=== PATIENT | female | born 1960 | race African-American/Black ===

== ENCOUNTER 2017-05-21 09:46 | Inpatient (IN) | payer OTHER ==
[2017-05-21 10:12] VITALS: BMI 25.8
--- NOTE | 2017-05-21 10:23 | PDOC ---
History of Present Illness <Deshawn Rivers - Last Filed: 05/21/17 14:47> - General History Source: Patient - History of Present Illness Initial Comments: 05/21/17 10:28 HPI obtained from staff @ [facility] Patient is a 56 y.o. female with a PMH of NSTEMI (s/p CABG 03/2017), Still's disease, LLE gangrene, ESRD (on HD MWF, access via L AV fistula) who presents from [facility] with c/o acute onset of rectal bleed. As per nursing staff, an aide was changing the patient's diaper @ 8 a.m. when she noticed patient's diaper was saturated with dark red blood and she noted active bleed from rectum after cleaning the patient. Patient was admitted to [facility] on 05/19 following an admission for an NSTEMI that was followed by a period of acute respiratory failure. Patient denies any current chest pain, shortness of breath, abdominal pain, fevers/chills. Allergy: Iodine Surgical: L AV Fistula, CABG March 14, 2017 x3, PMD: Guzman <Belia Clinton - Last Filed: 05/25/17 18:13> - General Chief Complaint: Rectal Bleed Stated Complaint: RECTAL BLEED Time Seen by Provider: 05/21/17 10:20 Past History <Deshawn Rivers - Last Filed: 05/21/17 14:47> - Past Medical History COPD: Yes Dialysis: Yes (esrf) GI Disorders: Yes (gerd) - Suicide/Smoking/Psychosocial Hx Smoking History: Unknown if ever smoked Have you smoked in the past 12 months: No Information on smoking cessation initiated: No Hx Alcohol Use: No Drug/Substance Use Hx: No <Belia Clinton - Last Filed: 05/25/17 18:13> - Past Medical History Allergies/Adverse Reactions: Allergies Allergy/AdvReac Type Severity Reaction Status Date / Time shellfish derived Allergy Verified 05/21/17 10:06 Home Medications: Ambulatory Orders Aspirin [ASA -] 325 mg PO DAILY 05/21/17 Budesonide [Pulmicort Flexhaler] 90 mcg IH BID 05/21/17 Calcitriol [Rocaltrol -] 0.25 mcg PO ASDIR 05/21/17 Docusate Sodium 100 mg PO TID 05/21/17 Epoetin Keegan [Procrit] 10,000 unit SQ 05/21/17 Ipratropium/Albuterol Sulfate [Iprat-Albut 0.5-3(2.5) mg/3 ml] 3 ml IH Q4H 05/21 Midodrine HCl 5 mg PO ASDIR 05/21/17 Pantoprazole Sodium 40 mg PO DAILY 05/21/17 Sennosides [Senna Lax] 2 tab PO BID 05/21/17 Vit B Comp No.3/Folic/C/Biotin [Leticia-Pancho Rx Tablet] 1 each PO DAILY 05/21/17 Review of Systems - Review of Systems Constitutional: No: Chills, Fever HEENTM: No: Recent change in vision Respiratory: No: Shortness of Breath Cardiac (ROS): No: Chest Pain ABD/GI: Yes: Rectal Bleeding. No: Constipated, Diarrhea, Nausea, Vomiting : No: Burning, Dysuria <Mary Beth,Belia - Last Filed: 05/25/17 18:13> *Physical Exam - Vital Signs Last Vital Signs Temp Pulse Resp BP Pulse Ox 97.5 F L 78 20 67/45 95 05/21/17 10:06 05/21/17 12:00 05/21/17 12:00 05/21/17 12:00 05/21/17 12:00 <Deshawn Rivers - Last Filed: 05/21/17 14:47> - Vital Signs Last Vital Signs Temp Pulse Resp BP Pulse Ox 97.5 F L 81 20 91/45 94 L 05/21/17 10:06 05/21/17 10:06 05/21/17 10:06 05/21/17 10:06 05/21/17 10:06 - Physical Exam Comments: 05/25/17 17:17 GENERAL: obese middle aged female, AAOx2 (name and year), lying in bed, lethargic : active rectal bleed, multiple thrombosed hemmroids - ranging in size from 3- 5 cm HEENT: pallor, dry mucous membranes LUNGS: bibasilar rales, poor inspiratory effort HEART: Regular rate and rhythm, normal S1 and S2 without murmur, rub or gallop. ABDOMEN: obese, NT, normoactive BS EXTREMITY: L AV Fistula (+) thrill, (+) bruit, L gangrenous foot <Belia Clinton - Last Filed: 05/25/17 18:13> ED Treatment Course - LABORATORY CBC & Chemistry Diagram: 05/21/17 11:49 05/21/17 11:49 - ADDITIONAL ORDERS Additional order review: Laboratory Results 05/21/17 05/21/17 05/21/17 13:58 11:52 11:49 PT with INR INR PTT (Actin FS) Sodium Potassium Chloride Carbon Dioxide Anion Gap BUN Creatinine Creat Clearance w eGFR Random Glucose Calcium Total Bilirubin AST ALT Alkaline Phosphatase Creatine Kinase Troponin I B-Natriuretic Peptide Total Protein Albumin Stool Occult Blood Positive Blood Type O POSITIVE O POSITIVE Antibody Screen Negative Crossmatch See Detail 05/21/17 05/21/17 05/21/17 11:49 11:49 11:49 PT with INR 25.60 H INR 2.27 H PTT (Actin FS) 51.8 H Sodium 139 Potassium 3.8 Chloride 97 L Carbon Dioxide 23 Anion Gap 19 H BUN 32 H Creatinine 3.9 H Creat Clearance w eGFR 11.84 Random Glucose 92 Calcium 8.3 L Total Bilirubin 2.1 H AST 53 H ALT 54 Alkaline Phosphatase 108 Creatine Kinase 41 Cancelled Troponin I 1.11 H* Cancelled B-Natriuretic Peptide Cancelled Total Protein 5.5 L Albumin 2.2 L Stool Occult Blood Blood Type Antibody Screen Crossmatch 05/21/17 11:49 RBC 2.65 L MCV 85.7 MCHC 30.2 L RDW 23.8 H MPV 8.8 Neutrophils % 85.3 H Lymphocytes % 5.7 L Monocytes % 7.7 Eosinophils % 0.3 Basophils % 1.0 - RADIOLOGY Radiology Studies Ordered: Category Date Time Status CHEST X-RAY PORTABLE* [RAD] Stat Radiology 05/21/17 11:47 Completed CHEST X-RAY PORTABLE* [RAD] Stat Radiology 05/21/17 14:06 Taken <Deshawn Rivers - Last Filed: 05/21/17 14:47> - LABORATORY CBC & Chemistry Diagram: 05/25/17 05:20 05/25/17 05:20 <Belia Clinton - Last Filed: 05/25/17 18:13> Medical Decision Making - Medical Decision Making 05/25/17 16:50 56 y.o. female presents from [facility] with rectal bleed. Physical exam significant for bright red blood in diaper with large external hemorrhoid however no visible active site of bleeding. DDx includes lower GI bleed- external hemorrhoids, diverticulosis, AVM vs. UGI - PUD, gastritis. VS significant for hypotension (BP 91/45 @ presentation). Will obtain CBC, CMP , likely transfusion. Will obtain 2 units Type O blood while awaiting Type and Screen. Hb 6.9. Difficulty obtaining PIV access. CVC placed in L IJ - patient given 2 units PRBC with SBP improving to 90's. ICU paged for admission. Labs significant for Troponin 1.1 likely 2/2 to demand ischemia 2/2 to anemia 2/ 2 lower GI bleed Patient admitted to ICU for further evaluation. Will continue to monitor while in ED. 05/25/17 18:10 <Belia Clinton - Last Filed: 05/25/17 18:13> *DC/Admit/Observation/Transfer <Deshawn Rivers - Last Filed: 05/21/17 14:47> <Belia Clinton - Last Filed: 05/25/17 18:13> Diagnosis at time of Disposition: GI bleed
[2017-05-21 11:59] LABS: EOS % 0.3 % (0-4.5); HEMATOCRIT 22.7 % (32.4-45.2); LYMPH % 5.7 % (8-40); MCH 25.9 pg (25.7-33.7); MCHC 30.2 g/dl (32.0-36.0); MEAN CELL VOLUME 85.7 fl (80-96); MEAN PLT VOLUME 8.8 fl (7.5-11.1); MONO % 7.7 % (3.8-10.2); NEUT % 85.3 % (42.8-82.8); PLATELET COUNT 111 K/MM3 (134-434); RBC 2.65 M/mm3 (3.60-5.2); RDW 23.8 % (11.6-15.6); WHITE BLOOD COUNT 8.4 K/mm3 (4.0-10.0)
--- NOTE | 2017-05-21 12:10 | PDOC ---
Attending Attestation - Resident Resident Name: Belia Clinton - ED Attending Attestation I have performed the following: I have examined & evaluated the patient, The case was reviewed & discussed with the resident, I agree w/resident's findings & plan, Exceptions are as noted - HPI HPI: 05/21/17 11:52 """The patient is a 56 year old female, with a significant past medical history of DM, HTN, ME s/p CABG (03/2017) and ESRD on Hemodialysis, with recent admission to OSH for respiratory failure, who presents to the emergency department via ems from [facility] for rectal bleeding today as per half-way. The patient was noted to have two episodes of dark red blood with stool this morning at [facility] as per nursing staff. Pt has known h/o hemorrhoids. Is reportedly only on aspirin, no other anticoagulation. The patient denies chest pain, shortness of breath, headache and dizziness. The patient denies fever, chills, nausea, vomit, diarrhea and constipation. The patient denies dysuria, frequency, urgency and hematuria. Allergies: NKDA - Physicial Exam PE: 05/21/17 12:10 "GENERAL: Awake, alert, and fully oriented, in no acute distress HEAD: No signs of trauma EYES: PERRLA, EOMI, sclera anicteric, conjunctiva clear ENT: Auricles normal inspection, hearing grossly normal, nares patent, oropharynx clear without exudates. Moist mucosa NECK: Nontender, no stepoffs, Normal ROM, supple, no lymphadenopathy, JVD, or masses LUNGS: Breath sounds equal, clear to auscultation bilaterally. No wheezes, and no crackles HEART: Regular rate and rhythm, normal S1 and S2, no murmurs, rubs or gallops ABDOMEN: Soft, nontender, normoactive bowel sounds. No guarding, no rebound. No masses RECTAL: + nnamdi blood in diaper, + multiple external hemorrhoids, no palpable internal hemorrhoids, no melena EXTREMITIES: Normal range of motion, no edema. No clubbing or cyanosis. No cords, erythema, or tenderness NEUROLOGICAL: Cranial nerves II through XII intact. 5/5 strength and sensation in all extremities, Normal speech, normal gait, normal cerebellar function SKIN: Warm, Dry, normal turgor, no rashes or lesions noted. " - Critical Care Time Total Critical Care Time: 180 Critical Care Statement: The care of this patient involved high complexity decision making to prevent further life threatening deterioration of the patient 's condition and/or to evaluate & treat vital organ system(s) failure or risk of failure. - Medical Decision Making 05/21/17 12:12 56 F with lower GI bleed. Pt with external hemorrhoids on exam but unclear whether this is source of bleed. Pt is hypotensive in ED to 70s systolic. Possibly 2/2 hemorrhage. - Labs, T&S, coags, lactate - PRBC Transfusion - GI consult - Admit ICU 05/21/17 14:11 Hb 6.9 2u PRBC ordered 3-lumen CVC placed in L IJ under sterile technique. Trop 1.1, likely demand in context of symptomatic anemia. Pt to be admitted to ICU Dr. Iniguez consulted, awaiting callback 05/21/17 14:[address] Noel Procedures - Central Line Central Line Lumen: triple Central Line Position: internal jugular (L) Anesthesia: 1% Lidocaine Amount of anesthesia (ccs): 3 Complications: none Post Central Line Insertion: sutured, good blood return, position confirmed w/ CXR
[2017-05-21 12:19] LABS: INR 2.27 (0.82-1.09); PROTHROMBIN TIME (PATIENT) 25.6 SEC (9.98-11.88)
[2017-05-21 12:22] LABS: ACTIVATED PTT 51.8 SECONDS (26.9-34.4)
[2017-05-21 12:23] LABS: HEMOGLOBIN 6.9 GM/dL (10.7-15.3)
[2017-05-21 12:24] LABS: ALBUMIN 2.2 g/dl (3.4-5.0); ALK PHOS 108 U/L (45-117); ANION GAP 19 (8-16); BILIRUBIN,TOTAL 2.1 mg/dL (0.2-1.0); BLOOD UREA NITROGEN 32 mg/dL (7-18); CALCIUM 8.3 mg/dL (8.5-10.1); CHLORIDE 97 mmol/L (98-107); CO2 23 mmol/L (21-32); CREATININE 3.9 mg/dL (0.55-1.02); GLUCOSE,RANDOM 92 mg/dL (74-106); POTASSIUM 3.8 mmol/L (3.5-5.1); SGOT/AST 53 U/L (15-37); SGPT/ALT 54 U/L (12-78); SODIUM 139 mmol/L (136-145); TOT PROT 5.5 g/dl (6.4-8.2)
--- NOTE | 2017-05-21 13:05 | EKG ---
Test Reason : Blood Pressure : / mmHG Vent. Rate : 077 BPM Atrial Rate : 077 BPM P-R Int : 162 ms QRS Dur : 112 ms QT Int : 438 ms P-R-T Axes : 087 162 -56 degrees QTc Int : 495 ms NORMAL SINUS RHYTHM RIGHT AXIS DEVIATION LOW VOLTAGE QRS INCOMPLETE RIGHT BUNDLE BRANCH BLOCK CANNOT RULE OUT ANTERIOR INFARCT , AGE UNDETERMINED ABNORMAL ECG NO PREVIOUS ECGS AVAILABLE Confirmed by DWAYNE YEPEZ MD ([id number]) on 05/21/2017 1:05:01 PM Referred By: Confirmed By:DWAYNE YEPEZ MD
[2017-05-21] MEDS ORDERED: PANTOPRAZOLE SODIUM 40 MG VIAL IVPUSH ONE (15:42)
[2017-05-21 15:43] LABS: N-TERMINAL BNP 310698.61 pg/ml (5-125)
--- NOTE | 2017-05-21 15:49 | CONSULT ---
Consult Consult Specialty:: Nephrology Reason for Consultation:: ESRD - History of Present Illness Chief Complaint: rectal bleeding History of Present Illness: Pt is a 56 year old female with pmhx of ESRD on HD, CAD s/p cabg, DM, and HTN who was sent to the ER for rectal bleeding. She has a history of hemorrhoids. She is on aspirin. She was found to be anemic. She was dialyzed last night at [facility] dialysis. That was her first treatment there at the time. She denies shortness of breath. She denies chest pain. She is a poor historian. She denies fever or chills. She is awake but has not been able to give much history. - History Source History Provided By: Medical Record - Past Medical History Cardio/Vascular: Yes: CAD Renal/: Yes: Renal Failure, Hemodialysis Heme/Onc: Yes: Anemia Endocrine: Yes: Diabetes Mellitus - Past Surgical History Past Surgical History: Yes: AV Fistula/Graft, CABG - Alcohol/Substance Use Hx Alcohol Use: No - Smoking History Smoking history: Unknown if ever smoked Have you smoked in the past 12 months: No Home Medications - Allergies Allergies/Adverse Reactions: Allergies Allergy/AdvReac Type Severity Reaction Status Date / Time shellfish derived Allergy Verified 05/21/17 10:06 - Home Medications Home Medications: Ambulatory Orders Aspirin [ASA -] 325 mg PO DAILY 05/21/17 Budesonide [Pulmicort Flexhaler] 90 mcg IH BID 05/21/17 Calcitriol [Rocaltrol -] 0.25 mcg PO ASDIR 05/21/17 Docusate Sodium 100 mg PO TID 05/21/17 Ipratropium/Albuterol Sulfate [Iprat-Albut 0.5-3(2.5) mg/3 ml] 3 ml IH Q4H 05/21 Midodrine HCl 5 mg PO ASDIR 05/21/17 Pantoprazole Sodium 40 mg PO DAILY 05/21/17 Sennosides [Senna Lax] 2 tab PO BID 05/21/17 Vit B Comp No.3/Folic/C/Biotin [Leticia-Pancho Rx Tablet] 1 each PO DAILY 05/21/17 Family Disease History - Family Disease History Family History: Denies Review of Systems - Review of Systems Constitutional: reports: No Symptoms Eyes: reports: No Symptoms HENT: reports: No Symptoms Neck: reports: No Symptoms Cardiovascular: reports: No Symptoms Respiratory: reports: No Symptoms Gastrointestinal: reports: Rectal Bleeding Genitourinary: reports: No Symptoms Musculoskeletal: reports: No Symptoms Integumentary: reports: No Symptoms Neurological: reports: No Symptoms Endocrine: reports: No Symptoms Hematology/Lymphatic: reports: No Symptoms Psychiatric: reports: No Symptoms Physical Exam Vital Signs: Vital Signs Temperature 97.4 F L 05/21/17 14:45 Pulse Rate 78 05/21/17 14:45 Respiratory Rate 16 05/21/17 14:45 Blood Pressure 58/37 05/21/17 14:45 O2 Sat by Pulse Oximetry (%) 95 05/21/17 12:00 Eyes: Yes: Conjunctiva Clear HENT: Yes: Atraumatic Cardiovascular: Yes: S1, S2 Respiratory: Yes: On Nasal O2 Gastrointestinal: Yes: Soft Renal/: Yes: Incontinence Musculoskeletal: Yes: Muscle Weakness Edema: Yes Edema: LLE: 1+, RLE: 1+ Neurological: Yes: Confusion Psychiatric: Yes: Agitated Labs: CBC, BMP 05/21/17 11:49 05/21/17 11:49 Laboratory Tests 05/21/17 05/21/17 05/21/17 11:49 11:49 11:52 WBC 8.4 Hgb 6.9 L* Plt Count 111 L Sodium 139 Potassium 3.8 Chloride 97 L Carbon Dioxide 23 Anion Gap 19 H BUN 32 H Creatinine 3.9 H Lactic Acid Calcium 8.3 L Total Bilirubin 2.1 H AST 53 H Stool Occult Blood Positive 05/21/17 13:58 WBC Hgb Plt Count Sodium Potassium Chloride Carbon Dioxide Anion Gap BUN Creatinine Lactic Acid 2.2 H* Calcium Total Bilirubin AST Stool Occult Blood Laboratory Tests 05/21/17 05/21/17 05/21/17 11:49 11:49 13:58 WBC 8.4 Hgb 6.9 L* Plt Count 111 L Sodium 139 Potassium 3.8 Chloride 97 L Anion Gap 19 H BUN 32 H Creatinine 3.9 H Lactic Acid 2.2 H* Calcium 8.3 L Total Bilirubin 2.1 H Troponin I 1.11 H* Imaging - Results Chest X-ray: Report Reviewed Problem List - Problems (1) ESRD (end stage renal disease) Code(s): N18.6 - END STAGE RENAL DISEASE (2) CAD (coronary artery disease) Code(s): I25.10 - ATHSCL HEART DISEASE OF [place] CORONARY ARTERY W/O ANG PCTRS (3) Hx of CABG Code(s): Z95.1 - PRESENCE OF AORTOCORONARY BYPASS GRAFT (4) Anemia Code(s): D64.9 - ANEMIA, UNSPECIFIED (5) GI bleed Code(s): K92.2 - GASTROINTESTINAL HEMORRHAGE, UNSPECIFIED Assessment/Plan Current Medications Generic Name Dose Route Start Last Admin Trade Name Freq PRN Reason Stop Dose Admin Albuterol/Ipratropium 1 amp 05/21/17 18:00 Duoneb - NEB Q4HPO RUEL Chlorhexidine Gluconate 1 applic 05/21/17 22:00 Hibiclens For Decolonization - TP HS RUEL Pantoprazole Sodium 80 mg/ 100 mls @ 10 mls/hr 05/21/17 18:00 Sodium Chloride IVPB Q10H RUEL 8 MG/HR Norepinephrine Bitartrate 8, 500 mls @ 18.75 mls/hr 05/21/17 16:45 000 mcg/ Dextrose IV TITR RUEL Protocol 5 MCG/MIN Midodrine 5 mg 05/21/17 16:45 Proamatine - PO ASDIR RUEL Mupirocin 1 applic 05/21/17 22:00 Bactroban Ointment (For Decolonization) - NS 05/26/17 21:59 BID RUEL Non-Formulary Medication 90 mcg 05/21/17 22:00 Budesonide [Pulmicort Flexhaler] IH BID RUEL Impression 1. ESRD 2. GI bleed likely from hemorrhoids 3. hemorrhoids 4. anemia 5. CAD 6. s/p CABG 7. DM 8. hypotension Plan - transfuse PRBC and repeat hg - will arrange for HD in am - pt admitted to the ICU - discussed with ER and with ICU team - GI eval - cardio eval as she has recent CABG - will follow Dr Plummer
[2017-05-21] MEDS ORDERED: MIDODRINE HCL 5 MG TABLET PO SCH (16:45)
[2017-05-21] MEDS ORDERED: NOREPINEPHRINE BITARTRATE 4 MG/4 ML ML IV ONE (16:49)
[2017-05-21] MEDS: NOREPINEPHRINE BITARTRATE 8,000 MCG in DEXTROSE 5%-WATER - 492 ML IV SCH (17:25)
[2017-05-21] MEDS ORDERED: PNEUMOC 13-VAL CONJ-DIP CRM/PF 0.5 ML DISP.SYRIN IM ONE (18:01)
--- NOTE | 2017-05-21 18:26 | CONSULT ---
Consultation: REQUESTING PROVIDER: CONSULT REQUEST: We have been asked to medically evaluate this patient for GI bleed. Historian: pt (unreliable now), EMR HISTORY OF PRESENT ILLNESS: 56F w/ hx of DM, HTN, ME s/p CABG (03/2017) and ESRD on Hemodialysis (M/W/F), and hemorrhoids who presented via ems from [facility] for rectal bleeding today as per mcc. Per ED note, patient was noted to have two episodes of dark red blood with stool this morning at [facility] as per nursing staff. Pt currently takes aspirin, but no other AC. Last AC was coumadin, taken on 05/11. The patient denies chest pain, shortness of breath, headache, dizziness, fever, chills, nausea, vomit, constipation, dysuria, frequency, urgency and hematuria. Of note, pt was recently admitted to [facility] after presenting with NSTEMI. MD spoke to Dr. Martines, cardiac surgeon at [facility], who stated that pt underwent a CABG, TVR , and MVR. Both valves are all tissue valves. Pt was discharged to [facility] on . Spoke to pt's daughter, Rachel Rodrigez at 8:45pm. Daughter stated that pt's baseline mental status has been AAOx3 and she has been able to fully care for herself. However, she has been "a little confused" since leaving [facility]. Spoke to pt's son Betina and sister Bebeto at 9pm, who stated that they are both the HCPs. Per son, pt underwent some type of procedure at [facility] for LE arterial disease, possibly a bypass of both or one leg by Dr. Shoemaker. REVIEW OF SYSTEMS: CONSTITUTIONAL: Absent: fever, chills, diaphoresis, generalized weakness, malaise, loss of appetite, weight change HEENT: Absent: rhinorrhea, nasal congestion, throat pain, throat swelling, difficulty swallowing, mouth swelling, ear pain, eye pain, visual changes CARDIOVASCULAR: Absent: chest pain, syncope, palpitations, irregular heart rate, lightheadedness , peripheral edema RESPIRATORY: Absent: cough, shortness of breath, dyspnea with exertion, orthopnea, wheezing, stridor, hemoptysis GASTROINTESTINAL: Absent: abdominal pain, abdominal distension, nausea, vomiting Present: blood in stool GENITOURINARY: Absent: dysuria, frequency, urgency, hesitancy, hematuria, flank pain, genital pain MUSCULOSKELETAL: Absent: myalgia, arthralgia, joint swelling, back pain, neck pain SKIN: Absent: rash, itching, pallor HEMATOLOGIC/IMMUNOLOGIC: Absent: easy bleeding, easy bruising, lymphadenopathy, frequent infections ENDOCRINE: Absent: unexplained weight gain, unexplained weight loss, heat intolerance, cold intolerance NEUROLOGIC: Absent: headache, focal weakness or paresthesias, dizziness, unsteady gait, seizure, mental status changes, bladder or bowel incontinence PSYCHIATRIC: Absent: anxiety, depression, suicidal or homicidal ideation, hallucinations. PHYSICAL EXAMINATION Vital Signs - 24 hr 05/21/17 05/21/17 05/21/17 10:06 11:24 12:00 Temperature 97.5 F L Pulse Rate 81 Pulse Rate [ 89 78 Apical] Respiratory 20 20 20 Rate Blood Pressure 91/45 Blood Pressure 78/34 67/45 [Right Arm] O2 Sat by Pulse 94 L 94 L 95 Oximetry (%) 05/21/17 05/21/17 05/21/17 14:30 14:45 14:48 Temperature 97.3 F L 97.4 F L 97.5 F L Pulse Rate 84 Pulse Rate [ 77 78 Apical] Respiratory 18 16 18 Rate Blood Pressure 65/25 Blood Pressure 65/42 58/37 [Right Arm] O2 Sat by Pulse 96 Oximetry (%) 05/21/17 05/21/17 05/21/17 15:58 16:00 17:54 Temperature 97.7 F Pulse Rate 84 Pulse Rate [ 72 74 Apical] Respiratory 16 18 16 Rate Blood Pressure 94/47 Blood Pressure 65/43 70/42 [Right Arm] O2 Sat by Pulse 98 96 Oximetry (%) GENERAL: obese middle aged female, AAOx2 (name and year), lying in bed, lethargic HEENT: pallor, dry mucous membranes LUNGS: bibasilar rales, poor inspiratory effort HEART: Regular rate and rhythm, normal S1 and S2 without murmur, rub or gallop. ABDOMEN: obese, NT, normoactive BS MUSCULOSKELETAL: L AV fistula, gangrenous feet b/l, anasarca, 2/5 strength in b/ l legs, 4/5 strength in UE, unable to palpate distal pulses NEUROLOGICAL: AAOx2, CN 2-12 intact Laboratory Results - last 24 hr 05/21/17 05/21/17 05/21/17 11:49 11:49 11:49 WBC 8.4 RBC 2.65 L Hgb 6.9 L* Hct 22.7 L MCV 85.7 MCH 25.9 MCHC 30.2 L RDW 23.8 H Plt Count 111 L MPV 8.8 Neutrophils % 85.3 H Lymphocytes % 5.7 L Monocytes % 7.7 Eosinophils % 0.3 Basophils % 1.0 PT with INR 25.60 H INR 2.27 H PTT (Actin FS) 51.8 H Sodium Potassium Chloride Carbon Dioxide Anion Gap BUN Creatinine Creat Clearance w eGFR Random Glucose Lactic Acid Calcium Total Bilirubin AST ALT Alkaline Phosphatase Creatine Kinase Cancelled Troponin I Cancelled B-Natriuretic Peptide Cancelled Total Protein Albumin Stool Occult Blood Blood Type Antibody Screen Crossmatch 05/21/17 05/21/17 05/21/17 11:49 11:49 11:52 WBC RBC Hgb Hct MCV MCH MCHC RDW Plt Count MPV Neutrophils % Lymphocytes % Monocytes % Eosinophils % Basophils % PT with INR INR PTT (Actin FS) Sodium 139 Potassium 3.8 Chloride 97 L Carbon Dioxide 23 Anion Gap 19 H BUN 32 H Creatinine 3.9 H Creat Clearance w eGFR 11.84 Random Glucose 92 Lactic Acid Calcium 8.3 L Total Bilirubin 2.1 H AST 53 H ALT 54 Alkaline Phosphatase 108 Creatine Kinase 41 Troponin I 1.11 H* B-Natriuretic Peptide 296150.61 H Total Protein 5.5 L Albumin 2.2 L Stool Occult Blood Positive Blood Type O POSITIVE Antibody Screen Negative Crossmatch See Detail 05/21/17 05/21/17 13:58 13:58 WBC RBC Hgb Hct MCV MCH MCHC RDW Plt Count MPV Neutrophils % Lymphocytes % Monocytes % Eosinophils % Basophils % PT with INR INR PTT (Actin FS) Sodium Potassium Chloride Carbon Dioxide Anion Gap BUN Creatinine Creat Clearance w eGFR Random Glucose Lactic Acid 2.2 H* Calcium Total Bilirubin AST ALT Alkaline Phosphatase Creatine Kinase Troponin I B-Natriuretic Peptide Total Protein Albumin Stool Occult Blood Blood Type O POSITIVE Antibody Screen Crossmatch Active Medications Generic Name Dose Route Start Last Admin Trade Name Freq PRN Reason Stop Dose Admin Albuterol/Ipratropium 1 amp 05/21/17 18:00 Duoneb - NEB Q4HPO RUEL Chlorhexidine Gluconate 1 applic 05/21/17 22:00 Hibiclens For Decolonization - TP HS RUEL Pantoprazole Sodium 80 mg/ 100 mls @ 10 mls/hr 05/21/17 18:00 Sodium Chloride IVPB Q10H RUEL 8 MG/HR Norepinephrine Bitartrate 8, 500 mls @ 18.75 mls/hr 05/21/17 16:45 000 mcg/ Dextrose IV TITR RUEL Protocol 5 MCG/MIN Midodrine 5 mg 05/21/17 16:45 Proamatine - PO ASDIR RUEL Mupirocin 1 applic 05/21/17 22:00 Bactroban Ointment (For Decolonization) - NS 05/26/17 21:59 BID COUNTS INCLUDE 234 BEDS AT THE [facility] Non-Formulary Medication 90 mcg 05/21/17 22:00 Budesonide [Pulmicort Flexhaler] IH BID COUNTS INCLUDE 234 BEDS AT THE [facility] ASSESSMENT/PLAN: 56F w/ hx of DM, HTN, ME s/p CABG (03/2017) and ESRD on Hemodialysis (M/W/F), and hemorrhoids who presents with BRBPR. #GI -likely lower GI bleed source from hemorrhoids, can't r/o other lower sources (anal fissure, rectal or colonic mass, diverticulosis, AVM) or upper ( PUD, gastritis/esophagitis, etc). -Hgb of 6.9, currently receiving 2nd unit of PRBC. Will assess respiratory status before administering more units as pt is ESRD and has anasarca -IV protonix -pt has central line as peripheral access was difficult to obtain in ED -GI on board, Dr. Iniguez. f/u recs -trend CBC -elevated INR of 2.3, possibly 2/2 previous coumadin use vs. liver injury from hypotension -if pt undergoes further episode of rectal bleeding, will administer FFP ( not a contraindication due to valve replacement as valves are all tissue) -elevated T bili, possibly 2/2 liver injury. will trend. -f/u abdomen US -home ASA held #CV -troponinemia, likely due to clearance failure as pt is ESRD. will continue to trend -hypotension, 2/2 GI bleed. Continue with 2nd unit of PRBC. started levophed to maintain MAP > 65. -cardiology on board, Dr. Stapleton. f/u recs -f/u echo -b/l gangrenous feet. vascular on board, Dr. Smith. f/u recs. obtain collateral info from Dr. Shoemaker, vascular surgeon at [facility] about prior procedures. #Resp -duonebs #nephro -f/u bladder scan. unclear if pt makes any urine -renal on board, Dr. Plummer. f/u recs #neuro -AMS, AAOx2 currently, possibly just 2/2 hypotension -f/u CT head to r/o any acute pathology #endo -DM, diet controlled -f/u a1c -BGM q6h -continue home gabapentin 100mg HS #ID -dry gangrene on b/l feet, unclear if acute or chronic -cefazolin given -ID on board, Dr. Collins, f/u recs\\ -f/u LE arterial duplex -can't give AC as pt presented with GI bleed #FEN/ppx -levophed -electrolytes wnl -NPO -protonix -no DVT ppx as elevated INR and GI bleed #HCPs -son Betina and sister Bebeto Case discussed with PGY2, Dr. Downs. -Den Dsouza MD PGY1 ICU Team Visit type - Emergency Visit Emergency Visit: Yes ED Registration Date: 05/21/17 Care time: The patient presented to the Emergency Department on the above date and was hospitalized for further evaluation of their emergent condition. - New Patient This patient is new to me today: Yes Date on this admission: 05/21/17 - Critical Care Critical Care patient: Yes Total Critical Care Time (in minutes): 45 Critical Care Statement: The care of this patient involved high complexity decision making to prevent further life threatening deterioration of the patient 's condition and/or to evaluate & treat vital organ system(s) failure or risk of failure.
[2017-05-21] MEDS: WITCH HAZEL 50% (TUCKS) 40 PAD/JAR PAD TP SCH ×2 (19:00→23:15)
[2017-05-21] MEDS ORDERED: CALCITRIOL 0.25 MCG CAPSULE (FP) PO SCH (19:15)
--- NOTE | 2017-05-21 19:17 | CONSULT ---
Consult Consult Specialty:: CCM - History of Present Illness Chief Complaint: hypotension, hematochezia History of Present Illness: Briefly Ms Cade is a 56 year old woman with a significant past medical history notable for DM, HTN, [place] s/p CABG, valvular disease S/p tissue MVR/TVR and ESRD on Hemodialysis (TWF), discharded from [facility] to [facility] on 05/19. Pt on single antiplt therapy (ASA) and anticoagulation with coumadin. Today transferred from [place] to ED for rectal bleeding. Pt was noted to have two episodes of dark red blood in stool. No know hx of UGIB, but known hx of hemorrhoids. In ED pt was afebrile, hypotensive 70/30, HR 90, RR 18. Hgb was 6.9, unk baseline. Pt given IVF and ordered PRBC. Central line was placed due to poor access. PPI drip started, GI Dr Mely consulted. No further bleeding noted. BP improved with volume/blood. Renal consulted, plan for HD in am. No emergent need for renal replacement. Transferred to ICU without incident. - History Source History Provided By: Patient, Medical Record Limitations to Obtaining History: Poor Historian - Past Medical History Cardio/Vascular: Yes: CAD, [place] Renal/: Yes: Renal Failure, Hemodialysis Endocrine: Yes: Diabetes Mellitus - Past Surgical History Past Surgical History: Yes: AV Fistula/Graft, CABG - Alcohol/Substance Use Hx Alcohol Use: No - Smoking History Smoking history: Unknown if ever smoked Have you smoked in the past 12 months: No - Social History Usual Living Arrangement: [facility] ADL: Support Services History of Recent Travel: No Home Medications - Allergies Allergies/Adverse Reactions: Allergies Allergy/AdvReac Type Severity Reaction Status Date / Time shellfish derived Allergy Verified 05/21/17 10:06 - Home Medications Home Medications: Ambulatory Orders Aspirin [ASA -] 325 mg PO DAILY 05/21/17 Budesonide [Pulmicort Flexhaler] 90 mcg IH BID 05/21/17 Calcitriol [Rocaltrol -] 0.25 mcg PO ASDIR 05/21/17 Docusate Sodium 100 mg PO TID 05/21/17 Epoetin Keegan [Procrit] 10,000 unit SQ 05/21/17 Ipratropium/Albuterol Sulfate [Iprat-Albut 0.5-3(2.5) mg/3 ml] 3 ml IH Q4H 05/21 Midodrine HCl 5 mg PO ASDIR 05/21/17 Pantoprazole Sodium 40 mg PO DAILY 05/21/17 Sennosides [Senna Lax] 2 tab PO BID 05/21/17 Vit B Comp No.3/Folic/C/Biotin [Leticia-Pancho Rx Tablet] 1 each PO DAILY 05/21/17 Family Disease History - Family Disease History Family History: Unable to Obtain (Na) Review of Systems Unable to obtain ROS, reason: pt refused to express, Findings/Remarks: Per report, no other prodrome, no chest pain, no shortness of breath, no n/v/d, no new pain. Physical Exam Vital Signs: Vital Signs Temperature 97.7 F 05/21/17 17:54 Pulse Rate 82 05/21/17 18:47 Respiratory Rate 16 05/21/17 18:47 Blood Pressure 98/42 05/21/17 18:47 O2 Sat by Pulse Oximetry (%) 96 05/21/17 16:00 Constitutional: Yes: Well Nourished, No Distress Eyes: Yes: Conjunctiva Clear, PERRL HENT: Yes: Atraumatic, Normocephalic Neck: Yes: Supple, Trachea Midline. No: Lymphadenopathy Cardiovascular: Yes: Regular Rate and Rhythm, S1, S2 Respiratory: Yes: Regular, CTA Bilaterally, On Nasal O2. No: Accessory Muscle Use Gastrointestinal: Yes: Normal Bowel Sounds, Soft, Abdomen, Obese ...Rectal Exam: Yes: Guaiac Positive Renal/: Yes: Anuria Breast(s): Yes: WNL Extremities: Yes: Cool, Delayed Capillary Refill, Other (dry gangrene R > L on bilater LE. warm. multiple areas on bilateral LE with various stages of wound healing.) Edema: Yes Edema: LUE: 2+, RUE: 2+, LLE: Trace, RLE: Trace Peripheral Pulses WNL: No (poor perfusion, weak pulses bilat LE) Integumentary: Yes: Skin Tear, Venous Stasis Changes Neurological: Yes: Cran Nerves II-XII Intact ...Motor Strength: WNL Labs: CBC, BMP 05/21/17 11:49 05/21/17 11:49 Imaging - Results Chest X-ray: Image Reviewed (no acute pathology.) EKG: Report Reviewed (NORMAL SINUS RHYTHM RIGHT AXIS DEVIATION LOW VOLTAGE QRS INCOMPLETE RIGHT BUNDLE BRANCH BLOCK CANNOT RULE OUT ANTERIOR INFARCT , AGE UNDETERMINED ABNORMAL ECG NO PREVIOUS ECGS AVAILABLE Confirmed by DWAYNE YEPEZ MD ([id number]) on 05/21/2017 1:05:01 PM), Image Reviewed Problem List - Problems (1) Anemia Code(s): D64.9 - ANEMIA, UNSPECIFIED (2) CAD (coronary artery disease) Code(s): I25.10 - ATHSCL HEART DISEASE OF [place] CORONARY ARTERY W/O ANG PCTRS (3) ESRD (end stage renal disease) Code(s): N18.6 - END STAGE RENAL DISEASE (4) GI bleed Code(s): K92.2 - GASTROINTESTINAL HEMORRHAGE, UNSPECIFIED (5) Hx of CABG Code(s): Z95.1 - PRESENCE OF AORTOCORONARY BYPASS GRAFT Assessment/Plan A/ 56 y/o woman w/ ESRD on HD, CAD, hx of IL, valvular disease s/p MVR/TVR on ASA, ? on coumadin now with GIB and anemia likley from hemmrhoids exacerbate by ?coagulopathy, antiplt therapy P/ -PPI gtt -hold ASA -GI consult -2PRBC with serial CBC -FFP and DDAVP if cont bleeding -serial trop x3 -Renal following, HD tomorrow if stable -cont midodrine -ICU monitoring -Nicole Vidales ACNP [id number] Critical Care Time/MDM Note Total Critical Care Time: 35 Critical Care Statement: The care of this patient involved high complexity decision making to prevent further life threatening deterioration of the patient 's condition and/or to evaluate & treat vital organ system(s) failure or risk of failure.
[2017-05-21] MEDS ORDERED: CEFAZOLIN 1 GM/D5W 1 GM/50 ML BAG IVPB ONE (20:00)
[2017-05-21 20:47] LABS: EOS % 0.4 % (0-4.5); MCHC 32.6 g/dl (32.0-36.0)
[2017-05-21 20:54] LABS: BASO % 0.5 % (0-2.0); HEMATOCRIT 29.6 % (32.4-45.2); HEMOGLOBIN 9.7 GM/dL (10.7-15.3); LYMPH % 7.2 % (8-40); MCH 27.5 pg (25.7-33.7); MEAN CELL VOLUME 84.5 fl (80-96); MEAN PLT VOLUME 10.9 fl (7.5-11.1); MONO % 7.9 % (3.8-10.2); RBC 3.51 M/mm3 (3.60-5.2); RDW 21.6 % (11.6-15.6); WHITE BLOOD COUNT 10.8 K/mm3 (4.0-10.0)
[2017-05-21 20:59] LABS: INR 1.9 (0.82-1.09); PROTHROMBIN TIME (PATIENT) 21.5 SEC (9.98-11.88)
[2017-05-21 21:02] LABS: ACTIVATED PTT 44.5 SECONDS (26.9-34.4)
[2017-05-21] MEDS: ALBUTEROL SO4 2.5/IPRATROPIUM 0.5 INH SOL 3 ML VIAL.NEB. NEB SCH (21:12)
[2017-05-21] MEDS ORDERED: PT OWN MED DRAWER 7, Y5N ONE (21:23)
[2017-05-21] MEDS: MOMETASONE FUROATE 220 MCG/IH INHALER IH SCH (21:30)
[2017-05-21] MEDS: CHLORHEXIDINE GLUCONATE 4% CLEANSER FOR DECOLONIZATION TP SCH (21:30)
[2017-05-21] MEDS ORDERED: PANTOPRAZOLE SODIUM 40 MG VIAL IVPUSH SCH (22:00)
[2017-05-21 22:20] LABS: PLATELET ESTIMATE SLT DECREASE
[2017-05-21] MEDS: PANTOPRAZOLE SODIUM 80 MG in SODIUM CHLORIDE 100 ML IVPB SCH (22:36)
[2017-05-21] MEDS: MUPIROCIN 2% TOPICAL OINTMENT FOR DECOLONIZATION NS SCH (22:38)
[2017-05-21 22:47] LABS: ALBUMIN 2.5 g/dl (3.4-5.0); ANION GAP 19 (8-16); BILIRUBIN,DIRECT 2.1 mg/dL (0.0-0.2); BILIRUBIN,TOTAL 3.4 mg/dL (0.2-1.0); BLOOD UREA NITROGEN 38 mg/dL (7-18); CALCIUM 8.4 mg/dL (8.5-10.1); CHLORIDE 96 mmol/L (98-107); CO2 22 mmol/L (21-32); CREATININE 4.1 mg/dL (0.55-1.02); GLUCOSE,RANDOM 156 mg/dL (74-106); POTASSIUM 4.1 mmol/L (3.5-5.1); SGOT/AST 53 U/L (15-37); SGPT/ALT 54 U/L (12-78); SODIUM 137 mmol/L (136-145); TOT PROT 6.3 g/dl (6.4-8.2)
[2017-05-21 23:01] LABS: ALK PHOS 127 U/L (45-117)
[2017-05-22] MEDS: MIDODRINE HCL 5 MG TABLET PO SCH ×4 (01:00→17:25)
[2017-05-22] MEDS: ALBUTEROL SO4 2.5/IPRATROPIUM 0.5 INH SOL 3 ML VIAL.NEB. NEB SCH ×6 (02:00→21:06)
[2017-05-22] MEDS: WITCH HAZEL 50% (TUCKS) 40 PAD/JAR PAD TP SCH ×6 (03:29→23:16)
[2017-05-22] MEDS: PANTOPRAZOLE SODIUM 80 MG in SODIUM CHLORIDE 100 ML IVPB SCH ×3 (04:00→16:20)
[2017-05-22 06:31] LABS: BASO % 0.5 % (0-2.0); EOS % 0.1 % (0-4.5); HEMATOCRIT 29.3 % (32.4-45.2); HEMOGLOBIN 9.5 GM/dL (10.7-15.3); LYMPH % 4.2 % (8-40); MCH 27.4 pg (25.7-33.7); MCHC 32.5 g/dl (32.0-36.0); MEAN CELL VOLUME 84.3 fl (80-96); MEAN PLT VOLUME 9.4 fl (7.5-11.1); MONO % 8.8 % (3.8-10.2); NEUT % 86.4 % (42.8-82.8); PLATELET COUNT 142 K/MM3 (134-434); RBC 3.47 M/mm3 (3.60-5.2); RDW 19.8 % (11.6-15.6); WHITE BLOOD COUNT 12.2 K/mm3 (4.0-10.0)
[2017-05-22 06:35] LABS: ADD RBC MORPHOLOGY YES
[2017-05-22 06:45] LABS: INR 1.94 (0.82-1.09); PROTHROMBIN TIME (PATIENT) 21.9 SEC (9.98-11.88)
[2017-05-22 06:48] LABS: ACTIVATED PTT 50.2 SECONDS (26.9-34.4)
[2017-05-22 07:05] LABS: CHLORIDE 94 mmol/L (98-107); POTASSIUM 4.1 mmol/L (3.5-5.1); SODIUM 135 mmol/L (136-145)
[2017-05-22 07:25] LABS: ALBUMIN 2.5 g/dl (3.4-5.0); ALK PHOS 118 U/L (45-117); ANION GAP 22 (8-16); BILIRUBIN,TOTAL 3.4 mg/dL (0.2-1.0); BLOOD UREA NITROGEN 41 mg/dL (7-18); CALCIUM 8.6 mg/dL (8.5-10.1); CO2 19 mmol/L (21-32); CREATININE 4.3 mg/dL (0.55-1.02); GLUCOSE,RANDOM 200 mg/dL (74-106); MAGNESIUM 2.4 mg/dL (1.8-2.4); PHOSPHOROUS 4.7 mg/dL (2.5-4.9); SGOT/AST 46 U/L (15-37); SGPT/ALT 48 U/L (12-78); TOT PROT 6.1 g/dl (6.4-8.2)
--- NOTE | 2017-05-22 08:07 | PN ---
Progress Note, Physician Chief Complaint: ID Full note dictated Alert NAD Admitted GI bleeding hypotensive - Current Medication List Current Medications: Active Medications Albuterol/Ipratropium (Duoneb -) 1 amp NEB Q4HPO [facility] Last Admin: 05/22/17 06:15 Dose: Not Given Calcitriol (Rocaltrol -) 0.25 mcg PO ASDIR RUEL Chlorhexidine Gluconate (Hibiclens For Decolonization -) 1 applic TP HS [facility] Last Admin: 05/21/17 21:30 Dose: 1 applic Gabapentin (Neurontin -) 100 mg PO HS RUEL Pantoprazole Sodium 80 mg/ (Sodium Chloride) 100 mls @ 10 mls/hr IVPB Q10H RUEL PRN Reason: 8 MG/HR Last Admin: 05/22/17 04:00 Dose: 10 mls/hr Norepinephrine Bitartrate 8, (000 mcg/ Dextrose) 500 mls @ 18.75 mls/hr IV TITR RUEL; 5 MCG/MIN PRN Reason: Protocol Last Titration: 05/22/17 03:00 Dose: 20 mcg/min, 75 mls/hr Midodrine (Proamatine -) 5 mg PO TID-MID [facility] Last Admin: 05/22/17 01:00 Dose: 5 mg Mometasone Furoate (Asmanex 220mcg -) 1 puff IH HS [facility] Last Admin: 05/21/17 21:30 Dose: 1 puff Multivit/Ca Carb/B Cmplx/FA/Prenat (Nephro-Pancho -) 1 tablet PO DAILY [facility] Mupirocin (Bactroban Ointment (For Decolonization) -) 1 applic NS BID [facility] Stop: 05/26/17 21:59 Last Admin: 05/21/17 22:38 Dose: 1 applic Witch Peggy/Glycerin (Tucks Pads -) 1 pad TP Q4H [facility] Last Admin: 05/22/17 06:29 Dose: 1 pad - Objective Vital Signs: Vital Signs Temperature 97.8 F 05/22/17 06:00 Pulse Rate 98 H 05/22/17 06:00 Respiratory Rate 12 05/22/17 06:00 Blood Pressure 80/16 05/22/17 06:00 O2 Sat by Pulse Oximetry (%) 100 05/21/17 21:00 Constitutional: Yes: No Distress Cardiovascular: Yes: Regular Rate and Rhythm, S1, S2 Respiratory: Yes: WNL, Regular, CTA Bilaterally Gastrointestinal: Yes: Soft. No: Tenderness Extremities: Yes: Other (LE gangrene Left arm fistula) Labs: CBC, BMP 05/22/17 05:40 05/22/17 05:40 INR, PTT INR 1.94 (0.82-1.09) H 05/22/17 05:40 Problem List - Problems (1) Sepsis Code(s): A41.9 - SEPSIS, UNSPECIFIED ORGANISM (2) Anemia Code(s): D64.9 - ANEMIA, UNSPECIFIED (3) ESRD (end stage renal disease) Code(s): N18.6 - END STAGE RENAL DISEASE (4) GI bleed Code(s): K92.2 - GASTROINTESTINAL HEMORRHAGE, UNSPECIFIED Assessment/Plan Laboratory Tests 05/21/17 05/21/17 05/21/17 11:49 13:58 20:00 WBC 8.4 Hgb 6.9 L* Hct 22.7 L Plt Count 111 L INR BUN Creatinine Lactic Acid 2.2 H* 1.3 Direct Bilirubin AST ALT Alkaline Phosphatase 05/21/17 05/22/17 05/22/17 22:10 05:40 05:40 WBC 12.2 H Hgb 9.5 L Hct Plt Count 142 D INR 1.94 H BUN Creatinine Lactic Acid Direct Bilirubin 2.1 H AST 53 H ALT 54 Alkaline Phosphatase 127 H 05/22/17 05:40 WBC Hgb Hct Plt Count INR BUN 41 H Creatinine 4.3 H Lactic Acid Direct Bilirubin AST ALT Alkaline Phosphatase Assessment Dark red blood from the rectum Anemia ESRD LE gangrene Prosthetic heart valve CAD Doubt sepsis though at high risk Plan BLood cultures sent neg this am so far Hold on any antibiotics for now Hermelinda TELLES
--- NOTE | 2017-05-22 08:42 | CONS ---
INFECTIOUS DISEASE CONSULTATION DATE OF CONSULTATION: DATE OF DICTATION: 05/22/2017 HISTORY OF PRESENT ILLNESS: This is a 56-year-old female with end-stage renal disease admitted to the ICU, who I am asked to see for evaluation of hypotension and possible sepsis. The patient was originally admitted with dark red blood coming from her rectum, noted early yesterday morning. She has a lengthy past medical history for diabetes mellitus, coronary artery bypass graft surgery, and valvular heart disease with tissue mitral valve and tricuspid valve replacement. She is also on dialysis through a left arm AV fistula. She had only recently been discharged from [facility] to the [facility] May 19. She had been on aspirin and anticoagulation with Coumadin. She was also noted to have gangrene of both lower extremities. She was brought to the hospital now for rectal bleeding with a known history of hemorrhoids. Here, she was afebrile but hypotensive with a blood pressure of 70/30, heart rate of 90, respiratory rate of 18, and a hemoglobin of 6.9. She was given intravenous fluids and packed red blood cells were ordered for her. GI consult was requested, and she was transferred to the unit without incident. Currently, she is alert, oriented, and appears in no acute distress. PAST MEDICAL HISTORY: As noted above. ALLERGIES: SHELLFISH. MEDICATIONS: Aspirin, Coumadin, Protonix, Procrit, calcitriol. FAMILY HISTORY: Reviewed, noncontributory. SOCIAL HISTORY: Nonsmoker. Lives with her daughter, but most recently in the [facility]. No drug use. HIV status unknown. REVIEW OF SYSTEMS: Respiratory: No cough, shortness of breath. Cardiac: No chest pain, palpitation, syncope. History of bivalvular heart valve replacement. Gastrointestinal: Rectal bleeding. No abdominal pain, hematemesis, vomiting. Genitourinary: End-stage renal disease. PHYSICAL EXAMINATION: General: She was an alert woman. Vital Signs: Temperature was 97.8, pulse 98, blood pressure 80/ , respirations 12. Neck: Supple without adenopathy. Lungs: Clear to percussion and auscultation. Heart: S1, S2. Regular rhythm without audible murmur. Abdomen: Normoactive bowel sounds. Soft, nontender. No organomegaly. Rectal: Guaiac positive. Extremities: Dry gangrene of the lower extremities with various stages of wounds. Peripheral edema noted in her hands and lower extremities. DIAGNOSTIC DATA: The white count is 8.4, hemoglobin 6.9, platelets of 111. INR 1.94. Chemistries consistent with end-stage renal disease. Bilirubin 3.4. AST 53, alkaline phosphatase 127. Troponin of 1.4 and 1.24. Two sets of blood cultures drawn May 21, currently pending. Chest x-ray shows pulmonary vascular congestion. No obvious infiltrate seen. ASSESSMENT: A 56-year-old female with end-stage renal disease, multiple comorbidities including mitral and tricuspid valve replacement, lower extremity gangrene, admitted with gastrointestinal bleeding, possibly secondary to bleeding hemorrhoids. The patient is being transfused packed cells. She is hypotensive , but this is most likely on the basis of her severe anemia. She has no fever, chills , and though she is at high risk for infection, I am inclined to observe her off of antibiotics at this time for ow with careful monitering for signs of evolving infection. 2 sets of blood cultures sent, thus far negative this morning. Chest x-ray without evidence of pneumonia. Await GI consultation and vascular consultation for lower extremity gangrene. MARLA DAVIS M.D. CHAYITO/[id number] MTDD
--- NOTE | 2017-05-22 09:18 | CON.GI ---
Consult Consult Specialty:: Gi - History of Present Illness History of Present Illness: 56 y/o F with ESRD , s/p MVR and TVR with porcine valve on coumadin, gangrenous foot was admiited because of rectal bleeding. In the ER, she was noted stefanie severely anemic and hypotensive. Overnight received 2 units of PRBC with adequate rise in Hgb but remain to be in pressors. She denies abdominal pain, nausea and vomiting. - History Source History Provided By: Medical Record - Past Medical History Cardio/Vascular: Yes: CAD, [place] Renal/: Yes: Renal Failure, Hemodialysis Endocrine: Yes: Diabetes Mellitus - Past Surgical History Past Surgical History: Yes: AV Fistula/Graft, CABG - Alcohol/Substance Use Hx Alcohol Use: No - Smoking History Smoking history: Unknown if ever smoked Have you smoked in the past 12 months: No - Social History Usual Living Arrangement: Jail ADL: Support Services History of Recent Travel: No Home Medications - Allergies Allergies/Adverse Reactions: Allergies Allergy/AdvReac Type Severity Reaction Status Date / Time shellfish derived Allergy Verified 05/21/17 10:06 - Home Medications Home Medications: Ambulatory Orders Aspirin [ASA -] 325 mg PO DAILY 05/21/17 Budesonide [Pulmicort Flexhaler] 90 mcg IH BID 05/21/17 Calcitriol [Rocaltrol -] 0.25 mcg PO ASDIR 05/21/17 Docusate Sodium 100 mg PO TID 05/21/17 Epoetin Keegan [Procrit] 10,000 unit SQ 05/21/17 Ipratropium/Albuterol Sulfate [Iprat-Albut 0.5-3(2.5) mg/3 ml] 3 ml IH Q4H 05/21 Midodrine HCl 5 mg PO ASDIR 05/21/17 Pantoprazole Sodium 40 mg PO DAILY 05/21/17 Sennosides [Senna Lax] 2 tab PO BID 05/21/17 Vit B Comp No.3/Folic/C/Biotin [Leticia-Pancho Rx Tablet] 1 each PO DAILY 05/21/17 Review of Systems - Review of Systems Constitutional: denies: Fever Eyes: denies: Blind Spots HENT: denies: Difficult Swallowing, Throat Pain Cardiovascular: denies: Chest Pain Respiratory: denies: SOB Gastrointestinal: reports: Rectal Bleeding. denies: Abdominal Pain, Bloating, Constipation, Diarrhea, Nausea, Vomiting Physical Exam-GI Vital Signs: Vital Signs Temperature 97.8 F 05/22/17 06:00 Pulse Rate 96 H 05/22/17 08:00 Respiratory Rate 12 05/22/17 08:00 Blood Pressure 82/21 05/22/17 08:00 O2 Sat by Pulse Oximetry (%) 100 05/21/17 21:00 Constitutional: Yes: Obese Eyes: Yes: Conjunctiva Clear HENT: Yes: Atraumatic Neck: Yes: Trachea Midline Cardiovascular: Yes: Regular Rate and Rhythm Respiratory: Yes: CTA Bilaterally ...Palpate: Yes: Soft. No: Firm/Rigid, Guarding, Hepatomegaly, Mass, Pulsatile Mass, Splenomegaly Labs: CBC, BMP 05/22/17 05:40 05/22/17 05:40 INR, PTT INR 1.94 (0.82-1.09) H 05/22/17 05:40 Ambulatory Orders Aspirin [ASA -] 325 mg PO DAILY 05/21/17 Budesonide [Pulmicort Flexhaler] 90 mcg IH BID 05/21/17 Calcitriol [Rocaltrol -] 0.25 mcg PO ASDIR 05/21/17 Docusate Sodium 100 mg PO TID 05/21/17 Epoetin Keegan [Procrit] 10,000 unit SQ 05/21/17 Ipratropium/Albuterol Sulfate [Iprat-Albut 0.5-3(2.5) mg/3 ml] 3 ml IH Q4H 05/21 Midodrine HCl 5 mg PO ASDIR 05/21/17 Pantoprazole Sodium 40 mg PO DAILY 05/21/17 Sennosides [Senna Lax] 2 tab PO BID 05/21/17 Vit B Comp No.3/Folic/C/Biotin [Leticia-Pancho Rx Tablet] 1 each PO DAILY 05/21/17 Problem List - Problems (1) Lower GI bleed Assessment/Plan: R> may have ice chips transfuse 1 unite PRBC Code(s): K92.2 - GASTROINTESTINAL HEMORRHAGE, UNSPECIFIED (2) Sepsis Assessment/Plan: associated with gangrenous foot R> consider to continue Cefazolin ID consult Code(s): A41.9 - SEPSIS, UNSPECIFIED ORGANISM
[2017-05-22] MEDS: VITAMIN B COMP W-C 1 EA TABLET PO SCH (10:11)
[2017-05-22] MEDS: MUPIROCIN 2% TOPICAL OINTMENT FOR DECOLONIZATION NS SCH ×2 (10:12→21:31)
[2017-05-22] MEDS: NOREPINEPHRINE BITARTRATE 8,000 MCG in DEXTROSE 5%-WATER - 492 ML IV SCH ×2 (10:13→17:23)
[2017-05-22 10:23] LABS: ANISOCYTOSIS 3+; MACROCYTOSIS 2+; PLATELET ESTIMATE DECREASED; TARGET CELLS 3+; TEAR DROP CELLS 1+
--- NOTE | 2017-05-22 10:36 | HP ---
Admitting History and Physical - Primary Care Physician PCP: Raul Solomon - Admission Chief Complaint: GI bleed History of Present Illness: Pt examined by me in ICU 56 yrs old female sent from [facility] for GI bleeding-Found bloody stools in diaper yesterday . She was a new admit to [place]-- admitted on 05/19 from [facility]-- she was admitted there for NSTEMI- CABG, MV and TV repair done in 03/07/17. She is on Coumadin. Was dialysed prior to arrival in [place]- Friday through left AVF. Pt is alert but confused-- she is able to tell who her emergency contact is,. Does not know why she was in [facility]. She received 2 units of PRBC so far. Spoke to pt's sister - Estella Mcqueen-- pt was at [facility] for chest pain - transferred to [facility] for NSTEMI-- underwent CABG, MV and TV repair-- porcine valve on 03/07/17. Had recent angiogram /revascularisation done for right leg and left arm last month. She said that after surgery for CABG, pt became confused She used to walk prior to the admission to [facility] as per sister. ([place] history- New admission from Admitted resident female 56 y/o at [facility] came in the unit via stretcher accompanied by EMS with primary dx: NSTEMI/ CABG, Steal syndrome gangrene L digit, LUE revascularation/ligation s/p angiogram, resp failure, ESRD secondary dx: Hemodialysis MWF, via L avf ,HTN , DM, HDL .) History Source: Family Member (sister), Transfer Record Limitations to Obtaining History: Poor Historian - Past Medical History Cardiovascular: Yes: CAD (CABG, MV and TV repair-- porcine valve 03/07/17), HTN, Hyperlipdemia, [place] Renal/: Yes: Renal Failure, Hemodialysis Heme/Onc: Yes: Anemia Endocrine: Yes: Diabetes Mellitus Additional Past Medical History: PAD, angiograms - Past Surgical History Past Surgical History: Yes: AV Fistula/Graft, CABG, Valve Replacement - Smoking History Smoking history: Unknown if ever smoked Have you smoked in the past 12 months: No - Alcohol/Substance Use Hx Alcohol Use: No - Social History ADL: Support Services History of Recent Travel: No Home Medications - Allergies Allergies/Adverse Reactions: Allergies Allergy/AdvReac Type Severity Reaction Status Date / Time shellfish derived Allergy Verified 05/21/17 10:06 - Home Medications Home Medications: Ambulatory Orders Aspirin [ASA -] 325 mg PO DAILY 05/21/17 Budesonide [Pulmicort Flexhaler] 90 mcg IH BID 05/21/17 Calcitriol [Rocaltrol -] 0.25 mcg PO ASDIR 05/21/17 Docusate Sodium 100 mg PO TID 05/21/17 Epoetin Keegan [Procrit] 10,000 unit SQ 05/21/17 Ipratropium/Albuterol Sulfate [Iprat-Albut 0.5-3(2.5) mg/3 ml] 3 ml IH Q4H 05/21 Midodrine HCl 5 mg PO ASDIR 05/21/17 Pantoprazole Sodium 40 mg PO DAILY 05/21/17 Sennosides [Senna Lax] 2 tab PO BID 05/21/17 Vit B Comp No.3/Folic/C/Biotin [Leticia-Pancho Rx Tablet] 1 each PO DAILY 05/21/17 Review of Systems - Review of Systems Constitutional: denies: Chills, Fever Cardiovascular: denies: Chest Pain Physical Examination Vital Signs: Vital Signs Temperature 98 F 05/22/17 10:00 Pulse Rate 100 H 05/22/17 10:13 Respiratory Rate 12 05/22/17 10:00 Blood Pressure 87/35 05/22/17 10:13 O2 Sat by Pulse Oximetry (%) 100 05/21/17 21:00 Constitutional: Yes: No Distress, Calm Cardiovascular: Yes: Pulse Irregular, Murmur Respiratory: Yes: Diminished Gastrointestinal: Yes: Normal Bowel Sounds, Soft. No: Tenderness Extremities: Yes: Cold, Other (rt foot gangrene, left ring finger gangrene. Debo to right groin.) Edema: Yes Labs: CBC, BMP 05/22/17 05:40 05/22/17 05:40 Imaging - Results Chest X-ray: Image Reviewed (congestion) EKG: Image Reviewed (NSR) Problem List - Problems (1) Anemia Code(s): D64.9 - ANEMIA, UNSPECIFIED (2) CAD (coronary artery disease) Code(s): I25.10 - ATHSCL HEART DISEASE OF [place] CORONARY ARTERY W/O ANG PCTRS (3) ESRD (end stage renal disease) Code(s): N18.6 - END STAGE RENAL DISEASE (4) GI bleed Code(s): K92.2 - GASTROINTESTINAL HEMORRHAGE, UNSPECIFIED (5) Gangrene Code(s): I96 - GANGRENE, NOT ELSEWHERE CLASSIFIED (6) H/O heart valve replacement with bioprosthetic valve Code(s): Z95.3 - PRESENCE OF XENOGENIC HEART VALVE (7) Hx of CABG Code(s): Z95.1 - PRESENCE OF AORTOCORONARY BYPASS GRAFT (8) Lower GI bleed Code(s): K92.2 - GASTROINTESTINAL HEMORRHAGE, UNSPECIFIED (9) Sepsis Code(s): A41.9 - SEPSIS, UNSPECIFIED ORGANISM Assessment/Plan A/P Hypovolemic shock GI bleeding ESRD on HD CAD , s/p CABG, MV and TV replacement AMS Gangrene of rt foot and left ring finger -- on Levophed GTT -- Spoke with Vascular surgeon PA -- PRBC during dialysis today -- GI eval noted -- hold coumadin -- may need amputation -- informed sister-- stated that she will be speaking with pt's children about this. Spent 30 min - including examination, documentation, speaking with staff , family member
--- NOTE | 2017-05-22 11:15 | CONSULT ---
- Consultation REQUESTING PROVIDER: CONSULT REQUEST: We have been asked to surgically evaluate this patient for Gangrene of left hand/left ring finger and b/l feet/toes in patient with recent angio for revascularzation of left AVF and multiple co-morbidities. PCP:Beatris Osman HISTORY OF PRESENT ILLNESS: 56F w/ hx of DM, HTN, ME s/p CABG (03/2017) and ESRD on Hemodialysis (M/W/F), and hemorrhoids who presented via ems from [facility] for rectal bleeding. Per ED note, patient was noted to have two episodes of dark red blood with stool yesterday morning at [facility] as per nursing staff. Pt currently takes aspirin, but no other AC. Last AC was coumadin, taken on 05/11. Of note, pt was recently admitted to [facility] after presenting with NSTEMI. Dr. Martines, cardiac surgeon at [facility] preformed a CABG, TVR, and MVR on 03/07/17 Both valves are all tissue valves. Pt was discharged to [facility] on 05/19. The patient states that she lives with her daughter. According to patient's daughter, Rachel Rodrigez, the pt's baseline mental status has been AAOx3 and she has been able to fully care for herself, however, she has been "a little confused" since leaving [facility]. The patient was followed by Dr Shoemaker at [facility] and recently underwent LUE revascularation of her left AVF which she received HD through. The patient's daughter also reported that she had a vascular procedure done on the right leg recently but is unsure what procedure was preformed. We are still awaiting the complete chart from [facility] regarding hospital course. PMHx: HTN , DM-uncontrolled, HDL, CAD, PAD PSHx: CABG, TVR, MVR Home Medications Medication Instructions Recorded Aspirin [ASA -] 325 mg PO DAILY 05/21/17 Budesonide [Pulmicort Flexhaler] 90 mcg IH BID 05/21/17 Calcitriol [Rocaltrol -] 0.25 mcg PO ASDIR 05/21/17 Docusate Sodium 100 mg PO TID 05/21/17 Epoetin Keegan [Procrit] 10,000 unit SQ 05/21/17 Ipratropium/Albuterol Sulfate 3 ml IH Q4H 05/21/17 [Iprat-Albut 0.5-3(2.5) mg/3 ml] Midodrine HCl 5 mg PO ASDIR 05/21/17 Pantoprazole Sodium 40 mg PO DAILY 05/21/17 Sennosides [Senna Lax] 2 tab PO BID 05/21/17 Vit B Comp No.3/Folic/C/Biotin 1 each PO DAILY 05/21/17 [Leticia-Pacnho Rx Tablet] Allergies Allergy/AdvReac Type Severity Reaction Status Date / Time shellfish derived Allergy Verified 05/21/17 10:06 REVIEW OF SYSTEMS: CONSTITUTIONAL: generalized weakness, malaise, loss of appetite CARDIOVASCULAR: peripheral edema RESPIRATORY: poor respiratory effort GASTROINTESTINAL: hemorrhoids, melena, hematochezia, BRBPR incontinence MUSCULOSKELETAL: generalized deconditioning HEMATOLOGIC/IMMUNOLOGIC: easy bleeding, NEUROLOGIC: family reports mental status changes, bladder and bowel incontinence Physical Exam: GENERAL:Lethargic but responsive, A&O x 1 HEAD: Normal with no signs of trauma. EYES: sclera anicteric, conjunctiva clear. LUNGS: poor respiratory effort, unlabored resp on 2L NC, well healed midline incision over sternum. ABDOMEN: Soft, obese, not distended, with multiple healed scars. [place] insitu right groin- well healed incision. well healed scar on left groin. MUSCULOSKELETAL: Patient spontaneously moving upper extremities. Diffuse +3 pitting edema throughout. multiple scars dark color. UPPER EXTREMITIES: Left ring finger with dry gangrene throughout -from tip to MCP, diffuse edema, Left upper arm AVF with sutures insitu and palpable thrill. LOWER EXTREMITIES: right toes 1-5 dry gangrene extending onto foot with large ulceration over dorsum dark red to black in color. left LE with dry gangrene throughout toes with desquamation over dorsum of foot. PSYCH: patient responsive but unable to cooperate with exam Vital Signs Temperature 98 F 05/22/17 10:00 Pulse Rate 100 H 05/22/17 10:13 Respiratory Rate 12 05/22/17 10:00 Blood Pressure 87/35 05/22/17 10:13 O2 Sat by Pulse Oximetry (%) 100 05/21/17 21:00 Lab Results WBC 12.2 K/mm3 (4.0-10.0) H 05/22/17 05:40 RBC 3.47 M/mm3 (3.60-5.2) L 03/22/18 05:40 Hgb 9.5 GM/dL (10.7-15.3) L 05/22/17 05:40 Hct 29.3 % (32.4-45.2) L 05/22/17 05:40 MCV 84.3 fl (80-96) 05/22/17 05:40 MCHC 32.5 g/dl (32.0-36.0) 05/22/17 05:40 RDW 19.8 % (11.6-15.6) H 05/22/17 05:40 Plt Count 142 K/MM3 (134-434) D 05/22/17 05:40 Sodium 135 mmol/L (136-145) L 05/22/17 05:40 Potassium 4.1 mmol/L (3.5-5.1) 05/22/17 05:40 Chloride 94 mmol/L (98-107) L 05/22/17 05:40 Carbon Dioxide 19 mmol/L (21-32) L 05/22/17 05:40 Anion Gap 22 (8-16) H 05/22/17 05:40 BUN 41 mg/dL (7-18) H 05/22/17 05:40 Creatinine 4.3 mg/dL (0.55-1.02) H 05/22/17 05:40 Random Glucose 200 mg/dL (74-106) H 05/22/17 05:40 Calcium 8.6 mg/dL (8.5-10.1) 05/22/17 05:40 Blood Type O POSITIVE 05/21/17 13:58 Antibody Screen Negative 05/21/17 11:49 INR 1.94 (0.82-1.09) H 05/22/17 05:40 Problem List - Problems (1) Gangrene Assessment/Plan: Patient with gangrene of multiple extremities/digits in the setting of multiple co-morbidities. Currently being worked up for GI bleed and awaiting vascular studies and additional documentation from [facility] 1) follow up on [facility] documenation/ hospital course. 2) work up GI bleed. Transfuse PRN with plan for dialysis tomorrow if HD stable. 3) vascular studies to be reviewed 4) further management pending stabilization Code(s): I96 - GANGRENE, NOT ELSEWHERE CLASSIFIED Visit type - Case Type Case Type: ED Admission - Emergency Emergency Visit: Yes ED Registration Date: 05/21/17 Care time: The patient presented to the Emergency Department on the above date and was hospitalized for further evaluation of their emergent condition. - New patient This patient is new to me today: Yes Date on this admission: 05/22/17
--- NOTE | 2017-05-22 12:35 | PN ---
Progress Note, Physician History of Present Illness: Pt seen and examined at bedside. She is lethargic. Pt remains in the ICU. - Current Medication List Current Medications: Active Medications Albuterol/Ipratropium (Duoneb -) 1 amp NEB Q4HPO [facility] Last Admin: 05/22/17 10:10 Dose: 1 amp Calcitriol (Rocaltrol -) 0.25 mcg PO ASDIR RUEL Chlorhexidine Gluconate (Hibiclens For Decolonization -) 1 applic TP HS RUEL Last Admin: 05/21/17 21:30 Dose: 1 applic Gabapentin (Neurontin -) 100 mg PO HS RUEL Pantoprazole Sodium 80 mg/ (Sodium Chloride) 100 mls @ 10 mls/hr IVPB Q10H RUEL PRN Reason: 8 MG/HR Last Admin: 05/22/17 10:12 Dose: 10 mls/hr Norepinephrine Bitartrate 8, (000 mcg/ Dextrose) 500 mls @ 18.75 mls/hr IV TITR RUEL; 5 MCG/MIN PRN Reason: Protocol Last Admin: 05/22/17 10:13 Dose: 20 mcg/min, 75 mls/hr Midodrine (Proamatine -) 5 mg PO TID-MID [facility] Last Admin: 05/22/17 10:11 Dose: 5 mg Mometasone Furoate (Asmanex 220mcg -) 1 puff IH HS RUEL Last Admin: 05/21/17 21:30 Dose: 1 puff Multivit/Ca Carb/B Cmplx/FA/Prenat (Nephro-Pancho -) 1 tablet PO DAILY [facility] Last Admin: 05/22/17 10:11 Dose: 1 tablet Mupirocin (Bactroban Ointment (For Decolonization) -) 1 applic NS BID RUEL Stop: 05/26/17 21:59 Last Admin: 05/22/17 10:12 Dose: 1 applic Witch Peggy/Glycerin (Tucks Pads -) 1 pad TP Q4H [facility] Last Admin: 05/22/17 10:15 Dose: 1 pad - Objective Vital Signs: Vital Signs Temperature 98 F 05/22/17 10:00 Pulse Rate 92 H 05/22/17 12:00 Respiratory Rate 12 05/22/17 12:00 Blood Pressure 84/16 05/22/17 12:00 O2 Sat by Pulse Oximetry (%) 100 05/22/17 09:00 Constitutional: Yes: Calm Eyes: Yes: Conjunctiva Clear Cardiovascular: Yes: S1, S2 Respiratory: Yes: On Nasal O2 Gastrointestinal: Yes: Soft Genitourinary: Yes: Incontinence Musculoskeletal: Yes: Muscle Weakness Extremities: Yes: Other (gangrenous changes) Edema: Yes Integumentary: Yes: Other (gangrenous changes of toes) Neurological: Yes: Lethargy Labs: CBC, BMP 05/22/17 05:40 05/22/17 05:40 INR, PTT INR 1.94 (0.82-1.09) H 05/22/17 05:40 - ....Imaging Chest X-ray: Report Reviewed Problem List - Problems (1) ESRD (end stage renal disease) Code(s): N18.6 - END STAGE RENAL DISEASE (2) CAD (coronary artery disease) Code(s): I25.10 - ATHSCL HEART DISEASE OF [place] CORONARY ARTERY W/O ANG PCTRS (3) Hx of CABG Code(s): Z95.1 - PRESENCE OF AORTOCORONARY BYPASS GRAFT (4) Anemia Code(s): D64.9 - ANEMIA, UNSPECIFIED (5) GI bleed Code(s): K92.2 - GASTROINTESTINAL HEMORRHAGE, UNSPECIFIED Assessment/Plan Current Medications Generic Name Dose Route Start Last Admin Trade Name Freq PRN Reason Stop Dose Admin Albuterol/Ipratropium 1 amp 05/21/17 18:00 05/22/17 10:10 Duoneb - NEB 1 amp Q4HPO RUEL Administration Calcitriol 0.25 mcg 05/21/17 19:15 Rocaltrol - PO ASDIR RUEL Chlorhexidine Gluconate 1 applic 05/21/17 22:00 05/21/17 21:30 Hibiclens For Decolonization - TP 1 applic HS RUEL Administration Gabapentin 100 mg 05/22/17 22:00 Neurontin - PO HS RUEL Pantoprazole Sodium 80 mg/ 100 mls @ 10 mls/hr 05/21/17 18:00 05/22/17 10:12 Sodium Chloride IVPB 10 mls/hr Q10H RUEL Administration 8 MG/HR Norepinephrine Bitartrate 8, 500 mls @ 18.75 mls/hr 05/21/17 16:45 05/22/17 10:13 000 mcg/ Dextrose IV 20 mcg/min TITR RUEL 75 mls/hr Protocol Administration 5 MCG/MIN Midodrine 5 mg 05/21/17 23:15 05/22/17 10:11 Proamatine - PO 5 mg TID-MID RUEL Administration Mometasone Furoate 1 puff 05/21/17 22:00 05/21/17 21:30 Asmanex 220mcg - IH 1 puff HS RUEL Administration Multivit/Ca Carb/B Cmplx/FA/Prenat 1 tablet 05/22/17 10:00 05/22/17 10:11 Nephro-Pancho - PO 1 tablet DAILY RUEL Administration Mupirocin 1 applic 05/21/17 22:00 05/22/17 10:12 Bactroban Ointment (For Decolonization) - NS 05/26/17 21:59 1 applic BID RUEL Administration Witch Peggy/Glycerin 1 pad 05/21/17 19:15 05/22/17 10:15 Tucks Pads - TP 1 pad Q4H RUEL Administration Impression 1. ESRD 2. GI bleed likely from hemorrhoids 3. hemorrhoids 4. anemia 5. CAD 6. s/p CABG 7. DM 8. hypotension Plan - pt remains hypotensive - will asses for HD tomorrow, will hold off today. Discussed with ICU team - surgery and vascular eval for lower extremities - monitor hg - GI eval - cont pressors to a map of 65 - will follow Dr Plummer
--- NOTE | 2017-05-22 12:49 | CON.CARD ---
Consult Consult Specialty:: Cardiology Reason for Consultation:: GI bleeding, CAD - History of Present Illness History of Present Illness: 56F w/ DM, HTN, s/p CABG 03/2017 after NSTEMI at [facility] with Dr. Conrad Vazquez and Sherine, ESRD on Hemodialysis (M/W/F) and PVD, who presented from [facility] for rectal bleeding. She was severely anemic and hypotensive. SP multiple PRBC and on Nor-epi. Takes aspirin, but no other AC. coumadin was stopped on 05/11. The patient denies chest pain, shortness of breath. - History Source History Provided By: Medical Record - Past Medical History Cardio/Vascular: Yes: CAD (CABG, MV and TV repair-- porcine valve 03/07/17), HTN, Hyperlipdemia, [place] Renal/: Yes: Renal Failure, Hemodialysis Endocrine: Yes: Diabetes Mellitus - Past Surgical History Past Surgical History: Yes: AV Fistula/Graft, CABG, Valve Replacement - Alcohol/Substance Use Hx Alcohol Use: No - Smoking History Smoking history: Unknown if ever smoked Have you smoked in the past 12 months: No - Social History Usual Living Arrangement: Assisted ADL: Support Services History of Recent Travel: No Home Medications - Allergies Allergies/Adverse Reactions: Allergies Allergy/AdvReac Type Severity Reaction Status Date / Time shellfish derived Allergy Verified 05/21/17 10:06 - Home Medications Home Medications: Ambulatory Orders Aspirin [ASA -] 325 mg PO DAILY 05/21/17 Budesonide [Pulmicort Flexhaler] 90 mcg IH BID 05/21/17 Calcitriol [Rocaltrol -] 0.25 mcg PO ASDIR 05/21/17 Docusate Sodium 100 mg PO TID 05/21/17 Epoetin Keegan [Procrit] 10,000 unit SQ 05/21/17 Ipratropium/Albuterol Sulfate [Iprat-Albut 0.5-3(2.5) mg/3 ml] 3 ml IH Q4H 05/21 Midodrine HCl 5 mg PO ASDIR 05/21/17 Pantoprazole Sodium 40 mg PO DAILY 05/21/17 Sennosides [Senna Lax] 2 tab PO BID 05/21/17 Vit B Comp No.3/Folic/C/Biotin [Leticia-Pancho Rx Tablet] 1 each PO DAILY 05/21/17 Review of Systems - Review of Systems Constitutional: denies: Chills, Fever Eyes: reports: No Symptoms HENT: reports: No Symptoms Cardiovascular: reports: No Symptoms. denies: Chest Pain, Shortness of Breath Respiratory: reports: Exercise Intolerance. denies: Cough Gastrointestinal: reports: Rectal Bleeding. denies: Abdominal Pain, Vomiting Neurological: reports: No Symptoms Vital Signs: Vital Signs Temperature 98 F 05/22/17 10:00 Pulse Rate 92 H 05/22/17 12:00 Respiratory Rate 12 05/22/17 12:00 Blood Pressure 84/16 05/22/17 12:00 O2 Sat by Pulse Oximetry (%) 100 05/22/17 09:00 Constitutional: Yes: No Distress, Calm Eyes: Yes: Conjunctiva Clear, EOM Intact HENT: Yes: Atraumatic, Normocephalic Neck: Yes: Supple, Trachea Midline Respiratory: Yes: Regular, CTA Bilaterally Gastrointestinal: Yes: Normal Bowel Sounds, Soft Cardiovascular: Yes: Regular Rate and Rhythm. No: Pulse Irregular, Gallop, Rub JVD: No Carotid Bruit: No PMI: Non-Displaced Heart Sounds: Yes: S1, S2 Murmur: No: Systolic Murmur, Diastolic Murmur Edema: Yes Edema: LUE: 1+, RUE: 1+ - Other Data Labs, Other Data: CBC, BMP 05/22/17 05:40 05/22/17 05:40 INR, PTT INR 1.94 (0.82-1.09) H 05/22/17 05:40 Troponin, BNP 05/21/17 05/21/17 05/21/17 11:49 20:00 22:10 Troponin I 1.11 H* Cancelled 1.24 H* B-Natriuretic Peptide 708715.61 H 05/22/17 05:40 Troponin I 1.40 H* B-Natriuretic Peptide Troponin, BNP 05/21/17 05/21/17 05/21/17 11:49 20:00 22:10 Troponin I 1.11 H* Cancelled 1.24 H* B-Natriuretic Peptide 406496.61 H 05/22/17 05:40 Troponin I 1.40 H* B-Natriuretic Peptide NSR RAD old anteroseptal DC Imaging - Results Chest X-ray: Report Reviewed (Increse in intersitial markings a CV catheter is noted.) Problem List - Problems (1) Anemia Code(s): D64.9 - ANEMIA, UNSPECIFIED (2) CAD (coronary artery disease) Code(s): I25.10 - ATHSCL HEART DISEASE OF [place] CORONARY ARTERY W/O ANG PCTRS (3) GI bleed Code(s): K92.2 - GASTROINTESTINAL HEMORRHAGE, UNSPECIFIED Assessment/Plan She is post recent CABG MVR and TVR both bioprosthetic. She is off coumadin and remains iin NSR . 1. Elevated TP.Mildly elevated TP level is in the setting of renal failure and due to poor clearance. Not ACS. 2. CHF-HD for fluid removal. 3. Continue pressor support. 4. Echocardiogram. 5. Hold ASA and coumadin.
[2017-05-22] MEDS ORDERED: ACETAMINOPHEN 325 MG TABLET (FP) PO ONE (12:58)
[2017-05-22] MEDS ORDERED: PHENYLEPHRINE HCL 10 MG/1 ML SINGLE DOSE VIAL ONE ×3 (13:31→20:19)
[2017-05-22] MEDS: PHENYLEPHRINE HCL 20,000 MCG in SODIUM CHLORIDE 248 ML IVPB SCH ×2 (14:00→17:22)
--- NOTE | 2017-05-22 14:07 | PN ---
Teaching Attending Note Name of Resident: Casandra Parry ATTENDING PHYSICIAN STATEMENT I saw and evaluated the patient. I reviewed the resident's note and discussed the case with the resident. I agree with the resident's findings and plan as documented. SUBJECTIVE: Patient seen and examined in the ICU. Awake and alert. Reports chronic discomfort in her lower extremities. No CP or SOB. 20 meq NE for hemodynamic support. Remains hypotensive. Intake & Output 05/19/17 05/20/17 05/21/17 05/22/17 23:59 23:59 23:59 23:59 Intake Total 450 800 Balance 450 800 Weight 182 lb 6.4 oz 182 lb 14.4 oz Last Vital Signs Temp Pulse Resp BP Pulse Ox 98 F 92 H 12 84/16 100 05/22/17 10:00 05/22/17 12:00 05/22/17 12:00 05/22/17 12:00 05/22/17 09:00 Active Medications Acetaminophen (Tylenol -) 650 mg PO ONCE ONE Stop: 05/22/17 12:59 Albuterol/Ipratropium (Duoneb -) 1 amp NEB Q4HPO RUEL Last Admin: 05/22/17 10:10 Dose: 1 amp Calcitriol (Rocaltrol -) 0.25 mcg PO ASDIR RUEL Chlorhexidine Gluconate (Hibiclens For Decolonization -) 1 applic TP HS RUEL Last Admin: 05/21/17 21:30 Dose: 1 applic Gabapentin (Neurontin -) 100 mg PO HS RUEL Pantoprazole Sodium 80 mg/ (Sodium Chloride) 100 mls @ 10 mls/hr IVPB Q10H RUEL PRN Reason: 8 MG/HR Last Admin: 05/22/17 10:12 Dose: 10 mls/hr Norepinephrine Bitartrate 8, (000 mcg/ Dextrose) 500 mls @ 18.75 mls/hr IV TITR RUEL; 5 MCG/MIN PRN Reason: Protocol Last Admin: 05/22/17 10:13 Dose: 20 mcg/min, 75 mls/hr Phenylephrine HCl 20,000 mcg/ (Sodium Chloride) 250 mls @ 75 mls/hr IVPB ASDIR RUEL; 100 MCG/MIN PRN Reason: Protocol Midodrine (Proamatine -) 5 mg PO TID-MID RUEL Last Admin: 05/22/17 10:11 Dose: 5 mg Mometasone Furoate (Asmanex 220mcg -) 1 puff IH HS [facility] Last Admin: 05/21/17 21:30 Dose: 1 puff Multivit/Ca Carb/B Cmplx/FA/Prenat (Nephro-Pancho -) 1 tablet PO DAILY [facility] Last Admin: 05/22/17 10:11 Dose: 1 tablet Mupirocin (Bactroban Ointment (For Decolonization) -) 1 applic NS BID [facility] Stop: 05/26/17 21:59 Last Admin: 05/22/17 10:12 Dose: 1 applic Witch Peggy/Glycerin (Tucks Pads -) 1 pad TP Q4H [facility] Last Admin: 05/22/17 10:15 Dose: 1 pad Constitutional: Yes: Well Nourished, No Distress Eyes: Yes: Conjunctiva Clear, PERRL HENT: Yes: Atraumatic, Normocephalic Neck: Yes: Supple, Trachea Midline. No: Lymphadenopathy Cardiovascular: Yes: Regular Rate and Rhythm, S1, S2 Respiratory: Yes: Regular, CTA Bilaterally, On Nasal O2. No: Accessory Muscle Use Gastrointestinal: Yes: Normal Bowel Sounds, Soft, Abdomen, Obese ...Rectal Exam: Yes: Guaiac Positive Renal/: Yes: Anuria Breast(s): Yes: WNL Extremities: Yes: Cool, Delayed Capillary Refill, Other (dry gangrene R > L on bilater LE. warm. multiple areas on bilateral LE with various stages of wound healing.) Edema: Yes Edema: LUE: 2+, RUE: 2+, LLE: Trace, RLE: Trace Peripheral Pulses WNL: poor perfusion, weak pulses bilat LE Integumentary: Yes: Dry gangrene, Skin Tear, Venous Stasis Changes Neurological: Yes: Non-focal ...Motor Strength: WNL Labs: Laboratory Results - last 24 hr 05/21/17 05/21/17 05/21/17 11:49 11:49 13:58 WBC RBC Hgb Hct MCV MCH MCHC RDW Plt Count MPV Neutrophils % Lymphocytes % Monocytes % Eosinophils % Basophils % Hypochromia Platelet Estimate Platelet Comment Polychromasia Poikilocytosis Anisocytosis Microcytosis Macrocytosis Target Cells Tear Drop Cells Schistocytes PT with INR INR PTT (Actin FS) Sodium Potassium Chloride Carbon Dioxide Anion Gap BUN Creatinine Creat Clearance w eGFR POC Glucometer Random Glucose Lactic Acid 2.2 H* Calcium Phosphorus Magnesium Total Bilirubin Direct Bilirubin AST ALT Alkaline Phosphatase Troponin I B-Natriuretic Peptide 202523.61 H Total Protein Albumin Blood Type O POSITIVE Antibody Screen Negative Crossmatch See Detail 05/21/17 05/21/17 05/21/17 13:58 18:00 20:00 WBC RBC Hgb Hct MCV MCH MCHC RDW Plt Count MPV Neutrophils % Lymphocytes % Monocytes % Eosinophils % Basophils % Hypochromia Platelet Estimate Platelet Comment Polychromasia Poikilocytosis Anisocytosis Microcytosis Macrocytosis Target Cells Tear Drop Cells Schistocytes PT with INR 21.50 H INR 1.90 H PTT (Actin FS) 44.5 H Sodium Potassium Chloride Carbon Dioxide Anion Gap BUN Creatinine Creat Clearance w eGFR POC Glucometer Random Glucose Lactic Acid 1.3 Calcium Phosphorus Magnesium Total Bilirubin Direct Bilirubin AST ALT Alkaline Phosphatase Troponin I B-Natriuretic Peptide Total Protein Albumin Blood Type O POSITIVE Antibody Screen Crossmatch 05/21/17 05/21/17 05/21/17 20:00 20:00 20:00 WBC 10.8 H RBC 3.51 L D Hgb 9.7 L D Hct 29.6 L D MCV 84.5 MCH 27.5 MCHC 32.6 RDW 21.6 H Plt Count MPV 10.9 D Neutrophils % 84.0 H Lymphocytes % 7.2 L D Monocytes % 7.9 Eosinophils % 0.4 Basophils % 0.5 Hypochromia Platelet Estimate Slt decrease Platelet Comment Slt plt clumping Polychromasia Poikilocytosis Anisocytosis Microcytosis Macrocytosis Target Cells Tear Drop Cells Schistocytes PT with INR INR PTT (Actin FS) Sodium Cancelled Potassium Cancelled Chloride Cancelled Carbon Dioxide Cancelled Anion Gap Cancelled BUN Cancelled Creatinine Cancelled Creat Clearance w eGFR Cancelled POC Glucometer Random Glucose Cancelled Lactic Acid Calcium Cancelled Phosphorus Magnesium Total Bilirubin Cancelled Direct Bilirubin Cancelled AST Cancelled ALT Cancelled Alkaline Phosphatase Cancelled Troponin I Cancelled B-Natriuretic Peptide Total Protein Cancelled Albumin Cancelled Blood Type Antibody Screen Crossmatch 05/21/17 05/21/17 05/22/17 22:10 22:54 05:34 WBC RBC Hgb Hct MCV MCH MCHC RDW Plt Count MPV Neutrophils % Lymphocytes % Monocytes % Eosinophils % Basophils % Hypochromia Platelet Estimate Platelet Comment Polychromasia Poikilocytosis Anisocytosis Microcytosis Macrocytosis Target Cells Tear Drop Cells Schistocytes PT with INR INR PTT (Actin FS) Sodium 137 Potassium 4.1 Chloride 96 L Carbon Dioxide 22 Anion Gap 19 H BUN 38 H Creatinine 4.1 H Creat Clearance w eGFR 11.18 POC Glucometer 220.57040 233.74948 Random Glucose 156 H Lactic Acid Calcium 8.4 L Phosphorus Magnesium Total Bilirubin 3.4 H D Direct Bilirubin 2.1 H AST 53 H ALT 54 Alkaline Phosphatase 127 H Troponin I 1.24 H* B-Natriuretic Peptide Total Protein 6.3 L Albumin 2.5 L Blood Type Antibody Screen Crossmatch 05/22/17 05/22/17 05/22/17 05:40 05:40 05:40 WBC 12.2 H RBC 3.47 L Hgb 9.5 L Hct 29.3 L MCV 84.3 MCH 27.4 MCHC 32.5 RDW 19.8 H Plt Count 142 D MPV 9.4 D Neutrophils % 86.4 H Lymphocytes % 4.2 L D Monocytes % 8.8 Eosinophils % 0.1 Basophils % 0.5 Hypochromia 3+ Platelet Estimate Decreased Platelet Comment Polychromasia 2+ Poikilocytosis 1+ Anisocytosis 3+ Microcytosis 1+ Macrocytosis 2+ Target Cells 3+ Tear Drop Cells 1+ Schistocytes 1+ PT with INR 21.90 H INR 1.94 H PTT (Actin FS) 50.2 H Sodium 135 L Potassium 4.1 Chloride 94 L Carbon Dioxide 19 L Anion Gap 22 H BUN 41 H Creatinine 4.3 H Creat Clearance w eGFR 10.58 POC Glucometer Random Glucose 200 H Lactic Acid Calcium 8.6 Phosphorus 4.7 Magnesium 2.4 Total Bilirubin 3.4 H Direct Bilirubin AST 46 H ALT 48 Alkaline Phosphatase 118 H Troponin I B-Natriuretic Peptide Total Protein 6.1 L Albumin 2.5 L Blood Type Antibody Screen Crossmatch 05/22/17 05:40 WBC RBC Hgb Hct MCV MCH MCHC RDW Plt Count MPV Neutrophils % Lymphocytes % Monocytes % Eosinophils % Basophils % Hypochromia Platelet Estimate Platelet Comment Polychromasia Poikilocytosis Anisocytosis Microcytosis Macrocytosis Target Cells Tear Drop Cells Schistocytes PT with INR INR PTT (Actin FS) Sodium Potassium Chloride Carbon Dioxide Anion Gap BUN Creatinine Creat Clearance w eGFR POC Glucometer Random Glucose Lactic Acid Calcium Phosphorus Magnesium Total Bilirubin Direct Bilirubin AST ALT Alkaline Phosphatase Troponin I 1.40 H* B-Natriuretic Peptide Total Protein Albumin Blood Type Antibody Screen Crossmatch Problem List - Problems (1) Anemia Code(s): D64.9 - ANEMIA, UNSPECIFIED (2) CAD (coronary artery disease) Code(s): I25.10 - ATHSCL HEART DISEASE OF [place] CORONARY ARTERY W/O ANG PCTRS (3) ESRD (end stage renal disease) Code(s): N18.6 - END STAGE RENAL DISEASE (4) GI bleed Code(s): K92.2 - GASTROINTESTINAL HEMORRHAGE, UNSPECIFIED (5) Hx of CABG Code(s): Z95.1 - PRESENCE OF AORTOCORONARY BYPASS GRAFT Assessment/Plan Septic Shock ESRD on HD CAD NC Valvular heart disease s/p MVR/TVR GIB Acute blood loss anemia Bleeding hemorrhoids PLAN: PPI drip Normal transfusion thresholds O2 as needed GI evaluation Hold ASA /coumadin Midodrine Add Phenylephrine HD Per Renal if hemodynamics allow Vascular surgery evaluation ICU monitoring Dr Lozada Critical care time spent in reviewing chart, evaluating patient and formulating plan - 36 minutes.
--- NOTE | 2017-05-22 15:00 | PN ---
Physical Exam: SUBJECTIVE: Patient seen and examined in the ICU. Pt endorses discomfort in her susan LE. On pressors. Pt denies chest pain, sob, fever, chills. OBJECTIVE: Vital Signs Period Temp Pulse Resp BP Sys/Ceron Pulse Ox Last 24 Hr 97.3 F-98.0 F 72-106 9-19 51-102/14-52 96-100 GENERAL: awake, alert, lying in bed, well nourished, NAD LUNGS: CTAB. HEART: Regular rate and rhythm, normal S1 and S2 without murmur, rub or gallop. ABDOMEN: soft, obese, nontender, normoactive bowel sounds UPPER EXTREMITIES: Left AV fistula EXTREMITIES: susan gangrenous feet R>L, no edema Laboratory Results - last 24 hr 05/21/17 05/21/17 05/21/17 11:49 11:49 13:58 WBC RBC Hgb Hct MCV MCH MCHC RDW Plt Count MPV Neutrophils % Lymphocytes % Monocytes % Eosinophils % Basophils % Hypochromia Platelet Estimate Platelet Comment Polychromasia Poikilocytosis Anisocytosis Microcytosis Macrocytosis Target Cells Tear Drop Cells Schistocytes PT with INR INR PTT (Actin FS) Sodium Potassium Chloride Carbon Dioxide Anion Gap BUN Creatinine Creat Clearance w eGFR POC Glucometer Random Glucose Lactic Acid 2.2 H* Calcium Phosphorus Magnesium Total Bilirubin Direct Bilirubin AST ALT Alkaline Phosphatase Troponin I B-Natriuretic Peptide 016261.61 H Total Protein Albumin Blood Type O POSITIVE Antibody Screen Negative Crossmatch See Detail 05/21/17 05/21/17 05/21/17 13:58 18:00 20:00 WBC RBC Hgb Hct MCV MCH MCHC RDW Plt Count MPV Neutrophils % Lymphocytes % Monocytes % Eosinophils % Basophils % Hypochromia Platelet Estimate Platelet Comment Polychromasia Poikilocytosis Anisocytosis Microcytosis Macrocytosis Target Cells Tear Drop Cells Schistocytes PT with INR 21.50 H INR 1.90 H PTT (Actin FS) 44.5 H Sodium Potassium Chloride Carbon Dioxide Anion Gap BUN Creatinine Creat Clearance w eGFR POC Glucometer Random Glucose Lactic Acid 1.3 Calcium Phosphorus Magnesium Total Bilirubin Direct Bilirubin AST ALT Alkaline Phosphatase Troponin I B-Natriuretic Peptide Total Protein Albumin Blood Type O POSITIVE Antibody Screen Crossmatch 05/21/17 05/21/17 05/21/17 20:00 20:00 20:00 WBC 10.8 H RBC 3.51 L D Hgb 9.7 L D Hct 29.6 L D MCV 84.5 MCH 27.5 MCHC 32.6 RDW 21.6 H Plt Count MPV 10.9 D Neutrophils % 84.0 H Lymphocytes % 7.2 L D Monocytes % 7.9 Eosinophils % 0.4 Basophils % 0.5 Hypochromia Platelet Estimate Slt decrease Platelet Comment Slt plt clumping Polychromasia Poikilocytosis Anisocytosis Microcytosis Macrocytosis Target Cells Tear Drop Cells Schistocytes PT with INR INR PTT (Actin FS) Sodium Cancelled Potassium Cancelled Chloride Cancelled Carbon Dioxide Cancelled Anion Gap Cancelled BUN Cancelled Creatinine Cancelled Creat Clearance w eGFR Cancelled POC Glucometer Random Glucose Cancelled Lactic Acid Calcium Cancelled Phosphorus Magnesium Total Bilirubin Cancelled Direct Bilirubin Cancelled AST Cancelled ALT Cancelled Alkaline Phosphatase Cancelled Troponin I Cancelled B-Natriuretic Peptide Total Protein Cancelled Albumin Cancelled Blood Type Antibody Screen Crossmatch 05/21/17 05/21/17 05/22/17 22:10 22:54 05:34 WBC RBC Hgb Hct MCV MCH MCHC RDW Plt Count MPV Neutrophils % Lymphocytes % Monocytes % Eosinophils % Basophils % Hypochromia Platelet Estimate Platelet Comment Polychromasia Poikilocytosis Anisocytosis Microcytosis Macrocytosis Target Cells Tear Drop Cells Schistocytes PT with INR INR PTT (Actin FS) Sodium 137 Potassium 4.1 Chloride 96 L Carbon Dioxide 22 Anion Gap 19 H BUN 38 H Creatinine 4.1 H Creat Clearance w eGFR 11.18 POC Glucometer 220.78003 233.99307 Random Glucose 156 H Lactic Acid Calcium 8.4 L Phosphorus Magnesium Total Bilirubin 3.4 H D Direct Bilirubin 2.1 H AST 53 H ALT 54 Alkaline Phosphatase 127 H Troponin I 1.24 H* B-Natriuretic Peptide Total Protein 6.3 L Albumin 2.5 L Blood Type Antibody Screen Crossmatch 05/22/17 05/22/17 05/22/17 05:40 05:40 05:40 WBC 12.2 H RBC 3.47 L Hgb 9.5 L Hct 29.3 L MCV 84.3 MCH 27.4 MCHC 32.5 RDW 19.8 H Plt Count 142 D MPV 9.4 D Neutrophils % 86.4 H Lymphocytes % 4.2 L D Monocytes % 8.8 Eosinophils % 0.1 Basophils % 0.5 Hypochromia 3+ Platelet Estimate Decreased Platelet Comment Polychromasia 2+ Poikilocytosis 1+ Anisocytosis 3+ Microcytosis 1+ Macrocytosis 2+ Target Cells 3+ Tear Drop Cells 1+ Schistocytes 1+ PT with INR 21.90 H INR 1.94 H PTT (Actin FS) 50.2 H Sodium 135 L Potassium 4.1 Chloride 94 L Carbon Dioxide 19 L Anion Gap 22 H BUN 41 H Creatinine 4.3 H Creat Clearance w eGFR 10.58 POC Glucometer Random Glucose 200 H Lactic Acid Calcium 8.6 Phosphorus 4.7 Magnesium 2.4 Total Bilirubin 3.4 H Direct Bilirubin AST 46 H ALT 48 Alkaline Phosphatase 118 H Troponin I B-Natriuretic Peptide Total Protein 6.1 L Albumin 2.5 L Blood Type Antibody Screen Crossmatch 05/22/17 05:40 WBC RBC Hgb Hct MCV MCH MCHC RDW Plt Count MPV Neutrophils % Lymphocytes % Monocytes % Eosinophils % Basophils % Hypochromia Platelet Estimate Platelet Comment Polychromasia Poikilocytosis Anisocytosis Microcytosis Macrocytosis Target Cells Tear Drop Cells Schistocytes PT with INR INR PTT (Actin FS) Sodium Potassium Chloride Carbon Dioxide Anion Gap BUN Creatinine Creat Clearance w eGFR POC Glucometer Random Glucose Lactic Acid Calcium Phosphorus Magnesium Total Bilirubin Direct Bilirubin AST ALT Alkaline Phosphatase Troponin I 1.40 H* B-Natriuretic Peptide Total Protein Albumin Blood Type Antibody Screen Crossmatch Active Medications Generic Name Dose Route Start Last Admin Trade Name Freq PRN Reason Stop Dose Admin Acetaminophen 650 mg 05/22/17 12:58 Tylenol - PO 05/22/17 12:59 ONCE ONE Albuterol/Ipratropium 1 amp 05/21/17 18:00 05/22/17 10:10 Duoneb - NEB 1 amp Q4HPO RUEL Administration Calcitriol 0.25 mcg 05/21/17 19:15 Rocaltrol - PO ASDIR RUEL Chlorhexidine Gluconate 1 applic 05/21/17 22:00 05/21/17 21:30 Hibiclens For Decolonization - TP 1 applic HS RUEL Administration Gabapentin 100 mg 05/22/17 22:00 Neurontin - PO HS RUEL Pantoprazole Sodium 80 mg/ 100 mls @ 10 mls/hr 05/21/17 18:00 05/22/17 10:12 Sodium Chloride IVPB 10 mls/hr Q10H RUEL Administration 8 MG/HR Norepinephrine Bitartrate 8, 500 mls @ 18.75 mls/hr 05/21/17 16:45 05/22/17 10:13 000 mcg/ Dextrose IV 20 mcg/min TITR RUEL 75 mls/hr Protocol Administration 5 MCG/MIN Phenylephrine HCl 20,000 mcg/ 250 mls @ 75 mls/hr 05/22/17 13:00 Sodium Chloride IVPB ASDIR RUEL Protocol 100 MCG/MIN Midodrine 5 mg 05/21/17 23:15 05/22/17 10:11 Proamatine - PO 5 mg TID-MID RUEL Administration Mometasone Furoate 1 puff 05/21/17 22:00 05/21/17 21:30 Asmanex 220mcg - IH 1 puff HS RUEL Administration Multivit/Ca Carb/B Cmplx/FA/Prenat 1 tablet 05/22/17 10:00 05/22/17 10:11 Nephro-Pancho - PO 1 tablet DAILY RUEL Administration Mupirocin 1 applic 05/21/17 22:00 05/22/17 10:12 Bactroban Ointment (For Decolonization) - NS 05/26/17 21:59 1 applic BID RUEL Administration Witch Peggy/Glycerin 1 pad 05/21/17 19:15 05/22/17 10:15 Tucks Pads - TP 1 pad Q4H RUEL Administration IMAGIN05/21/17 CXR -> pulmonary vascular congestion, small pleural effusions, bibasilar atelectasis 05/21/17 CXR 2pm -> Left subclavian central venous cath with tip terminating over SVC. No PTX. 05/21/17 susan LE arterial Duplex -> pt terminated exam early, so Left popliteal/ posterior tibialis and Right posterior tibialis not assessed. Flow in Left common femoral and Left SFA suggestive of significant stenosis. 05/22/17 CXR -> interval worsening of pulmonary venous congestion with suggestion of Left pleural effusion 05/22/17 Echo -> Left ventricle normal in size, systolic function moderately reduced. Moderate global hypokinesis of Left ventricle. Right ventricle mildly dilated, systolic function moderately reduced. Severe TR. 05/22/17 Ab US -> multiple gallstones sans sono evidence of acute cholecystitis. Fatty infiltration of liver vs hepatocellular disease noted. ASSESSMENT/PLAN: 56F with PMH of DM, htn, IN (s/p CABG 03/2017), ESRD (on HD MWF), hemorrhoids, presents with BRBPR, admitted for GI bleed. # septic shock 2/2 dry gangrenous susan feet - on pressors: norepinephrine and phenylepherine - f/u blood cultures - ID (Dr. Shen) recs appreciated: hold antibiotics for now - O2 prn, duonebs - Vascular Consult # lower GI bleed / acute blood loss anemia - GI (Dr. Iniguez) recs appreciated: may have ice chips - s/p 2U PRBCs on 05/21/17, receiving one more unit PRBCs today - hgb responded appropriately yesterday to PRBCs - continue IV Protonix # hypotension - continue home med of midodrine - on pressors # ESRD - Nephrology (Dr. Plummer) recs appreciated: will assess for HD tomorrow # elevated troponins - likely 2/2 clearance failure related to ESRD - Cardiology (Dr. Recinos) recs appreciated: hold ASA and Coumadin - continue to trend # FEN - Fluids: s/p 3U PRBCs - Electrolytes: mild hyponatremia noted, continue to monitor - Nutrition: npo # Prophylaxis - DVT ppx: mechanical SCDs held 2/2 susan gangrenous feet. chemoprophylaxis held 2/2 GI bleed. - GI ppx with Protonix IV Visit type - Emergency Visit Emergency Visit: Yes ED Registration Date: 05/21/17 Care time: The patient presented to the Emergency Department on the above date and was hospitalized for further evaluation of their emergent condition. - New Patient This patient is new to me today: Yes Date on this admission: 05/22/17 - Critical Care Critical Care patient: Yes Total Critical Care Time (in minutes): 45 Critical Care Statement: The care of this patient involved high complexity decision making to prevent further life threatening deterioration of the patient 's condition and/or to evaluate & treat vital organ system(s) failure or risk of failure.
[2017-05-22] MEDS ORDERED: NOREPINEPHRINE BITARTRATE 4 MG/4 ML ML IV ONE ×3 (17:09→22:26)
--- NOTE | 2017-05-22 18:15 | PN ---
Progress Note (short form) - Note Progress Note: MD Dsouza and MD Downs spoke with pt's sister, son, and son's about pt's condition. Family members expressed understanding of condition. Goals of care were discussed, and they all stated that for now, they want everything to be done for the pt including resuscitation and intubation. Pt's son came with further documentation describing pt's recent hospitalization at [facility] with details regarding vascular procedures. The documentation was copied and placed in pt's chart. Of note, after pt underwent CABG, she suffered a cardiac arrest and was successfully resuscitated and ventilated. A repeat catheterization was performed which showed patency of grafts. Family again emphasized that pt's mental status deteriorated in last week at [facility]. They stated that the doctors at [facility] believed it was 2/2 pain medications, but pt's mental status has not improved since discontinuation of the pain meds.
[2017-05-22] MEDS ORDERED: DOBUTAMINE 250 MG/D5W - 250,000 MCG/250 ML INFUS.BAG ONE (20:20)
[2017-05-22] MEDS: GABAPENTIN 100 MG CAPSULE (FP) PO SCH (21:31)
[2017-05-22] MEDS: MOMETASONE FUROATE 220 MCG/IH INHALER IH SCH (21:33)
[2017-05-22] MEDS: CHLORHEXIDINE GLUCONATE 4% CLEANSER FOR DECOLONIZATION TP SCH (21:34)
[2017-05-22] MEDS ORDERED: HEMOQUE TEST 1 EACH EACH ONE (21:39)
[2017-05-22] MEDS: INSULIN SLIDING SCALE (NOVOLOG) 1 VIAL SQ SCH (21:43)
[2017-05-22] MEDS ORDERED: VASOPRESSIN 20 UNITS/ML VIAL IV ONE (22:20)
[2017-05-22] MEDS: VASOPRESSIN 50 UNITS in SODIUM CHLORIDE 97.5 ML IVPB SCH (22:30)
[2017-05-23] MEDS ORDERED: PHENYLEPHRINE HCL 10 MG/1 ML SINGLE DOSE VIAL ONE ×6 (00:02→21:41)
[2017-05-23] MEDS ORDERED: SODIUM BICARBONATE 8.4% 50 MEQ/50 ML VIAL IV ONE (03:12)
[2017-05-23] MEDS ORDERED: PIPERACIL/TAZOB 3.375 GM 3.375 GM/50 ML PREMIX IVPB ONE (03:14)
[2017-05-23] MEDS ORDERED: VANCOMYCIN 1 GRAM (PRE-DOCKED) 1,000 MG/250 ML BAG IVPB ONE (03:15)
[2017-05-23] MEDS ORDERED: SODIUM BICARBONATE 8.4% 50 MEQ/50 ML VIAL ONE ×2 (03:16→08:30)
[2017-05-23] MEDS: WITCH HAZEL 50% (TUCKS) 40 PAD/JAR PAD TP SCH ×6 (03:33→21:53)
[2017-05-23] MEDS: PANTOPRAZOLE SODIUM 80 MG in SODIUM CHLORIDE 100 ML IVPB SCH ×3 (03:33→21:50)
[2017-05-23] MEDS ORDERED: NOREPINEPHRINE BITARTRATE 4 MG/4 ML ML IV ONE ×3 (04:30→22:09)
[2017-05-23 07:17] LABS: HEMATOCRIT 32.6 % (32.4-45.2); HEMOGLOBIN 10.4 GM/dL (10.7-15.3); MCH 27.4 pg (25.7-33.7); MCHC 31.9 g/dl (32.0-36.0); MEAN CELL VOLUME 85.9 fl (80-96); MEAN PLT VOLUME 9.4 fl (7.5-11.1); PLATELET COUNT 98 K/MM3 (134-434); RBC 3.79 M/mm3 (3.60-5.2)
[2017-05-23 07:20] LABS: ALBUMIN 2.1 g/dl (3.4-5.0); ANION GAP 24 (8-16); BLOOD UREA NITROGEN 45 mg/dL (7-18); CALCIUM 7.6 mg/dL (8.5-10.1); CHLORIDE 95 mmol/L (98-107); CO2 15 mmol/L (21-32); GLUCOSE,RANDOM 210 mg/dL (74-106); MAGNESIUM 2.3 mg/dL (1.8-2.4); POTASSIUM 4.2 mmol/L (3.5-5.1); SODIUM 134 mmol/L (136-145)
[2017-05-23 07:22] LABS: INR 2.84 (0.82-1.09); PROTHROMBIN TIME (PATIENT) 32.1 SEC (9.98-11.88); WHITE BLOOD COUNT 11.8 K/mm3 (4.0-10.0)
[2017-05-23 07:24] LABS: ALK PHOS 110 U/L (45-117); BILIRUBIN,TOTAL 3.1 mg/dL (0.2-1.0); CREATININE 4.8 mg/dL (0.55-1.02); PHOSPHOROUS 5.1 mg/dL (2.5-4.9); SGOT/AST 44 U/L (15-37); SGPT/ALT 29 U/L (12-78); TOT PROT 6.1 g/dl (6.4-8.2)
[2017-05-23 07:25] LABS: ACTIVATED PTT 53.2 SECONDS (26.9-34.4)
--- NOTE | 2017-05-23 07:32 | PN ---
Progress Note, Physician Chief Complaint: ID Multiorgan failure Moribund in triple pressors now - Current Medication List Current Medications: Active Medications Albuterol/Ipratropium (Duoneb -) 1 amp NEB Q4HPO [facility] Last Admin: 05/22/17 21:06 Dose: 1 amp Calcitriol (Rocaltrol -) 0.25 mcg PO ASDIR RUEL Chlorhexidine Gluconate (Hibiclens For Decolonization -) 1 applic TP HS [facility] Last Admin: 05/22/17 21:34 Dose: 1 applic Gabapentin (Neurontin -) 100 mg PO HS [facility] Last Admin: 05/22/17 21:31 Dose: 100 mg Pantoprazole Sodium 80 mg/ (Sodium Chloride) 100 mls @ 10 mls/hr IVPB Q10H RUEL PRN Reason: 8 MG/HR Last Admin: 05/23/17 03:33 Dose: 10 mls/hr Norepinephrine Bitartrate 8, (000 mcg/ Dextrose) 500 mls @ 18.75 mls/hr IV TITR RUEL; 5 MCG/MIN PRN Reason: Protocol Last Titration: 05/23/17 04:54 Dose: 40 mcg/min, 150 mls/hr Phenylephrine HCl 20,000 mcg/ (Sodium Chloride) 250 mls @ 75 mls/hr IVPB ASDIR RUEL; 100 MCG/MIN PRN Reason: Protocol Last Titration: 05/23/17 06:00 Dose: 200 mcg/min, 150 mls/hr Vasopressin 50 units/ Sodium (Chloride) 100 mls @ 4 mls/hr IVPB ASDIR RUEL; 2 UNITS/HR PRN Reason: Protocol Last Titration: 05/23/17 06:53 Dose: 6 units/hr, 12 mls/hr Insulin Aspart (Novolog Vial Sliding Scale -) 1 vial SQ ACHS RUEL PRN Reason: Protocol Last Admin: 05/22/17 21:43 Dose: 8 units Midodrine (Proamatine -) 5 mg PO TID-MID [facility] Last Admin: 05/22/17 17:25 Dose: 5 mg Mometasone Furoate (Asmanex 220mcg -) 1 puff IH HS [facility] Last Admin: 05/22/17 21:33 Dose: 1 puff Multivit/Ca Carb/B Cmplx/FA/Prenat (Nephro-Pancho -) 1 tablet PO DAILY [facility] Last Admin: 05/22/17 10:11 Dose: 1 tablet Mupirocin (Bactroban Ointment (For Decolonization) -) 1 applic NS BID [facility] Stop: 05/26/17 21:59 Last Admin: 05/22/17 21:31 Dose: 1 applic Witch Peggy/Glycerin (Tucks Pads -) 1 pad TP Q4H [facility] Last Admin: 05/23/17 03:33 Dose: 1 pad - Objective Vital Signs: Vital Signs Temperature 98.8 F 05/23/17 05:00 Pulse Rate 108 H 05/23/17 06:53 Respiratory Rate 24 05/23/17 06:00 Blood Pressure 48/24 05/23/17 06:53 O2 Sat by Pulse Oximetry (%) 100 05/22/17 22:50 Gastrointestinal: Yes: Soft, Distention Extremities: Yes: Other (Gangrene) Labs: CBC, BMP 05/23/17 05:55 INR, PTT INR 1.94 (0.82-1.09) H 05/22/17 05:40 Problem List - Problems (1) Sepsis Code(s): A41.9 - SEPSIS, UNSPECIFIED ORGANISM (2) Anemia Code(s): D64.9 - ANEMIA, UNSPECIFIED (3) ESRD (end stage renal disease) Code(s): N18.6 - END STAGE RENAL DISEASE (4) GI bleed Code(s): K92.2 - GASTROINTESTINAL HEMORRHAGE, UNSPECIFIED Assessment/Plan Microbiology 05/21/17 20:00 Blood - Peripheral Venous Blood Culture - Preliminary NO GROWTH OBTAINED AFTER 24 HOURS, INCUBATION TO CONTINUE FOR 4 DAYS. 05/21/17 19:56 Blood - Peripheral Venous Blood Culture - Preliminary NO GROWTH OBTAINED AFTER 24 HOURS, INCUBATION TO CONTINUE FOR 4 DAYS. Laboratory Tests 05/22/17 05/22/17 05/22/17 05:40 05:40 21:10 WBC Hgb Hct Plt Count 142 D Total Bilirubin 3.4 H AST 46 H ALT 48 Alkaline Phosphatase 118 H Troponin I 2.02 H* 05/23/17 05:55 WBC 11.8 H Hgb 10.4 L Hct 32.6 Plt Count Pending Total Bilirubin AST ALT Alkaline Phosphatase Troponin I Assessment Multiorgan failure Cardiogenic vs sepsis related ? bowel ischemia ESRD GI bleeding Heart valve replacement Plan Reculture Empriic therapy Meroepenem and gent Prognosis poor Discussed with residents Hermelinda TELLES
[2017-05-23] MEDS ORDERED: GENTAMICIN 80 MG PREMIXED IVPB 80 MG/100 ML BAG IVPB ONE (08:00)
[2017-05-23] MEDS: MEROPENEM 500 MG in DEXTROSE 5%-WATER - 100 ML IVPB SCH ×2 (08:05→22:20)
[2017-05-23 08:07] LABS: ARTERIAL BLOOD GAS BASE EXCESS -14.7 meq/l (-2-2); ARTERIAL BLOOD GAS PCO2 29.2 mmHg (35-45); ARTERIAL BLOOD GAS PO2 84.2 mmHg (80-100); ARTERIAL BLOOD GAS pH 7.22 (7.35-7.45)
[2017-05-23 08:10] LABS: ALLENS TEST POSITIVE
[2017-05-23] MEDS ORDERED: SODIUM BICARBONATE 8.4% 50 MEQ/50 ML DISP.SYRIN IVPUSH ONE (08:40)
[2017-05-23] MEDS: PHENYLEPHRINE HCL 20,000 MCG in SODIUM CHLORIDE 248 ML IVPB SCH ×2 (08:52→12:46)
[2017-05-23] MEDS ORDERED: VANCOMYCIN 1,500 MG in DEXTROSE 5%-WATER - 500 ML IVPB ONE (09:00)
[2017-05-23] MEDS ORDERED: SODIUM CHLORIDE 1,000 ML IV STA (09:02)
[2017-05-23] MEDS ORDERED: MIDAZOLAM HCL 5 MG/1 ML Single Dose Vial ONE (09:04)
[2017-05-23] MEDS ORDERED: HYDROCORTISONE SOD SUCCINATE 2 ML ONE (09:07)
[2017-05-23] MEDS ORDERED: HYDROCORTISONE SOD SUCCINATE 100 MG/2 ML VIAL IVPUSH ONE (10:00)
[2017-05-23] MEDS ORDERED: MEROPENEM 500 MG VIAL (RESTRICTED TO ID) IVPB SCH (10:00)
[2017-05-23] MEDS: MUPIROCIN 2% TOPICAL OINTMENT FOR DECOLONIZATION NS SCH ×2 (10:22→21:54)
[2017-05-23] MEDS: CALCITRIOL 0.25 MCG CAPSULE (FP) PO SCH (11:53)
[2017-05-23] MEDS: VITAMIN B COMP W-C 1 EA TABLET PO SCH (11:53)
[2017-05-23] MEDS: MIDODRINE HCL 5 MG TABLET PO SCH ×3 (11:53→18:43)
--- NOTE | 2017-05-23 12:10 | CONSULT ---
Consult Consult Specialty:: Hematology - History of Present Illness History of Present Illness: 56 year old female with pmhx of ESRD on HD, CAD s/p cabg, DM, and HTN, chronic LE gangrenewho was sent to the ER for rectal bleeding on 05/21. Her hospital course remained critical: Was admitted to ICU with shock ( ?etiology ) On broad spectrum antibiotics. Pt is s/p 3U of PRBCs, hypotensive requiring 3 pressors, s/p intubation today for resp distress. Has Bilateral gangrenous feet. Has Elevated coags. Hematology consulted for the elevated PT/PTT. Patient seen and examined . d/w Resident,family, /. - History Source History Provided By: Family Member, Medical Record - Past Medical History Cardio/Vascular: Yes: CAD (CABG, MV and TV repair-- porcine valve 03/07/17), HTN, Hyperlipdemia, [place] Renal/: Yes: Renal Failure, Hemodialysis Endocrine: Yes: Diabetes Mellitus - Past Surgical History Past Surgical History: Yes: AV Fistula/Graft, CABG, Valve Replacement - Alcohol/Substance Use Hx Alcohol Use: No - Smoking History Smoking history: Unknown if ever smoked Have you smoked in the past 12 months: No - Social History Usual Living Arrangement: Halfway ADL: Support Services History of Recent Travel: No Home Medications - Allergies Allergies/Adverse Reactions: Allergies Allergy/AdvReac Type Severity Reaction Status Date / Time shellfish derived Allergy Verified 05/21/17 10:06 - Home Medications Home Medications: Ambulatory Orders Aspirin [ASA -] 325 mg PO DAILY 05/21/17 Budesonide [Pulmicort Flexhaler] 90 mcg IH BID 05/21/17 Calcitriol [Rocaltrol -] 0.25 mcg PO ASDIR 05/21/17 Docusate Sodium 100 mg PO TID 05/21/17 Epoetin Keegan [Procrit] 10,000 unit SQ 05/21/17 Ipratropium/Albuterol Sulfate [Iprat-Albut 0.5-3(2.5) mg/3 ml] 3 ml IH Q4H 05/21 Midodrine HCl 5 mg PO ASDIR 05/21/17 Pantoprazole Sodium 40 mg PO DAILY 05/21/17 Sennosides [Senna Lax] 2 tab PO BID 05/21/17 Vit B Comp No.3/Folic/C/Biotin [Leticia-Pancho Rx Tablet] 1 each PO DAILY 05/21/17 Review of Systems Unable to obtain ROS, reason: yes, unable to obtain Findings/Remarks: Pt intubated./on pressors - Review of Systems Constitutional: reports: Other Physical Exam Vital Signs: Vital Signs Temperature 98.8 F 05/23/17 05:00 Pulse Rate 107 H 05/23/17 08:52 Respiratory Rate 20 05/23/17 09:15 Blood Pressure 47/39 05/23/17 08:52 O2 Sat by Pulse Oximetry (%) 96 05/23/17 09:00 Constitutional: Yes: Other (intubated/mechanically vented .) HENT: Yes: Other (noted bleeding at the ETT site) Cardiovascular: Yes: Tachycardia Respiratory: Yes: Mechanically Ventilated Gastrointestinal: Yes: Abdomen, Obese Extremities: Yes: Other (Bilateral gangrenous lower extremity) Labs: CBC, BMP 05/23/17 05:55 05/23/17 05:55 Imaging - Results Ultrasound: Report Reviewed Problem List - Problems (1) Coagulopathy Code(s): D68.9 - COAGULATION DEFECT, UNSPECIFIED (2) Gangrene Code(s): I96 - GANGRENE, NOT ELSEWHERE CLASSIFIED (3) GI bleed Code(s): K92.2 - GASTROINTESTINAL HEMORRHAGE, UNSPECIFIED (4) Hx of CABG Code(s): Z95.1 - PRESENCE OF AORTOCORONARY BYPASS GRAFT Assessment/Plan Coagulopathy: Underlying etiology ( Shock ?etiology ?Septic ) Likely in DIC. await Fibrinogen, LDH, retic Give FFP/ddAVP/Vit K CBC/PT/PTT q12h. depending on fibrinogen ,might need Cryo. Guarded prognosis rest per ICU team
[2017-05-23] MEDS: INSULIN SLIDING SCALE (NOVOLOG) 1 VIAL SQ SCH ×4 (12:22→22:50)
--- NOTE | 2017-05-23 12:29 | PN ---
Teaching Attending Note Name of Resident: Den Dsouza ATTENDING PHYSICIAN STATEMENT I saw and evaluated the patient. I reviewed the resident's note and discussed the case with the resident. I agree with the resident's findings and plan as documented. SUBJECTIVE: Patient seen and examined in the ICU. In extremis this AM. Hypotensive, tachypneic, and lethargic. Family at the bedside. GOC discussed and they request all interventions be provided. Subsequently intubated with Glidescope, 7.5 ETT secured at 22. Left femoral A line inserted under direct US guidance. Intake & Output 05/20/17 05/21/17 05/22/17 05/23/17 23:59 23:59 23:59 23:59 Intake Total 450 2120 3034 Balance 450 2120 3034 Weight 182 lb 6.4 oz 182 lb 14.4 oz 182 lb 14.4 oz Last Vital Signs Temp Pulse Resp BP Pulse Ox 98.8 F 107 H 20 47/39 96 05/23/17 05:00 05/23/17 08:52 05/23/17 12:14 05/23/17 08:52 05/23/17 09:00 Active Medications Albuterol/Ipratropium (Duoneb -) 1 amp NEB Q4HPO RUEL Last Admin: 05/22/17 21:06 Dose: 1 amp Calcitriol (Rocaltrol -) 0.25 mcg PO DAILY RUEL Last Admin: 05/23/17 11:53 Dose: Not Given Chlorhexidine Gluconate (Hibiclens For Decolonization -) 1 applic TP HS [facility] Last Admin: 05/22/17 21:34 Dose: 1 applic Gabapentin (Neurontin -) 100 mg PO HS RUEL Last Admin: 05/22/17 21:31 Dose: 100 mg Hydrocortisone Sodium Succinate (Solu-Cortef -) 100 mg IVPB Q8H RUEL Pantoprazole Sodium 80 mg/ (Sodium Chloride) 100 mls @ 10 mls/hr IVPB Q10H RUEL PRN Reason: 8 MG/HR Last Admin: 05/23/17 10:23 Dose: 10 mls/hr Norepinephrine Bitartrate 8, (000 mcg/ Dextrose) 500 mls @ 18.75 mls/hr IV TITR RUEL; 5 MCG/MIN PRN Reason: Protocol Last Titration: 05/23/17 04:54 Dose: 40 mcg/min, 150 mls/hr Phenylephrine HCl 20,000 mcg/ (Sodium Chloride) 250 mls @ 75 mls/hr IVPB ASDIR RUEL; 100 MCG/MIN PRN Reason: Protocol Last Admin: 05/23/17 08:52 Dose: 200 mcg/min, 150 mls/hr Vasopressin 50 units/ Sodium (Chloride) 100 mls @ 4 mls/hr IVPB ASDIR RUEL; 2 UNITS/HR PRN Reason: Protocol Last Titration: 05/23/17 06:53 Dose: 6 units/hr, 12 mls/hr Meropenem 500 mg/ Dextrose 100 mls @ 200 mls/hr IVPB BID RUEL Last Admin: 05/23/17 08:05 Dose: 200 mls/hr Midazolam HCl 100 mg/ Sodium (Chloride) 100 mls @ 1 mls/hr IVPB TITR RUEL; 1 MG/ HR PRN Reason: Protocol Insulin Aspart (Novolog Vial Sliding Scale -) 1 vial SQ ACHS RUEL PRN Reason: Protocol Last Admin: 05/23/17 12:22 Dose: 4 units Midodrine (Proamatine -) 5 mg PO TID-MID [facility] Last Admin: 05/23/17 11:53 Dose: Not Given Mometasone Furoate (Asmanex 220mcg -) 1 puff IH HS [facility] Last Admin: 05/22/17 21:33 Dose: 1 puff Multivit/Ca Carb/B Cmplx/FA/Prenat (Nephro-Pancho -) 1 tablet PO DAILY [facility] Last Admin: 05/23/17 11:53 Dose: Not Given Mupirocin (Bactroban Ointment (For Decolonization) -) 1 applic NS BID [facility] Stop: 05/26/17 21:59 Last Admin: 05/23/17 10:22 Dose: 1 applic Witch Peggy/Glycerin (Tucks Pads -) 1 pad TP Q4H [facility] Last Admin: 05/23/17 11:55 Dose: 1 pad Constitutional: Yes: Severe distress Eyes: Yes: Conjunctiva Clear, PERRL HENT: Yes: Atraumatic, Normocephalic Neck: Yes: Supple, Trachea Midline. No: Lymphadenopathy Cardiovascular: Yes: Regular Rate and Rhythm, S1, S2 Respiratory: Yes: Regular, CTA Bilaterally, On Nasal O2. No: Accessory Muscle Use Gastrointestinal: Yes: Normal Bowel Sounds, Soft, Abdomen, Obese ...Rectal Exam: Yes: Guaiac Positive Renal/: Yes: Anuria Breast(s): Yes: WNL Extremities: Yes: Cool, Delayed Capillary Refill, Other (dry gangrene R > L on bilater LE. warm. multiple areas on bilateral LE with various stages of wound healing.) Edema: Yes Edema: LUE: 2+, RUE: 2+, LLE: Trace, RLE: Trace Peripheral Pulses WNL: poor perfusion, weak pulses bilat LE Integumentary: Yes: Dry gangrene, Skin Tear, Venous Stasis Changes Neurological: Yes: Poorly responsive ...Motor Strength: WNL Labs: Laboratory Results - last 24 hr 05/22/17 05/22/17 05/22/17 15:30 17:04 21:10 WBC RBC Hgb Hct MCV MCH MCHC RDW Plt Count MPV Manual Slide Review Platelet Comment PT with INR INR PTT (Actin FS) Puncture Site ABG pH ABG pCO2 at Pt Temp ABG pO2 at Pt Temp ABG HCO3 ABG O2 Sat (Measured) ABG O2 Content ABG Base Excess Dilip Test O2 Delivery Device Oxygen Flow Rate Mechanical Rate PEEP Sodium Potassium Chloride Carbon Dioxide Anion Gap BUN Creatinine Creat Clearance w eGFR POC Glucometer [phone] Random Glucose Lactic Acid Calcium Phosphorus Magnesium Total Bilirubin AST ALT Alkaline Phosphatase Troponin I 1.80 H* 2.02 H* Total Protein Albumin 05/22/17 05/23/17 05/23/17 21:42 05:55 05:55 WBC 11.8 H RBC 3.79 Hgb 10.4 L Hct 32.6 MCV 85.9 MCH 27.4 MCHC 31.9 L RDW 19.0 H Plt Count 98 L D MPV 9.4 Manual Slide Review No Result Required. Platelet Comment Ready To Wear Department Manager PT with INR 32.10 H INR 2.84 H D PTT (Actin FS) 53.2 H Puncture Site ABG pH ABG pCO2 at Pt Temp ABG pO2 at Pt Temp ABG HCO3 ABG O2 Sat (Measured) ABG O2 Content ABG Base Excess Dilip Test O2 Delivery Device Oxygen Flow Rate Mechanical Rate PEEP Sodium Potassium Chloride Carbon Dioxide Anion Gap BUN Creatinine Creat Clearance w eGFR POC Glucometer [phone] Random Glucose Lactic Acid Calcium Phosphorus Magnesium Total Bilirubin AST ALT Alkaline Phosphatase Troponin I Total Protein Albumin 05/23/17 05/23/17 05/23/17 05:55 05:55 08:00 WBC RBC Hgb Hct MCV MCH MCHC RDW Plt Count MPV Manual Slide Review Platelet Comment PT with INR INR PTT (Actin FS) Puncture Site Right radial ABG pH 7.22 L* ABG pCO2 at Pt Temp 29.2 L ABG pO2 at Pt Temp 84.2 ABG HCO3 11.5 L* ABG O2 Sat (Measured) 94.0 ABG O2 Content 13.7 L ABG Base Excess -14.7 L* Dilip Test Positive O2 Delivery Device Nasal cannula Oxygen Flow Rate 5l Mechanical Rate No PEEP 0.0 Sodium 134 L Potassium 4.2 Chloride 95 L Carbon Dioxide 15 L Anion Gap 24 H BUN 45 H Creatinine 4.8 H Creat Clearance w eGFR 9.32 POC Glucometer Random Glucose 210 H Lactic Acid Calcium 7.6 L Phosphorus 5.1 H Magnesium 2.3 Total Bilirubin 3.1 H AST 44 H ALT 29 Alkaline Phosphatase 110 Troponin I 1.93 H* Total Protein 6.1 L Albumin 2.1 L 05/23/17 08:20 WBC RBC Hgb Hct MCV MCH MCHC RDW Plt Count MPV Manual Slide Review Platelet Comment PT with INR INR PTT (Actin FS) Puncture Site ABG pH ABG pCO2 at Pt Temp ABG pO2 at Pt Temp ABG HCO3 ABG O2 Sat (Measured) ABG O2 Content ABG Base Excess Dilip Test O2 Delivery Device Oxygen Flow Rate Mechanical Rate PEEP Sodium Potassium Chloride Carbon Dioxide Anion Gap BUN Creatinine Creat Clearance w eGFR POC Glucometer Random Glucose Lactic Acid 11.3 H* Calcium Phosphorus Magnesium Total Bilirubin AST ALT Alkaline Phosphatase Troponin I Total Protein Albumin Problem List - Problems (1) Anemia Code(s): D64.9 - ANEMIA, UNSPECIFIED (2) CAD (coronary artery disease) Code(s): I25.10 - ATHSCL HEART DISEASE OF [place] CORONARY ARTERY W/O ANG PCTRS (3) ESRD (end stage renal disease) Code(s): N18.6 - END STAGE RENAL DISEASE (4) GI bleed Code(s): K92.2 - GASTROINTESTINAL HEMORRHAGE, UNSPECIFIED (5) Hx of CABG Code(s): Z95.1 - PRESENCE OF AORTOCORONARY BYPASS GRAFT Assessment/Plan Septic Shock ESRD on HD CAD DC Valvular heart disease s/p MVR/TVR GIB Acute blood loss anemia Bleeding hemorrhoids PLAN: AC Mode of vent Check ABG A line monitoring PPI drip Normal transfusion thresholds O2 as needed Hold ASA /coumadin Heme evaluation Midodrine Wean pressors HD Per Renal if hemodynamics allow ICU monitoring Dr Lozada Critical care time spent in reviewing chart, evaluating patient and formulating plan - 36 minutes.
[2017-05-23] MEDS ORDERED: DESMOPRESSIN ACETATE 4 MCG/ML AMP IVPB ONE (12:36)
--- NOTE | 2017-05-23 12:57 | PN ---
Physical Exam: SUBJECTIVE: Patient seen and examined Overnight, pt was persistently hypotensive requiring the maximum doses of 3 pressors. This am, pt significantly less alert and responsive, struggling to breathe, desatting on NC. Sats remained low on non-rebreather. Pt was successfully intubated and placed on vent. An arterial line was obtained in her left groin. OBJECTIVE: Vital Signs Period Temp Pulse Resp BP Sys/Ceron Pulse Ox Last 24 Hr 98 F-98.8 F 90-118 12-29 42-110/18-84 96-100 GENERAL: middle aged female, lying in bed, on vent, sedated, with anasarca HEENT: NC, AT. ET tube in place LUNGS: diffuse rhonchi/rales HEART: tachycardic ABDOMEN: obese, soft, NT EXTREMITIES: 2+ pitting edema in all 4 extremities. gangrene in b/l feet. wrists and ankles cold to palpation. no distal pulses able to be palpated NEUROLOGICAL: unresponsive Laboratory Results - last 24 hr 05/22/17 05/22/17 05/22/17 15:30 17:04 21:10 WBC RBC Hgb Hct MCV MCH MCHC RDW Plt Count MPV Manual Slide Review Platelet Comment PT with INR INR PTT (Actin FS) Puncture Site ABG pH ABG pCO2 at Pt Temp ABG pO2 at Pt Temp ABG HCO3 ABG O2 Sat (Measured) ABG O2 Content ABG Base Excess Dilip Test O2 Delivery Device Oxygen Flow Rate Mechanical Rate PEEP Sodium Potassium Chloride Carbon Dioxide Anion Gap BUN Creatinine Creat Clearance w eGFR POC Glucometer [phone] Random Glucose Lactic Acid Calcium Phosphorus Magnesium Total Bilirubin AST ALT Alkaline Phosphatase Troponin I 1.80 H* 2.02 H* Total Protein Albumin 05/22/17 05/23/17 05/23/17 21:42 05:55 05:55 WBC 11.8 H RBC 3.79 Hgb 10.4 L Hct 32.6 MCV 85.9 MCH 27.4 MCHC 31.9 L RDW 19.0 H Plt Count 98 L D MPV 9.4 Manual Slide Review No Result Required. Platelet Comment Room Attendant PT with INR 32.10 H INR 2.84 H D PTT (Actin FS) 53.2 H Puncture Site ABG pH ABG pCO2 at Pt Temp ABG pO2 at Pt Temp ABG HCO3 ABG O2 Sat (Measured) ABG O2 Content ABG Base Excess Dilip Test O2 Delivery Device Oxygen Flow Rate Mechanical Rate PEEP Sodium Potassium Chloride Carbon Dioxide Anion Gap BUN Creatinine Creat Clearance w eGFR POC Glucometer [phone] Random Glucose Lactic Acid Calcium Phosphorus Magnesium Total Bilirubin AST ALT Alkaline Phosphatase Troponin I Total Protein Albumin 05/23/17 05/23/17 05/23/17 05:55 05:55 08:00 WBC RBC Hgb Hct MCV MCH MCHC RDW Plt Count MPV Manual Slide Review Platelet Comment PT with INR INR PTT (Actin FS) Puncture Site Right radial ABG pH 7.22 L* ABG pCO2 at Pt Temp 29.2 L ABG pO2 at Pt Temp 84.2 ABG HCO3 11.5 L* ABG O2 Sat (Measured) 94.0 ABG O2 Content 13.7 L ABG Base Excess -14.7 L* Dilip Test Positive O2 Delivery Device Nasal cannula Oxygen Flow Rate 5l Mechanical Rate No PEEP 0.0 Sodium 134 L Potassium 4.2 Chloride 95 L Carbon Dioxide 15 L Anion Gap 24 H BUN 45 H Creatinine 4.8 H Creat Clearance w eGFR 9.32 POC Glucometer Random Glucose 210 H Lactic Acid Calcium 7.6 L Phosphorus 5.1 H Magnesium 2.3 Total Bilirubin 3.1 H AST 44 H ALT 29 Alkaline Phosphatase 110 Troponin I 1.93 H* Total Protein 6.1 L Albumin 2.1 L 05/23/17 05/23/17 08:20 12:20 WBC RBC Hgb Hct MCV MCH MCHC RDW Plt Count MPV Manual Slide Review Platelet Comment PT with INR INR PTT (Actin FS) Puncture Site ABG pH ABG pCO2 at Pt Temp ABG pO2 at Pt Temp ABG HCO3 ABG O2 Sat (Measured) ABG O2 Content ABG Base Excess Dilip Test O2 Delivery Device Oxygen Flow Rate Mechanical Rate PEEP Sodium Potassium Chloride Carbon Dioxide Anion Gap BUN Creatinine Creat Clearance w eGFR POC Glucometer [phone] Random Glucose Lactic Acid 11.3 H* Calcium Phosphorus Magnesium Total Bilirubin AST ALT Alkaline Phosphatase Troponin I Total Protein Albumin Active Medications Generic Name Dose Route Start Last Admin Trade Name Freq PRN Reason Stop Dose Admin Albuterol/Ipratropium 1 amp 05/21/17 18:00 05/22/17 21:06 Duoneb - NEB 1 amp Q4HPO RUEL Administration Calcitriol 0.25 mcg 05/23/17 10:45 05/23/17 11:53 Rocaltrol - PO Not Given DAILY RUEL Chlorhexidine Gluconate 1 applic 05/21/17 22:00 05/22/17 21:34 Hibiclens For Decolonization - TP 1 applic HS RUEL Administration Desmopressin Acetate 30 mcg 05/23/17 12:36 Ddavp Injection - IVPB 05/23/17 12:37 ONCE ONE Gabapentin 100 mg 05/22/17 22:00 05/22/17 21:31 Neurontin - PO 100 mg HS RUEL Administration Hydrocortisone Sodium Succinate 100 mg 05/23/17 18:00 Solu-Cortef - IVPB Q8H-IV RUEL Pantoprazole Sodium 80 mg/ 100 mls @ 10 mls/hr 05/21/17 18:00 05/23/17 10:23 Sodium Chloride IVPB 10 mls/hr Q10H RUEL Administration 8 MG/HR Norepinephrine Bitartrate 8, 500 mls @ 18.75 mls/hr 05/21/17 16:45 05/23/17 04:54 000 mcg/ Dextrose IV 40 mcg/min TITR RUEL 150 mls/hr Protocol Titration 5 MCG/MIN Phenylephrine HCl 20,000 mcg/ 250 mls @ 75 mls/hr 05/22/17 13:00 05/23/17 12: 46 Sodium Chloride IVPB 200 mcg/min ASDIR RUEL 150 mls/hr Protocol Administration 100 MCG/MIN Vasopressin 50 units/ Sodium 100 mls @ 4 mls/hr 05/22/17 22:30 05/23/17 06:53 Chloride IVPB 6 units/hr ASDIR RUEL 12 mls/hr Protocol Titration 2 UNITS/HR Meropenem 500 mg/ Dextrose 100 mls @ 200 mls/hr 05/23/17 08:00 05/23/17 08:05 IVPB 200 mls/hr BID RUEL Administration Midazolam HCl 100 mg/ Sodium 100 mls @ 1 mls/hr 05/23/17 12:00 Chloride IVPB TITR RUEL Protocol 1 MG/HR Insulin Aspart 1 vial 05/22/17 22:00 05/23/17 12:22 Novolog Vial Sliding Scale - SQ 4 units ACHS RUEL Administration Protocol Midodrine 5 mg 05/21/17 23:15 05/23/17 11:53 Proamatine - PO Not Given TID-MID RUEL Mometasone Furoate 1 puff 05/21/17 22:00 05/22/17 21:33 Asmanex 220mcg - IH 1 puff HS RUEL Administration Multivit/Ca Carb/B Cmplx/FA/Prenat 1 tablet 05/22/17 10:00 05/23/17 11:53 Nephro-Pancho - PO Not Given DAILY RUEL Mupirocin 1 applic 05/21/17 22:00 05/23/17 10:22 Bactroban Ointment (For Decolonization) - NS 05/26/17 21:59 1 applic BID RUEL Administration Phytonadione 10 mg 05/23/17 13:00 05/23/17 12:38 Aqua Mephyton Injection - IVPB 05/23/17 13:01 10 mg ONCE ONE Administration Witch Peggy/Glycerin 1 pad 05/21/17 19:15 05/23/17 11:55 Tucks Pads - TP 1 pad Q4H RUEL Administration ASSESSMENT/PLAN: 56F w/ hx of DM, HTN, [place] s/p CABG (03/2017), ESRD on Hemodialysis (M/W/F), and hemorrhoids who presented with BRBPR, admitted to ICU with shock. Pt is s/p 3U of PRBCs, still hypotensive requiring 3 pressors, s/p intubation today for resp distress. #GI -likely lower GI bleed source from hemorrhoids, can't r/o other lower sources (anal fissure, rectal or colonic mass, diverticulosis, AVM) or upper ( PUD, gastritis/esophagitis, etc). Etiology possibly 2/2 DIC -Hgb of 6.9 on admission--> 10.4 today demonstrating adequate response to repletion -IV protonix -GI on board, Dr. Iniguez -home ASA held -no further episodes of rectal bleeding #CV -troponinemia, likely due to clearance failure as pt is ESRD. Trops peaked at 2.02 -shock with lactic acidosis of 11.2 today, etiology unknown. possibly septic but no clear source. possibly cardiogenic given pt's recent hx of NSTEMI, CABG, cardiac arrest, and recent echo results. -continue levo, vasopressin, and phenylephrine. wean at tolerated. start hydrocortisone 100mg q8h. will discuss starting dobutamine with cardiology. -cardiology on board, Dr. Stapleton. f/u recs -b/l gangrenous feet. vascular on board, Dr. Smith, f/u recs #Resp -s/p intubation today -versed gtt -f/u repeat ABG #hematology -hematology on board, Dr. Salomon, f/u recs -elevated PT, INR, and PTT in conjunction with anemia and thrombocytopenia and pt's comorbidities and clinical presentation support diagnosis of DIC -f/u retic count, LDH, fibrinogen, D-dimer. If positive for DIC, will administer vit. K and FFP #nephro -renal on board, Dr. Plummer. f/u recs. HD unable to be performed due to unstable clinical condition #neuro -sedated #endo -DM, diet controlled -BGM q6h -continue home gabapentin 100mg HS #ID -dry gangrene on b/l feet -afebrile, minimal leukocytosis. Bcx currently show no growth x 24h -ID on board, Dr. Collins. pt started on vancomycin, meropenem, and gentamicin -f/u repeat Bcx #FEN/ppx -pressors -electrolytes wnl -NPO -protonix -no DVT ppx as elevated INR and GI bleed #HCPs -son Betina and sister Bebeto. Aware of pt's condition. Updated today several times. They still want full code. Case discussed with attending, Dr. Lozada. -Den Dsouza MD PGY1 ICU Team Visit type - Emergency Visit Emergency Visit: Yes ED Registration Date: 05/21/17 Care time: The patient presented to the Emergency Department on the above date and was hospitalized for further evaluation of their emergent condition. - New Patient This patient is new to me today: No - Critical Care Critical Care patient: Yes Total Critical Care Time (in minutes): 70 Critical Care Statement: The care of this patient involved high complexity decision making to prevent further life threatening deterioration of the patient 's condition and/or to evaluate & treat vital organ system(s) failure or risk of failure.
[2017-05-23] MEDS ORDERED: PHYTONADIONE 10 MG/1 ML AMP IVPB ONE (13:00)
[2017-05-23] MEDS ORDERED: SODIUM CHLORIDE IVPB ONE (13:00)
[2017-05-23] MEDS ORDERED: DESMOPRESSIN ACETATE IVPB ONE (13:00)
--- NOTE | 2017-05-23 13:44 | PROC ---
Procedure Note Procedure: An A-line was placed in the left femoral artery for blood pressure monitoring. Vessel was imaged using ultrasound. Access was obtained using sellinger technique. Pulseatile flow was observed in line. Line was secured and attached to monitor for use. Line was secured with bio-occlusive and additional bio- patch. No adverse events occured during this procedure. Intubation - Intubation Reason for Intubation: Respiratory Failure, Airway Protection Time of Intubation: 09:00 Intubation Method: orotracheal Blade used: Glidescope Tube Size (cm): 7.5 Tube position @ lip (cm): 22 Tube position confirmed by: Direct visualization, CO2 detector, Chest x-ray, Breath sounds Breath Sounds after Intubation: equal Post Intubation Xray: Yes
[2017-05-23 14:09] LABS: ARTERIAL BLD GAS O2 SATURATION 99.9 % (90-98.9); ARTERIAL BLOOD GAS BASE EXCESS -13.7 meq/l (-2-2); ARTERIAL BLOOD GAS PCO2 27.1 mmHg (35-45); ARTERIAL BLOOD GAS pH 7.26 (7.35-7.45)
[2017-05-23] MEDS: ALBUTEROL SO4 2.5/IPRATROPIUM 0.5 INH SOL 3 ML VIAL.NEB. NEB SCH ×3 (14:36→18:16)
[2017-05-23] MEDS ORDERED: SODIUM CHLORIDE 250 ML IV PRN (14:43)
[2017-05-23] MEDS: NOREPINEPHRINE BITARTRATE 8,000 MCG in DEXTROSE 5%-WATER - 492 ML IV SCH ×2 (15:30→21:52)
--- NOTE | 2017-05-23 15:44 | PN ---
Progress Note, Physician History of Present Illness: Pt seen/ examined. Chart reviewed. All f/u noted . Family at bed side. Intubated. On pressors. - Current Medication List Current Medications: Active Medications Albuterol/Ipratropium (Duoneb -) 1 amp NEB Q4HPO RUEL Last Admin: 05/23/17 14:36 Dose: 1 amp Calcitriol (Rocaltrol -) 0.25 mcg PO DAILY RUEL Last Admin: 05/23/17 11:53 Dose: Not Given Chlorhexidine Gluconate (Hibiclens For Decolonization -) 1 applic TP HS RUEL Last Admin: 05/22/17 21:34 Dose: 1 applic Gabapentin (Neurontin -) 100 mg PO HS RUEL Last Admin: 05/22/17 21:31 Dose: 100 mg Hydrocortisone Sodium Succinate (Solu-Cortef -) 100 mg IVPB Q8H-IV RUEL Pantoprazole Sodium 80 mg/ (Sodium Chloride) 100 mls @ 10 mls/hr IVPB Q10H RUEL PRN Reason: 8 MG/HR Last Admin: 05/23/17 10:23 Dose: 10 mls/hr Norepinephrine Bitartrate 8, (000 mcg/ Dextrose) 500 mls @ 18.75 mls/hr IV TITR RUEL; 5 MCG/MIN PRN Reason: Protocol Last Admin: 05/23/17 15:30 Dose: 40 mcg/min, 150 mls/hr Phenylephrine HCl 20,000 mcg/ (Sodium Chloride) 250 mls @ 75 mls/hr IVPB ASDIR RUEL; 100 MCG/MIN PRN Reason: Protocol Last Admin: 05/23/17 12:46 Dose: 200 mcg/min, 150 mls/hr Vasopressin 50 units/ Sodium (Chloride) 100 mls @ 4 mls/hr IVPB ASDIR RUEL; 2 UNITS/HR PRN Reason: Protocol Last Titration: 05/23/17 06:53 Dose: 6 units/hr, 12 mls/hr Meropenem 500 mg/ Dextrose 100 mls @ 200 mls/hr IVPB BID RUEL Last Admin: 05/23/17 08:05 Dose: 200 mls/hr Midazolam HCl 100 mg/ Sodium (Chloride) 100 mls @ 1 mls/hr IVPB TITR RUEL; 1 MG/ HR PRN Reason: Protocol Sodium Chloride (Normal Saline -) 250 mls @ 3,000 mls/hr IV PRN PRN PRN Reason: Hypotension during Dialysis Stop: 05/24/17 14:43 Insulin Aspart (Novolog Vial Sliding Scale -) 1 vial SQ ACHS [facility] PRN Reason: Protocol Last Admin: 05/23/17 12:22 Dose: 4 units Midodrine (Proamatine -) 5 mg PO TID-MID [facility] Last Admin: 05/23/17 15:30 Dose: Not Given Mometasone Furoate (Asmanex 220mcg -) 1 puff IH HS [facility] Last Admin: 05/22/17 21:33 Dose: 1 puff Multivit/Ca Carb/B Cmplx/FA/Prenat (Nephro-Pancho -) 1 tablet PO DAILY [facility] Last Admin: 05/23/17 11:53 Dose: Not Given Mupirocin (Bactroban Ointment (For Decolonization) -) 1 applic NS BID [facility] Stop: 05/26/17 21:59 Last Admin: 05/23/17 10:22 Dose: 1 applic Witch Peggy/Glycerin (Tucks Pads -) 1 pad TP Q4H [facility] Last Admin: 05/23/17 15:32 Dose: 1 pad - Objective Vital Signs: Vital Signs Temperature 97 F L 05/23/17 13:00 Pulse Rate 100 H 05/23/17 15:30 Respiratory Rate 18 05/23/17 14:34 Blood Pressure 122/58 05/23/17 15:30 O2 Sat by Pulse Oximetry (%) 96 05/23/17 09:00 Constitutional: Yes: Other (unresponsive on vent) Cardiovascular: Yes: Regular Rate and Rhythm Respiratory: Yes: Diminished Gastrointestinal: Yes: Soft Extremities: Yes: Other (Bilateral Dry Gangrene .) Edema: LLE: 2+, RLE: 2+ Labs: CBC, BMP 05/23/17 05:55 05/23/17 05:55 INR, PTT INR 2.84 (0.82-1.09) H D 05/23/17 05:55 Fibrinogen 241.0 mg/dL (238-498) 05/23/17 12:15 - ....Imaging Chest X-ray: Report Reviewed Problem List - Problems (1) Respiratory failure Code(s): J96.90 - RESPIRATORY FAILURE, UNSP, UNSP W HYPOXIA OR HYPERCAPNIA (2) Coagulopathy Code(s): D68.9 - COAGULATION DEFECT, UNSPECIFIED (3) GI bleed Code(s): K92.2 - GASTROINTESTINAL HEMORRHAGE, UNSPECIFIED (4) Gangrene Code(s): I96 - GANGRENE, NOT ELSEWHERE CLASSIFIED (5) Hx of CABG Code(s): Z95.1 - PRESENCE OF AORTOCORONARY BYPASS GRAFT Assessment/Plan Pt is critically ill. Respiratory failure. Septic Shock ESRD on HD CAD +ve troponins Valvular heart disease s/p MVR/TVR-- recent hospitalization at [facility] GI Bleed Dry Gangrene. DIC ? I discussed condition with Dr. Appiah/ Dr. León . Discussed also with Nursing staff as well as biomedical engineering professor. Prognosis grave. I also discussed with pts family-- sons/ daughter/ sister. Explained in detail. Request everything to be done . Continue present care. cc time 40 min. will follow
--- NOTE | 2017-05-23 16:13 | PN ---
Progress Note, Physician Chief Complaint: Hypotensive on multiple pressors. poorly responsive. Intubated for respiratory protection. History of Present Illness: 56F w/ DM, HTN, s/p CABG 03/2017 after NSTEMI at [facility] with Dr. Martines MVR and TVR , ESRD on Hemodialysis (M/W/F) and PVD, who presented from [facility] for rectal bleeding. She was severely anemic and hypotensive. SP multiple PRBC and on Nor- epi. Takes aspirin, but no other AC. coumadin was stopped on 05/11. The patient denies chest pain, shortness of breath. - Current Medication List Current Medications: Active Medications Albuterol/Ipratropium (Duoneb -) 1 amp NEB Q4HPO RUEL Last Admin: 05/23/17 14:36 Dose: 1 amp Calcitriol (Rocaltrol -) 0.25 mcg PO DAILY RU[facility] Last Admin: 05/23/17 11:53 Dose: Not Given Chlorhexidine Gluconate (Hibiclens For Decolonization -) 1 applic TP HS RUEL Last Admin: 05/22/17 21:34 Dose: 1 applic Gabapentin (Neurontin -) 100 mg PO HS RUEL Last Admin: 05/22/17 21:31 Dose: 100 mg Hydrocortisone Sodium Succinate (Solu-Cortef -) 100 mg IVPB Q8H-IV RUEL Pantoprazole Sodium 80 mg/ (Sodium Chloride) 100 mls @ 10 mls/hr IVPB Q10H RUEL PRN Reason: 8 MG/HR Last Admin: 05/23/17 10:23 Dose: 10 mls/hr Norepinephrine Bitartrate 8, (000 mcg/ Dextrose) 500 mls @ 18.75 mls/hr IV TITR RUEL; 5 MCG/MIN PRN Reason: Protocol Last Admin: 05/23/17 15:30 Dose: 40 mcg/min, 150 mls/hr Phenylephrine HCl 20,000 mcg/ (Sodium Chloride) 250 mls @ 75 mls/hr IVPB ASDIR RUEL; 100 MCG/MIN PRN Reason: Protocol Last Admin: 05/23/17 12:46 Dose: 200 mcg/min, 150 mls/hr Vasopressin 50 units/ Sodium (Chloride) 100 mls @ 4 mls/hr IVPB ASDIR RUEL; 2 UNITS/HR PRN Reason: Protocol Last Titration: 05/23/17 06:53 Dose: 6 units/hr, 12 mls/hr Meropenem 500 mg/ Dextrose 100 mls @ 200 mls/hr IVPB BID [facility] Last Admin: 05/23/17 08:05 Dose: 200 mls/hr Midazolam HCl 100 mg/ Sodium (Chloride) 100 mls @ 1 mls/hr IVPB TITR RUEL; 1 MG/ HR PRN Reason: Protocol Sodium Chloride (Normal Saline -) 250 mls @ 3,000 mls/hr IV PRN PRN PRN Reason: Hypotension during Dialysis Stop: 05/24/17 14:43 Insulin Aspart (Novolog Vial Sliding Scale -) 1 vial SQ ACHS [facility] PRN Reason: Protocol Last Admin: 05/23/17 12:22 Dose: 4 units Midodrine (Proamatine -) 5 mg PO TID-MID [facility] Last Admin: 05/23/17 15:30 Dose: Not Given Mometasone Furoate (Asmanex 220mcg -) 1 puff IH HS [facility] Last Admin: 05/22/17 21:33 Dose: 1 puff Multivit/Ca Carb/B Cmplx/FA/Prenat (Nephro-Pancho -) 1 tablet PO DAILY [facility] Last Admin: 05/23/17 11:53 Dose: Not Given Mupirocin (Bactroban Ointment (For Decolonization) -) 1 applic NS BID [facility] Stop: 05/26/17 21:59 Last Admin: 05/23/17 10:22 Dose: 1 applic Witch Peggy/Glycerin (Tucks Pads -) 1 pad TP Q4H [facility] Last Admin: 05/23/17 15:32 Dose: 1 pad - Objective Vital Signs: Vital Signs Temperature 97 F L 05/23/17 13:00 Pulse Rate 100 H 05/23/17 15:30 Respiratory Rate 18 05/23/17 14:34 Blood Pressure 122/58 05/23/17 15:30 O2 Sat by Pulse Oximetry (%) 96 05/23/17 09:00 HENT: Yes: Atraumatic, Normocephalic Neck: Yes: Supple Cardiovascular: Yes: Regular Rate and Rhythm, JVD, S1, S2 Respiratory: Yes: Regular Edema: Yes Edema: LUE: 2+, RUE: 2+ Labs: CBC, BMP 05/23/17 05:55 05/23/17 05:55 INR, PTT INR 2.84 (0.82-1.09) H D 05/23/17 05:55 Fibrinogen 241.0 mg/dL (238-498) 05/23/17 12:15 - ....Imaging Chest X-ray: Report Reviewed (Pulmonary edema) Problem List - Problems (1) Anemia Code(s): D64.9 - ANEMIA, UNSPECIFIED (2) CAD (coronary artery disease) Code(s): I25.10 - ATHSCL HEART DISEASE OF [place] CORONARY ARTERY W/O ANG PCTRS (3) GI bleed Code(s): K92.2 - GASTROINTESTINAL HEMORRHAGE, UNSPECIFIED Assessment/Plan She is post recent CABG MVR and TVR admitted with GI bleeding. Developed respiratory failure and refractory hypotension. Cold extremities on high dose pressors. Echocardiogram from 05/22 was reviewed by me. Shows severe global LV systolic dysfunction EF about 30%. MV repair with mild MR. Dialted and moderately hypokinetic RV. TV repair with severe TR. She is volume overloaded and hypotensive on high dose of pressors. Would advise placing on Inotropic support. Add Dobutamine 5mcg/kg/min. Taper down vasopressors if possible. Getting HD for volume removal. may need another HD session tomorrow based on clinical status.
--- NOTE | 2017-05-23 16:54 | PN ---
Progress Note, Physician History of Present Illness: Pt seen and examined at bedside. She remains in the ICU. Her blood pressure has been low and she is on pressors. An a-line was placed and the BP readings are better. - Current Medication List Current Medications: Active Medications Albuterol/Ipratropium (Duoneb -) 1 amp NEB Q4HPO RUEL Last Admin: 05/23/17 14:36 Dose: 1 amp Calcitriol (Rocaltrol -) 0.25 mcg PO DAILY [facility] Last Admin: 05/23/17 11:53 Dose: Not Given Chlorhexidine Gluconate (Hibiclens For Decolonization -) 1 applic TP HS [facility] Last Admin: 05/22/17 21:34 Dose: 1 applic Gabapentin (Neurontin -) 100 mg PO HS [facility] Last Admin: 05/22/17 21:31 Dose: 100 mg Hydrocortisone Sodium Succinate (Solu-Cortef -) 100 mg IVPB Q8H-IV [facility]EL Pantoprazole Sodium 80 mg/ (Sodium Chloride) 100 mls @ 10 mls/hr IVPB Q10H RUEL PRN Reason: 8 MG/HR Last Admin: 05/23/17 10:23 Dose: 10 mls/hr Norepinephrine Bitartrate 8, (000 mcg/ Dextrose) 500 mls @ 18.75 mls/hr IV TITR RUEL; 5 MCG/MIN PRN Reason: Protocol Last Admin: 05/23/17 15:30 Dose: 40 mcg/min, 150 mls/hr Phenylephrine HCl 20,000 mcg/ (Sodium Chloride) 250 mls @ 75 mls/hr IVPB ASDIR RUEL; 100 MCG/MIN PRN Reason: Protocol Last Admin: 05/23/17 12:46 Dose: 200 mcg/min, 150 mls/hr Vasopressin 50 units/ Sodium (Chloride) 100 mls @ 4 mls/hr IVPB ASDIR RUEL; 2 UNITS/HR PRN Reason: Protocol Last Titration: 05/23/17 06:53 Dose: 6 units/hr, 12 mls/hr Meropenem 500 mg/ Dextrose 100 mls @ 200 mls/hr IVPB BID [facility] Last Admin: 05/23/17 08:05 Dose: 200 mls/hr Midazolam HCl 100 mg/ Sodium (Chloride) 100 mls @ 1 mls/hr IVPB TITR RUEL; 1 MG/ HR PRN Reason: Protocol Sodium Chloride (Normal Saline -) 250 mls @ 3,000 mls/hr IV PRN PRN PRN Reason: Hypotension during Dialysis Stop: 05/24/17 14:43 Dobutamine HCl/Dextrose (Dobutamine 250 Mg/D5w -) 250,000 mcg in 250 mls @ 24.889 mls/hr IV TITR RUEL; 5 MCG/KG/MIN PRN Reason: Protocol Insulin Aspart (Novolog Vial Sliding Scale -) 1 vial SQ ACHS RU[facility] PRN Reason: Protocol Last Admin: 05/23/17 12:22 Dose: 4 units Midodrine (Proamatine -) 5 mg PO TID-MID [facility] Last Admin: 05/23/17 15:30 Dose: Not Given Mometasone Furoate (Asmanex 220mcg -) 1 puff IH HS [facility] Last Admin: 05/22/17 21:33 Dose: 1 puff Multivit/Ca Carb/B Cmplx/FA/Prenat (Nephro-Pancho -) 1 tablet PO DAILY [facility] Last Admin: 05/23/17 11:53 Dose: Not Given Mupirocin (Bactroban Ointment (For Decolonization) -) 1 applic NS BID [facility] Stop: 05/26/17 21:59 Last Admin: 05/23/17 10:22 Dose: 1 applic Witch Peggy/Glycerin (Tucks Pads -) 1 pad TP Q4H [facility] Last Admin: 05/23/17 15:32 Dose: 1 pad - Objective Vital Signs: Vital Signs Temperature 97 F L 05/23/17 13:00 Pulse Rate 100 H 05/23/17 15:30 Respiratory Rate 18 05/23/17 14:34 Blood Pressure 122/58 05/23/17 15:30 O2 Sat by Pulse Oximetry (%) 96 05/23/17 09:00 Constitutional: Yes: Calm Eyes: Yes: Conjunctiva Clear Cardiovascular: Yes: S1, S2 Respiratory: Yes: Mechanically Ventilated Gastrointestinal: Yes: Soft, Abdomen, Obese Genitourinary: Yes: Incontinence Musculoskeletal: Yes: Muscle Weakness Edema: Yes Integumentary: Yes: Other (right foot gangrene) Neurological: Yes: Lethargy Labs: CBC, BMP 05/23/17 05:55 05/23/17 05:55 INR, PTT INR 2.84 (0.82-1.09) H D 05/23/17 05:55 Fibrinogen 241.0 mg/dL (238-498) 05/23/17 12:15 - ....Imaging Chest X-ray: Report Reviewed Problem List - Problems (1) ESRD (end stage renal disease) Code(s): N18.6 - END STAGE RENAL DISEASE (2) CAD (coronary artery disease) Code(s): I25.10 - ATHSCL HEART DISEASE OF [place] CORONARY ARTERY W/O ANG PCTRS (3) Hx of CABG Code(s): Z95.1 - PRESENCE OF AORTOCORONARY BYPASS GRAFT (4) Anemia Code(s): D64.9 - ANEMIA, UNSPECIFIED (5) GI bleed Code(s): K92.2 - GASTROINTESTINAL HEMORRHAGE, UNSPECIFIED Assessment/Plan Current Medications Generic Name Dose Route Start Last Admin Trade Name Freq PRN Reason Stop Dose Admin Albuterol/Ipratropium 1 amp 05/21/17 18:00 05/23/17 14:36 Duoneb - NEB 1 amp Q4HPO RUEL Administration Calcitriol 0.25 mcg 05/23/17 10:45 05/23/17 11:53 Rocaltrol - PO Not Given DAILY RUEL Chlorhexidine Gluconate 1 applic 05/21/17 22:00 05/22/17 21:34 Hibiclens For Decolonization - TP 1 applic HS RUEL Administration Gabapentin 100 mg 05/22/17 22:00 05/22/17 21:31 Neurontin - PO 100 mg HS RUEL Administration Hydrocortisone Sodium Succinate 100 mg 05/23/17 18:00 Solu-Cortef - IVPB Q8H-IV RUEL Pantoprazole Sodium 80 mg/ 100 mls @ 10 mls/hr 05/21/17 18:00 05/23/17 10:23 Sodium Chloride IVPB 10 mls/hr Q10H RUEL Administration 8 MG/HR Norepinephrine Bitartrate 8, 500 mls @ 18.75 mls/hr 05/21/17 16:45 05/23/17 15:30 000 mcg/ Dextrose IV 40 mcg/min TITR RUEL 150 mls/hr Protocol Administration 5 MCG/MIN Phenylephrine HCl 20,000 mcg/ 250 mls @ 75 mls/hr 05/22/17 13:00 05/23/17 12: 46 Sodium Chloride IVPB 200 mcg/min ASDIR RUEL 150 mls/hr Protocol Administration 100 MCG/MIN Vasopressin 50 units/ Sodium 100 mls @ 4 mls/hr 05/22/17 22:30 05/23/17 06:53 Chloride IVPB 6 units/hr ASDIR RUEL 12 mls/hr Protocol Titration 2 UNITS/HR Meropenem 500 mg/ Dextrose 100 mls @ 200 mls/hr 05/23/17 08:00 05/23/17 08:05 IVPB 200 mls/hr BID RUEL Administration Midazolam HCl 100 mg/ Sodium 100 mls @ 1 mls/hr 05/23/17 12:00 Chloride IVPB TITR RUEL Protocol 1 MG/HR Sodium Chloride 250 mls @ 3,000 mls/hr 05/23/17 14:43 Normal Saline - IV 05/24/17 14:43 PRN PRN Hypotension during Dialysis Dobutamine HCl/Dextrose 250,000 mcg in 250 mls @ 24.889 mls/hr 05/23/17 16:45 Dobutamine 250 Mg/D5w - IV TITR RUEL Protocol 5 MCG/KG/MIN Insulin Aspart 1 vial 05/22/17 22:00 05/23/17 12:22 Novolog Vial Sliding Scale - SQ 4 units ACHS RUEL Administration Protocol Midodrine 5 mg 05/21/17 23:15 05/23/17 15:30 Proamatine - PO Not Given TID-MID RUEL Mometasone Furoate 1 puff 05/21/17 22:00 05/22/17 21:33 Asmanex 220mcg - IH 1 puff HS RUEL Administration Multivit/Ca Carb/B Cmplx/FA/Prenat 1 tablet 05/22/17 10:00 05/23/17 11:53 Nephro-Pancho - PO Not Given DAILY RUEL Mupirocin 1 applic 05/21/17 22:00 05/23/17 10:22 Bactroban Ointment (For Decolonization) - NS 05/26/17 21:59 1 applic BID RUEL Administration Witch Peggy/Glycerin 1 pad 05/21/17 19:15 05/23/17 15:32 Tucks Pads - TP 1 pad Q4H RUEL Administration Impression 1. ESRD 2. GI bleed likely from hemorrhoids 3. hemorrhoids 4. anemia 5. CAD 6. s/p CABG 7. DM 8. hypotension 9. lactic acidosis Plan - bp is better with a-line, pt remains on multiple pressors - discussed case with family at length, will attempt to dialyze pt today - follow cultures - cont abx - surgery follow up - discussed with ICU team at length - oncology eval - monitor coags - prognosis is poor - will follow Dr Plummer
[2017-05-23] MEDS: DOBUTAMINE 250 MG/D5W - 250,000 MCG/250 ML INFUS.BAG IV SCH (16:58)
[2017-05-23] MEDS: MIDAZOLAM 100 MG in SODIUM CHLORIDE 100 ML IVPB SCH (17:40)
[2017-05-23] MEDS: HYDROCORTISONE SOD SUCCINATE 100 MG/2 ML VIAL IVPB SCH (18:43)
[2017-05-23 20:03] LABS: HEMATOCRIT 27.6 % (32.4-45.2); HEMOGLOBIN 8.9 GM/dL (10.7-15.3); MCH 27.6 pg (25.7-33.7); MCHC 32.4 g/dl (32.0-36.0); MEAN CELL VOLUME 85.2 fl (80-96); MEAN PLT VOLUME 9.2 fl (7.5-11.1); RBC 3.23 M/mm3 (3.60-5.2); RDW 19.4 % (11.6-15.6); WHITE BLOOD COUNT 10.3 K/mm3 (4.0-10.0)
[2017-05-23 20:11] LABS: ADD RBC MORPHOLOGY YES
[2017-05-23 20:17] LABS: INR 2.14 (0.82-1.09); PROTHROMBIN TIME (PATIENT) 24.2 SEC (9.98-11.88)
[2017-05-23 20:20] LABS: ACTIVATED PTT 49.5 SECONDS (26.9-34.4)
[2017-05-23 20:57] LABS: PLATELET COUNT 45 K/MM3 (134-434)
[2017-05-23 20:58] LABS: ANISOCYTOSIS 2+; MACROCYTOSIS 1+
[2017-05-23 20:59] LABS: PLATELET ESTIMATE DECREASED
[2017-05-23] MEDS ORDERED: PT OWN MED DRAWER 7, Y5N ONE (21:32)
[2017-05-23] MEDS: CHLORHEXIDINE GLUCONATE 4% CLEANSER FOR DECOLONIZATION TP SCH (21:54)
[2017-05-23] MEDS: GABAPENTIN 100 MG CAPSULE (FP) PO SCH (21:54)
[2017-05-23] MEDS: MOMETASONE FUROATE 220 MCG/IH INHALER IH SCH (21:54)
[2017-05-23] MEDS: VASOPRESSIN 50 UNITS in SODIUM CHLORIDE 97.5 ML IVPB SCH (22:51)
[2017-05-24] MEDS ORDERED: DOBUTAMINE 250 MG/D5W - 250,000 MCG/250 ML INFUS.BAG ONE (00:06)
[2017-05-24] MEDS: WITCH HAZEL 50% (TUCKS) 40 PAD/JAR PAD TP SCH ×7 (00:17→21:52)
[2017-05-24] MEDS: HYDROCORTISONE SOD SUCCINATE 100 MG/2 ML VIAL IVPB SCH ×3 (01:19→18:39)
[2017-05-24] MEDS: ALBUTEROL SO4 2.5/IPRATROPIUM 0.5 INH SOL 3 ML VIAL.NEB. NEB SCH ×6 (02:05→21:30)
[2017-05-24] MEDS ORDERED: PHENYLEPHRINE HCL 10 MG/1 ML SINGLE DOSE VIAL ONE ×2 (02:24→13:10)
[2017-05-24] MEDS: PANTOPRAZOLE SODIUM 80 MG in SODIUM CHLORIDE 100 ML IVPB SCH ×2 (06:07→18:37)
[2017-05-24] MEDS: INSULIN SLIDING SCALE (NOVOLOG) 1 VIAL SQ SCH ×4 (06:08→18:35)
[2017-05-24 06:19] LABS: BASO % 0.2 % (0-2.0); EOS % 0.1 % (0-4.5); HEMATOCRIT 24.8 % (32.4-45.2); HEMOGLOBIN 8.4 GM/dL (10.7-15.3); MCH 28.3 pg (25.7-33.7); MCHC 33.9 g/dl (32.0-36.0); MEAN CELL VOLUME 83.5 fl (80-96); MONO % 5.4 % (3.8-10.2); NEUT % 91.3 % (42.8-82.8); RBC 2.97 M/mm3 (3.60-5.2); RDW 19.5 % (11.6-15.6); WHITE BLOOD COUNT 7.7 K/mm3 (4.0-10.0)
[2017-05-24 06:37] LABS: ALBUMIN 1.8 g/dl (3.4-5.0); ANION GAP 12 (8-16); BLOOD UREA NITROGEN 29 mg/dL (7-18); CALCIUM 7.4 mg/dL (8.5-10.1); CHLORIDE 99 mmol/L (98-107); CO2 23 mmol/L (21-32); CREATININE 3.7 mg/dL (0.55-1.02); GLUCOSE,RANDOM 213 mg/dL (74-106); MAGNESIUM 1.6 mg/dL (1.8-2.4); PHOSPHOROUS 2.9 mg/dL (2.5-4.9); SGOT/AST 60 U/L (15-37); SGPT/ALT 23 U/L (12-78); SODIUM 134 mmol/L (136-145)
[2017-05-24 06:46] LABS: ALK PHOS 87 U/L (45-117); BILIRUBIN,TOTAL 3.9 mg/dL (0.2-1.0); TOT PROT 5.1 g/dl (6.4-8.2)
[2017-05-24 06:53] LABS: INR 1.86 (0.82-1.09)
[2017-05-24 06:55] LABS: ACTIVATED PTT 50.1 SECONDS (26.9-34.4)
--- NOTE | 2017-05-24 08:02 | PN ---
Progress Note (short form) - Note Progress Note: chart reviewed remains intubated on multiple pressors no gi bleeding overnight s/p HD yesterday no fluid removed due to hypotension Vital Signs Period Temp Pulse Resp BP Sys/Ceron Pulse Ox Last 24 Hr 97 F-98.8 F 88-107 14-25 41-136/26-92 96-100 intubated left subclavian CVP left arm avf with ?revision with sutures ext-bilateral foot gangrene- cor-rrr sternal wound intact lungs decreased bs at bases abd soft,nt CBC, BMP 05/24/17 05:50 05/24/17 05:50 Microbiology 05/21/17 20:00 Blood - Peripheral Venous Blood Culture - Preliminary NO GROWTH OBTAINED AFTER 48 HOURS, INCUBATION TO CONTINUE FOR 3 DAYS. 05/21/17 19:56 Blood - Peripheral Venous Blood Culture - Preliminary NO GROWTH OBTAINED AFTER 48 HOURS, INCUBATION TO CONTINUE FOR 3 DAYS. Current Medications Albuterol/Ipratropium (Duoneb -) 1 amp NEB Q4HPO [facility] Last Admin: 05/24/17 06:15 Dose: 1 amp Calcitriol (Rocaltrol -) 0.25 mcg PO DAILY [facility] Last Admin: 05/23/17 11:53 Dose: Not Given Chlorhexidine Gluconate (Hibiclens For Decolonization -) 1 applic TP HS [facility] Last Admin: 05/23/17 21:54 Dose: 1 applic Gabapentin (Neurontin -) 100 mg PO HS [facility] Last Admin: 05/23/17 21:54 Dose: Not Given Hydrocortisone Sodium Succinate (Solu-Cortef -) 100 mg IVPB Q8H-IV [facility] Last Admin: 05/24/17 01:19 Dose: 100 mg Pantoprazole Sodium 80 mg/ (Sodium Chloride) 100 mls @ 10 mls/hr IVPB Q10H [facility] PRN Reason: 8 MG/HR Last Admin: 05/24/17 06:07 Dose: 10 mls/hr Norepinephrine Bitartrate 8, (000 mcg/ Dextrose) 500 mls @ 18.75 mls/hr IV TITR RUEL; 5 MCG/MIN PRN Reason: Protocol Last Admin: 05/23/17 21:52 Dose: 40 mcg/min, 150 mls/hr Phenylephrine HCl 20,000 mcg/ (Sodium Chloride) 250 mls @ 75 mls/hr IVPB ASDIR RUEL; 100 MCG/MIN PRN Reason: Protocol Last Admin: 05/23/17 12:46 Dose: 200 mcg/min, 150 mls/hr Vasopressin 50 units/ Sodium (Chloride) 100 mls @ 4 mls/hr IVPB ASDIR RUEL; 2 UNITS/HR PRN Reason: Protocol Last Admin: 05/23/17 22:51 Dose: Not Given Meropenem 500 mg/ Dextrose 100 mls @ 200 mls/hr IVPB BID [facility] Last Admin: 05/23/17 22:20 Dose: 200 mls/hr Midazolam HCl 100 mg/ Sodium (Chloride) 100 mls @ 1 mls/hr IVPB TITR RUEL; 1 MG/ HR PRN Reason: Protocol Last Admin: 05/23/17 17:40 Dose: 1 mg/hr, 1 mls/hr Sodium Chloride (Normal Saline -) 250 mls @ 3,000 mls/hr IV PRN PRN PRN Reason: Hypotension during Dialysis Stop: 05/24/17 14:43 Dobutamine HCl/Dextrose (Dobutamine 250 Mg/D5w -) 250,000 mcg in 250 mls @ 24.889 mls/hr IV TITR RUEL; 5 MCG/KG/MIN PRN Reason: Protocol Last Admin: 05/23/17 16:58 Dose: 5 mcg/kg/min, 24.889 mls/hr Insulin Aspart (Novolog Vial Sliding Scale -) 1 vial SQ ACHS [facility] PRN Reason: Protocol Last Admin: 05/24/17 06:11 Dose: 6 units Midodrine (Proamatine -) 5 mg PO TID-MID [facility] Last Admin: 05/23/17 18:43 Dose: Not Given Mometasone Furoate (Asmanex 220mcg -) 1 puff IH HS [facility] Last Admin: 05/23/17 21:54 Dose: Not Given Multivit/Ca Carb/B Cmplx/FA/Prenat (Nephro-Pancho -) 1 tablet PO DAILY [facility] Last Admin: 05/23/17 11:53 Dose: Not Given Mupirocin (Bactroban Ointment (For Decolonization) -) 1 applic NS BID [facility] Stop: 05/26/17 21:59 Last Admin: 05/23/17 21:54 Dose: 1 applic Witch Peggy/Glycerin (Tucks Pads -) 1 pad TP Q4H [facility] Last Admin: 05/24/17 02:51 Dose: Not Given a/p sepsis- unspecified GI bleed respiratory failure recent CABG-bioMVR/TVR esrd/hd severe PAD with dry gangrene of both legs thrombocytopenia- most likely secondary to sepsis received vancomycin, gentamicin and meropenem continue meropenem f/u cultures f/u vancomycin level (just ordered) Problem List - Problems (1) Sepsis Code(s): A41.9 - SEPSIS, UNSPECIFIED ORGANISM (2) GI bleed Code(s): K92.2 - GASTROINTESTINAL HEMORRHAGE, UNSPECIFIED (3) Respiratory failure Code(s): J96.90 - RESPIRATORY FAILURE, UNSP, UNSP W HYPOXIA OR HYPERCAPNIA (4) Gangrene Code(s): I96 - GANGRENE, NOT ELSEWHERE CLASSIFIED (5) H/O heart valve replacement with bioprosthetic valve Code(s): Z95.3 - PRESENCE OF XENOGENIC HEART VALVE (6) ESRD (end stage renal disease) Code(s): N18.6 - END STAGE RENAL DISEASE
--- NOTE | 2017-05-24 08:28 | PN ---
Progress Note (short form) - Note Progress Note: PULM/CCM, seen and examined in the ICU SUBJECTIVE: -decreased pressors but still on multiple with marginal BP -HD without ultrafiltration yesterdays, no acute needs today -50% Fio2 Active Medications Albuterol/Ipratropium (Duoneb -) 1 amp NEB Q4HPO RUEL Last Admin: 05/24/17 06:15 Dose: 1 amp Calcitriol (Rocaltrol -) 0.25 mcg PO DAILY RUEL Last Admin: 05/23/17 11:53 Dose: Not Given Chlorhexidine Gluconate (Hibiclens For Decolonization -) 1 applic TP HS RUEL Last Admin: 05/23/17 21:54 Dose: 1 applic Gabapentin (Neurontin -) 100 mg PO HS RUEL Last Admin: 05/23/17 21:54 Dose: Not Given Hydrocortisone Sodium Succinate (Solu-Cortef -) 100 mg IVPB Q8H-IV RUEL Last Admin: 05/24/17 01:19 Dose: 100 mg Pantoprazole Sodium 80 mg/ (Sodium Chloride) 100 mls @ 10 mls/hr IVPB Q10H RUEL PRN Reason: 8 MG/HR Last Admin: 05/24/17 06:07 Dose: 10 mls/hr Norepinephrine Bitartrate 8, (000 mcg/ Dextrose) 500 mls @ 18.75 mls/hr IV TITR RUEL; 5 MCG/MIN PRN Reason: Protocol Last Admin: 05/23/17 21:52 Dose: 40 mcg/min, 150 mls/hr Phenylephrine HCl 20,000 mcg/ (Sodium Chloride) 250 mls @ 75 mls/hr IVPB ASDIR RUEL; 100 MCG/MIN PRN Reason: Protocol Last Admin: 05/23/17 12:46 Dose: 200 mcg/min, 150 mls/hr Vasopressin 50 units/ Sodium (Chloride) 100 mls @ 4 mls/hr IVPB ASDIR RUEL; 2 UNITS/HR PRN Reason: Protocol Last Admin: 05/23/17 22:51 Dose: Not Given Meropenem 500 mg/ Dextrose 100 mls @ 200 mls/hr IVPB BID RUEL Last Admin: 05/23/17 22:20 Dose: 200 mls/hr Midazolam HCl 100 mg/ Sodium (Chloride) 100 mls @ 1 mls/hr IVPB TITR RUEL; 1 MG/ HR PRN Reason: Protocol Last Admin: 05/23/17 17:40 Dose: 1 mg/hr, 1 mls/hr Sodium Chloride (Normal Saline -) 250 mls @ 3,000 mls/hr IV PRN PRN PRN Reason: Hypotension during Dialysis Stop: 05/24/17 14:43 Dobutamine HCl/Dextrose (Dobutamine 250 Mg/D5w -) 250,000 mcg in 250 mls @ 24.889 mls/hr IV TITR RUEL; 5 MCG/KG/MIN PRN Reason: Protocol Last Admin: 05/23/17 16:58 Dose: 5 mcg/kg/min, 24.889 mls/hr Insulin Aspart (Novolog Vial Sliding Scale -) 1 vial SQ ACHS RUEL PRN Reason: Protocol Last Admin: 05/24/17 06:11 Dose: 6 units Midodrine (Proamatine -) 5 mg PO TID-MID [facility] Last Admin: 05/23/17 18:43 Dose: Not Given Mometasone Furoate (Asmanex 220mcg -) 1 puff IH HS [facility] Last Admin: 05/23/17 21:54 Dose: Not Given Multivit/Ca Carb/B Cmplx/FA/Prenat (Nephro-Pancho -) 1 tablet PO DAILY [facility] Last Admin: 05/23/17 11:53 Dose: Not Given Mupirocin (Bactroban Ointment (For Decolonization) -) 1 applic NS BID [facility] Stop: 05/26/17 21:59 Last Admin: 05/23/17 21:54 Dose: 1 applic Witch Peggy/Glycerin (Tucks Pads -) 1 pad TP Q4H [facility] Last Admin: 05/24/17 02:51 Dose: Not Given Constitutional: Yes: deeply sedated Eyes: Yes: Conjunctiva Clear, PERRL HENT: Yes: Atraumatic, Normocephalic Neck: Yes: Supple, Trachea Midline. No: Lymphadenopathy Cardiovascular: Yes: Regular Rate and Rhythm, S1, S2 Respiratory: Yes: scattered rhonchi Renal/: Yes: Anuria Breast(s): Yes: WNL Extremities: Yes: Cool, Delayed Capillary Refill, Other (dry gangrene R > L on bilater LE. warm. multiple areas on bilateral LE with various stages of wound healing.) Edema: Yes Edema: LUE: 2+, RUE: 2+, increasing anasarca Peripheral Pulses WNL: poor perfusion, weak pulses bilat LE Integumentary: Yes: Dry gangrene, Skin Tear, Venous Stasis Changes Neurological: Yes: deeply sedated ...Motor Strength: WNL CBCD WBC 7.7 K/mm3 (4.0-10.0) 05/24/17 05:50 RBC 2.97 M/mm3 (3.60-5.2) L 05/24/17 05:50 Hgb 8.4 GM/dL (10.7-15.3) L 05/24/17 05:50 Hct 24.8 % (32.4-45.2) L 05/24/17 05:50 MCV 83.5 fl (80-96) 05/24/17 05:50 MCHC 33.9 g/dl (32.0-36.0) 05/24/17 05:50 RDW 19.5 % (11.6-15.6) H 05/24/17 05:50 Plt Count 45 K/MM3 (134-434) L D 05/23/17 19:30 MPV 9.2 fl (7.5-11.1) 05/23/17 19:30 CMP Sodium 134 mmol/L (136-145) L 05/24/17 05:50 Potassium 3.0 mmol/L (3.5-5.1) L 05/24/17 05:50 Chloride 99 mmol/L (98-107) 05/24/17 05:50 Carbon Dioxide 23 mmol/L (21-32) 05/24/17 05:50 Anion Gap 12 (8-16) 05/24/17 05:50 BUN 29 mg/dL (7-18) H 05/24/17 05:50 Creatinine 3.7 mg/dL (0.55-1.02) H 05/24/17 05:50 Creat Clearance w eGFR 12.58 (>60) 05/24/17 05:50 Random Glucose 213 mg/dL (74-106) H 05/24/17 05:50 Calcium 7.4 mg/dL (8.5-10.1) L 05/24/17 05:50 Total Bilirubin 3.9 mg/dL (0.2-1.0) H D 05/24/17 05:50 AST 60 U/L (15-37) H 05/24/17 05:50 ALT 23 U/L (12-78) 05/24/17 05:50 Alkaline Phosphatase 87 U/L (45-117) 05/24/17 05:50 Total Protein 5.1 g/dl (6.4-8.2) L 05/24/17 05:50 Albumin 1.8 g/dl (3.4-5.0) L 05/24/17 05:50 CARDIAC ENZYMES Creatine Kinase 42 IU/L (26-192) 05/24/17 05:50 Troponin I 1.93 ng/ml (0.00-0.05) H* 05/23/17 05:55 Microbiology 05/21/17 20:00 Blood - Peripheral Venous Blood Culture - Preliminary NO GROWTH OBTAINED AFTER 48 HOURS, INCUBATION TO CONTINUE FOR 3 DAYS. 05/21/17 19:56 Blood - Peripheral Venous Blood Culture - Preliminary NO GROWTH OBTAINED AFTER 48 HOURS, INCUBATION TO CONTINUE FOR 3 DAYS. Problem List - Problems (1) Anemia Code(s): D64.9 - ANEMIA, UNSPECIFIED (2) CAD (coronary artery disease) Code(s): I25.10 - ATHSCL HEART DISEASE OF [place] CORONARY ARTERY W/O ANG PCTRS (3) ESRD (end stage renal disease) Code(s): N18.6 - END STAGE RENAL DISEASE (4) GI bleed Code(s): K92.2 - GASTROINTESTINAL HEMORRHAGE, UNSPECIFIED (5) Hx of CABG Code(s): Z95.1 - PRESENCE OF AORTOCORONARY BYPASS GRAFT Assessment/Plan Septic Shock ESRD on HD CAD AL Valvular heart disease s/p MVR/TVR GIB Acute blood loss anemia Bleeding hemorrhoids PLAN: AC Mode of vent , no weaning at this time A line monitoring PPI drip , to BID tomorrow Normal transfusion thresholds ABX as per ID, on Cindy empiric Hold ASA /coumadin Heme evaluation Midodrine Wean pressors HD Per Renal as hemodynamics allow ICU monitoring Prognosis Thanh CORNEJO [id number] 35min CCT. Critical Care Total Critical Care Time (in minutes): 35 Critical Care Statement: The care of this patient involved high complexity decision making to prevent further life threatening deterioration of the patient 's condition and/or to evaluate & treat vital organ system(s) failure or risk of failure. Problem List - Problems (1) Anemia Code(s): D64.9 - ANEMIA, UNSPECIFIED (2) CAD (coronary artery disease) Code(s): I25.10 - ATHSCL HEART DISEASE OF [place] CORONARY ARTERY W/O ANG PCTRS (3) ESRD (end stage renal disease) Code(s): N18.6 - END STAGE RENAL DISEASE (4) GI bleed Code(s): K92.2 - GASTROINTESTINAL HEMORRHAGE, UNSPECIFIED (5) Hx of CABG Code(s): Z95.1 - PRESENCE OF AORTOCORONARY BYPASS GRAFT
--- NOTE | 2017-05-24 09:09 | PN ---
Progress Note, Physician Chief Complaint: Pt in no distress on the Ventilator She remains on pressors Levophed at 15 in addition to Phenyephrine FiO2 at 50% No GIB over night Had HD yesterday - Current Medication List Current Medications: Active Medications Albuterol/Ipratropium (Duoneb -) 1 amp NEB Q4HPO RUEL Last Admin: 05/24/17 06:15 Dose: 1 amp Calcitriol (Rocaltrol -) 0.25 mcg PO DAILY RUEL Last Admin: 05/23/17 11:53 Dose: Not Given Chlorhexidine Gluconate (Hibiclens For Decolonization -) 1 applic TP HS RUEL Last Admin: 05/23/17 21:54 Dose: 1 applic Gabapentin (Neurontin -) 100 mg PO HS RUEL Last Admin: 05/23/17 21:54 Dose: Not Given Hydrocortisone Sodium Succinate (Solu-Cortef -) 100 mg IVPB Q8H-IV RUEL Last Admin: 05/24/17 01:19 Dose: 100 mg Pantoprazole Sodium 80 mg/ (Sodium Chloride) 100 mls @ 10 mls/hr IVPB Q10H RUEL PRN Reason: 8 MG/HR Last Admin: 05/24/17 06:07 Dose: 10 mls/hr Norepinephrine Bitartrate 8, (000 mcg/ Dextrose) 500 mls @ 18.75 mls/hr IV TITR RUEL; 5 MCG/MIN PRN Reason: Protocol Last Admin: 05/23/17 21:52 Dose: 40 mcg/min, 150 mls/hr Phenylephrine HCl 20,000 mcg/ (Sodium Chloride) 250 mls @ 75 mls/hr IVPB ASDIR RUEL; 100 MCG/MIN PRN Reason: Protocol Last Admin: 05/23/17 12:46 Dose: 200 mcg/min, 150 mls/hr Vasopressin 50 units/ Sodium (Chloride) 100 mls @ 4 mls/hr IVPB ASDIR RUEL; 2 UNITS/HR PRN Reason: Protocol Last Admin: 05/23/17 22:51 Dose: Not Given Meropenem 500 mg/ Dextrose 100 mls @ 200 mls/hr IVPB BID RUEL Last Admin: 05/23/17 22:20 Dose: 200 mls/hr Midazolam HCl 100 mg/ Sodium (Chloride) 100 mls @ 1 mls/hr IVPB TITR RUEL; 1 MG/ HR PRN Reason: Protocol Last Admin: 05/23/17 17:40 Dose: 1 mg/hr, 1 mls/hr Sodium Chloride (Normal Saline -) 250 mls @ 3,000 mls/hr IV PRN PRN PRN Reason: Hypotension during Dialysis Stop: 05/24/17 14:43 Dobutamine HCl/Dextrose (Dobutamine 250 Mg/D5w -) 250,000 mcg in 250 mls @ 24.889 mls/hr IV TITR RUEL; 5 MCG/KG/MIN PRN Reason: Protocol Last Admin: 05/23/17 16:58 Dose: 5 mcg/kg/min, 24.889 mls/hr Insulin Aspart (Novolog Vial Sliding Scale -) 1 vial SQ ACHS RUEL PRN Reason: Protocol Last Admin: 05/24/17 06:11 Dose: 6 units Midodrine (Proamatine -) 5 mg PO TID-MID [facility] Last Admin: 05/23/17 18:43 Dose: Not Given Mometasone Furoate (Asmanex 220mcg -) 1 puff IH HS [facility] Last Admin: 05/23/17 21:54 Dose: Not Given Multivit/Ca Carb/B Cmplx/FA/Prenat (Nephro-Pancho -) 1 tablet PO DAILY [facility] Last Admin: 05/23/17 11:53 Dose: Not Given Mupirocin (Bactroban Ointment (For Decolonization) -) 1 applic NS BID [facility] Stop: 05/26/17 21:59 Last Admin: 05/23/17 21:54 Dose: 1 applic Witch Peggy/Glycerin (Tucks Pads -) 1 pad TP Q4H [facility] Last Admin: 05/24/17 02:51 Dose: Not Given - Objective Vital Signs: Vital Signs Temperature 98.4 F 05/24/17 08:00 Pulse Rate 94 H 05/24/17 08:41 Respiratory Rate 17 05/24/17 08:41 Blood Pressure 117/52 05/24/17 08:41 O2 Sat by Pulse Oximetry (%) 100 05/24/17 08:00 Constitutional: Yes: No Distress Neck: Yes: Other (Left IJ Catheter) Cardiovascular: Yes: S1, S2 Respiratory: Yes: Other (Decreased BS at bases) Gastrointestinal: Yes: Soft, Abdomen, Obese, Distention Extremities: Yes: Other (Gangrene of the feet) Labs: CBC, BMP 05/24/17 05:50 05/24/17 05:50 INR, PTT INR 1.86 (0.82-1.09) H 05/24/17 05:50 Fibrinogen 260.0 mg/dL (238-498) 05/24/17 05:50 - ....Imaging Chest X-ray: Report Reviewed Assessment/Plan Impression 1. ESRD dialyzed 05/23 2. Sepsis 3. GIB 4. Anemia and Thrombocytopenia 5. CAD 6. s/p CABG and Bio AVR/TVR 7. DM 8. PVD with gangrene of the feet Plan Taper pressors and FiO2 as tolerated If K decreases further or arrhythmia develops would replace Next HD tentatively scheduled for 05/26 Abx as per ID Prognosis poor Discussed with the ICU adz worker MAKE UP OPERATOR HELPER Dr Barbosa
[2017-05-24 09:28] LABS: MEAN PLT VOLUME 9.4 fl (7.5-11.1); PLATELET COUNT 41 K/MM3 (134-434)
[2017-05-24 09:29] LABS: PLATELET ESTIMATE MARKEDLY DECREASED
--- NOTE | 2017-05-24 10:59 | PN ---
Progress Note, Physician Chief Complaint: events noted intubated , on multiple pressors tapering pressors - Current Medication List Current Medications: Active Medications Albuterol/Ipratropium (Duoneb -) 1 amp NEB Q4HPO RUEL Last Admin: 05/24/17 06:15 Dose: 1 amp Calcitriol (Rocaltrol -) 0.25 mcg PO DAILY RUEL Last Admin: 05/23/17 11:53 Dose: Not Given Chlorhexidine Gluconate (Hibiclens For Decolonization -) 1 applic TP HS RUEL Last Admin: 05/23/17 21:54 Dose: 1 applic Gabapentin (Neurontin -) 100 mg PO HS RUEL Last Admin: 05/23/17 21:54 Dose: Not Given Hydrocortisone Sodium Succinate (Solu-Cortef -) 100 mg IVPB Q8H-IV RUEL Last Admin: 05/24/17 01:19 Dose: 100 mg Pantoprazole Sodium 80 mg/ (Sodium Chloride) 100 mls @ 10 mls/hr IVPB Q10H RUEL PRN Reason: 8 MG/HR Last Admin: 05/24/17 06:07 Dose: 10 mls/hr Norepinephrine Bitartrate 8, (000 mcg/ Dextrose) 500 mls @ 18.75 mls/hr IV TITR RUEL; 5 MCG/MIN PRN Reason: Protocol Last Admin: 05/23/17 21:52 Dose: 40 mcg/min, 150 mls/hr Phenylephrine HCl 20,000 mcg/ (Sodium Chloride) 250 mls @ 75 mls/hr IVPB ASDIR RUEL; 100 MCG/MIN PRN Reason: Protocol Last Admin: 05/23/17 12:46 Dose: 200 mcg/min, 150 mls/hr Vasopressin 50 units/ Sodium (Chloride) 100 mls @ 4 mls/hr IVPB ASDIR RUEL; 2 UNITS/HR PRN Reason: Protocol Last Admin: 05/23/17 22:51 Dose: Not Given Meropenem 500 mg/ Dextrose 100 mls @ 200 mls/hr IVPB BID RUEL Last Admin: 05/23/17 22:20 Dose: 200 mls/hr Midazolam HCl 100 mg/ Sodium (Chloride) 100 mls @ 1 mls/hr IVPB TITR RUEL; 1 MG/ HR PRN Reason: Protocol Last Admin: 05/23/17 17:40 Dose: 1 mg/hr, 1 mls/hr Sodium Chloride (Normal Saline -) 250 mls @ 3,000 mls/hr IV PRN PRN PRN Reason: Hypotension during Dialysis Stop: 05/24/17 14:43 Dobutamine HCl/Dextrose (Dobutamine 250 Mg/D5w -) 250,000 mcg in 250 mls @ 24.889 mls/hr IV TITR RUEL; 5 MCG/KG/MIN PRN Reason: Protocol Last Admin: 05/23/17 16:58 Dose: 5 mcg/kg/min, 24.889 mls/hr Insulin Aspart (Novolog Vial Sliding Scale -) 1 vial SQ ACHS RUEL PRN Reason: Protocol Last Admin: 05/24/17 06:11 Dose: 6 units Midodrine (Proamatine -) 5 mg PO TID-MID [facility] Last Admin: 05/23/17 18:43 Dose: Not Given Mometasone Furoate (Asmanex 220mcg -) 1 puff IH HS [facility] Last Admin: 05/23/17 21:54 Dose: Not Given Multivit/Ca Carb/B Cmplx/FA/Prenat (Nephro-Pancho -) 1 tablet PO DAILY [facility] Last Admin: 05/23/17 11:53 Dose: Not Given Mupirocin (Bactroban Ointment (For Decolonization) -) 1 applic NS BID [facility] Stop: 05/26/17 21:59 Last Admin: 05/23/17 21:54 Dose: 1 applic Witch Peggy/Glycerin (Tucks Pads -) 1 pad TP Q4H [facility] Last Admin: 05/24/17 02:51 Dose: Not Given - Objective Vital Signs: Vital Signs Temperature 98.4 F 05/24/17 08:00 Pulse Rate 96 H 05/24/17 10:00 Respiratory Rate 20 05/24/17 10:00 Blood Pressure 122/59 05/24/17 10:00 O2 Sat by Pulse Oximetry (%) 100 05/24/17 09:00 Constitutional: Yes: Other (anasarca) Cardiovascular: Yes: Regular Rate and Rhythm Respiratory: Yes: Mechanically Ventilated Gastrointestinal: Yes: Soft, Hypoactive Bowel Sounds. No: Tenderness Extremities: Yes: Other (gangrene of feet B/L, LEFT RING FINGER) Edema: Yes Labs: CBC, BMP 05/24/17 05:50 05/24/17 05:50 INR, PTT INR 1.86 (0.82-1.09) H 05/24/17 05:50 Fibrinogen 260.0 mg/dL (238-498) 05/24/17 05:50 Problem List - Problems (1) Anemia Code(s): D64.9 - ANEMIA, UNSPECIFIED (2) CAD (coronary artery disease) Code(s): I25.10 - ATHSCL HEART DISEASE OF [place] CORONARY ARTERY W/O ANG PCTRS (3) Coagulopathy Code(s): D68.9 - COAGULATION DEFECT, UNSPECIFIED (4) ESRD (end stage renal disease) Code(s): N18.6 - END STAGE RENAL DISEASE (5) GI bleed Code(s): K92.2 - GASTROINTESTINAL HEMORRHAGE, UNSPECIFIED (6) Gangrene Code(s): I96 - GANGRENE, NOT ELSEWHERE CLASSIFIED (7) H/O heart valve replacement with bioprosthetic valve Code(s): Z95.3 - PRESENCE OF XENOGENIC HEART VALVE (8) Hx of CABG Code(s): Z95.1 - PRESENCE OF AORTOCORONARY BYPASS GRAFT (9) Lower GI bleed Code(s): K92.2 - GASTROINTESTINAL HEMORRHAGE, UNSPECIFIED (10) Respiratory failure Code(s): J96.90 - RESPIRATORY FAILURE, UNSP, UNSP W HYPOXIA OR HYPERCAPNIA (11) Sepsis Code(s): A41.9 - SEPSIS, UNSPECIFIED ORGANISM Assessment/Plan A/P Hypovolemic shock GI bleeding ESRD on HD CAD , s/p CABG, MV and TV replacement AMS Gangrene of rt foot and left ring finger -- on pressor support -- Spoke with pt's children in waiting room in detail -- iv antibiotics -- platelets low due to sepsis -- all consults noted -- may need platelets if lower -- condition critical
[2017-05-24] MEDS ORDERED: PT OWN MED DRAWER 7, Y5N ONE (11:01)
[2017-05-24] MEDS: MEROPENEM 500 MG in DEXTROSE 5%-WATER - 100 ML IVPB SCH ×2 (11:02→21:50)
[2017-05-24] MEDS: MUPIROCIN 2% TOPICAL OINTMENT FOR DECOLONIZATION NS SCH ×2 (11:03→21:51)
[2017-05-24] MEDS: VITAMIN B COMP W-C 1 EA TABLET PO SCH (11:04)
[2017-05-24] MEDS: MIDODRINE HCL 5 MG TABLET PO SCH ×3 (11:04→17:23)
[2017-05-24] MEDS: CALCITRIOL 0.25 MCG CAPSULE (FP) PO SCH (11:04)
[2017-05-24] MEDS ORDERED: NOREPINEPHRINE BITARTRATE 4 MG/4 ML ML IV ONE (11:59)
[2017-05-24] MEDS: DOBUTAMINE 250 MG/D5W - 250,000 MCG/250 ML INFUS.BAG IV SCH ×3 (12:03→21:37)
[2017-05-24] MEDS: PHENYLEPHRINE HCL 20,000 MCG in SODIUM CHLORIDE 248 ML IVPB SCH (13:25)
--- NOTE | 2017-05-24 14:53 | PN ---
Progress Note (short form) - Note Progress Note: chart reviewed not much change, remains intubated/on pressors CBC: dropping Platelet count O/E: Constitutional: Yes: Other (intubated/mechanically vented .) HENT: Yes: Other (noted bleeding at the ETT site) Cardiovascular: Yes: Tachycardia Respiratory: Yes: Mechanically Ventilated Gastrointestinal: Yes: Abdomen, Obese Extremities: Yes: Other (Bilateral gangrenous lower extremity) Last Vital Signs Temp Pulse Resp BP Pulse Ox 98.2 F 94 H 16 118/51 100 05/24/17 13:00 05/24/17 14:02 05/24/17 14:36 05/24/17 14:02 05/24/17 12:17 CBC, BMP 05/24/17 05:50 05/24/17 05:50 Current Medications Generic Name Dose Route Start Last Admin Trade Name Freq PRN Reason Stop Dose Admin Albuterol/Ipratropium 1 amp 05/21/17 18:00 05/24/17 14:30 Duoneb - NEB 1 amp Q4HPO RUEL Administration Calcitriol 0.25 mcg 05/23/17 10:45 05/24/17 11:04 Rocaltrol - PO Not Given DAILY RUEL Chlorhexidine Gluconate 1 applic 05/21/17 22:00 05/23/17 21:54 Hibiclens For Decolonization - TP 1 applic HS RUEL Administration Gabapentin 100 mg 05/22/17 22:00 05/23/17 21:54 Neurontin - PO Not Given HS RUEL Hydrocortisone Sodium Succinate 100 mg 05/23/17 18:00 05/24/17 11:02 Solu-Cortef - IVPB 100 mg Q8H-IV RUEL Administration Pantoprazole Sodium 80 mg/ 100 mls @ 10 mls/hr 05/21/17 18:00 05/24/17 06:07 Sodium Chloride IVPB 10 mls/hr Q10H RUEL Administration 8 MG/HR Norepinephrine Bitartrate 8, 500 mls @ 18.75 mls/hr 05/21/17 16:45 05/24/17 14:02 000 mcg/ Dextrose IV 12 mcg/min TITR RUEL 45 mls/hr Protocol Titration 5 MCG/MIN Phenylephrine HCl 20,000 mcg/ 250 mls @ 75 mls/hr 05/22/17 13:00 05/24/17 13: 25 Sodium Chloride IVPB 50 mcg/min ASDIR RUEL 37.5 mls/hr Protocol Administration 100 MCG/MIN Vasopressin 50 units/ Sodium 100 mls @ 4 mls/hr 05/22/17 22:30 05/23/17 22:51 Chloride IVPB Not Given ASDIR RUEL Protocol 2 UNITS/HR Meropenem 500 mg/ Dextrose 100 mls @ 200 mls/hr 05/23/17 08:00 05/24/17 11:02 IVPB 200 mls/hr BID RULE Administration Midazolam HCl 100 mg/ Sodium 100 mls @ 1 mls/hr 05/23/17 12:00 05/23/17 17:40 Chloride IVPB 1 mg/hr TITR RUEL 1 mls/hr Protocol Administration 1 MG/HR Dobutamine HCl/Dextrose 250,000 mcg in 250 mls @ 24.889 mls/hr 05/23/17 16:45 05/24/17 12:03 Dobutamine 250 Mg/D5w - IV 5 mcg/kg/min TITR RUEL 24.889 mls/hr Protocol Administration 5 MCG/KG/MIN Insulin Aspart 1 vial 05/22/17 22:00 05/24/17 11:51 Novolog Vial Sliding Scale - SQ 4 units ACHS RUEL Administration Protocol Midodrine 5 mg 05/21/17 23:15 05/24/17 14:01 Proamatine - PO Not Given TID-MID RUEL Mometasone Furoate 1 puff 05/21/17 22:00 05/23/17 21:54 Asmanex 220mcg - IH Not Given HS RUEL Multivit/Ca Carb/B Cmplx/FA/Prenat 1 tablet 05/22/17 10:00 05/24/17 11:04 Nephro-Pancho - PO Not Given DAILY RUEL Mupirocin 1 applic 05/21/17 22:00 05/24/17 11:03 Bactroban Ointment (For Decolonization) - NS 05/26/17 21:59 1 applic BID RUEL Administration Witch Peggy/Glycerin 1 pad 05/21/17 19:15 05/24/17 11:56 Tucks Pads - TP 1 pad Q4H RUEL Administration Coagulopathy/Thrombocytopenia: multi-factorial s/p FFP/ddAVP/Vit K if bleeding ,will need platelets/FFP repeat CBC now. Guarded prognosis rest per ICU Problem List - Problems (1) Coagulopathy Code(s): D68.9 - COAGULATION DEFECT, UNSPECIFIED (2) Gangrene Code(s): I96 - GANGRENE, NOT ELSEWHERE CLASSIFIED (3) GI bleed Code(s): K92.2 - GASTROINTESTINAL HEMORRHAGE, UNSPECIFIED (4) Hx of CABG Code(s): Z95.1 - PRESENCE OF AORTOCORONARY BYPASS GRAFT
[2017-05-24 17:15] LABS: BASO % 0.6 % (0-2.0); EOS % 0.1 % (0-4.5); HEMATOCRIT 25.3 % (32.4-45.2); HEMOGLOBIN 8.4 GM/dL (10.7-15.3); LYMPH % 2.3 % (8-40); MCH 27.9 pg (25.7-33.7); MCHC 33.2 g/dl (32.0-36.0); MEAN CELL VOLUME 84.2 fl (80-96); MEAN PLT VOLUME 8.7 fl (7.5-11.1); MONO % 5.3 % (3.8-10.2); NEUT % 91.7 % (42.8-82.8); PLATELET COUNT 38 K/MM3 (134-434); RDW 20.3 % (11.6-15.6); WHITE BLOOD COUNT 7.8 K/mm3 (4.0-10.0)
[2017-05-24 17:38] LABS: BILIRUBIN,DIRECT 2.1 mg/dL (0.0-0.2)
[2017-05-24] MEDS: NOREPINEPHRINE BITARTRATE 8,000 MCG in DEXTROSE 5%-WATER - 492 ML IV SCH (18:38)
[2017-05-24] MEDS: CHLORHEXIDINE GLUCONATE 4% CLEANSER FOR DECOLONIZATION TP SCH (21:52)
[2017-05-25] MEDS: MIDAZOLAM 100 MG in SODIUM CHLORIDE 100 ML IVPB SCH ×2 (02:00→15:57)
[2017-05-25] MEDS: HYDROCORTISONE SOD SUCCINATE 100 MG/2 ML VIAL IVPB SCH ×3 (02:00→17:49)
[2017-05-25] MEDS: ALBUTEROL SO4 2.5/IPRATROPIUM 0.5 INH SOL 3 ML VIAL.NEB. NEB SCH ×6 (02:15→21:54)
[2017-05-25] MEDS: INSULIN SLIDING SCALE (NOVOLOG) 1 VIAL SQ SCH ×6 (06:05→22:13)
[2017-05-25] MEDS: MOMETASONE FUROATE 220 MCG/IH INHALER IH SCH ×2 (06:12→22:10)
[2017-05-25] MEDS: GABAPENTIN 100 MG CAPSULE (FP) PO SCH ×2 (06:12→22:12)
[2017-05-25] MEDS: WITCH HAZEL 50% (TUCKS) 40 PAD/JAR PAD TP SCH ×5 (06:13→19:30)
[2017-05-25] MEDS: VASOPRESSIN 50 UNITS in SODIUM CHLORIDE 97.5 ML IVPB SCH ×2 (06:31→22:14)
[2017-05-25] MEDS: PANTOPRAZOLE SODIUM 80 MG in SODIUM CHLORIDE 100 ML IVPB SCH (06:57)
[2017-05-25 08:20] LABS: HEMATOCRIT 25.7 % (32.4-45.2); HEMOGLOBIN 8.6 GM/dL (10.7-15.3); MCH 27.8 pg (25.7-33.7); MCHC 33.3 g/dl (32.0-36.0); MEAN CELL VOLUME 83.6 fl (80-96); MEAN PLT VOLUME 8.4 fl (7.5-11.1); RBC 3.08 M/mm3 (3.60-5.2); RDW 21.8 % (11.6-15.6); WHITE BLOOD COUNT 7.6 K/mm3 (4.0-10.0)
[2017-05-25 08:32] LABS: PLATELET COUNT 29 K/MM3 (134-434)
--- NOTE | 2017-05-25 09:25 | PN ---
Progress Note (short form) - Note Progress Note: Seen and examined in the ICU afebrile Remains on NE 12mcg/kg/min, Dobutamine 5mcg/kg/min and Stress steroids Weaned FiO2 40% Cont to have significant thrombocytopenia Current Medications Albuterol/Ipratropium (Duoneb -) 1 amp NEB Q4HPO RUEL Last Admin: 05/25/17 06:05 Dose: 1 amp Calcitriol (Rocaltrol -) 0.25 mcg PO DAILY [facility] Last Admin: 05/24/17 11:04 Dose: Not Given Chlorhexidine Gluconate (Hibiclens For Decolonization -) 1 applic TP HS [facility] Last Admin: 05/24/17 21:52 Dose: 1 applic Gabapentin (Neurontin -) 100 mg PO HS [facility] Last Admin: 05/25/17 06:12 Dose: Not Given Hydrocortisone Sodium Succinate (Solu-Cortef -) 100 mg IVPB Q8H-IV [facility] Last Admin: 05/25/17 02:00 Dose: 100 mg Pantoprazole Sodium 80 mg/ (Sodium Chloride) 100 mls @ 10 mls/hr IVPB Q10H RUEL PRN Reason: 8 MG/HR Last Admin: 05/25/17 06:57 Dose: Not Given Norepinephrine Bitartrate 8, (000 mcg/ Dextrose) 500 mls @ 18.75 mls/hr IV TITR RUEL; 5 MCG/MIN PRN Reason: Protocol Last Admin: 05/24/17 18:38 Dose: 12 mcg/min, 45 mls/hr Phenylephrine HCl 20,000 mcg/ (Sodium Chloride) 250 mls @ 75 mls/hr IVPB ASDIR RUEL; 100 MCG/MIN PRN Reason: Protocol Last Titration: 05/24/17 17:00 Dose: 0 mcg/min, 0 mls/hr Vasopressin 50 units/ Sodium (Chloride) 100 mls @ 4 mls/hr IVPB ASDIR RUEL; 2 UNITS/HR PRN Reason: Protocol Last Admin: 05/25/17 06:31 Dose: Not Given Meropenem 500 mg/ Dextrose 100 mls @ 200 mls/hr IVPB BID [facility] Last Admin: 05/24/17 21:50 Dose: 200 mls/hr Midazolam HCl 100 mg/ Sodium (Chloride) 100 mls @ 1 mls/hr IVPB TITR RUEL; 1 MG/ HR PRN Reason: Protocol Last Admin: 05/25/17 02:00 Dose: 2 mg/hr, 2 mls/hr Dobutamine HCl/Dextrose (Dobutamine 250 Mg/D5w -) 250,000 mcg in 250 mls @ 24.889 mls/hr IV TITR RUEL; 5 MCG/KG/MIN PRN Reason: Protocol Last Admin: 05/24/17 21:37 Dose: 5 mcg/kg/min, 24.889 mls/hr Insulin Aspart (Novolog Vial Sliding Scale -) 1 vial SQ ACHS RUEL PRN Reason: Protocol Last Admin: 05/25/17 06:09 Dose: 2 units Midodrine (Proamatine -) 5 mg PO TID-MID [facility] Last Admin: 05/24/17 17:23 Dose: Not Given Mometasone Furoate (Asmanex 220mcg -) 1 puff IH HS [facility] Last Admin: 05/25/17 06:12 Dose: Not Given Multivit/Ca Carb/B Cmplx/FA/Prenat (Nephro-Pancho -) 1 tablet PO DAILY [facility] Last Admin: 05/24/17 11:04 Dose: Not Given Mupirocin (Bactroban Ointment (For Decolonization) -) 1 applic NS BID [facility] Stop: 05/26/17 21:59 Last Admin: 05/24/17 21:51 Dose: 1 applic Witch Peggy/Glycerin (Tucks Pads -) 1 pad TP Q4H [facility] Last Admin: 05/25/17 06:56 Dose: Not Given Vital Signs Period Temp Pulse Resp BP Sys/Ceron Pulse Ox Last 24 Hr 96 F-98.2 F 89-99 14-20 91-122/51-59 98-100 Intake & Output 05/22/17 05/23/17 05/24/17 05/25/17 23:59 23:59 23:59 23:59 Intake Total 2120 8207 1495 408 Balance 2120 8207 1495 408 Weight 82.962 kg 82.962 kg 87.044 kg 88.405 kg General: intubated sedated HEENT: PERRL, TLC in place CV: irr irr s1 s2 Pulm: crackles in bases Abd: soft, +abd wall edema Ext: warm, +4 edema, multiple necrotic digits Neuro: RASS -3 CBC, BMP 05/25/17 05:20 BMP: pending No CXR this AM Microbiology 05/23/17 08:20 Blood - Central Line Blood Culture - Preliminary NO GROWTH OBTAINED AFTER 48 HOURS, INCUBATION TO CONTINUE FOR 3 DAYS. 05/23/17 08:20 Blood - Central Line Blood Culture - Preliminary NO GROWTH OBTAINED AFTER 48 HOURS, INCUBATION TO CONTINUE FOR 3 DAYS. 05/21/17 20:00 Blood - Peripheral Venous Blood Culture - Preliminary NO GROWTH OBTAINED AFTER 72 HOURS, INCUBATION TO CONTINUE FOR 2 DAYS. 05/21/17 19:56 Blood - Peripheral Venous Blood Culture - Preliminary NO GROWTH OBTAINED AFTER 72 HOURS, INCUBATION TO CONTINUE FOR 2 DAYS. Assessment/Plan Septic Shock ESRD on HD CAD [place] Valvular heart disease s/p MVR/TVR GIB Acute blood loss anemia Bleeding hemorrhoids PLAN: AC Mode of vent , no weaning at this time 02 for sat >92% Cont A-line monitoring Pressors for MAP 65-75 Dobutamine for inotropic support Cont stress steroids PPI BID tomorrow Normal transfusion thresholds. Hgb >7, Plt >20 ABX as per ID, on Cindy empiric Renal dose medications iHD per renal Hold ASA /coumadin Heme evaluation Midodrine ICU monitoring Prognosis poor, palliative care consulted Chante ACNP Pulm/CCM CCT: 35m
--- NOTE | 2017-05-25 09:25 | PN ---
Progress Note, Physician Chief Complaint: off Phenylephrine Levophed tapered on Dobutamine Intubated Versed increased as she was biting the tube - Current Medication List Current Medications: Active Medications Albuterol/Ipratropium (Duoneb -) 1 amp NEB Q4HPO [facility] Last Admin: 05/25/17 06:05 Dose: 1 amp Calcitriol (Rocaltrol -) 0.25 mcg PO DAILY [facility] Last Admin: 05/24/17 11:04 Dose: Not Given Chlorhexidine Gluconate (Hibiclens For Decolonization -) 1 applic TP HS [facility] Last Admin: 05/24/17 21:52 Dose: 1 applic Gabapentin (Neurontin -) 100 mg PO HS [facility] Last Admin: 05/25/17 06:12 Dose: Not Given Hydrocortisone Sodium Succinate (Solu-Cortef -) 100 mg IVPB Q8H-IV [facility] Last Admin: 05/25/17 02:00 Dose: 100 mg Pantoprazole Sodium 80 mg/ (Sodium Chloride) 100 mls @ 10 mls/hr IVPB Q10H [facility] PRN Reason: 8 MG/HR Last Admin: 05/25/17 06:57 Dose: Not Given Norepinephrine Bitartrate 8, (000 mcg/ Dextrose) 500 mls @ 18.75 mls/hr IV TITR RUEL; 5 MCG/MIN PRN Reason: Protocol Last Admin: 05/24/17 18:38 Dose: 12 mcg/min, 45 mls/hr Phenylephrine HCl 20,000 mcg/ (Sodium Chloride) 250 mls @ 75 mls/hr IVPB ASDIR RUEL; 100 MCG/MIN PRN Reason: Protocol Last Titration: 05/24/17 17:00 Dose: 0 mcg/min, 0 mls/hr Vasopressin 50 units/ Sodium (Chloride) 100 mls @ 4 mls/hr IVPB ASDIR RUEL; 2 UNITS/HR PRN Reason: Protocol Last Admin: 05/25/17 06:31 Dose: Not Given Meropenem 500 mg/ Dextrose 100 mls @ 200 mls/hr IVPB BID RU[facility] Last Admin: 05/24/17 21:50 Dose: 200 mls/hr Midazolam HCl 100 mg/ Sodium (Chloride) 100 mls @ 1 mls/hr IVPB TITR RUEL; 1 MG/ HR PRN Reason: Protocol Last Admin: 05/25/17 02:00 Dose: 2 mg/hr, 2 mls/hr Dobutamine HCl/Dextrose (Dobutamine 250 Mg/D5w -) 250,000 mcg in 250 mls @ 24.889 mls/hr IV TITR RUEL; 5 MCG/KG/MIN PRN Reason: Protocol Last Admin: 05/24/17 21:37 Dose: 5 mcg/kg/min, 24.889 mls/hr Insulin Aspart (Novolog Vial Sliding Scale -) 1 vial SQ ACHS RU[facility] PRN Reason: Protocol Last Admin: 05/25/17 06:09 Dose: 2 units Midodrine (Proamatine -) 5 mg PO TID-MID [facility] Last Admin: 05/24/17 17:23 Dose: Not Given Mometasone Furoate (Asmanex 220mcg -) 1 puff IH HS [facility] Last Admin: 05/25/17 06:12 Dose: Not Given Multivit/Ca Carb/B Cmplx/FA/Prenat (Nephro-Pancho -) 1 tablet PO DAILY [facility] Last Admin: 05/24/17 11:04 Dose: Not Given Mupirocin (Bactroban Ointment (For Decolonization) -) 1 applic NS BID [facility] Stop: 05/26/17 21:59 Last Admin: 05/24/17 21:51 Dose: 1 applic Witch Peggy/Glycerin (Tucks Pads -) 1 pad TP Q4H [facility] Last Admin: 05/25/17 06:56 Dose: Not Given - Objective Vital Signs: Vital Signs Temperature 96 F L 05/25/17 02:00 Pulse Rate 93 H 05/25/17 08:00 Respiratory Rate 15 05/25/17 08:15 Blood Pressure 106/58 05/25/17 08:00 O2 Sat by Pulse Oximetry (%) 98 05/25/17 08:15 Constitutional: Yes: No Distress Cardiovascular: Yes: Regular Rate and Rhythm Respiratory: Yes: Diminished, Mechanically Ventilated Gastrointestinal: Yes: Normal Bowel Sounds, Soft, Hypoactive Bowel Sounds. No: Tenderness Extremities: Yes: Other (gangrene B/L feet) Edema: Yes Labs: CBC, BMP 05/25/17 05:20 INR, PTT INR 1.86 (0.82-1.09) H 05/24/17 05:50 Fibrinogen 260.0 mg/dL (238-498) 05/24/17 05:50 Problem List - Problems (1) Anemia Code(s): D64.9 - ANEMIA, UNSPECIFIED (2) CAD (coronary artery disease) Code(s): I25.10 - ATHSCL HEART DISEASE OF [place] CORONARY ARTERY W/O ANG PCTRS (3) Coagulopathy Code(s): D68.9 - COAGULATION DEFECT, UNSPECIFIED (4) ESRD (end stage renal disease) Code(s): N18.6 - END STAGE RENAL DISEASE (5) GI bleed Code(s): K92.2 - GASTROINTESTINAL HEMORRHAGE, UNSPECIFIED (6) Gangrene Code(s): I96 - GANGRENE, NOT ELSEWHERE CLASSIFIED (7) H/O heart valve replacement with bioprosthetic valve Code(s): Z95.3 - PRESENCE OF XENOGENIC HEART VALVE (8) Hx of CABG Code(s): Z95.1 - PRESENCE OF AORTOCORONARY BYPASS GRAFT (9) Lower GI bleed Code(s): K92.2 - GASTROINTESTINAL HEMORRHAGE, UNSPECIFIED (10) Respiratory failure Code(s): J96.90 - RESPIRATORY FAILURE, UNSP, UNSP W HYPOXIA OR HYPERCAPNIA (11) Sepsis Code(s): A41.9 - SEPSIS, UNSPECIFIED ORGANISM Assessment/Plan A/P Hypovolemic shock GI bleeding ESRD on HD CAD , s/p CABG, MV and TV replacement AMS Gangrene of rt foot and left ring finger -- on pressor support -- blood cultures negative -- iv antibiotics -- platelets low due to sepsis -- all consults noted -- may need platelets if lower -- condition critical
--- NOTE | 2017-05-25 09:45 | PN ---
Progress Note (short form) - Note Progress Note: remains intubated sedated pressors being tapered no bleeding noted Vital Signs Period Temp Pulse Resp BP Sys/Ceron Pulse Ox Last 24 Hr 97 F-98.8 F 88-107 14-25 41-136/26-92 96-100 intubated left subclavian CVP left arm avf with ?revision with sutures right groin with bianca intact ext-bilateral foot gangrene-dry cor-rrr sternal wound intact lungs decreased bs at bases abd soft,nt CBC, BMP 05/25/17 05:20 Microbiology 05/21/17 20:00 Blood - Peripheral Venous Blood Culture - Preliminary NO GROWTH OBTAINED AFTER 48 HOURS, INCUBATION TO CONTINUE FOR 3 DAYS. 05/21/17 19:56 Blood - Peripheral Venous Blood Culture - Preliminary NO GROWTH OBTAINED AFTER 48 HOURS, INCUBATION TO CONTINUE FOR 3 DAYS. vanco level 23 Current Medications Albuterol/Ipratropium (Duoneb -) 1 amp NEB Q4HPO [facility] Last Admin: 05/25/17 06:05 Dose: 1 amp Calcitriol (Rocaltrol -) 0.25 mcg PO DAILY [facility] Last Admin: 05/24/17 11:04 Dose: Not Given Chlorhexidine Gluconate (Hibiclens For Decolonization -) 1 applic TP HS [facility] Last Admin: 05/24/17 21:52 Dose: 1 applic Gabapentin (Neurontin -) 100 mg PO HS [facility] Last Admin: 05/25/17 06:12 Dose: Not Given Hydrocortisone Sodium Succinate (Solu-Cortef -) 100 mg IVPB Q8H-IV [facility] Last Admin: 05/25/17 02:00 Dose: 100 mg Norepinephrine Bitartrate 8, (000 mcg/ Dextrose) 500 mls @ 18.75 mls/hr IV TITR RUEL; 5 MCG/MIN PRN Reason: Protocol Last Admin: 05/24/17 18:38 Dose: 12 mcg/min, 45 mls/hr Phenylephrine HCl 20,000 mcg/ (Sodium Chloride) 250 mls @ 75 mls/hr IVPB ASDIR RUEL; 100 MCG/MIN PRN Reason: Protocol Last Titration: 05/24/17 17:00 Dose: 0 mcg/min, 0 mls/hr Vasopressin 50 units/ Sodium (Chloride) 100 mls @ 4 mls/hr IVPB ASDIR RUEL; 2 UNITS/HR PRN Reason: Protocol Last Admin: 05/25/17 06:31 Dose: Not Given Meropenem 500 mg/ Dextrose 100 mls @ 200 mls/hr IVPB BID [facility] Last Admin: 05/24/17 21:50 Dose: 200 mls/hr Midazolam HCl 100 mg/ Sodium (Chloride) 100 mls @ 1 mls/hr IVPB TITR RUEL; 1 MG/ HR PRN Reason: Protocol Last Admin: 05/25/17 02:00 Dose: 2 mg/hr, 2 mls/hr Dobutamine HCl/Dextrose (Dobutamine 250 Mg/D5w -) 250,000 mcg in 250 mls @ 24.889 mls/hr IV TITR RUEL; 5 MCG/KG/MIN PRN Reason: Protocol Last Admin: 05/24/17 21:37 Dose: 5 mcg/kg/min, 24.889 mls/hr Insulin Aspart (Novolog Vial Sliding Scale -) 1 vial SQ ACHS [facility] PRN Reason: Protocol Last Admin: 05/25/17 06:09 Dose: 2 units Midodrine (Proamatine -) 5 mg PO TID-MID [facility] Last Admin: 05/24/17 17:23 Dose: Not Given Mometasone Furoate (Asmanex 220mcg -) 1 puff IH HS [facility] Last Admin: 05/25/17 06:12 Dose: Not Given Multivit/Ca Carb/B Cmplx/FA/Prenat (Nephro-Pancho -) 1 tablet PO DAILY [facility] Last Admin: 05/24/17 11:04 Dose: Not Given Mupirocin (Bactroban Ointment (For Decolonization) -) 1 applic NS BID [facility] Stop: 05/26/17 21:59 Last Admin: 05/24/17 21:51 Dose: 1 applic Pantoprazole Sodium (Protonix Iv) 40 mg IVPUSH BID [facility] Witch Peggy/Glycerin (Tucks Pads -) 1 pad TP Q4H [facility] Last Admin: 05/25/17 06:56 Dose: Not Given a/p sepsis- unspecified GI bleed respiratory failure recent CABG-bioMVR/TVR esrd/hd severe PAD with dry gangrene of both legs thrombocytopenia- most likely secondary to sepsis received vancomycin, gentamicin and meropenem continue meropenem f/u cultures-negative to date hemodymics a bit improved, pressors being tapered vanco level 23 overall prognosis is poor Problem List - Problems (1) Sepsis Code(s): A41.9 - SEPSIS, UNSPECIFIED ORGANISM (2) GI bleed Code(s): K92.2 - GASTROINTESTINAL HEMORRHAGE, UNSPECIFIED (3) Respiratory failure Code(s): J96.90 - RESPIRATORY FAILURE, UNSP, UNSP W HYPOXIA OR HYPERCAPNIA (4) Gangrene Code(s): I96 - GANGRENE, NOT ELSEWHERE CLASSIFIED (5) H/O heart valve replacement with bioprosthetic valve Code(s): Z95.3 - PRESENCE OF XENOGENIC HEART VALVE (6) ESRD (end stage renal disease) Code(s): N18.6 - END STAGE RENAL DISEASE
[2017-05-25] MEDS: CALCITRIOL 0.25 MCG CAPSULE (FP) PO SCH (10:49)
[2017-05-25] MEDS: VITAMIN B COMP W-C 1 EA TABLET PO SCH (10:49)
[2017-05-25] MEDS: MIDODRINE HCL 5 MG TABLET PO SCH ×3 (10:49→18:26)
[2017-05-25] MEDS: MEROPENEM 500 MG in DEXTROSE 5%-WATER - 100 ML IVPB SCH ×2 (10:58→22:10)
[2017-05-25] MEDS: MUPIROCIN 2% TOPICAL OINTMENT FOR DECOLONIZATION NS SCH ×2 (10:59→22:20)
[2017-05-25] MEDS: PANTOPRAZOLE SODIUM 40 MG VIAL IVPUSH SCH ×2 (10:59→22:19)
[2017-05-25 11:09] LABS: BLOOD UREA NITROGEN 35 mg/dL (7-18)
[2017-05-25 11:10] LABS: ANION GAP 13 (8-16); CALCIUM 8.3 mg/dL (8.5-10.1); CHLORIDE 98 mmol/L (98-107); CO2 24 mmol/L (21-32); PHOSPHOROUS 3.7 mg/dL (2.5-4.9); POTASSIUM 3.1 mmol/L (3.5-5.1); SODIUM 135 mmol/L (136-145)
[2017-05-25 11:11] LABS: ALBUMIN 2.1 g/dl (3.4-5.0); BILIRUBIN,DIRECT 0.7 mg/dL (0.0-0.2); BILIRUBIN,TOTAL 3.2 mg/dL (0.2-1.0); MAGNESIUM 1.7 mg/dL (1.8-2.4); TOT PROT 5.1 g/dl (6.4-8.2)
[2017-05-25 11:12] LABS: ALK PHOS 89 U/L (45-117); SGOT/AST 50 U/L (15-37); SGPT/ALT 25 U/L (12-78)
--- NOTE | 2017-05-25 11:12 | PN ---
Progress Note, Physician Chief Complaint: Pt in no distress and remains on the Ventilator with FiO2 of 40% Now off Phenyephrine and Levophed decreased to 12 Dobutamine at 5 No GIB over night Telemetry shows an irregular rhythm- A Fib Not on IV hepatin given the severe thrombocytopenia - Current Medication List Current Medications: Active Medications Albuterol/Ipratropium (Duoneb -) 1 amp NEB Q4HPO [facility] Last Admin: 05/25/17 10:34 Dose: 1 amp Calcitriol (Rocaltrol -) 0.25 mcg PO DAILY [facility] Last Admin: 05/25/17 10:49 Dose: Not Given Chlorhexidine Gluconate (Hibiclens For Decolonization -) 1 applic TP HS [facility] Last Admin: 05/24/17 21:52 Dose: 1 applic Gabapentin (Neurontin -) 100 mg PO HS [facility] Last Admin: 05/25/17 06:12 Dose: Not Given Hydrocortisone Sodium Succinate (Solu-Cortef -) 100 mg IVPB Q8H-IV [facility] Last Admin: 05/25/17 10:58 Dose: 100 mg Norepinephrine Bitartrate 8, (000 mcg/ Dextrose) 500 mls @ 18.75 mls/hr IV TITR RUEL; 5 MCG/MIN PRN Reason: Protocol Last Admin: 05/24/17 18:38 Dose: 12 mcg/min, 45 mls/hr Phenylephrine HCl 20,000 mcg/ (Sodium Chloride) 250 mls @ 75 mls/hr IVPB ASDIR RUEL; 100 MCG/MIN PRN Reason: Protocol Last Titration: 05/24/17 17:00 Dose: 0 mcg/min, 0 mls/hr Vasopressin 50 units/ Sodium (Chloride) 100 mls @ 4 mls/hr IVPB ASDIR RUEL; 2 UNITS/HR PRN Reason: Protocol Last Admin: 05/25/17 06:31 Dose: Not Given Meropenem 500 mg/ Dextrose 100 mls @ 200 mls/hr IVPB BID [facility] Last Admin: 05/25/17 10:58 Dose: 200 mls/hr Midazolam HCl 100 mg/ Sodium (Chloride) 100 mls @ 1 mls/hr IVPB TITR RUEL; 1 MG/ HR PRN Reason: Protocol Last Admin: 05/25/17 02:00 Dose: 2 mg/hr, 2 mls/hr Dobutamine HCl/Dextrose (Dobutamine 250 Mg/D5w -) 250,000 mcg in 250 mls @ 24.889 mls/hr IV TITR RUEL; 5 MCG/KG/MIN PRN Reason: Protocol Last Admin: 05/24/17 21:37 Dose: 5 mcg/kg/min, 24.889 mls/hr Insulin Aspart (Novolog Vial Sliding Scale -) 1 vial SQ ACHS [facility] PRN Reason: Protocol Last Admin: 05/25/17 06:09 Dose: 2 units Midodrine (Proamatine -) 5 mg PO TID-MID [facility] Last Admin: 05/25/17 10:49 Dose: Not Given Mometasone Furoate (Asmanex 220mcg -) 1 puff IH HS [facility] Last Admin: 05/25/17 06:12 Dose: Not Given Multivit/Ca Carb/B Cmplx/FA/Prenat (Nephro-Pancho -) 1 tablet PO DAILY [facility] Last Admin: 05/25/17 10:49 Dose: Not Given Mupirocin (Bactroban Ointment (For Decolonization) -) 1 applic NS BID [facility] Stop: 05/26/17 21:59 Last Admin: 05/25/17 10:59 Dose: 1 applic Pantoprazole Sodium (Protonix Iv) 40 mg IVPUSH BID [facility] Last Admin: 05/25/17 10:59 Dose: 40 mg Witch Peggy/Glycerin (Tucks Pads -) 1 pad TP Q4H [facility] Last Admin: 05/25/17 06:56 Dose: Not Given - Objective Vital Signs: Vital Signs Temperature 98.0 F 05/25/17 10:00 Pulse Rate 92 H 05/25/17 10:00 Respiratory Rate 16 05/25/17 10:00 Blood Pressure 112/59 05/25/17 10:00 O2 Sat by Pulse Oximetry (%) 98 05/25/17 09:00 Constitutional: Yes: No Distress HENT: Yes: Other (Left IJ line) Cardiovascular: Yes: Pulse Irregular, S1, S2 Respiratory: Yes: Diminished (Equal air entry B/L) Gastrointestinal: Yes: Soft. No: Distention Extremities: Yes: Other (LUE AV access with bruit Gangrene of the Left fourth finger and of B/L toes) Neurological: Yes: Other (Sedated) Labs: CBC, BMP 05/25/17 05:20 INR, PTT INR 1.86 (0.82-1.09) H 05/24/17 05:50 Fibrinogen 260.0 mg/dL (238-498) 05/24/17 05:50 Assessment/Plan Impression 1. ESRD dialyzed 05/23 2. Sepsis 3. S/P GIB 4. Anemia and Thrombocytopenia 5. CAD 6. s/p CABG and Bio AVR/TVR 7. DM 8. PVD with gangrene of the feet and left finger 9. New onset of A Fib Plan EKG Cardiology F/U Taper pressors and FiO2 as tolerated Today's K 3.1 and pt has a Fib now so would give 20 Meq IV X1 Next HD tentatively scheduled for tomorrow if hemodynamically Abx as per ID Prognosis poor Discussed with the ICU psychology associate AGRONOMY PROFESSOR Dr Barbosa
[2017-05-25 11:13] LABS: GLUCOSE,RANDOM 141 mg/dL (74-106)
[2017-05-25] MEDS ORDERED: POTASSIUM CHLORIDE 20 MEQ PREMIX IVPB 100 ML IVPB ONE (11:40)
--- NOTE | 2017-05-25 13:25 | PN ---
Progress Note (short form) - Note Progress Note: chart reviewed not much change, remains intubated/on pressors (though dec requirement), now hypothermic. CBC: dropping Platelet count O/E: Constitutional: Yes: Other (intubated/mechanically vented .) HENT: Yes: Other (noted bleeding at the ETT site) Cardiovascular: Yes: Tachycardia Respiratory: Yes: Mechanically Ventilated Gastrointestinal: Yes: Abdomen, Obese Extremities: Yes: Other (Bilateral gangrenous lower extremity) Last Vital Signs Temp Pulse Resp BP Pulse Ox 98.1 F 94 H 17 121/62 98 05/25/17 11:00 05/25/17 11:00 05/25/17 11:26 05/25/17 11:00 05/25/17 09:00 CBC, BMP 05/25/17 05:20 05/25/17 05:20 Current Medications Generic Name Dose Route Start Last Admin Trade Name Freq PRN Reason Stop Dose Admin Albuterol/Ipratropium 1 amp 05/21/17 18:00 05/25/17 10:34 Duoneb - NEB 1 amp Q4HPO RUEL Administration Calcitriol 0.25 mcg 05/23/17 10:45 05/25/17 10:49 Rocaltrol - PO Not Given DAILY RU[facility] Chlorhexidine Gluconate 1 applic 05/21/17 22:00 05/24/17 21:52 Hibiclens For Decolonization - TP 1 applic HS [facility] Administration Gabapentin 100 mg 05/22/17 22:00 05/25/17 06:12 Neurontin - PO Not Given HS RU[facility] Hydrocortisone Sodium Succinate 100 mg 05/23/17 18:00 05/25/17 10:58 Solu-Cortef - IVPB 100 mg Q8H-IV [facility] Administration Norepinephrine Bitartrate 8, 500 mls @ 18.75 mls/hr 05/21/17 16:45 05/24/17 18:38 000 mcg/ Dextrose IV 12 mcg/min TITR RUEL 45 mls/hr Protocol Administration 5 MCG/MIN Phenylephrine HCl 20,000 mcg/ 250 mls @ 75 mls/hr 05/22/17 13:00 05/24/17 17: 00 Sodium Chloride IVPB 0 mcg/min ASDIR RUEL 0 mls/hr Protocol Titration 100 MCG/MIN Vasopressin 50 units/ Sodium 100 mls @ 4 mls/hr 05/22/17 22:30 05/25/17 06:31 Chloride IVPB Not Given ASDIR RUEL Protocol 2 UNITS/HR Meropenem 500 mg/ Dextrose 100 mls @ 200 mls/hr 05/23/17 08:00 05/25/17 10:58 IVPB 200 mls/hr BID [facility] Administration Midazolam HCl 100 mg/ Sodium 100 mls @ 1 mls/hr 05/23/17 12:00 05/25/17 02:00 Chloride IVPB 2 mg/hr TITR RUEL 2 mls/hr Protocol Administration 1 MG/HR Dobutamine HCl/Dextrose 250,000 mcg in 250 mls @ 24.889 mls/hr 05/23/17 16:45 05/24/17 21:37 Dobutamine 250 Mg/D5w - IV 5 mcg/kg/min TITR RUEL 24.889 mls/hr Protocol Administration 5 MCG/KG/MIN Potassium Chloride 10 meq/ 105 mls @ 105 mls/hr 05/25/17 12:00 Sodium Chloride IVPB 05/25/17 13:59 Q1H [facility] Insulin Aspart 1 vial 05/22/17 22:00 05/25/17 11:16 Novolog Vial Sliding Scale - SQ Not Given ACHS [facility] Protocol Midodrine 5 mg 05/21/17 23:15 05/25/17 10:49 Proamatine - PO Not Given TID-MID [facility] Mometasone Furoate 1 puff 05/21/17 22:00 05/25/17 06:12 Asmanex 220mcg - IH Not Given HS [facility] Multivit/Ca Carb/B Cmplx/FA/Prenat 1 tablet 05/22/17 10:00 05/25/17 10:49 Nephro-Pancho - PO Not Given DAILY [facility] Mupirocin 1 applic 05/21/17 22:00 05/25/17 10:59 Bactroban Ointment (For Decolonization) - NS 05/26/17 21:59 1 applic BID [facility] Administration Pantoprazole Sodium 40 mg 05/25/17 10:00 05/25/17 10:59 Protonix Iv IVPUSH 40 mg BID [facility] Administration Witch Peggy/Glycerin 1 pad 05/21/17 19:15 05/25/17 06:56 Tucks Pads - TP Not Given Q4H [facility] Coagulopathy/Thrombocytopenia: multi-factorial One SDU today repeat coags s/p FFP/ddAVP/Vit K Guarded prognosis pal care eval d/w daughter rest per ICU Problem List - Problems (1) Coagulopathy Code(s): D68.9 - COAGULATION DEFECT, UNSPECIFIED (2) Gangrene Code(s): I96 - GANGRENE, NOT ELSEWHERE CLASSIFIED (3) GI bleed Code(s): K92.2 - GASTROINTESTINAL HEMORRHAGE, UNSPECIFIED (4) Hx of CABG Code(s): Z95.1 - PRESENCE OF AORTOCORONARY BYPASS GRAFT
[2017-05-25] MEDS: POTASSIUM CHLORIDE 10 MEQ in SODIUM CHLORIDE 100 ML IVPB SCH ×2 (14:07→15:43)
[2017-05-25] MEDS: PHENYLEPHRINE HCL 20,000 MCG in SODIUM CHLORIDE 248 ML IVPB SCH (15:55)
[2017-05-25 16:36] LABS: INR 1.38 (0.82-1.09); PROTHROMBIN TIME (PATIENT) 15.6 SEC (9.98-11.88)
[2017-05-25 16:38] LABS: ACTIVATED PTT 46.4 SECONDS (26.9-34.4)
[2017-05-25] MEDS ORDERED: PT OWN MED DRAWER 7, Y5N ONE (18:05)
[2017-05-25] MEDS: DOBUTAMINE 250 MG/D5W - 250,000 MCG/250 ML INFUS.BAG IV SCH (18:41)
[2017-05-25] MEDS: NOREPINEPHRINE BITARTRATE 8,000 MCG in DEXTROSE 5%-WATER - 492 ML IV SCH (18:56)
--- NOTE | 2017-05-25 21:19 | EKG ---
Test Reason : Blood Pressure : / mmHG Vent. Rate : 093 BPM Atrial Rate : 093 BPM P-R Int : 000 ms QRS Dur : 108 ms QT Int : 394 ms P-R-T Axes : 000 165 -55 degrees QTc Int : 489 ms SINUS RHYTHM WITH SHORT [place] WITH PREMATURE SUPRAVENTRICULAR COMPLEXES LOW VOLTAGE QRS SEPTAL INFARCT (CITED ON OR BEFORE 21-MAY-2017) POSSIBLE LATERAL INFARCT (CITED ON OR BEFORE 21-MAY-2017) ABNORMAL ECG WHEN COMPARED WITH ECG OF 21-MAY-2017 12:29, PREMATURE SUPRAVENTRICULAR COMPLEXES ARE NOW PRESENT POSSIBLE LATERAL INFARCT NOW PRESENT Confirmed by RASHAUN VELAZQUEZ MD ([id number]) on 05/25/2017 9:19:33 PM Referred By: Elpidio HOPKINS Confirmed By:RASHAUN VELAZQUEZ MD
[2017-05-25] MEDS: CHLORHEXIDINE GLUCONATE 4% CLEANSER FOR DECOLONIZATION TP SCH (22:10)
[2017-05-26] MEDS: HYDROCORTISONE SOD SUCCINATE 100 MG/2 ML VIAL IVPB SCH ×3 (02:10→18:38)
[2017-05-26] MEDS: ALBUTEROL SO4 2.5/IPRATROPIUM 0.5 INH SOL 3 ML VIAL.NEB. NEB SCH ×6 (02:20→20:10)
[2017-05-26] MEDS: WITCH HAZEL 50% (TUCKS) 40 PAD/JAR PAD TP SCH ×2 (04:00)
[2017-05-26] MEDS: INSULIN SLIDING SCALE (NOVOLOG) 1 VIAL SQ SCH ×4 (06:19→21:52)
[2017-05-26 06:34] LABS: HEMOGLOBIN 8.9 GM/dL (10.7-15.3); MCH 28.5 pg (25.7-33.7); MCHC 34.3 g/dl (32.0-36.0); MEAN CELL VOLUME 83.2 fl (80-96); MEAN PLT VOLUME 9.6 fl (7.5-11.1); PLATELET COUNT 53 K/MM3 (134-434); RBC 3.12 M/mm3 (3.60-5.2); RDW 22.6 % (11.6-15.6); WHITE BLOOD COUNT 7.9 K/mm3 (4.0-10.0)
[2017-05-26 06:59] LABS: CHLORIDE 94 mmol/L (98-107); POTASSIUM 3.7 mmol/L (3.5-5.1); SODIUM 133 mmol/L (136-145)
[2017-05-26 07:06] LABS: ALBUMIN 1.9 g/dl (3.4-5.0); ALK PHOS 99 U/L (45-117); ANION GAP 16 (8-16); BILIRUBIN,DIRECT 1.7 mg/dL (0.0-0.2); BILIRUBIN,TOTAL 2.7 mg/dL (0.2-1.0); BLOOD UREA NITROGEN 40 mg/dL (7-18); CALCIUM 7.5 mg/dL (8.5-10.1); CO2 23 mmol/L (21-32); CREATININE 3.9 mg/dL (0.55-1.02); GLUCOSE,RANDOM 126 mg/dL (74-106); PHOSPHOROUS 4.2 mg/dL (2.5-4.9); SGOT/AST 46 U/L (15-37); SGPT/ALT 17 U/L (12-78); TOT PROT 5.4 g/dl (6.4-8.2)
--- NOTE | 2017-05-26 07:20 | PN ---
Progress Note, Physician Chief Complaint: ID Overall condition unchanged Intubated with pressor support Meropenem day 3 Rx empiric for sepsis - Current Medication List Current Medications: Active Medications Albuterol/Ipratropium (Duoneb -) 1 amp NEB Q4HPO [facility] Last Admin: 05/26/17 02:20 Dose: 1 amp Calcitriol (Rocaltrol -) 0.25 mcg PO DAILY [facility] Last Admin: 05/25/17 10:49 Dose: Not Given Chlorhexidine Gluconate (Hibiclens For Decolonization -) 1 applic TP HS [facility] Last Admin: 05/25/17 22:10 Dose: 1 applic Gabapentin (Neurontin -) 100 mg PO HS [facility] Last Admin: 05/25/17 22:12 Dose: Not Given Hydrocortisone Sodium Succinate (Solu-Cortef -) 100 mg IVPB Q8H-IV [facility] Last Admin: 05/26/17 02:10 Dose: 100 mg Norepinephrine Bitartrate 8, (000 mcg/ Dextrose) 500 mls @ 18.75 mls/hr IV TITR [facility]; 5 MCG/MIN PRN Reason: Protocol Last Titration: 05/26/17 06:20 Dose: 10 mcg/min, 37.5 mls/hr Phenylephrine HCl 20,000 mcg/ (Sodium Chloride) 250 mls @ 75 mls/hr IVPB ASDIR RUEL; 100 MCG/MIN PRN Reason: Protocol Last Admin: 05/25/17 15:55 Dose: Not Given Vasopressin 50 units/ Sodium (Chloride) 100 mls @ 4 mls/hr IVPB ASDIR [facility]; 2 UNITS/HR PRN Reason: Protocol Last Admin: 05/25/17 22:14 Dose: Not Given Meropenem 500 mg/ Dextrose 100 mls @ 200 mls/hr IVPB BID [facility] Last Admin: 05/25/17 22:10 Dose: 200 mls/hr Midazolam HCl 100 mg/ Sodium (Chloride) 100 mls @ 1 mls/hr IVPB TITR [facility]; 1 MG/ HR PRN Reason: Protocol Last Admin: 05/25/17 15:57 Dose: 3 mg/hr, 3 mls/hr Dobutamine HCl/Dextrose (Dobutamine 250 Mg/D5w -) 250,000 mcg in 250 mls @ 24.889 mls/hr IV TITR [facility]; 5 MCG/KG/MIN PRN Reason: Protocol Last Admin: 05/25/17 18:41 Dose: 5 mcg/kg/min, 24.889 mls/hr Insulin Aspart (Novolog Vial Sliding Scale -) 1 vial SQ ACHS [facility] PRN Reason: Protocol Last Admin: 05/26/17 06:19 Dose: 2 units Midodrine (Proamatine -) 5 mg PO TID-MID [facility] Last Admin: 05/25/17 18:26 Dose: Not Given Mometasone Furoate (Asmanex 220mcg -) 1 puff IH HS [facility] Last Admin: 05/25/17 22:10 Dose: Not Given Multivit/Ca Carb/B Cmplx/FA/Prenat (Nephro-Pancho -) 1 tablet PO DAILY [facility] Last Admin: 05/25/17 10:49 Dose: Not Given Mupirocin (Bactroban Ointment (For Decolonization) -) 1 applic NS BID [facility] Stop: 05/26/17 21:59 Last Admin: 05/25/17 22:20 Dose: 1 applic Pantoprazole Sodium (Protonix Iv) 40 mg IVPUSH BID [facility] Last Admin: 05/25/17 22:19 Dose: 40 mg - Objective Vital Signs: Vital Signs Temperature 98 F 05/26/17 06:00 Pulse Rate 97 H 05/26/17 06:20 Respiratory Rate 18 05/26/17 06:00 Blood Pressure 126/60 05/26/17 06:20 O2 Sat by Pulse Oximetry (%) 100 05/26/17 06:30 Constitutional: Yes: Other (Intubated) Cardiovascular: Yes: S1, S2 Gastrointestinal: Yes: Soft, Distention, Other (firm). No: Tenderness Extremities: Yes: Other (Bilate gangrene) Labs: CBC, BMP 05/26/17 06:10 INR, PTT INR 1.38 (0.82-1.09) H 05/25/17 12:56 Fibrinogen 200.0 mg/dL (238-498) L D 05/25/17 12:56 Problem List - Problems (1) Sepsis Code(s): A41.9 - SEPSIS, UNSPECIFIED ORGANISM (2) Anemia Code(s): D64.9 - ANEMIA, UNSPECIFIED (3) ESRD (end stage renal disease) Code(s): N18.6 - END STAGE RENAL DISEASE (4) GI bleed Code(s): K92.2 - GASTROINTESTINAL HEMORRHAGE, UNSPECIFIED Assessment/Plan Laboratory Tests 05/25/17 05/26/17 05:20 06:10 WBC 7.9 Hgb 8.9 L Hct 26.0 L Plt Count 53 L D BUN 35 H Creatinine 4.0 H Creat Clearance w eGFR 11.50 Assessment Sepsis syndrome unclear source ? bowel ESRD on dialysis S/P heart valve replacement LE gangrene bilateral Plan Antibiotics adding little in terms of clinical improvement Would consider stopping soon Hermelinda TELLES
[2017-05-26] MEDS ORDERED: POTASSIUM CHLORIDE 20 MEQ PREMIX IVPB 100 ML IVPB ONE (07:48)
--- NOTE | 2017-05-26 08:15 | PN ---
Progress Note, Physician History of Present Illness: patient seen and examined in ICU. Remains vent dependent. On 2 pressors. All follow-ups noted/chart reviewed/discussed with Dr. Beatris Noel. Daughter at bedside. sedated. assisting ventilator - Current Medication List Current Medications: Active Medications Albuterol/Ipratropium (Duoneb -) 1 amp NEB Q4HPO RUEL Last Admin: 05/26/17 06:00 Dose: 1 amp Calcitriol (Rocaltrol -) 0.25 mcg PO DAILY RUEL Last Admin: 05/25/17 10:49 Dose: Not Given Chlorhexidine Gluconate (Hibiclens For Decolonization -) 1 applic TP HS RUEL Last Admin: 05/25/17 22:10 Dose: 1 applic Gabapentin (Neurontin -) 100 mg PO HS RUEL Last Admin: 05/25/17 22:12 Dose: Not Given Hydrocortisone Sodium Succinate (Solu-Cortef -) 100 mg IVPB Q8H-IV RUEL Last Admin: 05/26/17 02:10 Dose: 100 mg Norepinephrine Bitartrate 8, (000 mcg/ Dextrose) 500 mls @ 18.75 mls/hr IV TITR RUEL; 5 MCG/MIN PRN Reason: Protocol Last Titration: 05/26/17 06:20 Dose: 10 mcg/min, 37.5 mls/hr Phenylephrine HCl 20,000 mcg/ (Sodium Chloride) 250 mls @ 75 mls/hr IVPB ASDIR RUEL; 100 MCG/MIN PRN Reason: Protocol Last Admin: 05/25/17 15:55 Dose: Not Given Vasopressin 50 units/ Sodium (Chloride) 100 mls @ 4 mls/hr IVPB ASDIR RUEL; 2 UNITS/HR PRN Reason: Protocol Last Admin: 05/25/17 22:14 Dose: Not Given Meropenem 500 mg/ Dextrose 100 mls @ 200 mls/hr IVPB BID RUEL Last Admin: 05/25/17 22:10 Dose: 200 mls/hr Midazolam HCl 100 mg/ Sodium (Chloride) 100 mls @ 1 mls/hr IVPB TITR RUEL; 1 MG/ HR PRN Reason: Protocol Last Titration: 05/26/17 08:07 Dose: 0 mg/hr, 0 mls/hr Dobutamine HCl/Dextrose (Dobutamine 250 Mg/D5w -) 250,000 mcg in 250 mls @ 24.889 mls/hr IV TITR RUEL; 5 MCG/KG/MIN PRN Reason: Protocol Last Admin: 05/25/17 18:41 Dose: 5 mcg/kg/min, 24.889 mls/hr Insulin Aspart (Novolog Vial Sliding Scale -) 1 vial SQ ACHS [facility] PRN Reason: Protocol Last Admin: 05/26/17 06:19 Dose: 2 units Midodrine (Proamatine -) 5 mg PO TID-MID [facility] Last Admin: 05/25/17 18:26 Dose: Not Given Mometasone Furoate (Asmanex 220mcg -) 1 puff IH HS [facility] Last Admin: 05/25/17 22:10 Dose: Not Given Multivit/Ca Carb/B Cmplx/FA/Prenat (Nephro-Pancho -) 1 tablet PO DAILY [facility] Last Admin: 05/25/17 10:49 Dose: Not Given Mupirocin (Bactroban Ointment (For Decolonization) -) 1 applic NS BID [facility] Stop: 05/26/17 21:59 Last Admin: 05/25/17 22:20 Dose: 1 applic Pantoprazole Sodium (Protonix Iv) 40 mg IVPUSH BID [facility] Last Admin: 05/25/17 22:19 Dose: 40 mg Potassium Chloride (Potassium Chloride 20 Meq Premix Ivpb -) 20 meq IVPB ONCE ONE Stop: 05/26/17 07:49 - Objective Vital Signs: Vital Signs Temperature 97.4 F L 05/26/17 08:00 Pulse Rate 94 H 05/26/17 08:00 Respiratory Rate 17 05/26/17 08:00 Blood Pressure 105/49 05/26/17 08:00 O2 Sat by Pulse Oximetry (%) 100 05/26/17 08:00 Constitutional: Yes: Other (intubated/sedated) Neck: Yes: Supple Cardiovascular: Yes: Regular Rate and Rhythm. No: Pulse Irregular Respiratory: Yes: Other (bilateral breath sounds anteriorly) Gastrointestinal: Yes: Soft Wound/Incision: Yes: Other ( feet--- dry gangrene) Neurological: Yes: Unresponsive Labs: CBC, BMP 05/26/17 06:10 05/26/17 06:10 INR, PTT INR 1.38 (0.82-1.09) H 05/25/17 12:56 Fibrinogen 200.0 mg/dL (238-498) L D 05/25/17 12:56 Problem List - Problems (1) Respiratory failure Code(s): J96.90 - RESPIRATORY FAILURE, UNSP, UNSP W HYPOXIA OR HYPERCAPNIA (2) Coagulopathy Code(s): D68.9 - COAGULATION DEFECT, UNSPECIFIED (3) GI bleed Code(s): K92.2 - GASTROINTESTINAL HEMORRHAGE, UNSPECIFIED (4) Gangrene Code(s): I96 - GANGRENE, NOT ELSEWHERE CLASSIFIED (5) Hx of CABG Code(s): Z95.1 - PRESENCE OF AORTOCORONARY BYPASS GRAFT Assessment/Plan patient's condition remained critically ill Hypovolemic shock GI bleeding ESRD on HD CAD , s/p CABG, MV and TV replacement AMS Gangrene of feet -- on pressor support -- blood cultures negative so far -- iv antibiotics -- platelets low --- better today -- started on feeding. --Discussed with remote medical coder. --- Also discussed with nursing staff --Overall progress remains poor. --- Also discussed with patient's daughter also. --Critical care time -35 minutes
[2017-05-26] MEDS ORDERED: PT OWN MED DRAWER 7, Y5N ONE (09:19)
[2017-05-26] MEDS: PANTOPRAZOLE SODIUM 40 MG VIAL IVPUSH SCH ×2 (09:23→21:39)
[2017-05-26] MEDS: MEROPENEM 500 MG in DEXTROSE 5%-WATER - 100 ML IVPB SCH ×2 (09:24→21:38)
[2017-05-26] MEDS: POTASSIUM CHLORIDE 10 MEQ in SODIUM CHLORIDE 100 ML IVPB SCH ×2 (11:36→12:58)
--- NOTE | 2017-05-26 11:45 | PN ---
Progress Note, Physician Chief Complaint: Volume overloaded intubated On levophed and dobutamine History of Present Illness: 56F w/ DM, HTN, s/p CABG 03/2017 after NSTEMI at [facility] with Dr. Conrad WALTERS and TVR , ESRD on Hemodialysis (M/W/F) and PVD, who presented from [facility] for rectal bleeding. She was severely anemic and hypotensive. SP multiple PRBC and on Nor- epi. Takes aspirin, but no other AC. coumadin was stopped on 05/11. The patient denies chest pain, shortness of breath. - Current Medication List Current Medications: Active Medications Albuterol/Ipratropium (Duoneb -) 1 amp NEB Q4HPO RUEL Last Admin: 05/26/17 06:00 Dose: 1 amp Amino Acids (Prosource No Carb Liquid Pkt) 30 ml PO DAILY RUEL Calcitriol (Rocaltrol -) 0.25 mcg PO DAILY RUEL Last Admin: 05/25/17 10:49 Dose: Not Given Chlorhexidine Gluconate (Hibiclens For Decolonization -) 1 applic TP HS RUEL Last Admin: 05/25/17 22:10 Dose: 1 applic Gabapentin (Neurontin -) 100 mg PO HS RUEL Last Admin: 05/25/17 22:12 Dose: Not Given Hydrocortisone Sodium Succinate (Solu-Cortef -) 100 mg IVPB Q8H-IV RUEL Last Admin: 05/26/17 09:23 Dose: 100 mg Norepinephrine Bitartrate 8, (000 mcg/ Dextrose) 500 mls @ 18.75 mls/hr IV TITR RUEL; 5 MCG/MIN PRN Reason: Protocol Last Titration: 05/26/17 06:20 Dose: 10 mcg/min, 37.5 mls/hr Phenylephrine HCl 20,000 mcg/ (Sodium Chloride) 250 mls @ 75 mls/hr IVPB ASDIR RUEL; 100 MCG/MIN PRN Reason: Protocol Last Admin: 05/25/17 15:55 Dose: Not Given Vasopressin 50 units/ Sodium (Chloride) 100 mls @ 4 mls/hr IVPB ASDIR RUEL; 2 UNITS/HR PRN Reason: Protocol Last Admin: 05/25/17 22:14 Dose: Not Given Meropenem 500 mg/ Dextrose 100 mls @ 200 mls/hr IVPB BID RUEL Last Admin: 05/26/17 09:24 Dose: 200 mls/hr Midazolam HCl 100 mg/ Sodium (Chloride) 100 mls @ 1 mls/hr IVPB TITR RUEL; 1 MG/ HR PRN Reason: Protocol Last Titration: 05/26/17 08:07 Dose: 0 mg/hr, 0 mls/hr Dobutamine HCl/Dextrose (Dobutamine 250 Mg/D5w -) 250,000 mcg in 250 mls @ 24.889 mls/hr IV TITR RUEL; 5 MCG/KG/MIN PRN Reason: Protocol Last Admin: 05/25/17 18:41 Dose: 5 mcg/kg/min, 24.889 mls/hr Potassium Chloride 10 meq/ (Sodium Chloride) 105 mls @ 105 mls/hr IVPB Q1H [facility] Stop: 05/26/17 12:29 Last Admin: 05/26/17 11:36 Dose: 105 mls/hr Insulin Aspart (Novolog Vial Sliding Scale -) 1 vial SQ ACHS RUEL PRN Reason: Protocol Last Admin: 05/26/17 11:31 Dose: 2 units Midodrine (Proamatine -) 5 mg PO TID-MID [facility] Last Admin: 05/25/17 18:26 Dose: Not Given Mometasone Furoate (Asmanex 220mcg -) [address] [facility] Last Admin: 05/25/17 22:10 Dose: Not Given Multivit/Ca Carb/B Cmplx/FA/Prenat (Nephro-Pancho -) [address] [facility] Last Admin: 05/25/17 10:49 Dose: Not Given Mupirocin (Bactroban Ointment (For Decolonization) -) [address] [facility] Stop: 05/26/17 21:59 Last Admin: 05/25/17 22:20 Dose: 1 applic Pantoprazole Sodium (Protonix Iv) [address] [facility] Last Admin: 05/26/17 09:23 Dose: 40 mg - Objective Vital Signs: Vital Signs Temperature 98.3 F 05/26/17 10:00 Pulse Rate 92 H 05/26/17 11:00 Respiratory Rate 14 05/26/17 11:13 Blood Pressure 112/54 05/26/17 11:00 O2 Sat by Pulse Oximetry (%) 99 05/26/17 09:00 Constitutional: Yes: Other (intubated) Cardiovascular: Yes: Regular Rate and Rhythm, JVD, Murmur, S1, S2 Respiratory: Yes: CTA Bilaterally Edema: LLE: 1+, RLE: 1+ Labs: CBC, BMP 05/26/17 06:10 05/26/17 06:10 INR, PTT INR 1.38 (0.82-1.09) H 05/25/17 12:56 Fibrinogen 200.0 mg/dL (238-498) L D 05/25/17 12:56 Assessment/Plan 56F w/ DM, HTN, s/p CABG 03/2017 after NSTEMI at [facility] with Dr. Martines MVR and TVR , ESRD on Hemodialysis (M/W/F) and PVD, who presented from [facility] for rectal bleeding. She was severely anemic and hypotensive. SP multiple PRBC and on Nor- epi. Takes aspirin, but no other AC. coumadin was stopped on 05/11. The patient denies chest pain, shortness of breath. 1) Systolic CHF Patient volume overloaded planned for possible HD tomorrow Vitals stable on dobutamine and levophed being titrated down Currently in sinus rhythm but episode of irregular rhythm on tele. No AC as admitted with severe anemia and also with thrombocytopenia. If irregular rhythm again please get ecg -Vent management as per ICU team.
[2017-05-26] MEDS: MIDAZOLAM 100 MG in SODIUM CHLORIDE 100 ML IVPB SCH (13:13)
[2017-05-26] MEDS: AMINO ACIDS/PROTEIN HYDROLYS 30 ML LIQUID.PKT PO SCH (13:14)
[2017-05-26] MEDS: VITAMIN B COMP W-C 1 EA TABLET PO SCH (13:14)
[2017-05-26] MEDS: CALCITRIOL 0.25 MCG CAPSULE (FP) PO SCH (13:14)
[2017-05-26] MEDS: MIDODRINE HCL 5 MG TABLET PO SCH ×3 (13:14→18:38)
--- NOTE | 2017-05-26 14:09 | PN ---
Progress Note, Physician History of Present Illness: Pt seen and examined at bedside. She remains in the ICU. She remains intubated. Blood pressure is better but she is still on pressors. - Current Medication List Current Medications: Active Medications Albuterol/Ipratropium (Duoneb -) 1 amp NEB Q4HPO RUEL Last Admin: 05/26/17 06:00 Dose: 1 amp Amino Acids (Prosource No Carb Liquid Pkt) 30 ml PO DAILY RUEL Last Admin: 05/26/17 13:14 Dose: 30 ml Calcitriol (Rocaltrol -) 0.25 mcg PO DAILY RUEL Last Admin: 05/26/17 13:14 Dose: 0.25 mcg Chlorhexidine Gluconate (Hibiclens For Decolonization -) 1 applic TP HS RUEL Last Admin: 05/25/17 22:10 Dose: 1 applic Gabapentin (Neurontin -) 100 mg PO HS RUEL Last Admin: 05/25/17 22:12 Dose: Not Given Hydrocortisone Sodium Succinate (Solu-Cortef -) 100 mg IVPB Q8H-IV RUEL Last Admin: 05/26/17 09:23 Dose: 100 mg Norepinephrine Bitartrate 8, (000 mcg/ Dextrose) 500 mls @ 18.75 mls/hr IV TITR RUEL; 5 MCG/MIN PRN Reason: Protocol Last Titration: 05/26/17 06:20 Dose: 10 mcg/min, 37.5 mls/hr Phenylephrine HCl 20,000 mcg/ (Sodium Chloride) 250 mls @ 75 mls/hr IVPB ASDIR RUEL; 100 MCG/MIN PRN Reason: Protocol Last Admin: 05/25/17 15:55 Dose: Not Given Vasopressin 50 units/ Sodium (Chloride) 100 mls @ 4 mls/hr IVPB ASDIR RUEL; 2 UNITS/HR PRN Reason: Protocol Last Admin: 05/25/17 22:14 Dose: Not Given Meropenem 500 mg/ Dextrose 100 mls @ 200 mls/hr IVPB BID RUEL Last Admin: 05/26/17 09:24 Dose: 200 mls/hr Midazolam HCl 100 mg/ Sodium (Chloride) 100 mls @ 1 mls/hr IVPB TITR RUEL; 1 MG/ HR PRN Reason: Protocol Last Admin: 05/26/17 13:13 Dose: 2 mg/hr, 2 mls/hr Dobutamine HCl/Dextrose (Dobutamine 250 Mg/D5w -) 250,000 mcg in 250 mls @ 24.889 mls/hr IV TITR [facility]; 5 MCG/KG/MIN PRN Reason: Protocol Last Admin: 05/25/17 18:41 Dose: 5 mcg/kg/min, 24.889 mls/hr Insulin Aspart (Novolog Vial Sliding Scale -) 1 vial SQ ACHS RUEL PRN Reason: Protocol Last Admin: 05/26/17 11:31 Dose: 2 units Midodrine (Proamatine -) 5 mg PO TID-MID [facility] Last Admin: 05/26/17 13:15 Dose: 5 mg Mometasone Furoate (Asmanex 220mcg -) 1 puff IH HS [facility] Last Admin: 05/25/17 22:10 Dose: Not Given Multivit/Ca Carb/B Cmplx/FA/Prenat (Nephro-Pancho -) 1 tablet PO DAILY [facility] Last Admin: 05/26/17 13:14 Dose: 1 tablet Mupirocin (Bactroban Ointment (For Decolonization) -) 1 applic NS BID [facility] Stop: 05/26/17 21:59 Last Admin: 05/25/17 22:20 Dose: 1 applic Pantoprazole Sodium (Protonix Iv) 40 mg IVPUSH BID [facility] Last Admin: 05/26/17 09:23 Dose: 40 mg - Objective Vital Signs: Vital Signs Temperature 98.2 F 05/26/17 13:12 Pulse Rate 91 H 05/26/17 13:00 Respiratory Rate 15 05/26/17 13:00 Blood Pressure 106/53 05/26/17 13:00 O2 Sat by Pulse Oximetry (%) 99 05/26/17 09:00 Constitutional: Yes: Calm Eyes: Yes: Conjunctiva Clear HENT: Yes: Atraumatic Cardiovascular: Yes: S1, S2 Respiratory: Yes: Mechanically Ventilated Gastrointestinal: Yes: Soft Genitourinary: Yes: Incontinence Musculoskeletal: Yes: Muscle Weakness Edema: Yes Edema: LUE: 1+, RUE: 1+, LLE: 1+, RLE: 1+ Integumentary: Yes: Other (gangrene of leg) Neurological: Yes: Lethargy Labs: CBC, BMP 05/26/17 06:10 05/26/17 06:10 INR, PTT INR 1.38 (0.82-1.09) H 05/25/17 12:56 Fibrinogen 200.0 mg/dL (238-498) L D 05/25/17 12:56 - ....Imaging Chest X-ray: Report Reviewed Problem List - Problems (1) ESRD (end stage renal disease) Code(s): N18.6 - END STAGE RENAL DISEASE (2) CAD (coronary artery disease) Code(s): I25.10 - ATHSCL HEART DISEASE OF [place] CORONARY ARTERY W/O ANG PCTRS (3) Hx of CABG Code(s): Z95.1 - PRESENCE OF AORTOCORONARY BYPASS GRAFT (4) Anemia Code(s): D64.9 - ANEMIA, UNSPECIFIED (5) GI bleed Code(s): K92.2 - GASTROINTESTINAL HEMORRHAGE, UNSPECIFIED Assessment/Plan Current Medications Generic Name Dose Route Start Last Admin Trade Name Freq PRN Reason Stop Dose Admin Albumin Human 12.5 gm 05/26/17 14:15 Albumin Human 25% IVPB Q30M RUEL Albuterol/Ipratropium 1 amp 05/21/17 18:00 05/26/17 06:00 Duoneb - NEB 1 amp Q4HPO RUEL Administration Amino Acids 30 ml 05/26/17 10:00 05/26/17 13:14 Prosource No Carb Liquid Pkt PO 30 ml DAILY RUEL Administration Calcitriol 0.25 mcg 05/23/17 10:45 05/26/17 13:14 Rocaltrol - PO 0.25 mcg DAILY RUEL Administration Chlorhexidine Gluconate 1 applic 05/21/17 22:00 05/25/17 22:10 Hibiclens For Decolonization - TP 1 applic HS RUEL Administration Gabapentin 100 mg 05/22/17 22:00 05/25/17 22:12 Neurontin - PO Not Given HS RUEL Hydrocortisone Sodium Succinate 100 mg 05/23/17 18:00 05/26/17 09:23 Solu-Cortef - IVPB 100 mg Q8H-IV RUEL Administration Norepinephrine Bitartrate 8, 500 mls @ 18.75 mls/hr 05/21/17 16:45 05/26/17 06:20 000 mcg/ Dextrose IV 10 mcg/min TITR RUEL 37.5 mls/hr Protocol Titration 5 MCG/MIN Phenylephrine HCl 20,000 mcg/ 250 mls @ 75 mls/hr 05/22/17 13:00 05/25/17 15: 55 Sodium Chloride IVPB Not Given ASDIR RUEL Protocol 100 MCG/MIN Vasopressin 50 units/ Sodium 100 mls @ 4 mls/hr 05/22/17 22:30 05/25/17 22:14 Chloride IVPB Not Given ASDIR RUEL Protocol 2 UNITS/HR Meropenem 500 mg/ Dextrose 100 mls @ 200 mls/hr 05/23/17 08:00 05/26/17 09:24 IVPB 200 mls/hr BID RUEL Administration Midazolam HCl 100 mg/ Sodium 100 mls @ 1 mls/hr 05/23/17 12:00 05/26/17 13:13 Chloride IVPB 2 mg/hr TITR RUEL 2 mls/hr Protocol Administration 1 MG/HR Dobutamine HCl/Dextrose 250,000 mcg in 250 mls @ 24.889 mls/hr 05/23/17 16:45 05/25/17 18:41 Dobutamine 250 Mg/D5w - IV 5 mcg/kg/min TITR RUEL 24.889 mls/hr Protocol Administration 5 MCG/KG/MIN Sodium Chloride 250 mls @ 3,000 mls/hr 05/26/17 14:02 Normal Saline - IV 05/27/17 14:02 PRN PRN Hypotension during Dialysis Insulin Aspart 1 vial 05/22/17 22:00 05/26/17 11:31 Novolog Vial Sliding Scale - SQ 2 units ACHS RE[facility] Administration Protocol Midodrine 5 mg 05/21/17 23:15 05/26/17 13:15 Proamatine - PO 5 mg TID-MID RUEL Administration Mometasone Furoate 1 puff 05/21/17 22:00 05/25/17 22:10 Asmanex 220mcg - IH Not Given HS RUEL Multivit/Ca Carb/B Cmplx/FA/Prenat 1 tablet 05/22/17 10:00 05/26/17 13:14 Nephro-Pancho - PO 1 tablet DAILY RUEL Administration Mupirocin 1 applic 05/21/17 22:00 05/25/17 22:20 Bactroban Ointment (For Decolonization) - NS 05/26/17 21:59 1 applic BID RUEL Administration Pantoprazole Sodium 40 mg 05/25/17 10:00 05/26/17 09:23 Protonix Iv IVPUSH 40 mg BID RUEL Administration Impression 1. ESRD 2. GI bleed likely from hemorrhoids 3. hemorrhoids 4. anemia 5. CAD 6. s/p CABG 7. DM 8. hypotension 9. lactic acidosis Plan - will arrange for HD today - continue to monitor labs - abx per ID - cxr reviewed - discussed with ICU team, will attempt to UF a liter - maintain map of 65 - oncology eval appreciated - monitor coags - prognosis is poor - will follow Dr Plummer
--- NOTE | 2017-05-26 14:24 | PN ---
Physical Exam: SUBJECTIVE: Patient seen and examined Overnight, pt became hypothermic requiring bear hugger. This am, pt sedated on vent, unresponsive to commands. OBJECTIVE: Vital Signs Period Temp Pulse Resp BP Sys/Ceron Pulse Ox Last 24 Hr 94.3 F-98.3 F 88-98 14-19 93-126/49-76 99-100 GENERAL: middle aged female, lying in bed, on vent, sedated, with anasarca HEENT: ET tube in place, NG tube in place LUNGS: mechanical breath sounds HEART: tachycardic ABDOMEN: obese, soft, NT EXTREMITIES: 2+ pitting edema in all 4 extremities. gangrene in b/l feet. wrists and ankles cold to palpation. no distal pulses able to be palpated NEUROLOGICAL: unresponsive Laboratory Results - last 24 hr 05/25/17 05/25/17 05/25/17 12:56 17:20 22:09 WBC RBC Hgb Hct MCV MCH MCHC RDW Plt Count MPV PT with INR 15.60 H INR 1.38 H PTT (Actin FS) 46.4 H Fibrinogen 200.0 L D Anticoagulation Therapy O2 Delivery Device Oxygen Flow Rate Vent Mode Vent Rate Mechanical Rate Pressure Support Vent Sodium Potassium Chloride Carbon Dioxide Anion Gap BUN Creatinine POC Glucometer 133.26940 165.07358 Random Glucose Calcium Phosphorus Magnesium Total Bilirubin Direct Bilirubin AST ALT Alkaline Phosphatase Total Protein Albumin 05/26/17 05/26/17 05/26/17 06:10 06:10 06:10 WBC 7.9 RBC 3.12 L Hgb 8.9 L Hct 26.0 L MCV 83.2 MCH 28.5 MCHC 34.3 RDW 22.6 H Plt Count 53 L D MPV 9.6 D PT with INR INR PTT (Actin FS) Fibrinogen Anticoagulation Therapy O2 Delivery Device Oxygen Flow Rate Vent Mode Vent Rate Mechanical Rate Pressure Support Vent Sodium 133 L Potassium 3.7 Chloride 94 L Carbon Dioxide 23 Anion Gap 16 BUN 40 H Creatinine 3.9 H POC Glucometer 170.43820 Random Glucose 126 H Calcium 7.5 L Phosphorus 4.2 Magnesium 2.0 Total Bilirubin 2.7 H Direct Bilirubin 1.7 H AST 46 H ALT 17 Alkaline Phosphatase 99 Total Protein 5.4 L Albumin 1.9 L 05/26/17 05/26/17 06:44 11:28 WBC RBC Hgb Hct MCV MCH MCHC RDW Plt Count MPV PT with INR INR PTT (Actin FS) Fibrinogen Anticoagulation Therapy No Result Required. O2 Delivery Device No Result Required. Oxygen Flow Rate No Result Required. Vent Mode No Result Required. Vent Rate No Result Required. Mechanical Rate No Result Required. Pressure Support Vent No Result Required. Sodium Potassium Chloride Carbon Dioxide Anion Gap BUN Creatinine POC Glucometer [phone] Random Glucose Calcium Phosphorus Magnesium Total Bilirubin Direct Bilirubin AST ALT Alkaline Phosphatase Total Protein Albumin Active Medications Generic Name Dose Route Start Last Admin Trade Name Freq PRN Reason Stop Dose Admin Albumin Human 12.5 gm 05/26/17 14:15 Albumin Human 25% IVPB Q30M RUEL Albuterol/Ipratropium 1 amp 05/21/17 18:00 05/26/17 06:00 Duoneb - NEB 1 amp Q4HPO RUEL Administration Amino Acids 30 ml 05/26/17 10:00 05/26/17 13:14 Prosource No Carb Liquid Pkt PO 30 ml DAILY RUEL Administration Calcitriol 0.25 mcg 05/23/17 10:45 05/26/17 13:14 Rocaltrol - PO 0.25 mcg DAILY RUEL Administration Chlorhexidine Gluconate 1 applic 05/21/17 22:00 05/25/17 22:10 Hibiclens For Decolonization - TP 1 applic HS RUEL Administration Gabapentin 100 mg 05/22/17 22:00 05/25/17 22:12 Neurontin - PO Not Given HS RUEL Hydrocortisone Sodium Succinate 100 mg 05/23/17 18:00 05/26/17 09:23 Solu-Cortef - IVPB 100 mg Q8H-IV RUEL Administration Norepinephrine Bitartrate 8, 500 mls @ 18.75 mls/hr 05/21/17 16:45 05/26/17 06:20 000 mcg/ Dextrose IV 10 mcg/min TITR RUEL 37.5 mls/hr Protocol Titration 5 MCG/MIN Phenylephrine HCl 20,000 mcg/ 250 mls @ 75 mls/hr 05/22/17 13:00 05/25/17 15: 55 Sodium Chloride IVPB Not Given ASDIR RUEL Protocol 100 MCG/MIN Vasopressin 50 units/ Sodium 100 mls @ 4 mls/hr 05/22/17 22:30 05/25/17 22:14 Chloride IVPB Not Given ASDIR RUEL Protocol 2 UNITS/HR Meropenem 500 mg/ Dextrose 100 mls @ 200 mls/hr 05/23/17 08:00 05/26/17 09:24 IVPB 200 mls/hr BID RUEL Administration Midazolam HCl 100 mg/ Sodium 100 mls @ 1 mls/hr 05/23/17 12:00 05/26/17 13:13 Chloride IVPB 2 mg/hr TITR RUEL 2 mls/hr Protocol Administration 1 MG/HR Dobutamine HCl/Dextrose 250,000 mcg in 250 mls @ 24.889 mls/hr 05/23/17 16:45 05/25/17 18:41 Dobutamine 250 Mg/D5w - IV 5 mcg/kg/min TITR RUEL 24.889 mls/hr Protocol Administration 5 MCG/KG/MIN Sodium Chloride 250 mls @ 3,000 mls/hr 05/26/17 14:02 Normal Saline - IV 05/27/17 14:02 PRN PRN Hypotension during Dialysis Insulin Aspart 1 vial 05/22/17 22:00 05/26/17 11:31 Novolog Vial Sliding Scale - SQ 2 units ACHS RUEL Administration Protocol Midodrine 5 mg 05/21/17 23:15 05/26/17 13:15 Proamatine - PO 5 mg TID-MID RUEL Administration Mometasone Furoate 1 puff 05/21/17 22:00 05/25/17 22:10 Asmanex 220mcg - IH Not Given HS RUEL Multivit/Ca Carb/B Cmplx/FA/Prenat 1 tablet 05/22/17 10:00 05/26/17 13:14 Nephro-Pancho - PO 1 tablet DAILY RUEL Administration Mupirocin 1 applic 05/21/17 22:00 05/25/17 22:20 Bactroban Ointment (For Decolonization) - NS 05/26/17 21:59 1 applic BID RUEL Administration Pantoprazole Sodium 40 mg 05/25/17 10:00 05/26/17 09:23 Protonix Iv IVPUSH 40 mg BID RUEL Administration ASSESSMENT/PLAN: 56F w/ hx of DM, HTN, AR s/p CABG (03/2017), ESRD on Hemodialysis (M/W/F), and hemorrhoids who presented with BRBPR, admitted to ICU with shock, now s/p intubation on vent, on pressors and abx. #GI -likely lower GI bleed source from hemorrhoids, can't r/o other lower sources (anal fissure, rectal or colonic mass, diverticulosis, AVM) or upper ( PUD, gastritis/esophagitis, etc). Etiology possibly 2/2 DIC -Hgb of 8.9 today, stable -IV protonix -GI on board, Dr. Iniguez -home ASA held -no further episodes of rectal bleeding #CV -troponinemia, likely due to clearance failure as pt is ESRD. Trops peaked at 2.02 -shock: continue levo and dobutamine. wean at tolerated. continue hydrocortisone 100mg q8h -f/u CVP if possible -cardiology on board, Dr. Stapleton. recs appreciated -b/l gangrenous feet. vascular on board, Dr. Smith #Resp -intubated on vent. wean as tolerated -versed gtt #hematology -hematology on board, Dr. Salomon, recs appreciated -elevated PT, INR, and PTT in conjunction with anemia and thrombocytopenia and pt's comorbidities and clinical presentation support diagnosis of coaguloapathy. -s/p FFP, vit. K, DDAVP, platelets -continue to trend labs #nephro -renal on board, Dr. Plummer. recs appreciated. Pt to get HD today #neuro -sedated #endo -DM, diet controlled -BGM q6h -continue home gabapentin 100mg HS #ID -dry gangrene on b/l feet -afebrile, minimal leukocytosis. Cxs negative -ID on board, Dr. Collins. continue meropenem #FEN/ppx -pressors -electrolytes wnl -tube feeds -protonix -no DVT ppx as elevated INR and GI bleed #Dispo -full code Case discussed with attending, Dr. Vargas. -Den Dsouza MD PGY1 ICU Team Visit type - Emergency Visit Emergency Visit: Yes ED Registration Date: 05/21/17 Care time: The patient presented to the Emergency Department on the above date and was hospitalized for further evaluation of their emergent condition. - New Patient This patient is new to me today: No - Critical Care Critical Care patient: Yes Total Critical Care Time (in minutes): 50 Critical Care Statement: The care of this patient involved high complexity decision making to prevent further life threatening deterioration of the patient 's condition and/or to evaluate & treat vital organ system(s) failure or risk of failure.
[2017-05-26] MEDS ORDERED: morphine SULFATE 4 MG/ML VIAL IM PRN (14:38)
[2017-05-26] MEDS: PHENYLEPHRINE HCL 20,000 MCG in SODIUM CHLORIDE 248 ML IVPB SCH (15:00)
[2017-05-26] MEDS ORDERED: NOREPINEPHRINE BITARTRATE 4 MG/4 ML ML IV ONE (15:14)
[2017-05-26] MEDS: NOREPINEPHRINE BITARTRATE 8,000 MCG in DEXTROSE 5%-WATER - 492 ML IV SCH ×2 (15:15→18:58)
--- NOTE | 2017-05-26 15:26 | PN ---
Teaching Attending Note Name of Resident: Den Dsouza ATTENDING PHYSICIAN STATEMENT I saw and evaluated the patient. I reviewed the resident's note and discussed the case with the resident. I agree with the resident's findings and plan as documented. SUBJECTIVE: Pt seen and examined in the ICU. Remains intubated, sedated on levophed and dobutamine gtts. OBJECTIVE: Last Vital Signs Temp Pulse Resp BP Pulse Ox 98.8 F 89 17 101/45 99 05/26/17 13:40 05/26/17 14:15 05/26/17 14:15 05/26/17 14:15 05/26/17 09:00 Intake & Output 05/23/17 05/24/17 05/25/17 05/26/17 23:59 23:59 23:59 23:59 Intake Total 8207 1495 1903.4 509.1 Balance 8207 1495 1903.4 509.1 Weight 82.962 kg 87.044 kg 88.405 kg 90.038 kg Gen: intubated, sedated Heart: RRR Lung: scattered rhonchi Abd: soft, nontender Ext: + edema CBC, BMP 05/26/17 06:10 05/26/17 06:10 Active Medications Albumin Human (Albumin Human 25%) 12.5 gm IVPB Q30M RUEL Stop: 05/26/17 16:16 Albuterol/Ipratropium (Duoneb -) 1 amp NEB Q4HPO RUEL Last Admin: 05/26/17 06:00 Dose: 1 amp Amino Acids (Prosource No Carb Liquid Pkt) 30 ml PO DAILY RUEL Last Admin: 05/26/17 13:14 Dose: 30 ml Calcitriol (Rocaltrol -) 0.25 mcg PO DAILY RUEL Last Admin: 05/26/17 13:14 Dose: 0.25 mcg Chlorhexidine Gluconate (Hibiclens For Decolonization -) 1 applic TP HS RUEL Last Admin: 05/25/17 22:10 Dose: 1 applic Gabapentin (Neurontin -) 100 mg PO TID RUEL Hydrocortisone Sodium Succinate (Solu-Cortef -) 100 mg IVPB Q8H-IV RUEL Last Admin: 05/26/17 09:23 Dose: 100 mg Norepinephrine Bitartrate 8, (000 mcg/ Dextrose) 500 mls @ 18.75 mls/hr IV TITR RUEL; 5 MCG/MIN PRN Reason: Protocol Last Titration: 05/26/17 06:20 Dose: 10 mcg/min, 37.5 mls/hr Phenylephrine HCl 20,000 mcg/ (Sodium Chloride) 250 mls @ 75 mls/hr IVPB ASDIR RUEL; 100 MCG/MIN PRN Reason: Protocol Last Admin: 05/25/17 15:55 Dose: Not Given Vasopressin 50 units/ Sodium (Chloride) 100 mls @ 4 mls/hr IVPB ASDIR RUEL; 2 UNITS/HR PRN Reason: Protocol Last Admin: 05/25/17 22:14 Dose: Not Given Meropenem 500 mg/ Dextrose 100 mls @ 200 mls/hr IVPB BID RUEL Last Admin: 05/26/17 09:24 Dose: 200 mls/hr Midazolam HCl 100 mg/ Sodium (Chloride) 100 mls @ 1 mls/hr IVPB TITR RUEL; 1 MG/ HR PRN Reason: Protocol Last Admin: 05/26/17 13:13 Dose: 2 mg/hr, 2 mls/hr Dobutamine HCl/Dextrose (Dobutamine 250 Mg/D5w -) 250,000 mcg in 250 mls @ 24.889 mls/hr IV TITR RUEL; 5 MCG/KG/MIN PRN Reason: Protocol Last Admin: 05/25/17 18:41 Dose: 5 mcg/kg/min, 24.889 mls/hr Sodium Chloride (Normal Saline -) 250 mls @ 3,000 mls/hr IV PRN PRN PRN Reason: Hypotension during Dialysis Stop: 05/27/17 15:29 Insulin Aspart (Novolog Vial Sliding Scale -) 1 vial SQ ACHS RUEL PRN Reason: Protocol Last Admin: 05/26/17 11:31 Dose: 2 units Midodrine (Proamatine -) 5 mg PO TID-MID RUEL Last Admin: 05/26/17 13:15 Dose: 5 mg Mometasone Furoate (Asmanex 220mcg -) 1 puff IH HS RUEL Last Admin: 05/25/17 22:10 Dose: Not Given Morphine Sulfate (Morphine Sulfate) 2 mg IM Q6H PRN PRN Reason: PAIN LEVEL 1-5 Multivit/Ca Carb/B Cmplx/FA/Prenat (Nephro-Pancho -) 1 tablet PO DAILY RUEL Last Admin: 05/26/17 13:14 Dose: 1 tablet Mupirocin (Bactroban Ointment (For Decolonization) -) 1 applic NS BID [facility] Stop: 05/26/17 21:59 Last Admin: 05/25/17 22:20 Dose: 1 applic Pantoprazole Sodium (Protonix Iv) 40 mg IVPUSH BID [facility] Last Admin: 05/26/17 09:23 Dose: 40 mg ASSESSMENT AND PLAN: Acute Hypoxic Respiratory Failure Shock - ?Septic vs Cardiogenic GI Bleed +Troponins likely Demand Ischemia LV Systolic Dysfunction Coagulopathy Gangrene CAD s/p CABG ESRD on HD HTN DM - continue empiric antibiotics - titrate pressors, inotropes to maintain MAP >65 - HD per renal, can attempt ultrafiltration - continue stress dose steroids - lighten sedation to assess mental status - spontaneous breathing trials as tolerated when mental status improved - enteral feeds - DVT/GI prophylaxis - continue ICU monitoring critical care time spent in reviewing chart, evaluating patient and formulating plan 35 min
[2017-05-26] MEDS ORDERED: morphine SULFATE 4 MG/ML VIAL IVPUSH PRN (15:27)
[2017-05-26] MEDS: DOBUTAMINE 250 MG/D5W - 250,000 MCG/250 ML INFUS.BAG IV SCH ×2 (15:28→18:57)
[2017-05-26] MEDS ORDERED: SODIUM CHLORIDE 250 ML IV PRN (15:30)
[2017-05-26] MEDS: MUPIROCIN 2% TOPICAL OINTMENT FOR DECOLONIZATION NS SCH (16:18)
[2017-05-26 17:39] LABS: MCH 27.9 pg (25.7-33.7); MCHC 33.5 g/dl (32.0-36.0); MEAN CELL VOLUME 83.3 fl (80-96); RBC 3.24 M/mm3 (3.60-5.2); WHITE BLOOD COUNT 7.8 K/mm3 (4.0-10.0)
[2017-05-26] MEDS: ALBUMIN HUMAN 25% 12.5 GM/50 ML VIAL IVPB SCH ×2 (17:39→17:40)
[2017-05-26 17:43] LABS: ADD RBC MORPHOLOGY YES
[2017-05-26 17:56] LABS: INR 1.23 (0.82-1.09); PROTHROMBIN TIME (PATIENT) 13.9 SEC (9.98-11.88)
[2017-05-26 17:58] LABS: ACTIVATED PTT 36.5 SECONDS (26.9-34.4)
[2017-05-26 19:35] LABS: ARTERIAL BLOOD GAS BASE EXCESS 0.2 meq/l (-2-2)
[2017-05-26 19:36] LABS: ALLENS TEST POSITIVE
[2017-05-26 19:40] LABS: ARTERIAL BLOOD GAS pH 7.47 (7.35-7.45)
[2017-05-26 21:08] LABS: MEAN PLT VOLUME 8.7 fl (7.5-11.1); PLATELET COUNT 40 K/MM3 (134-434)
[2017-05-26 21:09] LABS: PLATELET ESTIMATE MOD DECREASED
[2017-05-26 21:20] LABS: ANISOCYTOSIS 3+
[2017-05-26 21:23] LABS: MACROCYTOSIS 1+; OVALOCYTE 1+; TARGET CELLS 2+
[2017-05-26] MEDS: CHLORHEXIDINE GLUCONATE 4% CLEANSER FOR DECOLONIZATION TP SCH (21:39)
[2017-05-26] MEDS: VASOPRESSIN 50 UNITS in SODIUM CHLORIDE 97.5 ML IVPB SCH (21:39)
[2017-05-26] MEDS: MOMETASONE FUROATE 220 MCG/IH INHALER IH SCH (21:39)
[2017-05-26] MEDS ORDERED: GABAPENTIN 100 MG CAPSULE (FP) PO SCH (22:00)
--- NOTE | 2017-05-26 23:46 | PN ---
Progress Note (short form) - Note Progress Note: Patient seen and examined arousable Last Vital Signs Temp Pulse Resp BP Pulse Ox 98.1 F 88 16 115/57 100 05/26/17 22:00 05/27/17 00:00 05/27/17 00:00 05/27/17 00:00 05/26/17 22:00 Cor: RSR, No murmurs, No gallops Lungs: Clear to P&A Abd: Soft, Normal bowel sounds, anasarca Abnormal Lab Results 05/26/17 05/26/17 05/26/17 06:10 06:10 06:44 RBC 3.12 L Hgb 8.9 L Hct 26.0 L RDW 22.6 H Plt Count 53 L D Neutrophils % Neutrophils % (Manual) Lymphocytes % Lymphocytes % (Manual) PT with INR INR PTT (Actin FS) Fibrinogen ABG pH 7.47 H D ABG pCO2 at Pt Temp 32.0 L ABG pO2 at Pt Temp 165.0 H* ABG O2 Sat (Measured) 100.0 H* Sodium 133 L Chloride 94 L BUN 40 H Creatinine 3.9 H Random Glucose 126 H Calcium 7.5 L Total Bilirubin 2.7 H Direct Bilirubin 1.7 H AST 46 H Total Protein 5.4 L Albumin 1.9 L 05/26/17 05/26/17 05/26/17 17:00 17:00 23:30 RBC 3.24 L 3.30 L Hgb 9.0 L 9.1 L Hct 27.0 L 27.7 L RDW 23.0 H 22.8 H Plt Count 40 L D 31 L* D Neutrophils % 93.9 H Neutrophils % (Manual) 94.0 H* Lymphocytes % 1.6 L D Lymphocytes % (Manual) 1.0 L PT with INR 13.90 H INR 1.23 H PTT (Actin FS) 36.5 H Fibrinogen 156.0 L D ABG pH ABG pCO2 at Pt Temp ABG pO2 at Pt Temp ABG O2 Sat (Measured) Sodium Chloride BUN Creatinine Random Glucose Calcium Total Bilirubin Direct Bilirubin AST Total Protein Albumin Active Medications Generic Name Dose Route Start Last Admin Trade Name Freq PRN Reason Stop Dose Admin Albuterol/Ipratropium 1 amp 05/21/17 18:00 05/26/17 20:10 Duoneb - NEB 1 amp Q4HPO RUEL Administration Amino Acids 30 ml 05/26/17 10:00 05/26/17 13:14 Prosource No Carb Liquid Pkt PO 30 ml DAILY RUEL Administration Calcitriol 0.25 mcg 05/23/17 10:45 05/26/17 13:14 Rocaltrol - PO 0.25 mcg DAILY RUEL Administration Chlorhexidine Gluconate 1 applic 05/21/17 22:00 05/26/17 21:39 Hibiclens For Decolonization - TP 1 applic HS RUEL Administration Gabapentin 100 mg 05/26/17 22:00 Neurontin - NGT TID RUEL Hydrocortisone Sodium Succinate 100 mg 05/23/17 18:00 05/26/17 18:38 Solu-Cortef - IVPB 100 mg Q8H-IV RUEL Administration Norepinephrine Bitartrate 8, 500 mls @ 18.75 mls/hr 05/21/17 16:45 05/26/17 18:58 000 mcg/ Dextrose IV 10 mcg/min TITR RUEL 37.5 mls/hr Protocol Titration 5 MCG/MIN Phenylephrine HCl 20,000 mcg/ 250 mls @ 75 mls/hr 05/22/17 13:00 05/26/17 15: 00 Sodium Chloride IVPB 8 mcg/min ASDIR RUEL 6 mls/hr Protocol Administration 100 MCG/MIN Meropenem 500 mg/ Dextrose 100 mls @ 200 mls/hr 05/23/17 08:00 05/26/17 21:38 IVPB 200 mls/hr BID RUEL Administration Midazolam HCl 100 mg/ Sodium 100 mls @ 1 mls/hr 05/23/17 12:00 05/26/17 13:13 Chloride IVPB 2 mg/hr TITR RUEL 2 mls/hr Protocol Administration 1 MG/HR Dobutamine HCl/Dextrose 250,000 mcg in 250 mls @ 24.889 mls/hr 05/23/17 16:45 05/26/17 18:57 Dobutamine 250 Mg/D5w - IV 5 mcg/kg/min TITR RUEL 24.889 mls/hr Protocol Administration 5 MCG/KG/MIN Sodium Chloride 250 mls @ 3,000 mls/hr 05/26/17 15:30 Normal Saline - IV 05/27/17 15:29 PRN PRN Hypotension during Dialysis Insulin Aspart 1 vial 05/22/17 22:00 05/26/17 21:52 Novolog Vial Sliding Scale - SQ 2 units ACHS RUEL Administration Protocol Midodrine 5 mg 05/21/17 23:15 05/26/17 18:38 Proamatine - PO 5 mg TID-MID RUEL Administration Mometasone Furoate 1 puff 05/21/17 22:00 05/26/17 21:39 Asmanex 220mcg - IH Not Given HS RUEL Morphine Sulfate 2 mg 05/26/17 15:27 05/26/17 18:36 Morphine Sulfate IVPUSH 2 mg Q6H PRN Administration PAIN LEVEL 1-5 Multivit/Ca Carb/B Cmplx/FA/Prenat 1 tablet 05/22/17 10:00 05/26/17 13:14 Nephro-Pancho - PO 1 tablet DAILY RUEL Administration Pantoprazole Sodium 40 mg 05/25/17 10:00 05/26/17 21:39 Protonix Iv IVPUSH 40 mg BID RUEL Administration A/P 56 y/o Acute Hypoxic Respiratory Failure Shock - ?Septic vs Cardiogenic GI Bleed LV Systolic Dysfunction Coagulopathy Gangrene CAD s/p CABG ESRD on HD HTN DM coagulopathy/thrombocytopenia--ongoing sepsis transfuse monodonor platelets/cryo/FFP if actively beeding or platelets < 20-30, 000 or fibrinogen < 100 monitor CBC/Coags discussed with icu team
[2017-05-27 00:35] LABS: BASO % 0.1 % (0-2.0); HEMATOCRIT 27.7 % (32.4-45.2); HEMOGLOBIN 9.1 GM/dL (10.7-15.3); LYMPH % 1.6 % (8-40); MCH 27.7 pg (25.7-33.7); MEAN PLT VOLUME 9.2 fl (7.5-11.1); MONO % 4.4 % (3.8-10.2); NEUT % 93.9 % (42.8-82.8); PLATELET COUNT 31 K/MM3 (134-434); RDW 22.8 % (11.6-15.6); WHITE BLOOD COUNT 8.1 K/mm3 (4.0-10.0)
[2017-05-27 00:55] LABS: INR 1.24 (0.82-1.09)
[2017-05-27 00:58] LABS: ACTIVATED PTT 36.6 SECONDS (26.9-34.4)
[2017-05-27] MEDS: GABAPENTIN 100 MG CAPSULE (FP) NGT SCH ×4 (02:01→21:20)
[2017-05-27] MEDS: HYDROCORTISONE SOD SUCCINATE 100 MG/2 ML VIAL IVPB SCH ×3 (02:02→19:20)
[2017-05-27] MEDS: ALBUTEROL SO4 2.5/IPRATROPIUM 0.5 INH SOL 3 ML VIAL.NEB. NEB SCH ×6 (02:30→21:22)
[2017-05-27] MEDS: INSULIN SLIDING SCALE (NOVOLOG) 1 VIAL SQ SCH ×4 (06:21→21:35)
[2017-05-27 07:09] LABS: BASO % 0.3 % (0-2.0); EOS % 0.1 % (0-4.5); HEMATOCRIT 27.3 % (32.4-45.2); LYMPH % 2.5 % (8-40); MCH 27.9 pg (25.7-33.7); MCHC 33.1 g/dl (32.0-36.0); MEAN CELL VOLUME 84.2 fl (80-96); MEAN PLT VOLUME 8.5 fl (7.5-11.1); MONO % 4.3 % (3.8-10.2); NEUT % 92.8 % (42.8-82.8); RBC 3.24 M/mm3 (3.60-5.2); RDW 22.9 % (11.6-15.6); WHITE BLOOD COUNT 7.9 K/mm3 (4.0-10.0)
[2017-05-27 07:20] LABS: ALBUMIN 1.8 g/dl (3.4-5.0); ANION GAP 11 (8-16); BLOOD UREA NITROGEN 30 mg/dL (7-18); CALCIUM 7.2 mg/dL (8.5-10.1); CHLORIDE 98 mmol/L (98-107); CO2 26 mmol/L (21-32); GLUCOSE,RANDOM 157 mg/dL (74-106); MAGNESIUM 1.6 mg/dL (1.8-2.4); POTASSIUM 3.4 mmol/L (3.5-5.1); SODIUM 135 mmol/L (136-145)
[2017-05-27 07:23] LABS: ALK PHOS 105 U/L (45-117); BILIRUBIN,TOTAL 2.4 mg/dL (0.2-1.0); PHOSPHOROUS 3.5 mg/dL (2.5-4.9); SGOT/AST 72 U/L (15-37); SGPT/ALT 22 U/L (12-78); TOT PROT 5.3 g/dl (6.4-8.2)
[2017-05-27 08:06] LABS: INR 1.22 (0.82-1.09); PROTHROMBIN TIME (PATIENT) 13.8 SEC (9.98-11.88)
[2017-05-27 08:09] LABS: ACTIVATED PTT 39.6 SECONDS (26.9-34.4)
[2017-05-27 08:10] LABS: PLATELET COUNT 31 K/MM3 (134-434)
[2017-05-27] MEDS ORDERED: MAGNESIUM 1GM/D5W 100ML - 100 ML IVPB IVPB ONE (09:00)
[2017-05-27] MEDS ORDERED: PT OWN MED DRAWER 7, Y5N ONE ×2 (09:13→21:12)
[2017-05-27] MEDS: PANTOPRAZOLE SODIUM 40 MG VIAL IVPUSH SCH ×2 (09:29→21:20)
[2017-05-27] MEDS: VITAMIN B COMP W-C 1 EA TABLET PO SCH (09:29)
[2017-05-27] MEDS: CALCITRIOL 0.25 MCG CAPSULE (FP) PO SCH (09:29)
[2017-05-27] MEDS: AMINO ACIDS/PROTEIN HYDROLYS 30 ML LIQUID.PKT PO SCH (09:30)
[2017-05-27] MEDS: MIDODRINE HCL 5 MG TABLET PO SCH ×3 (09:30→19:18)
[2017-05-27] MEDS: MEROPENEM 500 MG in DEXTROSE 5%-WATER - 100 ML IVPB SCH ×2 (09:30→21:19)
[2017-05-27] MEDS: PHENYLEPHRINE HCL 20,000 MCG in SODIUM CHLORIDE 248 ML IVPB SCH (09:38)
[2017-05-27] MEDS: POTASSIUM CHLORIDE 10 MEQ in SODIUM CHLORIDE 100 ML IVPB SCH ×3 (09:39→11:17)
--- NOTE | 2017-05-27 10:40 | PN ---
Progress Note, Physician Chief Complaint: Was on sedation vacation-- but pt was biting the tube She had bloody bm this AM-- feedings on hold - Current Medication List Current Medications: Active Medications Albuterol/Ipratropium (Duoneb -) 1 amp NEB Q4HPO RUEL Last Admin: 05/27/17 06:39 Dose: 1 amp Amino Acids (Prosource No Carb Liquid Pkt) 30 ml PO DAILY RUEL Last Admin: 05/27/17 09:30 Dose: 30 ml Calcitriol (Rocaltrol -) 0.25 mcg PO DAILY RUEL Last Admin: 05/27/17 09:29 Dose: 0.25 mcg Chlorhexidine Gluconate (Hibiclens For Decolonization -) 1 applic TP HS RUEL Last Admin: 05/26/17 21:39 Dose: 1 applic Gabapentin (Neurontin -) 100 mg NGT TID RUEL Last Admin: 05/27/17 06:21 Dose: 100 mg Hydrocortisone Sodium Succinate (Solu-Cortef -) 100 mg IVPB Q8H-IV RUEL Last Admin: 05/27/17 09:29 Dose: 100 mg Norepinephrine Bitartrate 8, (000 mcg/ Dextrose) 500 mls @ 18.75 mls/hr IV TITR RUEL; 5 MCG/MIN PRN Reason: Protocol Last Titration: 05/27/17 09:50 Dose: 2 mcg/min, 7.5 mls/hr Meropenem 500 mg/ Dextrose 100 mls @ 200 mls/hr IVPB BID RUEL Last Admin: 05/27/17 09:30 Dose: 200 mls/hr Midazolam HCl 100 mg/ Sodium (Chloride) 100 mls @ 1 mls/hr IVPB TITR RUEL; 1 MG/ HR PRN Reason: Protocol Last Titration: 05/27/17 08:11 Dose: 0 mg/hr, 0 mls/hr Dobutamine HCl/Dextrose (Dobutamine 250 Mg/D5w -) 250,000 mcg in 250 mls @ 24.889 mls/hr IV TITR RUEL; 5 MCG/KG/MIN PRN Reason: Protocol Last Admin: 05/26/17 18:57 Dose: 5 mcg/kg/min, 24.889 mls/hr Sodium Chloride (Normal Saline -) 250 mls @ 3,000 mls/hr IV PRN PRN PRN Reason: Hypotension during Dialysis Stop: 05/27/17 15:29 Potassium Chloride 10 meq/ (Sodium Chloride) 105 mls @ 100 mls/hr IVPB Q60M [facility] Stop: 05/27/17 11:59 Last Admin: 05/27/17 09:39 Dose: 100 mls/hr Insulin Aspart (Novolog Vial Sliding Scale -) 1 vial SQ ACHS [facility] PRN Reason: Protocol Last Admin: 05/27/17 06:21 Dose: 4 units Midodrine (Proamatine -) 5 mg PO TID-MID [facility] Last Admin: 05/27/17 09:30 Dose: 5 mg Mometasone Furoate (Asmanex 220mcg -) 1 puff IH HS [facility] Last Admin: 05/26/17 21:39 Dose: Not Given Morphine Sulfate (Morphine Sulfate) 2 mg IVPUSH Q6H PRN PRN Reason: PAIN LEVEL 1-5 Last Admin: 05/26/17 18:36 Dose: 2 mg Multivit/Ca Carb/B Cmplx/FA/Prenat (Nephro-Pancho -) 1 tablet PO DAILY [facility] Last Admin: 05/27/17 09:29 Dose: 1 tablet Pantoprazole Sodium (Protonix Iv) 40 mg IVPUSH BID [facility] Last Admin: 05/27/17 09:29 Dose: 40 mg - Objective Vital Signs: Vital Signs Temperature 97.6 F 05/27/17 10:14 Pulse Rate 82 05/27/17 10:14 Respiratory Rate 15 05/27/17 10:14 Blood Pressure 116/55 05/27/17 10:14 O2 Sat by Pulse Oximetry (%) 100 05/27/17 08:00 Constitutional: Yes: No Distress Cardiovascular: Yes: Regular Rate and Rhythm Respiratory: Yes: Diminished Gastrointestinal: Yes: Normal Bowel Sounds, Soft. No: Tenderness Extremities: Yes: Other (gangrene) Edema: Yes (proximal to gangrene) Labs: CBC, BMP 05/27/17 05:50 05/27/17 05:50 INR, PTT INR 1.22 (0.82-1.09) H 05/27/17 05:50 Fibrinogen 156.0 mg/dL (238-498) L 05/27/17 05:50 Problem List - Problems (1) Anemia Code(s): D64.9 - ANEMIA, UNSPECIFIED (2) CAD (coronary artery disease) Code(s): I25.10 - ATHSCL HEART DISEASE OF [place] CORONARY ARTERY W/O ANG PCTRS (3) ESRD (end stage renal disease) Code(s): N18.6 - END STAGE RENAL DISEASE (4) GI bleed Code(s): K92.2 - GASTROINTESTINAL HEMORRHAGE, UNSPECIFIED (5) Gangrene Code(s): I96 - GANGRENE, NOT ELSEWHERE CLASSIFIED (6) H/O heart valve replacement with bioprosthetic valve Code(s): Z95.3 - PRESENCE OF XENOGENIC HEART VALVE (7) Hx of CABG Code(s): Z95.1 - PRESENCE OF AORTOCORONARY BYPASS GRAFT (8) Lower GI bleed Code(s): K92.2 - GASTROINTESTINAL HEMORRHAGE, UNSPECIFIED (9) Sepsis Code(s): A41.9 - SEPSIS, UNSPECIFIED ORGANISM Assessment/Plan A/P Hypovolemic shock GI bleeding ESRD on HD CAD , s/p CABG, MV and TV replacement AMS Gangrene of rt foot and left ring finger hypothermia-- on Solucortef thrombocytopenia -- on Levophed GTT tapering -- on Dobutamine -- feedings on hold -- repeat CBC -- continue with iv antibiotics -- cultures negative -- prognosis poor
[2017-05-27] MEDS ORDERED: PROPOFOL 1,000,000 MCG/100 ML VIAL ONE (11:43)
[2017-05-27] MEDS: PROPOFOL 1,000,000 MCG/100 ML VIAL IVPB SCH (11:52)
--- NOTE | 2017-05-27 12:10 | PN ---
<Sander Infante - Last Filed: 05/27/17 11:54> Physical Exam: SERVICE: Hematology and Oncology SUBJECTIVE: Patient is intubated and on pressors, sedation, and mechanical ventilation. Weaning trial planned today by ICU team. Per nurse, patient had a large blood clot per rectum, no other acute events overnight. OBJECTIVE: Vital Signs Period Temp Pulse Resp BP Sys/Ceron Pulse Ox Last 24 Hr 16 F-98.8 F 69-96 14-22 94-129/45-62 100-100 GENERAL: intubated and mechanically vented, respond to painful and minimal stimuli, RSS HEAD: AT, NC LUNGS: obscured lung sounds HEART: distant heart sounds ABDOMEN: Soft, nontender, nondistended EXTREMITIES: dressing over b/l foot CBCD WBC 7.9 K/mm3 (4.0-10.0) 05/27/17 05:50 RBC 3.24 M/mm3 (3.60-5.2) L 05/27/17 05:50 Hgb 9.0 GM/dL (10.7-15.3) L 05/27/17 05:50 Hct 27.3 % (32.4-45.2) L 05/27/17 05:50 MCV 84.2 fl (80-96) 05/27/17 05:50 MCHC 33.1 g/dl (32.0-36.0) 05/27/17 05:50 RDW 22.9 % (11.6-15.6) H 05/27/17 05:50 Plt Count 31 K/MM3 (134-434) L* 05/27/17 05:50 MPV 8.5 fl (7.5-11.1) 05/27/17 05:50 CMP Sodium 135 mmol/L (136-145) L 05/27/17 05:50 Potassium 3.4 mmol/L (3.5-5.1) L 05/27/17 05:50 Chloride 98 mmol/L (98-107) 05/27/17 05:50 Carbon Dioxide 26 mmol/L (21-32) 05/27/17 05:50 Anion Gap 11 (8-16) 05/27/17 05:50 BUN 30 mg/dL (7-18) H 05/27/17 05:50 Creatinine 3.0 mg/dL (0.55-1.02) H 05/27/17 05:50 Creat Clearance w eGFR 16.03 (>60) 05/27/17 05:50 Calcium 7.2 mg/dL (8.5-10.1) L 05/27/17 05:50 Total Bilirubin 2.4 mg/dL (0.2-1.0) H 05/27/17 05:50 AST 72 U/L (15-37) H 05/27/17 05:50 ALT 22 U/L (12-78) 05/27/17 05:50 Alkaline Phosphatase 105 U/L (45-117) 05/27/17 05:50 Total Protein 5.3 g/dl (6.4-8.2) L 05/27/17 05:50 Albumin 1.8 g/dl (3.4-5.0) L 05/27/17 05:50 Active Medications Generic Name Dose Route Start Last Admin Trade Name Freq PRN Reason Stop Dose Admin Albuterol/Ipratropium 1 amp 05/21/17 18:00 05/27/17 10:20 Duoneb - NEB 1 amp Q4HPO RUEL Administration Amino Acids 30 ml 05/26/17 10:00 05/27/17 09:30 Prosource No Carb Liquid Pkt PO 30 ml DAILY RUEL Administration Calcitriol 0.25 mcg 05/23/17 10:45 05/27/17 09:29 Rocaltrol - PO 0.25 mcg DAILY RUEL Administration Chlorhexidine Gluconate 1 applic 05/21/17 22:00 05/26/17 21:39 Hibiclens For Decolonization - TP 1 applic HS RUEL Administration Gabapentin 100 mg 05/26/17 22:00 05/27/17 06:21 Neurontin - NGT 100 mg TID RUEL Administration Hydrocortisone Sodium Succinate 100 mg 05/23/17 18:00 05/27/17 09:29 Solu-Cortef - IVPB 100 mg Q8H-IV RUEL Administration Norepinephrine Bitartrate 8, 500 mls @ 18.75 mls/hr 05/21/17 16:45 05/27/17 11:51 000 mcg/ Dextrose IV 0 mcg/min TITR RUEL 0 mls/hr Protocol Titration 5 MCG/MIN Meropenem 500 mg/ Dextrose 100 mls @ 200 mls/hr 05/23/17 08:00 05/27/17 09:30 IVPB 200 mls/hr BID RUEL Administration Dobutamine HCl/Dextrose 250,000 mcg in 250 mls @ 24.889 mls/hr 05/23/17 16:45 05/26/17 18:57 Dobutamine 250 Mg/D5w - IV 5 mcg/kg/min TITR RUEL 24.889 mls/hr Protocol Administration 5 MCG/KG/MIN Sodium Chloride 250 mls @ 3,000 mls/hr 05/26/17 15:30 Normal Saline - IV 05/27/17 15:29 PRN PRN Hypotension during Dialysis Potassium Chloride 10 meq/ 105 mls @ 100 mls/hr 05/27/17 09:00 05/27/17 11:17 Sodium Chloride IVPB 05/27/17 11:59 100 mls/hr Q60M RUEL Administration Propofol 1,000,000 mcg in 100 mls @ 2.754 mls/hr 05/27/17 11:15 05/27/17 11: 52 Diprivan - IVPB 5 mcg/kg/min TITR RUEL 2.754 mls/hr Protocol Administration 5 MCG/KG/MIN Insulin Aspart 1 vial 05/22/17 22:00 05/27/17 06:21 Novolog Vial Sliding Scale - SQ 4 units ACHS RUEL Administration Protocol Midodrine 5 mg 05/21/17 23:15 05/27/17 09:30 Proamatine - PO 5 mg TID-MID RUEL Administration Mometasone Furoate 1 puff 05/21/17 22:00 05/26/17 21:39 Asmanex 220mcg - IH Not Given HS RUEL Morphine Sulfate 2 mg 05/26/17 15:27 05/26/17 18:36 Morphine Sulfate IVPUSH 2 mg Q6H PRN Administration PAIN LEVEL 1-5 Multivit/Ca Carb/B Cmplx/FA/Prenat 1 tablet 05/22/17 10:00 05/27/17 09:29 Nephro-Pancho - PO 1 tablet DAILY RUEL Administration Pantoprazole Sodium 40 mg 05/25/17 10:00 05/27/17 09:29 Protonix Iv IVPUSH 40 mg BID RUEL Administration ASSESSMENT/PLAN: 56 yo F h/o ESRD on HD, CAD s/p CABG, DM, HTN, chronic LE gangrene admitted to the ICU for septic shock. Coagulopathy and elevated PT/PTT: likely shock liver considering her worsening liver chemistry with septic shock vs. DIC Visit type - Emergency Visit Emergency Visit: No - New Patient This patient is new to me today: Yes Date on this admission: 05/27/17 - Critical Care Critical Care patient: Yes Total Critical Care Time (in minutes): 20 - Discharge Referral Referred to [facility] Med P.C.: No <Jessica Salomon - Last Filed: 05/27/17 12:46> Physical Exam: ATTENDING PHYSICIAN STATEMENT I saw and evaluated the patient. I reviewed the resident's note and discussed the case with the resident. I agree with the resident's findings and plan as documented. ASSESSMENT AND PLAN: Coagulopathy/Thrombocytopenia: multi-factorial transfuse monodonor platelets/cryo/FFP if actively beeding or platelets < 20-30, 000 or fibrinogen < 100 Guarded prognosis pal care eval rest per ICU Problem List - Problems (1) Coagulopathy Code(s): D68.9 - COAGULATION DEFECT, UNSPECIFIED (2) Gangrene Code(s): I96 - GANGRENE, NOT ELSEWHERE CLASSIFIED (3) GI bleed Code(s): K92.2 - GASTROINTESTINAL HEMORRHAGE, UNSPECIFIED (4) Hx of CABG Code(s): Z95.1 - PRESENCE OF AORTOCORONARY BYPASS GRAFT
--- NOTE | 2017-05-27 12:19 | PN ---
Teaching Attending Note Name of Resident: Den Dsouza ATTENDING PHYSICIAN STATEMENT I saw and evaluated the patient. I reviewed the resident's note and discussed the case with the resident. I agree with the resident's findings and plan as documented. SUBJECTIVE: Pt seen and examined in the ICU. Remains intubated, sedated. On lower dose levophed and dobutamine gtts. OBJECTIVE: Last Vital Signs Temp Pulse Resp BP Pulse Ox 97.6 F 86 17 113/53 100 05/27/17 10:00 05/27/17 11:58 05/27/17 11:58 05/27/17 11:58 05/27/17 09:00 Intake & Output 05/24/17 05/25/17 05/26/17 05/27/17 23:59 23:59 23:59 23:59 Intake Total 1495 1903.4 1860.7 810.4 Balance 1495 1903.4 1860.7 810.4 Weight 87.044 kg 88.405 kg 90.038 kg 91.807 kg Gen: intubated, sedated Heart: RRR Lung: decreased breath sounds at the bases Abd: soft, nontender Ext: + anasarca, gangrenous feet CBC, BMP 05/27/17 05:50 05/27/17 05:50 Active Medications Albuterol/Ipratropium (Duoneb -) 1 amp NEB Q4HPO [facility] Last Admin: 05/27/17 10:20 Dose: 1 amp Amino Acids (Prosource No Carb Liquid Pkt) 30 ml PO DAILY RUEL Last Admin: 05/27/17 09:30 Dose: 30 ml Calcitriol (Rocaltrol -) 0.25 mcg PO DAILY [facility] Last Admin: 05/27/17 09:29 Dose: 0.25 mcg Chlorhexidine Gluconate (Hibiclens For Decolonization -) 1 applic TP HS [facility]EL Last Admin: 05/26/17 21:39 Dose: 1 applic Gabapentin (Neurontin -) 100 mg NGT TID [facility] Last Admin: 05/27/17 06:21 Dose: 100 mg Hydrocortisone Sodium Succinate (Solu-Cortef -) 100 mg IVPB Q8H-IV [facility] Last Admin: 05/27/17 09:29 Dose: 100 mg Norepinephrine Bitartrate 8, (000 mcg/ Dextrose) 500 mls @ 18.75 mls/hr IV TITR RUEL; 5 MCG/MIN PRN Reason: Protocol Last Titration: 05/27/17 11:51 Dose: 0 mcg/min, 0 mls/hr Meropenem 500 mg/ Dextrose 100 mls @ 200 mls/hr IVPB BID [facility] Last Admin: 05/27/17 09:30 Dose: 200 mls/hr Dobutamine HCl/Dextrose (Dobutamine 250 Mg/D5w -) 250,000 mcg in 250 mls @ 24.889 mls/hr IV TITR RUEL; 5 MCG/KG/MIN PRN Reason: Protocol Last Admin: 05/26/17 18:57 Dose: 5 mcg/kg/min, 24.889 mls/hr Sodium Chloride (Normal Saline -) 250 mls @ 3,000 mls/hr IV PRN PRN PRN Reason: Hypotension during Dialysis Stop: 05/27/17 15:29 Propofol (Diprivan -) 1,000,000 mcg in 100 mls @ 2.754 mls/hr IVPB TITR RUEL; 5 MCG/KG/MIN PRN Reason: Protocol Last Admin: 05/27/17 11:52 Dose: 5 mcg/kg/min, 2.754 mls/hr Insulin Aspart (Novolog Vial Sliding Scale -) 1 vial SQ ACHS RUEL PRN Reason: Protocol Last Admin: 05/27/17 06:21 Dose: 4 units Midodrine (Proamatine -) 5 mg PO TID-MID [facility] Last Admin: 05/27/17 09:30 Dose: 5 mg Mometasone Furoate (Asmanex 220mcg -) 1 puff IH HS [facility] Last Admin: 05/26/17 21:39 Dose: Not Given Morphine Sulfate (Morphine Sulfate) 2 mg IVPUSH Q6H PRN PRN Reason: PAIN LEVEL 1-5 Last Admin: 05/26/17 18:36 Dose: 2 mg Multivit/Ca Carb/B Cmplx/FA/Prenat (Nephro-Pancho -) 1 tablet PO DAILY [facility] Last Admin: 05/27/17 09:29 Dose: 1 tablet Pantoprazole Sodium (Protonix Iv) 40 mg IVPUSH BID [facility] Last Admin: 05/27/17 09:29 Dose: 40 mg ASSESSMENT AND PLAN: Acute Hypoxic Respiratory Failure Shock - ?Septic vs Cardiogenic GI Bleed +Troponins likely [place] Ischemia LV Systolic Dysfunction Thrombocytopenia Coagulopathy Gangrene CAD s/p CABG ESRD on HD HTN DM - continue empiric antibiotics - titrate pressors, inotropes to maintain MAP >65 - HD per renal with ultrafiltration - continue stress dose steroids - monitor platelets, coags, fibrinogen level - transfuse as needed - lighten sedation in AM to assess mental status - spontaneous breathing trials as tolerated when mental status improved - enteral feeds - DVT/GI prophylaxis - continue ICU monitoring critical care time spent in reviewing chart, evaluating patient and formulating plan 35 min
[2017-05-27] MEDS: DOBUTAMINE 250 MG/D5W - 250,000 MCG/250 ML INFUS.BAG IV SCH ×3 (12:21→21:20)
--- NOTE | 2017-05-27 13:10 | PN ---
Physical Exam: SUBJECTIVE: Patient seen and examined No acute events overnight. Pressors being weaned. This am, pt passed a blood clot. Tube feeds held. Pt still sedated on vent. OBJECTIVE: Vital Signs Period Temp Pulse Resp BP Sys/Ceron Pulse Ox Last 24 Hr 16 F-98.8 F 69-92 14-22 94-129/45-62 100-100 GENERAL: middle aged female, lying in bed, on vent, sedated, with anasarca HEENT: ET tube in place, NG tube in place LUNGS: mechanical breath sounds HEART: tachycardic ABDOMEN: obese, soft, NT EXTREMITIES: 2+ pitting edema in all 4 extremities. gangrene in b/l feet. wrists and ankles cold to palpation. no distal pulses able to be palpated NEUROLOGICAL: unresponsive Laboratory Results - last 24 hr 05/26/17 05/26/17 05/26/17 06:44 17:00 17:00 WBC 7.8 RBC 3.24 L Hgb 9.0 L Hct 27.0 L MCV 83.3 MCH 27.9 MCHC 33.5 RDW 23.0 H Plt Count 40 L D MPV 8.7 Total Counted 100 Neutrophils % No Result Required. Neutrophils % (Manual) 94.0 H* Lymphocytes % No Result Required. Lymphocytes % (Manual) 1.0 L Monocytes % Monocytes % (Manual) 5 Eosinophils % Basophils % Differential Comment Man diff performed Platelet Estimate Mod decreased Platelet Comment No clumping noted Polychromasia 1+ Poikilocytosis 2+ Anisocytosis 3+ Microcytosis 1+ Macrocytosis 1+ Target Cells 2+ Ovalocytes 1+ PT with INR 13.90 H INR 1.23 H PTT (Actin FS) 36.5 H Fibrinogen 156.0 L D Puncture Site Arterial line ABG pH 7.47 H D ABG pCO2 at Pt Temp 32.0 L ABG pO2 at Pt Temp 165.0 H* ABG HCO3 23.3 ABG O2 Sat (Measured) 100.0 H* ABG O2 Content No Result Required. ABG Base Excess 0.2 Dilip Test Positive O2 Delivery Device Vent Oxygen Flow Rate 4% Sodium Potassium Chloride Carbon Dioxide Anion Gap BUN Creatinine Creat Clearance w eGFR POC Glucometer Random Glucose Calcium Phosphorus Magnesium Total Bilirubin AST ALT Alkaline Phosphatase Total Protein Albumin 05/26/17 05/26/17 05/26/17 17:28 21:51 23:30 WBC 8.1 RBC 3.30 L Hgb 9.1 L Hct 27.7 L MCV 84.0 MCH 27.7 MCHC 33.0 RDW 22.8 H Plt Count 31 L* D MPV 9.2 Total Counted Neutrophils % 93.9 H Neutrophils % (Manual) Lymphocytes % 1.6 L D Lymphocytes % (Manual) Monocytes % 4.4 Monocytes % (Manual) Eosinophils % 0.0 D Basophils % 0.1 Differential Comment Platelet Estimate Platelet Comment Polychromasia Poikilocytosis Anisocytosis Microcytosis Macrocytosis Target Cells Ovalocytes PT with INR INR PTT (Actin FS) Fibrinogen Puncture Site ABG pH ABG pCO2 at Pt Temp ABG pO2 at Pt Temp ABG HCO3 ABG O2 Sat (Measured) ABG O2 Content ABG Base Excess Dilip Test O2 Delivery Device Oxygen Flow Rate Sodium Potassium Chloride Carbon Dioxide Anion Gap BUN Creatinine Creat Clearance w eGFR POC Glucometer 122.89910 152.83583 Random Glucose Calcium Phosphorus Magnesium Total Bilirubin AST ALT Alkaline Phosphatase Total Protein Albumin 05/26/17 05/27/17 05/27/17 23:30 05:50 05:50 WBC 7.9 RBC 3.24 L Hgb 9.0 L Hct 27.3 L MCV 84.2 MCH 27.9 MCHC 33.1 RDW 22.9 H Plt Count 31 L* MPV 8.5 Total Counted Neutrophils % 92.8 H Neutrophils % (Manual) Lymphocytes % 2.5 L D Lymphocytes % (Manual) Monocytes % 4.3 Monocytes % (Manual) Eosinophils % 0.1 D Basophils % 0.3 Differential Comment Platelet Estimate Platelet Comment Polychromasia Poikilocytosis Anisocytosis Microcytosis Macrocytosis Target Cells Ovalocytes PT with INR 14.00 H 13.80 H INR 1.24 H 1.22 H PTT (Actin FS) 36.6 H 39.6 H Fibrinogen 138.0 L 156.0 L Puncture Site ABG pH ABG pCO2 at Pt Temp ABG pO2 at Pt Temp ABG HCO3 ABG O2 Sat (Measured) ABG O2 Content ABG Base Excess Dilip Test O2 Delivery Device Oxygen Flow Rate Sodium Potassium Chloride Carbon Dioxide Anion Gap BUN Creatinine Creat Clearance w eGFR POC Glucometer Random Glucose Calcium Phosphorus Magnesium Total Bilirubin AST ALT Alkaline Phosphatase Total Protein Albumin 05/27/17 05/27/17 05:50 06:00 WBC RBC Hgb Hct MCV MCH MCHC RDW Plt Count MPV Total Counted Neutrophils % Neutrophils % (Manual) Lymphocytes % Lymphocytes % (Manual) Monocytes % Monocytes % (Manual) Eosinophils % Basophils % Differential Comment Platelet Estimate Platelet Comment Polychromasia Poikilocytosis Anisocytosis Microcytosis Macrocytosis Target Cells Ovalocytes PT with INR INR PTT (Actin FS) Fibrinogen Puncture Site ABG pH ABG pCO2 at Pt Temp ABG pO2 at Pt Temp ABG HCO3 ABG O2 Sat (Measured) ABG O2 Content ABG Base Excess Dilip Test O2 Delivery Device Oxygen Flow Rate Sodium 135 L Potassium 3.4 L Chloride 98 Carbon Dioxide 26 Anion Gap 11 BUN 30 H Creatinine 3.0 H Creat Clearance w eGFR 16.03 POC Glucometer 214.60047 Random Glucose 157 H Calcium 7.2 L Phosphorus 3.5 Magnesium 1.6 L Total Bilirubin 2.4 H AST 72 H ALT 22 Alkaline Phosphatase 105 Total Protein 5.3 L Albumin 1.8 L Active Medications Generic Name Dose Route Start Last Admin Trade Name Freq PRN Reason Stop Dose Admin Albuterol/Ipratropium 1 amp 05/21/17 18:00 05/27/17 10:20 Duoneb - NEB 1 amp Q4HPO [facility] Administration Amino Acids 30 ml 05/26/17 10:00 05/27/17 09:30 Prosource No Carb Liquid Pkt PO 30 ml DAILY [facility] Administration Calcitriol 0.25 mcg 05/23/17 10:45 05/27/17 09:29 Rocaltrol - PO 0.25 mcg DAILY [facility] Administration Chlorhexidine Gluconate 1 applic 05/21/17 22:00 05/26/17 21:39 Hibiclens For Decolonization - TP 1 applic HS [facility] Administration Gabapentin 100 mg 05/26/17 22:00 05/27/17 06:21 Neurontin - NGT 100 mg TID [facility] Administration Hydrocortisone Sodium Succinate 100 mg 05/23/17 18:00 05/27/17 09:29 Solu-Cortef - IVPB 100 mg Q8H-IV [facility] Administration Norepinephrine Bitartrate 8, 500 mls @ 18.75 mls/hr 05/21/17 16:45 05/27/17 11:51 000 mcg/ Dextrose IV 0 mcg/min TITR [facility] 0 mls/hr Protocol Titration 5 MCG/MIN Meropenem 500 mg/ Dextrose 100 mls @ 200 mls/hr 05/23/17 08:00 05/27/17 09:30 IVPB 200 mls/hr BID [facility] Administration Dobutamine HCl/Dextrose 250,000 mcg in 250 mls @ 24.889 mls/hr 05/23/17 16:45 05/27/17 12:21 Dobutamine 250 Mg/D5w - IV 5 mcg/kg/min TITR [facility] 24.889 mls/hr Protocol Administration 5 MCG/KG/MIN Sodium Chloride 250 mls @ 3,000 mls/hr 05/26/17 15:30 Normal Saline - IV 05/27/17 15:29 PRN PRN Hypotension during Dialysis Propofol 1,000,000 mcg in 100 mls @ 2.754 mls/hr 05/27/17 11:15 05/27/17 11: 52 Diprivan - IVPB 5 mcg/kg/min TITR [facility] 2.754 mls/hr Protocol Administration 5 MCG/KG/MIN Insulin Aspart 1 vial 05/22/17 22:00 05/27/17 06:21 Novolog Vial Sliding Scale - SQ 4 units ACHS RU[facility] Administration Protocol Midodrine 5 mg 05/21/17 23:15 05/27/17 09:30 Proamatine - PO 5 mg TID-MID [facility] Administration Mometasone Furoate 1 puff 05/21/17 22:00 05/26/17 21:39 Asmanex 220mcg - IH Not Given HS [facility] Morphine Sulfate 2 mg 05/26/17 15:27 05/26/17 18:36 Morphine Sulfate IVPUSH 2 mg Q6H PRN Administration PAIN LEVEL 1-5 Multivit/Ca Carb/B Cmplx/FA/Prenat 1 tablet 05/22/17 10:00 05/27/17 09:29 Nephro-Pancho - PO 1 tablet DAILY [facility] Administration Pantoprazole Sodium 40 mg 05/25/17 10:00 05/27/17 09:29 Protonix Iv IVPUSH 40 mg BID [facility] Administration ASSESSMENT/PLAN: 56F w/ hx of DM, HTN, SD s/p CABG (03/2017), ESRD on Hemodialysis (M/W/F), and hemorrhoids who presented with BRBPR, admitted to ICU with shock, now s/p intubation on vent, on pressors and abx. #GI -likely lower GI bleed source from hemorrhoids, can't r/o other lower sources (anal fissure, rectal or colonic mass, diverticulosis, AVM) or upper ( PUD, gastritis/esophagitis, etc). Etiology possibly 2/2 coagulopathy -Hgb of 9 today, stable -IV protonix -GI on board, Dr. Iniguez -home ASA held -new episode of GI bleeding this am. continue to monitor #CV -troponinemia, likely due to clearance failure as pt is ESRD. Trops peaked at 2.02 -shock: continue levo (currently @ 2) and dobutamine (currently @ 5). wean as tolerated. continue hydrocortisone 100mg q8h -CVP: 19--> 16 -cardiology on board, Dr. Stapleton. recs appreciated -b/l gangrenous feet. vascular on board, Dr. Smith #Resp -intubated on vent. wean as tolerated -versed gtt changed to propofol #hematology -hematology on board, Dr. Salomon, recs appreciated -elevated PT, INR, and PTT in conjunction with anemia and thrombocytopenia and pt's comorbidities and clinical presentation support diagnosis of coaguloapathy. -s/p FFP, vit. K, DDAVP, platelets -continue to trend labs #nephro -renal on board, Dr. Plummer. recs appreciated. Pt received HD yesterday. #neuro -sedated #endo -DM, diet controlled -BGM q6h -continue home gabapentin 100mg HS #ID -dry gangrene on b/l feet -afebrile, minimal leukocytosis. Cxs negative -ID on board, Dr. Collins. continue meropenem #FEN/ppx -pressors -repleted K and MG -tube feeds held due to GI bleed -protonix -no DVT ppx as elevated INR and GI bleed #Dispo -full code Case discussed with attending, Dr. Vargas. -Den Dsouza MD PGY1 ICU Team Visit type - Emergency Visit Emergency Visit: Yes ED Registration Date: 05/21/17 Care time: The patient presented to the Emergency Department on the above date and was hospitalized for further evaluation of their emergent condition. - New Patient This patient is new to me today: No - Critical Care Critical Care patient: Yes Total Critical Care Time (in minutes): 37 Critical Care Statement: The care of this patient involved high complexity decision making to prevent further life threatening deterioration of the patient 's condition and/or to evaluate & treat vital organ system(s) failure or risk of failure.
--- NOTE | 2017-05-27 13:23 | PN ---
Progress Note (short form) - Note Progress Note: remains intubated sedated off levophed still on steroids and meropenem Vital Signs Period Temp Pulse Resp BP Sys/Ceron Pulse Ox Last 24 Hr 16 F-98.8 F 69-92 14-22 94-129/45-62 100-100 cor-rrr lungs clear abd soft,nt ext +dressings intact CBC, BMP 05/27/17 05:50 05/27/17 05:50 Microbiology 05/23/17 08:20 Blood - Central Line Blood Culture - Preliminary NO GROWTH OBTAINED AFTER 96 HOURS, INCUBATION TO CONTINUE FOR 1 DAYS. 05/23/17 08:20 Blood - Central Line Blood Culture - Preliminary NO GROWTH OBTAINED AFTER 96 HOURS, INCUBATION TO CONTINUE FOR 1 DAYS. 05/21/17 20:00 Blood - Peripheral Venous Blood Culture - Final NO GROWTH AFTER 5 DAYS INCUBATION 05/21/17 19:56 Blood - Peripheral Venous Blood Culture - Final NO GROWTH AFTER 5 DAYS INCUBATION Current Medications Albuterol/Ipratropium (Duoneb -) 1 amp NEB Q4HPO [facility] Last Admin: 05/27/17 10:20 Dose: 1 amp Amino Acids (Prosource No Carb Liquid Pkt) 30 ml PO DAILY [facility] Last Admin: 05/27/17 09:30 Dose: 30 ml Calcitriol (Rocaltrol -) 0.25 mcg PO DAILY [facility] Last Admin: 05/27/17 09:29 Dose: 0.25 mcg Chlorhexidine Gluconate (Hibiclens For Decolonization -) 1 applic TP HS [facility] Last Admin: 05/26/17 21:39 Dose: 1 applic Gabapentin (Neurontin -) 100 mg NGT TID [facility] Last Admin: 05/27/17 06:21 Dose: 100 mg Hydrocortisone Sodium Succinate (Solu-Cortef -) 100 mg IVPB Q8H-IV [facility] Last Admin: 05/27/17 09:29 Dose: 100 mg Norepinephrine Bitartrate 8, (000 mcg/ Dextrose) 500 mls @ 18.75 mls/hr IV TITR RUEL; 5 MCG/MIN PRN Reason: Protocol Last Titration: 05/27/17 11:51 Dose: 0 mcg/min, 0 mls/hr Meropenem 500 mg/ Dextrose 100 mls @ 200 mls/hr IVPB BID [facility] Last Admin: 05/27/17 09:30 Dose: 200 mls/hr Dobutamine HCl/Dextrose (Dobutamine 250 Mg/D5w -) 250,000 mcg in 250 mls @ 24.889 mls/hr IV TITR [facility]; 5 MCG/KG/MIN PRN Reason: Protocol Last Admin: 05/27/17 12:21 Dose: 5 mcg/kg/min, 24.889 mls/hr Sodium Chloride (Normal Saline -) 250 mls @ 3,000 mls/hr IV PRN PRN PRN Reason: Hypotension during Dialysis Stop: 05/27/17 15:29 Propofol (Diprivan -) 1,000,000 mcg in 100 mls @ 2.754 mls/hr IVPB TITR [facility]; 5 MCG/KG/MIN PRN Reason: Protocol Last Admin: 05/27/17 11:52 Dose: 5 mcg/kg/min, 2.754 mls/hr Insulin Aspart (Novolog Vial Sliding Scale -) 1 vial SQ ACHS [facility] PRN Reason: Protocol Last Admin: 05/27/17 06:21 Dose: 4 units Midodrine (Proamatine -) 5 mg PO TID-MID [facility] Last Admin: 05/27/17 09:30 Dose: 5 mg Mometasone Furoate (Asmanex 220mcg -) 1 puff IH HS [facility] Last Admin: 05/26/17 21:39 Dose: Not Given Morphine Sulfate (Morphine Sulfate) 2 mg IVPUSH Q6H PRN PRN Reason: PAIN LEVEL 1-5 Last Admin: 05/26/17 18:36 Dose: 2 mg Multivit/Ca Carb/B Cmplx/FA/Prenat (Nephro-Pancho -) 1 tablet PO DAILY [facility] Last Admin: 05/27/17 09:29 Dose: 1 tablet Pantoprazole Sodium (Protonix Iv) 40 mg IVPUSH BID [facility] Last Admin: 05/27/17 09:29 Dose: 40 mg a/p sepsis- unspecified GI bleed respiratory failure recent CABG-bioMVR/TVR esrd/hd severe PAD with dry gangrene of both legs thrombocytopenia- most likely secondary to sepsis continue meropenem day #4 f/u cultures-negative to date hemodymics a bit improved, pressors being tapered consider taper steroids overall prognosis is poor Problem List - Problems (1) Sepsis Code(s): A41.9 - SEPSIS, UNSPECIFIED ORGANISM (2) GI bleed Code(s): K92.2 - GASTROINTESTINAL HEMORRHAGE, UNSPECIFIED (3) Respiratory failure Code(s): J96.90 - RESPIRATORY FAILURE, UNSP, UNSP W HYPOXIA OR HYPERCAPNIA (4) Gangrene Code(s): I96 - GANGRENE, NOT ELSEWHERE CLASSIFIED (5) H/O heart valve replacement with bioprosthetic valve Code(s): Z95.3 - PRESENCE OF XENOGENIC HEART VALVE (6) ESRD (end stage renal disease) Code(s): N18.6 - END STAGE RENAL DISEASE
[2017-05-27 14:13] LABS: HBSAG SCREEN Negative (Negative); HEP A AB, IGM Negative (Negative); HEP B CORE AB, TOT Negative (Negative)
--- NOTE | 2017-05-27 14:22 | PN ---
Progress Note, Physician Chief Complaint: intubated and sedated Levophed weaning off On dobutamine History of Present Illness: 56F w/ DM, HTN, s/p CABG 03/2017 after NSTEMI at [facility] with Dr. Conrad WALTERS and TVR , ESRD on Hemodialysis (M/W/F) and PVD, who presented from [facility] for rectal bleeding. She was severely anemic and hypotensive. SP multiple PRBC and on Nor- epi. Takes aspirin, but no other AC. coumadin was stopped on 05/11. The patient denies chest pain, shortness of breath. - Current Medication List Current Medications: Active Medications Albuterol/Ipratropium (Duoneb -) 1 amp NEB Q4HPO [facility] Last Admin: 05/27/17 13:47 Dose: 1 amp Amino Acids (Prosource No Carb Liquid Pkt) 30 ml PO DAILY [facility] Last Admin: 05/27/17 09:30 Dose: 30 ml Calcitriol (Rocaltrol -) 0.25 mcg PO DAILY [facility] Last Admin: 05/27/17 09:29 Dose: 0.25 mcg Chlorhexidine Gluconate (Hibiclens For Decolonization -) 1 applic TP HS [facility] Last Admin: 05/26/17 21:39 Dose: 1 applic Gabapentin (Neurontin -) 100 mg NGT TID [facility] Last Admin: 05/27/17 06:21 Dose: 100 mg Hydrocortisone Sodium Succinate (Solu-Cortef -) 100 mg IVPB Q8H-IV [facility] Last Admin: 05/27/17 09:29 Dose: 100 mg Norepinephrine Bitartrate 8, (000 mcg/ Dextrose) 500 mls @ 18.75 mls/hr IV TITR RUEL; 5 MCG/MIN PRN Reason: Protocol Last Titration: 05/27/17 11:51 Dose: 0 mcg/min, 0 mls/hr Meropenem 500 mg/ Dextrose 100 mls @ 200 mls/hr IVPB BID [facility] Last Admin: 05/27/17 09:30 Dose: 200 mls/hr Dobutamine HCl/Dextrose (Dobutamine 250 Mg/D5w -) 250,000 mcg in 250 mls @ 24.889 mls/hr IV TITR [facility]; 5 MCG/KG/MIN PRN Reason: Protocol Last Admin: 05/27/17 12:21 Dose: 5 mcg/kg/min, 24.889 mls/hr Sodium Chloride (Normal Saline -) 250 mls @ 3,000 mls/hr IV PRN PRN PRN Reason: Hypotension during Dialysis Stop: 05/27/17 15:29 Propofol (Diprivan -) 1,000,000 mcg in 100 mls @ 2.754 mls/hr IVPB TITR RUEL; 5 MCG/KG/MIN PRN Reason: Protocol Last Titration: 05/27/17 13:27 Dose: 15 mcg/kg/min, 8.263 mls/hr Insulin Aspart (Novolog Vial Sliding Scale -) 1 vial SQ ACHS [facility] PRN Reason: Protocol Last Admin: 05/27/17 06:21 Dose: 4 units Midodrine (Proamatine -) 5 mg PO TID-MID [facility] Last Admin: 05/27/17 09:30 Dose: 5 mg Mometasone Furoate (Asmanex 220mcg -) 1 puff IH HS [facility] Last Admin: 05/26/17 21:39 Dose: Not Given Morphine Sulfate (Morphine Sulfate) 2 mg IVPUSH Q6H PRN PRN Reason: PAIN LEVEL 1-5 Last Admin: 05/26/17 18:36 Dose: 2 mg Multivit/Ca Carb/B Cmplx/FA/Prenat (Nephro-Pancho -) 1 tablet PO DAILY [facility] Last Admin: 05/27/17 09:29 Dose: 1 tablet Pantoprazole Sodium (Protonix Iv) 40 mg IVPUSH BID [facility] Last Admin: 05/27/17 09:29 Dose: 40 mg - Objective Vital Signs: Vital Signs Temperature 99 F 05/27/17 14:00 Pulse Rate 86 05/27/17 14:00 Respiratory Rate 22 05/27/17 14:00 Blood Pressure 115/56 05/27/17 14:00 O2 Sat by Pulse Oximetry (%) 100 05/27/17 09:00 Neck: Yes: Supple Cardiovascular: Yes: Regular Rate and Rhythm, JVD, S1, S2 Respiratory: Yes: Mechanically Ventilated Gastrointestinal: Yes: Soft Edema: LLE: 1+, RLE: 1+ Labs: CBC, BMP 05/27/17 05:50 05/27/17 05:50 INR, PTT INR 1.22 (0.82-1.09) H 05/27/17 05:50 Fibrinogen 156.0 mg/dL (238-498) L 05/27/17 05:50 Assessment/Plan 56F w/ DM, HTN, s/p CABG 03/2017 after NSTEMI at [facility] with Dr. Martines MVR and TVR , ESRD on Hemodialysis (M/W/F) and PVD, who presented from [facility] for rectal bleeding. She was severely anemic and hypotensive. SP multiple PRBC and on Nor- epi. Takes aspirin, but no other AC. coumadin was stopped on 05/11. The patient denies chest pain, shortness of breath. 1) Systolic CHF HD as per renal team for volume removal Vitals stable on dobutamine. Levophed weaning off No AC as admitted with severe anemia and also with thrombocytopenia. -Vent management as per ICU team. Plan is for decrease of sedation to asses mental status as per ICU team Abx as per ID
--- NOTE | 2017-05-27 15:24 | PN ---
Progress Note, Physician History of Present Illness: Pt seen and examined at bedside. She tolerated HD yesterday. She remains in the ICU. - Current Medication List Current Medications: Active Medications Albuterol/Ipratropium (Duoneb -) 1 amp NEB Q4HPO [facility] Last Admin: 05/27/17 13:47 Dose: 1 amp Amino Acids (Prosource No Carb Liquid Pkt) 30 ml PO DAILY [facility] Last Admin: 05/27/17 09:30 Dose: 30 ml Calcitriol (Rocaltrol -) 0.25 mcg PO DAILY [facility] Last Admin: 05/27/17 09:29 Dose: 0.25 mcg Chlorhexidine Gluconate (Hibiclens For Decolonization -) 1 applic TP HS [facility] Last Admin: 05/26/17 21:39 Dose: 1 applic Gabapentin (Neurontin -) 100 mg NGT TID [facility] Last Admin: 05/27/17 14:38 Dose: 100 mg Hydrocortisone Sodium Succinate (Solu-Cortef -) 100 mg IVPB Q8H-IV [facility] Last Admin: 05/27/17 09:29 Dose: 100 mg Norepinephrine Bitartrate 8, (000 mcg/ Dextrose) 500 mls @ 18.75 mls/hr IV TITR [facility]; 5 MCG/MIN PRN Reason: Protocol Last Titration: 05/27/17 11:51 Dose: 0 mcg/min, 0 mls/hr Meropenem 500 mg/ Dextrose 100 mls @ 200 mls/hr IVPB BID [facility] Last Admin: 05/27/17 09:30 Dose: 200 mls/hr Dobutamine HCl/Dextrose (Dobutamine 250 Mg/D5w -) 250,000 mcg in 250 mls @ 24.889 mls/hr IV TITR [facility]; 5 MCG/KG/MIN PRN Reason: Protocol Last Admin: 05/27/17 12:21 Dose: 5 mcg/kg/min, 24.889 mls/hr Sodium Chloride (Normal Saline -) 250 mls @ 3,000 mls/hr IV PRN PRN PRN Reason: Hypotension during Dialysis Stop: 05/27/17 15:29 Propofol (Diprivan -) 1,000,000 mcg in 100 mls @ 2.754 mls/hr IVPB TITR [facility]; 5 MCG/KG/MIN PRN Reason: Protocol Last Titration: 05/27/17 13:27 Dose: 15 mcg/kg/min, 8.263 mls/hr Insulin Aspart (Novolog Vial Sliding Scale -) 1 vial SQ ACHS [facility] PRN Reason: Protocol Last Admin: 05/27/17 14:39 Dose: 4 units Midodrine (Proamatine -) 5 mg PO TID-MID [facility] Last Admin: 05/27/17 14:39 Dose: 5 mg Mometasone Furoate (Asmanex 220mcg -) 1 puff IH HS [facility] Last Admin: 05/26/17 21:39 Dose: Not Given Morphine Sulfate (Morphine Sulfate) 2 mg IVPUSH Q6H PRN PRN Reason: PAIN LEVEL 1-5 Last Admin: 05/26/17 18:36 Dose: 2 mg Multivit/Ca Carb/B Cmplx/FA/Prenat (Nephro-Pancho -) 1 tablet PO DAILY [facility] Last Admin: 05/27/17 09:29 Dose: 1 tablet Pantoprazole Sodium (Protonix Iv) 40 mg IVPUSH BID [facility] Last Admin: 05/27/17 09:29 Dose: 40 mg - Objective Vital Signs: Vital Signs Temperature 99 F 05/27/17 14:00 Pulse Rate 84 05/27/17 14:47 Respiratory Rate 14 05/27/17 14:47 Blood Pressure 118/55 05/27/17 14:47 O2 Sat by Pulse Oximetry (%) 100 05/27/17 09:00 Constitutional: Yes: Calm Eyes: Yes: Conjunctiva Clear HENT: Yes: Atraumatic Cardiovascular: Yes: S1, S2 Respiratory: Yes: Mechanically Ventilated Gastrointestinal: Yes: Soft Genitourinary: Yes: Incontinence Musculoskeletal: Yes: Other (right foot gangrene) Edema: Yes Edema: LUE: 1+, RUE: 1+, LLE: 1+, RLE: 1+ Neurological: Yes: Lethargy Labs: CBC, BMP 05/27/17 05:50 05/27/17 05:50 INR, PTT INR 1.22 (0.82-1.09) H 05/27/17 05:50 Fibrinogen 156.0 mg/dL (238-498) L 05/27/17 05:50 Problem List - Problems (1) ESRD (end stage renal disease) Code(s): N18.6 - END STAGE RENAL DISEASE (2) CAD (coronary artery disease) Code(s): I25.10 - ATHSCL HEART DISEASE OF [place] CORONARY ARTERY W/O ANG PCTRS (3) Hx of CABG Code(s): Z95.1 - PRESENCE OF AORTOCORONARY BYPASS GRAFT (4) Anemia Code(s): D64.9 - ANEMIA, UNSPECIFIED (5) GI bleed Code(s): K92.2 - GASTROINTESTINAL HEMORRHAGE, UNSPECIFIED Assessment/Plan Current Medications Generic Name Dose Route Start Last Admin Trade Name Freq PRN Reason Stop Dose Admin Albuterol/Ipratropium 1 amp 05/21/17 18:00 05/27/17 13:47 Duoneb - NEB 1 amp Q4HPO [facility] Administration Amino Acids 30 ml 05/26/17 10:00 05/27/17 09:30 Prosource No Carb Liquid Pkt PO 30 ml DAILY [facility] Administration Calcitriol 0.25 mcg 05/23/17 10:45 05/27/17 09:29 Rocaltrol - PO 0.25 mcg DAILY [facility] Administration Chlorhexidine Gluconate 1 applic 05/21/17 22:00 05/26/17 21:39 Hibiclens For Decolonization - TP 1 applic HS [facility] Administration Gabapentin 100 mg 05/26/17 22:00 05/27/17 14:38 Neurontin - NGT 100 mg TID [facility] Administration Hydrocortisone Sodium Succinate 100 mg 05/23/17 18:00 05/27/17 09:29 Solu-Cortef - IVPB 100 mg Q8H-IV [facility] Administration Norepinephrine Bitartrate 8, 500 mls @ 18.75 mls/hr 05/21/17 16:45 05/27/17 11:51 000 mcg/ Dextrose IV 0 mcg/min TITR [facility] 0 mls/hr Protocol Titration 5 MCG/MIN Meropenem 500 mg/ Dextrose 100 mls @ 200 mls/hr 05/23/17 08:00 05/27/17 09:30 IVPB 200 mls/hr BID [facility] Administration Dobutamine HCl/Dextrose 250,000 mcg in 250 mls @ 24.889 mls/hr 05/23/17 16:45 05/27/17 12:21 Dobutamine 250 Mg/D5w - IV 5 mcg/kg/min TITR [facility] 24.889 mls/hr Protocol Administration 5 MCG/KG/MIN Sodium Chloride 250 mls @ 3,000 mls/hr 05/26/17 15:30 Normal Saline - IV 05/27/17 15:29 PRN PRN Hypotension during Dialysis Propofol 1,000,000 mcg in 100 mls @ 2.754 mls/hr 05/27/17 11:15 05/27/17 13: 27 Diprivan - IVPB 15 mcg/kg/min TITR [facility] 8.263 mls/hr Protocol Titration 5 MCG/KG/MIN Insulin Aspart 1 vial 05/22/17 22:00 05/27/17 14:39 Novolog Vial Sliding Scale - SQ 4 units ACHS [facility] Administration Protocol Midodrine 5 mg 05/21/17 23:15 05/27/17 14:39 Proamatine - PO 5 mg TID-MID [facility] Administration Mometasone Furoate 1 puff 05/21/17 22:00 05/26/17 21:39 Asmanex 220mcg - IH Not Given HS [facility] Morphine Sulfate 2 mg 05/26/17 15:27 05/26/17 18:36 Morphine Sulfate IVPUSH 2 mg Q6H PRN Administration PAIN LEVEL 1-5 Multivit/Ca Carb/B Cmplx/FA/Prenat 1 tablet 05/22/17 10:00 05/27/17 09:29 Nephro-Pancho - PO 1 tablet DAILY [facility] Administration Pantoprazole Sodium 40 mg 05/25/17 10:00 05/27/17 09:29 Protonix Iv IVPUSH 40 mg BID [facility] Administration Impression 1. ESRD 2. GI bleed likely from hemorrhoids 3. hemorrhoids 4. anemia 5. CAD 6. s/p CABG 7. DM 8. hypotension 9. lactic acidosis Plan - will assess for HD in am - cont current meds - pulm input appreciated - will UF volume on HD tomorrow if bp is stable - pressors to a map of 65 - monitor blood pressure - abx per ID - oncology eval appreciated - monitor coags - prognosis is poor - will follow Dr Plummer
[2017-05-27 18:07] LABS: BASO % 0.4 % (0-2.0); HEMATOCRIT 26.6 % (32.4-45.2); HEMOGLOBIN 8.7 GM/dL (10.7-15.3); LYMPH % 1.6 % (8-40); MCH 27.6 pg (25.7-33.7); MCHC 32.8 g/dl (32.0-36.0); MEAN CELL VOLUME 84.2 fl (80-96); MEAN PLT VOLUME 10.1 fl (7.5-11.1); MONO % 7.3 % (3.8-10.2); NEUT % 90.7 % (42.8-82.8); RBC 3.16 M/mm3 (3.60-5.2); RDW 23.7 % (11.6-15.6); WHITE BLOOD COUNT 6.9 K/mm3 (4.0-10.0)
[2017-05-27 18:14] LABS: PLATELET COUNT 31 K/MM3 (134-434)
[2017-05-27 18:45] LABS: INR 1.21 (0.82-1.09); PROTHROMBIN TIME (PATIENT) 13.7 SEC (9.98-11.88)
[2017-05-27 18:48] LABS: ACTIVATED PTT 35.5 SECONDS (26.9-34.4)
[2017-05-27] MEDS: NOREPINEPHRINE BITARTRATE 8,000 MCG in DEXTROSE 5%-WATER - 492 ML IV SCH (19:12)
[2017-05-27] MEDS ORDERED: POTASSIUM CHLORIDE ORAL LIQUID 20 MEQ/15 ML NGT ONE (20:04)
[2017-05-27 20:38] LABS: ADD RBC MORPHOLOGY YES
[2017-05-27 20:39] LABS: ANISOCYTOSIS 1+; OVALOCYTE 1+; PLATELET ESTIMATE DECREASED; TARGET CELLS 2+
[2017-05-27] MEDS: CHLORHEXIDINE GLUCONATE 4% CLEANSER FOR DECOLONIZATION TP SCH (21:19)
[2017-05-27] MEDS: MOMETASONE FUROATE 220 MCG/IH INHALER IH SCH (21:19)
[2017-05-28] MEDS: HYDROCORTISONE SOD SUCCINATE 100 MG/2 ML VIAL IVPB SCH ×3 (02:05→17:26)
[2017-05-28] MEDS: ALBUTEROL SO4 2.5/IPRATROPIUM 0.5 INH SOL 3 ML VIAL.NEB. NEB SCH ×6 (02:30→21:48)
[2017-05-28] MEDS ORDERED: NOREPINEPHRINE BITARTRATE 4 MG/4 ML ML IV ONE ×2 (04:53→17:19)
[2017-05-28 06:36] LABS: HEMOGLOBIN 8.3 GM/dL (10.7-15.3); LYMPH % 1.3 % (8-40); MCHC 33.2 g/dl (32.0-36.0); MEAN CELL VOLUME 84.1 fl (80-96); MEAN PLT VOLUME 10.4 fl (7.5-11.1); MONO % 4.9 % (3.8-10.2); NEUT % 93.7 % (42.8-82.8); PLATELET COUNT 42 K/MM3 (134-434); RBC 2.98 M/mm3 (3.60-5.2); RDW 23.5 % (11.6-15.6); WHITE BLOOD COUNT 7.6 K/mm3 (4.0-10.0)
[2017-05-28 06:37] LABS: BASO % 0.1 % (0-2.0)
[2017-05-28] MEDS: INSULIN SLIDING SCALE (NOVOLOG) 1 VIAL SQ SCH ×4 (06:54→22:00)
[2017-05-28] MEDS: GABAPENTIN 100 MG CAPSULE (FP) NGT SCH ×3 (06:55→21:53)
[2017-05-28 06:56] LABS: ALBUMIN 1.6 g/dl (3.4-5.0); ANION GAP 14 (8-16); BILIRUBIN,TOTAL 1.7 mg/dL (0.2-1.0); BLOOD UREA NITROGEN 38 mg/dL (7-18); CALCIUM 7.4 mg/dL (8.5-10.1); CHLORIDE 96 mmol/L (98-107); CO2 24 mmol/L (21-32); CREATININE 3.2 mg/dL (0.55-1.02); GLUCOSE,RANDOM 181 mg/dL (74-106); PHOSPHOROUS 3.6 mg/dL (2.5-4.9); POTASSIUM 3.8 mmol/L (3.5-5.1); SGOT/AST 64 U/L (15-37); SGPT/ALT 26 U/L (12-78); SODIUM 134 mmol/L (136-145); TOT PROT 4.5 g/dl (6.4-8.2)
[2017-05-28 06:57] LABS: ALK PHOS 97 U/L (45-117)
--- NOTE | 2017-05-28 07:02 | PN ---
Progress Note, Physician Chief Complaint: ID Day 5 Meropenem GI bleeding noted per nursing staff Still significant pressor requirement Ventilator - Current Medication List Current Medications: Active Medications Albuterol/Ipratropium (Duoneb -) 1 amp NEB Q4HPO [facility] Last Admin: 05/28/17 06:10 Dose: 1 amp Amino Acids (Prosource No Carb Liquid Pkt) 30 ml PO DAILY [facility] Last Admin: 05/27/17 09:30 Dose: 30 ml Calcitriol (Rocaltrol -) 0.25 mcg PO DAILY [facility] Last Admin: 05/27/17 09:29 Dose: 0.25 mcg Chlorhexidine Gluconate (Hibiclens For Decolonization -) 1 applic TP HS [facility] Last Admin: 05/27/17 21:19 Dose: 1 applic Fentanyl (Sublimaze Injection -) 100 mcg IVPUSH Q30M PRN PRN Reason: AGITATION Stop: 05/28/17 22:44 Last Admin: 05/27/17 23:36 Dose: 100 mcg Gabapentin (Neurontin -) 100 mg NGT TID [facility] Last Admin: 05/28/17 06:55 Dose: 100 mg Hydrocortisone Sodium Succinate (Solu-Cortef -) 100 mg IVPB Q8H-IV [facility] Last Admin: 05/28/17 02:05 Dose: 100 mg Norepinephrine Bitartrate 8, (000 mcg/ Dextrose) 500 mls @ 18.75 mls/hr IV TITR [facility]; 5 MCG/MIN PRN Reason: Protocol Last Admin: 05/27/17 19:12 Dose: Not Given Meropenem 500 mg/ Dextrose 100 mls @ 200 mls/hr IVPB BID [facility] Last Admin: 05/27/17 21:19 Dose: 200 mls/hr Dobutamine HCl/Dextrose (Dobutamine 250 Mg/D5w -) 250,000 mcg in 250 mls @ 24.889 mls/hr IV TITR [facility]; 5 MCG/KG/MIN PRN Reason: Protocol Last Admin: 05/27/17 21:20 Dose: 5 mcg/kg/min, 24.889 mls/hr Propofol (Diprivan -) 1,000,000 mcg in 100 mls @ 2.754 mls/hr IVPB TITR [facility]; 5 MCG/KG/MIN PRN Reason: Protocol Last Titration: 05/27/17 19:25 Dose: 10 mcg/kg/min, 5.508 mls/hr Insulin Aspart (Novolog Vial Sliding Scale -) 1 vial SQ ACHS [facility] PRN Reason: Protocol Last Admin: 05/28/17 06:54 Dose: 4 units Midodrine (Proamatine -) 5 mg PO TID-MID [facility] Last Admin: 05/27/17 19:18 Dose: 5 mg Mometasone Furoate (Asmanex 220mcg -) 1 puff IH HS [facility] Last Admin: 05/27/17 21:19 Dose: Not Given Morphine Sulfate (Morphine Sulfate) 2 mg IVPUSH Q6H PRN PRN Reason: PAIN LEVEL 1-5 Last Admin: 05/26/17 18:36 Dose: 2 mg Multivit/Ca Carb/B Cmplx/FA/Prenat (Nephro-Pancho -) 1 tablet PO DAILY [facility] Last Admin: 05/27/17 09:29 Dose: 1 tablet Pantoprazole Sodium (Protonix Iv) 40 mg IVPUSH BID [facility] Last Admin: 05/27/17 21:20 Dose: 40 mg - Objective Vital Signs: Vital Signs Temperature 96.7 F L 05/28/17 02:00 Pulse Rate 84 05/28/17 02:00 Respiratory Rate 14 05/28/17 06:46 Blood Pressure 95/45 05/28/17 02:00 O2 Sat by Pulse Oximetry (%) 100 05/27/17 21:00 HENT: Yes: Other (ET tube NGT) Cardiovascular: Yes: S1, S2 Respiratory: Yes: WNL, Regular, CTA Bilaterally, Diminished Gastrointestinal: Yes: Distention, Other (Edema abd wall) Extremities: Yes: Other (Gangrene) Labs: CBC, BMP 05/28/17 06:20 INR, PTT INR 1.21 (0.82-1.09) H 05/27/17 17:45 Fibrinogen 133.0 mg/dL (238-498) L 05/27/17 17:45 Problem List - Problems (1) Sepsis Code(s): A41.9 - SEPSIS, UNSPECIFIED ORGANISM (2) Anemia Code(s): D64.9 - ANEMIA, UNSPECIFIED (3) ESRD (end stage renal disease) Code(s): N18.6 - END STAGE RENAL DISEASE (4) GI bleed Code(s): K92.2 - GASTROINTESTINAL HEMORRHAGE, UNSPECIFIED Assessment/Plan Microbiology 05/21/17 20:00 Blood - Peripheral Venous Blood Culture - Final NO GROWTH AFTER 5 DAYS INCUBATION 05/21/17 19:56 Blood - Peripheral Venous Blood Culture - Final NO GROWTH AFTER 5 DAYS INCUBATION 05/23/17 08:20 Blood - Central Line Blood Culture - Preliminary NO GROWTH OBTAINED AFTER 96 HOURS, INCUBATION TO CONTINUE FOR 1 DAYS. 05/23/17 08:20 Blood - Central Line Blood Culture - Preliminary NO GROWTH OBTAINED AFTER 96 HOURS, INCUBATION TO CONTINUE FOR 1 DAYS. Laboratory Tests 05/27/17 05/28/17 05:50 06:20 WBC 7.6 Hgb 8.3 L Hct 25.0 L Plt Count 42 L D BUN 30 H Creatinine 3.0 H Creat Clearance w eGFR 16.03 Assessment Sepsis syndrome ? Intrabdominal source ischemia History of cardiac arrest Empiric therapy Coagulopathy getting platelets Plan Continue antibiotic support as ordered Prognosis poor Hermelinda TELLES
[2017-05-28 07:11] LABS: INR 1.24 (0.82-1.09)
[2017-05-28 07:13] LABS: ACTIVATED PTT 34.9 SECONDS (26.9-34.4)
[2017-05-28] MEDS ORDERED: PT OWN MED DRAWER 7, Y5N ONE (09:25)
[2017-05-28] MEDS: MEROPENEM 500 MG in DEXTROSE 5%-WATER - 100 ML IVPB SCH ×2 (09:28→21:53)
[2017-05-28] MEDS: PANTOPRAZOLE SODIUM 40 MG VIAL IVPUSH SCH ×2 (09:30→21:53)
[2017-05-28] MEDS: CALCITRIOL 0.25 MCG CAPSULE (FP) PO SCH (09:31)
[2017-05-28] MEDS: VITAMIN B COMP W-C 1 EA TABLET PO SCH (09:31)
[2017-05-28] MEDS: AMINO ACIDS/PROTEIN HYDROLYS 30 ML LIQUID.PKT PO SCH (09:32)
[2017-05-28] MEDS: DOBUTAMINE 250 MG/D5W - 250,000 MCG/250 ML INFUS.BAG IV SCH (09:32)
[2017-05-28] MEDS: MIDODRINE HCL 5 MG TABLET PO SCH ×3 (09:32→17:26)
--- NOTE | 2017-05-28 11:22 | PN ---
Progress Note, Physician Chief Complaint: Intubated Volume overload Nursing report of bloody BM History of Present Illness: 56F w/ DM, HTN, s/p CABG 03/2017 after NSTEMI at [facility] with Dr. Martines MVR and TVR , ESRD on Hemodialysis (M/W/F) and PVD, who presented from [facility] for rectal bleeding. She was severely anemic and hypotensive. SP multiple PRBC and on Nor- epi. Takes aspirin, but no other AC. coumadin was stopped on 05/11. The patient denies chest pain, shortness of breath. - Current Medication List Current Medications: Active Medications Albuterol/Ipratropium (Duoneb -) 1 amp NEB Q4HPO [facility] Last Admin: 05/28/17 10:30 Dose: 1 amp Amino Acids (Prosource No Carb Liquid Pkt) 30 ml PO DAILY [facility] Last Admin: 05/28/17 09:32 Dose: 30 ml Calcitriol (Rocaltrol -) 0.25 mcg PO DAILY [facility] Last Admin: 05/28/17 09:31 Dose: 0.25 mcg Chlorhexidine Gluconate (Hibiclens For Decolonization -) 1 applic TP HS [facility] Last Admin: 05/27/17 21:19 Dose: 1 applic Fentanyl (Sublimaze Injection -) 100 mcg IVPUSH Q30M PRN PRN Reason: AGITATION Stop: 05/28/17 22:44 Last Admin: 05/27/17 23:36 Dose: 100 mcg Gabapentin (Neurontin -) 100 mg NGT TID [facility] Last Admin: 05/28/17 06:55 Dose: 100 mg Hydrocortisone Sodium Succinate (Solu-Cortef -) 100 mg IVPB Q8H-IV [facility] Last Admin: 05/28/17 09:30 Dose: 100 mg Norepinephrine Bitartrate 8, (000 mcg/ Dextrose) 500 mls @ 18.75 mls/hr IV TITR [facility]; 5 MCG/MIN PRN Reason: Protocol Last Admin: 05/27/17 19:12 Dose: Not Given Meropenem 500 mg/ Dextrose 100 mls @ 200 mls/hr IVPB BID [facility] Last Admin: 05/28/17 09:28 Dose: 200 mls/hr Dobutamine HCl/Dextrose (Dobutamine 250 Mg/D5w -) 250,000 mcg in 250 mls @ 24.889 mls/hr IV TITR [facility]; 5 MCG/KG/MIN PRN Reason: Protocol Last Admin: 05/28/17 09:32 Dose: 5 mcg/kg/min, 24.889 mls/hr Propofol (Diprivan -) 1,000,000 mcg in 100 mls @ 2.754 mls/hr IVPB TITR [facility]; 5 MCG/KG/MIN PRN Reason: Protocol Last Titration: 05/27/17 19:25 Dose: 10 mcg/kg/min, 5.508 mls/hr Insulin Aspart (Novolog Vial Sliding Scale -) 1 vial SQ ACHS [facility] PRN Reason: Protocol Last Admin: 05/28/17 06:54 Dose: 4 units Midodrine (Proamatine -) 5 mg PO TID-MID [facility] Last Admin: 05/28/17 09:32 Dose: 5 mg Mometasone Furoate (Asmanex 220mcg -) 1 puff IH HS [facility] Last Admin: 05/27/17 21:19 Dose: Not Given Morphine Sulfate (Morphine Sulfate) 2 mg IVPUSH Q6H PRN PRN Reason: PAIN LEVEL 1-5 Last Admin: 05/26/17 18:36 Dose: 2 mg Multivit/Ca Carb/B Cmplx/FA/Prenat (Nephro-Pancho -) 1 tablet PO DAILY [facility] Last Admin: 05/28/17 09:31 Dose: 1 tablet Pantoprazole Sodium (Protonix Iv) 40 mg IVPUSH BID [facility] Last Admin: 05/28/17 09:30 Dose: 40 mg - Objective Vital Signs: Vital Signs Temperature 97.6 F 05/28/17 10:00 Pulse Rate 92 H 05/28/17 10:00 Respiratory Rate 14 05/28/17 10:54 Blood Pressure 120/57 05/28/17 10:00 O2 Sat by Pulse Oximetry (%) 100 05/27/17 22:00 Constitutional: Yes: Other (intubated) Neck: Yes: Supple Cardiovascular: Yes: Pulse Irregular, JVD, S1, S2 Respiratory: Yes: Mechanically Ventilated Gastrointestinal: Yes: Soft Edema: LLE: 2+, RLE: 2+ Labs: CBC, BMP 05/28/17 06:20 05/28/17 06:20 INR, PTT INR 1.24 (0.82-1.09) H 05/28/17 06:20 Fibrinogen 122.0 mg/dL (238-498) L 05/28/17 06:20 Assessment/Plan 56F w/ DM, HTN, s/p CABG 03/2017 after NSTEMI at [facility] with Dr. Martines MVR and TVR , ESRD on Hemodialysis (M/W/F) and PVD, who presented from [facility] for rectal bleeding. She was severely anemic and hypotensive. SP multiple PRBC and on Nor- epi. Takes aspirin, but no other AC. coumadin was stopped on 05/11. The patient denies chest pain, shortness of breath. 1) Systolic CHF On dobutamine for cardiac support and levophed for pressure support Volume overloaded. HD ultrafiltration for volume removal. Increase levophed if needed No AC as admitted with severe anemia and also with thrombocytopenia and active bloody BM -Vent management as per ICU team. Plan is for decrease of sedation to asses mental status as per ICU team Abx as per ID
[2017-05-28] MEDS ORDERED: AMINO ACIDS 4.25%/D5W 1,000 ML IV SCH (12:00)
--- NOTE | 2017-05-28 12:06 | PN ---
Progress Note, Physician History of Present Illness: Pt seen and examined at bedside. She remains in the ICU. She remains intubated and on pressors. - Current Medication List Current Medications: Active Medications Albuterol/Ipratropium (Duoneb -) 1 amp NEB Q4HPO [facility] Last Admin: 05/28/17 10:30 Dose: 1 amp Amino Acids (Prosource No Carb Liquid Pkt) 30 ml PO DAILY [facility] Last Admin: 05/28/17 09:32 Dose: 30 ml Calcitriol (Rocaltrol -) 0.25 mcg PO DAILY [facility] Last Admin: 05/28/17 09:31 Dose: 0.25 mcg Chlorhexidine Gluconate (Hibiclens For Decolonization -) 1 applic TP HS [facility] Last Admin: 05/27/17 21:19 Dose: 1 applic Fentanyl (Sublimaze Injection -) 100 mcg IVPUSH Q30M PRN PRN Reason: AGITATION Stop: 05/28/17 22:44 Last Admin: 05/27/17 23:36 Dose: 100 mcg Gabapentin (Neurontin -) 100 mg NGT TID [facility] Last Admin: 05/28/17 06:55 Dose: 100 mg Hydrocortisone Sodium Succinate (Solu-Cortef -) 100 mg IVPB Q8H-IV [facility] Last Admin: 05/28/17 09:30 Dose: 100 mg Norepinephrine Bitartrate 8, (000 mcg/ Dextrose) 500 mls @ 18.75 mls/hr IV TITR [facility]; 5 MCG/MIN PRN Reason: Protocol Last Admin: 05/27/17 19:12 Dose: Not Given Meropenem 500 mg/ Dextrose 100 mls @ 200 mls/hr IVPB BID [facility] Last Admin: 05/28/17 09:28 Dose: 200 mls/hr Dobutamine HCl/Dextrose (Dobutamine 250 Mg/D5w -) 250,000 mcg in 250 mls @ 24.889 mls/hr IV TITR [facility]; 5 MCG/KG/MIN PRN Reason: Protocol Last Admin: 05/28/17 09:32 Dose: 5 mcg/kg/min, 24.889 mls/hr Propofol (Diprivan -) 1,000,000 mcg in 100 mls @ 2.754 mls/hr IVPB TITR [facility]; 5 MCG/KG/MIN PRN Reason: Protocol Last Titration: 05/27/17 19:25 Dose: 10 mcg/kg/min, 5.508 mls/hr Amino Acids (Clinimix -) 1,000 mls @ 35 mls/hr IV Q12H [facility] Insulin Aspart (Novolog Vial Sliding Scale -) 1 vial SQ ACHS [facility] PRN Reason: Protocol Last Admin: 05/28/17 06:54 Dose: 4 units Midodrine (Proamatine -) 5 mg PO TID-MID [facility] Last Admin: 05/28/17 09:32 Dose: 5 mg Mometasone Furoate (Asmanex 220mcg -) 1 puff IH HS [facility] Last Admin: 05/27/17 21:19 Dose: Not Given Morphine Sulfate (Morphine Sulfate) 2 mg IVPUSH Q6H PRN PRN Reason: PAIN LEVEL 1-5 Last Admin: 05/26/17 18:36 Dose: 2 mg Multivit/Ca Carb/B Cmplx/FA/Prenat (Nephro-Pancho -) 1 tablet PO DAILY [facility] Last Admin: 05/28/17 09:31 Dose: 1 tablet Pantoprazole Sodium (Protonix Iv) 40 mg IVPUSH BID [facility] Last Admin: 05/28/17 09:30 Dose: 40 mg - Objective Vital Signs: Vital Signs Temperature 97.6 F 05/28/17 10:00 Pulse Rate 92 H 05/28/17 10:00 Respiratory Rate 14 05/28/17 10:54 Blood Pressure 120/57 05/28/17 10:00 O2 Sat by Pulse Oximetry (%) 98 05/28/17 09:00 Constitutional: Yes: Calm Eyes: Yes: Conjunctiva Clear Cardiovascular: Yes: S1, S2 Respiratory: Yes: Mechanically Ventilated Gastrointestinal: Yes: Soft Genitourinary: Yes: Incontinence Musculoskeletal: Yes: Muscle Weakness Edema: Yes Edema: LUE: 2+, RUE: 2+, LLE: 1+, RLE: 1+ Integumentary: Yes: Other (gangrene) Wound/Incision: Yes: Open to air Neurological: Yes: Lethargy Labs: CBC, BMP 05/28/17 06:20 05/28/17 06:20 INR, PTT INR 1.24 (0.82-1.09) H 05/28/17 06:20 Fibrinogen 122.0 mg/dL (238-498) L 05/28/17 06:20 - ....Imaging Chest X-ray: Report Reviewed Problem List - Problems (1) ESRD (end stage renal disease) Code(s): N18.6 - END STAGE RENAL DISEASE (2) CAD (coronary artery disease) Code(s): I25.10 - ATHSCL HEART DISEASE OF [place] CORONARY ARTERY W/O ANG PCTRS (3) Hx of CABG Code(s): Z95.1 - PRESENCE OF AORTOCORONARY BYPASS GRAFT (4) Anemia Code(s): D64.9 - ANEMIA, UNSPECIFIED (5) GI bleed Code(s): K92.2 - GASTROINTESTINAL HEMORRHAGE, UNSPECIFIED Assessment/Plan Current Medications Generic Name Dose Route Start Last Admin Trade Name Freq PRN Reason Stop Dose Admin Albuterol/Ipratropium 1 amp 05/21/17 18:00 05/28/17 10:30 Duoneb - NEB 1 amp Q4HPO [facility] Administration Amino Acids 30 ml 05/26/17 10:00 05/28/17 09:32 Prosource No Carb Liquid Pkt PO 30 ml DAILY [facility] Administration Calcitriol 0.25 mcg 05/23/17 10:45 05/28/17 09:31 Rocaltrol - PO 0.25 mcg DAILY [facility] Administration Chlorhexidine Gluconate 1 applic 05/21/17 22:00 05/27/17 21:19 Hibiclens For Decolonization - TP 1 applic HS [facility] Administration Fentanyl 100 mcg 05/27/17 22:44 05/27/17 23:36 Sublimaze Injection - IVPUSH 05/28/17 22:44 100 mcg Q30M PRN Administration AGITATION Gabapentin 100 mg 05/26/17 22:00 05/28/17 06:55 Neurontin - NGT 100 mg TID [facility] Administration Hydrocortisone Sodium Succinate 100 mg 05/23/17 18:00 05/28/17 09:30 Solu-Cortef - IVPB 100 mg Q8H-IV [facility] Administration Norepinephrine Bitartrate 8, 500 mls @ 18.75 mls/hr 05/21/17 16:45 05/27/17 19:12 000 mcg/ Dextrose IV Not Given TITR [facility] Protocol 5 MCG/MIN Meropenem 500 mg/ Dextrose 100 mls @ 200 mls/hr 05/23/17 08:00 05/28/17 09:28 IVPB 200 mls/hr BID [facility] Administration Dobutamine HCl/Dextrose 250,000 mcg in 250 mls @ 24.889 mls/hr 05/23/17 16:45 05/28/17 09:32 Dobutamine 250 Mg/D5w - IV 5 mcg/kg/min TITR [facility] 24.889 mls/hr Protocol Administration 5 MCG/KG/MIN Propofol 1,000,000 mcg in 100 mls @ 2.754 mls/hr 05/27/17 11:15 05/27/17 19: 25 Diprivan - IVPB 10 mcg/kg/min TITR [facility] 5.508 mls/hr Protocol Titration 5 MCG/KG/MIN Amino Acids 1,000 mls @ 35 mls/hr 05/28/17 12:00 Clinimix - IV Q12H [facility] Insulin Aspart 1 vial 05/22/17 22:00 05/28/17 06:54 Novolog Vial Sliding Scale - SQ 4 units ACHS [facility] Administration Protocol Midodrine 5 mg 05/21/17 23:15 05/28/17 09:32 Proamatine - PO 5 mg TID-MID [facility] Administration Mometasone Furoate 1 puff 05/21/17 22:00 05/27/17 21:19 Asmanex 220mcg - IH Not Given HS [facility] Morphine Sulfate 2 mg 05/26/17 15:27 05/26/17 18:36 Morphine Sulfate IVPUSH 2 mg Q6H PRN Administration PAIN LEVEL 1-5 Multivit/Ca Carb/B Cmplx/FA/Prenat 1 tablet 05/22/17 10:00 05/28/17 09:31 Nephro-Pancho - PO 1 tablet DAILY [facility] Administration Pantoprazole Sodium 40 mg 05/25/17 10:00 05/28/17 09:30 Protonix Iv IVPUSH 40 mg BID [facility] Administration Impression 1. ESRD 2. GI bleed likely from hemorrhoids 3. hemorrhoids 4. anemia 5. CAD 6. s/p CABG 7. DM 8. hypotension 9. lactic acidosis Plan - will arrange for HD today - will UF volume, discussed with ICU - cont pressors - discussed with ICU team - monitor platelets - monitor BP - cont to monitor coags - will use 3 k bath - will follow Dr Plummer
--- NOTE | 2017-05-28 12:08 | PN ---
Teaching Attending Note Name of Resident: Den Dsouza ATTENDING PHYSICIAN STATEMENT I saw and evaluated the patient. I reviewed the resident's note and discussed the case with the resident. I agree with the resident's findings and plan as documented. SUBJECTIVE: Pt seen and examined in the ICU. Remains intubated, sedated. Vented on volume assist control. CVP 14-15. Bloody bowel movement this AM, transfused platelets. OBJECTIVE: Last Vital Signs Temp Pulse Resp BP Pulse Ox 97.6 F 92 H 14 120/57 98 05/28/17 10:00 05/28/17 10:00 05/28/17 10:54 05/28/17 10:00 05/28/17 09:00 Intake & Output 05/25/17 05/26/17 05/27/17 05/28/17 23:59 23:59 23:59 23:59 Intake Total 1903.4 1860.7 2452.2 1203.8 Output Total 0 0 Balance 1903.4 1860.7 2452.2 1203.8 Weight 88.405 kg 90.038 kg 91.807 kg 93.395 kg Gen: intubated, sedated Heart: RRR Lung: scattered rhonchi Abd: soft, nontender Ext: + edema CBC, BMP 05/28/17 06:20 05/28/17 06:20 Active Medications Albumin Human (Albumin Human 25%) 12.5 gm IVPB Q30M [facility] Albuterol/Ipratropium (Duoneb -) 1 amp NEB Q4HPO [facility] Last Admin: 05/28/17 10:30 Dose: 1 amp Amino Acids (Prosource No Carb Liquid Pkt) 30 ml PO DAILY [facility] Last Admin: 05/28/17 09:32 Dose: 30 ml Calcitriol (Rocaltrol -) 0.25 mcg PO DAILY [facility] Last Admin: 05/28/17 09:31 Dose: 0.25 mcg Chlorhexidine Gluconate (Hibiclens For Decolonization -) 1 applic TP HS [facility] Last Admin: 05/27/17 21:19 Dose: 1 applic Fentanyl (Sublimaze Injection -) 100 mcg IVPUSH Q30M PRN PRN Reason: AGITATION Stop: 05/28/17 22:44 Last Admin: 05/27/17 23:36 Dose: 100 mcg Gabapentin (Neurontin -) 100 mg NGT TID [facility] Last Admin: 05/28/17 06:55 Dose: 100 mg Hydrocortisone Sodium Succinate (Solu-Cortef -) 100 mg IVPB Q8H-IV [facility] Last Admin: 05/28/17 09:30 Dose: 100 mg Norepinephrine Bitartrate 8, (000 mcg/ Dextrose) 500 mls @ 18.75 mls/hr IV TITR [facility]; 5 MCG/MIN PRN Reason: Protocol Last Admin: 05/27/17 19:12 Dose: Not Given Meropenem 500 mg/ Dextrose 100 mls @ 200 mls/hr IVPB BID [facility] Last Admin: 05/28/17 09:28 Dose: 200 mls/hr Dobutamine HCl/Dextrose (Dobutamine 250 Mg/D5w -) 250,000 mcg in 250 mls @ 24.889 mls/hr IV TITR [facility]; 5 MCG/KG/MIN PRN Reason: Protocol Last Admin: 05/28/17 09:32 Dose: 5 mcg/kg/min, 24.889 mls/hr Propofol (Diprivan -) 1,000,000 mcg in 100 mls @ 2.754 mls/hr IVPB TITR [facility]; 5 MCG/KG/MIN PRN Reason: Protocol Last Titration: 05/27/17 19:25 Dose: 10 mcg/kg/min, 5.508 mls/hr Amino Acids (Clinimix -) 1,000 mls @ 35 mls/hr IV Q12H [facility] Sodium Chloride (Normal Saline -) 250 mls @ 3,000 mls/hr IV PRN PRN PRN Reason: Hypotension during Dialysis Stop: 05/29/17 12:06 Insulin Aspart (Novolog Vial Sliding Scale -) 1 vial SQ ACHS [facility] PRN Reason: Protocol Last Admin: 05/28/17 06:54 Dose: 4 units Midodrine (Proamatine -) 5 mg PO TID-MID [facility] Last Admin: 05/28/17 09:32 Dose: 5 mg Mometasone Furoate (Asmanex 220mcg -) 1 puff IH HS [facility] Last Admin: 05/27/17 21:19 Dose: Not Given Morphine Sulfate (Morphine Sulfate) 2 mg IVPUSH Q6H PRN PRN Reason: PAIN LEVEL 1-5 Last Admin: 05/26/17 18:36 Dose: 2 mg Multivit/Ca Carb/B Cmplx/FA/Prenat (Nephro-Pancho -) 1 tablet PO DAILY [facility] Last Admin: 05/28/17 09:31 Dose: 1 tablet Pantoprazole Sodium (Protonix Iv) 40 mg IVPUSH BID [facility] Last Admin: 05/28/17 09:30 Dose: 40 mg ASSESSMENT AND PLAN: Acute Hypoxic Respiratory Failure Shock - ?Septic vs Cardiogenic GI Bleed +Troponins likely [place]and Ischemia LV Systolic Dysfunction Thrombocytopenia Coagulopathy Gangrene CAD s/p CABG ESRD on HD HTN DM - continue empiric antibiotics - titrate pressors, inotropes to maintain MAP >65 - HD per renal with ultrafiltration - continue stress dose steroids - monitor platelets, coags, fibrinogen level - transfuse as needed - lighten sedation to assess mental status - spontaneous breathing trials as tolerated when mental status improved - enteral feeds - DVT/GI prophylaxis - continue ICU monitoring critical care time spent in reviewing chart, evaluating patient and formulating plan 35 min
--- NOTE | 2017-05-28 13:28 | PN ---
Physical Exam: SUBJECTIVE: Patient seen and examined This am, pt had another episode of blood clots in BM. A unit of platelets given and NG tube feeds held. Also, pressures have dropped since changing from versed to propofol, so levo uptitrated. This am, pt still sedated on vent and unresponsive. OBJECTIVE: Vital Signs Period Temp Pulse Resp BP Sys/Ceron Pulse Ox Last 24 Hr 96.7 F-99 F 82-93 14-22 90-121/45-59 98-100 GENERAL: middle aged female, lying in bed, on vent, sedated, with anasarca HEENT: ET tube in place, NG tube in place LUNGS: mechanical breath sounds HEART: tachycardic ABDOMEN: obese, soft, NT EXTREMITIES: 2+ pitting edema in all 4 extremities. gangrene in b/l feet. wrists and ankles cold to palpation. no distal pulses able to be palpated NEUROLOGICAL: unresponsive Laboratory Results - last 24 hr 05/23/17 05/27/17 05/27/17 09:00 14:35 17:45 WBC 6.9 RBC 3.16 L Hgb 8.7 L Hct 26.6 L MCV 84.2 MCH 27.6 MCHC 32.8 RDW 23.7 H Plt Count 31 L* MPV 10.1 D Neutrophils % 90.7 H Lymphocytes % 1.6 L D Monocytes % 7.3 Eosinophils % 0.0 D Basophils % 0.4 Hypochromia 2+ Platelet Estimate Decreased Platelet Comment No clumping noted Polychromasia 1+ Poikilocytosis 1+ Anisocytosis 1+ Microcytosis 1+ Target Cells 2+ Ovalocytes 1+ PT with INR INR PTT (Actin FS) Fibrinogen Sodium Potassium Chloride Carbon Dioxide Anion Gap BUN Creatinine Creat Clearance w eGFR POC Glucometer [phone] Random Glucose Calcium Phosphorus Magnesium Total Bilirubin AST ALT Alkaline Phosphatase Total Protein Albumin Hep A IgM Ab Confirm Negative Hepatitis A Ab Total Positive H Hep Bs Antigen Negative Hep Bs Antibody Reactive Hep B Core Total Ab Negative 05/27/17 05/27/17 05/27/17 17:45 17:45 19:09 WBC RBC Hgb Hct MCV MCH MCHC RDW Plt Count MPV Neutrophils % Lymphocytes % Monocytes % Eosinophils % Basophils % Hypochromia Platelet Estimate Platelet Comment Polychromasia Poikilocytosis Anisocytosis Microcytosis Target Cells Ovalocytes PT with INR 13.70 H INR 1.21 H PTT (Actin FS) 35.5 H Fibrinogen 133.0 L Sodium Potassium 3.3 L Chloride Carbon Dioxide Anion Gap BUN Creatinine Creat Clearance w eGFR POC Glucometer [phone] Random Glucose Calcium Phosphorus Magnesium Total Bilirubin AST ALT Alkaline Phosphatase Total Protein Albumin Hep A IgM Ab Confirm Hepatitis A Ab Total Hep Bs Antigen Hep Bs Antibody Hep B Core Total Ab 05/27/17 05/28/17 05/28/17 21:29 06:08 06:20 WBC 7.6 RBC 2.98 L Hgb 8.3 L Hct 25.0 L MCV 84.1 MCH 28.0 MCHC 33.2 RDW 23.5 H Plt Count 42 L D MPV 10.4 Neutrophils % 93.7 H Lymphocytes % 1.3 L Monocytes % 4.9 Eosinophils % 0.0 Basophils % 0.1 Hypochromia Platelet Estimate Platelet Comment Polychromasia Poikilocytosis Anisocytosis Microcytosis Target Cells Ovalocytes PT with INR INR PTT (Actin FS) Fibrinogen Sodium Potassium Chloride Carbon Dioxide Anion Gap BUN Creatinine Creat Clearance w eGFR POC Glucometer [phone] Random Glucose Calcium Phosphorus Magnesium Total Bilirubin AST ALT Alkaline Phosphatase Total Protein Albumin Hep A IgM Ab Confirm Hepatitis A Ab Total Hep Bs Antigen Hep Bs Antibody Hep B Core Total Ab 05/28/17 05/28/17 06:20 06:20 WBC RBC Hgb Hct MCV MCH MCHC RDW Plt Count MPV Neutrophils % Lymphocytes % Monocytes % Eosinophils % Basophils % Hypochromia Platelet Estimate Platelet Comment Polychromasia Poikilocytosis Anisocytosis Microcytosis Target Cells Ovalocytes PT with INR 14.00 H INR 1.24 H PTT (Actin FS) 34.9 H Fibrinogen 122.0 L Sodium 134 L Potassium 3.8 Chloride 96 L Carbon Dioxide 24 Anion Gap 14 BUN 38 H Creatinine 3.2 H Creat Clearance w eGFR 14.88 POC Glucometer Random Glucose 181 H Calcium 7.4 L Phosphorus 3.6 Magnesium 2.0 Total Bilirubin 1.7 H D AST 64 H ALT 26 Alkaline Phosphatase 97 Total Protein 4.5 L Albumin 1.6 L Hep A IgM Ab Confirm Hepatitis A Ab Total Hep Bs Antigen Hep Bs Antibody Hep B Core Total Ab Active Medications Generic Name Dose Route Start Last Admin Trade Name Freq PRN Reason Stop Dose Admin Albumin Human 12.5 gm 05/28/17 12:15 Albumin Human 25% IVPB Q30M RUEL Albuterol/Ipratropium 1 amp 05/21/17 18:00 05/28/17 10:30 Duoneb - NEB 1 amp Q4HPO RUEL Administration Amino Acids 30 ml 05/26/17 10:00 05/28/17 09:32 Prosource No Carb Liquid Pkt PO 30 ml DAILY RUEL Administration Calcitriol 0.25 mcg 05/23/17 10:45 05/28/17 09:31 Rocaltrol - PO 0.25 mcg DAILY RUEL Administration Chlorhexidine Gluconate 1 applic 05/21/17 22:00 05/27/17 21:19 Hibiclens For Decolonization - TP 1 applic HS RUEL Administration Fentanyl 100 mcg 05/27/17 22:44 05/27/17 23:36 Sublimaze Injection - IVPUSH 05/28/17 22:44 100 mcg Q30M PRN Administration AGITATION Gabapentin 100 mg 05/26/17 22:00 05/28/17 06:55 Neurontin - NGT 100 mg TID RUEL Administration Hydrocortisone Sodium Succinate 100 mg 05/23/17 18:00 05/28/17 09:30 Solu-Cortef - IVPB 100 mg Q8H-IV RUEL Administration Norepinephrine Bitartrate 8, 500 mls @ 18.75 mls/hr 05/21/17 16:45 05/27/17 19:12 000 mcg/ Dextrose IV Not Given TITR RUEL Protocol 5 MCG/MIN Meropenem 500 mg/ Dextrose 100 mls @ 200 mls/hr 05/23/17 08:00 05/28/17 09:28 IVPB 200 mls/hr BID RUEL Administration Dobutamine HCl/Dextrose 250,000 mcg in 250 mls @ 24.889 mls/hr 05/23/17 16:45 05/28/17 09:32 Dobutamine 250 Mg/D5w - IV 5 mcg/kg/min TITR RUEL 24.889 mls/hr Protocol Administration 5 MCG/KG/MIN Propofol 1,000,000 mcg in 100 mls @ 2.754 mls/hr 05/27/17 11:15 05/27/17 19: 25 Diprivan - IVPB 10 mcg/kg/min TITR RUEL 5.508 mls/hr Protocol Titration 5 MCG/KG/MIN Sodium Chloride 250 mls @ 3,000 mls/hr 05/28/17 12:06 Normal Saline - IV 05/29/17 12:06 PRN PRN Hypotension during Dialysis AA 2.75 %/CALCIUM/LYTES/D7.5W 1,000 mls @ 42 mls/hr 05/28/17 14:00 Clinimix 2.75%-7.5% Solution IVPB DAILY RUEL Insulin Aspart 1 vial 05/22/17 22:00 05/28/17 06:54 Novolog Vial Sliding Scale - SQ 4 units ACHS RUEL Administration Protocol Midodrine 5 mg 05/21/17 23:15 05/28/17 09:32 Proamatine - PO 5 mg TID-MID RUEL Administration Mometasone Furoate 1 puff 05/21/17 22:00 05/27/17 21:19 Asmanex 220mcg - IH Not Given HS RUEL Morphine Sulfate 2 mg 05/26/17 15:27 05/26/17 18:36 Morphine Sulfate IVPUSH 2 mg Q6H PRN Administration PAIN LEVEL 1-5 Multivit/Ca Carb/B Cmplx/FA/Prenat 1 tablet 05/22/17 10:00 05/28/17 09:31 Nephro-Pancho - PO 1 tablet DAILY RUEL Administration Pantoprazole Sodium 40 mg 05/25/17 10:00 05/28/17 09:30 Protonix Iv IVPUSH 40 mg BID RUEL Administration ASSESSMENT/PLAN: 56F w/ hx of DM, HTN, [place] s/p CABG (03/2017), ESRD on Hemodialysis (M/W/F), and hemorrhoids who presented with BRBPR, admitted to ICU with shock, now s/p intubation on vent, on pressors and abx. #GI -likely lower GI bleed source from hemorrhoids, can't r/o other lower sources (anal fissure, rectal or colonic mass, diverticulosis, AVM) or upper ( PUD, gastritis/esophagitis, etc). Etiology possibly 2/2 coagulopathy -Hgb of 8.3 today, downtrending -IV protonix -GI on board, Dr. Iniguez -home ASA held -new episode of GI bleeding this am, s/p platelets. continue to monitor #CV -troponinemia, likely due to clearance failure as pt is ESRD. Trops peaked at 2.02 -shock: continue levo (currently @ 12) and dobutamine (currently @ 5). wean as tolerated. continue hydrocortisone 100mg q8h -CVP: 18--> 16 -cardiology on board, Dr. Stapleton. recs appreciated -b/l gangrenous feet. vascular on board, Dr. Smith #Resp -intubated on vent. wean as tolerated -continue propofol #hematology -hematology on board, Dr. Salomon, recs appreciated -elevated PT, INR, and PTT in conjunction with anemia and thrombocytopenia and pt's comorbidities and clinical presentation support diagnosis of coaguloapathy. -s/p FFP, vit. K, DDAVP, platelets -continue to trend labs -per hematology: administer platelets/FFP/cryo if platelets < 30, actively bleeding, or fibrinogen < 100 #nephro -renal on board, Dr. Plummer. recs appreciated. Pt receiving HD today. #neuro -sedated #ID -dry gangrene on b/l feet -afebrile, minimal leukocytosis. Cxs negative -ID on board, Dr. Collins. continue meropenem -Bcx negative to date #FEN/ppx -pressors -electrolytes wnl -tube feeds held due to GI bleed -protonix -no DVT ppx as elevated INR and GI bleed #Dispo -full code Case discussed with attending, Dr. Vargas. -Den Dsouza MD PGY1 ICU Team Visit type - Emergency Visit Emergency Visit: Yes ED Registration Date: 05/21/17 Care time: The patient presented to the Emergency Department on the above date and was hospitalized for further evaluation of their emergent condition. - New Patient This patient is new to me today: No - Critical Care Critical Care patient: Yes Total Critical Care Time (in minutes): 39 Critical Care Statement: The care of this patient involved high complexity decision making to prevent further life threatening deterioration of the patient 's condition and/or to evaluate & treat vital organ system(s) failure or risk of failure.
--- NOTE | 2017-05-28 14:33 | PN ---
<Sander Infante - Last Filed: 05/28/17 14:28> Physical Exam: SERVICE: Hematology and Oncology SUBJECTIVE: Patient is intubated, sedated, and on pressors and mechanical ventilation. Per nurse, patient had a large blood clot again per rectum, levo uptitrated since switching from versed to propofol, no other acute events overnight. OBJECTIVE: Last Vital Signs Temp Pulse Resp BP Pulse Ox 97.6 F 90 14 116/57 98 05/28/17 10:00 05/28/17 12:00 05/28/17 12:00 05/28/17 12:00 05/28/17 09:00 GENERAL: intubated, sedated and mechanically vented HEAD: AT, NC LUNGS: obscured lung sounds HEART: distant heart sounds ABDOMEN: Soft, nontender, nondistended EXTREMITIES: dressing over b/l foot CBCD WBC 7.6 K/mm3 (4.0-10.0) 05/28/17 06:20 RBC 2.98 M/mm3 (3.60-5.2) L 05/28/17 06:20 Hgb 8.3 GM/dL (10.7-15.3) L 05/28/17 06:20 Hct 25.0 % (32.4-45.2) L 05/28/17 06:20 MCV 84.1 fl (80-96) 05/28/17 06:20 MCHC 33.2 g/dl (32.0-36.0) 05/28/17 06:20 RDW 23.5 % (11.6-15.6) H 05/28/17 06:20 Plt Count 42 K/MM3 (134-434) L D 05/28/17 06:20 MPV 10.4 fl (7.5-11.1) 05/28/17 06:20 CMP Sodium 134 mmol/L (136-145) L 05/28/17 06:20 Potassium 3.8 mmol/L (3.5-5.1) 05/28/17 06:20 Chloride 96 mmol/L (98-107) L 05/28/17 06:20 Carbon Dioxide 24 mmol/L (21-32) 05/28/17 06:20 Anion Gap 14 (8-16) 05/28/17 06:20 BUN 38 mg/dL (7-18) H 05/28/17 06:20 Creatinine 3.2 mg/dL (0.55-1.02) H 05/28/17 06:20 Creat Clearance w eGFR 14.88 (>60) 05/28/17 06:20 Calcium 7.4 mg/dL (8.5-10.1) L 05/28/17 06:20 Total Bilirubin 1.7 mg/dL (0.2-1.0) H D 05/28/17 06:20 AST 64 U/L (15-37) H 05/28/17 06:20 ALT 26 U/L (12-78) 05/28/17 06:20 Alkaline Phosphatase 97 U/L (45-117) 05/28/17 06:20 Total Protein 4.5 g/dl (6.4-8.2) L 05/28/17 06:20 Albumin 1.6 g/dl (3.4-5.0) L 05/28/17 06:20 ASSESSMENT/PLAN: 56 yo F h/o ESRD on HD, CAD s/p CABG, DM, HTN, chronic LE gangrene admitted to the ICU for septic shock. # Coagulopathy and elevated PT/PTT # Gangrene # LGIB - plt count plummeted today, given 1 unit of mono donor plt, transfuse monodonor platelets/cryo/FFP if actively beeding or platelets < 20-30,000 or fibrinogen < 100 Visit type - Emergency Visit Emergency Visit: No - New Patient This patient is new to me today: No - Critical Care Critical Care patient: Yes - Discharge Referral Referred to [facility] No <Jessica Salomon - Last Filed: 05/28/17 22:46> Physical Exam: SUBJECTIVE: Patient seen and examined OBJECTIVE: Vital Signs Period Temp Pulse Resp BP Sys/Ceron Pulse Ox Last 24 Hr 96.7 F-98 F 83-102 14-18 90-121/45-58 98-100 GENERAL: The patient is awake, alert, and fully oriented, in no acute distress. HEAD: Normal with no signs of trauma. EYES: PERRL, extraocular movements intact, sclera anicteric, conjunctiva clear. No ptosis. ENT: Ears normal, nares patent, oropharynx clear without exudates, moist mucous membranes. NECK: Trachea midline, full range of motion, supple. LUNGS: Breath sounds equal, clear to auscultation bilaterally, no wheezes, no crackles, no accessory muscle use. HEART: Regular rate and rhythm, S1, S2 without murmur, rub or gallop. ABDOMEN: Soft, nontender, nondistended, normoactive bowel sounds, no guarding, no rebound, no hepatosplenomegaly, no masses. EXTREMITIES: 2+ pulses, warm, well-perfused, no edema. NEUROLOGICAL: Cranial nerves II through XII grossly intact. Normal speech, gait not observed. PSYCH: Normal mood, normal affect. SKIN: Warm, dry, normal turgor, no rashes or lesions noted Laboratory Results - last 24 hr 05/28/17 05/28/17 05/28/17 06:08 06:20 06:20 WBC 7.6 RBC 2.98 L Hgb 8.3 L Hct 25.0 L MCV 84.1 MCH 28.0 MCHC 33.2 RDW 23.5 H Plt Count 42 L D MPV 10.4 Neutrophils % 93.7 H Lymphocytes % 1.3 L Monocytes % 4.9 Eosinophils % 0.0 Basophils % 0.1 PT with INR 14.00 H INR 1.24 H PTT (Actin FS) 34.9 H Fibrinogen 122.0 L Sodium Potassium Chloride Carbon Dioxide Anion Gap BUN Creatinine Creat Clearance w eGFR POC Glucometer [phone] Random Glucose Calcium Phosphorus Magnesium Total Bilirubin AST ALT Alkaline Phosphatase Total Protein Albumin 05/28/17 05/28/17 05/28/17 06:20 16:54 17:00 WBC 7.8 RBC 3.13 L Hgb 8.8 L Hct 26.4 L MCV 84.1 MCH 27.9 MCHC 33.2 RDW 23.9 H Plt Count 76 L D MPV 11.4 H Neutrophils % 92.8 H Lymphocytes % 1.5 L Monocytes % 5.6 Eosinophils % 0.0 Basophils % 0.1 PT with INR INR PTT (Actin FS) Fibrinogen Sodium 134 L Potassium 3.8 Chloride 96 L Carbon Dioxide 24 Anion Gap 14 BUN 38 H Creatinine 3.2 H Creat Clearance w eGFR 14.88 POC Glucometer [phone] Random Glucose 181 H Calcium 7.4 L Phosphorus 3.6 Magnesium 2.0 Total Bilirubin 1.7 H D AST 64 H ALT 26 Alkaline Phosphatase 97 Total Protein 4.5 L Albumin 1.6 L 05/28/17 17:00 WBC RBC Hgb Hct MCV MCH MCHC RDW Plt Count MPV Neutrophils % Lymphocytes % Monocytes % Eosinophils % Basophils % PT with INR 13.00 H INR 1.15 H PTT (Actin FS) 31.4 Fibrinogen 149.0 L D Sodium Potassium Chloride Carbon Dioxide Anion Gap BUN Creatinine Creat Clearance w eGFR POC Glucometer Random Glucose Calcium Phosphorus Magnesium Total Bilirubin AST ALT Alkaline Phosphatase Total Protein Albumin Active Medications Generic Name Dose Route Start Last Admin Trade Name Trisha PRN Reason Stop Dose Admin Albuterol/Ipratropium 1 amp 05/21/17 18:00 05/28/17 21:48 Duoneb - NEB 1 amp Q4HPO RUEL Administration Amino Acids 30 ml 05/26/17 10:00 05/28/17 09:32 Prosource No Carb Liquid Pkt PO 30 ml DAILY RUEL Administration Calcitriol 0.25 mcg 05/23/17 10:45 05/28/17 09:31 Rocaltrol - PO 0.25 mcg DAILY RUEL Administration Chlorhexidine Gluconate 1 applic 05/21/17 22:00 05/28/17 21:44 Hibiclens For Decolonization - TP 1 applic HS RUEL Administration Gabapentin 100 mg 05/26/17 22:00 05/28/17 21:53 Neurontin - NGT 100 mg TID RUEL Administration Hydrocortisone Sodium Succinate 100 mg 05/23/17 18:00 05/28/17 17:26 Solu-Cortef - IVPB 100 mg Q8H-IV RUEL Administration Norepinephrine Bitartrate 8, 500 mls @ 18.75 mls/hr 05/21/17 16:45 05/28/17 17:25 000 mcg/ Dextrose IV 12 mcg/min TITR RUEL 45 mls/hr Protocol Administration 5 MCG/MIN Meropenem 500 mg/ Dextrose 100 mls @ 200 mls/hr 05/23/17 08:00 05/28/17 21:53 IVPB 200 mls/hr BID RUEL Administration Dobutamine HCl/Dextrose 250,000 mcg in 250 mls @ 24.889 mls/hr 05/23/17 16:45 05/28/17 09:32 Dobutamine 250 Mg/D5w - IV 5 mcg/kg/min TITR RUEL 24.889 mls/hr Protocol Administration 5 MCG/KG/MIN Propofol 1,000,000 mcg in 100 mls @ 2.754 mls/hr 05/27/17 11:15 05/28/17 17: 24 Diprivan - IVPB 10 mcg/kg/min TITR RUEL 5.508 mls/hr Protocol Administration 5 MCG/KG/MIN Sodium Chloride 250 mls @ 3,000 mls/hr 05/28/17 15:50 Normal Saline - IV 05/29/17 15:49 PRN PRN Hypotension during Dialysis AA 2.75 %/CALCIUM/LYTES/D7.5W 1,000 mls @ 42 mls/hr 05/28/17 14:00 05/28/17 16:35 Clinimix 2.75%-7.5% Solution IVPB 42 mls/hr DAILY RUEL Administration Insulin Aspart 1 vial 05/22/17 22:00 05/28/17 22:00 Novolog Vial Sliding Scale - SQ 4 units ACHS RUEL Administration Protocol Midodrine 5 mg 05/21/17 23:15 05/28/17 17:26 Proamatine - PO 5 mg TID-MID RUEL Administration Mometasone Furoate 1 puff 05/21/17 22:00 05/28/17 21:43 Asmanex 220mcg - IH Not Given HS RUEL Morphine Sulfate 2 mg 05/26/17 15:27 05/26/17 18:36 Morphine Sulfate IVPUSH 2 mg Q6H PRN Administration PAIN LEVEL 1-5 Multivit/Ca Carb/B Cmplx/FA/Prenat 1 tablet 05/22/17 10:00 05/28/17 09:31 Nephro-Pancho - PO 1 tablet DAILY RUEL Administration Pantoprazole Sodium 40 mg 05/25/17 10:00 05/28/17 21:53 Protonix Iv IVPUSH 40 mg BID RUEL Administration ASSESSMENT/PLAN: Problem List - Problems (1) Coagulopathy Code(s): D68.9 - COAGULATION DEFECT, UNSPECIFIED (2) Gangrene Code(s): I96 - GANGRENE, NOT ELSEWHERE CLASSIFIED (3) GI bleed Code(s): K92.2 - GASTROINTESTINAL HEMORRHAGE, UNSPECIFIED (4) Hx of CABG Code(s): Z95.1 - PRESENCE OF AORTOCORONARY BYPASS GRAFT
--- NOTE | 2017-05-28 14:47 | PN ---
Progress Note, Physician Chief Complaint: intubated opens her eyes does not follow commands on propofol back on Levophed , still on Dobutamine Had a large bloody bm this early AM and was placed back on Levophed drip - Current Medication List Current Medications: Active Medications Albumin Human (Albumin Human 25%) 12.5 gm IVPB Q30M RUEL Albuterol/Ipratropium (Duoneb -) 1 amp NEB Q4HPO RUEL Last Admin: 05/28/17 10:30 Dose: 1 amp Amino Acids (Prosource No Carb Liquid Pkt) 30 ml PO DAILY RUEL Last Admin: 05/28/17 09:32 Dose: 30 ml Calcitriol (Rocaltrol -) 0.25 mcg PO DAILY RUEL Last Admin: 05/28/17 09:31 Dose: 0.25 mcg Chlorhexidine Gluconate (Hibiclens For Decolonization -) 1 applic TP HS RUEL Last Admin: 05/27/17 21:19 Dose: 1 applic Fentanyl (Sublimaze Injection -) 100 mcg IVPUSH Q30M PRN PRN Reason: AGITATION Stop: 05/28/17 22:44 Last Admin: 05/27/17 23:36 Dose: 100 mcg Gabapentin (Neurontin -) 100 mg NGT TID RUEL Last Admin: 05/28/17 06:55 Dose: 100 mg Hydrocortisone Sodium Succinate (Solu-Cortef -) 100 mg IVPB Q8H-IV RUEL Last Admin: 05/28/17 09:30 Dose: 100 mg Norepinephrine Bitartrate 8, (000 mcg/ Dextrose) 500 mls @ 18.75 mls/hr IV TITR RUEL; 5 MCG/MIN PRN Reason: Protocol Last Admin: 05/27/17 19:12 Dose: Not Given Meropenem 500 mg/ Dextrose 100 mls @ 200 mls/hr IVPB BID RUEL Last Admin: 05/28/17 09:28 Dose: 200 mls/hr Dobutamine HCl/Dextrose (Dobutamine 250 Mg/D5w -) 250,000 mcg in 250 mls @ 24.889 mls/hr IV TITR RUEL; 5 MCG/KG/MIN PRN Reason: Protocol Last Admin: 05/28/17 09:32 Dose: 5 mcg/kg/min, 24.889 mls/hr Propofol (Diprivan -) 1,000,000 mcg in 100 mls @ 2.754 mls/hr IVPB TITR RUEL; 5 MCG/KG/MIN PRN Reason: Protocol Last Titration: 05/27/17 19:25 Dose: 10 mcg/kg/min, 5.508 mls/hr Sodium Chloride (Normal Saline -) 250 mls @ 3,000 mls/hr IV PRN PRN PRN Reason: Hypotension during Dialysis Stop: 05/29/17 12:06 AA 2.75 %/CALCIUM/LYTES/D7.5W (Clinimix 2.75%-7.5% Solution) 1,000 mls @ 42 mls /hr IVPB DAILY [facility] Insulin Aspart (Novolog Vial Sliding Scale -) 1 vial SQ ACHS RUEL PRN Reason: Protocol Last Admin: 05/28/17 06:54 Dose: 4 units Midodrine (Proamatine -) 5 mg PO TID-MID [facility] Last Admin: 05/28/17 09:32 Dose: 5 mg Mometasone Furoate (Asmanex 220mcg -) 1 puff IH HS [facility] Last Admin: 05/27/17 21:19 Dose: Not Given Morphine Sulfate (Morphine Sulfate) 2 mg IVPUSH Q6H PRN PRN Reason: PAIN LEVEL 1-5 Last Admin: 05/26/17 18:36 Dose: 2 mg Multivit/Ca Carb/B Cmplx/FA/Prenat (Nephro-Pancho -) 1 tablet PO DAILY [facility] Last Admin: 05/28/17 09:31 Dose: 1 tablet Pantoprazole Sodium (Protonix Iv) 40 mg IVPUSH BID [facility] Last Admin: 05/28/17 09:30 Dose: 40 mg - Objective Vital Signs: Vital Signs Temperature 97.6 F 05/28/17 10:00 Pulse Rate 90 05/28/17 12:00 Respiratory Rate 14 05/28/17 12:00 Blood Pressure 116/57 05/28/17 12:00 O2 Sat by Pulse Oximetry (%) 98 05/28/17 09:00 Constitutional: Yes: Other (anasarca) Cardiovascular: Yes: Regular Rate and Rhythm Respiratory: Yes: Diminished, Mechanically Ventilated Gastrointestinal: Yes: Normal Bowel Sounds, Soft, Tenderness (diffuse-- pt grimacing) Extremities: Yes: Other (gangrene b/l feet) Edema: Yes Labs: CBC, BMP 05/28/17 06:20 05/28/17 06:20 INR, PTT INR 1.24 (0.82-1.09) H 05/28/17 06:20 Fibrinogen 122.0 mg/dL (238-498) L 05/28/17 06:20 Problem List - Problems (1) Anemia Code(s): D64.9 - ANEMIA, UNSPECIFIED (2) CAD (coronary artery disease) Code(s): I25.10 - ATHSCL HEART DISEASE OF [place] CORONARY ARTERY W/O ANG PCTRS (3) ESRD (end stage renal disease) Code(s): N18.6 - END STAGE RENAL DISEASE (4) GI bleed Code(s): K92.2 - GASTROINTESTINAL HEMORRHAGE, UNSPECIFIED (5) Gangrene Code(s): I96 - GANGRENE, NOT ELSEWHERE CLASSIFIED (6) H/O heart valve replacement with bioprosthetic valve Code(s): Z95.3 - PRESENCE OF XENOGENIC HEART VALVE (7) Hx of CABG Code(s): Z95.1 - PRESENCE OF AORTOCORONARY BYPASS GRAFT (8) Lower GI bleed Code(s): K92.2 - GASTROINTESTINAL HEMORRHAGE, UNSPECIFIED (9) Sepsis Code(s): A41.9 - SEPSIS, UNSPECIFIED ORGANISM Assessment/Plan A/P Hypovolemic shock GI bleeding ESRD on HD CAD , s/p CABG, MV and TV replacement AMS Gangrene of rt foot and left ring finger hypothermia-- on Solucortef thrombocytopenia -- on Levophed GTT -- on Dobutamine -- feedings on hold -- CBC stable -- continue with iv antibiotics -- cultures negative -- prognosis poor
[2017-05-28] MEDS ORDERED: SODIUM CHLORIDE 250 ML IV PRN (15:50)
[2017-05-28] MEDS: ALBUMIN HUMAN 25% 12.5 GM/50 ML VIAL IVPB SCH ×4 (16:00→17:30)
[2017-05-28] MEDS: AA 2.75 %/CALCIUM/LYTES/D7.5W 1,000 ML IVPB SCH (16:35)
[2017-05-28] MEDS: PROPOFOL 1,000,000 MCG/100 ML VIAL IVPB SCH (17:24)
[2017-05-28] MEDS: NOREPINEPHRINE BITARTRATE 8,000 MCG in DEXTROSE 5%-WATER - 492 ML IV SCH (17:25)
[2017-05-28 18:42] LABS: BASO % 0.1 % (0-2.0); HEMATOCRIT 26.4 % (32.4-45.2); HEMOGLOBIN 8.8 GM/dL (10.7-15.3); LYMPH % 1.5 % (8-40); MCH 27.9 pg (25.7-33.7); MCHC 33.2 g/dl (32.0-36.0); MEAN CELL VOLUME 84.1 fl (80-96); MEAN PLT VOLUME 11.4 fl (7.5-11.1); MONO % 5.6 % (3.8-10.2); NEUT % 92.8 % (42.8-82.8); PLATELET COUNT 76 K/MM3 (134-434); RBC 3.13 M/mm3 (3.60-5.2); RDW 23.9 % (11.6-15.6); WHITE BLOOD COUNT 7.8 K/mm3 (4.0-10.0)
[2017-05-28 19:43] LABS: INR 1.15 (0.82-1.09)
[2017-05-28 19:46] LABS: ACTIVATED PTT 31.4 SECONDS (26.9-34.4)
[2017-05-28] MEDS: MOMETASONE FUROATE 220 MCG/IH INHALER IH SCH (21:43)
[2017-05-28] MEDS: CHLORHEXIDINE GLUCONATE 4% CLEANSER FOR DECOLONIZATION TP SCH (21:44)
[2017-05-29] MEDS ORDERED: NOREPINEPHRINE BITARTRATE 4 MG/4 ML ML IV ONE (01:52)
[2017-05-29] MEDS: HYDROCORTISONE SOD SUCCINATE 100 MG/2 ML VIAL IVPB SCH ×3 (01:54→17:01)
[2017-05-29] MEDS: ALBUTEROL SO4 2.5/IPRATROPIUM 0.5 INH SOL 3 ML VIAL.NEB. NEB SCH ×6 (02:00→22:35)
[2017-05-29] MEDS: INSULIN SLIDING SCALE (NOVOLOG) 1 VIAL SQ SCH ×4 (06:17→22:53)
[2017-05-29] MEDS: GABAPENTIN 100 MG CAPSULE (FP) NGT SCH ×3 (06:24→21:59)
[2017-05-29 06:38] LABS: BASO % 0.1 % (0-2.0); HEMATOCRIT 22.5 % (32.4-45.2); HEMOGLOBIN 7.6 GM/dL (10.7-15.3); MCH 28.3 pg (25.7-33.7); MCHC 33.8 g/dl (32.0-36.0); MEAN CELL VOLUME 83.8 fl (80-96); MEAN PLT VOLUME 9.6 fl (7.5-11.1); MONO % 6.2 % (3.8-10.2); NEUT % 91.7 % (42.8-82.8); PLATELET COUNT 61 K/MM3 (134-434); RBC 2.69 M/mm3 (3.60-5.2); RDW 23.7 % (11.6-15.6); WHITE BLOOD COUNT 7.2 K/mm3 (4.0-10.0)
[2017-05-29 07:04] LABS: INR 1.18 (0.82-1.09); PROTHROMBIN TIME (PATIENT) 13.3 SEC (9.98-11.88)
[2017-05-29 07:06] LABS: ACTIVATED PTT 31.5 SECONDS (26.9-34.4)
[2017-05-29 07:09] LABS: ALBUMIN 1.7 g/dl (3.4-5.0); ANION GAP 7 (8-16); BLOOD UREA NITROGEN 29 mg/dL (7-18); CALCIUM 7.4 mg/dL (8.5-10.1); CHLORIDE 97 mmol/L (98-107); CO2 28 mmol/L (21-32); CREATININE 2.6 mg/dL (0.55-1.02); GLUCOSE,RANDOM 124 mg/dL (74-106); MAGNESIUM 1.6 mg/dL (1.8-2.4); PHOSPHOROUS 3.3 mg/dL (2.5-4.9); POTASSIUM 3.7 mmol/L (3.5-5.1); SGOT/AST 30 U/L (15-37); SGPT/ALT 20 U/L (12-78); SODIUM 132 mmol/L (136-145)
[2017-05-29 07:11] LABS: ALK PHOS 98 U/L (45-117); BILIRUBIN,TOTAL 1.4 mg/dL (0.2-1.0); TOT PROT 4.9 g/dl (6.4-8.2)
--- NOTE | 2017-05-29 07:19 | PN ---
Progress Note, Physician Chief Complaint: ID Meropenem day 6 No change in clinical status pressor dependent Intubated and Sedation - Current Medication List Current Medications: Active Medications Albuterol/Ipratropium (Duoneb -) 1 amp NEB Q4HPO [facility] Last Admin: 05/29/17 02:00 Dose: 1 amp Amino Acids (Prosource No Carb Liquid Pkt) 30 ml PO DAILY [facility] Last Admin: 05/28/17 09:32 Dose: 30 ml Calcitriol (Rocaltrol -) 0.25 mcg PO DAILY [facility] Last Admin: 05/28/17 09:31 Dose: 0.25 mcg Chlorhexidine Gluconate (Hibiclens For Decolonization -) 1 applic TP HS [facility] Last Admin: 05/28/17 21:44 Dose: 1 applic Gabapentin (Neurontin -) 100 mg NGT TID [facility] Last Admin: 05/29/17 06:24 Dose: 100 mg Hydrocortisone Sodium Succinate (Solu-Cortef -) 100 mg IVPB Q8H-IV [facility] Last Admin: 05/29/17 01:54 Dose: 100 mg Norepinephrine Bitartrate 8, (000 mcg/ Dextrose) 500 mls @ 18.75 mls/hr IV TITR [facility]; 5 MCG/MIN PRN Reason: Protocol Last Titration: 05/29/17 04:20 Dose: 6 mcg/min, 22.5 mls/hr Meropenem 500 mg/ Dextrose 100 mls @ 200 mls/hr IVPB BID [facility] Last Admin: 05/28/17 21:53 Dose: 200 mls/hr Dobutamine HCl/Dextrose (Dobutamine 250 Mg/D5w -) 250,000 mcg in 250 mls @ 24.889 mls/hr IV TITR [facility]; 5 MCG/KG/MIN PRN Reason: Protocol Last Titration: 05/29/17 05:00 Dose: 5 mcg/kg/min, 24.889 mls/hr Propofol (Diprivan -) 1,000,000 mcg in 100 mls @ 2.754 mls/hr IVPB TITR [facility]; 5 MCG/KG/MIN PRN Reason: Protocol Last Titration: 05/29/17 03:00 Dose: 10 mcg/kg/min, 5.508 mls/hr Sodium Chloride (Normal Saline -) 250 mls @ 3,000 mls/hr IV PRN PRN PRN Reason: Hypotension during Dialysis Stop: 05/29/17 15:49 AA 2.75 %/CALCIUM/LYTES/D7.5W (Clinimix 2.75%-7.5% Solution) 1,000 mls @ 42 mls /hr IVPB DAILY [facility] Last Admin: 05/28/17 16:35 Dose: 42 mls/hr Insulin Aspart (Novolog Vial Sliding Scale -) 1 vial SQ ACHS [facility] PRN Reason: Protocol Last Admin: 05/29/17 06:17 Dose: 2 units Midodrine (Proamatine -) 5 mg PO TID-MID [facility] Last Admin: 05/28/17 17:26 Dose: 5 mg Mometasone Furoate (Asmanex 220mcg -) 1 puff IH HS [facility] Last Admin: 05/28/17 21:43 Dose: Not Given Morphine Sulfate (Morphine Sulfate) 2 mg IVPUSH Q6H PRN PRN Reason: PAIN LEVEL 1-5 Last Admin: 05/26/17 18:36 Dose: 2 mg Multivit/Ca Carb/B Cmplx/FA/Prenat (Nephro-Pancho -) 1 tablet PO DAILY [facility] Last Admin: 05/28/17 09:31 Dose: 1 tablet Pantoprazole Sodium (Protonix Iv) 40 mg IVPUSH BID [facility] Last Admin: 05/28/17 21:53 Dose: 40 mg - Objective Vital Signs: Vital Signs Temperature 98.2 F 05/29/17 06:00 Pulse Rate 91 H 05/29/17 06:00 Respiratory Rate 14 05/29/17 06:00 Blood Pressure 102/47 05/29/17 06:00 O2 Sat by Pulse Oximetry (%) 100 05/28/17 20:42 HENT: Yes: Other (Intubated) Cardiovascular: Yes: S1, S2 Respiratory: Yes: WNL, Regular, CTA Bilaterally Gastrointestinal: Yes: Soft Extremities: Yes: Other (gangrene LE) Labs: CBC, BMP 05/29/17 06:15 05/29/17 06:15 INR, PTT INR 1.18 (0.82-1.09) H 05/29/17 06:15 Fibrinogen 149.0 mg/dL (238-498) L D 05/28/17 17:00 Problem List - Problems (1) Sepsis Code(s): A41.9 - SEPSIS, UNSPECIFIED ORGANISM (2) Anemia Code(s): D64.9 - ANEMIA, UNSPECIFIED (3) ESRD (end stage renal disease) Code(s): N18.6 - END STAGE RENAL DISEASE (4) GI bleed Code(s): K92.2 - GASTROINTESTINAL HEMORRHAGE, UNSPECIFIED Assessment/Plan Laboratory Tests 05/29/17 05/29/17 06:15 06:15 WBC 7.2 Hgb 7.6 L D Hct 22.5 L Plt Count 61 L BUN 29 H Creatinine 2.6 H Creat Clearance w eGFR 18.91 Assessment Respiratory failure Sepsis syndrome ESRD LE gangrene Heart valve replacement Pancytopenia Plan Reculture add Vanco dose and continue Meropenem for today Hermelinda TELLES
[2017-05-29] MEDS ORDERED: VANCOMYCIN 1,500 MG in DEXTROSE 5%-WATER - 500 ML IVPB ONE (09:00)
[2017-05-29] MEDS ORDERED: MAGNESIUM 1GM/D5W 100ML - 100 ML IVPB IVPB ONE (09:00)
[2017-05-29] MEDS ORDERED: AMINO ACIDS 4.25%/D5W 1,000 ML IV SCH (10:00)
[2017-05-29] MEDS: VITAMIN B COMP W-C 1 EA TABLET PO SCH (10:55)
[2017-05-29] MEDS: PANTOPRAZOLE SODIUM 40 MG VIAL IVPUSH SCH ×2 (10:56→21:58)
[2017-05-29] MEDS: AMINO ACIDS/PROTEIN HYDROLYS 30 ML LIQUID.PKT PO SCH (10:56)
[2017-05-29] MEDS: CALCITRIOL 0.25 MCG CAPSULE (FP) PO SCH ×2 (10:56→11:26)
[2017-05-29] MEDS ORDERED: PT OWN MED DRAWER 7, Y5N ONE ×2 (11:06→21:56)
[2017-05-29] MEDS: MEROPENEM 500 MG in DEXTROSE 5%-WATER - 100 ML IVPB SCH ×2 (11:08→21:58)
[2017-05-29] MEDS: MIDODRINE HCL 5 MG TABLET PO SCH ×3 (11:13→17:01)
[2017-05-29] MEDS: AA 2.75 %/CALCIUM/LYTES/D7.5W 1,000 ML IVPB SCH (11:42)
--- NOTE | 2017-05-29 12:25 | PN ---
Progress Note, Physician History of Present Illness: Pt seen and examined at bedside. She remains in the ICU. She remains intubated. - Current Medication List Current Medications: Active Medications Albuterol/Ipratropium (Duoneb -) 1 amp NEB Q4HPO [facility] Last Admin: 05/29/17 09:30 Dose: 1 amp Amino Acids (Prosource No Carb Liquid Pkt) 30 ml PO DAILY [facility] Last Admin: 05/29/17 10:56 Dose: 30 ml Calcitriol (Rocaltrol -) 0.25 mcg PO DAILY [facility] Last Admin: 05/29/17 11:26 Dose: Not Given Chlorhexidine Gluconate (Hibiclens For Decolonization -) 1 applic TP HS [facility] Last Admin: 05/28/17 21:44 Dose: 1 applic Gabapentin (Neurontin -) 100 mg NGT TID [facility] Last Admin: 05/29/17 06:24 Dose: 100 mg Hydrocortisone Sodium Succinate (Solu-Cortef -) 100 mg IVPB Q8H-IV [facility] Last Admin: 05/29/17 10:57 Dose: 100 mg Norepinephrine Bitartrate 8, (000 mcg/ Dextrose) 500 mls @ 18.75 mls/hr IV TITR [facility]; 5 MCG/MIN PRN Reason: Protocol Last Titration: 05/29/17 11:16 Dose: 5 mcg/min, 18.75 mls/hr Meropenem 500 mg/ Dextrose 100 mls @ 200 mls/hr IVPB BID [facility] Last Admin: 05/29/17 11:08 Dose: 200 mls/hr Dobutamine HCl/Dextrose (Dobutamine 250 Mg/D5w -) 250,000 mcg in 250 mls @ 24.889 mls/hr IV TITR [facility]; 5 MCG/KG/MIN PRN Reason: Protocol Last Titration: 05/29/17 05:00 Dose: 5 mcg/kg/min, 24.889 mls/hr Propofol (Diprivan -) 1,000,000 mcg in 100 mls @ 2.754 mls/hr IVPB TITR [facility]; 5 MCG/KG/MIN PRN Reason: Protocol Last Titration: 05/29/17 10:35 Dose: 0 mcg/kg/min, 0 mls/hr Sodium Chloride (Normal Saline -) 250 mls @ 3,000 mls/hr IV PRN PRN PRN Reason: Hypotension during Dialysis Stop: 05/29/17 15:49 Insulin Aspart (Novolog Vial Sliding Scale -) 1 vial SQ ACHS [facility] PRN Reason: Protocol Last Admin: 05/29/17 06:17 Dose: 2 units Midodrine (Proamatine -) 5 mg PO TID-MID [facility] Last Admin: 05/29/17 11:13 Dose: 5 mg Mometasone Furoate (Asmanex 220mcg -) 1 puff IH HS [facility] Last Admin: 05/28/17 21:43 Dose: Not Given Morphine Sulfate (Morphine Sulfate) 2 mg IVPUSH Q6H PRN PRN Reason: PAIN LEVEL 1-5 Last Admin: 05/26/17 18:36 Dose: 2 mg Multivit/Ca Carb/B Cmplx/FA/Prenat (Nephro-Pancho -) 1 tablet PO DAILY [facility] Last Admin: 05/29/17 10:55 Dose: 1 tablet Pantoprazole Sodium (Protonix Iv) 40 mg IVPUSH BID [facility] Last Admin: 05/29/17 10:56 Dose: 40 mg - Objective Vital Signs: Vital Signs Temperature 98.2 F 05/29/17 10:00 Pulse Rate 93 H 05/29/17 11:16 Respiratory Rate 14 05/29/17 11:14 Blood Pressure 110/58 05/29/17 11:16 O2 Sat by Pulse Oximetry (%) 100 05/29/17 08:05 Constitutional: Yes: Calm Eyes: Yes: Conjunctiva Clear HENT: Yes: Atraumatic Cardiovascular: Yes: S1, S2 Respiratory: Yes: Mechanically Ventilated Gastrointestinal: Yes: Abdomen, Obese Genitourinary: Yes: Incontinence Musculoskeletal: Yes: Muscle Weakness Edema: Yes Edema: LUE: 2+, RUE: 2+, LLE: 2+, RLE: 2+ Integumentary: Yes: Other (gangrene) Wound/Incision: Yes: Dressing Dry and Intact, Other (gangrene) Neurological: Yes: Lethargy Labs: CBC, BMP 05/29/17 06:15 05/29/17 06:15 INR, PTT INR 1.18 (0.82-1.09) H 05/29/17 06:15 Fibrinogen 137.0 mg/dL (238-498) L 05/29/17 06:15 Problem List - Problems (1) ESRD (end stage renal disease) Code(s): N18.6 - END STAGE RENAL DISEASE (2) CAD (coronary artery disease) Code(s): I25.10 - ATHSCL HEART DISEASE OF [place] CORONARY ARTERY W/O ANG PCTRS (3) Hx of CABG Code(s): Z95.1 - PRESENCE OF AORTOCORONARY BYPASS GRAFT (4) Anemia Code(s): D64.9 - ANEMIA, UNSPECIFIED (5) GI bleed Code(s): K92.2 - GASTROINTESTINAL HEMORRHAGE, UNSPECIFIED Assessment/Plan Current Medications Generic Name Dose Route Start Last Admin Trade Name Freq PRN Reason Stop Dose Admin Albuterol/Ipratropium 1 amp 05/21/17 18:00 05/29/17 09:30 Duoneb - NEB 1 amp Q4HPO [facility] Administration Amino Acids 30 ml 05/26/17 10:00 05/29/17 10:56 Prosource No Carb Liquid Pkt PO 30 ml DAILY [facility] Administration Calcitriol 0.25 mcg 05/23/17 10:45 05/29/17 11:26 Rocaltrol - PO Not Given DAILY [facility] Chlorhexidine Gluconate 1 applic 05/21/17 22:00 05/28/17 21:44 Hibiclens For Decolonization - TP 1 applic HS [facility] Administration Gabapentin 100 mg 05/26/17 22:00 05/29/17 06:24 Neurontin - NGT 100 mg TID [facility] Administration Hydrocortisone Sodium Succinate 100 mg 05/23/17 18:00 05/29/17 10:57 Solu-Cortef - IVPB 100 mg Q8H-IV [facility] Administration Norepinephrine Bitartrate 8, 500 mls @ 18.75 mls/hr 05/21/17 16:45 05/29/17 11:16 000 mcg/ Dextrose IV 5 mcg/min TITR [facility] 18.75 mls/hr Protocol Titration 5 MCG/MIN Meropenem 500 mg/ Dextrose 100 mls @ 200 mls/hr 05/23/17 08:00 05/29/17 11:08 IVPB 200 mls/hr BID [facility] Administration Dobutamine HCl/Dextrose 250,000 mcg in 250 mls @ 24.889 mls/hr 05/23/17 16:45 05/29/17 05:00 Dobutamine 250 Mg/D5w - IV 5 mcg/kg/min TITR [facility] 24.889 mls/hr Protocol Titration 5 MCG/KG/MIN Propofol 1,000,000 mcg in 100 mls @ 2.754 mls/hr 05/27/17 11:15 05/29/17 10: 35 Diprivan - IVPB 0 mcg/kg/min TITR [facility] 0 mls/hr Protocol Titration 5 MCG/KG/MIN Sodium Chloride 250 mls @ 3,000 mls/hr 05/28/17 15:50 Normal Saline - IV 05/29/17 15:49 PRN PRN Hypotension during Dialysis Insulin Aspart 1 vial 05/22/17 22:00 05/29/17 06:17 Novolog Vial Sliding Scale - SQ 2 units ACHS [facility] Administration Protocol Midodrine 5 mg 05/21/17 23:15 05/29/17 11:13 Proamatine - PO 5 mg TID-MID [facility] Administration Mometasone Furoate 1 puff 05/21/17 22:00 05/28/17 21:43 Asmanex 220mcg - IH Not Given HS [facility] Morphine Sulfate 2 mg 05/26/17 15:27 05/26/17 18:36 Morphine Sulfate IVPUSH 2 mg Q6H PRN Administration PAIN LEVEL 1-5 Multivit/Ca Carb/B Cmplx/FA/Prenat 1 tablet 05/22/17 10:00 05/29/17 10:55 Nephro-Pancho - PO 1 tablet DAILY [facility] Administration Pantoprazole Sodium 40 mg 05/25/17 10:00 05/29/17 10:56 Protonix Iv IVPUSH 40 mg BID [facility] Administration Impression 1. ESRD 2. GI bleed likely from hemorrhoids 3. hemorrhoids 4. anemia 5. CAD 6. s/p CABG 7. DM 8. hypotension 9. lactic acidosis 10. volume overload 11. resp failure requiring intubation Plan - will arrange for another HD session today for volume removal - discussed with ICU team - can transfuse prbc on HD - monitor BP - cont to monitor coags - will use 3 k bath - will follow Dr Plummer
--- NOTE | 2017-05-29 12:35 | PN ---
Teaching Attending Note Name of Resident: Den Dsouza ATTENDING PHYSICIAN STATEMENT I saw and evaluated the patient. I reviewed the resident's note and discussed the case with the resident. I agree with the resident's findings and plan as documented. SUBJECTIVE: Pt seen and examined in the ICU. Remains intubated, sedated on levophed, dobutamine gtts. Tolerated HD with ultrafiltration 2L yesterday. OBJECTIVE: Last Vital Signs Temp Pulse Resp BP Pulse Ox 98.2 F 93 H 14 110/58 100 05/29/17 10:00 05/29/17 11:16 05/29/17 11:14 05/29/17 11:16 05/29/17 08:05 Intake & Output 05/26/17 05/27/17 05/28/17 05/29/17 23:59 23:59 23:59 23:59 Intake Total 1860.7 2452.2 2225.8 1185.6 Output Total 0 0 Balance 1860.7 2452.2 2225.8 1185.6 Weight 90.038 kg 91.807 kg 93.395 kg 92.079 kg Gen: intubated, sedated, tachypneic Heart: RRR Lung: scattered rhonchi Abd: soft, nontender Ext: + anasarca CBC, BMP 05/29/17 06:15 05/29/17 06:15 Active Medications Albumin Human (Albumin Human 25%) 12.5 gm IVPB Q30M [facility] Albuterol/Ipratropium (Duoneb -) 1 amp NEB Q4HPO [facility] Last Admin: 05/29/17 09:30 Dose: 1 amp Amino Acids (Prosource No Carb Liquid Pkt) 30 ml PO DAILY [facility] Last Admin: 05/29/17 10:56 Dose: 30 ml Calcitriol (Rocaltrol -) 0.25 mcg PO DAILY [facility] Last Admin: 05/29/17 11:26 Dose: Not Given Chlorhexidine Gluconate (Hibiclens For Decolonization -) 1 applic TP HS [facility] Last Admin: 05/28/17 21:44 Dose: 1 applic Gabapentin (Neurontin -) 100 mg NGT TID [facility] Last Admin: 05/29/17 06:24 Dose: 100 mg Hydrocortisone Sodium Succinate (Solu-Cortef -) 100 mg IVPB Q8H-IV [facility] Last Admin: 05/29/17 10:57 Dose: 100 mg Norepinephrine Bitartrate 8, (000 mcg/ Dextrose) 500 mls @ 18.75 mls/hr IV TITR [facility]; 5 MCG/MIN PRN Reason: Protocol Last Titration: 05/29/17 11:16 Dose: 5 mcg/min, 18.75 mls/hr Meropenem 500 mg/ Dextrose 100 mls @ 200 mls/hr IVPB BID [facility] Last Admin: 05/29/17 11:08 Dose: 200 mls/hr Dobutamine HCl/Dextrose (Dobutamine 250 Mg/D5w -) 250,000 mcg in 250 mls @ 24.889 mls/hr IV TITR [facility]; 5 MCG/KG/MIN PRN Reason: Protocol Last Titration: 05/29/17 05:00 Dose: 5 mcg/kg/min, 24.889 mls/hr Propofol (Diprivan -) 1,000,000 mcg in 100 mls @ 2.754 mls/hr IVPB TITR [facility]; 5 MCG/KG/MIN PRN Reason: Protocol Last Titration: 05/29/17 10:35 Dose: 0 mcg/kg/min, 0 mls/hr Sodium Chloride (Normal Saline -) 250 mls @ 3,000 mls/hr IV PRN PRN PRN Reason: Hypotension during Dialysis Stop: 05/29/17 15:49 Sodium Chloride (Normal Saline -) 250 mls @ 3,000 mls/hr IV PRN PRN PRN Reason: Hypotension during Dialysis Stop: 05/30/17 12:26 Insulin Aspart (Novolog Vial Sliding Scale -) 1 vial SQ ACHS [facility] PRN Reason: Protocol Last Admin: 05/29/17 06:17 Dose: 2 units Midodrine (Proamatine -) 5 mg PO TID-MID [facility] Last Admin: 05/29/17 11:13 Dose: 5 mg Mometasone Furoate (Asmanex 220mcg -) 1 puff IH HS [facility] Last Admin: 05/28/17 21:43 Dose: Not Given Morphine Sulfate (Morphine Sulfate) 2 mg IVPUSH Q6H PRN PRN Reason: PAIN LEVEL 1-5 Last Admin: 05/26/17 18:36 Dose: 2 mg Multivit/Ca Carb/B Cmplx/FA/Prenat (Nephro-Pancho -) 1 tablet PO DAILY [facility] Last Admin: 05/29/17 10:55 Dose: 1 tablet Pantoprazole Sodium (Protonix Iv) 40 mg IVPUSH BID [facility] Last Admin: 05/29/17 10:56 Dose: 40 mg ASSESSMENT AND PLAN: Acute Hypoxic Respiratory Failure Shock - ?Septic vs Cardiogenic GI Bleed +Troponins likely [place] Ischemia LV Systolic Dysfunction Volume Overload Thrombocytopenia Coagulopathy Gangrene CAD s/p CABG ESRD on HD HTN DM - continue empiric antibiotics - titrate pressors, inotropes to maintain MAP >65 - HD per renal with ultrafiltration - continue stress dose steroids - monitor platelets, coags, fibrinogen level - transfuse as needed - lighten sedation to assess mental status - spontaneous breathing trials as tolerated when mental status improved - enteral feeds - DVT/GI prophylaxis - continue ICU monitoring critical care time spent in reviewing chart, evaluating patient and formulating plan 35 min
[2017-05-29] MEDS ORDERED: HEMOQUE TEST 1 EACH EACH ONE ×2 (12:38→22:34)
[2017-05-29] MEDS: PROPOFOL 1,000,000 MCG/100 ML VIAL IVPB SCH (12:47)
--- NOTE | 2017-05-29 13:04 | PN ---
Progress Note, Physician Chief Complaint: no distress unable to wean - Current Medication List Current Medications: Active Medications Albumin Human (Albumin Human 25%) 12.5 gm IVPB Q30M [facility] Stop: 05/29/17 14:01 Albuterol/Ipratropium (Duoneb -) 1 amp NEB Q4HPO [facility] Last Admin: 05/29/17 09:30 Dose: 1 amp Amino Acids (Prosource No Carb Liquid Pkt) 30 ml PO DAILY [facility] Last Admin: 05/29/17 10:56 Dose: 30 ml Calcitriol (Rocaltrol -) 0.25 mcg PO DAILY [facility] Last Admin: 05/29/17 11:26 Dose: Not Given Chlorhexidine Gluconate (Hibiclens For Decolonization -) 1 applic TP HS [facility] Last Admin: 05/28/17 21:44 Dose: 1 applic Gabapentin (Neurontin -) 100 mg NGT TID [facility] Last Admin: 05/29/17 06:24 Dose: 100 mg Hydrocortisone Sodium Succinate (Solu-Cortef -) 100 mg IVPB Q8H-IV [facility] Last Admin: 05/29/17 10:57 Dose: 100 mg Norepinephrine Bitartrate 8, (000 mcg/ Dextrose) 500 mls @ 18.75 mls/hr IV TITR [facility]; 5 MCG/MIN PRN Reason: Protocol Last Titration: 05/29/17 11:16 Dose: 5 mcg/min, 18.75 mls/hr Meropenem 500 mg/ Dextrose 100 mls @ 200 mls/hr IVPB BID [facility] Last Admin: 05/29/17 11:08 Dose: 200 mls/hr Dobutamine HCl/Dextrose (Dobutamine 250 Mg/D5w -) 250,000 mcg in 250 mls @ 24.889 mls/hr IV TITR [facility]; 5 MCG/KG/MIN PRN Reason: Protocol Last Titration: 05/29/17 05:00 Dose: 5 mcg/kg/min, 24.889 mls/hr Propofol (Diprivan -) 1,000,000 mcg in 100 mls @ 2.754 mls/hr IVPB TITR [facility]; 5 MCG/KG/MIN PRN Reason: Protocol Last Admin: 05/29/17 12:47 Dose: Not Given Sodium Chloride (Normal Saline -) 250 mls @ 3,000 mls/hr IV PRN PRN PRN Reason: Hypotension during Dialysis Stop: 05/29/17 15:49 Sodium Chloride (Normal Saline -) 250 mls @ 3,000 mls/hr IV PRN PRN PRN Reason: Hypotension during Dialysis Stop: 05/30/17 12:26 Insulin Aspart (Novolog Vial Sliding Scale -) 1 vial SQ ACHS [facility] PRN Reason: Protocol Last Admin: 05/29/17 12:46 Dose: 4 units Midodrine (Proamatine -) 5 mg PO TID-MID [facility] Last Admin: 05/29/17 11:13 Dose: 5 mg Mometasone Furoate (Asmanex 220mcg -) 1 puff IH HS [facility] Last Admin: 05/28/17 21:43 Dose: Not Given Morphine Sulfate (Morphine Sulfate) 2 mg IVPUSH Q6H PRN PRN Reason: PAIN LEVEL 1-5 Last Admin: 05/26/17 18:36 Dose: 2 mg Multivit/Ca Carb/B Cmplx/FA/Prenat (Nephro-Pancho -) 1 tablet PO DAILY [facility] Last Admin: 05/29/17 10:55 Dose: 1 tablet Pantoprazole Sodium (Protonix Iv) 40 mg IVPUSH BID [facility] Last Admin: 05/29/17 10:56 Dose: 40 mg - Objective Vital Signs: Vital Signs Temperature 98.2 F 05/29/17 10:00 Pulse Rate 90 05/29/17 12:00 Respiratory Rate 14 05/29/17 12:00 Blood Pressure 97/46 05/29/17 12:00 O2 Sat by Pulse Oximetry (%) 100 05/29/17 08:05 Cardiovascular: Yes: Regular Rate and Rhythm Gastrointestinal: Yes: Soft, Abdomen, Obese. No: Tenderness Extremities: Yes: Other (gangrene b/l feet) Edema: No Labs: CBC, BMP 05/29/17 06:15 05/29/17 06:15 INR, PTT INR 1.18 (0.82-1.09) H 05/29/17 06:15 Fibrinogen 137.0 mg/dL (238-498) L 05/29/17 06:15 Problem List - Problems (1) Anemia Code(s): D64.9 - ANEMIA, UNSPECIFIED (2) CAD (coronary artery disease) Code(s): I25.10 - ATHSCL HEART DISEASE OF [place] CORONARY ARTERY W/O ANG PCTRS Qualifiers: Coronary Disease-Associated Artery/Lesion type: [place] artery Associated angina: without angina (3) ESRD (end stage renal disease) Code(s): N18.6 - END STAGE RENAL DISEASE (4) GI bleed Code(s): K92.2 - GASTROINTESTINAL HEMORRHAGE, UNSPECIFIED (5) Gangrene Code(s): I96 - GANGRENE, NOT ELSEWHERE CLASSIFIED (6) H/O heart valve replacement with bioprosthetic valve Code(s): Z95.3 - PRESENCE OF XENOGENIC HEART VALVE (7) Hx of CABG Code(s): Z95.1 - PRESENCE OF AORTOCORONARY BYPASS GRAFT (8) Lower GI bleed Code(s): K92.2 - GASTROINTESTINAL HEMORRHAGE, UNSPECIFIED (9) Sepsis Code(s): A41.9 - SEPSIS, UNSPECIFIED ORGANISM Assessment/Plan A/P Hypovolemic shock GI bleeding ESRD on HD CAD , s/p CABG, MV and TV replacement AMS Gangrene of rt foot and left ring finger hypothermia-- on Solucortef thrombocytopenia -- on pressors --if unable to wean - will need trach --labs noted -- prognosis poor -- cultures negative
--- NOTE | 2017-05-29 14:51 | PN ---
Physical Exam: SUBJECTIVE: Patient seen and examined Overnight, no acute events. This am, pt still sedated on vent and in need of pressor support. OBJECTIVE: Vital Signs Period Temp Pulse Resp BP Sys/Ceron Pulse Ox Last 24 Hr 97.2 F-98.2 F 90-102 14-18 88-115/44-58 100-100 GENERAL: middle aged female, lying in bed, on vent, sedated, with anasarca HEENT: ET tube in place, NG tube in place LUNGS: mechanical breath sounds HEART: tachycardic ABDOMEN: obese, soft, NT EXTREMITIES: 2+ pitting edema in all 4 extremities. gangrene in b/l feet. wrists and ankles cold to palpation. no distal pulses able to be palpated NEUROLOGICAL: unresponsive Laboratory Results - last 24 hr 05/28/17 05/28/17 05/28/17 06:00 16:54 17:00 WBC 7.8 RBC 3.13 L Hgb 8.8 L Hct 26.4 L MCV 84.1 MCH 27.9 MCHC 33.2 RDW 23.9 H Plt Count 76 L D MPV 11.4 H Neutrophils % 92.8 H Lymphocytes % 1.5 L Monocytes % 5.6 Eosinophils % 0.0 Basophils % 0.1 PT with INR INR PTT (Actin FS) Fibrinogen Sodium Potassium Chloride Carbon Dioxide Anion Gap BUN Creatinine Creat Clearance w eGFR POC Glucometer [phone] Random Glucose Calcium Phosphorus Magnesium Total Bilirubin AST ALT Alkaline Phosphatase Total Protein Albumin Crossmatch See Detail 05/28/17 05/28/17 05/29/17 17:00 21:49 05:22 WBC RBC Hgb Hct MCV MCH MCHC RDW Plt Count MPV Neutrophils % Lymphocytes % Monocytes % Eosinophils % Basophils % PT with INR 13.00 H INR 1.15 H PTT (Actin FS) 31.4 Fibrinogen 149.0 L D Sodium Potassium Chloride Carbon Dioxide Anion Gap BUN Creatinine Creat Clearance w eGFR POC Glucometer [phone] Random Glucose Calcium Phosphorus Magnesium Total Bilirubin AST ALT Alkaline Phosphatase Total Protein Albumin Crossmatch 05/29/17 05/29/17 05/29/17 06:15 06:15 06:15 WBC 7.2 RBC 2.69 L Hgb 7.6 L D Hct 22.5 L MCV 83.8 MCH 28.3 MCHC 33.8 RDW 23.7 H Plt Count 61 L MPV 9.6 D Neutrophils % 91.7 H Lymphocytes % 2.0 L D Monocytes % 6.2 Eosinophils % 0.0 Basophils % 0.1 PT with INR 13.30 H INR 1.18 H PTT (Actin FS) 31.5 Fibrinogen 137.0 L Sodium 132 L Potassium 3.7 Chloride 97 L Carbon Dioxide 28 Anion Gap 7 L BUN 29 H Creatinine 2.6 H Creat Clearance w eGFR 18.91 POC Glucometer Random Glucose 124 H Calcium 7.4 L Phosphorus 3.3 Magnesium 1.6 L Total Bilirubin 1.4 H AST 30 ALT 20 Alkaline Phosphatase 98 Total Protein 4.9 L Albumin 1.7 L Crossmatch 05/29/17 12:43 WBC RBC Hgb Hct MCV MCH MCHC RDW Plt Count MPV Neutrophils % Lymphocytes % Monocytes % Eosinophils % Basophils % PT with INR INR PTT (Actin FS) Fibrinogen Sodium Potassium Chloride Carbon Dioxide Anion Gap BUN Creatinine Creat Clearance w eGFR POC Glucometer [phone] Random Glucose Calcium Phosphorus Magnesium Total Bilirubin AST ALT Alkaline Phosphatase Total Protein Albumin Crossmatch Active Medications Generic Name Dose Route Start Last Admin Trade Name Freq PRN Reason Stop Dose Admin Albumin Human 12.5 gm 05/29/17 12:30 Albumin Human 25% IVPB 05/29/17 14:01 Q30M RUEL Albuterol/Ipratropium 1 amp 05/21/17 18:00 05/29/17 14:18 Duoneb - NEB 1 amp Q4HPO RUEL Administration Amino Acids 30 ml 05/26/17 10:00 05/29/17 10:56 Prosource No Carb Liquid Pkt PO 30 ml DAILY RUEL Administration Calcitriol 0.25 mcg 05/23/17 10:45 05/29/17 11:26 Rocaltrol - PO Not Given DAILY RUEL Chlorhexidine Gluconate 1 applic 05/21/17 22:00 05/28/17 21:44 Hibiclens For Decolonization - TP 1 applic HS RUEL Administration Gabapentin 100 mg 05/26/17 22:00 05/29/17 14:22 Neurontin - NGT 100 mg TID RUEL Administration Hydrocortisone Sodium Succinate 100 mg 05/23/17 18:00 05/29/17 10:57 Solu-Cortef - IVPB 100 mg Q8H-IV RUEL Administration Norepinephrine Bitartrate 8, 500 mls @ 18.75 mls/hr 05/21/17 16:45 05/29/17 14:38 000 mcg/ Dextrose IV 7 mcg/min TITR RUEL 26.25 mls/hr Protocol Titration 5 MCG/MIN Meropenem 500 mg/ Dextrose 100 mls @ 200 mls/hr 05/23/17 08:00 05/29/17 11:08 IVPB 200 mls/hr BID RUEL Administration Dobutamine HCl/Dextrose 250,000 mcg in 250 mls @ 24.889 mls/hr 05/23/17 16:45 05/29/17 05:00 Dobutamine 250 Mg/D5w - IV 5 mcg/kg/min TITR RUEL 24.889 mls/hr Protocol Titration 5 MCG/KG/MIN Propofol 1,000,000 mcg in 100 mls @ 2.754 mls/hr 05/27/17 11:15 05/29/17 12: 47 Diprivan - IVPB Not Given TITR RUEL Protocol 5 MCG/KG/MIN Sodium Chloride 250 mls @ 3,000 mls/hr 05/28/17 15:50 Normal Saline - IV 05/29/17 15:49 PRN PRN Hypotension during Dialysis Sodium Chloride 250 mls @ 3,000 mls/hr 05/29/17 12:26 Normal Saline - IV 05/30/17 12:26 PRN PRN Hypotension during Dialysis Insulin Aspart 1 vial 05/22/17 22:00 05/29/17 12:46 Novolog Vial Sliding Scale - SQ 4 units ACHS RUEL Administration Protocol Midodrine 5 mg 05/21/17 23:15 05/29/17 14:22 Proamatine - PO 5 mg TID-MID RUEL Administration Mometasone Furoate 1 puff 05/21/17 22:00 05/28/17 21:43 Asmanex 220mcg - IH Not Given HS RUEL Morphine Sulfate 2 mg 05/26/17 15:27 05/26/17 18:36 Morphine Sulfate IVPUSH 2 mg Q6H PRN Administration PAIN LEVEL 1-5 Multivit/Ca Carb/B Cmplx/FA/Prenat 1 tablet 05/22/17 10:00 05/29/17 10:55 Nephro-Pancho - PO 1 tablet DAILY RUEL Administration Pantoprazole Sodium 40 mg 05/25/17 10:00 05/29/17 10:56 Protonix Iv IVPUSH 40 mg BID RUEL Administration ASSESSMENT/PLAN: 56F w/ hx of DM, HTN, PR s/p CABG (03/2017), ESRD on Hemodialysis (M/W/F), and hemorrhoids who presented with BRBPR, admitted to ICU with shock, now s/p intubation on vent, on pressors and abx. #GI -likely lower GI bleed source from hemorrhoids, can't r/o other lower sources (anal fissure, rectal or colonic mass, diverticulosis, AVM) or upper ( PUD, gastritis/esophagitis, etc). Etiology possibly 2/2 coagulopathy -Hgb of 7.6 today, downtrending -IV protonix -GI on board, Dr. Iniguez -home ASA held -pt given one unit of PRBCs today #CV -troponinemia, likely due to clearance failure as pt is ESRD. Trops peaked at 2.02 -shock: continue levo (currently @ 6) and dobutamine (currently @ 5). wean as tolerated. continue hydrocortisone 100mg q8h -CVP: 17--> 10 -cardiology on board, Dr. Stapleton. recs appreciated -b/l gangrenous feet. vascular on board, Dr. Smith #Resp -intubated on vent. wean as tolerated -continue propofol #hematology -hematology on board, Dr. Salomon, recs appreciated -elevated PT, INR, and PTT in conjunction with anemia and thrombocytopenia and pt's comorbidities and clinical presentation support diagnosis of coaguloapathy. -s/p FFP, vit. K, DDAVP, platelets -continue to trend labs -per hematology: administer platelets/FFP/cryo if platelets < 30, actively bleeding, or fibrinogen < 100 #nephro -renal on board, Dr. Plummer. recs appreciated. Pt to receive HD again today. #neuro -sedated #ID -dry gangrene on b/l feet -afebrile, minimal leukocytosis. Cxs negative -ID on board, Dr. Collins. continue meropenem and start vanc. repeat infectious workup. #FEN/ppx -pressors -electrolytes wnl -tube feeds held due to GI bleed -protonix -no DVT ppx as elevated INR and GI bleed #Dispo -full code Case discussed with attending, Dr. Vargas. -Den Dsouza MD PGY1 ICU Team Visit type - Emergency Visit Emergency Visit: Yes ED Registration Date: 05/21/17 Care time: The patient presented to the Emergency Department on the above date and was hospitalized for further evaluation of their emergent condition. - New Patient This patient is new to me today: No - Critical Care Critical Care patient: Yes Total Critical Care Time (in minutes): 36 Critical Care Statement: The care of this patient involved high complexity decision making to prevent further life threatening deterioration of the patient 's condition and/or to evaluate & treat vital organ system(s) failure or risk of failure.
[2017-05-29] MEDS: DOBUTAMINE 250 MG/D5W - 250,000 MCG/250 ML INFUS.BAG IV SCH ×2 (14:52→16:51)
[2017-05-29] MEDS ORDERED: SODIUM CHLORIDE 250 ML IV PRN (16:18)
--- NOTE | 2017-05-29 16:24 | PN ---
Progress Note, Physician Chief Complaint: Intubated Volume overload Nursing report of bloody BM again History of Present Illness: 56F w/ DM, HTN, s/p CABG 03/2017 after NSTEMI at [facility] with Dr. Martines MVElvira and TVR , ESRD on Hemodialysis (M/W/F) and PVD, who presented from [facility] for rectal bleeding. She was severely anemic and hypotensive. SP multiple PRBC and on Nor- epi. Takes aspirin, but no other AC. coumadin was stopped on 05/11. The patient denies chest pain, shortness of breath. - Current Medication List Current Medications: Active Medications Albumin Human (Albumin Human 25%) 12.5 gm IVPB Q30M RUEL Stop: 05/29/17 18:01 Albuterol/Ipratropium (Duoneb -) 1 amp NEB Q4HPO RUEL Last Admin: 05/29/17 14:18 Dose: 1 amp Amino Acids (Prosource No Carb Liquid Pkt) 30 ml PO DAILY RUEL Last Admin: 05/29/17 10:56 Dose: 30 ml Calcitriol (Rocaltrol -) 0.25 mcg PO DAILY RUEL Last Admin: 05/29/17 11:26 Dose: Not Given Chlorhexidine Gluconate (Hibiclens For Decolonization -) 1 applic TP HS RUEL Last Admin: 05/28/17 21:44 Dose: 1 applic Gabapentin (Neurontin -) 100 mg NGT TID RUEL Last Admin: 05/29/17 14:22 Dose: 100 mg Hydrocortisone Sodium Succinate (Solu-Cortef -) 100 mg IVPB Q8H-IV RUEL Last Admin: 05/29/17 10:57 Dose: 100 mg Norepinephrine Bitartrate 8, (000 mcg/ Dextrose) 500 mls @ 18.75 mls/hr IV TITR RUEL; 5 MCG/MIN PRN Reason: Protocol Last Titration: 05/29/17 14:38 Dose: 7 mcg/min, 26.25 mls/hr Meropenem 500 mg/ Dextrose 100 mls @ 200 mls/hr IVPB BID RUEL Last Admin: 05/29/17 11:08 Dose: 200 mls/hr Dobutamine HCl/Dextrose (Dobutamine 250 Mg/D5w -) 250,000 mcg in 250 mls @ 24.889 mls/hr IV TITR RUEL; 5 MCG/KG/MIN PRN Reason: Protocol Last Admin: 05/29/17 14:52 Dose: 5 mcg/kg/min, 24.889 mls/hr Propofol (Diprivan -) 1,000,000 mcg in 100 mls @ 2.754 mls/hr IVPB TITR RUEL; 5 MCG/KG/MIN PRN Reason: Protocol Last Admin: 05/29/17 12:47 Dose: Not Given Sodium Chloride (Normal Saline -) 250 mls @ 3,000 mls/hr IV PRN PRN PRN Reason: Hypotension during Dialysis Stop: 05/30/17 16:17 Insulin Aspart (Novolog Vial Sliding Scale -) 1 vial SQ ACHS RUEL PRN Reason: Protocol Last Admin: 05/29/17 12:46 Dose: 4 units Midodrine (Proamatine -) 5 mg PO TID-MID ON LICENSE OF [facility] Last Admin: 05/29/17 14:22 Dose: 5 mg Mometasone Furoate (Asmanex 220mcg -) 1 puff IH HS ON LICENSE OF [facility] Last Admin: 05/28/17 21:43 Dose: Not Given Morphine Sulfate (Morphine Sulfate) 2 mg IVPUSH Q6H PRN PRN Reason: PAIN LEVEL 1-5 Last Admin: 05/26/17 18:36 Dose: 2 mg Multivit/Ca Carb/B Cmplx/FA/Prenat (Nephro-Pancho -) 1 tablet PO DAILY ON LICENSE OF [facility] Last Admin: 05/29/17 10:55 Dose: 1 tablet Pantoprazole Sodium (Protonix Iv) 40 mg IVPUSH BID ON LICENSE OF [facility] Last Admin: 05/29/17 10:56 Dose: 40 mg - Objective Vital Signs: Vital Signs Temperature 98.6 F 05/29/17 14:00 Pulse Rate 90 05/29/17 14:38 Respiratory Rate 14 05/29/17 14:17 Blood Pressure 97/43 05/29/17 14:52 O2 Sat by Pulse Oximetry (%) 100 05/29/17 08:05 Neck: Yes: Supple Cardiovascular: Yes: Pulse Irregular, S1, S2 Respiratory: Yes: Mechanically Ventilated Extremities: Yes: Other (anasarca) Edema: LLE: 2+, RLE: 2+ Labs: CBC, BMP 05/29/17 06:15 05/29/17 06:15 INR, PTT INR 1.18 (0.82-1.09) H 05/29/17 06:15 Fibrinogen 137.0 mg/dL (238-498) L 05/29/17 06:15 Assessment/Plan 56F w/ DM, HTN, s/p CABG 03/2017 after NSTEMI at [facility] with Dr. Martines MVR and TVR , ESRD on Hemodialysis (M/W/F) and PVD, who presented from [facility] for rectal bleeding. She was severely anemic and hypotensive. SP multiple PRBC and on Nor- epi. Takes aspirin, but no other AC. coumadin was stopped on 05/11. 1) Systolic CHF On dobutamine for cardiac support and levophed for pressure support Volume overloaded. HD ultrafiltration for volume removal. Increased levophed to attempt to get volume off with dialysis No AC as admitted with severe anemia and also with thrombocytopenia and active bloody BM. Getting transfusion with dialysis. -Vent management as per ICU team. Plan is for decrease of sedation to asses mental status as per ICU team Abx as per ID
[2017-05-29] MEDS: NOREPINEPHRINE BITARTRATE 8,000 MCG in DEXTROSE 5%-WATER - 492 ML IV SCH (16:51)
[2017-05-29] MEDS: ALBUMIN HUMAN 25% 12.5 GM/50 ML VIAL IVPB SCH ×2 (18:21→18:23)
[2017-05-29 20:14] LABS: HEMATOCRIT 28.5 % (32.4-45.2); HEMOGLOBIN 9.5 GM/dL (10.7-15.3); MCH 27.9 pg (25.7-33.7); MCHC 33.4 g/dl (32.0-36.0); MEAN CELL VOLUME 83.6 fl (80-96); MEAN PLT VOLUME 9.7 fl (7.5-11.1); PLATELET COUNT 77 K/MM3 (134-434); RBC 3.41 M/mm3 (3.60-5.2); RDW 20.3 % (11.6-15.6); WHITE BLOOD COUNT 6.7 K/mm3 (4.0-10.0)
[2017-05-29 20:37] LABS: INR 1.07 (0.82-1.09); PROTHROMBIN TIME (PATIENT) 12.1 SEC (9.98-11.88)
[2017-05-29 20:40] LABS: ACTIVATED PTT 30.6 SECONDS (26.9-34.4)
[2017-05-29] MEDS ORDERED: BENZOIN/ALOE VERA/STORAX/TOLU 58 ML BOTTLE ONE (20:58)
[2017-05-29] MEDS: MOMETASONE FUROATE 220 MCG/IH INHALER IH SCH (21:59)
[2017-05-29] MEDS: CHLORHEXIDINE GLUCONATE 4% CLEANSER FOR DECOLONIZATION TP SCH (21:59)
[2017-05-30] MEDS: HYDROCORTISONE SOD SUCCINATE 100 MG/2 ML VIAL IVPB SCH ×3 (01:33→19:36)
[2017-05-30] MEDS: ALBUTEROL SO4 2.5/IPRATROPIUM 0.5 INH SOL 3 ML VIAL.NEB. NEB SCH ×6 (02:05→22:51)
[2017-05-30] MEDS ORDERED: NOREPINEPHRINE BITARTRATE 4 MG/4 ML ML IV ONE (05:40)
[2017-05-30] MEDS ORDERED: PROPOFOL 1,000,000 MCG/100 ML VIAL ONE ×2 (05:40→19:40)
[2017-05-30] MEDS: GABAPENTIN 100 MG CAPSULE (FP) NGT SCH ×3 (05:47→21:11)
[2017-05-30 06:06] LABS: HEMATOCRIT 27.4 % (32.4-45.2); HEMOGLOBIN 9.2 GM/dL (10.7-15.3); MCH 27.8 pg (25.7-33.7); MCHC 33.5 g/dl (32.0-36.0); RDW 20.5 % (11.6-15.6); WHITE BLOOD COUNT 6.4 K/mm3 (4.0-10.0)
[2017-05-30 06:14] LABS: ADD RBC MORPHOLOGY YES
[2017-05-30] MEDS: INSULIN SLIDING SCALE (NOVOLOG) 1 VIAL SQ SCH ×4 (06:20→21:25)
[2017-05-30 06:28] LABS: ANION GAP 12 (8-16); BLOOD UREA NITROGEN 22 mg/dL (7-18); CALCIUM 7.9 mg/dL (8.5-10.1); CHLORIDE 96 mmol/L (98-107); CO2 28 mmol/L (21-32); CREATININE 2.1 mg/dL (0.55-1.02); GLUCOSE,RANDOM 161 mg/dL (74-106); MAGNESIUM 2.1 mg/dL (1.8-2.4); PHOSPHOROUS 2.9 mg/dL (2.5-4.9); POTASSIUM 3.4 mmol/L (3.5-5.1); SGOT/AST 47 U/L (15-37); SGPT/ALT 21 U/L (12-78); SODIUM 136 mmol/L (136-145)
[2017-05-30 06:30] LABS: ALK PHOS 110 U/L (45-117); BILIRUBIN,TOTAL 2.3 mg/dL (0.2-1.0); TOT PROT 5.3 g/dl (6.4-8.2)
[2017-05-30 07:10] LABS: INR 1.16 (0.82-1.09); PROTHROMBIN TIME (PATIENT) 13.1 SEC (9.98-11.88)
[2017-05-30 07:11] LABS: ACTIVATED PTT 31.1 SECONDS (26.9-34.4)
--- NOTE | 2017-05-30 09:03 | PN ---
Physical Exam: SUBJECTIVE: Patient seen and examined Pt received 1 unit of PRBCs yesterday during dialysis. This am, pt had episode of desaturation, was found to be biting the tube, so given increased propofol which resolved it. OBJECTIVE: Vital Signs Period Temp Pulse Resp BP Sys/Ceron Pulse Ox Last 24 Hr 98.2 F-99.1 F 90-100 14-15 80-115/40-58 100-100 GENERAL: middle aged female, lying in bed, on vent, sedated, with anasarca HEENT: ET tube in place, NG tube in place LUNGS: mechanical breath sounds HEART: tachycardic ABDOMEN: obese, soft, NT EXTREMITIES: 2+ pitting edema in all 4 extremities. gangrene in b/l feet. no distal pulses able to be palpated NEUROLOGICAL: unresponsive Laboratory Results - last 24 hr 05/28/17 05/28/17 05/29/17 06:00 21:49 05:22 WBC RBC Hgb Hct MCV MCH MCHC RDW Plt Count MPV Neutrophils % Lymphocytes % PT with INR INR PTT (Actin FS) Fibrinogen Sodium Potassium Chloride Carbon Dioxide Anion Gap BUN Creatinine Creat Clearance w eGFR POC Glucometer 210.61119 167.04248 Random Glucose Calcium Phosphorus Magnesium Total Bilirubin AST ALT Alkaline Phosphatase Total Protein Albumin Anti-A Titer Cancelled Blood Type Cancelled Antibody Screen Cancelled Crossmatch See Detail 05/29/17 05/29/17 05/29/17 12:43 14:30 16:59 WBC RBC Hgb Hct MCV MCH MCHC RDW Plt Count MPV Neutrophils % Lymphocytes % PT with INR INR PTT (Actin FS) Fibrinogen Sodium Potassium Chloride Carbon Dioxide Anion Gap BUN Creatinine Creat Clearance w eGFR POC Glucometer [phone] Random Glucose Calcium Phosphorus Magnesium Total Bilirubin AST ALT Alkaline Phosphatase Total Protein Albumin Anti-A Titer Blood Type O POSITIVE Antibody Screen Negative Crossmatch See Detail 05/29/17 05/29/17 05/29/17 19:30 19:30 22:37 WBC 6.7 RBC 3.41 L D Hgb 9.5 L D Hct 28.5 L D MCV 83.6 MCH 27.9 MCHC 33.4 RDW 20.3 H D Plt Count 77 L D MPV 9.7 Neutrophils % Lymphocytes % PT with INR 12.10 H INR 1.07 PTT (Actin FS) 30.6 Fibrinogen 149.0 L Sodium Potassium Chloride Carbon Dioxide Anion Gap BUN Creatinine Creat Clearance w eGFR POC Glucometer [phone] Random Glucose Calcium Phosphorus Magnesium Total Bilirubin AST ALT Alkaline Phosphatase Total Protein Albumin Anti-A Titer Blood Type Antibody Screen Crossmatch 05/30/17 05/30/17 05/30/17 05:45 05:45 05:45 WBC 6.4 RBC 3.30 L Hgb 9.2 L Hct 27.4 L MCV 83.0 MCH 27.8 MCHC 33.5 RDW 20.5 H Plt Count MPV Neutrophils % No Result Required. Lymphocytes % No Result Required. PT with INR 13.10 H INR 1.16 H PTT (Actin FS) 31.1 Fibrinogen 149.0 L Sodium 136 Potassium 3.4 L Chloride 96 L Carbon Dioxide 28 Anion Gap 12 BUN 22 H Creatinine 2.1 H Creat Clearance w eGFR 24.19 POC Glucometer Random Glucose 161 H Calcium 7.9 L Phosphorus 2.9 Magnesium 2.1 Total Bilirubin 2.3 H D AST 47 H ALT 21 Alkaline Phosphatase 110 Total Protein 5.3 L Albumin 2.0 L Anti-A Titer Blood Type Antibody Screen Crossmatch Active Medications Generic Name Dose Route Start Last Admin Trade Name Freq PRN Reason Stop Dose Admin Albuterol/Ipratropium 1 amp 05/21/17 18:00 05/30/17 06:35 Duoneb - NEB 1 amp Q4HPO RUEL Administration Amino Acids 30 ml 05/26/17 10:00 05/29/17 10:56 Prosource No Carb Liquid Pkt PO 30 ml DAILY RUEL Administration Calcitriol 0.25 mcg 05/23/17 10:45 05/29/17 11:26 Rocaltrol - PO Not Given DAILY RUEL Chlorhexidine Gluconate 1 applic 05/21/17 22:00 05/29/17 21:59 Hibiclens For Decolonization - TP 1 applic HS RUEL Administration Gabapentin 100 mg 05/26/17 22:00 05/30/17 05:47 Neurontin - NGT 100 mg TID RUEL Administration Hydrocortisone Sodium Succinate 100 mg 05/23/17 18:00 05/30/17 01:33 Solu-Cortef - IVPB 100 mg Q8H-IV RUEL Administration Norepinephrine Bitartrate 8, 500 mls @ 18.75 mls/hr 05/21/17 16:45 05/29/17 19:02 000 mcg/ Dextrose IV 7 mcg/min TITR RUEL 26.25 mls/hr Protocol Titration 5 MCG/MIN Meropenem 500 mg/ Dextrose 100 mls @ 200 mls/hr 05/23/17 08:00 05/29/17 21:58 IVPB 200 mls/hr BID RUEL Administration Dobutamine HCl/Dextrose 250,000 mcg in 250 mls @ 24.889 mls/hr 05/23/17 16:45 05/29/17 16:51 Dobutamine 250 Mg/D5w - IV Not Given TITR RUEL Protocol 5 MCG/KG/MIN Propofol 1,000,000 mcg in 100 mls @ 2.754 mls/hr 05/27/17 11:15 05/29/17 12: 47 Diprivan - IVPB Not Given TITR RUEL Protocol 5 MCG/KG/MIN Sodium Chloride 250 mls @ 3,000 mls/hr 05/29/17 16:18 Normal Saline - IV 05/30/17 16:17 PRN PRN Hypotension during Dialysis Insulin Aspart 1 vial 05/22/17 22:00 05/30/17 06:20 Novolog Vial Sliding Scale - SQ 2 units ACHS RUEL Administration Protocol Midodrine 5 mg 05/21/17 23:15 05/29/17 17:01 Proamatine - PO 5 mg TID-MID RUEL Administration Mometasone Furoate 1 puff 05/21/17 22:00 05/29/17 21:59 Asmanex 220mcg - IH Not Given HS RUEL Morphine Sulfate 2 mg 05/26/17 15:27 05/26/17 18:36 Morphine Sulfate IVPUSH 2 mg Q6H PRN Administration PAIN LEVEL 1-5 Multivit/Ca Carb/B Cmplx/FA/Prenat 1 tablet 05/22/17 10:00 05/29/17 10:55 Nephro-Pancho - PO 1 tablet DAILY RUEL Administration Pantoprazole Sodium 40 mg 05/25/17 10:00 05/29/17 21:58 Protonix Iv IVPUSH 40 mg BID RUEL Administration ASSESSMENT/PLAN: 56F w/ hx of DM, HTN, MS s/p CABG (03/2017), ESRD on Hemodialysis (M/W/F), and hemorrhoids who presented with BRBPR, admitted to ICU with shock, now s/p intubation on vent, on pressors and abx. #GI -likely lower GI bleed source from hemorrhoids, can't r/o other lower sources (anal fissure, rectal or colonic mass, diverticulosis, AVM) or upper ( PUD, gastritis/esophagitis, etc). Etiology possibly 2/2 coagulopathy -Hgb of 9.2 today -IV protonix -GI on board, Dr. Iniguez -home ASA held -s/p 1 unit of PRBCs yesterday #CV -troponinemia, likely due to clearance failure as pt is ESRD. Trops peaked at 2.02 -shock: continue levo (currently @ 7) and dobutamine (currently @ 5). wean as tolerated. continue hydrocortisone 100mg q8h -external BP cuff not correlating with A-line BP. Consider A-line change to axillary site on friday. -CVP: 11 -cardiology on board, Dr. Stapleton. recs appreciated -b/l gangrenous feet. vascular on board, Dr. Smith #Resp -intubated on vent. wean as tolerated -continue propofol #hematology -hematology on board, Dr. Salomon, recs appreciated -elevated PT, INR, and PTT in conjunction with anemia and thrombocytopenia and pt's comorbidities and clinical presentation support diagnosis of coaguloapathy. -s/p FFP, vit. K, DDAVP, platelets -continue to trend labs -per hematology: administer platelets/FFP/cryo if platelets < 30, actively bleeding, or fibrinogen < 100 #nephro -renal on board, Dr. Plummer. recs appreciated. Pt received HD yesterday #neuro -sedated #ID -dry gangrene on b/l feet -afebrile, no leukocytosis. Cxs negative to date -ID on board, Dr. Collins. continue meropenem (day 7). vanc given yesterday. #FEN/ppx -pressors -electrolytes wnl -tube feeds held due to GI bleed -protonix -no DVT ppx as elevated INR and GI bleed #Dispo -full code -continue goals of care discussion with family Case discussed with attending, Dr. Lozada. -Den Dsouza MD PGY1 ICU Team Visit type - Emergency Visit Emergency Visit: Yes ED Registration Date: 05/21/17 Care time: The patient presented to the Emergency Department on the above date and was hospitalized for further evaluation of their emergent condition. - New Patient This patient is new to me today: No - Critical Care Critical Care patient: Yes Total Critical Care Time (in minutes): 38 Critical Care Statement: The care of this patient involved high complexity decision making to prevent further life threatening deterioration of the patient 's condition and/or to evaluate & treat vital organ system(s) failure or risk of failure.
[2017-05-30] MEDS: PANTOPRAZOLE SODIUM 40 MG VIAL IVPUSH SCH ×2 (09:42→21:11)
[2017-05-30] MEDS: AMINO ACIDS/PROTEIN HYDROLYS 30 ML LIQUID.PKT PO SCH (09:42)
[2017-05-30] MEDS: CALCITRIOL 0.25 MCG CAPSULE (FP) PO SCH (09:42)
[2017-05-30] MEDS: VITAMIN B COMP W-C 1 EA TABLET PO SCH (09:42)
[2017-05-30] MEDS: MEROPENEM 500 MG in DEXTROSE 5%-WATER - 100 ML IVPB SCH ×2 (09:43→21:11)
[2017-05-30] MEDS ORDERED: PT OWN MED DRAWER 7, Y5N ONE (09:43)
[2017-05-30] MEDS: MIDODRINE HCL 5 MG TABLET PO SCH ×3 (09:44→19:36)
--- NOTE | 2017-05-30 10:10 | PN ---
Progress Note, Physician History of Present Illness: patient seen and examined in ICU. Remains vent dependent. Sedated On vent. On pressors. - Current Medication List Current Medications: Active Medications Albuterol/Ipratropium (Duoneb -) 1 amp NEB Q4HPO RUEL Last Admin: 05/30/17 09:20 Dose: 1 amp Amino Acids (Prosource No Carb Liquid Pkt) 30 ml PO DAILY RUEL Last Admin: 05/30/17 09:42 Dose: 30 ml Calcitriol (Rocaltrol -) 0.25 mcg PO DAILY RUEL Last Admin: 05/30/17 09:42 Dose: 0.25 mcg Chlorhexidine Gluconate (Hibiclens For Decolonization -) 1 applic TP HS RUEL Last Admin: 05/29/17 21:59 Dose: 1 applic Gabapentin (Neurontin -) 100 mg NGT TID RUEL Last Admin: 05/30/17 05:47 Dose: 100 mg Hydrocortisone Sodium Succinate (Solu-Cortef -) 100 mg IVPB Q8H-IV RUEL Last Admin: 05/30/17 09:42 Dose: 100 mg Norepinephrine Bitartrate 8, (000 mcg/ Dextrose) 500 mls @ 18.75 mls/hr IV TITR RUEL; 5 MCG/MIN PRN Reason: Protocol Last Titration: 05/29/17 19:02 Dose: 7 mcg/min, 26.25 mls/hr Meropenem 500 mg/ Dextrose 100 mls @ 200 mls/hr IVPB BID RUEL Last Admin: 05/30/17 09:43 Dose: 200 mls/hr Dobutamine HCl/Dextrose (Dobutamine 250 Mg/D5w -) 250,000 mcg in 250 mls @ 24.889 mls/hr IV TITR RUEL; 5 MCG/KG/MIN PRN Reason: Protocol Last Admin: 05/29/17 16:51 Dose: Not Given Propofol (Diprivan -) 1,000,000 mcg in 100 mls @ 2.754 mls/hr IVPB TITR RUEL; 5 MCG/KG/MIN PRN Reason: Protocol Last Admin: 05/29/17 12:47 Dose: Not Given Sodium Chloride (Normal Saline -) 250 mls @ 3,000 mls/hr IV PRN PRN PRN Reason: Hypotension during Dialysis Stop: 05/30/17 16:17 Insulin Aspart (Novolog Vial Sliding Scale -) 1 vial SQ ACHS [facility] PRN Reason: Protocol Last Admin: 05/30/17 06:20 Dose: 2 units Midodrine (Proamatine -) 5 mg PO TID-MID [facility] Last Admin: 05/30/17 09:44 Dose: 5 mg Mometasone Furoate (Asmanex 220mcg -) 1 puff IH HS [facility] Last Admin: 05/29/17 21:59 Dose: Not Given Morphine Sulfate (Morphine Sulfate) 2 mg IVPUSH Q6H PRN PRN Reason: PAIN LEVEL 1-5 Last Admin: 05/26/17 18:36 Dose: 2 mg Multivit/Ca Carb/B Cmplx/FA/Prenat (Nephro-Pancho -) 1 tablet PO DAILY [facility] Last Admin: 05/30/17 09:42 Dose: 1 tablet Pantoprazole Sodium (Protonix Iv) 40 mg IVPUSH BID [facility] Last Admin: 05/30/17 09:42 Dose: 40 mg - Objective Vital Signs: Vital Signs Temperature 98.7 F 05/30/17 06:00 Pulse Rate 94 H 05/30/17 08:22 Respiratory Rate 14 05/30/17 08:22 Blood Pressure 110/47 05/30/17 06:00 O2 Sat by Pulse Oximetry (%) 95 05/30/17 08:22 Constitutional: Yes: Other (sedated/ intubated) Eyes: Yes: WNL Cardiovascular: Yes: Regular Rate and Rhythm Respiratory: Yes: Diminished Gastrointestinal: Yes: Soft Extremities: Yes: Other (necrotic) Neurological: Yes: Other (sedated) Labs: CBC, BMP 05/30/17 05:45 05/30/17 05:45 INR, PTT INR 1.16 (0.82-1.09) H 05/30/17 05:45 Fibrinogen 149.0 mg/dL (238-498) L 05/30/17 05:45 Problem List - Problems (1) Respiratory failure Code(s): J96.90 - RESPIRATORY FAILURE, UNSP, UNSP W HYPOXIA OR HYPERCAPNIA (2) Coagulopathy Code(s): D68.9 - COAGULATION DEFECT, UNSPECIFIED (3) GI bleed Code(s): K92.2 - GASTROINTESTINAL HEMORRHAGE, UNSPECIFIED (4) Gangrene Code(s): I96 - GANGRENE, NOT ELSEWHERE CLASSIFIED (5) Hx of CABG Code(s): Z95.1 - PRESENCE OF AORTOCORONARY BYPASS GRAFT Assessment/Plan patient--remains critically ill. sepsis- GI bleed respiratory failure recent CABG-bioMVR/TVR esrd--on hemodialysis severe PAD with dry gangrene of both legs thrombocytopenia- hypovolemic shock. meds reviewed Continue present care Antibiotics. Overall condition/and prognosis poor. feeding held due to GI bleed tpn ? Will discuss with ICU team Will follow. discussed also with nursing staff critical care time--- 30 minutes
--- NOTE | 2017-05-30 10:58 | PN ---
Progress Note (short form) - Note Progress Note: remains intubated sedated on pressors Vital Signs Period Temp Pulse Resp BP Sys/Ceron Pulse Ox Last 24 Hr 98.4 F-99.1 F 90-100 14-15 80-112/40-58 95-100 multiple lines cor-rrr sternal incision clean and dry lungs decreased bs at bases abd soft,nt ext dry gangrene CBC, BMP 05/30/17 05:45 05/30/17 05:45 a/p sepsis- unspecified GI bleed respiratory failure recent CABG-bioMVR/TVR esrd/hd severe PAD with dry gangrene of both legs thrombocytopenia- most likely secondary to sepsis continue meropenem day #7 vancomycin given yesterday f/u cultures-negative to date overall prognosis is poor vanco level in am Problem List - Problems (1) Sepsis Code(s): A41.9 - SEPSIS, UNSPECIFIED ORGANISM (2) GI bleed Code(s): K92.2 - GASTROINTESTINAL HEMORRHAGE, UNSPECIFIED (3) Respiratory failure Code(s): J96.90 - RESPIRATORY FAILURE, UNSP, UNSP W HYPOXIA OR HYPERCAPNIA (4) Gangrene Code(s): I96 - GANGRENE, NOT ELSEWHERE CLASSIFIED (5) H/O heart valve replacement with bioprosthetic valve Code(s): Z95.3 - PRESENCE OF XENOGENIC HEART VALVE (6) ESRD (end stage renal disease) Code(s): N18.6 - END STAGE RENAL DISEASE
[2017-05-30] MEDS: PROPOFOL 1,000,000 MCG/100 ML VIAL IVPB SCH (12:00)
--- NOTE | 2017-05-30 12:21 | PN ---
Teaching Attending Note Name of Resident: Den Dsouza ATTENDING PHYSICIAN STATEMENT I saw and evaluated the patient. I reviewed the resident's note and discussed the case with the resident. I agree with the resident's findings and plan as documented. SUBJECTIVE: Patient seen and examined in the ICU. Remains intubated and sedated. Remains on Levophed on dobutamine drips. AC Mode of vent. Overall no significant change in overall condition. OBJECTIVE: Intake & Output 05/27/17 05/28/17 05/29/17 05/30/17 23:59 23:59 23:59 23:59 Intake Total 2452.2 2225.8 2339.6 777.2 Output Total 0 0 Balance 2452.2 2225.8 2339.6 777.2 Weight 202 lb 6.4 oz 205 lb 14.4 oz 203 lb 200 lb 1.6 oz Last Vital Signs Temp Pulse Resp BP Pulse Ox 98.7 F 92 H 14 114/48 100 05/30/17 06:00 05/30/17 12:15 05/30/17 12:15 05/30/17 12:15 05/30/17 11:35 Active Medications Albuterol/Ipratropium (Duoneb -) 1 amp NEB Q4HPO [facility]EL Last Admin: 05/30/17 09:20 Dose: 1 amp Amino Acids (Prosource No Carb Liquid Pkt) 30 ml PO DAILY [facility] Last Admin: 05/30/17 09:42 Dose: 30 ml Calcitriol (Rocaltrol -) 0.25 mcg PO DAILY [facility] Last Admin: 05/30/17 09:42 Dose: 0.25 mcg Chlorhexidine Gluconate (Hibiclens For Decolonization -) 1 applic TP HS RUEL Last Admin: 05/29/17 21:59 Dose: 1 applic Gabapentin (Neurontin -) 100 mg NGT TID [facility] Last Admin: 05/30/17 05:47 Dose: 100 mg Hydrocortisone Sodium Succinate (Solu-Cortef -) 100 mg IVPB Q8H-IV [facility] Last Admin: 05/30/17 09:42 Dose: 100 mg Norepinephrine Bitartrate 8, (000 mcg/ Dextrose) 500 mls @ 18.75 mls/hr IV TITR RUEL; 5 MCG/MIN PRN Reason: Protocol Last Titration: 05/29/17 19:02 Dose: 7 mcg/min, 26.25 mls/hr Meropenem 500 mg/ Dextrose 100 mls @ 200 mls/hr IVPB BID [facility] Last Admin: 05/30/17 09:43 Dose: 200 mls/hr Dobutamine HCl/Dextrose (Dobutamine 250 Mg/D5w -) 250,000 mcg in 250 mls @ 24.889 mls/hr IV TITR RUEL; 5 MCG/KG/MIN PRN Reason: Protocol Last Admin: 05/29/17 16:51 Dose: Not Given Propofol (Diprivan -) 1,000,000 mcg in 100 mls @ 2.754 mls/hr IVPB TITR RUEL; 5 MCG/KG/MIN PRN Reason: Protocol Last Admin: 05/29/17 12:47 Dose: Not Given Sodium Chloride (Normal Saline -) 250 mls @ 3,000 mls/hr IV PRN PRN PRN Reason: Hypotension during Dialysis Stop: 05/30/17 16:17 Insulin Aspart (Novolog Vial Sliding Scale -) 1 vial SQ ACHS [facility] PRN Reason: Protocol Last Admin: 05/30/17 06:20 Dose: 2 units Midodrine (Proamatine -) 5 mg PO TID-MID [facility] Last Admin: 05/30/17 09:44 Dose: 5 mg Mometasone Furoate (Asmanex 220mcg -) 1 puff IH HS [facility] Last Admin: 05/29/17 21:59 Dose: Not Given Morphine Sulfate (Morphine Sulfate) 2 mg IVPUSH Q6H PRN PRN Reason: PAIN LEVEL 1-5 Last Admin: 05/26/17 18:36 Dose: 2 mg Multivit/Ca Carb/B Cmplx/FA/Prenat (Nephro-Pancho -) 1 tablet PO DAILY [facility] Last Admin: 05/30/17 09:42 Dose: 1 tablet Pantoprazole Sodium (Protonix Iv) 40 mg IVPUSH BID [facility] Last Admin: 05/30/17 09:42 Dose: 40 mg Gen: intubated, sedated, tachypneic Heart: RRR Lung: scattered rhonchi Abd: soft, nontender Ext: + anasarca Laboratory Results - last 24 hr 05/28/17 05/29/17 05/29/17 06:00 12:43 14:30 WBC RBC Hgb Hct MCV MCH MCHC RDW Plt Count MPV Neutrophils % Lymphocytes % PT with INR INR PTT (Actin FS) Fibrinogen Sodium Potassium Chloride Carbon Dioxide Anion Gap BUN Creatinine Creat Clearance w eGFR POC Glucometer [phone] Random Glucose Calcium Phosphorus Magnesium Total Bilirubin AST ALT Alkaline Phosphatase Total Protein Albumin Anti-A Titer Cancelled Blood Type Cancelled O POSITIVE Antibody Screen Cancelled Negative Crossmatch See Detail See Detail 05/29/17 05/29/17 05/29/17 16:59 19:30 19:30 WBC 6.7 RBC 3.41 L D Hgb 9.5 L D Hct 28.5 L D MCV 83.6 MCH 27.9 MCHC 33.4 RDW 20.3 H D Plt Count 77 L D MPV 9.7 Neutrophils % Lymphocytes % PT with INR 12.10 H INR 1.07 PTT (Actin FS) 30.6 Fibrinogen 149.0 L Sodium Potassium Chloride Carbon Dioxide Anion Gap BUN Creatinine Creat Clearance w eGFR POC Glucometer [phone] Random Glucose Calcium Phosphorus Magnesium Total Bilirubin AST ALT Alkaline Phosphatase Total Protein Albumin Anti-A Titer Blood Type Antibody Screen Crossmatch 05/29/17 05/30/17 05/30/17 22:37 05:22 05:45 WBC 6.4 RBC 3.30 L Hgb 9.2 L Hct 27.4 L MCV 83.0 MCH 27.8 MCHC 33.5 RDW 20.5 H Plt Count MPV Neutrophils % No Result Required. Lymphocytes % No Result Required. PT with INR INR PTT (Actin FS) Fibrinogen Sodium Potassium Chloride Carbon Dioxide Anion Gap BUN Creatinine Creat Clearance w eGFR POC Glucometer [phone] Random Glucose Calcium Phosphorus Magnesium Total Bilirubin AST ALT Alkaline Phosphatase Total Protein Albumin Anti-A Titer Blood Type Antibody Screen Crossmatch 05/30/17 05/30/17 05:45 05:45 WBC RBC Hgb Hct MCV MCH MCHC RDW Plt Count MPV Neutrophils % Lymphocytes % PT with INR 13.10 H INR 1.16 H PTT (Actin FS) 31.1 Fibrinogen 149.0 L Sodium 136 Potassium 3.4 L Chloride 96 L Carbon Dioxide 28 Anion Gap 12 BUN 22 H Creatinine 2.1 H Creat Clearance w eGFR 24.19 POC Glucometer Random Glucose 161 H Calcium 7.9 L Phosphorus 2.9 Magnesium 2.1 Total Bilirubin 2.3 H D AST 47 H ALT 21 Alkaline Phosphatase 110 Total Protein 5.3 L Albumin 2.0 L Anti-A Titer Blood Type Antibody Screen Crossmatch ASSESSMENT AND PLAN: Acute Hypoxic Respiratory Failure Shock - ?Septic vs Cardiogenic GI Bleed +Troponins likely Demand Ischemia LV Systolic Dysfunction Volume Overload Thrombocytopenia Coagulopathy Gangrene CAD s/p CABG ESRD on HD HTN DM - continue empiric antibiotics - titrate pressors, inotropes to maintain MAP >65 - HD per renal with ultrafiltration - continue stress dose steroids - monitor platelets, coags, fibrinogen level - Normal transfusion thresholds - Sedation vacations to assess mental status - Trials of spontaneous breathing as - enteral feeds - DVT/GI prophylaxis - continue ICU monitoring Dr Lozada Critical care time spent in reviewing chart, evaluating patient and formulating plan 35 min
[2017-05-30 14:03] LABS: MEAN PLT VOLUME 9.7 fl (7.5-11.1); PLATELET COUNT 79 K/MM3 (134-434)
[2017-05-30 14:04] LABS: ANISOCYTOSIS 3+
[2017-05-30 14:05] LABS: PLATELET ESTIMATE DECREASED
--- NOTE | 2017-05-30 14:15 | PN ---
Progress Note, Physician History of Present Illness: Pt seen and examined at bedside. She remains in the ICU. She remains intubated. She tolerated HD last night. - Current Medication List Current Medications: Active Medications Albuterol/Ipratropium (Duoneb -) 1 amp NEB Q4HPO [facility] Last Admin: 05/30/17 09:20 Dose: 1 amp Amino Acids (Prosource No Carb Liquid Pkt) 30 ml PO DAILY [facility] Last Admin: 05/30/17 09:42 Dose: 30 ml Calcitriol (Rocaltrol -) 0.25 mcg PO DAILY [facility] Last Admin: 05/30/17 09:42 Dose: 0.25 mcg Chlorhexidine Gluconate (Hibiclens For Decolonization -) 1 applic TP HS [facility] Last Admin: 05/29/17 21:59 Dose: 1 applic Gabapentin (Neurontin -) 100 mg NGT TID [facility] Last Admin: 05/30/17 05:47 Dose: 100 mg Hydrocortisone Sodium Succinate (Solu-Cortef -) 100 mg IVPB Q8H-IV [facility] Last Admin: 05/30/17 09:42 Dose: 100 mg Norepinephrine Bitartrate 8, (000 mcg/ Dextrose) 500 mls @ 18.75 mls/hr IV TITR RUEL; 5 MCG/MIN PRN Reason: Protocol Last Titration: 05/29/17 19:02 Dose: 7 mcg/min, 26.25 mls/hr Meropenem 500 mg/ Dextrose 100 mls @ 200 mls/hr IVPB BID [facility] Last Admin: 05/30/17 09:43 Dose: 200 mls/hr Dobutamine HCl/Dextrose (Dobutamine 250 Mg/D5w -) 250,000 mcg in 250 mls @ 24.889 mls/hr IV TITR RUEL; 5 MCG/KG/MIN PRN Reason: Protocol Last Admin: 05/29/17 16:51 Dose: Not Given Propofol (Diprivan -) 1,000,000 mcg in 100 mls @ 2.754 mls/hr IVPB TITR RUEL; 5 MCG/KG/MIN PRN Reason: Protocol Last Admin: 05/29/17 12:47 Dose: Not Given Sodium Chloride (Normal Saline -) 250 mls @ 3,000 mls/hr IV PRN PRN PRN Reason: Hypotension during Dialysis Stop: 05/30/17 16:17 Insulin Aspart (Novolog Vial Sliding Scale -) 1 vial SQ ACHS [facility] PRN Reason: Protocol Last Admin: 05/30/17 06:20 Dose: 2 units Midodrine (Proamatine -) 5 mg PO TID-MID [facility] Last Admin: 05/30/17 09:44 Dose: 5 mg Mometasone Furoate (Asmanex 220mcg -) 1 puff IH HS [facility] Last Admin: 05/29/17 21:59 Dose: Not Given Morphine Sulfate (Morphine Sulfate) 2 mg IVPUSH Q6H PRN PRN Reason: PAIN LEVEL 1-5 Last Admin: 05/26/17 18:36 Dose: 2 mg Multivit/Ca Carb/B Cmplx/FA/Prenat (Nephro-Pancho -) 1 tablet PO DAILY [facility] Last Admin: 05/30/17 09:42 Dose: 1 tablet Pantoprazole Sodium (Protonix Iv) 40 mg IVPUSH BID [facility] Last Admin: 05/30/17 09:42 Dose: 40 mg - Objective Vital Signs: Vital Signs Temperature 98.7 F 05/30/17 06:00 Pulse Rate 92 H 05/30/17 12:15 Respiratory Rate 14 05/30/17 12:15 Blood Pressure 114/48 05/30/17 12:15 O2 Sat by Pulse Oximetry (%) 100 05/30/17 11:35 Constitutional: Yes: Calm Eyes: Yes: Conjunctiva Clear HENT: Yes: Atraumatic Cardiovascular: Yes: S1, S2 Respiratory: Yes: Mechanically Ventilated Gastrointestinal: Yes: Normal Bowel Sounds, Soft Genitourinary: Yes: Incontinence Musculoskeletal: Yes: Muscle Weakness Edema: Yes Edema: LUE: 1+, RUE: 1+, LLE: 1+, RLE: 1+ Integumentary: Yes: Other (gangrene right foot) Neurological: Yes: Lethargy Labs: CBC, BMP 05/30/17 05:45 05/30/17 05:45 INR, PTT INR 1.16 (0.82-1.09) H 05/30/17 05:45 Fibrinogen 149.0 mg/dL (238-498) L 05/30/17 05:45 Problem List - Problems (1) ESRD (end stage renal disease) Code(s): N18.6 - END STAGE RENAL DISEASE (2) CAD (coronary artery disease) Code(s): I25.10 - ATHSCL HEART DISEASE OF [place] CORONARY ARTERY W/O ANG PCTRS (3) Hx of CABG Code(s): Z95.1 - PRESENCE OF AORTOCORONARY BYPASS GRAFT (4) Anemia Code(s): D64.9 - ANEMIA, UNSPECIFIED (5) GI bleed Code(s): K92.2 - GASTROINTESTINAL HEMORRHAGE, UNSPECIFIED Assessment/Plan Current Medications Generic Name Dose Route Start Last Admin Trade Name Freq PRN Reason Stop Dose Admin Albuterol/Ipratropium 1 amp 05/21/17 18:00 05/30/17 09:20 Duoneb - NEB 1 amp Q4HPO RUEL Administration Amino Acids 30 ml 05/26/17 10:00 05/30/17 09:42 Prosource No Carb Liquid Pkt PO 30 ml DAILY RUEL Administration Calcitriol 0.25 mcg 05/23/17 10:45 05/30/17 09:42 Rocaltrol - PO 0.25 mcg DAILY RUEL Administration Chlorhexidine Gluconate 1 applic 05/21/17 22:00 05/29/17 21:59 Hibiclens For Decolonization - TP 1 applic HS RUEL Administration Gabapentin 100 mg 05/26/17 22:00 05/30/17 05:47 Neurontin - NGT 100 mg TID RUEL Administration Hydrocortisone Sodium Succinate 100 mg 05/23/17 18:00 05/30/17 09:42 Solu-Cortef - IVPB 100 mg Q8H-IV RUEL Administration Norepinephrine Bitartrate 8, 500 mls @ 18.75 mls/hr 05/21/17 16:45 05/29/17 19:02 000 mcg/ Dextrose IV 7 mcg/min TITR RUEL 26.25 mls/hr Protocol Titration 5 MCG/MIN Meropenem 500 mg/ Dextrose 100 mls @ 200 mls/hr 05/23/17 08:00 05/30/17 09:43 IVPB 200 mls/hr BID RUEL Administration Dobutamine HCl/Dextrose 250,000 mcg in 250 mls @ 24.889 mls/hr 05/23/17 16:45 05/29/17 16:51 Dobutamine 250 Mg/D5w - IV Not Given TITR RUEL Protocol 5 MCG/KG/MIN Propofol 1,000,000 mcg in 100 mls @ 2.754 mls/hr 05/27/17 11:15 05/29/17 12: 47 Diprivan - IVPB Not Given TITR RUEL Protocol 5 MCG/KG/MIN Sodium Chloride 250 mls @ 3,000 mls/hr 05/29/17 16:18 Normal Saline - IV 05/30/17 16:17 PRN PRN Hypotension during Dialysis Insulin Aspart 1 vial 05/22/17 22:00 05/30/17 06:20 Novolog Vial Sliding Scale - SQ 2 units ACHS RUEL Administration Protocol Midodrine 5 mg 05/21/17 23:15 05/30/17 09:44 Proamatine - PO 5 mg TID-MID RUEL Administration Mometasone Furoate 1 puff 05/21/17 22:00 05/29/17 21:59 Asmanex 220mcg - IH Not Given HS RUEL Morphine Sulfate 2 mg 05/26/17 15:27 05/26/17 18:36 Morphine Sulfate IVPUSH 2 mg Q6H PRN Administration PAIN LEVEL 1-5 Multivit/Ca Carb/B Cmplx/FA/Prenat 1 tablet 05/22/17 10:00 05/30/17 09:42 Nephro-Pancho - PO 1 tablet DAILY RUEL Administration Pantoprazole Sodium 40 mg 05/25/17 10:00 05/30/17 09:42 Protonix Iv IVPUSH 40 mg BID RUEL Administration Impression 1. ESRD 2. GI bleed likely from hemorrhoids 3. hemorrhoids 4. anemia 5. CAD 6. s/p CABG 7. DM 8. hypotension 9. lactic acidosis 10. volume overload 11. resp failure requiring intubation Plan - HD in am - was able to remove about 2.5 liters yesterday - will attempt to UF more volume tomorrow - check cxr - discussed with ICU team - heme follow up - prognosis guarded - cont vent support - monitor pulse ox - will follow Dr Plummer
--- NOTE | 2017-05-30 15:11 | PN ---
Progress Note, Physician Chief Complaint: Sedated On levophed and dobutamine History of Present Illness: 56F w/ DM, HTN, s/p CABG 03/2017 after NSTEMI at [facility] with Dr. Martines MVR and TVR , ESRD on Hemodialysis (M/W/F) and PVD, who presented from [facility] for rectal bleeding. She was severely anemic and hypotensive. SP multiple PRBC and on Nor- epi. Takes aspirin, but no other AC. coumadin was stopped on 05/11. The patient denies chest pain, shortness of breath. - Current Medication List Current Medications: Active Medications Albumin Human (Albumin Human 25%) 12.5 gm IVPB Q30M RUEL Stop: 05/31/17 15:46 Albuterol/Ipratropium (Duoneb -) 1 amp NEB Q4HPO RUEL Last Admin: 05/30/17 09:20 Dose: 1 amp Amino Acids (Prosource No Carb Liquid Pkt) 30 ml PO DAILY [facility] Last Admin: 05/30/17 09:42 Dose: 30 ml Calcitriol (Rocaltrol -) 0.25 mcg PO DAILY [facility] Last Admin: 05/30/17 09:42 Dose: 0.25 mcg Chlorhexidine Gluconate (Hibiclens For Decolonization -) 1 applic TP HS [facility] Last Admin: 05/29/17 21:59 Dose: 1 applic Gabapentin (Neurontin -) 100 mg NGT TID [facility] Last Admin: 05/30/17 05:47 Dose: 100 mg Hydrocortisone Sodium Succinate (Solu-Cortef -) 100 mg IVPB Q8H-IV [facility] Last Admin: 05/30/17 09:42 Dose: 100 mg Norepinephrine Bitartrate 8, (000 mcg/ Dextrose) 500 mls @ 18.75 mls/hr IV TITR RUEL; 5 MCG/MIN PRN Reason: Protocol Last Titration: 05/29/17 19:02 Dose: 7 mcg/min, 26.25 mls/hr Meropenem 500 mg/ Dextrose 100 mls @ 200 mls/hr IVPB BID [facility] Last Admin: 05/30/17 09:43 Dose: 200 mls/hr Dobutamine HCl/Dextrose (Dobutamine 250 Mg/D5w -) 250,000 mcg in 250 mls @ 24.889 mls/hr IV TITR RUEL; 5 MCG/KG/MIN PRN Reason: Protocol Last Admin: 05/29/17 16:51 Dose: Not Given Propofol (Diprivan -) 1,000,000 mcg in 100 mls @ 2.754 mls/hr IVPB TITR RUEL; 5 MCG/KG/MIN PRN Reason: Protocol Last Admin: 05/29/17 12:47 Dose: Not Given Sodium Chloride (Normal Saline -) 250 mls @ 3,000 mls/hr IV PRN PRN PRN Reason: Hypotension during Dialysis Stop: 05/30/17 16:17 Sodium Chloride (Normal Saline -) 250 mls @ 3,000 mls/hr IV PRN PRN PRN Reason: Hypotension during Dialysis Stop: 05/31/17 14:15 Insulin Aspart (Novolog Vial Sliding Scale -) 1 vial SQ ACHS [facility] PRN Reason: Protocol Last Admin: 05/30/17 06:20 Dose: 2 units Midodrine (Proamatine -) 5 mg PO TID-MID [facility] Last Admin: 05/30/17 09:44 Dose: 5 mg Mometasone Furoate (Asmanex 220mcg -) 1 puff IH HS [facility] Last Admin: 05/29/17 21:59 Dose: Not Given Morphine Sulfate (Morphine Sulfate) 2 mg IVPUSH Q6H PRN PRN Reason: PAIN LEVEL 1-5 Last Admin: 05/26/17 18:36 Dose: 2 mg Multivit/Ca Carb/B Cmplx/FA/Prenat (Nephro-Pancho -) 1 tablet PO DAILY [facility] Last Admin: 05/30/17 09:42 Dose: 1 tablet Pantoprazole Sodium (Protonix Iv) 40 mg IVPUSH BID [facility] Last Admin: 05/30/17 09:42 Dose: 40 mg - Objective Vital Signs: Vital Signs Temperature 98.7 F 05/30/17 06:00 Pulse Rate 92 H 05/30/17 12:15 Respiratory Rate 14 05/30/17 12:15 Blood Pressure 114/48 05/30/17 12:15 O2 Sat by Pulse Oximetry (%) 100 05/30/17 11:35 Constitutional: Yes: Other (intubated, sedated) Neck: Yes: Supple Cardiovascular: Yes: Regular Rate and Rhythm, JVD, S1, S2 Respiratory: Yes: Mechanically Ventilated Edema: Yes (anasarca) Labs: CBC, BMP 05/30/17 05:45 05/30/17 05:45 INR, PTT INR 1.16 (0.82-1.09) H 05/30/17 05:45 Fibrinogen 149.0 mg/dL (238-498) L 05/30/17 05:45 Assessment/Plan 56F w/ DM, HTN, s/p CABG 03/2017 after NSTEMI at [facility] with Dr. Martines MVR and TVR , ESRD on Hemodialysis (M/W/F) and PVD, who presented from [facility] for rectal bleeding. She was severely anemic and hypotensive. SP multiple PRBC and on Nor- epi. Takes aspirin, but no other AC. coumadin was stopped on 05/11. 1) Systolic CHF On dobutamine for cardiac support and levophed for pressure support Volume overloaded. HD ultrafiltration for volume removal. No AC as admitted with severe anemia and also with thrombocytopenia and recent bleed requiring transfusion. -Vent management as per ICU team. Plan is for decrease of sedation to asses mental status as per ICU team Abx as per ID
[2017-05-30] MEDS: DOBUTAMINE 250 MG/D5W - 250,000 MCG/250 ML INFUS.BAG IV SCH (17:21)
[2017-05-30] MEDS: NOREPINEPHRINE BITARTRATE 8,000 MCG in DEXTROSE 5%-WATER - 492 ML IV SCH (17:21)
[2017-05-30 19:53] LABS: HEMATOCRIT 27.5 % (32.4-45.2); HEMOGLOBIN 9.2 GM/dL (10.7-15.3); MCHC 33.5 g/dl (32.0-36.0); MEAN CELL VOLUME 83.7 fl (80-96); MEAN PLT VOLUME 10.4 fl (7.5-11.1); PLATELET COUNT 92 K/MM3 (134-434); RBC 3.28 M/mm3 (3.60-5.2); RDW 21.5 % (11.6-15.6); WHITE BLOOD COUNT 6.9 K/mm3 (4.0-10.0)
[2017-05-30] MEDS: MOMETASONE FUROATE 220 MCG/IH INHALER IH SCH (21:11)
[2017-05-30] MEDS: CHLORHEXIDINE GLUCONATE 4% CLEANSER FOR DECOLONIZATION TP SCH (21:11)
[2017-05-30 21:25] LABS: INR 1.13 (0.82-1.09); PROTHROMBIN TIME (PATIENT) 12.8 SEC (9.98-11.88)
[2017-05-31] MEDS ORDERED: NOREPINEPHRINE BITARTRATE 4 MG/4 ML ML IV ONE (00:52)
[2017-05-31] MEDS: HYDROCORTISONE SOD SUCCINATE 100 MG/2 ML VIAL IVPB SCH ×3 (01:26→17:30)
[2017-05-31] MEDS: ALBUTEROL SO4 2.5/IPRATROPIUM 0.5 INH SOL 3 ML VIAL.NEB. NEB SCH ×6 (02:50→21:59)
[2017-05-31] MEDS: GABAPENTIN 100 MG CAPSULE (FP) NGT SCH ×3 (05:33→22:36)
[2017-05-31 06:30] LABS: BASO % 0.1 % (0-2.0); HEMATOCRIT 26.7 % (32.4-45.2); HEMOGLOBIN 9.1 GM/dL (10.7-15.3); LYMPH % 2.2 % (8-40); MEAN CELL VOLUME 82.4 fl (80-96); MEAN PLT VOLUME 9.4 fl (7.5-11.1); MONO % 5.5 % (3.8-10.2); NEUT % 92.2 % (42.8-82.8); PLATELET COUNT 93 K/MM3 (134-434); RBC 3.24 M/mm3 (3.60-5.2); RDW 20.6 % (11.6-15.6); WHITE BLOOD COUNT 6.7 K/mm3 (4.0-10.0)
[2017-05-31] MEDS ORDERED: SODIUM CHLORIDE 250 ML IV PRN (06:40)
--- NOTE | 2017-05-31 06:56 | PN ---
Progress Note, Physician Chief Complaint: No change in overall clinical status Pressors and Meropenem) day 8) - Current Medication List Current Medications: Active Medications Albumin Human (Albumin Human 25%) 12.5 gm IVPB Q30M RUEL Stop: 05/31/17 08:31 Albuterol/Ipratropium (Duoneb -) 1 amp NEB Q4HPO [facility] Last Admin: 05/31/17 06:17 Dose: 1 amp Amino Acids (Prosource No Carb Liquid Pkt) 30 ml PO DAILY [facility] Last Admin: 05/30/17 09:42 Dose: 30 ml Calcitriol (Rocaltrol -) 0.25 mcg PO DAILY [facility] Last Admin: 05/30/17 09:42 Dose: 0.25 mcg Chlorhexidine Gluconate (Hibiclens For Decolonization -) 1 applic TP HS [facility] Last Admin: 05/30/17 21:11 Dose: 1 applic Gabapentin (Neurontin -) 100 mg NGT TID [facility] Last Admin: 05/31/17 05:33 Dose: 100 mg Hydrocortisone Sodium Succinate (Solu-Cortef -) 100 mg IVPB Q8H-IV [facility] Last Admin: 05/31/17 01:26 Dose: 100 mg Norepinephrine Bitartrate 8, (000 mcg/ Dextrose) 500 mls @ 18.75 mls/hr IV TITR RUEL; 5 MCG/MIN PRN Reason: Protocol Last Titration: 05/31/17 05:00 Dose: 3 mcg/min, 11.25 mls/hr Meropenem 500 mg/ Dextrose 100 mls @ 200 mls/hr IVPB BID [facility] Last Admin: 05/30/17 21:11 Dose: 200 mls/hr Dobutamine HCl/Dextrose (Dobutamine 250 Mg/D5w -) 250,000 mcg in 250 mls @ 24.889 mls/hr IV TITR RUEL; 5 MCG/KG/MIN PRN Reason: Protocol Last Admin: 05/30/17 17:21 Dose: 5 mcg/kg/min, 24.889 mls/hr Propofol (Diprivan -) 1,000,000 mcg in 100 mls @ 2.754 mls/hr IVPB TITR RUEL; 5 MCG/KG/MIN PRN Reason: Protocol Last Admin: 05/30/17 12:00 Dose: 15 mcg/kg/min, 8.263 mls/hr Sodium Chloride (Normal Saline -) 250 mls @ 3,000 mls/hr IV PRN PRN PRN Reason: Hypotension during Dialysis Stop: 06/01/17 06:39 Insulin Aspart (Novolog Vial Sliding Scale -) 1 vial SQ ACHS [facility] PRN Reason: Protocol Last Admin: 05/30/17 21:25 Dose: 2 units Midodrine (Proamatine -) 5 mg PO TID-MID [facility] Last Admin: 05/30/17 19:36 Dose: 5 mg Mometasone Furoate (Asmanex 220mcg -) 1 puff IH HS [facility] Last Admin: 05/30/17 21:11 Dose: Not Given Morphine Sulfate (Morphine Sulfate) 2 mg IVPUSH Q6H PRN PRN Reason: PAIN LEVEL 1-5 Last Admin: 05/26/17 18:36 Dose: 2 mg Multivit/Ca Carb/B Cmplx/FA/Prenat (Nephro-Pancho -) 1 tablet PO DAILY [facility] Last Admin: 05/30/17 09:42 Dose: 1 tablet Pantoprazole Sodium (Protonix Iv) 40 mg IVPUSH BID [facility] Last Admin: 05/30/17 21:11 Dose: 40 mg - Objective Vital Signs: Vital Signs Temperature 97.4 F L 05/31/17 02:00 Pulse Rate 88 05/31/17 05:00 Respiratory Rate 16 05/31/17 06:29 Blood Pressure 122/61 05/31/17 05:00 O2 Sat by Pulse Oximetry (%) 100 05/30/17 21:00 Constitutional: Yes: Other (Vented) Cardiovascular: Yes: S1, S2 Respiratory: Yes: WNL, Regular, CTA Bilaterally Gastrointestinal: Yes: Soft, Distention Edema: Yes (gangrene) Labs: CBC, BMP 05/31/17 05:20 INR, PTT INR 1.13 (0.82-1.09) 05/30/17 18:30 Fibrinogen 152.0 mg/dL (238-498) L 05/30/17 18:30 Problem List - Problems (1) Sepsis Code(s): A41.9 - SEPSIS, UNSPECIFIED ORGANISM (2) Anemia Code(s): D64.9 - ANEMIA, UNSPECIFIED (3) ESRD (end stage renal disease) Code(s): N18.6 - END STAGE RENAL DISEASE (4) GI bleed Code(s): K92.2 - GASTROINTESTINAL HEMORRHAGE, UNSPECIFIED Assessment/Plan Microbiology 05/29/17 10:45 Sputum - Endotrachea Suction/Ventilator Gram Stain - Final 05/23/17 08:20 Blood - Central Line Blood Culture - Final NO GROWTH AFTER 5 DAYS INCUBATION 05/23/17 08:20 Blood - Central Line Blood Culture - Final NO GROWTH AFTER 5 DAYS INCUBATION 05/21/17 20:00 Blood - Peripheral Venous Blood Culture - Final NO GROWTH AFTER 5 DAYS INCUBATION 05/21/17 19:56 Blood - Peripheral Venous Blood Culture - Final NO GROWTH AFTER 5 DAYS INCUBATION 05/29/17 10:45 Sputum - Endotrachea Suction/Ventilator Sputum Culture - Preliminary NORMAL RESPIRATORY SAL 05/29/17 10:30 Blood - Peripheral Venous Blood Culture - Preliminary NO GROWTH OBTAINED AFTER 24 HOURS, INCUBATION TO CONTINUE FOR 4 DAYS. Laboratory Tests 05/30/17 05/31/17 05:45 05:20 WBC 6.7 Hgb 9.1 L Hct 26.7 L Plt Count 93 L Creat Clearance w eGFR 24.19 Assessment Sepsis syndrome treated with Meropenem GI bleed ESRD Heart valve replacement LE gangrene Plan Culture negative 8 days broad spectrum antibiotic Will stop antibiotic recognizing poor overall prognosis and no documented infection
[2017-05-31 06:59] LABS: CHLORIDE 94 mmol/L (98-107); POTASSIUM 3.3 mmol/L (3.5-5.1); SODIUM 133 mmol/L (136-145)
[2017-05-31] MEDS ORDERED: ALBUMIN HUMAN 25% 12.5 GM/50 ML VIAL IVPB SCH (07:00)
[2017-05-31] MEDS: INSULIN SLIDING SCALE (NOVOLOG) 1 VIAL SQ SCH ×4 (07:02→23:30)
[2017-05-31 07:04] LABS: ALBUMIN 1.8 g/dl (3.4-5.0); ALK PHOS 107 U/L (45-117); ANION GAP 12 (8-16); BILIRUBIN,TOTAL 1.8 mg/dL (0.2-1.0); BLOOD UREA NITROGEN 28 mg/dL (7-18); CALCIUM 7.5 mg/dL (8.5-10.1); CO2 27 mmol/L (21-32); CREATININE 2.4 mg/dL (0.55-1.02); GLUCOSE,RANDOM 128 mg/dL (74-106); PHOSPHOROUS 3.8 mg/dL (2.5-4.9); SGOT/AST 54 U/L (15-37); SGPT/ALT 25 U/L (12-78); TOT PROT 4.9 g/dl (6.4-8.2)
[2017-05-31 07:20] LABS: INR 1.12 (0.82-1.09); PROTHROMBIN TIME (PATIENT) 12.7 SEC (9.98-11.88)
[2017-05-31 07:23] LABS: ACTIVATED PTT 30.5 SECONDS (26.9-34.4)
[2017-05-31] MEDS: MIDODRINE HCL 5 MG TABLET PO SCH ×3 (10:00→17:33)
--- NOTE | 2017-05-31 10:48 | PN ---
Progress Note (short form) - Note Progress Note: PULMONARY/CCM Pt seen and examined in the ICU. Remains intubated, sedated on levophed and dobutamine gtts. Tolerated HD today with removal of 3L. Last Vital Signs Temp Pulse Resp BP Pulse Ox 98.8 F 98 H 14 101/55 100 05/31/17 07:10 05/31/17 10:33 05/31/17 10:33 05/31/17 10:33 05/30/17 21:00 Intake & Output 05/28/17 05/29/17 05/30/17 05/31/17 23:59 23:59 23:59 23:59 Intake Total 2225.8 2339.6 837.2 859.6 Output Total 0 0 Balance 2225.8 2339.6 837.2 859.6 Weight 93.395 kg 92.079 kg 90.764 kg 93.213 kg Gen: intubated, sedated, +anasarca Heart: RRR Lung: decreased breath sounds at the bases Abd: soft, nontender Ext: + edema CBC, BMP 05/31/17 05:20 05/31/17 05:20 Active Medications Albuterol/Ipratropium (Duoneb -) 1 amp NEB Q4HPO [facility] Last Admin: 05/31/17 09:35 Dose: 1 amp Amino Acids (Prosource No Carb Liquid Pkt) 30 ml PO DAILY [facility] Last Admin: 05/30/17 09:42 Dose: 30 ml Calcitriol (Rocaltrol -) 0.25 mcg PO DAILY [facility] Last Admin: 05/30/17 09:42 Dose: 0.25 mcg Chlorhexidine Gluconate (Hibiclens For Decolonization -) 1 applic TP HS [facility] Last Admin: 05/30/17 21:11 Dose: 1 applic Gabapentin (Neurontin -) 100 mg NGT TID [facility] Last Admin: 05/31/17 05:33 Dose: 100 mg Hydrocortisone Sodium Succinate (Solu-Cortef -) 100 mg IVPB Q8H-IV [facility] Last Admin: 05/31/17 01:26 Dose: 100 mg Norepinephrine Bitartrate 8, (000 mcg/ Dextrose) 500 mls @ 18.75 mls/hr IV TITR [facility]; 5 MCG/MIN PRN Reason: Protocol Last Titration: 05/31/17 05:00 Dose: 3 mcg/min, 11.25 mls/hr Meropenem 500 mg/ Dextrose 100 mls @ 200 mls/hr IVPB BID [facility] Last Admin: 05/30/17 21:11 Dose: 200 mls/hr Dobutamine HCl/Dextrose (Dobutamine 250 Mg/D5w -) 250,000 mcg in 250 mls @ 24.889 mls/hr IV TITR [facility]; 5 MCG/KG/MIN PRN Reason: Protocol Last Admin: 05/30/17 17:21 Dose: 5 mcg/kg/min, 24.889 mls/hr Propofol (Diprivan -) 1,000,000 mcg in 100 mls @ 2.754 mls/hr IVPB TITR [facility]; 5 MCG/KG/MIN PRN Reason: Protocol Last Admin: 05/30/17 12:00 Dose: 15 mcg/kg/min, 8.263 mls/hr Sodium Chloride (Normal Saline -) 250 mls @ 3,000 mls/hr IV PRN PRN PRN Reason: Hypotension during Dialysis Stop: 06/01/17 06:39 Insulin Aspart (Novolog Vial Sliding Scale -) 1 vial SQ ACHS [facility] PRN Reason: Protocol Last Admin: 05/31/17 07:02 Dose: 2 units Midodrine (Proamatine -) 5 mg PO TID-MID [facility] Last Admin: 05/30/17 19:36 Dose: 5 mg Mometasone Furoate (Asmanex 220mcg -) 1 puff IH HS [facility] Last Admin: 05/30/17 21:11 Dose: Not Given Morphine Sulfate (Morphine Sulfate) 2 mg IVPUSH Q6H PRN PRN Reason: PAIN LEVEL 1-5 Last Admin: 05/26/17 18:36 Dose: 2 mg Multivit/Ca Carb/B Cmplx/FA/Prenat (Nephro-Pancho -) 1 tablet PO DAILY [facility] Last Admin: 05/30/17 09:42 Dose: 1 tablet Pantoprazole Sodium (Protonix Iv) 40 mg IVPUSH BID [facility] Last Admin: 05/30/17 21:11 Dose: 40 mg A/P Acute Hypoxic Respiratory Failure Shock - ?Septic vs Cardiogenic GI Bleed +Troponins likely [place]and Ischemia LV Systolic Dysfunction Volume Overload Thrombocytopenia Coagulopathy Gangrene CAD s/p CABG ESRD on HD HTN DM - continue empiric antibiotics - titrate pressors, inotropes to maintain MAP >65 - HD per renal with ultrafiltration - continue stress dose steroids - monitor platelets, coags, fibrinogen level - transfuse as needed - lighten sedation to assess mental status - spontaneous breathing trials as tolerated when mental status improved - restart enteral feeds at lower rate - DVT/GI prophylaxis - continue ICU monitoring critical care time spent in reviewing chart, evaluating patient and formulating plan 35 min
--- NOTE | 2017-05-31 10:49 | PN ---
Progress Note, Physician History of Present Illness: patient seen and examined in ICU. overall condition same. being dialized. all f/u noted. opens eyes - Current Medication List Current Medications: Active Medications Albuterol/Ipratropium (Duoneb -) 1 amp NEB Q4HPO [facility] Last Admin: 05/31/17 09:35 Dose: 1 amp Amino Acids (Prosource No Carb Liquid Pkt) 30 ml PO DAILY [facility] Last Admin: 05/30/17 09:42 Dose: 30 ml Calcitriol (Rocaltrol -) 0.25 mcg PO DAILY [facility] Last Admin: 05/30/17 09:42 Dose: 0.25 mcg Chlorhexidine Gluconate (Hibiclens For Decolonization -) 1 applic TP HS [facility] Last Admin: 05/30/17 21:11 Dose: 1 applic Gabapentin (Neurontin -) 100 mg NGT TID [facility] Last Admin: 05/31/17 05:33 Dose: 100 mg Hydrocortisone Sodium Succinate (Solu-Cortef -) 100 mg IVPB Q8H-IV [facility] Last Admin: 05/31/17 01:26 Dose: 100 mg Norepinephrine Bitartrate 8, (000 mcg/ Dextrose) 500 mls @ 18.75 mls/hr IV TITR [facility]; 5 MCG/MIN PRN Reason: Protocol Last Titration: 05/31/17 05:00 Dose: 3 mcg/min, 11.25 mls/hr Meropenem 500 mg/ Dextrose 100 mls @ 200 mls/hr IVPB BID [facility] Last Admin: 05/30/17 21:11 Dose: 200 mls/hr Dobutamine HCl/Dextrose (Dobutamine 250 Mg/D5w -) 250,000 mcg in 250 mls @ 24.889 mls/hr IV TITR [facility]; 5 MCG/KG/MIN PRN Reason: Protocol Last Admin: 05/30/17 17:21 Dose: 5 mcg/kg/min, 24.889 mls/hr Propofol (Diprivan -) 1,000,000 mcg in 100 mls @ 2.754 mls/hr IVPB TITR [facility]; 5 MCG/KG/MIN PRN Reason: Protocol Last Admin: 05/30/17 12:00 Dose: 15 mcg/kg/min, 8.263 mls/hr Sodium Chloride (Normal Saline -) 250 mls @ 3,000 mls/hr IV PRN PRN PRN Reason: Hypotension during Dialysis Stop: 06/01/17 06:39 Insulin Aspart (Novolog Vial Sliding Scale -) 1 vial SQ ACHS [facility] PRN Reason: Protocol Last Admin: 05/31/17 07:02 Dose: 2 units Midodrine (Proamatine -) 5 mg PO TID-MID [facility] Last Admin: 05/30/17 19:36 Dose: 5 mg Mometasone Furoate (Asmanex 220mcg -) 1 puff IH HS [facility] Last Admin: 05/30/17 21:11 Dose: Not Given Morphine Sulfate (Morphine Sulfate) 2 mg IVPUSH Q6H PRN PRN Reason: PAIN LEVEL 1-5 Last Admin: 05/26/17 18:36 Dose: 2 mg Multivit/Ca Carb/B Cmplx/FA/Prenat (Nephro-Pancho -) 1 tablet PO DAILY [facility] Last Admin: 05/30/17 09:42 Dose: 1 tablet Pantoprazole Sodium (Protonix Iv) 40 mg IVPUSH BID [facility] Last Admin: 05/30/17 21:11 Dose: 40 mg - Objective Vital Signs: Vital Signs Temperature 98.8 F 05/31/17 07:10 Pulse Rate 98 H 05/31/17 10:33 Respiratory Rate 14 05/31/17 10:33 Blood Pressure 101/55 05/31/17 10:33 O2 Sat by Pulse Oximetry (%) 100 05/30/17 21:00 Constitutional: Yes: Other Neck: Yes: Other Cardiovascular: Yes: Regular Rate and Rhythm Respiratory: Yes: Diminished Gastrointestinal: Yes: Soft Wound/Incision: Yes: Other (dry gangrene) Labs: CBC, BMP 05/31/17 05:20 05/31/17 05:20 INR, PTT INR 1.12 (0.82-1.09) 05/31/17 05:20 Fibrinogen 132.0 mg/dL (238-498) L 05/31/17 05:20 Problem List - Problems (1) Respiratory failure Code(s): J96.90 - RESPIRATORY FAILURE, UNSP, UNSP W HYPOXIA OR HYPERCAPNIA (2) Coagulopathy Code(s): D68.9 - COAGULATION DEFECT, UNSPECIFIED (3) GI bleed Code(s): K92.2 - GASTROINTESTINAL HEMORRHAGE, UNSPECIFIED (4) Gangrene Code(s): I96 - GANGRENE, NOT ELSEWHERE CLASSIFIED (5) Hx of CABG Code(s): Z95.1 - PRESENCE OF AORTOCORONARY BYPASS GRAFT Assessment/Plan sepsis- GI bleed respiratory failure recent CABG-bioMVR/TVR esrd--on hemodialysis severe PAD with dry gangrene of both legs thrombocytopenia- hypovolemic shock. meds reviewed Continue present care Antibiotics per i/d Overall condition/and prognosis poor. discussed with ICU Attending today start on feed . will follow cc time 25 min
[2017-05-31] MEDS: AMINO ACIDS/PROTEIN HYDROLYS 30 ML LIQUID.PKT PO SCH (11:47)
[2017-05-31] MEDS: CALCITRIOL 0.25 MCG CAPSULE (FP) PO SCH (11:47)
[2017-05-31] MEDS: PROPOFOL 1,000,000 MCG/100 ML VIAL IVPB SCH (11:47)
[2017-05-31] MEDS: VITAMIN B COMP W-C 1 EA TABLET PO SCH (11:47)
[2017-05-31] MEDS: PANTOPRAZOLE SODIUM 40 MG VIAL IVPUSH SCH ×2 (11:50→22:37)
[2017-05-31] MEDS: MEROPENEM 500 MG in DEXTROSE 5%-WATER - 100 ML IVPB SCH ×2 (11:51→22:36)
--- NOTE | 2017-05-31 12:31 | PN ---
Progress Note, Physician Chief Complaint: Respiratory failure History of Present Illness: 56-year-old female with a history of diabetes, hypertension, end-stage renal disease on hemodialysis, coronary artery disease, status post CABG and tissue MVR systolic heart failure with severe systolic dysfunction admitted with a GI bleed and hypotension, currently intubated on pressors. - Current Medication List Current Medications: Active Medications Albuterol/Ipratropium (Duoneb -) 1 amp NEB Q4HPO [facility] Last Admin: 05/31/17 09:35 Dose: 1 amp Amino Acids (Prosource No Carb Liquid Pkt) 30 ml PO DAILY [facility] Last Admin: 05/31/17 11:47 Dose: 30 ml Calcitriol (Rocaltrol -) 0.25 mcg PO DAILY [facility] Last Admin: 05/31/17 11:47 Dose: 0.25 mcg Chlorhexidine Gluconate (Hibiclens For Decolonization -) 1 applic TP HS [facility] Last Admin: 05/30/17 21:11 Dose: 1 applic Gabapentin (Neurontin -) 100 mg NGT TID [facility] Last Admin: 05/31/17 05:33 Dose: 100 mg Hydrocortisone Sodium Succinate (Solu-Cortef -) 100 mg IVPB Q8H-IV [facility] Last Admin: 05/31/17 11:46 Dose: 100 mg Norepinephrine Bitartrate 8, (000 mcg/ Dextrose) 500 mls @ 18.75 mls/hr IV TITR [facility]; 5 MCG/MIN PRN Reason: Protocol Last Titration: 05/31/17 05:00 Dose: 3 mcg/min, 11.25 mls/hr Meropenem 500 mg/ Dextrose 100 mls @ 200 mls/hr IVPB BID [facility] Last Admin: 05/31/17 11:51 Dose: 200 mls/hr Dobutamine HCl/Dextrose (Dobutamine 250 Mg/D5w -) 250,000 mcg in 250 mls @ 24.889 mls/hr IV TITR [facility]; 5 MCG/KG/MIN PRN Reason: Protocol Last Admin: 05/30/17 17:21 Dose: 5 mcg/kg/min, 24.889 mls/hr Propofol (Diprivan -) 1,000,000 mcg in 100 mls @ 2.754 mls/hr IVPB TITR [facility]; 5 MCG/KG/MIN PRN Reason: Protocol Last Admin: 05/31/17 11:47 Dose: 15 mcg/kg/min, 8.263 mls/hr Sodium Chloride (Normal Saline -) 250 mls @ 3,000 mls/hr IV PRN PRN PRN Reason: Hypotension during Dialysis Stop: 06/01/17 06:39 Insulin Aspart (Novolog Vial Sliding Scale -) 1 vial SQ ACHS [facility] PRN Reason: Protocol Last Admin: 05/31/17 07:02 Dose: 2 units Midodrine (Proamatine -) 5 mg PO TID-MID [facility] Last Admin: 05/30/17 19:36 Dose: 5 mg Mometasone Furoate (Asmanex 220mcg -) 1 puff IH HS [facility] Last Admin: 05/30/17 21:11 Dose: Not Given Morphine Sulfate (Morphine Sulfate) 2 mg IVPUSH Q6H PRN PRN Reason: PAIN LEVEL 1-5 Last Admin: 05/26/17 18:36 Dose: 2 mg Multivit/Ca Carb/B Cmplx/FA/Prenat (Nephro-Pancho -) 1 tablet PO DAILY [facility] Last Admin: 05/31/17 11:47 Dose: 1 tablet Pantoprazole Sodium (Protonix Iv) 40 mg IVPUSH BID [facility] Last Admin: 05/31/17 11:50 Dose: 40 mg - Objective Vital Signs: Vital Signs Temperature 98.8 F 05/31/17 07:10 Pulse Rate 98 H 05/31/17 10:33 Respiratory Rate 14 05/31/17 11:45 Blood Pressure 101/55 05/31/17 10:33 O2 Sat by Pulse Oximetry (%) 100 05/30/17 21:00 Eyes: Yes: Other (The patient is sedated) HENT: Yes: Atraumatic, Normocephalic Neck: Yes: Other (Intubated) Cardiovascular: Yes: Pulse Irregular, S1, S2 Respiratory: Yes: Intubated Gastrointestinal: Yes: Soft, Abdomen, Obese ...Rectal Exam: Yes: Deferred Edema: LLE: 2+, RLE: 2+ Peripheral Pulses: Left Radial: 1+, Right Radial: 1+, Left Doralis Pedis: 1+, Right Dorsalis Pedis: 1+, Left Femoral: 1+, Right Femoral: 1+ Neurological: Yes: Other (Sedated) Labs: CBC, BMP 05/31/17 05:20 05/31/17 05:20 INR, PTT INR 1.12 (0.82-1.09) 05/31/17 05:20 Fibrinogen 132.0 mg/dL (238-498) L 05/31/17 05:20 Assessment/Plan The patient remains intubated on pressors. Tolerated hemodialysis. 3 L removed earlier today. The blood pressure stable. Attempt to start gradually tapering pressors to off as possible. Otherwise continue current regimen. Mild improvement.
[2017-05-31] MEDS ORDERED: PT OWN MED DRAWER 7, Y5N ONE ×2 (14:04→21:40)
--- NOTE | 2017-05-31 16:46 | PN ---
Progress Note, Physician History of Present Illness: Pt seen and examined at bedside. She remains in the ICU. She tolerated HD today. - Current Medication List Current Medications: Active Medications Albuterol/Ipratropium (Duoneb -) 1 amp NEB Q4HPO [facility] Last Admin: 05/31/17 14:20 Dose: 1 amp Amino Acids (Prosource No Carb Liquid Pkt) 30 ml PO DAILY [facility] Last Admin: 05/31/17 11:47 Dose: 30 ml Calcitriol (Rocaltrol -) 0.25 mcg PO DAILY [facility] Last Admin: 05/31/17 11:47 Dose: 0.25 mcg Chlorhexidine Gluconate (Hibiclens For Decolonization -) 1 applic TP HS [facility] Last Admin: 05/30/17 21:11 Dose: 1 applic Gabapentin (Neurontin -) 100 mg NGT TID [facility] Last Admin: 05/31/17 14:06 Dose: 100 mg Hydrocortisone Sodium Succinate (Solu-Cortef -) 100 mg IVPB Q8H-IV [facility] Last Admin: 05/31/17 11:46 Dose: 100 mg Norepinephrine Bitartrate 8, (000 mcg/ Dextrose) 500 mls @ 18.75 mls/hr IV TITR [facility]; 5 MCG/MIN PRN Reason: Protocol Last Titration: 05/31/17 05:00 Dose: 3 mcg/min, 11.25 mls/hr Meropenem 500 mg/ Dextrose 100 mls @ 200 mls/hr IVPB BID [facility] Last Admin: 05/31/17 11:51 Dose: 200 mls/hr Dobutamine HCl/Dextrose (Dobutamine 250 Mg/D5w -) 250,000 mcg in 250 mls @ 24.889 mls/hr IV TITR [facility]; 5 MCG/KG/MIN PRN Reason: Protocol Last Admin: 05/30/17 17:21 Dose: 5 mcg/kg/min, 24.889 mls/hr Propofol (Diprivan -) 1,000,000 mcg in 100 mls @ 2.754 mls/hr IVPB TITR [facility]; 5 MCG/KG/MIN PRN Reason: Protocol Last Admin: 05/31/17 11:47 Dose: 15 mcg/kg/min, 8.263 mls/hr Sodium Chloride (Normal Saline -) 250 mls @ 3,000 mls/hr IV PRN PRN PRN Reason: Hypotension during Dialysis Stop: 06/01/17 06:39 Insulin Aspart (Novolog Vial Sliding Scale -) 1 vial SQ ACHS [facility] PRN Reason: Protocol Last Admin: 05/31/17 07:02 Dose: 2 units Midodrine (Proamatine -) 5 mg PO TID-MID [facility] Last Admin: 05/31/17 14:06 Dose: 5 mg Mometasone Furoate (Asmanex 220mcg -) 1 puff IH HS [facility] Last Admin: 05/30/17 21:11 Dose: Not Given Morphine Sulfate (Morphine Sulfate) 2 mg IVPUSH Q6H PRN PRN Reason: PAIN LEVEL 1-5 Last Admin: 05/26/17 18:36 Dose: 2 mg Multivit/Ca Carb/B Cmplx/FA/Prenat (Nephro-Pancho -) 1 tablet PO DAILY [facility] Last Admin: 05/31/17 11:47 Dose: 1 tablet Pantoprazole Sodium (Protonix Iv) 40 mg IVPUSH BID [facility] Last Admin: 05/31/17 11:50 Dose: 40 mg - Objective Vital Signs: Vital Signs Temperature 97.6 F 05/31/17 12:00 Pulse Rate 92 H 05/31/17 16:00 Respiratory Rate 18 05/31/17 16:00 Blood Pressure 106/54 05/31/17 16:00 O2 Sat by Pulse Oximetry (%) 100 05/30/17 21:00 Constitutional: Yes: Calm Eyes: Yes: Conjunctiva Clear Cardiovascular: Yes: S1, S2 Respiratory: Yes: Mechanically Ventilated Gastrointestinal: Yes: Soft, Abdomen, Obese Genitourinary: Yes: Incontinence Musculoskeletal: Yes: Muscle Weakness Extremities: Yes: Other (right foot gangrene) Edema: Yes Edema: LUE: 1+, RUE: 1+, LLE: 1+, RLE: 1+ Integumentary: Yes: Other (gangrene) Neurological: Yes: Lethargy Labs: CBC, BMP 05/31/17 05:20 05/31/17 05:20 INR, PTT INR 1.12 (0.82-1.09) 05/31/17 05:20 Fibrinogen 132.0 mg/dL (238-498) L 05/31/17 05:20 Problem List - Problems (1) ESRD (end stage renal disease) Code(s): N18.6 - END STAGE RENAL DISEASE (2) CAD (coronary artery disease) Code(s): I25.10 - ATHSCL HEART DISEASE OF [place] CORONARY ARTERY W/O ANG PCTRS (3) Hx of CABG Code(s): Z95.1 - PRESENCE OF AORTOCORONARY BYPASS GRAFT (4) Anemia Code(s): D64.9 - ANEMIA, UNSPECIFIED (5) GI bleed Code(s): K92.2 - GASTROINTESTINAL HEMORRHAGE, UNSPECIFIED Assessment/Plan Current Medications Generic Name Dose Route Start Last Admin Trade Name Freq PRN Reason Stop Dose Admin Albuterol/Ipratropium 1 amp 05/21/17 18:00 05/31/17 14:20 Duoneb - NEB 1 amp Q4HPO [facility] Administration Amino Acids 30 ml 05/26/17 10:00 05/31/17 11:47 Prosource No Carb Liquid Pkt PO 30 ml DAILY [facility] Administration Calcitriol 0.25 mcg 05/23/17 10:45 05/31/17 11:47 Rocaltrol - PO 0.25 mcg DAILY [facility] Administration Chlorhexidine Gluconate 1 applic 05/21/17 22:00 05/30/17 21:11 Hibiclens For Decolonization - TP 1 applic HS [facility] Administration Gabapentin 100 mg 05/26/17 22:00 05/31/17 14:06 Neurontin - NGT 100 mg TID [facility] Administration Hydrocortisone Sodium Succinate 100 mg 05/23/17 18:00 05/31/17 11:46 Solu-Cortef - IVPB 100 mg Q8H-IV [facility] Administration Norepinephrine Bitartrate 8, 500 mls @ 18.75 mls/hr 05/21/17 16:45 05/31/17 05:00 000 mcg/ Dextrose IV 3 mcg/min TITR [facility] 11.25 mls/hr Protocol Titration 5 MCG/MIN Meropenem 500 mg/ Dextrose 100 mls @ 200 mls/hr 05/23/17 08:00 05/31/17 11:51 IVPB 200 mls/hr BID [facility] Administration Dobutamine HCl/Dextrose 250,000 mcg in 250 mls @ 24.889 mls/hr 05/23/17 16:45 05/30/17 17:21 Dobutamine 250 Mg/D5w - IV 5 mcg/kg/min TITR [facility] 24.889 mls/hr Protocol Administration 5 MCG/KG/MIN Propofol 1,000,000 mcg in 100 mls @ 2.754 mls/hr 05/27/17 11:15 05/31/17 11: 47 Diprivan - IVPB 15 mcg/kg/min TITR [facility] 8.263 mls/hr Protocol Administration 5 MCG/KG/MIN Sodium Chloride 250 mls @ 3,000 mls/hr 05/31/17 06:40 Normal Saline - IV 06/01/17 06:39 PRN PRN Hypotension during Dialysis Insulin Aspart 1 vial 05/22/17 22:00 05/31/17 07:02 Novolog Vial Sliding Scale - SQ 2 units ACHS [facility] Administration Protocol Midodrine 5 mg 05/21/17 23:15 05/31/17 14:06 Proamatine - PO 5 mg TID-MID [facility] Administration Mometasone Furoate 1 puff 05/21/17 22:00 05/30/17 21:11 Asmanex 220mcg - IH Not Given HS [facility] Morphine Sulfate 2 mg 05/26/17 15:27 05/26/17 18:36 Morphine Sulfate IVPUSH 2 mg Q6H PRN Administration PAIN LEVEL 1-5 Multivit/Ca Carb/B Cmplx/FA/Prenat 1 tablet 05/22/17 10:00 05/31/17 11:47 Nephro-Pancho - PO 1 tablet DAILY [facility] Administration Pantoprazole Sodium 40 mg 05/25/17 10:00 05/31/17 11:50 Protonix Iv IVPUSH 40 mg BID [facility] Administration Impression 1. ESRD 2. GI bleed likely from hemorrhoids 3. hemorrhoids 4. anemia 5. CAD 6. s/p CABG 7. DM 8. hypotension 9. lactic acidosis 10. volume overload 11. resp failure requiring intubation Plan - pt tolerated HD today - 3 liters were removed - cont to monitor in ICU - will evaluate for HD on Friday - vent support - heme follow up - prognosis guarded - monitor pulse ox - will follow Dr Plummer
[2017-05-31] MEDS: DOBUTAMINE 250 MG/D5W - 250,000 MCG/250 ML INFUS.BAG IV SCH (17:31)
[2017-05-31] MEDS: NOREPINEPHRINE BITARTRATE 8,000 MCG in DEXTROSE 5%-WATER - 492 ML IV SCH (17:31)
[2017-05-31] MEDS: CHLORHEXIDINE GLUCONATE 4% CLEANSER FOR DECOLONIZATION TP SCH (22:36)
--- NOTE | 2017-05-31 23:24 | PN ---
Progress Note (short form) - Note Progress Note: Patient seen and examined arousable off pressors AFVSS Cor: RSR, No murmurs, No gallops Lungs: Clear to P&A Abd: Soft, Normal bowel sounds, anasarca Labs/meds reviewed A/P 56 y/o Acute Hypoxic Respiratory Failure Shock - ?Septic vs Cardiogenic GI Bleed LV Systolic Dysfunction Coagulopathy Gangrene CAD s/p CABG ESRD on HD HTN DM coagulopathy/thrombocytopenia--ongoing sepsis transfuse monodonor platelets/cryo/FFP if actively beeding or platelets < 20-30, 000 or fibrinogen < 100 monitor CBC/Coags
[2017-06-01] MEDS: HYDROCORTISONE SOD SUCCINATE 100 MG/2 ML VIAL IVPB SCH ×3 (01:23→17:30)
[2017-06-01] MEDS: ALBUTEROL SO4 2.5/IPRATROPIUM 0.5 INH SOL 3 ML VIAL.NEB. NEB SCH ×6 (02:09→20:14)
[2017-06-01] MEDS: DOBUTAMINE 250 MG/D5W - 250,000 MCG/250 ML INFUS.BAG IV SCH ×2 (04:31→17:21)
[2017-06-01 06:03] LABS: BASO % 0.1 % (0-2.0); HEMATOCRIT 27.4 % (32.4-45.2); LYMPH % 2.6 % (8-40); MCH 27.3 pg (25.7-33.7); MCHC 32.7 g/dl (32.0-36.0); MEAN CELL VOLUME 83.5 fl (80-96); MEAN PLT VOLUME 9.5 fl (7.5-11.1); NEUT % 92.3 % (42.8-82.8); PLATELET COUNT 88 K/MM3 (134-434); RBC 3.28 M/mm3 (3.60-5.2); RDW 20.2 % (11.6-15.6); WHITE BLOOD COUNT 6.8 K/mm3 (4.0-10.0)
[2017-06-01 06:32] LABS: CHLORIDE 98 mmol/L (98-107); POTASSIUM 3.3 mmol/L (3.5-5.1); SODIUM 135 mmol/L (136-145)
[2017-06-01] MEDS: MOMETASONE FUROATE 220 MCG/IH INHALER IH SCH ×3 (06:37→21:47)
[2017-06-01] MEDS: GABAPENTIN 100 MG CAPSULE (FP) NGT SCH ×4 (06:38→21:48)
[2017-06-01] MEDS: INSULIN SLIDING SCALE (NOVOLOG) 1 VIAL SQ SCH ×5 (06:39→22:50)
[2017-06-01 06:40] LABS: ALBUMIN 1.8 g/dl (3.4-5.0); ALK PHOS 90 U/L (45-117); ANION GAP 9 (8-16); BILIRUBIN,TOTAL 1.6 mg/dL (0.2-1.0); BLOOD UREA NITROGEN 26 mg/dL (7-18); CALCIUM 7.6 mg/dL (8.5-10.1); CO2 28 mmol/L (21-32); GLUCOSE,RANDOM 95 mg/dL (74-106); MAGNESIUM 1.7 mg/dL (1.8-2.4); PHOSPHOROUS 3.6 mg/dL (2.5-4.9); SGOT/AST 62 U/L (15-37); SGPT/ALT 32 U/L (12-78); TOT PROT 4.9 g/dl (6.4-8.2)
[2017-06-01] MEDS: PROPOFOL 1,000,000 MCG/100 ML VIAL IVPB SCH (06:43)
[2017-06-01] MEDS ORDERED: PT OWN MED DRAWER 7, Y5N ONE (08:08)
[2017-06-01 09:13] LABS: INR 1.11 (0.82-1.09); PROTHROMBIN TIME (PATIENT) 12.5 SEC (9.98-11.88)
[2017-06-01 09:15] LABS: ACTIVATED PTT 29.2 SECONDS (26.9-34.4)
--- NOTE | 2017-06-01 09:18 | PN ---
Progress Note (short form) - Note Progress Note: pt seen/ examined in icu. tolerated hd yesterday all f/u noted/ appreciated remains vent dependent arousable Vital Signs Temp 98.2 F 06/01/17 05:52 Pulse 91 H 05/31/17 22:00 Resp 14 06/01/17 07:39 BP 112/56 06/01/17 05:52 Pulse Ox 99 05/31/17 21:00 Intake & Output 05/31/17 05/31/17 06/01/17 11:59 23:59 11:59 Intake Total 859.6 510.3 447 Output Total 0 Balance 859.6 510.3 447 Weight 205 lb 8 oz 203 lb 3.2 oz Intake: IV 729.6 410.3 347 DIPRIVAN - 1,000,000 mcg 96 84.8 135 In 100 ml @ 5 MCG/KG/MIN 2.754 mls/hr IVPB TITR [facility] Rx#:[id number] DOBUTAMINE 250 MG/D5W - 318 212 212 250,000 mcg In 250 ml @ 5 MCG/KG/MIN 24.889 mls/hr IV TITR [facility] Rx#: [id number] Levophed - 8,000 Mcg In 315.6 113.5 D5w - 492 ml @ 5 MCG/MIN 18.75 mls/hr IV TITR [facility] Rx#:[id number] IVPB 100 100 100 Tube Irrigant 30 Output: Urine 0 Void 0 Other: Voiding Method Diaper Diaper Diaper Bowel Movement No Yes Yes # Bowel Movements 1 Weight Measurement Method [facility] Active Medications Albuterol/Ipratropium (Duoneb -) 1 amp NEB Q4HPO [facility] Last Admin: 06/01/17 06:54 Dose: 1 amp Amino Acids (Prosource No Carb Liquid Pkt) 30 ml PO DAILY [facility] Last Admin: 05/31/17 11:47 Dose: 30 ml Calcitriol (Rocaltrol -) 0.25 mcg PO DAILY [facility] Last Admin: 05/31/17 11:47 Dose: 0.25 mcg Chlorhexidine Gluconate (Hibiclens For Decolonization -) 1 applic TP HS [facility] Last Admin: 05/31/17 22:36 Dose: 1 applic Gabapentin (Neurontin -) 100 mg NGT TID [facility] Last Admin: 06/01/17 06:42 Dose: 100 mg Hydrocortisone Sodium Succinate (Solu-Cortef -) 100 mg IVPB Q8H-IV [facility] Last Admin: 06/01/17 01:23 Dose: 100 mg Norepinephrine Bitartrate 8, (000 mcg/ Dextrose) 500 mls @ 18.75 mls/hr IV TITR [facility]; 5 MCG/MIN PRN Reason: Protocol Last Admin: 05/31/17 17:31 Dose: Not Given Meropenem 500 mg/ Dextrose 100 mls @ 200 mls/hr IVPB BID [facility] Last Admin: 05/31/17 22:36 Dose: 200 mls/hr Dobutamine HCl/Dextrose (Dobutamine 250 Mg/D5w -) 250,000 mcg in 250 mls @ 24.889 mls/hr IV TITR [facility]; 5 MCG/KG/MIN PRN Reason: Protocol Last Admin: 06/01/17 04:31 Dose: 5 mcg/kg/min, 24.889 mls/hr Propofol (Diprivan -) 1,000,000 mcg in 100 mls @ 2.754 mls/hr IVPB TITR [facility]; 5 MCG/KG/MIN PRN Reason: Protocol Last Admin: 06/01/17 06:43 Dose: 20 mcg/kg/min, 11.017 mls/hr Insulin Aspart (Novolog Vial Sliding Scale -) 1 vial SQ ACHS [facility] PRN Reason: Protocol Last Admin: 06/01/17 06:42 Dose: Not Given Midodrine (Proamatine -) 5 mg PO TID-MID [facility] Last Admin: 05/31/17 17:33 Dose: 5 mg Mometasone Furoate (Asmanex 220mcg -) 1 puff IH HS [facility] Last Admin: 06/01/17 06:41 Dose: Not Given Morphine Sulfate (Morphine Sulfate) 2 mg IVPUSH Q6H PRN PRN Reason: PAIN LEVEL 1-5 Last Admin: 05/26/17 18:36 Dose: 2 mg Multivit/Ca Carb/B Cmplx/FA/Prenat (Nephro-Pancho -) 1 tablet PO DAILY [facility] Last Admin: 05/31/17 11:47 Dose: 1 tablet Pantoprazole Sodium (Protonix Iv) 40 mg IVPUSH BID [facility] Last Admin: 05/31/17 22:37 Dose: 40 mg CBC, BMP 06/01/17 05:40 06/01/17 05:40 cxr -- no change Microbiology 05/29/17 10:45 Gram Stain - Final Sputum - Endotrachea Suction/Ventilator Sputum Culture - Preliminary Pending Organism 05/29/17 10:30 Blood Culture - Preliminary Blood - Peripheral Venous NO GROWTH OBTAINED AFTER 48 HOURS, INCUBATION TO CONTINUE FOR 3 DAYS. Physical Exam Constitutional: Yes: Other/ orally intubated Neck: Yes: Other-- central line/ ngt + Cardiovascular: Yes: Regular Rate and Rhythm Respiratory: Yes: Diminished Gastrointestinal: Yes: Soft Wound/Incision: Yes: Other (dry gangrene) Assessment/Plan sepsis- GI bleed respiratory failure recent CABG-bioMVR/TVR esrd--on hemodialysis severe PAD with dry gangrene of both legs thrombocytopenia- hypovolemic shock. meds reviewed Continue present care Antibiotics per i/d Overall condition/and prognosis poor. discussed with ICU Attending again today-- Dr. Vargas. started on feed . transfuse prn. monitor bgm. will follow. cc time 25 min. Problem List - Problems (1) Respiratory failure Code(s): J96.90 - RESPIRATORY FAILURE, UNSP, UNSP W HYPOXIA OR HYPERCAPNIA (2) Coagulopathy Code(s): D68.9 - COAGULATION DEFECT, UNSPECIFIED (3) GI bleed Code(s): K92.2 - GASTROINTESTINAL HEMORRHAGE, UNSPECIFIED (4) Gangrene Code(s): I96 - GANGRENE, NOT ELSEWHERE CLASSIFIED (5) Hx of CABG Code(s): Z95.1 - PRESENCE OF AORTOCORONARY BYPASS GRAFT
--- NOTE | 2017-06-01 09:30 | PN ---
Progress Note (short form) - Note Progress Note: remains intubated opens her eyes pressors being tapered Vital Signs Period Temp Pulse Resp BP Sys/Ceron Pulse Ox Last 24 Hr 97.2 F-98.2 F 88-99 14-26 96-126/48-63 99-100 cor-rrr lungs decreased bs at bases abd soft,nt ext dressings intact- dry gangrene of the feet CBC, BMP 06/01/17 05:40 06/01/17 05:40 Microbiology 05/29/17 10:45 Sputum - Endotrachea Suction/Ventilator Gram Stain - Final 05/29/17 10:45 Sputum - Endotrachea Suction/Ventilator Sputum Culture - Preliminary Pending Organism 05/29/17 10:30 Blood - Peripheral Venous Blood Culture - Preliminary NO GROWTH OBTAINED AFTER 48 HOURS, INCUBATION TO CONTINUE FOR 3 DAYS. 05/23/17 08:20 Blood - Central Line Blood Culture - Final NO GROWTH AFTER 5 DAYS INCUBATION 05/23/17 08:20 Blood - Central Line Blood Culture - Final NO GROWTH AFTER 5 DAYS INCUBATION 05/21/17 20:00 Blood - Peripheral Venous Blood Culture - Final NO GROWTH AFTER 5 DAYS INCUBATION 05/21/17 19:56 Blood - Peripheral Venous Blood Culture - Final NO GROWTH AFTER 5 DAYS INCUBATIOn a/p sepsis- antibiotics d/sheyla yesterday, will observe GI bleed respiratory failure recent CABG-bioMVR/TVR esrd/hd severe PAD with dry gangrene of both legs overall prognosis is poor Problem List - Problems (1) Sepsis Code(s): A41.9 - SEPSIS, UNSPECIFIED ORGANISM (2) GI bleed Code(s): K92.2 - GASTROINTESTINAL HEMORRHAGE, UNSPECIFIED (3) Respiratory failure Code(s): J96.90 - RESPIRATORY FAILURE, UNSP, UNSP W HYPOXIA OR HYPERCAPNIA (4) Gangrene Code(s): I96 - GANGRENE, NOT ELSEWHERE CLASSIFIED (5) H/O heart valve replacement with bioprosthetic valve Code(s): Z95.3 - PRESENCE OF XENOGENIC HEART VALVE (6) ESRD (end stage renal disease) Code(s): N18.6 - END STAGE RENAL DISEASE
--- NOTE | 2017-06-01 09:30 | PN ---
Progress Note (short form) - Note Progress Note: remains intubated opens her eyes pressors being tapered Vital Signs Period Temp Pulse Resp BP Sys/Ceron Pulse Ox Last 24 Hr 97.2 F-98.2 F 88-99 14-26 96-126/48-63 99-100 cor-rrr lungs decreased bs at bases abd soft,nt ext dressings intact- dry gangrene of the feet CBC, BMP 06/01/17 05:40 06/01/17 05:40 Microbiology 05/29/17 10:45 Sputum - Endotrachea Suction/Ventilator Gram Stain - Final 05/29/17 10:45 Sputum - Endotrachea Suction/Ventilator Sputum Culture - Preliminary Pending Organism 05/29/17 10:30 Blood - Peripheral Venous Blood Culture - Preliminary NO GROWTH OBTAINED AFTER 48 HOURS, INCUBATION TO CONTINUE FOR 3 DAYS. 05/23/17 08:20 Blood - Central Line Blood Culture - Final NO GROWTH AFTER 5 DAYS INCUBATION 05/23/17 08:20 Blood - Central Line Blood Culture - Final NO GROWTH AFTER 5 DAYS INCUBATION 05/21/17 20:00 Blood - Peripheral Venous Blood Culture - Final NO GROWTH AFTER 5 DAYS INCUBATION 05/21/17 19:56 Blood - Peripheral Venous Blood Culture - Final NO GROWTH AFTER 5 DAYS INCUBATION a/p respiratory failure esrd/hd antibiotics stopped yesterday observe off antiibotics a/p sepsis- unspecified GI bleed respiratory failure recent CABG-bioMVR/TVR esrd/hd severe PAD with dry gangrene of both legs thrombocytopenia- most likely secondary to sepsis continue meropenem day #7 vancomycin given yesterday f/u cultures-negative to date overall prognosis is poor vanco level in am Problem List - Problems (1) Sepsis Code(s): A41.9 - SEPSIS, UNSPECIFIED ORGANISM (2) GI bleed Code(s): K92.2 - GASTROINTESTINAL HEMORRHAGE, UNSPECIFIED (3) Respiratory failure Code(s): J96.90 - RESPIRATORY FAILURE, UNSP, UNSP W HYPOXIA OR HYPERCAPNIA (4) Gangrene Code(s): I96 - GANGRENE, NOT ELSEWHERE CLASSIFIED (5) H/O heart valve replacement with bioprosthetic valve Code(s): Z95.3 - PRESENCE OF XENOGENIC HEART VALVE (6) ESRD (end stage renal disease) Code(s): N18.6 - END STAGE RENAL DISEASE
--- NOTE | 2017-06-01 10:55 | PN ---
Progress Note (short form) - Note Progress Note: PULMONARY/CCM Pt seen and examined in the ICU. Remains intubated, sedated. Hemodynamics improving, now off levophed and dobutamine gtts. Vented on 60% FiO2. Last Vital Signs Temp Pulse Resp BP Pulse Ox 98.2 F 91 H 14 112/56 99 06/01/17 05:52 05/31/17 22:00 06/01/17 07:39 06/01/17 05:52 05/31/17 21:00 Intake & Output 05/29/17 05/30/17 05/31/17 06/01/17 23:59 23:59 23:59 23:59 Intake Total 2339.6 837.2 1369.9 447 Output Total 0 Balance 2339.6 837.2 1369.9 447 Weight 92.079 kg 90.764 kg 93.213 kg 92.17 kg Gen: intubated, sedated, +anasarca Heart: RRR Lung: decreased breath sounds at the bases Abd: soft, nontender Ext: + edema CBC, BMP 06/01/17 05:40 06/01/17 05:40 Active Medications Albuterol/Ipratropium (Duoneb -) 1 amp NEB Q4HPO [facility] Last Admin: 06/01/17 06:54 Dose: 1 amp Amino Acids (Prosource No Carb Liquid Pkt) 30 ml PO DAILY [facility] Last Admin: 05/31/17 11:47 Dose: 30 ml Calcitriol (Rocaltrol -) 0.25 mcg PO DAILY [facility] Last Admin: 05/31/17 11:47 Dose: 0.25 mcg Chlorhexidine Gluconate (Hibiclens For Decolonization -) 1 applic TP HS [facility] Last Admin: 05/31/17 22:36 Dose: 1 applic Gabapentin (Neurontin -) 100 mg NGT TID [facility] Last Admin: 06/01/17 06:42 Dose: 100 mg Hydrocortisone Sodium Succinate (Solu-Cortef -) 100 mg IVPB Q8H-IV [facility] Last Admin: 06/01/17 01:23 Dose: 100 mg Norepinephrine Bitartrate 8, (000 mcg/ Dextrose) 500 mls @ 18.75 mls/hr IV TITR [facility]; 5 MCG/MIN PRN Reason: Protocol Last Admin: 05/31/17 17:31 Dose: Not Given Meropenem 500 mg/ Dextrose 100 mls @ 200 mls/hr IVPB BID [facility] Last Admin: 05/31/17 22:36 Dose: 200 mls/hr Dobutamine HCl/Dextrose (Dobutamine 250 Mg/D5w -) 250,000 mcg in 250 mls @ 24.889 mls/hr IV TITR [facility]; 5 MCG/KG/MIN PRN Reason: Protocol Last Admin: 06/01/17 04:31 Dose: 5 mcg/kg/min, 24.889 mls/hr Propofol (Diprivan -) 1,000,000 mcg in 100 mls @ 2.754 mls/hr IVPB TITR [facility]; 5 MCG/KG/MIN PRN Reason: Protocol Last Admin: 06/01/17 06:43 Dose: 20 mcg/kg/min, 11.017 mls/hr Insulin Aspart (Novolog Vial Sliding Scale -) 1 vial SQ ACHS [facility] PRN Reason: Protocol Last Admin: 06/01/17 06:42 Dose: Not Given Midodrine (Proamatine -) 5 mg PO TID-MID [facility] Last Admin: 05/31/17 17:33 Dose: 5 mg Mometasone Furoate (Asmanex 220mcg -) 1 puff IH HS [facility] Last Admin: 06/01/17 06:41 Dose: Not Given Morphine Sulfate (Morphine Sulfate) 2 mg IVPUSH Q6H PRN PRN Reason: PAIN LEVEL 1-5 Last Admin: 05/26/17 18:36 Dose: 2 mg Multivit/Ca Carb/B Cmplx/FA/Prenat (Nephro-Pancho -) 1 tablet PO DAILY [facility] Last Admin: 05/31/17 11:47 Dose: 1 tablet Pantoprazole Sodium (Protonix Iv) 40 mg IVPUSH BID [facility] Last Admin: 05/31/17 22:37 Dose: 40 mg A/P Acute Hypoxic Respiratory Failure Shock - ?Septic vs Cardiogenic GI Bleed +Troponins likely Demand Ischemia LV Systolic Dysfunction Volume Overload Thrombocytopenia Coagulopathy Gangrene CAD s/p CABG ESRD on HD HTN DM - continue empiric antibiotics - monitoring off pressors, inotropes, maintain MAP >65 - HD per renal with ultrafiltration - taper steroids - monitor platelets, coags, fibrinogen level - transfuse as needed - hold sedation to assess mental status - spontaneous breathing trials as tolerated when mental status improved - can wean more aggressively now that hemodynamics and volume status are improving - enteral feeds - DVT/GI prophylaxis - continue ICU monitoring critical care time spent in reviewing chart, evaluating patient and formulating plan 35 min
[2017-06-01] MEDS: MEROPENEM 500 MG in DEXTROSE 5%-WATER - 100 ML IVPB SCH ×2 (10:57→21:47)
[2017-06-01] MEDS: MIDODRINE HCL 5 MG TABLET PO SCH ×3 (10:57→17:31)
[2017-06-01] MEDS: VITAMIN B COMP W-C 1 EA TABLET PO SCH (10:58)
[2017-06-01] MEDS: PANTOPRAZOLE SODIUM 40 MG VIAL IVPUSH SCH ×2 (10:58→21:49)
[2017-06-01] MEDS: CALCITRIOL 0.25 MCG CAPSULE (FP) PO SCH (10:58)
[2017-06-01] MEDS: AMINO ACIDS/PROTEIN HYDROLYS 30 ML LIQUID.PKT PO SCH (10:58)
--- NOTE | 2017-06-01 16:40 | PN ---
Progress Note, Physician History of Present Illness: Pt seen and examined at bedside. She remains in the ICU. She remains vented. A- line was removed. - Current Medication List Current Medications: Active Medications Albuterol/Ipratropium (Duoneb -) 1 amp NEB Q4HPO [facility] Last Admin: 06/01/17 14:15 Dose: 1 amp Amino Acids (Prosource No Carb Liquid Pkt) 30 ml PO DAILY [facility] Last Admin: 06/01/17 10:58 Dose: 30 ml Calcitriol (Rocaltrol -) 0.25 mcg PO DAILY [facility] Last Admin: 06/01/17 10:58 Dose: 0.25 mcg Chlorhexidine Gluconate (Hibiclens For Decolonization -) 1 applic TP HS [facility] Last Admin: 05/31/17 22:36 Dose: 1 applic Gabapentin (Neurontin -) 100 mg NGT TID [facility] Last Admin: 06/01/17 13:27 Dose: 100 mg Hydrocortisone Sodium Succinate (Solu-Cortef -) 100 mg IVPB Q8H-IV [facility] Last Admin: 06/01/17 10:57 Dose: 100 mg Norepinephrine Bitartrate 8, (000 mcg/ Dextrose) 500 mls @ 18.75 mls/hr IV TITR [facility]; 5 MCG/MIN PRN Reason: Protocol Last Admin: 05/31/17 17:31 Dose: Not Given Meropenem 500 mg/ Dextrose 100 mls @ 200 mls/hr IVPB BID [facility] Last Admin: 06/01/17 10:57 Dose: 200 mls/hr Dobutamine HCl/Dextrose (Dobutamine 250 Mg/D5w -) 250,000 mcg in 250 mls @ 24.889 mls/hr IV TITR [facility]; 5 MCG/KG/MIN PRN Reason: Protocol Last Admin: 06/01/17 04:31 Dose: 5 mcg/kg/min, 24.889 mls/hr Propofol (Diprivan -) 1,000,000 mcg in 100 mls @ 2.754 mls/hr IVPB TITR [facility]; 5 MCG/KG/MIN PRN Reason: Protocol Last Admin: 06/01/17 06:43 Dose: 20 mcg/kg/min, 11.017 mls/hr Insulin Aspart (Novolog Vial Sliding Scale -) 1 vial SQ ACHS [facility] PRN Reason: Protocol Last Admin: 06/01/17 12:56 Dose: Not Given Midodrine (Proamatine -) 5 mg PO TID-MID [facility] Last Admin: 06/01/17 13:25 Dose: 5 mg Mometasone Furoate (Asmanex 220mcg -) 1 puff IH HS [facility] Last Admin: 06/01/17 06:41 Dose: Not Given Morphine Sulfate (Morphine Sulfate) 2 mg IVPUSH Q6H PRN PRN Reason: PAIN LEVEL 1-5 Last Admin: 05/26/17 18:36 Dose: 2 mg Multivit/Ca Carb/B Cmplx/FA/Prenat (Nephro-Pancho -) 1 tablet PO DAILY [facility] Last Admin: 06/01/17 10:58 Dose: 1 tablet Pantoprazole Sodium (Protonix Iv) 40 mg IVPUSH BID [facility] Last Admin: 06/01/17 10:58 Dose: 40 mg - Objective Vital Signs: Vital Signs Temperature 98.2 F 06/01/17 05:52 Pulse Rate 91 H 05/31/17 22:00 Respiratory Rate 24 06/01/17 14:35 Blood Pressure 112/56 06/01/17 05:52 O2 Sat by Pulse Oximetry (%) 100 06/01/17 08:00 Constitutional: Yes: Calm Eyes: Yes: Conjunctiva Clear Cardiovascular: Yes: S1, S2 Respiratory: Yes: Mechanically Ventilated Gastrointestinal: Yes: Soft Genitourinary: Yes: Incontinence Musculoskeletal: Yes: Muscle Weakness Edema: Yes Edema: LUE: 1+, RUE: 1+ Neurological: Yes: Lethargy Labs: CBC, BMP 06/01/17 05:40 06/01/17 05:40 INR, PTT INR 1.11 (0.82-1.09) 06/01/17 05:40 Fibrinogen 134.0 mg/dL (238-498) L 06/01/17 05:40 - ....Imaging Chest X-ray: Report Reviewed Problem List - Problems (1) ESRD (end stage renal disease) Code(s): N18.6 - END STAGE RENAL DISEASE (2) CAD (coronary artery disease) Code(s): I25.10 - ATHSCL HEART DISEASE OF [place] CORONARY ARTERY W/O ANG PCTRS (3) Hx of CABG Code(s): Z95.1 - PRESENCE OF AORTOCORONARY BYPASS GRAFT (4) Anemia Code(s): D64.9 - ANEMIA, UNSPECIFIED (5) GI bleed Code(s): K92.2 - GASTROINTESTINAL HEMORRHAGE, UNSPECIFIED Assessment/Plan Current Medications Generic Name Dose Route Start Last Admin Trade Name Freq PRN Reason Stop Dose Admin Albuterol/Ipratropium 1 amp 05/21/17 18:00 06/01/17 14:15 Duoneb - NEB 1 amp Q4HPO [facility] Administration Amino Acids 30 ml 05/26/17 10:00 06/01/17 10:58 Prosource No Carb Liquid Pkt PO 30 ml DAILY [facility] Administration Calcitriol 0.25 mcg 05/23/17 10:45 06/01/17 10:58 Rocaltrol - PO 0.25 mcg DAILY [facility] Administration Chlorhexidine Gluconate 1 applic 05/21/17 22:00 05/31/17 22:36 Hibiclens For Decolonization - TP 1 applic HS [facility] Administration Gabapentin 100 mg 05/26/17 22:00 06/01/17 13:27 Neurontin - NGT 100 mg TID [facility] Administration Hydrocortisone Sodium Succinate 100 mg 05/23/17 18:00 06/01/17 10:57 Solu-Cortef - IVPB 100 mg Q8H-IV [facility] Administration Norepinephrine Bitartrate 8, 500 mls @ 18.75 mls/hr 05/21/17 16:45 05/31/17 17:31 000 mcg/ Dextrose IV Not Given TITR [facility] Protocol 5 MCG/MIN Meropenem 500 mg/ Dextrose 100 mls @ 200 mls/hr 05/23/17 08:00 06/01/17 10:57 IVPB 200 mls/hr BID [facility] Administration Dobutamine HCl/Dextrose 250,000 mcg in 250 mls @ 24.889 mls/hr 05/23/17 16:45 06/01/17 04:31 Dobutamine 250 Mg/D5w - IV 5 mcg/kg/min TITR [facility] 24.889 mls/hr Protocol Administration 5 MCG/KG/MIN Propofol 1,000,000 mcg in 100 mls @ 2.754 mls/hr 05/27/17 11:15 06/01/17 06: 43 Diprivan - IVPB 20 mcg/kg/min TITR [facility] 11.017 mls/hr Protocol Administration 5 MCG/KG/MIN Insulin Aspart 1 vial 05/22/17 22:00 06/01/17 12:56 Novolog Vial Sliding Scale - SQ Not Given ACHS [facility] Protocol Midodrine 5 mg 05/21/17 23:15 06/01/17 13:25 Proamatine - PO 5 mg TID-MID [facility] Administration Mometasone Furoate 1 puff 05/21/17 22:00 06/01/17 06:41 Asmanex 220mcg - IH Not Given HS [facility] Morphine Sulfate 2 mg 05/26/17 15:27 05/26/17 18:36 Morphine Sulfate IVPUSH 2 mg Q6H PRN Administration PAIN LEVEL 1-5 Multivit/Ca Carb/B Cmplx/FA/Prenat 1 tablet 05/22/17 10:00 06/01/17 10:58 Nephro-Pancho - PO 1 tablet DAILY [facility] Administration Pantoprazole Sodium 40 mg 05/25/17 10:00 06/01/17 10:58 Protonix Iv IVPUSH 40 mg BID [facility] Administration Impression 1. ESRD 2. GI bleed likely from hemorrhoids 3. hemorrhoids 4. anemia 5. CAD 6. s/p CABG 7. DM 8. hypotension 9. lactic acidosis 10. volume overload 11. resp failure requiring intubation Plan - will arrange for HD in am - repeat cxr tomorrow - monitor blood pressure, there was a discrepancy between the a-line and the cuff - vent support - heme follow up - prognosis guarded - monitor pulse ox - will follow Dr Plummer
[2017-06-01] MEDS: NOREPINEPHRINE BITARTRATE 8,000 MCG in DEXTROSE 5%-WATER - 492 ML IV SCH (17:23)
[2017-06-01] MEDS: CHLORHEXIDINE GLUCONATE 4% CLEANSER FOR DECOLONIZATION TP SCH (21:47)
[2017-06-02] MEDS: ALBUTEROL SO4 2.5/IPRATROPIUM 0.5 INH SOL 3 ML VIAL.NEB. NEB SCH ×6 (02:39→22:16)
[2017-06-02] MEDS: PROPOFOL 1,000,000 MCG/100 ML VIAL IVPB SCH ×3 (03:15→17:35)
[2017-06-02] MEDS: HYDROCORTISONE SOD SUCCINATE 100 MG/2 ML VIAL IVPB SCH ×3 (03:15→17:35)
[2017-06-02] MEDS: GABAPENTIN 100 MG CAPSULE (FP) NGT SCH ×3 (06:39→21:34)
[2017-06-02] MEDS: INSULIN SLIDING SCALE (NOVOLOG) 1 VIAL SQ SCH ×4 (06:55→22:57)
--- NOTE | 2017-06-02 08:20 | PN ---
Progress Note, Physician Chief Complaint: ID Off antibiotic Meropenem 7 days BP systolic 90s Intubated - Current Medication List Current Medications: Active Medications Albumin Human (Albumin Human 25%) 12.5 gm IVPB Q30M [facility] Albuterol/Ipratropium (Duoneb -) 1 amp NEB Q4HPO [facility] Last Admin: 06/02/17 06:34 Dose: 1 amp Amino Acids (Prosource No Carb Liquid Pkt) 30 ml PO DAILY [facility] Last Admin: 06/01/17 10:58 Dose: 30 ml Calcitriol (Rocaltrol -) 0.25 mcg PO DAILY [facility] Last Admin: 06/01/17 10:58 Dose: 0.25 mcg Chlorhexidine Gluconate (Hibiclens For Decolonization -) 1 applic TP HS [facility] Last Admin: 06/01/17 21:47 Dose: 1 applic Gabapentin (Neurontin -) 100 mg NGT TID [facility] Last Admin: 06/02/17 06:39 Dose: 100 mg Hydrocortisone Sodium Succinate (Solu-Cortef -) 100 mg IVPB Q8H-IV [facility] Last Admin: 06/02/17 03:15 Dose: 100 mg Norepinephrine Bitartrate 8, (000 mcg/ Dextrose) 500 mls @ 18.75 mls/hr IV TITR [facility]; 5 MCG/MIN PRN Reason: Protocol Last Admin: 06/01/17 17:23 Dose: Not Given Meropenem 500 mg/ Dextrose 100 mls @ 200 mls/hr IVPB BID [facility] Last Admin: 06/01/17 21:47 Dose: 200 mls/hr Dobutamine HCl/Dextrose (Dobutamine 250 Mg/D5w -) 250,000 mcg in 250 mls @ 24.889 mls/hr IV TITR [facility]; 5 MCG/KG/MIN PRN Reason: Protocol Last Admin: 06/01/17 17:21 Dose: Not Given Propofol (Diprivan -) 1,000,000 mcg in 100 mls @ 2.754 mls/hr IVPB TITR [facility]; 5 MCG/KG/MIN PRN Reason: Protocol Last Admin: 06/02/17 03:15 Dose: 20 mcg/kg/min, 11.017 mls/hr Sodium Chloride (Normal Saline -) 250 mls @ 3,000 mls/hr IV PRN PRN PRN Reason: Hypotension during Dialysis Stop: 06/02/17 16:41 Insulin Aspart (Novolog Vial Sliding Scale -) 1 vial SQ ACHS [facility] PRN Reason: Protocol Last Admin: 06/02/17 06:55 Dose: Not Given Midodrine (Proamatine -) 5 mg PO TID-MID [facility] Last Admin: 06/01/17 17:31 Dose: 5 mg Mometasone Furoate (Asmanex 220mcg -) 1 puff IH HS [facility] Last Admin: 06/01/17 21:47 Dose: Not Given Morphine Sulfate (Morphine Sulfate) 2 mg IVPUSH Q6H PRN PRN Reason: PAIN LEVEL 1-5 Last Admin: 05/26/17 18:36 Dose: 2 mg Multivit/Ca Carb/B Cmplx/FA/Prenat (Nephro-Pancho -) 1 tablet PO DAILY [facility] Last Admin: 06/01/17 10:58 Dose: 1 tablet Pantoprazole Sodium (Protonix Iv) 40 mg IVPUSH BID [facility] Last Admin: 06/01/17 21:49 Dose: 40 mg - Objective Vital Signs: Vital Signs Temperature 98 F 06/01/17 21:00 Pulse Rate 84 06/02/17 05:00 Respiratory Rate 14 06/02/17 05:34 Blood Pressure 67/32 06/02/17 05:00 O2 Sat by Pulse Oximetry (%) 100 06/01/17 08:00 Constitutional: Yes: Other (INtubated) Cardiovascular: Yes: S1, S2 Respiratory: Yes: WNL, Regular, CTA Bilaterally Gastrointestinal: Yes: Soft Extremities: Yes: Other (Dressing taken down with gangrene to both LE Edema of both limbs) Labs: CBC, BMP 06/01/17 05:40 06/01/17 05:40 INR, PTT INR 1.11 (0.82-1.09) 06/01/17 05:40 Fibrinogen 134.0 mg/dL (238-498) L 06/01/17 05:40 Problem List - Problems (1) Sepsis Code(s): A41.9 - SEPSIS, UNSPECIFIED ORGANISM (2) Anemia Code(s): D64.9 - ANEMIA, UNSPECIFIED (3) ESRD (end stage renal disease) Code(s): N18.6 - END STAGE RENAL DISEASE (4) GI bleed Code(s): K92.2 - GASTROINTESTINAL HEMORRHAGE, UNSPECIFIED Assessment/Plan Microbiology 05/29/17 10:45 Sputum - Endotrachea Suction/Ventilator Gram Stain - Final 05/23/17 08:20 Blood - Central Line Blood Culture - Final NO GROWTH AFTER 5 DAYS INCUBATION 05/23/17 08:20 Blood - Central Line Blood Culture - Final NO GROWTH AFTER 5 DAYS INCUBATION 05/21/17 20:00 Blood - Peripheral Venous Blood Culture - Final NO GROWTH AFTER 5 DAYS INCUBATION 05/21/17 19:56 Blood - Peripheral Venous Blood Culture - Final NO GROWTH AFTER 5 DAYS INCUBATION 05/29/17 10:45 Sputum - Endotrachea Suction/Ventilator Sputum Culture - Preliminary Non Lactose Fermenting Gnb 05/29/17 10:30 Blood - Peripheral Venous Blood Culture - Preliminary NO GROWTH OBTAINED AFTER 72 HOURS, INCUBATION TO CONTINUE FOR 2 DAYS. Laboratory Tests 06/01/17 05:40 WBC 6.8 Hgb 9.0 L Hct 27.4 L Plt Count 88 L Assessment Multiorgan failure Peripheral gangrene LE and upper extremities Plan Continue to observe off antibiotics In any case doubtful antibiotic going to alter clinical course Hermelinda TELLES
[2017-06-02] MEDS ORDERED: SODIUM CHLORIDE 250 ML IV PRN (09:14)
[2017-06-02] MEDS: MEROPENEM 500 MG in DEXTROSE 5%-WATER - 100 ML IVPB SCH ×2 (10:39→21:34)
[2017-06-02] MEDS: VITAMIN B COMP W-C 1 EA TABLET PO SCH (10:39)
[2017-06-02] MEDS: CALCITRIOL 0.25 MCG CAPSULE (FP) PO SCH (10:40)
[2017-06-02] MEDS: PANTOPRAZOLE SODIUM 40 MG VIAL IVPUSH SCH ×2 (10:40→21:34)
[2017-06-02] MEDS: AMINO ACIDS/PROTEIN HYDROLYS 30 ML LIQUID.PKT PO SCH (10:40)
[2017-06-02] MEDS: MIDODRINE HCL 5 MG TABLET PO SCH ×3 (10:40→17:35)
--- NOTE | 2017-06-02 10:46 | PN ---
Progress Note (short form) - Note Progress Note: pt seen/ examined. all f/u noted/ appreciated. remains vent dependent off abx generalized anasarca Vital Signs Temp 96.2 F L 06/02/17 08:00 Pulse 80 06/02/17 10:23 Resp 14 06/02/17 10:00 BP 64/46 06/02/17 10:00 Pulse Ox 99 06/02/17 10:23 Intake & Output 06/01/17 06/01/17 06/02/17 11:59 23:59 11:59 Intake Total 447 436.4 240 Balance 447 436.4 240 Weight 203 lb 3.2 oz 203 lb 8 oz Intake: IV 347 176.4 120 DIPRIVAN - 1,000,000 mcg 135 102 120 In 100 ml @ 5 MCG/KG/MIN 2.754 mls/hr IVPB TITR [facility] Rx#:[id number] DOBUTAMINE 250 MG/D5W - 212 74.4 250,000 mcg In 250 ml @ 5 MCG/KG/MIN 24.889 mls/hr IV TITR RU[facility] Rx#: [id number] IVPB 100 200 Tube Irrigant 60 120 Other: Voiding Method Diaper Diaper Bowel Movement Yes Yes Weight Measurement Method Built in Bedscale Built in Bedscale Active Medications Albumin Human (Albumin Human 25%) 12.5 gm IVPB Q30M [facility] Stop: 06/02/17 10:46 Albuterol/Ipratropium (Duoneb -) 1 amp NEB Q4HPO [facility] Last Admin: 06/02/17 06:34 Dose: 1 amp Amino Acids (Prosource No Carb Liquid Pkt) 30 ml PO DAILY [facility] Last Admin: 06/02/17 10:40 Dose: 30 ml Calcitriol (Rocaltrol -) 0.25 mcg PO DAILY [facility] Last Admin: 06/02/17 10:40 Dose: 0.25 mcg Chlorhexidine Gluconate (Hibiclens For Decolonization -) 1 applic TP HS [facility] Last Admin: 06/01/17 21:47 Dose: 1 applic Gabapentin (Neurontin -) 100 mg NGT TID [facility] Last Admin: 06/02/17 06:39 Dose: 100 mg Hydrocortisone Sodium Succinate (Solu-Cortef -) 100 mg IVPB Q8H-IV [facility] Last Admin: 06/02/17 10:38 Dose: 100 mg Norepinephrine Bitartrate 8, (000 mcg/ Dextrose) 500 mls @ 18.75 mls/hr IV TITR [facility]; 5 MCG/MIN PRN Reason: Protocol Last Admin: 06/01/17 17:23 Dose: Not Given Meropenem 500 mg/ Dextrose 100 mls @ 200 mls/hr IVPB BID [facility] Last Admin: 06/02/17 10:39 Dose: 200 mls/hr Dobutamine HCl/Dextrose (Dobutamine 250 Mg/D5w -) 250,000 mcg in 250 mls @ 24.889 mls/hr IV TITR [facility]; 5 MCG/KG/MIN PRN Reason: Protocol Last Admin: 06/01/17 17:21 Dose: Not Given Propofol (Diprivan -) 1,000,000 mcg in 100 mls @ 2.754 mls/hr IVPB TITR [facility]; 5 MCG/KG/MIN PRN Reason: Protocol Last Admin: 06/02/17 10:39 Dose: 20 mcg/kg/min, 11.017 mls/hr Insulin Aspart (Novolog Vial Sliding Scale -) 1 vial SQ ACHS [facility] PRN Reason: Protocol Last Admin: 06/02/17 06:55 Dose: Not Given Midodrine (Proamatine -) 5 mg PO TID-MID [facility] Last Admin: 06/02/17 10:40 Dose: 5 mg Mometasone Furoate (Asmanex 220mcg -) 1 puff IH HS [facility] Last Admin: 06/01/17 21:47 Dose: Not Given Morphine Sulfate (Morphine Sulfate) 2 mg IVPUSH Q6H PRN PRN Reason: PAIN LEVEL 1-5 Last Admin: 05/26/17 18:36 Dose: 2 mg Multivit/Ca Carb/B Cmplx/FA/Prenat (Nephro-Pancho -) 1 tablet PO DAILY [facility] Last Admin: 06/02/17 10:39 Dose: 1 tablet Pantoprazole Sodium (Protonix Iv) 40 mg IVPUSH BID [facility] Last Admin: 06/02/17 10:40 Dose: 40 mg CBC, BMP 06/01/17 05:40 06/01/17 05:40 Physical Exam Constitutional: Yes: Other/ orally intubated. Neck: Yes: Other-- central line/ ngt + Cardiovascular: Yes: Regular Rate and Rhythm Respiratory: Yes: Diminished Gastrointestinal: Yes: Soft Wound/Incision: Yes: Other (dry gangrene) Generalized anasarca + Assessment/Plan sepsis- GI bleed respiratory failure recent CABG-bioMVR/TVR esrd--on hemodialysis severe PAD with dry gangrene of both legs thrombocytopenia- hypovolemic shock. meds reviewed Continue present care Antibiotics per i/d-- off now Overall condition/and prognosis poor. discussed with ICU Attending again today-- Dr. Appiah transfuse prn. monitor bgm. will follow. will need trach/ peg cc time 25 min. Problem List - Problems (1) Respiratory failure Code(s): J96.90 - RESPIRATORY FAILURE, UNSP, UNSP W HYPOXIA OR HYPERCAPNIA (2) Coagulopathy Code(s): D68.9 - COAGULATION DEFECT, UNSPECIFIED (3) GI bleed Code(s): K92.2 - GASTROINTESTINAL HEMORRHAGE, UNSPECIFIED (4) Gangrene Code(s): I96 - GANGRENE, NOT ELSEWHERE CLASSIFIED (5) Hx of CABG Code(s): Z95.1 - PRESENCE OF AORTOCORONARY BYPASS GRAFT
--- NOTE | 2017-06-02 12:55 | PN ---
Teaching Attending Note Name of Resident: Casandra Parry ATTENDING PHYSICIAN STATEMENT I saw and evaluated the patient. I reviewed the resident's note and discussed the case with the resident. I agree with the resident's findings and plan as documented. SUBJECTIVE: Patient seen and examined in the ICU. Remains intubated, sedated. Currently off pressors. Ute was removed, so BP measurements not reliable. Intake & Output 05/30/17 05/31/17 06/01/17 06/02/17 23:59 23:59 23:59 23:59 Intake Total 837.2 1369.9 883.4 240 Output Total 0 Balance 837.2 1369.9 883.4 240 Weight 200 lb 1.6 oz 205 lb 8 oz 203 lb 3.2 oz 203 lb 8 oz Last Vital Signs Temp Pulse Resp BP Pulse Ox 96.4 F L 80 15 61/39 99 06/02/17 12:00 06/02/17 12:00 06/02/17 12:00 06/02/17 12:00 06/02/17 10:23 Active Medications Albuterol/Ipratropium (Duoneb -) 1 amp NEB Q4HPO [facility] Last Admin: 06/02/17 10:25 Dose: 1 amp Amino Acids (Prosource No Carb Liquid Pkt) 30 ml PO DAILY [facility] Last Admin: 06/02/17 10:40 Dose: 30 ml Calcitriol (Rocaltrol -) 0.25 mcg PO DAILY [facility] Last Admin: 06/02/17 10:40 Dose: 0.25 mcg Chlorhexidine Gluconate (Hibiclens For Decolonization -) 1 applic TP HS [facility] Last Admin: 06/01/17 21:47 Dose: 1 applic Gabapentin (Neurontin -) 100 mg NGT TID [facility] Last Admin: 06/02/17 06:39 Dose: 100 mg Hydrocortisone Sodium Succinate (Solu-Cortef -) 100 mg IVPB Q8H-IV [facility] Last Admin: 06/02/17 10:38 Dose: 100 mg Norepinephrine Bitartrate 8, (000 mcg/ Dextrose) 500 mls @ 18.75 mls/hr IV TITR RUEL; 5 MCG/MIN PRN Reason: Protocol Last Admin: 06/01/17 17:23 Dose: Not Given Meropenem 500 mg/ Dextrose 100 mls @ 200 mls/hr IVPB BID [facility] Last Admin: 06/02/17 10:39 Dose: 200 mls/hr Dobutamine HCl/Dextrose (Dobutamine 250 Mg/D5w -) 250,000 mcg in 250 mls @ 24.889 mls/hr IV TITR RUEL; 5 MCG/KG/MIN PRN Reason: Protocol Last Admin: 06/01/17 17:21 Dose: Not Given Propofol (Diprivan -) 1,000,000 mcg in 100 mls @ 2.754 mls/hr IVPB TITR RUEL; 5 MCG/KG/MIN PRN Reason: Protocol Last Admin: 06/02/17 10:39 Dose: 20 mcg/kg/min, 11.017 mls/hr Insulin Aspart (Novolog Vial Sliding Scale -) 1 vial SQ ACHS [facility] PRN Reason: Protocol Last Admin: 06/02/17 12:45 Dose: 2 units Midodrine (Proamatine -) 5 mg PO TID-MID [facility] Last Admin: 06/02/17 10:40 Dose: 5 mg Mometasone Furoate (Asmanex 220mcg -) 1 puff IH HS [facility] Last Admin: 06/01/17 21:47 Dose: Not Given Morphine Sulfate (Morphine Sulfate) 2 mg IVPUSH Q6H PRN PRN Reason: PAIN LEVEL 1-5 Last Admin: 05/26/17 18:36 Dose: 2 mg Multivit/Ca Carb/B Cmplx/FA/Prenat (Nephro-Pancho -) 1 tablet PO DAILY [facility] Last Admin: 06/02/17 10:39 Dose: 1 tablet Pantoprazole Sodium (Protonix Iv) 40 mg IVPUSH BID [facility] Last Admin: 06/02/17 10:40 Dose: 40 mg Gen: intubated, sedated, +anasarca Heart: RRR Lung: decreased breath sounds at the bases Abd: soft, nontender Ext: + edema Laboratory Results - last 24 hr 05/29/17 05/31/17 06/01/17 14:30 18:35 17:20 POC Glucometer 154.07355 151.87366 Blood Type O POSITIVE Antibody Screen Negative Crossmatch See Detail 06/01/17 06/02/17 22:43 05:52 POC Glucometer 171.59479 [id number] Blood Type Antibody Screen Crossmatch A/P Acute Hypoxic Respiratory Failure Shock - ?Septic vs Cardiogenic GI Bleed +Troponins likely Demand Ischemia LV Systolic Dysfunction Volume Overload Thrombocytopenia Coagulopathy Gangrene CAD s/p CABG ESRD on HD HTN DM - Currently off ABX - monitoring off pressors, inotropes, maintain MAP >65 - HD per renal with ultrafiltration - taper steroids - monitor platelets, coags, fibrinogen level - transfuse as needed - hold sedation to assess mental status - spontaneous breathing trials as tolerated when mental status improved: May need Trach - enteral feeds - DVT/GI prophylaxis - Will attempt another Ute placement as we are unable to follow her hemodynamics non-invasively. The risks and benefits were discussed with her family given her severe vascular disease. - continue ICU monitoring - Overall prognosis for meaningful survival is poor Dr Lozada Critical care time spent in reviewing chart, evaluating patient and formulating plan 35 min
--- NOTE | 2017-06-02 14:19 | PROC ---
Procedure Note Procedure: Procedure: Arterial line placement in right axillary artery. indication: BP monitoring in shock. under AAP area cleaned in draped. artery palpated and confirmed with ultrasound. Local anesthesia given 1% lidocain. needle inserted in artery, followed by guide wire, over guide wire artery line was inserted. line fixed with suture area cleaned and dressing done. BP 116/52. DE 75
[2017-06-02 14:27] LABS: ALBUMIN 1.9 g/dl (3.4-5.0); ANION GAP 14 (8-16); BILIRUBIN,TOTAL 1.8 mg/dL (0.2-1.0); BLOOD UREA NITROGEN 36 mg/dL (7-18); CALCIUM 7.4 mg/dL (8.5-10.1); CHLORIDE 97 mmol/L (98-107); CO2 25 mmol/L (21-32); CREATININE 2.5 mg/dL (0.55-1.02); GLUCOSE,RANDOM 117 mg/dL (74-106); POTASSIUM 3.2 mmol/L (3.5-5.1); SGOT/AST 72 U/L (15-37); SGPT/ALT 35 U/L (12-78); SODIUM 136 mmol/L (136-145); TOT PROT 4.9 g/dl (6.4-8.2)
[2017-06-02 14:28] LABS: ALK PHOS 89 U/L (45-117)
--- NOTE | 2017-06-02 14:50 | PN ---
Progress Note, Physician Chief Complaint: intubated and sedated tele neg History of Present Illness: 56F w/ DM, HTN, s/p CABG 03/2017 after NSTEMI at [facility] with Dr. Martines MVR and TVR , ESRD on Hemodialysis (M/W/F) and PVD, who presented from [facility] for rectal bleeding. She was severely anemic and hypotensive. SP multiple PRBC and on Nor- epi, now off all pressors adn inotropes. Took aspirin, but no other AC. coumadin was stopped on 05/11. echo 05/22/17 mod glob HK ef30% mild mr severe TR - Current Medication List Current Medications: Active Medications Albuterol/Ipratropium (Duoneb -) 1 amp NEB Q4HPO [facility] Last Admin: 06/02/17 10:25 Dose: 1 amp Amino Acids (Prosource No Carb Liquid Pkt) 30 ml PO DAILY [facility] Last Admin: 06/02/17 10:40 Dose: 30 ml Calcitriol (Rocaltrol -) 0.25 mcg PO DAILY [facility] Last Admin: 06/02/17 10:40 Dose: 0.25 mcg Chlorhexidine Gluconate (Hibiclens For Decolonization -) 1 applic TP HS [facility] Last Admin: 06/01/17 21:47 Dose: 1 applic Gabapentin (Neurontin -) 100 mg NGT TID [facility] Last Admin: 06/02/17 06:39 Dose: 100 mg Hydrocortisone Sodium Succinate (Solu-Cortef -) 100 mg IVPB Q8H-IV [facility] Last Admin: 06/02/17 10:38 Dose: 100 mg Norepinephrine Bitartrate 8, (000 mcg/ Dextrose) 500 mls @ 18.75 mls/hr IV TITR RU[facility]; 5 MCG/MIN PRN Reason: Protocol Last Admin: 06/01/17 17:23 Dose: Not Given Meropenem 500 mg/ Dextrose 100 mls @ 200 mls/hr IVPB BID [facility] Last Admin: 06/02/17 10:39 Dose: 200 mls/hr Dobutamine HCl/Dextrose (Dobutamine 250 Mg/D5w -) 250,000 mcg in 250 mls @ 24.889 mls/hr IV TITR [facility]; 5 MCG/KG/MIN PRN Reason: Protocol Last Admin: 06/01/17 17:21 Dose: Not Given Propofol (Diprivan -) 1,000,000 mcg in 100 mls @ 2.754 mls/hr IVPB TITR [facility]; 5 MCG/KG/MIN PRN Reason: Protocol Last Admin: 06/02/17 10:39 Dose: 20 mcg/kg/min, 11.017 mls/hr Insulin Aspart (Novolog Vial Sliding Scale -) 1 vial SQ ACHS [facility] PRN Reason: Protocol Last Admin: 06/02/17 12:45 Dose: 2 units Midodrine (Proamatine -) 5 mg PO TID-MID [facility] Last Admin: 06/02/17 10:40 Dose: 5 mg Mometasone Furoate (Asmanex 220mcg -) 1 puff IH HS [facility] Last Admin: 06/01/17 21:47 Dose: Not Given Morphine Sulfate (Morphine Sulfate) 2 mg IVPUSH Q6H PRN PRN Reason: PAIN LEVEL 1-5 Last Admin: 05/26/17 18:36 Dose: 2 mg Multivit/Ca Carb/B Cmplx/FA/Prenat (Nephro-Pancho -) 1 tablet PO DAILY [facility] Last Admin: 06/02/17 10:39 Dose: 1 tablet Pantoprazole Sodium (Protonix Iv) 40 mg IVPUSH BID [facility] Last Admin: 06/02/17 10:40 Dose: 40 mg - Objective Vital Signs: Vital Signs Temperature 96.4 F L 06/02/17 12:00 Pulse Rate 76 06/02/17 14:15 Respiratory Rate 18 06/02/17 14:15 Blood Pressure 105/50 06/02/17 14:15 O2 Sat by Pulse Oximetry (%) 99 06/02/17 10:23 Constitutional: Yes: No Distress, Calm Eyes: Yes: Conjunctiva Clear, EOM Intact HENT: Yes: Normocephalic Neck: Yes: Trachea Midline Cardiovascular: Yes: Regular Rate and Rhythm Respiratory: Yes: Mechanically Ventilated Gastrointestinal: Yes: Normal Bowel Sounds Extremities: Yes: WNL Edema: No Peripheral Pulses WNL: Yes Labs: CBC, BMP 06/01/17 05:40 06/02/17 13:30 INR, PTT INR 1.11 (0.82-1.09) 06/01/17 05:40 Fibrinogen 134.0 mg/dL (238-498) L 04/01/18 05:40 Problem List - Problems (1) CAD (coronary artery disease) Assessment/Plan: Now off of pressors and inotropes. Elevated troponin likely due to demand from shock. Not a candidate for further cardiac testing. Volume overloaded. HD ultrafiltration for volume removal. No AC as admitted with severe anemia and also with thrombocytopenia and recent bleed requiring transfusion. awaiting tracheostomy later this week. Prognosis remains critical. Code(s): I25.10 - ATHSCL HEART DISEASE OF [place] CORONARY ARTERY W/O ANG PCTRS Qualifiers: Coronary Disease-Associated Artery/Lesion type: [place] artery Associated angina: without angina
--- NOTE | 2017-06-02 16:55 | PN ---
Progress Note, Physician History of Present Illness: Pt seen and examined at bedside. She remains in the ICU. Pt remains intubated. - Current Medication List Current Medications: Active Medications Albuterol/Ipratropium (Duoneb -) 1 amp NEB Q4HPO [facility] Last Admin: 06/02/17 14:40 Dose: 1 amp Amino Acids (Prosource No Carb Liquid Pkt) 30 ml PO DAILY [facility] Last Admin: 06/02/17 10:40 Dose: 30 ml Calcitriol (Rocaltrol -) 0.25 mcg PO DAILY [facility] Last Admin: 06/02/17 10:40 Dose: 0.25 mcg Chlorhexidine Gluconate (Hibiclens For Decolonization -) 1 applic TP HS [facility] Last Admin: 06/01/17 21:47 Dose: 1 applic Gabapentin (Neurontin -) 100 mg NGT TID [facility] Last Admin: 06/02/17 15:15 Dose: 100 mg Hydrocortisone Sodium Succinate (Solu-Cortef -) 100 mg IVPB Q8H-IV [facility] Last Admin: 06/02/17 10:38 Dose: 100 mg Norepinephrine Bitartrate 8, (000 mcg/ Dextrose) 500 mls @ 18.75 mls/hr IV TITR [facility]; 5 MCG/MIN PRN Reason: Protocol Last Admin: 06/01/17 17:23 Dose: Not Given Meropenem 500 mg/ Dextrose 100 mls @ 200 mls/hr IVPB BID [facility] Last Admin: 06/02/17 10:39 Dose: 200 mls/hr Dobutamine HCl/Dextrose (Dobutamine 250 Mg/D5w -) 250,000 mcg in 250 mls @ 24.889 mls/hr IV TITR [facility]; 5 MCG/KG/MIN PRN Reason: Protocol Last Admin: 06/01/17 17:21 Dose: Not Given Propofol (Diprivan -) 1,000,000 mcg in 100 mls @ 2.754 mls/hr IVPB TITR [facility]; 5 MCG/KG/MIN PRN Reason: Protocol Last Admin: 06/02/17 10:39 Dose: 20 mcg/kg/min, 11.017 mls/hr Insulin Aspart (Novolog Vial Sliding Scale -) 1 vial SQ ACHS [facility] PRN Reason: Protocol Last Admin: 06/02/17 12:45 Dose: 2 units Midodrine (Proamatine -) 5 mg PO TID-MID [facility] Last Admin: 06/02/17 15:15 Dose: 5 mg Mometasone Furoate (Asmanex 220mcg -) 1 puff IH HS [facility] Last Admin: 06/01/17 21:47 Dose: Not Given Morphine Sulfate (Morphine Sulfate) 2 mg IVPUSH Q6H PRN PRN Reason: PAIN LEVEL 1-5 Last Admin: 05/26/17 18:36 Dose: 2 mg Multivit/Ca Carb/B Cmplx/FA/Prenat (Nephro-Pancho -) 1 tablet PO DAILY [facility] Last Admin: 06/02/17 10:39 Dose: 1 tablet Pantoprazole Sodium (Protonix Iv) 40 mg IVPUSH BID [facility] Last Admin: 06/02/17 10:40 Dose: 40 mg - Objective Vital Signs: Vital Signs Temperature 96.4 F L 06/02/17 12:00 Pulse Rate 79 06/02/17 15:16 Respiratory Rate 14 06/02/17 15:16 Blood Pressure 110/51 06/02/17 15:16 O2 Sat by Pulse Oximetry (%) 97 06/02/17 10:40 Constitutional: Yes: Calm Eyes: Yes: Conjunctiva Clear HENT: Yes: Atraumatic Cardiovascular: Yes: S1, S2 Respiratory: Yes: Mechanically Ventilated Gastrointestinal: Yes: Normal Bowel Sounds, Soft Genitourinary: Yes: Incontinence Musculoskeletal: Yes: Muscle Weakness Edema: Yes Edema: LUE: 1+, RUE: 1+, LLE: 1+, RLE: 1+ Integumentary: Yes: Other (gangrene of foot) Neurological: Yes: Lethargy Labs: CBC, BMP 06/01/17 05:40 06/02/17 13:30 INR, PTT INR 1.11 (0.82-1.09) 06/01/17 05:40 Fibrinogen 134.0 mg/dL (238-498) L 06/01/17 05:40 Problem List - Problems (1) ESRD (end stage renal disease) Code(s): N18.6 - END STAGE RENAL DISEASE (2) CAD (coronary artery disease) Code(s): I25.10 - ATHSCL HEART DISEASE OF [place] CORONARY ARTERY W/O ANG PCTRS Qualifiers: Coronary Disease-Associated Artery/Lesion type: [place] artery Associated angina: without angina (3) Hx of CABG Code(s): Z95.1 - PRESENCE OF AORTOCORONARY BYPASS GRAFT (4) Anemia Code(s): D64.9 - ANEMIA, UNSPECIFIED (5) GI bleed Code(s): K92.2 - GASTROINTESTINAL HEMORRHAGE, UNSPECIFIED Assessment/Plan Current Medications Generic Name Dose Route Start Last Admin Trade Name Freq PRN Reason Stop Dose Admin Albuterol/Ipratropium 1 amp 05/21/17 18:00 06/02/17 14:40 Duoneb - NEB 1 amp Q4HPO [facility] Administration Amino Acids 30 ml 05/26/17 10:00 06/02/17 10:40 Prosource No Carb Liquid Pkt PO 30 ml DAILY [facility] Administration Calcitriol 0.25 mcg 05/23/17 10:45 06/02/17 10:40 Rocaltrol - PO 0.25 mcg DAILY [facility] Administration Chlorhexidine Gluconate 1 applic 05/21/17 22:00 06/01/17 21:47 Hibiclens For Decolonization - TP 1 applic HS [facility] Administration Gabapentin 100 mg 05/26/17 22:00 06/02/17 15:15 Neurontin - NGT 100 mg TID [facility] Administration Hydrocortisone Sodium Succinate 100 mg 05/23/17 18:00 06/02/17 10:38 Solu-Cortef - IVPB 100 mg Q8H-IV [facility] Administration Norepinephrine Bitartrate 8, 500 mls @ 18.75 mls/hr 05/21/17 16:45 06/01/17 17:23 000 mcg/ Dextrose IV Not Given TITR [facility] Protocol 5 MCG/MIN Meropenem 500 mg/ Dextrose 100 mls @ 200 mls/hr 05/23/17 08:00 06/02/17 10:39 IVPB 200 mls/hr BID [facility] Administration Dobutamine HCl/Dextrose 250,000 mcg in 250 mls @ 24.889 mls/hr 05/23/17 16:45 06/01/17 17:21 Dobutamine 250 Mg/D5w - IV Not Given TITR [facility] Protocol 5 MCG/KG/MIN Propofol 1,000,000 mcg in 100 mls @ 2.754 mls/hr 05/27/17 11:15 06/02/17 10: 39 Diprivan - IVPB 20 mcg/kg/min TITR [facility] 11.017 mls/hr Protocol Administration 5 MCG/KG/MIN Insulin Aspart 1 vial 05/22/17 22:00 06/02/17 12:45 Novolog Vial Sliding Scale - SQ 2 units ACHS [facility] Administration Protocol Midodrine 5 mg 05/21/17 23:15 06/02/17 15:15 Proamatine - PO 5 mg TID-MID [facility] Administration Mometasone Furoate 1 puff 05/21/17 22:00 06/01/17 21:47 Asmanex 220mcg - IH Not Given HS [facility] Morphine Sulfate 2 mg 05/26/17 15:27 05/26/17 18:36 Morphine Sulfate IVPUSH 2 mg Q6H PRN Administration PAIN LEVEL 1-5 Multivit/Ca Carb/B Cmplx/FA/Prenat 1 tablet 05/22/17 10:00 06/02/17 10:39 Nephro-Pancho - PO 1 tablet DAILY [facility] Administration Pantoprazole Sodium 40 mg 05/25/17 10:00 06/02/17 10:40 Protonix Iv IVPUSH 40 mg BID [facility] Administration Impression 1. ESRD 2. GI bleed likely from hemorrhoids 3. hemorrhoids 4. anemia 5. CAD 6. s/p CABG 7. DM 8. hypotension 9. lactic acidosis 10. volume overload 11. resp failure requiring intubation Plan - HD today - a-line placed to monitor blood pressure - follow up cxr - vent support - heme follow up - monitor pulse ox - keep in ICU - discussed with ICU team - will attempt to UF 3 liters today - will follow Dr Plummer
[2017-06-02] MEDS: ALBUMIN HUMAN 25% 12.5 GM/50 ML VIAL IVPB SCH ×4 (17:15→18:41)
[2017-06-02] MEDS: NOREPINEPHRINE BITARTRATE 8,000 MCG in DEXTROSE 5%-WATER - 492 ML IV SCH (17:34)
[2017-06-02] MEDS: DOBUTAMINE 250 MG/D5W - 250,000 MCG/250 ML INFUS.BAG IV SCH (18:30)
[2017-06-02] MEDS ORDERED: POTASSIUM CHLORIDE ORAL LIQUID 20 MEQ/15 ML NGT ONE (19:56)
--- NOTE | 2017-06-02 20:03 | PN ---
Physical Exam: SUBJECTIVE: Patient seen and examined in the ICU. Pt remains intubated and sedated, and looks comfortable. Currently off pressors. OBJECTIVE: Vital Signs Period Temp Pulse Resp BP Sys/Ceron Pulse Ox Last 24 Hr 96.2 F-98 F 76-91 14-24 61-110/23-51 97-99 GENERAL: intubated, sedated and comfortable looking LUNGS: Breath sounds equal, clear to auscultation bilaterally, no wheezes, no crackles, no accessory muscle use. HEART: Regular rate and rhythm, S1, S2 without murmur, rub or gallop. ABDOMEN: Soft, nondistended. EXTREMITIES: susan gangrenous changes to feet. 3+ pitting edema to susan LE. Anasarca throughout persists. SKIN: Large blister to medial Right UE noted Laboratory Results - last 24 hr 06/01/17 06/02/17 06/02/17 22:43 05:52 12:40 Sodium Potassium Chloride Carbon Dioxide Anion Gap BUN Creatinine Creat Clearance w eGFR POC Glucometer 171.23522 148.38780 161.24976 Random Glucose Calcium Total Bilirubin AST ALT Alkaline Phosphatase Total Protein Albumin 06/02/17 06/02/17 13:30 18:10 Sodium 136 Potassium 3.2 L Chloride 97 L Carbon Dioxide 25 Anion Gap 14 BUN 36 H Creatinine 2.5 H Creat Clearance w eGFR 19.78 POC Glucometer 143.35465 Random Glucose 117 H Calcium 7.4 L Total Bilirubin 1.8 H AST 72 H ALT 35 Alkaline Phosphatase 89 Total Protein 4.9 L Albumin 1.9 L Active Medications Generic Name Dose Route Start Last Admin Trade Name Austinq PRN Reason Stop Dose Admin Albuterol/Ipratropium 1 amp 05/21/17 18:00 06/02/17 17:50 Duoneb - NEB 1 amp Q4HPO [facility] Administration Amino Acids 30 ml 05/26/17 10:00 06/02/17 10:40 Prosource No Carb Liquid Pkt PO 30 ml DAILY [facility] Administration Calcitriol 0.25 mcg 05/23/17 10:45 06/02/17 10:40 Rocaltrol - PO 0.25 mcg DAILY [facility] Administration Chlorhexidine Gluconate 1 applic 05/21/17 22:00 06/01/17 21:47 Hibiclens For Decolonization - TP 1 applic HS [facility] Administration Gabapentin 100 mg 05/26/17 22:00 06/02/17 15:15 Neurontin - NGT 100 mg TID [facility] Administration Hydrocortisone Sodium Succinate 100 mg 05/23/17 18:00 06/02/17 17:35 Solu-Cortef - IVPB 100 mg Q8H-IV [facility] Administration Norepinephrine Bitartrate 8, 500 mls @ 18.75 mls/hr 05/21/17 16:45 06/02/17 17:34 000 mcg/ Dextrose IV Not Given TITR [facility] Protocol 5 MCG/MIN Meropenem 500 mg/ Dextrose 100 mls @ 200 mls/hr 05/23/17 08:00 06/02/17 10:39 IVPB 200 mls/hr BID [facility] Administration Dobutamine HCl/Dextrose 250,000 mcg in 250 mls @ 24.889 mls/hr 05/23/17 16:45 06/02/17 18:30 Dobutamine 250 Mg/D5w - IV Not Given TITR [facility] Protocol 5 MCG/KG/MIN Propofol 1,000,000 mcg in 100 mls @ 2.754 mls/hr 05/27/17 11:15 06/02/17 17: 35 Diprivan - IVPB 20 mcg/kg/min TITR [facility] 11.017 mls/hr Protocol Administration 5 MCG/KG/MIN Insulin Aspart 1 vial 05/22/17 22:00 06/02/17 18:29 Novolog Vial Sliding Scale - SQ Not Given ACHS [facility] Protocol Midodrine 5 mg 05/21/17 23:15 06/02/17 17:35 Proamatine - PO 5 mg TID-MID [facility] Administration Mometasone Furoate 1 puff 05/21/17 22:00 06/01/17 21:47 Asmanex 220mcg - IH Not Given HS [facility] Morphine Sulfate 2 mg 05/26/17 15:27 05/26/17 18:36 Morphine Sulfate IVPUSH 2 mg Q6H PRN Administration PAIN LEVEL 1-5 Multivit/Ca Carb/B Cmplx/FA/Prenat 1 tablet 05/22/17 10:00 06/02/17 10:39 Nephro-Pancho - PO 1 tablet DAILY [facility] Administration Pantoprazole Sodium 40 mg 05/25/17 10:00 06/02/17 10:40 Protonix Iv IVPUSH 40 mg BID [facility] Administration ASSESSMENT/PLAN: 56F with PMH of DM, htn, VT (s/p CABG 03/2017), ESRD (on HD MWF), and hemorrhoids , admitted to the ICU with septic shock. # septic shock - with (+) sputum culture - ID (Dr. Shen) recs appreciated: Meropenem - sputum culture (+) for Stenotrophomon Maltophilia - blood cultures (-) x 96 hrs - off pressors now, maintain MAP > 65 - new A-line placed in Right axilla 06/02/17 # acute hypoxic respiratory failure - intubated on vent - taper steroids - spontaneous breathing trials as tolerated to assess mental status - consider trach - continue duonebs and Asmanex # CV: CAD (s/p CABG) and systolic CHF - Cardiology (Dr. Stapleton) recs appreciated: no AC 2/2 severe anemia, thrombocytopenia, and recent bleed requiring transfusion # ESRD - Nephrology (Dr. Plummer) recs appreciated: HD with ultrafiltration today with goal of removing 3 kg - volume overload # GI bleed - likely 2/2 hemorrhoids - hgb stable - transfuse as needed # DM - BGMs - SSI - continue Neurontin # FEN - Fluids: enteral nutrition - Electrolytes: hypokalemia repleted with K-dur 40 meq oral liquid via NGT, continue to monitor - Nutrition: Nepro to goal of 30 ml/hr x 24 hrs, Prosource 30ml daily # Prophylaxis - DVT chemoprophylaxis held 2/2 thrombocytopenia and mechanical ppx held 2/2 PAD - GI ppx with Protonix #Dispo - Full Code - after family meeting today Visit type - Emergency Visit Emergency Visit: Yes ED Registration Date: 05/21/17 Care time: The patient presented to the Emergency Department on the above date and was hospitalized for further evaluation of their emergent condition. - New Patient This patient is new to me today: No - Critical Care Critical Care patient: Yes Total Critical Care Time (in minutes): 45 Critical Care Statement: The care of this patient involved high complexity decision making to prevent further life threatening deterioration of the patient 's condition and/or to evaluate & treat vital organ system(s) failure or risk of failure.
[2017-06-02] MEDS: MOMETASONE FUROATE 220 MCG/IH INHALER IH SCH (21:34)
[2017-06-02] MEDS: CHLORHEXIDINE GLUCONATE 4% CLEANSER FOR DECOLONIZATION TP SCH (21:35)
[2017-06-03] MEDS: ALBUTEROL SO4 2.5/IPRATROPIUM 0.5 INH SOL 3 ML VIAL.NEB. NEB SCH ×6 (02:00→22:27)
[2017-06-03] MEDS: HYDROCORTISONE SOD SUCCINATE 100 MG/2 ML VIAL IVPB SCH ×3 (03:00→18:34)
[2017-06-03] MEDS: INSULIN SLIDING SCALE (NOVOLOG) 1 VIAL SQ SCH ×4 (06:04→22:00)
[2017-06-03] MEDS: GABAPENTIN 100 MG CAPSULE (FP) NGT SCH ×3 (06:04→22:21)
[2017-06-03] MEDS: PROPOFOL 1,000,000 MCG/100 ML VIAL IVPB SCH ×3 (06:07→12:05)
[2017-06-03 06:34] LABS: CHLORIDE 99 mmol/L (98-107); POTASSIUM 3.4 mmol/L (3.5-5.1); SODIUM 137 mmol/L (136-145)
[2017-06-03 06:43] LABS: ALBUMIN 2.6 g/dl (3.4-5.0); ALK PHOS 84 U/L (45-117); ANION GAP 12 (8-16); BILIRUBIN,TOTAL 1.9 mg/dL (0.2-1.0); BLOOD UREA NITROGEN 28 mg/dL (7-18); CALCIUM 7.5 mg/dL (8.5-10.1); CO2 26 mmol/L (21-32); GLUCOSE,RANDOM 135 mg/dL (74-106); SGOT/AST 72 U/L (15-37); SGPT/ALT 39 U/L (12-78); TOT PROT 5.3 g/dl (6.4-8.2)
[2017-06-03] MEDS ORDERED: POTASSIUM CHLORIDE ORAL LIQUID 20 MEQ/15 ML NGT ONE (08:15)
[2017-06-03] MEDS ORDERED: PT OWN MED DRAWER 7, Y5N ONE (09:40)
--- NOTE | 2017-06-03 09:50 | PN ---
Progress Note (short form) - Note Progress Note: remains intubated opens her eyes tapers off Vital Signs Period Temp Pulse Resp BP Sys/Ceron Pulse Ox Last 24 Hr 96.4 F-97.0 F 76-102 14-20 61-117/39-55 97-100 cor-rrr llungs decreased bs at bases abd soft,nt ext dressings intact- dry gangrene of the feet CBC, BMP 06/01/17 05:40 06/03/17 05:40 Microbiology 05/29/17 10:45 Gram Stain - Final Sputum - Endotrachea Suction/Ventilator Sputum Culture - Final Stenotrophomon.(X.)Maltophilia 05/29/17 10:30 Blood Culture - Preliminary Blood - Peripheral Venous NO GROWTH OBTAINED AFTER 96 HOURS, INCUBATION TO CONTINUE FOR 1 DAYS. cxray improved a/p sepsis- still on meropenem day #11- will d/c doubt pneumonia- cxray improved GI bleed respiratory failure-remains intubated recent CABG-bioMVR/TVR esrd/hd severe PAD with dry gangrene of both legs overall prognosis is poor Problem List - Problems (1) Sepsis Code(s): A41.9 - SEPSIS, UNSPECIFIED ORGANISM (2) GI bleed Code(s): K92.2 - GASTROINTESTINAL HEMORRHAGE, UNSPECIFIED (3) Respiratory failure Code(s): J96.90 - RESPIRATORY FAILURE, UNSP, UNSP W HYPOXIA OR HYPERCAPNIA (4) Gangrene Code(s): I96 - GANGRENE, NOT ELSEWHERE CLASSIFIED (5) H/O heart valve replacement with bioprosthetic valve Code(s): Z95.3 - PRESENCE OF XENOGENIC HEART VALVE (6) ESRD (end stage renal disease) Code(s): N18.6 - END STAGE RENAL DISEASE
--- NOTE | 2017-06-03 09:51 | PN ---
Progress Note, Physician Chief Complaint: intubated and sedated tele neg History of Present Illness: 56F w/ DM, HTN, s/p CABG 03/2017 after NSTEMI at [facility] with Dr. Martines MVR and TVR , ESRD on Hemodialysis (M/W/F) and PVD, who presented from [facility] for rectal bleeding. She was severely anemic and hypotensive. SP multiple PRBC and on Nor- epi, now off all pressors adn inotropes. Took aspirin, but no other AC. coumadin was stopped on 05/11. echo 05/22/17 mod glob HK ef30% mild mr severe TR - Current Medication List Current Medications: Active Medications Albuterol/Ipratropium (Duoneb -) 1 amp NEB Q4HPO [facility] Last Admin: 06/03/17 09:34 Dose: 1 amp Amino Acids (Prosource No Carb Liquid Pkt) 30 ml PO DAILY [facility] Last Admin: 06/02/17 10:40 Dose: 30 ml Calcitriol (Rocaltrol -) 0.25 mcg PO DAILY [facility] Last Admin: 06/02/17 10:40 Dose: 0.25 mcg Chlorhexidine Gluconate (Hibiclens For Decolonization -) 1 applic TP HS [facility] Last Admin: 06/02/17 21:35 Dose: 1 applic Gabapentin (Neurontin -) 100 mg NGT TID [facility] Last Admin: 06/03/17 06:04 Dose: 100 mg Hydrocortisone Sodium Succinate (Solu-Cortef -) 100 mg IVPB Q8H-IV [facility] Last Admin: 06/03/17 03:00 Dose: 100 mg Meropenem 500 mg/ Dextrose 100 mls @ 200 mls/hr IVPB BID [facility] Last Admin: 06/02/17 21:34 Dose: 200 mls/hr Propofol (Diprivan -) 1,000,000 mcg in 100 mls @ 2.754 mls/hr IVPB TITR [facility]; 5 MCG/KG/MIN PRN Reason: Protocol Last Admin: 06/03/17 06:07 Dose: 20 mcg/kg/min, 11.017 mls/hr Insulin Aspart (Novolog Vial Sliding Scale -) 1 vial SQ ACHS [facility] PRN Reason: Protocol Last Admin: 06/03/17 06:04 Dose: 2 units Midodrine (Proamatine -) 5 mg PO TID-MID [facility] Last Admin: 06/02/17 17:35 Dose: 5 mg Mometasone Furoate (Asmanex 220mcg -) 1 puff IH HS [facility] Last Admin: 06/02/17 21:34 Dose: Not Given Morphine Sulfate (Morphine Sulfate) 2 mg IVPUSH Q6H PRN PRN Reason: PAIN LEVEL 1-5 Last Admin: 05/26/17 18:36 Dose: 2 mg Multivit/Ca Carb/B Cmplx/FA/Prenat (Nephro-Pancho -) 1 tablet PO DAILY [facility] Last Admin: 06/02/17 10:39 Dose: 1 tablet Pantoprazole Sodium (Protonix Iv) 40 mg IVPUSH BID [facility] Last Admin: 06/02/17 21:34 Dose: 40 mg - Objective Vital Signs: Vital Signs Temperature 97.0 F L 06/03/17 06:00 Pulse Rate 82 06/03/17 08:22 Respiratory Rate 15 06/03/17 09:00 Blood Pressure 112/53 06/03/17 08:00 O2 Sat by Pulse Oximetry (%) 100 06/03/17 09:00 Constitutional: Yes: No Distress HENT: Yes: Atraumatic, Normocephalic Neck: Yes: Trachea Midline Cardiovascular: Yes: Regular Rate and Rhythm Respiratory: Yes: Mechanically Ventilated Gastrointestinal: Yes: Normal Bowel Sounds, Soft Extremities: Yes: Erythema Edema: LLE: 3+, RLE: 3+ Peripheral Pulses WNL: Yes Labs: CBC, BMP 06/01/17 05:40 06/03/17 05:40 INR, PTT INR 1.11 (0.82-1.09) 06/01/17 05:40 Fibrinogen 134.0 mg/dL (238-498) L 06/01/17 05:40 Problem List - Problems (1) CAD (coronary artery disease) Assessment/Plan: Now off of pressors and inotropes. Elevated troponin likely due to demand from shock. Not a candidate for further cardiac testing. Conservative cardiac care. Volume overloaded. HD ultrafiltration for volume removal. No AC as admitted with severe anemia and also with thrombocytopenia and recent bleed requiring transfusion. awaiting tracheostomy later this week. Prognosis remains critical. continue vent management per ICU, antibiotics per ID. will see prn. Code(s): I25.10 - ATHSCL HEART DISEASE OF [place] CORONARY ARTERY W/O ANG PCTRS
[2017-06-03] MEDS: VITAMIN B COMP W-C 1 EA TABLET PO SCH (09:53)
[2017-06-03] MEDS: AMINO ACIDS/PROTEIN HYDROLYS 30 ML LIQUID.PKT PO SCH (09:54)
[2017-06-03] MEDS: PANTOPRAZOLE SODIUM 40 MG VIAL IVPUSH SCH ×2 (09:54→22:21)
[2017-06-03] MEDS: MIDODRINE HCL 5 MG TABLET PO SCH ×3 (09:54→18:36)
[2017-06-03] MEDS: CALCITRIOL 0.25 MCG CAPSULE (FP) PO SCH (09:55)
--- NOTE | 2017-06-03 12:49 | PN ---
Progress Note (short form) - Note Progress Note: patient seen and examined in ICU. chart reviewed Overall condition same. Remains intubated Opens eyes Vital Signs Temp 96.5 F L 06/03/17 10:00 Pulse 83 06/03/17 10:00 Resp 15 06/03/17 11:05 BP 110/53 06/03/17 10:00 Pulse Ox 100 06/03/17 09:00 Intake & Output 06/02/17 06/03/17 06/03/17 23:59 11:59 23:59 Intake Total 703 244.2 Output Total 0 Balance 703 244.2 Weight 194 lb 4 oz Intake: IV 53 74.2 DIPRIVAN - 1,000,000 mcg 53 74.2 In 100 ml @ 5 MCG/KG/MIN 2.754 mls/hr IVPB TITR [facility] Rx#:[id number] IVPB 200 Tube Feeding 100 140 Tube Irrigant 350 30 Output: Urine 0 Void 0 Other: Voiding Method Diaper Bowel Movement Yes: flexiseal # Bowel Movements 1 Weight Measurement Method Built in [facility] Active Medications Albuterol/Ipratropium (Duoneb -) 1 amp NEB Q4HPO [facility] Last Admin: 06/03/17 09:34 Dose: 1 amp Amino Acids (Prosource No Carb Liquid Pkt) 30 ml PO DAILY [facility] Last Admin: 06/03/17 09:54 Dose: 30 ml Calcitriol (Rocaltrol -) 0.25 mcg PO DAILY [facility] Last Admin: 06/03/17 09:55 Dose: 0.25 mcg Chlorhexidine Gluconate (Hibiclens For Decolonization -) 1 applic TP HS [facility] Last Admin: 06/02/17 21:35 Dose: 1 applic Gabapentin (Neurontin -) 100 mg NGT TID [facility] Last Admin: 06/03/17 06:04 Dose: 100 mg Hydrocortisone Sodium Succinate (Solu-Cortef -) 100 mg IVPB Q8H-IV [facility] Last Admin: 06/03/17 09:55 Dose: 100 mg Propofol (Diprivan -) 1,000,000 mcg in 100 mls @ 2.754 mls/hr IVPB TITR [facility]; 5 MCG/KG/MIN PRN Reason: Protocol Last Admin: 06/03/17 12:01 Dose: 20 mcg/kg/min, 11.017 mls/hr Insulin Aspart (Novolog Vial Sliding Scale -) 1 vial SQ ACHS [facility] PRN Reason: Protocol Last Admin: 06/03/17 12:33 Dose: 2 units Midodrine (Proamatine -) 5 mg PO TID-MID [facility] Last Admin: 06/03/17 09:54 Dose: 5 mg Mometasone Furoate (Asmanex 220mcg -) 1 puff IH HS [facility] Last Admin: 06/02/17 21:34 Dose: Not Given Morphine Sulfate (Morphine Sulfate) 2 mg IVPUSH Q6H PRN PRN Reason: PAIN LEVEL 1-5 Last Admin: 05/26/17 18:36 Dose: 2 mg Multivit/Ca Carb/B Cmplx/FA/Prenat (Nephro-Pancho -) 1 tablet PO DAILY [facility] Last Admin: 06/03/17 09:53 Dose: 1 tablet Pantoprazole Sodium (Protonix Iv) 40 mg IVPUSH BID [facility] Last Admin: 06/03/17 09:54 Dose: 40 mg CBC, BMP 06/01/17 05:40 06/03/17 05:40 Microbiology 05/29/17 10:30 Blood Culture - Final Blood - Peripheral Venous NO GROWTH AFTER 5 DAYS INCUBATION 05/29/17 10:45 Gram Stain - Final Sputum - Endotrachea Suction/Ventilator Sputum Culture - Final Stenotrophomon.(X.)Maltophilia Physical Exam Constitutional: Yes: orally intubated. Neck: Yes: Other-- central line/ ngt + Cardiovascular: Yes: Regular Rate and Rhythm Respiratory: Yes: Diminished Gastrointestinal: Yes: Soft Wound/Incision: Yes: Other (dry gangrene) Generalized anasarca + Assessment/Plan sepsis- GI bleed respiratory failure recent CABG-bioMVR/TVR esrd--on hemodialysis severe PAD with dry gangrene of both legs thrombocytopenia- hypovolemic shock. meds reviewed Continue present care Antibiotics per i/d-- off now discussed with ICU Attending again today-- Dr. Appiah. Central line to be placed transfuse prn. monitor bgm. weaning as tolerated. Overall condition remains poor. had family meeting yesterday--- patient remains full code Discussed with the ICU--resident- Dr. Downs also. Will follow Problem List - Problems (1) Respiratory failure Code(s): J96.90 - RESPIRATORY FAILURE, UNSP, UNSP W HYPOXIA OR HYPERCAPNIA (2) Coagulopathy Code(s): D68.9 - COAGULATION DEFECT, UNSPECIFIED (3) GI bleed Code(s): K92.2 - GASTROINTESTINAL HEMORRHAGE, UNSPECIFIED (4) Gangrene Code(s): I96 - GANGRENE, NOT ELSEWHERE CLASSIFIED (5) Hx of CABG Code(s): Z95.1 - PRESENCE OF AORTOCORONARY BYPASS GRAFT
--- NOTE | 2017-06-03 14:09 | PROC ---
Procedure Note Procedure: Procedure ultimately not successful due to stricture of vasculature. Line not able to be placed. Central Line Insertion Indication: Other Central Line: Triple Lumen Catheter Anesthesia: 1% Lidocaine Sterile Technique: Yes Ultrasound Guided Assistance: Yes Position: Right Internal Jugular (pt recently requiring pressors, though not currently)
--- NOTE | 2017-06-03 14:15 | PN ---
Teaching Attending Note Name of Resident: Casandra Parry ATTENDING PHYSICIAN STATEMENT I saw and evaluated the patient. I reviewed the resident's note and discussed the case with the resident. I agree with the resident's findings and plan as documented. SUBJECTIVE: Patient seen and examined in the ICU. Remains intubated, sedated. Remains off pressors. R IJ TLC attempted, guide wire not able to be passed due to vascular strictures. Procedure terminated. Intake & Output 05/31/17 06/01/17 06/02/17 06/03/17 23:59 23:59 23:59 23:59 Intake Total 1369.9 883.4 943 244.2 Output Total 0 0 Balance 1369.9 883.4 943 244.2 Weight 205 lb 8 oz 203 lb 3.2 oz 203 lb 8 oz 194 lb 4 oz Last Vital Signs Temp Pulse Resp BP Pulse Ox 96.4 F L 73 21 106/50 100 06/03/17 14:00 06/03/17 14:00 06/03/17 14:06 06/03/17 14:00 06/03/17 14:02 Active Medications Albuterol/Ipratropium (Duoneb -) 1 amp NEB Q4HPO [facility] Last Admin: 06/03/17 14:07 Dose: 1 amp Amino Acids (Prosource No Carb Liquid Pkt) 30 ml PO DAILY [facility] Last Admin: 06/03/17 09:54 Dose: 30 ml Calcitriol (Rocaltrol -) 0.25 mcg PO DAILY [facility] Last Admin: 06/03/17 09:55 Dose: 0.25 mcg Chlorhexidine Gluconate (Hibiclens For Decolonization -) 1 applic TP HS [facility] Last Admin: 06/02/17 21:35 Dose: 1 applic Gabapentin (Neurontin -) 100 mg NGT TID [facility] Last Admin: 06/03/17 06:04 Dose: 100 mg Hydrocortisone Sodium Succinate (Solu-Cortef -) 100 mg IVPB Q8H-IV [facility] Last Admin: 06/03/17 09:55 Dose: 100 mg Propofol (Diprivan -) 1,000,000 mcg in 100 mls @ 2.754 mls/hr IVPB TITR [facility]; 5 MCG/KG/MIN PRN Reason: Protocol Last Admin: 06/03/17 12:01 Dose: 20 mcg/kg/min, 11.017 mls/hr Insulin Aspart (Novolog Vial Sliding Scale -) 1 vial SQ ACHS [facility] PRN Reason: Protocol Last Admin: 06/03/17 12:33 Dose: 2 units Midodrine (Proamatine -) 5 mg PO TID-MID [facility] Last Admin: 06/03/17 09:54 Dose: 5 mg Mometasone Furoate (Asmanex 220mcg -) 1 puff IH HS [facility] Last Admin: 06/02/17 21:34 Dose: Not Given Morphine Sulfate (Morphine Sulfate) 2 mg IVPUSH Q6H PRN PRN Reason: PAIN LEVEL 1-5 Last Admin: 05/26/17 18:36 Dose: 2 mg Multivit/Ca Carb/B Cmplx/FA/Prenat (Nephro-Pancho -) 1 tablet PO DAILY [facility] Last Admin: 06/03/17 09:53 Dose: 1 tablet Pantoprazole Sodium (Protonix Iv) 40 mg IVPUSH BID [facility] Last Admin: 06/03/17 09:54 Dose: 40 mg Gen: intubated, sedated, +anasarca Heart: RRR Lung: decreased breath sounds at the bases Abd: soft, nontender Ext: + edema Laboratory Results - last 24 hr 06/02/17 06/02/17 06/02/17 13:30 18:10 22:22 Sodium 136 Potassium 3.2 L Chloride 97 L Carbon Dioxide 25 Anion Gap 14 BUN 36 H Creatinine 2.5 H Creat Clearance w eGFR 19.78 POC Glucometer 143.69703 154.25739 Random Glucose 117 H Calcium 7.4 L Total Bilirubin 1.8 H AST 72 H ALT 35 Alkaline Phosphatase 89 Total Protein 4.9 L Albumin 1.9 L 06/03/17 05:40 Sodium 137 Potassium 3.4 L Chloride 99 Carbon Dioxide 26 Anion Gap 12 BUN 28 H Creatinine 2.0 H Creat Clearance w eGFR 25.59 POC Glucometer Random Glucose 135 H Calcium 7.5 L Total Bilirubin 1.9 H AST 72 H ALT 39 Alkaline Phosphatase 84 Total Protein 5.3 L Albumin 2.6 L A/P Acute Hypoxic Respiratory Failure Shock - ?Septic vs Cardiogenic GI Bleed +Troponins likely Demand Ischemia LV Systolic Dysfunction Volume Overload Thrombocytopenia Coagulopathy Gangrene CAD s/p CABG ESRD on HD HTN DM - Remains off ABX - monitoring off pressors/inotropes, maintain MAP >65 - HD per renal with ultrafiltration - Taper steroids - Normal transfusion thresholds - hold sedation to assess mental status - SBTs as tolerated - enteral feeds - DVT/GI prophylaxis - continue ICU monitoring Dr Lozada Critical care time spent in reviewing chart, evaluating patient and formulating plan 35 min
--- NOTE | 2017-06-03 15:16 | PN ---
Physical Exam: SUBJECTIVE: Patient seen and examined in the ICU. Pt remains intubated and sedated, and looks comfortable. Pt remains off pressors. R IJ TLC attempted, guide wire not able to be passed due to vascular strictures. Procedure terminated. OBJECTIVE: Vital Signs Period Temp Pulse Resp BP Sys/Ceron Pulse Ox Last 24 Hr 96.4 F-97.0 F 73-102 14-21 90-117/44-55 99-100 GENERAL: intubated, sedated and comfortable looking NECK: supple, trachea midline. Central line in Left IJ present. LUNGS: Breath sounds equal, clear to auscultation bilaterally, no wheezes, no crackles, no accessory muscle use. HEART: Regular rate and rhythm, S1, S2 without murmur, rub or gallop. ABDOMEN: Soft, nondistended, normoactive bowel sounds. EXTREMITIES: susan gangrenous changes to feet. 4+ pitting edema to susan LE. Anasarca persists throughout. Laboratory Results - last 24 hr 06/02/17 06/02/17 06/03/17 18:10 22:22 05:40 Sodium 137 Potassium 3.4 L Chloride 99 Carbon Dioxide 26 Anion Gap 12 BUN 28 H Creatinine 2.0 H Creat Clearance w eGFR 25.59 POC Glucometer 143.65696 154.61309 Random Glucose 135 H Calcium 7.5 L Total Bilirubin 1.9 H AST 72 H ALT 39 Alkaline Phosphatase 84 Total Protein 5.3 L Albumin 2.6 L Active Medications Generic Name Dose Route Start Last Admin Trade Name Freq PRN Reason Stop Dose Admin Albuterol/Ipratropium 1 amp 05/21/17 18:00 06/03/17 14:07 Duoneb - NEB 1 amp Q4HPO [facility] Administration Amino Acids 30 ml 05/26/17 10:00 06/03/17 09:54 Prosource No Carb Liquid Pkt PO 30 ml DAILY [facility] Administration Calcitriol 0.25 mcg 05/23/17 10:45 06/03/17 09:55 Rocaltrol - PO 0.25 mcg DAILY [facility] Administration Chlorhexidine Gluconate 1 applic 05/21/17 22:00 06/02/17 21:35 Hibiclens For Decolonization - TP 1 applic HS [facility] Administration Gabapentin 100 mg 05/26/17 22:00 06/03/17 15:03 Neurontin - NGT 100 mg TID [facility] Administration Hydrocortisone Sodium Succinate 50 mg 06/03/17 18:00 Solu-Cortef - IVPB Q8H-IV [facility] Propofol 1,000,000 mcg in 100 mls @ 2.754 mls/hr 05/27/17 11:15 06/03/17 12: 01 Diprivan - IVPB 20 mcg/kg/min TITR [facility] 11.017 mls/hr Protocol Administration 5 MCG/KG/MIN Insulin Aspart 1 vial 05/22/17 22:00 06/03/17 12:33 Novolog Vial Sliding Scale - SQ 2 units ACHS [facility] Administration Protocol Midodrine 5 mg 05/21/17 23:15 06/03/17 15:03 Proamatine - PO 5 mg TID-MID [facility] Administration Mometasone Furoate 1 puff 05/21/17 22:00 06/02/17 21:34 Asmanex 220mcg - IH Not Given HS [facility] Morphine Sulfate 2 mg 05/26/17 15:27 05/26/17 18:36 Morphine Sulfate IVPUSH 2 mg Q6H PRN Administration PAIN LEVEL 1-5 Multivit/Ca Carb/B Cmplx/FA/Prenat 1 tablet 05/22/17 10:00 06/03/17 09:53 Nephro-Pancho - PO 1 tablet DAILY [facility] Administration Pantoprazole Sodium 40 mg 05/25/17 10:00 06/03/17 09:54 Protonix Iv IVPUSH 40 mg BID [facility] Administration IMAGIN06/03/17 CXR -> no PTX. Left retrocardiac infiltrate noted. Congestive changes resolving. ASSESSMENT/PLAN: 56F with PMH of DM, htn, IA (s/p CABG 03/2017), ESRD (on HD [facility]), and hemorrhoids , admitted to the ICU with septic shock. # shock - possibly 2/2 septic vs cardiogenic - ID (Dr. Collins) recs appreciated: Day 11 of IV Meropenem, D/Nahum today - blood cultures (-) x 5 days - off pressors now, maintain MAP > 65 - continue Midodrine # acute hypoxic respiratory failure - intubated on vent - taper steroids - spontaneous breathing trials as tolerated to assess mental status - hold sedation to assess mental status - continue duonebs and Asmanex # CV: CAD (s/p CABG) and systolic CHF - Cardiology (Dr. Stapleton) recs appreciated: no AC 2/2 severe anemia, thrombocytopenia, and recent bleed requiring transfusion # ESRD - Nephrology (Dr. Plummer) recs appreciated: HD planned for tomorrow - volume overload - Cr improved from yesterday # GI bleed - likely 2/2 hemorrhoids - hgb stable - transfuse as needed # DM - BGMs - SSI - continue Neurontin # dry gangrene to susan feet - continue to monitor # FEN - Fluids: enteral nutrition - Electrolytes: hypokalemia repleted with K-dur 20 meq oral liquid via NGT, continue to monitor - Nutrition: Nepro to goal of 30 ml/hr x 24 hrs, Prosource 30ml daily # Prophylaxis - DVT chemoprophylaxis held 2/2 thrombocytopenia and mechanical ppx held 2/2 PAD - GI ppx with Protonix #Dispo - Full Code Visit type - Emergency Visit Emergency Visit: Yes ED Registration Date: 05/21/17 Care time: The patient presented to the Emergency Department on the above date and was hospitalized for further evaluation of their emergent condition. - New Patient This patient is new to me today: No - Critical Care Critical Care patient: Yes Total Critical Care Time (in minutes): 45 Critical Care Statement: The care of this patient involved high complexity decision making to prevent further life threatening deterioration of the patient 's condition and/or to evaluate & treat vital organ system(s) failure or risk of failure.
--- NOTE | 2017-06-03 15:23 | PN ---
Progress Note, Physician History of Present Illness: Pt seen and examined at bedside. She remains in the ICU. Pt remains intubated. - Current Medication List Current Medications: Active Medications Albuterol/Ipratropium (Duoneb -) 1 amp NEB Q4HPO [facility] Last Admin: 06/03/17 14:07 Dose: 1 amp Amino Acids (Prosource No Carb Liquid Pkt) 30 ml PO DAILY [facility] Last Admin: 06/03/17 09:54 Dose: 30 ml Calcitriol (Rocaltrol -) 0.25 mcg PO DAILY [facility] Last Admin: 06/03/17 09:55 Dose: 0.25 mcg Chlorhexidine Gluconate (Hibiclens For Decolonization -) 1 applic TP HS [facility] Last Admin: 06/02/17 21:35 Dose: 1 applic Gabapentin (Neurontin -) 100 mg NGT TID [facility] Last Admin: 06/03/17 15:03 Dose: 100 mg Hydrocortisone Sodium Succinate (Solu-Cortef -) 50 mg IVPB Q8H-IV [facility] Propofol (Diprivan -) 1,000,000 mcg in 100 mls @ 2.754 mls/hr IVPB TITR [facility]; 5 MCG/KG/MIN PRN Reason: Protocol Last Admin: 06/03/17 12:01 Dose: 20 mcg/kg/min, 11.017 mls/hr Insulin Aspart (Novolog Vial Sliding Scale -) 1 vial SQ ACHS [facility] PRN Reason: Protocol Last Admin: 06/03/17 12:33 Dose: 2 units Midodrine (Proamatine -) 5 mg PO TID-MID [facility] Last Admin: 06/03/17 15:03 Dose: 5 mg Mometasone Furoate (Asmanex 220mcg -) 1 puff IH HS [facility] Last Admin: 06/02/17 21:34 Dose: Not Given Morphine Sulfate (Morphine Sulfate) 2 mg IVPUSH Q6H PRN PRN Reason: PAIN LEVEL 1-5 Last Admin: 05/26/17 18:36 Dose: 2 mg Multivit/Ca Carb/B Cmplx/FA/Prenat (Nephro-Pancho -) 1 tablet PO DAILY [facility] Last Admin: 06/03/17 09:53 Dose: 1 tablet Pantoprazole Sodium (Protonix Iv) 40 mg IVPUSH BID [facility] Last Admin: 06/03/17 09:54 Dose: 40 mg - Objective Vital Signs: Vital Signs Temperature 96.4 F L 06/03/17 14:00 Pulse Rate 73 06/03/17 14:00 Respiratory Rate 21 06/03/17 14:06 Blood Pressure 106/50 06/03/17 14:00 O2 Sat by Pulse Oximetry (%) 100 06/03/17 14:02 Constitutional: Yes: Calm Eyes: Yes: Conjunctiva Clear HENT: Yes: Atraumatic Cardiovascular: Yes: S1, S2 Respiratory: Yes: Mechanically Ventilated Gastrointestinal: Yes: Soft Genitourinary: Yes: Incontinence Musculoskeletal: Yes: Muscle Weakness Edema: Yes Edema: LUE: 1+, RUE: 1+ Integumentary: Yes: Other (gangrene) Neurological: Yes: Lethargy Labs: CBC, BMP 06/01/17 05:40 06/03/17 05:40 INR, PTT INR 1.11 (0.82-1.09) 06/01/17 05:40 Fibrinogen 134.0 mg/dL (238-498) L 06/01/17 05:40 - ....Imaging Chest X-ray: Report Reviewed Problem List - Problems (1) ESRD (end stage renal disease) Code(s): N18.6 - END STAGE RENAL DISEASE (2) CAD (coronary artery disease) Code(s): I25.10 - ATHSCL HEART DISEASE OF [place] CORONARY ARTERY W/O ANG PCTRS Qualifiers: Coronary Disease-Associated Artery/Lesion type: [place] artery Associated angina: without angina (3) Hx of CABG Code(s): Z95.1 - PRESENCE OF AORTOCORONARY BYPASS GRAFT (4) Anemia Code(s): D64.9 - ANEMIA, UNSPECIFIED (5) GI bleed Code(s): K92.2 - GASTROINTESTINAL HEMORRHAGE, UNSPECIFIED Assessment/Plan Current Medications Generic Name Dose Route Start Last Admin Trade Name Freq PRN Reason Stop Dose Admin Albuterol/Ipratropium 1 amp 05/21/17 18:00 06/03/17 14:07 Duoneb - NEB 1 amp Q4HPO [facility] Administration Amino Acids 30 ml 05/26/17 10:00 06/03/17 09:54 Prosource No Carb Liquid Pkt PO 30 ml DAILY [facility] Administration Calcitriol 0.25 mcg 05/23/17 10:45 06/03/17 09:55 Rocaltrol - PO 0.25 mcg DAILY [facility] Administration Chlorhexidine Gluconate 1 applic 05/21/17 22:00 06/02/17 21:35 Hibiclens For Decolonization - TP 1 applic HS [facility] Administration Gabapentin 100 mg 05/26/17 22:00 06/03/17 15:03 Neurontin - NGT 100 mg TID [facility] Administration Hydrocortisone Sodium Succinate 50 mg 06/03/17 18:00 Solu-Cortef - IVPB Q8H-IV [facility] Propofol 1,000,000 mcg in 100 mls @ 2.754 mls/hr 05/27/17 11:15 06/03/17 12: 01 Diprivan - IVPB 20 mcg/kg/min TITR [facility] 11.017 mls/hr Protocol Administration 5 MCG/KG/MIN Insulin Aspart 1 vial 05/22/17 22:00 06/03/17 12:33 Novolog Vial Sliding Scale - SQ 2 units ACHS [facility] Administration Protocol Midodrine 5 mg 05/21/17 23:15 06/03/17 15:03 Proamatine - PO 5 mg TID-MID [facility] Administration Mometasone Furoate 1 puff 05/21/17 22:00 06/02/17 21:34 Asmanex 220mcg - IH Not Given HS [facility] Morphine Sulfate 2 mg 05/26/17 15:27 05/26/17 18:36 Morphine Sulfate IVPUSH 2 mg Q6H PRN Administration PAIN LEVEL 1-5 Multivit/Ca Carb/B Cmplx/FA/Prenat 1 tablet 05/22/17 10:00 06/03/17 09:53 Nephro-Pancho - PO 1 tablet DAILY [facility] Administration Pantoprazole Sodium 40 mg 05/25/17 10:00 06/03/17 09:54 Protonix Iv IVPUSH 40 mg BID [facility] Administration Impression 1. ESRD 2. GI bleed likely from hemorrhoids 3. hemorrhoids 4. anemia 5. CAD 6. s/p CABG 7. DM 8. hypotension 9. lactic acidosis 10. volume overload 11. resp failure requiring intubation Plan - will arrange for HD tomorrow - vent support - cxr reviewed - monitor pulse ox - keep in ICU - will follow Dr Plummer
[2017-06-03] MEDS ORDERED: SODIUM CHLORIDE 250 ML IV PRN (15:24)
[2017-06-03] MEDS: MOMETASONE FUROATE 220 MCG/IH INHALER IH SCH (22:20)
[2017-06-03] MEDS: CHLORHEXIDINE GLUCONATE 4% CLEANSER FOR DECOLONIZATION TP SCH (22:20)
[2017-06-04] MEDS: HYDROCORTISONE SOD SUCCINATE 100 MG/2 ML VIAL IVPB SCH ×3 (01:22→19:25)
[2017-06-04] MEDS: ALBUTEROL SO4 2.5/IPRATROPIUM 0.5 INH SOL 3 ML VIAL.NEB. NEB SCH ×6 (02:11→21:25)
[2017-06-04] MEDS: GABAPENTIN 100 MG CAPSULE (FP) NGT SCH ×3 (06:06→21:48)
[2017-06-04] MEDS: INSULIN SLIDING SCALE (NOVOLOG) 1 VIAL SQ SCH ×4 (06:47→22:24)
--- NOTE | 2017-06-04 07:01 | PN ---
Progress Note, Physician Chief Complaint: ID Intubated off pressors Opens her eyes when called Afebrile - Current Medication List Current Medications: Active Medications Albumin Human (Albumin Human 25%) 12.5 gm IVPB Q30M [facility] Stop: 06/04/17 17:01 Albuterol/Ipratropium (Duoneb -) 1 amp NEB Q4HPO [facility] Last Admin: 06/04/17 02:11 Dose: 1 amp Amino Acids (Prosource No Carb Liquid Pkt) 30 ml PO DAILY [facility] Last Admin: 06/03/17 09:54 Dose: 30 ml Calcitriol (Rocaltrol -) 0.25 mcg PO DAILY [facility] Last Admin: 06/03/17 09:55 Dose: 0.25 mcg Chlorhexidine Gluconate (Hibiclens For Decolonization -) 1 applic TP HS [facility] Last Admin: 06/03/17 22:20 Dose: 1 applic Gabapentin (Neurontin -) 100 mg NGT TID [facility] Last Admin: 06/04/17 06:06 Dose: 100 mg Hydrocortisone Sodium Succinate (Solu-Cortef -) 50 mg IVPB Q8H-IV [facility] Last Admin: 06/04/17 01:22 Dose: 50 mg Propofol (Diprivan -) 1,000,000 mcg in 100 mls @ 2.754 mls/hr IVPB TITR [facility]; 5 MCG/KG/MIN PRN Reason: Protocol Last Admin: 06/03/17 12:05 Dose: 20 mcg/kg/min, 11.017 mls/hr Sodium Chloride (Normal Saline -) 250 mls @ 3,000 mls/hr IV PRN PRN PRN Reason: Hypotension during Dialysis Stop: 06/04/17 15:24 Insulin Aspart (Novolog Vial Sliding Scale -) 1 vial SQ ACHS [facility] PRN Reason: Protocol Last Admin: 06/04/17 06:47 Dose: 4 units Midodrine (Proamatine -) 5 mg PO TID-MID [facility] Last Admin: 06/03/17 18:36 Dose: 5 mg Mometasone Furoate (Asmanex 220mcg -) 1 puff IH HS [facility] Last Admin: 06/03/17 22:20 Dose: Not Given Morphine Sulfate (Morphine Sulfate) 2 mg IVPUSH Q6H PRN PRN Reason: PAIN LEVEL 1-5 Last Admin: 05/26/17 18:36 Dose: 2 mg Multivit/Ca Carb/B Cmplx/FA/Prenat (Nephro-Pancho -) 1 tablet PO DAILY [facility] Last Admin: 06/03/17 09:53 Dose: 1 tablet Pantoprazole Sodium (Protonix Iv) 40 mg IVPUSH BID [facility] Last Admin: 06/03/17 22:21 Dose: 40 mg - Objective Vital Signs: Vital Signs Temperature 97 F L 06/04/17 06:00 Pulse Rate 86 06/04/17 06:00 Respiratory Rate 16 06/04/17 06:00 Blood Pressure 99/47 06/04/17 06:00 O2 Sat by Pulse Oximetry (%) 100 06/03/17 20:00 Cardiovascular: Yes: Regular Rate and Rhythm, S1, S2 Respiratory: Yes: WNL, Regular, CTA Bilaterally, Rhonchi Gastrointestinal: Yes: WNL, Normal Bowel Sounds, Soft. No: Tenderness Extremities: Yes: Other (Gangrene upper lower extr) Labs: CBC, BMP 06/01/17 05:40 INR, PTT INR 1.11 (0.82-1.09) 06/01/17 05:40 Fibrinogen 134.0 mg/dL (238-498) L 06/01/17 05:40 Problem List - Problems (1) Sepsis Code(s): A41.9 - SEPSIS, UNSPECIFIED ORGANISM (2) Anemia Code(s): D64.9 - ANEMIA, UNSPECIFIED (3) ESRD (end stage renal disease) Code(s): N18.6 - END STAGE RENAL DISEASE (4) GI bleed Code(s): K92.2 - GASTROINTESTINAL HEMORRHAGE, UNSPECIFIED Assessment/Plan Microbiology 05/29/17 10:45 Sputum - Endotrachea Suction/Ventilator Gram Stain - Final 05/29/17 10:45 Sputum - Endotrachea Suction/Ventilator Sputum Culture - Final Stenotrophomon.(X.)Maltophilia Laboratory Tests 06/01/17 06/03/17 06/04/17 05:40 05:40 06:05 WBC 6.8 Hgb 9.0 L Plt Count 88 L Neutrophils % 92.3 H Lymphocytes % 2.6 L BUN 28 H Pending Creatinine 2.0 H Pending Creat Clearance w eGFR 25.59 Pending Assessment Post sepsis syndrome Now off Meropenem Multiorgan failure ESRD Gangrene extremities Post valve replacement Plan At this point will follow on as needed basis Overall prognosis remains poor Hermelinda TELLES
[2017-06-04 07:02] LABS: CHLORIDE 98 mmol/L (98-107); POTASSIUM 3.2 mmol/L (3.5-5.1); SODIUM 137 mmol/L (136-145)
[2017-06-04 07:20] LABS: ALBUMIN 2.3 g/dl (3.4-5.0); ALK PHOS 137 U/L (45-117); ANION GAP 12 (8-16); BILIRUBIN,TOTAL 1.5 mg/dL (0.2-1.0); BLOOD UREA NITROGEN 39 mg/dL (7-18); CALCIUM 7.6 mg/dL (8.5-10.1); CO2 27 mmol/L (21-32); CREATININE 2.4 mg/dL (0.55-1.02); GLUCOSE,RANDOM 164 mg/dL (74-106); MAGNESIUM 1.7 mg/dL (1.8-2.4); PHOSPHOROUS 3.8 mg/dL (2.5-4.9); SGOT/AST 44 U/L (15-37); SGPT/ALT 31 U/L (12-78); TOT PROT 5.2 g/dl (6.4-8.2)
--- NOTE | 2017-06-04 08:34 | PN ---
Physical Exam: SUBJECTIVE: Patient seen and examined in the ICU. Pt remains intubated, off sedation. Pt drowsy but arousable to verbal stimuli and able to follow simple commands (ex: blink twice). Pt remains off pressors. OBJECTIVE: Vital Signs Period Temp Pulse Resp BP Sys/Ceron Pulse Ox Last 24 Hr 96.4 F-97.8 F 73-86 14-21 96-112/47-53 97-100 GENERAL: intubated, off sedation. Drowsy but arousable. LUNGS: Breath sounds equal, clear to auscultation bilaterally, no wheezes, no crackles, no accessory muscle use. HEART: Regular rate and rhythm, S1, S2 without murmur, rub or gallop. ABDOMEN: Soft, nontender, nondistended, normoactive bowel sounds. NEURO: Able to follow simple commands (ex: blink twice). Able to nod/shake head to answer yes/no questions, though response is minimal. DELMY. Pt unable to follow my finger to assess extraocular muscles. Sensation intact to susan hands, but no sensation to susan LE (even proximal to knees). Pt unable to squeeze hands or move any extremities. EXTREMITIES: susan gangrenous changes to feet. 4+ pitting edema to susan LE. Anasarca persists throughout. Laboratory Results - last 24 hr 06/03/17 06/03/17 06/03/17 05:38 12:30 18:25 Sodium Potassium Chloride Carbon Dioxide Anion Gap BUN Creatinine Creat Clearance w eGFR POC Glucometer [phone] 245.19909 Random Glucose Calcium Phosphorus Magnesium Total Bilirubin AST ALT Alkaline Phosphatase Total Protein Albumin 06/03/17 06/04/17 06/04/17 22:27 06:05 06:44 Sodium 137 Potassium 3.2 L Chloride 98 Carbon Dioxide 27 Anion Gap 12 BUN 39 H Creatinine 2.4 H Creat Clearance w eGFR 20.73 POC Glucometer 219.31407 226.71145 Random Glucose 164 H Calcium 7.6 L Phosphorus 3.8 Magnesium 1.7 L Total Bilirubin 1.5 H D AST 44 H ALT 31 Alkaline Phosphatase 137 H Total Protein 5.2 L Albumin 2.3 L Active Medications Generic Name Dose Route Start Last Admin Trade Name Freq PRN Reason Stop Dose Admin Albumin Human 12.5 gm 06/04/17 15:30 Albumin Human 25% IVPB 06/04/17 17:01 Q30M RUEL Albuterol/Ipratropium 1 amp 05/21/17 18:00 06/04/17 06:00 Duoneb - NEB 1 amp Q4HPO RUEL Administration Amino Acids 30 ml 05/26/17 10:00 06/03/17 09:54 Prosource No Carb Liquid Pkt PO 30 ml DAILY [facility] Administration Calcitriol 0.25 mcg 05/23/17 10:45 06/03/17 09:55 Rocaltrol - PO 0.25 mcg DAILY [facility] Administration Chlorhexidine Gluconate 1 applic 05/21/17 22:00 06/03/17 22:20 Hibiclens For Decolonization - TP 1 applic HS [facility] Administration Gabapentin 100 mg 05/26/17 22:00 06/04/17 06:06 Neurontin - NGT 100 mg TID RU[facility] Administration Hydrocortisone Sodium Succinate 50 mg 06/03/17 18:00 06/04/17 01:22 Solu-Cortef - IVPB 50 mg Q8H-IV [facility] Administration Propofol 1,000,000 mcg in 100 mls @ 2.754 mls/hr 05/27/17 11:15 06/03/17 12: 05 Diprivan - IVPB 20 mcg/kg/min TITR [facility] 11.017 mls/hr Protocol Administration 5 MCG/KG/MIN Sodium Chloride 250 mls @ 3,000 mls/hr 06/03/17 15:24 Normal Saline - IV 06/04/17 15:24 PRN PRN Hypotension during Dialysis Insulin Aspart 1 vial 05/22/17 22:00 06/04/17 06:47 Novolog Vial Sliding Scale - SQ 4 units ACHS RUEL Administration Protocol Magnesium Sulfate 1 gm 06/04/17 07:55 Magnesium Sulfate IVPB 06/04/17 07:56 ONCE ONE Midodrine 5 mg 05/21/17 23:15 06/03/17 18:36 Proamatine - PO 5 mg TID-MID [facility] Administration Mometasone Furoate 1 puff 05/21/17 22:00 06/03/17 22:20 Asmanex 220mcg - IH Not Given HS [facility] Morphine Sulfate 2 mg 05/26/17 15:27 05/26/17 18:36 Morphine Sulfate IVPUSH 2 mg Q6H PRN Administration PAIN LEVEL 1-5 Multivit/Ca Carb/B Cmplx/FA/Prenat 1 tablet 05/22/17 10:00 06/03/17 09:53 Nephro-Pancho - PO 1 tablet DAILY [facility] Administration Pantoprazole Sodium 40 mg 05/25/17 10:00 06/03/17 22:21 Protonix Iv IVPUSH 40 mg BID [facility] Administration Potassium Chloride 20 meq 06/04/17 10:00 Potassium Chloride Oral Liquid PO 06/04/17 22:01 BID RUEL IMAGIN06/04/17 CXR -> some congestive changes with some atelectasis at Left lung base noted. 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 # shock - possibly 2/2 septic vs cardiogenic - ID (Dr. Shen) recs appreciated: Post sepsis syndrome, now off Meropenem - off pressors now, monitor and maintain MAP > 65 - continue Midodrine # acute hypoxic respiratory failure - intubated on vent - taper steroids - spontaneous breathing trials as tolerated - hold sedation to assess mental status - continue duonebs and Asmanex # CV: CAD (s/p CABG) and systolic CHF - Cardiology (Dr. Stapleton) recs appreciated: no AC 2/2 severe anemia, thrombocytopenia, and recent bleed requiring transfusion # ESRD with HD - anuric - Nephrology (Dr. Plummer) recs appreciated: Albumin followed by HD scheduled for today - avoid nephrotoxic agents # GI bleed - likely 2/2 hemorrhoids - hgb stable - transfuse as needed # DM - BGMs - SSI - continue Neurontin # dry gangrene to susan feet - continue to monitor # electrolyte abnormalities - hypokalemia repleted with K-dur 20 meq oral liquid via NGT x 2 doses - hypomagnesemia repleted with Magnesium Sulfate 1g IVPB # FEN - Fluids: enteral nutrition - Electrolytes: continue to monitor - Nutrition: Nepro to goal of 30 ml/hr x 24 hrs, Prosource 30ml daily # Prophylaxis - DVT chemoprophylaxis held 2/2 thrombocytopenia and mechanical ppx held 2/2 PAD - GI ppx with Protonix #Dispo - Full Code Visit type - Emergency Visit Emergency Visit: Yes ED Registration Date: 05/21/17 Care time: The patient presented to the Emergency Department on the above date and was hospitalized for further evaluation of their emergent condition. - New Patient This patient is new to me today: No - Critical Care Critical Care patient: Yes Total Critical Care Time (in minutes): 40 Critical Care Statement: The care of this patient involved high complexity decision making to prevent further life threatening deterioration of the patient 's condition and/or to evaluate & treat vital organ system(s) failure or risk of failure.
[2017-06-04] MEDS ORDERED: MAGNESIUM SULF 50% (8.12 MEQ/2 ML-1 GM VIAL) IVPB ONE (09:00)
--- NOTE | 2017-06-04 10:07 | PN ---
Progress Note, Physician Chief Complaint: intubated opens her eyes off pressors - Current Medication List Current Medications: Active Medications Albumin Human (Albumin Human 25%) 12.5 gm IVPB Q30M [facility] Stop: 06/04/17 17:01 Albuterol/Ipratropium (Duoneb -) 1 amp NEB Q4HPO [facility] Last Admin: 06/04/17 09:02 Dose: 1 amp Amino Acids (Prosource No Carb Liquid Pkt) 30 ml PO DAILY [facility] Last Admin: 06/03/17 09:54 Dose: 30 ml Calcitriol (Rocaltrol -) 0.25 mcg PO DAILY [facility] Last Admin: 06/03/17 09:55 Dose: 0.25 mcg Chlorhexidine Gluconate (Hibiclens For Decolonization -) 1 applic TP HS [facility] Last Admin: 06/03/17 22:20 Dose: 1 applic Gabapentin (Neurontin -) 100 mg NGT TID [facility] Last Admin: 06/04/17 06:06 Dose: 100 mg Hydrocortisone Sodium Succinate (Solu-Cortef -) 50 mg IVPB Q8H-IV [facility] Last Admin: 06/04/17 01:22 Dose: 50 mg Propofol (Diprivan -) 1,000,000 mcg in 100 mls @ 2.754 mls/hr IVPB TITR RU[facility]; 5 MCG/KG/MIN PRN Reason: Protocol Last Admin: 06/03/17 12:05 Dose: 20 mcg/kg/min, 11.017 mls/hr Sodium Chloride (Normal Saline -) 250 mls @ 3,000 mls/hr IV PRN PRN PRN Reason: Hypotension during Dialysis Stop: 06/04/17 15:24 Insulin Aspart (Novolog Vial Sliding Scale -) 1 vial SQ ACHS RUEL PRN Reason: Protocol Last Admin: 06/04/17 06:47 Dose: 4 units Midodrine (Proamatine -) 5 mg PO TID-MID [facility] Last Admin: 06/03/17 18:36 Dose: 5 mg Mometasone Furoate (Asmanex 220mcg -) 1 puff IH HS [facility] Last Admin: 06/03/17 22:20 Dose: Not Given Morphine Sulfate (Morphine Sulfate) 2 mg IVPUSH Q6H PRN PRN Reason: PAIN LEVEL 1-5 Last Admin: 05/26/17 18:36 Dose: 2 mg Multivit/Ca Carb/B Cmplx/FA/Prenat (Nephro-Pancho -) 1 tablet PO DAILY [facility] Last Admin: 06/03/17 09:53 Dose: 1 tablet Pantoprazole Sodium (Protonix Iv) 40 mg IVPUSH BID [facility] Last Admin: 06/03/17 22:21 Dose: 40 mg Potassium Chloride (Potassium Chloride Oral Liquid) 20 meq PO BID [facility] Stop: 06/04/17 22:01 - Objective Vital Signs: Vital Signs Temperature 97 F L 06/04/17 06:00 Pulse Rate 85 06/04/17 08:22 Respiratory Rate 16 06/04/17 08:22 Blood Pressure 102/50 06/04/17 08:00 O2 Sat by Pulse Oximetry (%) 100 06/04/17 08:22 Constitutional: Yes: No Distress Cardiovascular: Yes: Regular Rate and Rhythm Respiratory: Yes: Diminished Gastrointestinal: Yes: Normal Bowel Sounds, Soft, Ascites. No: Tenderness Edema: Yes Labs: CBC, BMP 06/01/17 05:40 06/04/17 06:05 INR, PTT INR 1.11 (0.82-1.09) 06/01/17 05:40 Fibrinogen 134.0 mg/dL (238-498) L 06/01/17 05:40 Problem List - Problems (1) Anemia Code(s): D64.9 - ANEMIA, UNSPECIFIED (2) CAD (coronary artery disease) Code(s): I25.10 - ATHSCL HEART DISEASE OF [place] CORONARY ARTERY W/O ANG PCTRS Qualifiers: Coronary Disease-Associated Artery/Lesion type: [place] artery Associated angina: without angina (3) ESRD (end stage renal disease) Code(s): N18.6 - END STAGE RENAL DISEASE (4) GI bleed Code(s): K92.2 - GASTROINTESTINAL HEMORRHAGE, UNSPECIFIED (5) Gangrene Code(s): I96 - GANGRENE, NOT ELSEWHERE CLASSIFIED (6) H/O heart valve replacement with bioprosthetic valve Code(s): Z95.3 - PRESENCE OF XENOGENIC HEART VALVE (7) Hx of CABG Code(s): Z95.1 - PRESENCE OF AORTOCORONARY BYPASS GRAFT (8) Lower GI bleed Code(s): K92.2 - GASTROINTESTINAL HEMORRHAGE, UNSPECIFIED (9) Sepsis Code(s): A41.9 - SEPSIS, UNSPECIFIED ORGANISM Assessment/Plan A/P Hypovolemic shock GI bleeding ESRD on HD CAD , s/p CABG, MV and TV replacement AMS Gangrene of rt foot and left ring finger hypothermia-- on Solucortef thrombocytopenia -- off pressors -- weaning as tolerated -- CBC stable --off iv antibiotics -- cultures negative -- prognosis poor -- tracheostomy if unable to wean off vent
[2017-06-04] MEDS ORDERED: NOREPINEPHRINE BITARTRATE 4 MG/4 ML ML IV ONE (10:31)
--- NOTE | 2017-06-04 11:57 | PN ---
Teaching Attending Note Name of Resident: Casandra Parry ATTENDING PHYSICIAN STATEMENT I saw and evaluated the patient. I reviewed the resident's note and discussed the case with the resident. I agree with the resident's findings and plan as documented. SUBJECTIVE: Pt seen and examined in the ICU. Remains intubated, arousable off sedation, following commands. Currently being dialyzed with goal UF 3300mL. OBJECTIVE: Last Vital Signs Temp Pulse Resp BP Pulse Ox 97.3 F L 87 14 96/48 100 06/04/17 10:00 06/04/17 11:00 06/04/17 11:00 06/04/17 11:00 06/04/17 08:22 Intake & Output 06/01/17 06/02/17 06/03/17 06/04/17 23:59 23:59 23:59 23:59 Intake Total 883.4 943 1104.2 580 Output Total 0 0 Balance 883.4 943 1104.2 580 Weight 92.17 kg 92.306 kg 88.11 kg 88.541 kg Gen: intubated, awake Heart: RRR Lung: decreased breath sounds at the bases Abd: soft, nontender Ext: + edema CBC, BMP 06/01/17 05:40 06/04/17 06:05 Active Medications Albumin Human (Albumin Human 25%) 12.5 gm IVPB Q30M [facility] Stop: 06/04/17 17:01 Albuterol/Ipratropium (Duoneb -) 1 amp NEB Q4HPO [facility] Last Admin: 06/04/17 09:02 Dose: 1 amp Amino Acids (Prosource No Carb Liquid Pkt) 30 ml PO DAILY [facility] Last Admin: 06/03/17 09:54 Dose: 30 ml Calcitriol (Rocaltrol -) 0.25 mcg PO DAILY [facility] Last Admin: 06/03/17 09:55 Dose: 0.25 mcg Chlorhexidine Gluconate (Hibiclens For Decolonization -) 1 applic TP HS [facility] Last Admin: 06/03/17 22:20 Dose: 1 applic Gabapentin (Neurontin -) 100 mg NGT TID [facility] Last Admin: 06/04/17 06:06 Dose: 100 mg Hydrocortisone Sodium Succinate (Solu-Cortef -) 50 mg IVPB Q8H-IV [facility] Last Admin: 04/04/18 01:22 Dose: 50 mg Propofol (Diprivan -) 1,000,000 mcg in 100 mls @ 2.754 mls/hr IVPB TITR [facility]; 5 MCG/KG/MIN PRN Reason: Protocol Last Admin: 06/03/17 12:05 Dose: 20 mcg/kg/min, 11.017 mls/hr Sodium Chloride (Normal Saline -) 250 mls @ 3,000 mls/hr IV PRN PRN PRN Reason: Hypotension during Dialysis Stop: 06/04/17 15:24 Insulin Aspart (Novolog Vial Sliding Scale -) 1 vial SQ ACHS [facility] PRN Reason: Protocol Last Admin: 06/04/17 06:47 Dose: 4 units Midodrine (Proamatine -) 5 mg PO TID-MID [facility] Last Admin: 06/03/17 18:36 Dose: 5 mg Mometasone Furoate (Asmanex 220mcg -) 1 puff IH HS [facility] Last Admin: 06/03/17 22:20 Dose: Not Given Morphine Sulfate (Morphine Sulfate) 2 mg IVPUSH Q6H PRN PRN Reason: PAIN LEVEL 1-5 Last Admin: 05/26/17 18:36 Dose: 2 mg Multivit/Ca Carb/B Cmplx/FA/Prenat (Nephro-Pancho -) 1 tablet PO DAILY [facility] Last Admin: 06/03/17 09:53 Dose: 1 tablet Pantoprazole Sodium (Protonix Iv) 40 mg IVPUSH BID [facility] Last Admin: 06/03/17 22:21 Dose: 40 mg Potassium Chloride (Potassium Chloride Oral Liquid) 20 meq PO BID [facility] Stop: 06/04/17 22:01 ASSESSMENT AND PLAN: Acute Hypoxic Respiratory Failure Shock - ?Septic vs Cardiogenic GI Bleed +Troponins likely Demand Ischemia LV Systolic Dysfunction Volume Overload Thrombocytopenia Coagulopathy Gangrene CAD s/p CABG ESRD on HD HTN DM - completed empiric antibiotics - monitoring off pressors, inotropes, maintain MAP >65 - HD per renal with ultrafiltration - taper steroids - monitor platelets, coags, fibrinogen level - transfuse as needed - spontaneous breathing trials as tolerated - can wean more aggressively now that hemodynamics and volume status are improving - enteral feeds - DVT/GI prophylaxis - continue ICU monitoring critical care time spent in reviewing chart, evaluating patient and formulating plan 35 min
--- NOTE | 2017-06-04 12:25 | PN ---
Progress Note, Physician History of Present Illness: Pt seen and examined at bedside. She is awake at the moment. Pt is currently getting HD. She remains intubated. - Current Medication List Current Medications: Active Medications Albumin Human (Albumin Human 25%) 12.5 gm IVPB Q30M [facility] Stop: 06/04/17 17:01 Albuterol/Ipratropium (Duoneb -) 1 amp NEB Q4HPO [facility] Last Admin: 06/04/17 09:02 Dose: 1 amp Amino Acids (Prosource No Carb Liquid Pkt) 30 ml PO DAILY [facility] Last Admin: 06/03/17 09:54 Dose: 30 ml Calcitriol (Rocaltrol -) 0.25 mcg PO DAILY [facility] Last Admin: 06/03/17 09:55 Dose: 0.25 mcg Chlorhexidine Gluconate (Hibiclens For Decolonization -) 1 applic TP HS [facility] Last Admin: 06/03/17 22:20 Dose: 1 applic Gabapentin (Neurontin -) 100 mg NGT TID [facility] Last Admin: 06/04/17 06:06 Dose: 100 mg Hydrocortisone Sodium Succinate (Solu-Cortef -) 50 mg IVPB Q8H-IV [facility] Last Admin: 06/04/17 01:22 Dose: 50 mg Propofol (Diprivan -) 1,000,000 mcg in 100 mls @ 2.754 mls/hr IVPB TITR [facility]; 5 MCG/KG/MIN PRN Reason: Protocol Last Admin: 06/03/17 12:05 Dose: 20 mcg/kg/min, 11.017 mls/hr Sodium Chloride (Normal Saline -) 250 mls @ 3,000 mls/hr IV PRN PRN PRN Reason: Hypotension during Dialysis Stop: 06/04/17 15:24 Insulin Aspart (Novolog Vial Sliding Scale -) 1 vial SQ ACHS [facility] PRN Reason: Protocol Last Admin: 06/04/17 06:47 Dose: 4 units Midodrine (Proamatine -) 5 mg PO TID-MID [facility] Last Admin: 06/03/17 18:36 Dose: 5 mg Mometasone Furoate (Asmanex 220mcg -) 1 puff IH HS [facility] Last Admin: 06/03/17 22:20 Dose: Not Given Morphine Sulfate (Morphine Sulfate) 2 mg IVPUSH Q6H PRN PRN Reason: PAIN LEVEL 1-5 Last Admin: 05/26/17 18:36 Dose: 2 mg Multivit/Ca Carb/B Cmplx/FA/Prenat (Nephro-Pancho -) 1 tablet PO DAILY [facility] Last Admin: 06/03/17 09:53 Dose: 1 tablet Pantoprazole Sodium (Protonix Iv) 40 mg IVPUSH BID [facility] Last Admin: 06/03/17 22:21 Dose: 40 mg Potassium Chloride (Potassium Chloride Oral Liquid) 20 meq PO BID [facility] Stop: 06/04/17 22:01 - Objective Vital Signs: Vital Signs Temperature 97.3 F L 06/04/17 10:00 Pulse Rate 87 06/04/17 11:00 Respiratory Rate 14 06/04/17 11:00 Blood Pressure 96/48 06/04/17 11:00 O2 Sat by Pulse Oximetry (%) 100 06/04/17 08:22 Constitutional: Yes: Calm Eyes: Yes: Conjunctiva Clear Cardiovascular: Yes: S1, S2 Respiratory: Yes: Mechanically Ventilated Gastrointestinal: Yes: Soft Genitourinary: Yes: Incontinence Musculoskeletal: Yes: Muscle Weakness Edema: Yes Edema: LUE: 1+, RUE: 1+ Integumentary: Yes: Other (gangrene) Neurological: Yes: Other (awake) Labs: CBC, BMP 06/01/17 05:40 06/04/17 06:05 INR, PTT INR 1.11 (0.82-1.09) 06/01/17 05:40 Fibrinogen 134.0 mg/dL (238-498) L 06/01/17 05:40 Problem List - Problems (1) ESRD (end stage renal disease) Code(s): N18.6 - END STAGE RENAL DISEASE (2) CAD (coronary artery disease) Code(s): I25.10 - ATHSCL HEART DISEASE OF [place] CORONARY ARTERY W/O ANG PCTRS Qualifiers: Coronary Disease-Associated Artery/Lesion type: [place] artery Associated angina: without angina (3) Hx of CABG Code(s): Z95.1 - PRESENCE OF AORTOCORONARY BYPASS GRAFT (4) Anemia Code(s): D64.9 - ANEMIA, UNSPECIFIED (5) GI bleed Code(s): K92.2 - GASTROINTESTINAL HEMORRHAGE, UNSPECIFIED Assessment/Plan Current Medications Generic Name Dose Route Start Last Admin Trade Name Freq PRN Reason Stop Dose Admin Albumin Human 12.5 gm 06/04/17 15:30 Albumin Human 25% IVPB 06/04/17 17:01 Q30M RU[facility] Albuterol/Ipratropium 1 amp 05/21/17 18:00 06/04/17 09:02 Duoneb - NEB 1 amp Q4HPO [facility] Administration Amino Acids 30 ml 05/26/17 10:00 06/03/17 09:54 Prosource No Carb Liquid Pkt PO 30 ml DAILY [facility] Administration Calcitriol 0.25 mcg 05/23/17 10:45 06/03/17 09:55 Rocaltrol - PO 0.25 mcg DAILY [facility] Administration Chlorhexidine Gluconate 1 applic 05/21/17 22:00 06/03/17 22:20 Hibiclens For Decolonization - TP 1 applic HS [facility] Administration Gabapentin 100 mg 05/26/17 22:00 06/04/17 06:06 Neurontin - NGT 100 mg TID [facility] Administration Hydrocortisone Sodium Succinate 50 mg 06/03/17 18:00 06/04/17 01:22 Solu-Cortef - IVPB 50 mg Q8H-IV [facility] Administration Propofol 1,000,000 mcg in 100 mls @ 2.754 mls/hr 05/27/17 11:15 06/03/17 12: 05 Diprivan - IVPB 20 mcg/kg/min TITR [facility] 11.017 mls/hr Protocol Administration 5 MCG/KG/MIN Sodium Chloride 250 mls @ 3,000 mls/hr 06/03/17 15:24 Normal Saline - IV 06/04/17 15:24 PRN PRN Hypotension during Dialysis Insulin Aspart 1 vial 05/22/17 22:00 06/04/17 06:47 Novolog Vial Sliding Scale - SQ 4 units ACHS [facility] Administration Protocol Midodrine 5 mg 05/21/17 23:15 06/03/17 18:36 Proamatine - PO 5 mg TID-MID [facility] Administration Mometasone Furoate 1 puff 05/21/17 22:00 06/03/17 22:20 Asmanex 220mcg - IH Not Given HS [facility] Morphine Sulfate 2 mg 05/26/17 15:27 05/26/17 18:36 Morphine Sulfate IVPUSH 2 mg Q6H PRN Administration PAIN LEVEL 1-5 Multivit/Ca Carb/B Cmplx/FA/Prenat 1 tablet 05/22/17 10:00 06/03/17 09:53 Nephro-Pancho - PO 1 tablet DAILY [facility] Administration Pantoprazole Sodium 40 mg 05/25/17 10:00 06/03/17 22:21 Protonix Iv IVPUSH 40 mg BID [facility] Administration Potassium Chloride 20 meq 06/04/17 10:00 Potassium Chloride Oral Liquid PO 06/04/17 22:01 BID RUEL Impression 1. ESRD 2. GI bleed likely from hemorrhoids 3. hemorrhoids 4. anemia 5. CAD 6. s/p CABG 7. DM 8. hypotension 9. lactic acidosis 10. volume overload 11. resp failure requiring intubation Plan - pt currently getting HD - weaning as per pulmonary - will attempt to UF 3 liters today - there is a discrepancy between blood pressures with the cuff and with the a- line - monitor pulse ox - keep in ICU - will follow Dr Plummer
[2017-06-04] MEDS ORDERED: PT OWN MED DRAWER 7, Y5N ONE (13:30)
[2017-06-04] MEDS: PANTOPRAZOLE SODIUM 40 MG VIAL IVPUSH SCH ×2 (13:37→21:48)
[2017-06-04] MEDS: AMINO ACIDS/PROTEIN HYDROLYS 30 ML LIQUID.PKT PO SCH (13:37)
[2017-06-04] MEDS: POTASSIUM CHLORIDE ORAL LIQUID 20 MEQ/15 ML PO SCH ×2 (13:37→21:48)
[2017-06-04] MEDS: VITAMIN B COMP W-C 1 EA TABLET PO SCH (13:37)
[2017-06-04] MEDS: MIDODRINE HCL 5 MG TABLET PO SCH ×3 (13:38→19:23)
[2017-06-04] MEDS: CALCITRIOL 0.25 MCG CAPSULE (FP) PO SCH (13:38)
[2017-06-04] MEDS: PROPOFOL 1,000,000 MCG/100 ML VIAL IVPB SCH (14:00)
[2017-06-04] MEDS: ALBUMIN HUMAN 25% 12.5 GM/50 ML VIAL IVPB SCH ×3 (18:38→18:41)
[2017-06-04] MEDS: MOMETASONE FUROATE 220 MCG/IH INHALER IH SCH (21:48)
[2017-06-04] MEDS: CHLORHEXIDINE GLUCONATE 4% CLEANSER FOR DECOLONIZATION TP SCH (21:48)
[2017-06-05] MEDS: HYDROCORTISONE SOD SUCCINATE 100 MG/2 ML VIAL IVPB SCH ×3 (01:03→18:14)
[2017-06-05] MEDS: ALBUTEROL SO4 2.5/IPRATROPIUM 0.5 INH SOL 3 ML VIAL.NEB. NEB SCH ×6 (02:27→23:01)
[2017-06-05] MEDS: GABAPENTIN 100 MG CAPSULE (FP) NGT SCH ×3 (05:29→22:20)
[2017-06-05] MEDS: INSULIN SLIDING SCALE (NOVOLOG) 1 VIAL SQ SCH ×4 (06:24→22:20)
[2017-06-05 07:18] LABS: CHLORIDE 101 mmol/L (98-107); POTASSIUM 3.6 mmol/L (3.5-5.1); SODIUM 141 mmol/L (136-145)
[2017-06-05 07:26] LABS: ALBUMIN 2.6 g/dl (3.4-5.0); ALK PHOS 216 U/L (45-117); ANION GAP 13 (8-16); BILIRUBIN,TOTAL 1.7 mg/dL (0.2-1.0); BLOOD UREA NITROGEN 33 mg/dL (7-18); CALCIUM 8.2 mg/dL (8.5-10.1); CO2 27 mmol/L (21-32); CREATININE 2.1 mg/dL (0.55-1.02); GLUCOSE,RANDOM 172 mg/dL (74-106); MAGNESIUM 1.9 mg/dL (1.8-2.4); SGOT/AST 54 U/L (15-37); SGPT/ALT 38 U/L (12-78); TOT PROT 5.5 g/dl (6.4-8.2)
--- NOTE | 2017-06-05 10:45 | PN ---
Progress Note, Physician Chief Complaint: pt following simple commands no distress unable to wean - Current Medication List Current Medications: Active Medications Albuterol/Ipratropium (Duoneb -) 1 amp NEB Q4HPO [facility] Last Admin: 06/05/17 10:34 Dose: 1 amp Amino Acids (Prosource No Carb Liquid Pkt) 30 ml PO DAILY [facility] Last Admin: 06/04/17 13:37 Dose: 30 ml Calcitriol (Rocaltrol -) 0.25 mcg PO DAILY [facility] Last Admin: 06/04/17 13:38 Dose: 0.25 mcg Chlorhexidine Gluconate (Hibiclens For Decolonization -) 1 applic TP HS [facility] Last Admin: 06/04/17 21:48 Dose: 1 applic Gabapentin (Neurontin -) 100 mg NGT TID [facility] Last Admin: 06/05/17 05:29 Dose: 100 mg Hydrocortisone Sodium Succinate (Solu-Cortef -) 50 mg IVPB Q8H-IV [facility] Last Admin: 06/05/17 01:03 Dose: 50 mg Propofol (Diprivan -) 1,000,000 mcg in 100 mls @ 2.754 mls/hr IVPB TITR [facility]; 5 MCG/KG/MIN PRN Reason: Protocol Last Admin: 06/04/17 14:00 Dose: 5 mcg/kg/min, 2.754 mls/hr Insulin Aspart (Novolog Vial Sliding Scale -) 1 vial SQ ACHS [facility] PRN Reason: Protocol Last Admin: 06/05/17 06:24 Dose: 4 units Midodrine (Proamatine -) 5 mg PO TID-MID [facility] Last Admin: 06/04/17 19:23 Dose: 5 mg Mometasone Furoate (Asmanex 220mcg -) 1 puff IH HS [facility] Last Admin: 06/04/17 21:48 Dose: Not Given Morphine Sulfate (Morphine Sulfate) 2 mg IVPUSH Q6H PRN PRN Reason: PAIN LEVEL 1-5 Last Admin: 05/26/17 18:36 Dose: 2 mg Multivit/Ca Carb/B Cmplx/FA/Prenat (Nephro-Pancho -) 1 tablet PO DAILY [facility] Last Admin: 06/04/17 13:37 Dose: 1 tablet Pantoprazole Sodium (Protonix Iv) 40 mg IVPUSH BID [facility] Last Admin: 06/04/17 21:48 Dose: 40 mg - Objective Vital Signs: Vital Signs Temperature 98.9 F 06/05/17 06:00 Pulse Rate 90 06/05/17 08:33 Respiratory Rate 16 06/05/17 08:33 Blood Pressure 119/58 06/05/17 08:00 O2 Sat by Pulse Oximetry (%) 100 06/05/17 08:33 Constitutional: Yes: No Distress Cardiovascular: Yes: Regular Rate and Rhythm Respiratory: Yes: Diminished Gastrointestinal: Yes: Normal Bowel Sounds, Soft, Distention. No: Tenderness Extremities: Yes: Cyanosis Edema: No Labs: CBC, BMP 06/01/17 05:40 06/05/17 06:05 INR, PTT INR 1.11 (0.82-1.09) 06/01/17 05:40 Fibrinogen 134.0 mg/dL (238-498) L 06/01/17 05:40 Problem List - Problems (1) Anemia Code(s): D64.9 - ANEMIA, UNSPECIFIED (2) CAD (coronary artery disease) Code(s): I25.10 - ATHSCL HEART DISEASE OF [place] CORONARY ARTERY W/O ANG PCTRS Qualifiers: Coronary Disease-Associated Artery/Lesion type: [place] artery Associated angina: without angina (3) ESRD (end stage renal disease) Code(s): N18.6 - END STAGE RENAL DISEASE (4) GI bleed Code(s): K92.2 - GASTROINTESTINAL HEMORRHAGE, UNSPECIFIED (5) Gangrene Code(s): I96 - GANGRENE, NOT ELSEWHERE CLASSIFIED (6) H/O heart valve replacement with bioprosthetic valve Code(s): Z95.3 - PRESENCE OF XENOGENIC HEART VALVE (7) Hx of CABG Code(s): Z95.1 - PRESENCE OF AORTOCORONARY BYPASS GRAFT (8) Lower GI bleed Code(s): K92.2 - GASTROINTESTINAL HEMORRHAGE, UNSPECIFIED (9) Sepsis Code(s): A41.9 - SEPSIS, UNSPECIFIED ORGANISM Assessment/Plan A/P Hypovolemic shock GI bleeding ESRD on HD CAD , s/p CABG, MV and TV replacement AMS Gangrene of rt foot and left ring finger hypothermia-- on Solucortef thrombocytopenia -- off pressors --if unable to wean - will need trach -- CBC stable --off iv antibiotics -- cultures negative
[2017-06-05] MEDS: PANTOPRAZOLE SODIUM 40 MG VIAL IVPUSH SCH ×2 (11:00→22:20)
[2017-06-05] MEDS: CALCITRIOL 0.25 MCG CAPSULE (FP) PO SCH (11:00)
[2017-06-05] MEDS: AMINO ACIDS/PROTEIN HYDROLYS 30 ML LIQUID.PKT PO SCH (11:00)
[2017-06-05] MEDS: VITAMIN B COMP W-C 1 EA TABLET PO SCH (11:08)
[2017-06-05] MEDS: MIDODRINE HCL 5 MG TABLET PO SCH ×3 (11:09→18:14)
[2017-06-05] MEDS ORDERED: morphine SULFATE 4 MG/ML VIAL ONE (12:11)
--- NOTE | 2017-06-05 12:19 | PN ---
Teaching Attending Note Name of Resident: Den Dsouza ATTENDING PHYSICIAN STATEMENT I saw and evaluated the patient. I reviewed the resident's note and discussed the case with the resident. I agree with the resident's findings and plan as documented. SUBJECTIVE: Patient seen and examined in the ICU. Remains intubated, sedated. Remains off pressors. Intake & Output 06/02/17 06/03/17 06/04/17 06/05/17 23:59 23:59 23:59 23:59 Intake Total 943 1104.2 1306.5 291.2 Output Total 0 0 0 Balance 943 1104.2 1306.5 291.2 Weight 203 lb 8 oz 194 lb 4 oz 195 lb 3.2 oz 192 lb 14.4 oz Last Vital Signs Temp Pulse Resp BP Pulse Ox 98.9 F 90 18 119/58 100 06/05/17 06:00 06/05/17 08:33 06/05/17 11:30 06/05/17 08:00 06/05/17 08:33 Active Medications Albuterol/Ipratropium (Duoneb -) 1 amp NEB Q4HPO [facility] Last Admin: 06/05/17 10:34 Dose: 1 amp Amino Acids (Prosource No Carb Liquid Pkt) 30 ml PO DAILY [facility] Last Admin: 06/05/17 11:00 Dose: 30 ml Calcitriol (Rocaltrol -) 0.25 mcg PO DAILY [facility] Last Admin: 06/05/17 11:00 Dose: 0.25 mcg Chlorhexidine Gluconate (Hibiclens For Decolonization -) 1 applic TP HS [facility] Last Admin: 06/04/17 21:48 Dose: 1 applic Gabapentin (Neurontin -) 100 mg NGT TID [facility] Last Admin: 06/05/17 05:29 Dose: 100 mg Hydrocortisone Sodium Succinate (Solu-Cortef -) 50 mg IVPB Q8H-IV [facility] Last Admin: 06/05/17 12:08 Dose: 50 mg Propofol (Diprivan -) 1,000,000 mcg in 100 mls @ 2.754 mls/hr IVPB TITR [facility]; 5 MCG/KG/MIN PRN Reason: Protocol Last Admin: 06/04/17 14:00 Dose: 5 mcg/kg/min, 2.754 mls/hr Insulin Aspart (Novolog Vial Sliding Scale -) 1 vial SQ ACHS [facility] PRN Reason: Protocol Last Admin: 06/05/17 06:24 Dose: 4 units Midodrine (Proamatine -) 5 mg PO TID-MID [facility] Last Admin: 06/05/17 11:09 Dose: 5 mg Mometasone Furoate (Asmanex 220mcg -) 1 puff IH HS [facility] Last Admin: 06/04/17 21:48 Dose: Not Given Morphine Sulfate (Morphine Sulfate) 2 mg IVPUSH Q6H PRN PRN Reason: PAIN LEVEL 1-5 Last Admin: 05/26/17 18:36 Dose: 2 mg Multivit/Ca Carb/B Cmplx/FA/Prenat (Nephro-Pancho -) 1 tablet PO DAILY [facility] Last Admin: 06/05/17 11:08 Dose: 1 tablet Pantoprazole Sodium (Protonix Iv) 40 mg IVPUSH BID [facility] Last Admin: 06/05/17 11:00 Dose: 40 mg Gen: intubated, sedated, +anasarca Heart: RRR Lung: decreased breath sounds at the bases Abd: soft, nontender Ext: + edema Laboratory Results - last 24 hr 06/04/17 06/04/17 06/05/17 13:10 22:22 06:05 Sodium 141 Potassium 3.6 Chloride 101 Carbon Dioxide 27 Anion Gap 13 BUN 33 H Creatinine 2.1 H Creat Clearance w eGFR 24.19 POC Glucometer 184.79612 225.37640 Random Glucose 172 H Calcium 8.2 L Phosphorus 3.0 Magnesium 1.9 Total Bilirubin 1.7 H AST 54 H ALT 38 Alkaline Phosphatase 216 H Total Protein 5.5 L Albumin 2.6 L A/P Acute Hypoxic Respiratory Failure Shock - ?Septic vs Cardiogenic GI Bleed +Troponins likely Demand Ischemia LV Systolic Dysfunction Volume Overload Thrombocytopenia Coagulopathy Gangrene CAD s/p CABG ESRD on HD HTN DM - Remains off ABX - monitoring off pressors/inotropes, maintain MAP >65 - HD per renal with ultrafiltration - Taper steroids - Normal transfusion thresholds - hold sedation to assess mental status - SBTs as tolerated - enteral feeds - DVT/GI prophylaxis - continue ICU monitoring - Will likely need Trach due to failure of weaning Dr Lozada Critical care time spent in reviewing chart, evaluating patient and formulating plan 35 min
--- NOTE | 2017-06-05 13:16 | PROC ---
Central Line Insertion Indication: Vasopressor Risks and Benefits Explained: Yes Consent on Chart: Yes Central Line: Triple Lumen Catheter Anesthesia: 1% Lidocaine Sterile Technique: Yes Ultrasound Guided Assistance: Yes Position: Left Femoral Post Insertion: Yes: Bilateral Breath Sounds, Bilateral Chest Expansion, Chest X-Ray Ordered Sterile Dressing Applied: Yes
[2017-06-05 13:18] LABS: BASO % 0.4 % (0-2.0); HEMATOCRIT 26.8 % (32.4-45.2); HEMOGLOBIN 8.4 GM/dL (10.7-15.3); LYMPH % 1.8 % (8-40); MCH 26.9 pg (25.7-33.7); MCHC 31.4 g/dl (32.0-36.0); MEAN CELL VOLUME 85.8 fl (80-96); MEAN PLT VOLUME 9.5 fl (7.5-11.1); NEUT % 95.8 % (42.8-82.8); PLATELET COUNT 43 K/MM3 (134-434); RBC 3.12 M/mm3 (3.60-5.2); RDW 20.6 % (11.6-15.6); WHITE BLOOD COUNT 9.5 K/mm3 (4.0-10.0)
--- NOTE | 2017-06-05 13:18 | PN ---
Physical Exam: SUBJECTIVE: Patient seen and examined No acute events overnight. Pt afebrile, off of pressors and abx, still failing weaning off of vent. Pt only following minimal commands. OBJECTIVE: Vital Signs Period Temp Pulse Resp BP Sys/Ceron Pulse Ox Last 24 Hr 97 F-98.9 F 80-92 14-24 96-120/42-60 100-100 GENERAL: middle aged female, sedated on vent, NG tube in place, minimally responsive HEENT: vent and NG tube in place LUNGS: anterior lung sounds clear HEART: tachycardia, no murmurs ABDOMEN: soft, non-distended EXTREMITIES: 2+ edema in all extremities NEUROLOGICAL: sedated on vent Laboratory Results - last 24 hr 06/04/17 06/04/17 06/05/17 13:10 22:22 06:05 Sodium 141 Potassium 3.6 Chloride 101 Carbon Dioxide 27 Anion Gap 13 BUN 33 H Creatinine 2.1 H Creat Clearance w eGFR 24.19 POC Glucometer 184.33890 225.34544 Random Glucose 172 H Calcium 8.2 L Phosphorus 3.0 Magnesium 1.9 Total Bilirubin 1.7 H AST 54 H ALT 38 Alkaline Phosphatase 216 H Total Protein 5.5 L Albumin 2.6 L Active Medications Generic Name Dose Route Start Last Admin Trade Name Freq PRN Reason Stop Dose Admin Albuterol/Ipratropium 1 amp 05/21/17 18:00 06/05/17 10:34 Duoneb - NEB 1 amp Q4HPO [facility] Administration Amino Acids 30 ml 05/26/17 10:00 06/05/17 11:00 Prosource No Carb Liquid Pkt PO 30 ml DAILY [facility] Administration Calcitriol 0.25 mcg 05/23/17 10:45 06/05/17 11:00 Rocaltrol - PO 0.25 mcg DAILY [facility] Administration Chlorhexidine Gluconate 1 applic 05/21/17 22:00 06/04/17 21:48 Hibiclens For Decolonization - TP 1 applic HS [facility] Administration Gabapentin 100 mg 05/26/17 22:00 06/05/17 05:29 Neurontin - NGT 100 mg TID [facility] Administration Hydrocortisone Sodium Succinate 50 mg 06/03/17 18:00 06/05/17 12:08 Solu-Cortef - IVPB 50 mg Q8H-IV [facility] Administration Propofol 1,000,000 mcg in 100 mls @ 2.754 mls/hr 05/27/17 11:15 06/04/17 14: 00 Diprivan - IVPB 5 mcg/kg/min TITR [facility] 2.754 mls/hr Protocol Administration 5 MCG/KG/MIN Insulin Aspart 1 vial 05/22/17 22:00 06/05/17 06:24 Novolog Vial Sliding Scale - SQ 4 units ACHS [facility] Administration Protocol Midodrine 5 mg 05/21/17 23:15 06/05/17 11:09 Proamatine - PO 5 mg TID-MID [facility] Administration Mometasone Furoate 1 puff 05/21/17 22:00 06/04/17 21:48 Asmanex 220mcg - IH Not Given HS [facility] Morphine Sulfate 2 mg 05/26/17 15:27 05/26/17 18:36 Morphine Sulfate IVPUSH 2 mg Q6H PRN Administration PAIN LEVEL 1-5 Multivit/Ca Carb/B Cmplx/FA/Prenat 1 tablet 05/22/17 10:00 06/05/17 11:08 Nephro-Pancho - PO 1 tablet DAILY [facility] Administration Pantoprazole Sodium 40 mg 05/25/17 10:00 06/05/17 11:00 Protonix Iv IVPUSH 40 mg BID [facility] Administration ASSESSMENT/PLAN: 56F with PMH of DM, htn, PA (s/p CABG 03/2017), ESRD (on HD [facility]), and hemorrhoids , admitted to the ICU with shock, coagulopathy, currently off of pressors and abx, failing weaning trials off of vent. CV # shock - possibly 2/2 septic vs cardiogenic - ID (Dr. Shen) recs appreciated, now off Meropenem - off pressors now, monitor and maintain MAP > 65 - continue Midodrine - continue hydrocortisone 50mg q8h - central line site changed to left femoral # CAD (s/p CABG) and systolic CHF - Cardiology (Dr. Stapleton) recs appreciated: no AC 2/2 severe anemia, thrombocytopenia, and recent bleed requiring transfusion # dry gangrene to susan feet - continue to monitor Resp # acute hypoxic respiratory failure - intubated on vent, taper steroids - spontaneous breathing trials as tolerated - continue duonebs and Asmanex - Dr. Parish consulted for trach placement. He stated he won't be able to do it until next week. Nephro # ESRD with HD - anuric - Nephrology (Dr. Plummer) recs appreciated. s/p HD yesterday - avoid nephrotoxic agents GI # GI bleed - likely 2/2 hemorrhoids - hgb stable - transfuse as needed Endo # DM - BGMs - SSI - continue Neurontin FEN/ppx - Fluids: via NG tube - Electrolytes: wnl - Nutrition: Nepro to goal of 30 ml/hr x 24 hrs, Prosource 30ml daily - DVT chemoprophylaxis: held 2/2 thrombocytopenia and mechanical ppx held 2/ 2 PAD - GI ppx with Protonix Dispo - Full Code Case discussed with attending, Dr. Lozada. -Den Dsouza MD PGY1 ICU Team Visit type - Emergency Visit Emergency Visit: Yes ED Registration Date: 05/21/17 Care time: The patient presented to the Emergency Department on the above date and was hospitalized for further evaluation of their emergent condition. - New Patient This patient is new to me today: No - Critical Care Critical Care patient: Yes Total Critical Care Time (in minutes): 36 Critical Care Statement: The care of this patient involved high complexity decision making to prevent further life threatening deterioration of the patient 's condition and/or to evaluate & treat vital organ system(s) failure or risk of failure.
[2017-06-05] MEDS ORDERED: morphine SULFATE 4 MG/ML VIAL IVPUSH ONE (13:56)
[2017-06-05] MEDS ORDERED: SODIUM CHLORIDE 250 ML IV PRN (15:36)
--- NOTE | 2017-06-05 15:36 | PN ---
Progress Note, Physician History of Present Illness: Pt seen and examined at bedside. She remains in the ICU. Pt remains intubated. - Current Medication List Current Medications: Active Medications Albuterol/Ipratropium (Duoneb -) 1 amp NEB Q4HPO [facility] Last Admin: 06/05/17 14:24 Dose: 1 amp Amino Acids (Prosource No Carb Liquid Pkt) 30 ml PO DAILY [facility] Last Admin: 06/05/17 11:00 Dose: 30 ml Calcitriol (Rocaltrol -) 0.25 mcg PO DAILY [facility] Last Admin: 06/05/17 11:00 Dose: 0.25 mcg Chlorhexidine Gluconate (Hibiclens For Decolonization -) 1 applic TP HS [facility] Last Admin: 06/04/17 21:48 Dose: 1 applic Gabapentin (Neurontin -) 100 mg NGT TID [facility] Last Admin: 06/05/17 05:29 Dose: 100 mg Hydrocortisone Sodium Succinate (Solu-Cortef -) 50 mg IVPB Q8H-IV [facility] Last Admin: 06/05/17 12:08 Dose: 50 mg Propofol (Diprivan -) 1,000,000 mcg in 100 mls @ 2.754 mls/hr IVPB TITR [facility]; 5 MCG/KG/MIN PRN Reason: Protocol Last Admin: 06/04/17 14:00 Dose: 5 mcg/kg/min, 2.754 mls/hr Insulin Aspart (Novolog Vial Sliding Scale -) 1 vial SQ ACHS [facility] PRN Reason: Protocol Last Admin: 06/05/17 06:24 Dose: 4 units Midodrine (Proamatine -) 5 mg PO TID-MID [facility] Last Admin: 06/05/17 11:09 Dose: 5 mg Mometasone Furoate (Asmanex 220mcg -) 1 puff IH HS [facility] Last Admin: 06/04/17 21:48 Dose: Not Given Morphine Sulfate (Morphine Sulfate) 2 mg IVPUSH Q6H PRN PRN Reason: PAIN LEVEL 1-5 Last Admin: 05/26/17 18:36 Dose: 2 mg Multivit/Ca Carb/B Cmplx/FA/Prenat (Nephro-Pancho -) 1 tablet PO DAILY [facility] Last Admin: 06/05/17 11:08 Dose: 1 tablet Pantoprazole Sodium (Protonix Iv) 40 mg IVPUSH BID [facility] Last Admin: 06/05/17 11:00 Dose: 40 mg - Objective Vital Signs: Vital Signs Temperature 98.2 F 06/05/17 14:19 Pulse Rate 88 06/05/17 14:19 Respiratory Rate 16 06/05/17 14:24 Blood Pressure 108/52 06/05/17 14:19 O2 Sat by Pulse Oximetry (%) 100 06/05/17 08:33 Constitutional: Yes: Calm Eyes: Yes: Conjunctiva Clear HENT: Yes: Atraumatic Cardiovascular: Yes: S1, S2 Respiratory: Yes: Mechanically Ventilated Gastrointestinal: Yes: Soft Genitourinary: Yes: Incontinence Musculoskeletal: Yes: Muscle Weakness Edema: Yes Edema: LUE: 1+, RUE: 1+, LLE: 1+, RLE: 1+ Wound/Incision: Yes: Other (gangrene of right foot) Labs: CBC, BMP 06/05/17 06:05 06/05/17 06:05 INR, PTT INR 1.11 (0.82-1.09) 06/01/17 05:40 Fibrinogen 134.0 mg/dL (238-498) L 06/01/17 05:40 Problem List - Problems (1) ESRD (end stage renal disease) Code(s): N18.6 - END STAGE RENAL DISEASE (2) CAD (coronary artery disease) Code(s): I25.10 - ATHSCL HEART DISEASE OF [place] CORONARY ARTERY W/O ANG PCTRS Qualifiers: Coronary Disease-Associated Artery/Lesion type: [place] artery Associated angina: without angina (3) Hx of CABG Code(s): Z95.1 - PRESENCE OF AORTOCORONARY BYPASS GRAFT (4) Anemia Code(s): D64.9 - ANEMIA, UNSPECIFIED (5) GI bleed Code(s): K92.2 - GASTROINTESTINAL HEMORRHAGE, UNSPECIFIED Assessment/Plan Current Medications Generic Name Dose Route Start Last Admin Trade Name Freq PRN Reason Stop Dose Admin Albuterol/Ipratropium 1 amp 05/21/17 18:00 06/05/17 14:24 Duoneb - NEB 1 amp Q4HPO [facility] Administration Amino Acids 30 ml 05/26/17 10:00 06/05/17 11:00 Prosource No Carb Liquid Pkt PO 30 ml DAILY [facility] Administration Calcitriol 0.25 mcg 05/23/17 10:45 06/05/17 11:00 Rocaltrol - PO 0.25 mcg DAILY [facility] Administration Chlorhexidine Gluconate 1 applic 05/21/17 22:00 06/04/17 21:48 Hibiclens For Decolonization - TP 1 applic HS [facility] Administration Gabapentin 100 mg 05/26/17 22:00 06/05/17 05:29 Neurontin - NGT 100 mg TID [facility] Administration Hydrocortisone Sodium Succinate 50 mg 06/03/17 18:00 06/05/17 12:08 Solu-Cortef - IVPB 50 mg Q8H-IV [facility] Administration Propofol 1,000,000 mcg in 100 mls @ 2.754 mls/hr 05/27/17 11:15 06/04/17 14: 00 Diprivan - IVPB 5 mcg/kg/min TITR [facility] 2.754 mls/hr Protocol Administration 5 MCG/KG/MIN Insulin Aspart 1 vial 05/22/17 22:00 06/05/17 06:24 Novolog Vial Sliding Scale - SQ 4 units ACHS [facility] Administration Protocol Midodrine 5 mg 05/21/17 23:15 06/05/17 11:09 Proamatine - PO 5 mg TID-MID [facility] Administration Mometasone Furoate 1 puff 05/21/17 22:00 06/04/17 21:48 Asmanex 220mcg - IH Not Given HS [facility] Morphine Sulfate 2 mg 05/26/17 15:27 05/26/17 18:36 Morphine Sulfate IVPUSH 2 mg Q6H PRN Administration PAIN LEVEL 1-5 Multivit/Ca Carb/B Cmplx/FA/Prenat 1 tablet 05/22/17 10:00 06/05/17 11:08 Nephro-Pancho - PO 1 tablet DAILY [facility] Administration Pantoprazole Sodium 40 mg 05/25/17 10:00 06/05/17 11:00 Protonix Iv IVPUSH 40 mg BID [facility] Administration Impression 1. ESRD 2. GI bleed likely from hemorrhoids 3. hemorrhoids 4. anemia 5. CAD 6. s/p CABG 7. DM 8. hypotension 9. lactic acidosis 10. volume overload 11. resp failure requiring intubation Plan - will arrange for HD in am - will UF more volume tomorrow - weaning per pulmonary - vent support - there is a discrepancy between blood pressures with the cuff and with the a- line - monitor pulse ox - keep in ICU - will follow Dr Plummer
[2017-06-05] MEDS ORDERED: ALBUMIN HUMAN 25% 12.5 GM/50 ML VIAL IVPB SCH (16:30)
[2017-06-05 16:37] LABS: BASO % 0.3 % (0-2.0); HEMATOCRIT 26.2 % (32.4-45.2); HEMOGLOBIN 8.5 GM/dL (10.7-15.3); LYMPH % 1.9 % (8-40); MCH 27.5 pg (25.7-33.7); MCHC 32.4 g/dl (32.0-36.0); MEAN CELL VOLUME 84.8 fl (80-96); MEAN PLT VOLUME 10.1 fl (7.5-11.1); MONO % 1.3 % (3.8-10.2); NEUT % 96.5 % (42.8-82.8); PLATELET COUNT 51 K/MM3 (134-434); RBC 3.09 M/mm3 (3.60-5.2); RDW 20.3 % (11.6-15.6); WHITE BLOOD COUNT 8.8 K/mm3 (4.0-10.0)
[2017-06-05] MEDS ORDERED: PT OWN MED DRAWER 7, Y5N ONE ×2 (18:13→22:16)
[2017-06-05] MEDS: MOMETASONE FUROATE 220 MCG/IH INHALER IH SCH (22:11)
[2017-06-05] MEDS: CHLORHEXIDINE GLUCONATE 4% CLEANSER FOR DECOLONIZATION TP SCH (22:20)
[2017-06-06] MEDS: HYDROCORTISONE SOD SUCCINATE 100 MG/2 ML VIAL IVPB SCH ×3 (01:20→18:58)
[2017-06-06] MEDS: ALBUTEROL SO4 2.5/IPRATROPIUM 0.5 INH SOL 3 ML VIAL.NEB. NEB SCH ×6 (01:36→21:45)
[2017-06-06 06:01] LABS: BASO % 0.1 % (0-2.0); EOS % 0.3 % (0-4.5); HEMATOCRIT 26.5 % (32.4-45.2); HEMOGLOBIN 8.6 GM/dL (10.7-15.3); LYMPH % 2.6 % (8-40); MCH 27.4 pg (25.7-33.7); MCHC 32.6 g/dl (32.0-36.0); MEAN CELL VOLUME 83.9 fl (80-96); MEAN PLT VOLUME 10.6 fl (7.5-11.1); MONO % 3.9 % (3.8-10.2); NEUT % 93.1 % (42.8-82.8); PLATELET COUNT 45 K/MM3 (134-434); RBC 3.16 M/mm3 (3.60-5.2); RDW 19.5 % (11.6-15.6); WHITE BLOOD COUNT 6.6 K/mm3 (4.0-10.0)
[2017-06-06] MEDS: PROPOFOL 1,000,000 MCG/100 ML VIAL IVPB SCH ×2 (06:15→11:35)
[2017-06-06] MEDS: GABAPENTIN 100 MG CAPSULE (FP) NGT SCH ×3 (06:16→21:59)
[2017-06-06] MEDS: INSULIN SLIDING SCALE (NOVOLOG) 1 VIAL SQ SCH ×4 (06:16→22:00)
[2017-06-06 06:25] LABS: ALBUMIN 2.3 g/dl (3.4-5.0); ANION GAP 12 (8-16); BLOOD UREA NITROGEN 44 mg/dL (7-18); CHLORIDE 101 mmol/L (98-107); CO2 28 mmol/L (21-32); GLUCOSE,RANDOM 113 mg/dL (74-106); MAGNESIUM 1.9 mg/dL (1.8-2.4); POTASSIUM 3.3 mmol/L (3.5-5.1); SODIUM 141 mmol/L (136-145)
[2017-06-06 06:28] LABS: ALK PHOS 111 U/L (45-117); BILIRUBIN,TOTAL 1.5 mg/dL (0.2-1.0); CREATININE 2.4 mg/dL (0.55-1.02); PHOSPHOROUS 3.4 mg/dL (2.5-4.9); SGOT/AST 28 U/L (15-37); SGPT/ALT 26 U/L (12-78); TOT PROT 5.3 g/dl (6.4-8.2)
[2017-06-06 06:42] LABS: INR 1.11 (0.82-1.09); PROTHROMBIN TIME (PATIENT) 12.5 SEC (9.98-11.88)
[2017-06-06 06:45] LABS: ACTIVATED PTT 30.9 SECONDS (26.9-34.4)
[2017-06-06] MEDS ORDERED: PT OWN MED DRAWER 7, Y5N ONE (10:01)
--- NOTE | 2017-06-06 10:11 | PN ---
Progress Note, Physician History of Present Illness: patient seen and examined in ICU. overall condition same. remains intubated off abx/ pressors all f/u noted. opens eyes . - Current Medication List Current Medications: Active Medications Albuterol/Ipratropium (Duoneb -) 1 amp NEB Q4HPO [facility] Last Admin: 06/06/17 09:10 Dose: 1 amp Amino Acids (Prosource No Carb Liquid Pkt) 30 ml PO DAILY [facility] Last Admin: 06/05/17 11:00 Dose: 30 ml Calcitriol (Rocaltrol -) 0.25 mcg PO DAILY [facility] Last Admin: 06/05/17 11:00 Dose: 0.25 mcg Chlorhexidine Gluconate (Hibiclens For Decolonization -) 1 applic TP HS [facility] Last Admin: 06/05/17 22:20 Dose: 1 applic Gabapentin (Neurontin -) 100 mg NGT TID [facility] Last Admin: 06/06/17 06:16 Dose: 100 mg Hydrocortisone Sodium Succinate (Solu-Cortef -) 50 mg IVPB Q8H-IV [facility] Last Admin: 06/06/17 01:20 Dose: 50 mg Propofol (Diprivan -) 1,000,000 mcg in 100 mls @ 2.754 mls/hr IVPB TITR [facility]; 5 MCG/KG/MIN PRN Reason: Protocol Last Admin: 06/06/17 06:15 Dose: 5 mcg/kg/min, 2.754 mls/hr Sodium Chloride (Normal Saline -) 250 mls @ 3,000 mls/hr IV PRN PRN PRN Reason: Hypotension during Dialysis Stop: 06/06/17 15:36 Insulin Aspart (Novolog Vial Sliding Scale -) 1 vial SQ ACHS [facility] PRN Reason: Protocol Last Admin: 06/06/17 06:16 Dose: Not Given Midodrine (Proamatine -) 5 mg PO TID-MID [facility] Last Admin: 06/05/17 18:14 Dose: 5 mg Mometasone Furoate (Asmanex 220mcg -) 1 puff IH HS [facility] Last Admin: 06/05/17 22:11 Dose: Not Given Morphine Sulfate (Morphine Sulfate) 2 mg IVPUSH Q6H PRN PRN Reason: PAIN LEVEL 1-5 Last Admin: 05/26/17 18:36 Dose: 2 mg Multivit/Ca Carb/B Cmplx/FA/Prenat (Nephro-Pancho -) 1 tablet PO DAILY [facility] Last Admin: 06/05/17 11:08 Dose: 1 tablet Pantoprazole Sodium (Protonix Iv) 40 mg IVPUSH BID [facility] Last Admin: 06/05/17 22:20 Dose: 40 mg - Objective Vital Signs: Vital Signs Temperature 98.6 F 06/06/17 02:00 Pulse Rate 84 06/06/17 06:00 Respiratory Rate 14 06/06/17 09:00 Blood Pressure 124/58 06/06/17 06:00 O2 Sat by Pulse Oximetry (%) 100 06/05/17 22:00 Constitutional: Yes: Other. No: No Distress (orally intubated) Eyes: Yes: Conjunctiva Clear Cardiovascular: Yes: Regular Rate and Rhythm Respiratory: Yes: Diminished Gastrointestinal: Yes: Soft Edema: LLE: 2+, RLE: 2+ Labs: CBC, BMP 06/06/17 05:30 06/06/17 05:30 INR, PTT INR 1.11 (0.82-1.09) 06/06/17 05:30 Fibrinogen 411.0 mg/dL (238-498) D 06/06/17 05:30 Problem List - Problems (1) Respiratory failure Code(s): J96.90 - RESPIRATORY FAILURE, UNSP, UNSP W HYPOXIA OR HYPERCAPNIA (2) Coagulopathy Code(s): D68.9 - COAGULATION DEFECT, UNSPECIFIED (3) GI bleed Code(s): K92.2 - GASTROINTESTINAL HEMORRHAGE, UNSPECIFIED (4) Gangrene Code(s): I96 - GANGRENE, NOT ELSEWHERE CLASSIFIED (5) Hx of CABG Code(s): Z95.1 - PRESENCE OF AORTOCORONARY BYPASS GRAFT Assessment/Plan sepsis- GI bleed respiratory failure recent CABG-bioMVR/TVR esrd--on hemodialysis severe PAD with dry gangrene of both legs thrombocytopenia- hypovolemic shock. meds reviewed Continue present care failed weaning trial Overall condition/and prognosis poor. family requests everything will need trach will follow cc time 25 min. discussed with pts son who is at bedside will discuss with icu team .
[2017-06-06] MEDS: CALCITRIOL 0.25 MCG CAPSULE (FP) PO SCH (10:19)
[2017-06-06] MEDS: PANTOPRAZOLE SODIUM 40 MG VIAL IVPUSH SCH ×2 (10:22→21:59)
[2017-06-06] MEDS: MIDODRINE HCL 5 MG TABLET PO SCH ×3 (10:22→18:58)
[2017-06-06] MEDS: AMINO ACIDS/PROTEIN HYDROLYS 30 ML LIQUID.PKT PO SCH (10:22)
[2017-06-06] MEDS: VITAMIN B COMP W-C 1 EA TABLET PO SCH (10:22)
--- NOTE | 2017-06-06 12:16 | PN ---
Teaching Attending Note Name of Resident: Casandra Parry ATTENDING PHYSICIAN STATEMENT I saw and evaluated the patient. I reviewed the resident's note and discussed the case with the resident. I agree with the resident's findings and plan as documented. SUBJECTIVE: Patient seen and examined in the ICU. Remains intubated, sedated. Remains off pressors. Intake & Output 06/03/17 06/04/17 06/05/17 06/06/17 23:59 23:59 23:59 23:59 Intake Total 1104.2 1306.5 894.4 421 Output Total 0 0 0 0 Balance 1104.2 1306.5 894.4 421 Weight 194 lb 4 oz 195 lb 3.2 oz 192 lb 14.4 oz 190 lb 8 oz Last Vital Signs Temp Pulse Resp BP Pulse Ox 98.2 F 85 16 123/56 100 06/06/17 10:00 06/06/17 10:00 06/06/17 11:36 06/06/17 10:00 06/05/17 22:00 Active Medications Albuterol/Ipratropium (Duoneb -) 1 amp NEB Q4HPO [facility] Last Admin: 06/06/17 09:10 Dose: 1 amp Amino Acids (Prosource No Carb Liquid Pkt) 30 ml PO DAILY [facility] Last Admin: 06/06/17 10:22 Dose: 30 ml Calcitriol (Rocaltrol -) 0.25 mcg PO DAILY [facility] Last Admin: 06/06/17 10:19 Dose: Not Given Chlorhexidine Gluconate (Hibiclens For Decolonization -) 1 applic TP HS [facility] Last Admin: 06/05/17 22:20 Dose: 1 applic Gabapentin (Neurontin -) 100 mg NGT TID [facility] Last Admin: 06/06/17 06:16 Dose: 100 mg Hydrocortisone Sodium Succinate (Solu-Cortef -) 50 mg IVPB Q8H-IV [facility] Last Admin: 06/06/17 10:22 Dose: 50 mg Propofol (Diprivan -) 1,000,000 mcg in 100 mls @ 2.754 mls/hr IVPB TITR [facility]; 5 MCG/KG/MIN PRN Reason: Protocol Last Admin: 06/06/17 11:35 Dose: Not Given Sodium Chloride (Normal Saline -) 250 mls @ 3,000 mls/hr IV PRN PRN PRN Reason: Hypotension during Dialysis Stop: 06/06/17 15:36 Insulin Aspart (Novolog Vial Sliding Scale -) 1 vial SQ ACHS [facility] PRN Reason: Protocol Last Admin: 06/06/17 11:35 Dose: 2 units Midodrine (Proamatine -) 5 mg PO TID-MID [facility] Last Admin: 06/06/17 10:22 Dose: 5 mg Mometasone Furoate (Asmanex 220mcg -) 1 puff IH HS [facility] Last Admin: 06/05/17 22:11 Dose: Not Given Morphine Sulfate (Morphine Sulfate) 2 mg IVPUSH Q6H PRN PRN Reason: PAIN LEVEL 1-5 Last Admin: 05/26/17 18:36 Dose: 2 mg Multivit/Ca Carb/B Cmplx/FA/Prenat (Nephro-Pancho -) 1 tablet PO DAILY [facility] Last Admin: 06/06/17 10:22 Dose: 1 tablet Pantoprazole Sodium (Protonix Iv) 40 mg IVPUSH BID [facility] Last Admin: 06/06/17 10:22 Dose: 40 mg Gen: intubated, sedated, +anasarca Heart: RRR Lung: decreased breath sounds at the bases Abd: soft, nontender Ext: + edema Laboratory Results - last 24 hr 06/05/17 06/05/17 06/06/17 06:05 15:00 05:30 WBC 9.5 D 8.8 6.6 RBC 3.12 L 3.09 L 3.16 L Hgb 8.4 L 8.5 L 8.6 L Hct 26.8 L 26.2 L 26.5 L MCV 85.8 84.8 83.9 MCH 26.9 27.5 27.4 MCHC 31.4 L 32.4 32.6 RDW 20.6 H 20.3 H 19.5 H Plt Count 43 L D 51 L 45 L MPV 9.5 10.1 10.6 Neutrophils % 95.8 H 96.5 H 93.1 H Lymphocytes % 1.8 L D 1.9 L 2.6 L D Monocytes % 2.0 L 1.3 L 3.9 D Eosinophils % 0.0 0.0 0.3 D Basophils % 0.4 D 0.3 0.1 PT with INR INR PTT (Actin FS) Fibrinogen Sodium Potassium Chloride Carbon Dioxide Anion Gap BUN Creatinine Creat Clearance w eGFR Random Glucose Calcium Phosphorus Magnesium Total Bilirubin AST ALT Alkaline Phosphatase Total Protein Albumin 06/06/17 06/06/17 05:30 05:30 WBC RBC Hgb Hct MCV MCH MCHC RDW Plt Count MPV Neutrophils % Lymphocytes % Monocytes % Eosinophils % Basophils % PT with INR 12.50 H INR 1.11 PTT (Actin FS) 30.9 Fibrinogen 411.0 D Sodium 141 Potassium 3.3 L Chloride 101 Carbon Dioxide 28 Anion Gap 12 BUN 44 H Creatinine 2.4 H Creat Clearance w eGFR 20.73 Random Glucose 113 H Calcium 8.0 L Phosphorus 3.4 Magnesium 1.9 Total Bilirubin 1.5 H AST 28 ALT 26 Alkaline Phosphatase 111 Total Protein 5.3 L Albumin 2.3 L A/P Acute Hypoxic Respiratory Failure Shock - ?Septic vs Cardiogenic GI Bleed +Troponins likely Demand Ischemia LV Systolic Dysfunction Volume Overload Thrombocytopenia Coagulopathy Gangrene CAD s/p CABG ESRD on HD HTN DM - Remains off ABX - monitoring off pressors/inotropes, maintain MAP >65 - HD per renal with ultrafiltration - Taper steroids - Normal transfusion thresholds - hold sedation to assess mental status - SBTs as tolerated - enteral feeds - DVT/GI prophylaxis - continue ICU monitoring - Will need Trach due to failure of weaning - Change TLC position Dr Lozada Critical care time spent in reviewing chart, evaluating patient and formulating plan 35 min
--- NOTE | 2017-06-06 13:14 | PROC ---
Procedure Note Procedure: Procedure well tolerated. Central Line Insertion Indication: Other Risks and Benefits Explained: Yes (to son who gave consent) Consent on Chart: Yes Central Line: Triple Lumen Catheter Anesthesia: 1% Lidocaine Sterile Technique: Yes Ultrasound Guided Assistance: Yes Position: Left Internal Jugular Post Insertion: Yes: Bilateral Breath Sounds, Bilateral Chest Expansion, Chest X-Ray Ordered Sterile Dressing Applied: Yes
[2017-06-06] MEDS ORDERED: POTASSIUM CHLORIDE ORAL LIQUID 20 MEQ/15 ML NGT ONE (14:39)
--- NOTE | 2017-06-06 15:02 | PN ---
Physical Exam: SUBJECTIVE: Patient seen and examined in the ICU. Pt remains intubated, sedated. Pt drowsy but arousable to verbal stimuli. Pt remains off pressors. OBJECTIVE: Vital Signs Period Temp Pulse Resp BP Sys/Ceron Pulse Ox Last 24 Hr 98.2 F-98.6 F 73-89 14-18 101-125/48-61 100-100 GENERAL: intubated, sedated, looks comfortable. Drowsy but arousable. NECK: supple. Left IJ TLC intact. LUNGS: Breath sounds equal, clear to auscultation bilaterally, no wheezes, no crackles, no accessory muscle use. HEART: Regular rate and rhythm, S1, S2 without murmur, rub or gallop. ABDOMEN: Soft, nontender, nondistended, normoactive bowel sounds. EXTREMITIES: susan gangrenous changes to feet. 4+ pitting edema to susan LE. Anasarca persists throughout. Laboratory Results - last 24 hr 06/05/17 06/06/17 06/06/17 15:00 05:30 05:30 WBC 8.8 6.6 RBC 3.09 L 3.16 L Hgb 8.5 L 8.6 L Hct 26.2 L 26.5 L MCV 84.8 83.9 MCH 27.5 27.4 MCHC 32.4 32.6 RDW 20.3 H 19.5 H Plt Count 51 L 45 L MPV 10.1 10.6 Neutrophils % 96.5 H 93.1 H Lymphocytes % 1.9 L 2.6 L D Monocytes % 1.3 L 3.9 D Eosinophils % 0.0 0.3 D Basophils % 0.3 0.1 PT with INR 12.50 H INR 1.11 PTT (Actin FS) 30.9 Fibrinogen 411.0 D Sodium Potassium Chloride Carbon Dioxide Anion Gap BUN Creatinine Creat Clearance w eGFR Random Glucose Calcium Phosphorus Magnesium Total Bilirubin AST ALT Alkaline Phosphatase Total Protein Albumin 06/06/17 05:30 WBC RBC Hgb Hct MCV MCH MCHC RDW Plt Count MPV Neutrophils % Lymphocytes % Monocytes % Eosinophils % Basophils % PT with INR INR PTT (Actin FS) Fibrinogen Sodium 141 Potassium 3.3 L Chloride 101 Carbon Dioxide 28 Anion Gap 12 BUN 44 H Creatinine 2.4 H Creat Clearance w eGFR 20.73 Random Glucose 113 H Calcium 8.0 L Phosphorus 3.4 Magnesium 1.9 Total Bilirubin 1.5 H AST 28 ALT 26 Alkaline Phosphatase 111 Total Protein 5.3 L Albumin 2.3 L Active Medications Generic Name Dose Route Start Last Admin Trade Name Trisha PRN Reason Stop Dose Admin Albuterol/Ipratropium 1 amp 05/21/17 18:00 06/06/17 13:49 Duoneb - NEB 1 amp Q4HPO [facility] Administration Amino Acids 30 ml 05/26/17 10:00 06/06/17 10:22 Prosource No Carb Liquid Pkt PO 30 ml DAILY [facility] Administration Calcitriol 0.25 mcg 05/23/17 10:45 06/06/17 10:19 Rocaltrol - PO Not Given DAILY [facility] Chlorhexidine Gluconate 1 applic 05/21/17 22:00 06/05/17 22:20 Hibiclens For Decolonization - TP 1 applic HS [facility] Administration Gabapentin 100 mg 05/26/17 22:00 06/06/17 06:16 Neurontin - NGT 100 mg TID [facility] Administration Hydrocortisone Sodium Succinate 50 mg 06/03/17 18:00 06/06/17 10:22 Solu-Cortef - IVPB 50 mg Q8H-IV [facility] Administration Propofol 1,000,000 mcg in 100 mls @ 2.754 mls/hr 05/27/17 11:15 06/06/17 11: 35 Diprivan - IVPB Not Given TITR [facility] Protocol 5 MCG/KG/MIN Sodium Chloride 250 mls @ 3,000 mls/hr 06/05/17 15:36 Normal Saline - IV 06/06/17 15:36 PRN PRN Hypotension during Dialysis Insulin Aspart 1 vial 05/22/17 22:00 06/06/17 11:35 Novolog Vial Sliding Scale - SQ 2 units ACHS [facility] Administration Protocol Midodrine 5 mg 05/21/17 23:15 06/06/17 10:22 Proamatine - PO 5 mg TID-MID [facility] Administration Mometasone Furoate 1 puff 05/21/17 22:00 06/05/17 22:11 Asmanex 220mcg - IH Not Given HS [facility] Morphine Sulfate 2 mg 05/26/17 15:27 05/26/17 18:36 Morphine Sulfate IVPUSH 2 mg Q6H PRN Administration PAIN LEVEL 1-5 Multivit/Ca Carb/B Cmplx/FA/Prenat 1 tablet 05/22/17 10:00 06/06/17 10:22 Nephro-Pancho - PO 1 tablet DAILY [facility] Administration Pantoprazole Sodium 40 mg 05/25/17 10:00 06/06/17 10:22 Protonix Iv IVPUSH 40 mg BID [facility] Administration Potassium Chloride 20 meq 06/06/17 14:39 Potassium Chloride Oral Liquid NGT 06/06/17 14:40 ONCE ONE ASSESSMENT/PLAN: 56F with PMH of DM, htn, RI (s/p CABG 03/2017), ESRD (on HD MW), and hemorrhoids , admitted to the ICU with septic shock. # shock - possibly 2/2 septic vs cardiogenic - remains off antibiotics - remains off pressors now, monitor and maintain MAP > 65 - continue Midodrine - TLC position changed from femoral to Left IJ # acute hypoxic respiratory failure - intubated on vent - taper steroids - spontaneous breathing trials as tolerated - hold sedation to assess mental status - continue duonebs and Asmanex - will need trach placed next week 2/2 failure of weaning trials # CV: CAD (s/p CABG) and systolic CHF - Cardiology (Dr. Stapleton) recs appreciated: no AC 2/2 severe anemia, thrombocytopenia, and recent bleed requiring transfusion # ESRD with HD - anuric - Nephrology (Dr. Plummer) recs appreciated: Albumin and HD today - 3 kg removed - avoid nephrotoxic agents # GI bleed - likely 2/2 hemorrhoids - hgb stable - transfuse as needed # DM - BGMs - SSI - continue Neurontin # dry gangrene to susan feet - continue to monitor # FEN - Fluids: enteral nutrition - Electrolytes: hypokalemia repleted, continue to monitor - Nutrition: Nepro to goal of 30 ml/hr x 24 hrs, Prosource 30ml daily # Prophylaxis - DVT chemoprophylaxis held 2/2 thrombocytopenia and mechanical ppx held 2/2 PAD - GI ppx with Protonix #Dispo - Full Code Visit type - Emergency Visit Emergency Visit: Yes ED Registration Date: 05/21/17 Care time: The patient presented to the Emergency Department on the above date and was hospitalized for further evaluation of their emergent condition. - New Patient This patient is new to me today: No - Critical Care Critical Care patient: Yes Total Critical Care Time (in minutes): 46 Critical Care Statement: The care of this patient involved high complexity decision making to prevent further life threatening deterioration of the patient 's condition and/or to evaluate & treat vital organ system(s) failure or risk of failure.
--- NOTE | 2017-06-06 15:17 | PN ---
Progress Note, Physician History of Present Illness: Pt seen and examined at bedside. She remains in the ICU. She remains intubated. Pt is currently getting HD. - Current Medication List Current Medications: Active Medications Albuterol/Ipratropium (Duoneb -) 1 amp NEB Q4HPO [facility] Last Admin: 06/06/17 13:49 Dose: 1 amp Amino Acids (Prosource No Carb Liquid Pkt) 30 ml PO DAILY [facility] Last Admin: 06/06/17 10:22 Dose: 30 ml Calcitriol (Rocaltrol -) 0.25 mcg PO DAILY [facility] Last Admin: 06/06/17 10:19 Dose: Not Given Chlorhexidine Gluconate (Hibiclens For Decolonization -) 1 applic TP HS [facility] Last Admin: 06/05/17 22:20 Dose: 1 applic Gabapentin (Neurontin -) 100 mg NGT TID [facility] Last Admin: 06/06/17 06:16 Dose: 100 mg Hydrocortisone Sodium Succinate (Solu-Cortef -) 50 mg IVPB Q8H-IV [facility] Last Admin: 06/06/17 10:22 Dose: 50 mg Propofol (Diprivan -) 1,000,000 mcg in 100 mls @ 2.754 mls/hr IVPB TITR [facility]; 5 MCG/KG/MIN PRN Reason: Protocol Last Admin: 06/06/17 11:35 Dose: Not Given Sodium Chloride (Normal Saline -) 250 mls @ 3,000 mls/hr IV PRN PRN PRN Reason: Hypotension during Dialysis Stop: 06/06/17 15:36 Insulin Aspart (Novolog Vial Sliding Scale -) 1 vial SQ ACHS [facility] PRN Reason: Protocol Last Admin: 06/06/17 11:35 Dose: 2 units Midodrine (Proamatine -) 5 mg PO TID-MID [facility] Last Admin: 06/06/17 10:22 Dose: 5 mg Mometasone Furoate (Asmanex 220mcg -) 1 puff IH HS [facility] Last Admin: 06/05/17 22:11 Dose: Not Given Morphine Sulfate (Morphine Sulfate) 2 mg IVPUSH Q6H PRN PRN Reason: PAIN LEVEL 1-5 Last Admin: 05/26/17 18:36 Dose: 2 mg Multivit/Ca Carb/B Cmplx/FA/Prenat (Nephro-Pancho -) 1 tablet PO DAILY [facility] Last Admin: 06/06/17 10:22 Dose: 1 tablet Pantoprazole Sodium (Protonix Iv) 40 mg IVPUSH BID [facility] Last Admin: 06/06/17 10:22 Dose: 40 mg - Objective Vital Signs: Vital Signs Temperature 98.4 F 06/06/17 14:10 Pulse Rate 86 06/06/17 14:45 Respiratory Rate 14 06/06/17 14:45 Blood Pressure 122/55 06/06/17 14:45 O2 Sat by Pulse Oximetry (%) 100 06/06/17 09:00 Constitutional: Yes: Calm Eyes: Yes: Conjunctiva Clear HENT: Yes: Atraumatic Neck: Yes: Supple Cardiovascular: Yes: S1, S2 Respiratory: Yes: Mechanically Ventilated Gastrointestinal: Yes: Soft Genitourinary: Yes: Incontinence Musculoskeletal: Yes: Muscle Weakness Edema: Yes Edema: LUE: 1+, RUE: 1+ Integumentary: Yes: Other (gangrene) Labs: CBC, BMP 06/06/17 05:30 06/06/17 05:30 INR, PTT INR 1.11 (0.82-1.09) 06/06/17 05:30 Fibrinogen 411.0 mg/dL (238-498) D 06/06/17 05:30 - ....Imaging Chest X-ray: Report Reviewed Problem List - Problems (1) ESRD (end stage renal disease) Code(s): N18.6 - END STAGE RENAL DISEASE (2) CAD (coronary artery disease) Code(s): I25.10 - ATHSCL HEART DISEASE OF [place] CORONARY ARTERY W/O ANG PCTRS Qualifiers: Coronary Disease-Associated Artery/Lesion type: [place] artery Associated angina: without angina (3) Hx of CABG Code(s): Z95.1 - PRESENCE OF AORTOCORONARY BYPASS GRAFT (4) Anemia Code(s): D64.9 - ANEMIA, UNSPECIFIED (5) GI bleed Code(s): K92.2 - GASTROINTESTINAL HEMORRHAGE, UNSPECIFIED Assessment/Plan Current Medications Generic Name Dose Route Start Last Admin Trade Name Freq PRN Reason Stop Dose Admin Albuterol/Ipratropium 1 amp 05/21/17 18:00 06/06/17 13:49 Duoneb - NEB 1 amp Q4HPO [facility] Administration Amino Acids 30 ml 05/26/17 10:00 06/06/17 10:22 Prosource No Carb Liquid Pkt PO 30 ml DAILY [facility] Administration Calcitriol 0.25 mcg 05/23/17 10:45 06/06/17 10:19 Rocaltrol - PO Not Given DAILY [facility] Chlorhexidine Gluconate 1 applic 05/21/17 22:00 06/05/17 22:20 Hibiclens For Decolonization - TP 1 applic HS [facility] Administration Gabapentin 100 mg 05/26/17 22:00 06/06/17 06:16 Neurontin - NGT 100 mg TID [facility] Administration Hydrocortisone Sodium Succinate 50 mg 06/03/17 18:00 06/06/17 10:22 Solu-Cortef - IVPB 50 mg Q8H-IV [facility] Administration Propofol 1,000,000 mcg in 100 mls @ 2.754 mls/hr 05/27/17 11:15 06/06/17 11: 35 Diprivan - IVPB Not Given TITR [facility] Protocol 5 MCG/KG/MIN Sodium Chloride 250 mls @ 3,000 mls/hr 06/05/17 15:36 Normal Saline - IV 06/06/17 15:36 PRN PRN Hypotension during Dialysis Insulin Aspart 1 vial 05/22/17 22:00 06/06/17 11:35 Novolog Vial Sliding Scale - SQ 2 units ACHS [facility] Administration Protocol Midodrine 5 mg 05/21/17 23:15 06/06/17 10:22 Proamatine - PO 5 mg TID-MID [facility] Administration Mometasone Furoate 1 puff 05/21/17 22:00 06/05/17 22:11 Asmanex 220mcg - IH Not Given HS [facility] Morphine Sulfate 2 mg 05/26/17 15:27 05/26/17 18:36 Morphine Sulfate IVPUSH 2 mg Q6H PRN Administration PAIN LEVEL 1-5 Multivit/Ca Carb/B Cmplx/FA/Prenat 1 tablet 05/22/17 10:00 06/06/17 10:22 Nephro-Pancho - PO 1 tablet DAILY [facility] Administration Pantoprazole Sodium 40 mg 05/25/17 10:00 06/06/17 10:22 Protonix Iv IVPUSH 40 mg BID [facility] Administration Impression 1. ESRD 2. GI bleed likely from hemorrhoids 3. hemorrhoids 4. anemia 5. CAD 6. s/p CABG 7. DM 8. hypotension 9. lactic acidosis 10. volume overload 11. resp failure requiring intubation Plan - HD today - pt is going for trache next week - vent support - will attempt to UF 3 liters on HD - discussed with ICU team - there is a discrepancy between blood pressures with the cuff and with the a- line - monitor pulse ox - keep in ICU - will follow Dr Plummer
[2017-06-06] MEDS: MOMETASONE FUROATE 220 MCG/IH INHALER IH SCH (21:52)
[2017-06-06] MEDS: CHLORHEXIDINE GLUCONATE 4% CLEANSER FOR DECOLONIZATION TP SCH (21:59)
[2017-06-07] MEDS: ALBUTEROL SO4 2.5/IPRATROPIUM 0.5 INH SOL 3 ML VIAL.NEB. NEB SCH ×6 (01:49→22:05)
[2017-06-07] MEDS: HYDROCORTISONE SOD SUCCINATE 100 MG/2 ML VIAL IVPB SCH ×3 (02:17→19:04)
[2017-06-07 06:02] LABS: HEMOGLOBIN 8.1 GM/dL (10.7-15.3); MCH 28.3 pg (25.7-33.7); MCHC 33.8 g/dl (32.0-36.0); MEAN CELL VOLUME 83.6 fl (80-96); RBC 2.87 M/mm3 (3.60-5.2); RDW 19.8 % (11.6-15.6); WHITE BLOOD COUNT 4.6 K/mm3 (4.0-10.0)
[2017-06-07 06:11] LABS: ADD RBC MORPHOLOGY YES
[2017-06-07] MEDS: GABAPENTIN 100 MG CAPSULE (FP) NGT SCH ×3 (06:17→21:34)
[2017-06-07] MEDS: INSULIN SLIDING SCALE (NOVOLOG) 1 VIAL SQ SCH ×4 (06:18→21:40)
[2017-06-07 06:52] LABS: ANION GAP 11 (8-16); BILIRUBIN,TOTAL 1.6 mg/dL (0.2-1.0); BLOOD UREA NITROGEN 40 mg/dL (7-18); CALCIUM 7.9 mg/dL (8.5-10.1); CHLORIDE 103 mmol/L (98-107); CO2 27 mmol/L (21-32); CREATININE 2.1 mg/dL (0.55-1.02); GLUCOSE,RANDOM 239 mg/dL (74-106); POTASSIUM 3.7 mmol/L (3.5-5.1); SODIUM 141 mmol/L (136-145)
--- NOTE | 2017-06-07 09:26 | PN ---
Progress Note (short form) - Note Progress Note: SUBJECTIVE: Patient seen and examined in the ICU. 24HR Off pressors HD yesterday no family here today. tlc changed out yesterday Vital Signs Temp 98.4 F 06/07/17 02:00 Pulse 84 06/07/17 07:30 Resp 14 06/07/17 07:30 BP 122/61 06/07/17 06:00 Pulse Ox 100 06/07/17 07:30 Intake & Output 06/06/17 06/06/17 06/07/17 11:59 23:59 11:59 Intake Total 421 324 319 Output Total 0 0 0 Balance 421 324 319 Weight 86.409 kg 81.221 kg Intake: IV 21 44 49 DIPRIVAN - 1,000,000 mcg 21 44 49 In 100 ml @ 5 MCG/KG/MIN 2.754 mls/hr IVPB TITR [facility] Rx#:[id number] IVPB 100 Tube Feeding 360 120 210 Tube Irrigant 40 60 60 Output: Urine 0 0 0 Void 0 0 0 Other: Voiding Method Diaper Diaper Bowel Movement Yes Yes: incontinent to diaper Weight Measurement Method Built in Bedscale Built in [facility] Albuterol/Ipratropium (Duoneb -) 1 amp NEB Q4HPO [facility] Last Admin: 06/07/17 07:08 Dose: 1 amp Amino Acids (Prosource No Carb Liquid Pkt) 30 ml PO DAILY [facility] Last Admin: 06/06/17 10:22 Dose: 30 ml Calcitriol (Rocaltrol -) 0.25 mcg PO DAILY [facility] Last Admin: 06/06/17 10:19 Dose: Not Given Chlorhexidine Gluconate (Hibiclens For Decolonization -) 1 applic TP HS [facility] Last Admin: 06/06/17 21:59 Dose: 1 applic Gabapentin (Neurontin -) 100 mg NGT TID [facility] Last Admin: 06/07/17 06:17 Dose: 100 mg Hydrocortisone Sodium Succinate (Solu-Cortef -) 50 mg IVPB Q8H-IV [facility] Last Admin: 06/07/17 02:17 Dose: 50 mg Propofol (Diprivan -) 1,000,000 mcg in 100 mls @ 2.754 mls/hr IVPB TITR [facility]; 5 MCG/KG/MIN PRN Reason: Protocol Last Admin: 06/06/17 11:35 Dose: Not Given Sodium Chloride (Normal Saline -) 250 mls @ 3,000 mls/hr IV PRN PRN PRN Reason: Hypotension during Dialysis Stop: 06/06/17 15:36 Insulin Aspart (Novolog Vial Sliding Scale -) 1 vial SQ ACHS [facility] PRN Reason: Protocol Last Admin: 06/07/17 06:18 Dose: 6 units Midodrine (Proamatine -) 5 mg PO TID-MID [facility] Last Admin: 06/06/17 18:58 Dose: 5 mg Mometasone Furoate (Asmanex 220mcg -) 1 puff IH HS [facility] Last Admin: 06/06/17 21:52 Dose: Not Given Morphine Sulfate (Morphine Sulfate) 2 mg IVPUSH Q6H PRN PRN Reason: PAIN LEVEL 1-5 Last Admin: 05/26/17 18:36 Dose: 2 mg Multivit/Ca Carb/B Cmplx/FA/Prenat (Nephro-Pancho -) 1 tablet PO DAILY [facility] Last Admin: 06/06/17 10:22 Dose: 1 tablet Pantoprazole Sodium (Protonix Iv) 40 mg IVPUSH BID [facility] Last Admin: 06/06/17 21:59 Dose: 40 mg Gen: intubated, lightly sedated, +anasarca Heart: RRR Lung: decreased breath sounds at the bases Abd: soft, nontender Ext: + edema, dry gangrene both LE Laboratory Results - last 24 hr 06/07/17 06/07/17 05:45 05:45 WBC 4.6 D RBC 2.87 L Hgb 8.1 L Hct 24.0 L MCV 83.6 MCH 28.3 MCHC 33.8 RDW 19.8 H Neutrophils % No Result Required. Lymphocytes % No Result Required. Sodium 141 Potassium 3.7 Chloride 103 Carbon Dioxide 27 Anion Gap 11 BUN 40 H Creatinine 2.1 H Random Glucose 239 H Calcium 7.9 L Total Bilirubin 1.6 H A/P Acute Hypoxic Respiratory Failure Shock - ?Septic vs Cardiogenic GI Bleed +Troponins likely [place] Ischemia LV Systolic Dysfunction Volume Overload Thrombocytopenia Coagulopathy Gangrene CAD s/p CABG ESRD on HD HTN DM - Remains off ABX - monitoring off pressors/inotropes, maintain MAP >65 - HD per renal with ultrafiltration, HD yesterday with 3L off - cont steroid taper - Normal transfusion thresholds - hold sedation to assess mental status - SBTs - enteral feeds - DVT/GI prophylaxis - continue ICU monitoring - Trach when family amenable - ICU monitoring Sobe[place] ACN [id number] 35min CCT Problem List - Problems (1) Anemia Code(s): D64.9 - ANEMIA, UNSPECIFIED (2) CAD (coronary artery disease) Code(s): I25.10 - ATHSCL HEART DISEASE OF [place] CORONARY ARTERY W/O ANG PCTRS Qualifiers: Coronary Disease-Associated Artery/Lesion type: [place] artery Associated angina: without angina (3) ESRD (end stage renal disease) Code(s): N18.6 - END STAGE RENAL DISEASE (4) GI bleed Code(s): K92.2 - GASTROINTESTINAL HEMORRHAGE, UNSPECIFIED (5) Hx of CABG Code(s): Z95.1 - PRESENCE OF AORTOCORONARY BYPASS GRAFT
--- NOTE | 2017-06-07 09:45 | PN ---
Progress Note (short form) - Note Progress Note: RENAL pt intubated and sedated on 40 percent fio2 Last Vital Signs Temp Pulse Resp BP Pulse Ox 98.4 F 84 14 122/61 100 06/07/17 02:00 06/07/17 07:30 06/07/17 07:30 06/07/17 06:00 06/07/17 07:30 lungs bilat air entry cvs s1s2 rr abd soft ext +edema in all extremities, right foot has dry gangrene CBC, BMP 06/07/17 05:45 06/07/17 05:45 Current Medications Generic Name Dose Route Start Last Admin Trade Name Freq PRN Reason Stop Dose Admin Albuterol/Ipratropium 1 amp 05/21/17 18:00 06/07/17 07:08 Duoneb - NEB 1 amp Q4HPO [facility] Administration Amino Acids 30 ml 05/26/17 10:00 06/06/17 10:22 Prosource No Carb Liquid Pkt PO 30 ml DAILY [facility] Administration Calcitriol 0.25 mcg 05/23/17 10:45 06/06/17 10:19 Rocaltrol - PO Not Given DAILY [facility] Chlorhexidine Gluconate 1 applic 05/21/17 22:00 06/06/17 21:59 Hibiclens For Decolonization - TP 1 applic HS [facility] Administration Gabapentin 100 mg 05/26/17 22:00 06/07/17 06:17 Neurontin - NGT 100 mg TID [facility] Administration Hydrocortisone Sodium Succinate 25 mg 06/07/17 09:26 Solu-Cortef - IVPB Q8H-IV [facility] Propofol 1,000,000 mcg in 100 mls @ 2.754 mls/hr 05/27/17 11:15 06/06/17 11: 35 Diprivan - IVPB Not Given TITR [facility] Protocol 5 MCG/KG/MIN Sodium Chloride 250 mls @ 3,000 mls/hr 06/05/17 15:36 Normal Saline - IV 06/06/17 15:36 PRN PRN Hypotension during Dialysis Insulin Aspart 1 vial 05/22/17 22:00 06/07/17 06:18 Novolog Vial Sliding Scale - SQ 6 units ACHS [facility] Administration Protocol Midodrine 5 mg 05/21/17 23:15 06/06/17 18:58 Proamatine - PO 5 mg TID-MID [facility] Administration Mometasone Furoate 1 puff 05/21/17 22:00 06/06/17 21:52 Asmanex 220mcg - IH Not Given HS [facility] Morphine Sulfate 2 mg 05/26/17 15:27 05/26/17 18:36 Morphine Sulfate IVPUSH 2 mg Q6H PRN Administration PAIN LEVEL 1-5 Multivit/Ca Carb/B Cmplx/FA/Prenat 1 tablet 05/22/17 10:00 06/06/17 10:22 Nephro-Pancho - PO 1 tablet DAILY [facility] Administration Pantoprazole Sodium 40 mg 05/25/17 10:00 06/06/17 21:59 Protonix Iv IVPUSH 40 mg BID [facility] Administration Impression 1. ESRD 2. GI bleed likely from hemorrhoids 3. hemorrhoids 4. anemia 5. CAD 6. s/p CABG 7. DM 8. hypotension 9. lactic acidosis 10. volume overload 11. resp failure requiring intubation Plan weaning attempts per ICU staff can increase midodrine to 10 tid trial of lasix if bp improves once stable will need amputation MV
--- NOTE | 2017-06-07 10:01 | PN ---
Progress Note, Physician Chief Complaint: pt is awake , opens eyes when asked but not moving her fingers no distress unable to wean - Current Medication List Current Medications: Active Medications Albuterol/Ipratropium (Duoneb -) 1 amp NEB Q4HPO [facility] Last Admin: 06/07/17 07:08 Dose: 1 amp Amino Acids (Prosource No Carb Liquid Pkt) 30 ml PO DAILY [facility] Last Admin: 06/06/17 10:22 Dose: 30 ml Calcitriol (Rocaltrol -) 0.25 mcg PO DAILY [facility] Last Admin: 06/06/17 10:19 Dose: Not Given Chlorhexidine Gluconate (Hibiclens For Decolonization -) 1 applic TP HS [facility] Last Admin: 06/06/17 21:59 Dose: 1 applic Gabapentin (Neurontin -) 100 mg NGT TID [facility] Last Admin: 06/07/17 06:17 Dose: 100 mg Hydrocortisone Sodium Succinate (Solu-Cortef -) 25 mg IVPB Q8H-IV [facility] Propofol (Diprivan -) 1,000,000 mcg in 100 mls @ 2.754 mls/hr IVPB TITR RUEL; 5 MCG/KG/MIN PRN Reason: Protocol Last Admin: 06/06/17 11:35 Dose: Not Given Sodium Chloride (Normal Saline -) 250 mls @ 3,000 mls/hr IV PRN PRN PRN Reason: Hypotension during Dialysis Stop: 06/06/17 15:36 Insulin Aspart (Novolog Vial Sliding Scale -) 1 vial SQ ACHS [facility] PRN Reason: Protocol Last Admin: 06/07/17 06:18 Dose: 6 units Midodrine (Proamatine -) 5 mg PO TID-MID [facility] Last Admin: 06/06/17 18:58 Dose: 5 mg Mometasone Furoate (Asmanex 220mcg -) 1 puff IH HS [facility] Last Admin: 06/06/17 21:52 Dose: Not Given Morphine Sulfate (Morphine Sulfate) 2 mg IVPUSH Q6H PRN PRN Reason: PAIN LEVEL 1-5 Last Admin: 05/26/17 18:36 Dose: 2 mg Multivit/Ca Carb/B Cmplx/FA/Prenat (Nephro-Pancho -) 1 tablet PO DAILY [facility] Last Admin: 06/06/17 10:22 Dose: 1 tablet Pantoprazole Sodium (Protonix Iv) 40 mg IVPUSH BID [facility] Last Admin: 06/06/17 21:59 Dose: 40 mg - Objective Vital Signs: Vital Signs Temperature 98.4 F 06/07/17 02:00 Pulse Rate 84 06/07/17 07:30 Respiratory Rate 14 06/07/17 07:30 Blood Pressure 122/61 06/07/17 06:00 O2 Sat by Pulse Oximetry (%) 100 06/07/17 07:30 Constitutional: Yes: No Distress Cardiovascular: Yes: Regular Rate and Rhythm, Murmur Respiratory: Yes: Diminished, Mechanically Ventilated Gastrointestinal: Yes: Soft, Abdomen, Obese, Other (anasarca). No: Tenderness Extremities: Yes: Other (dry gangrene feet) Edema: No Labs: CBC, BMP 06/07/17 05:45 06/07/17 05:45 INR, PTT INR 1.11 (0.82-1.09) 06/06/17 05:30 Fibrinogen 411.0 mg/dL (238-498) D 06/06/17 05:30 Problem List - Problems (1) Anemia Code(s): D64.9 - ANEMIA, UNSPECIFIED (2) CAD (coronary artery disease) Code(s): I25.10 - ATHSCL HEART DISEASE OF [place] CORONARY ARTERY W/O ANG PCTRS Qualifiers: Coronary Disease-Associated Artery/Lesion type: [place] artery Associated angina: without angina (3) ESRD (end stage renal disease) Code(s): N18.6 - END STAGE RENAL DISEASE (4) GI bleed Code(s): K92.2 - GASTROINTESTINAL HEMORRHAGE, UNSPECIFIED (5) Gangrene Code(s): I96 - GANGRENE, NOT ELSEWHERE CLASSIFIED (6) H/O heart valve replacement with bioprosthetic valve Code(s): Z95.3 - PRESENCE OF XENOGENIC HEART VALVE (7) Hx of CABG Code(s): Z95.1 - PRESENCE OF AORTOCORONARY BYPASS GRAFT (8) Lower GI bleed Code(s): K92.2 - GASTROINTESTINAL HEMORRHAGE, UNSPECIFIED (9) Sepsis Code(s): A41.9 - SEPSIS, UNSPECIFIED ORGANISM Assessment/Plan A/P Hypovolemic shock GI bleeding ESRD on HD CAD , s/p CABG, MV and TV replacement AMS Gangrene of rt foot and left ring finger hypothermia-- on Solucortef thrombocytopenia -- off pressors --if unable to wean - will need trach -- CBC stable --off iv antibiotics -- cultures negative
[2017-06-07 10:16] LABS: ANISOCYTOSIS 2+; MACROCYTOSIS 2+; OVALOCYTE 1+; PLATELET ESTIMATE DECREASED; TARGET CELLS 3+; TEAR DROP CELLS 1+
[2017-06-07] MEDS ORDERED: PT OWN MED DRAWER 7, Y5N ONE (12:02)
[2017-06-07] MEDS: PANTOPRAZOLE SODIUM 40 MG VIAL IVPUSH SCH ×2 (12:10→21:34)
[2017-06-07] MEDS: CALCITRIOL 0.25 MCG CAPSULE (FP) PO SCH (12:10)
[2017-06-07] MEDS: VITAMIN B COMP W-C 1 EA TABLET PO SCH (12:10)
[2017-06-07] MEDS: AMINO ACIDS/PROTEIN HYDROLYS 30 ML LIQUID.PKT PO SCH (12:11)
[2017-06-07] MEDS: MIDODRINE HCL 5 MG TABLET PO SCH ×3 (12:11→19:04)
[2017-06-07 13:24] LABS: MEAN PLT VOLUME 11.1 fl (7.5-11.1); PLATELET COUNT 41 K/MM3 (134-434)
[2017-06-07] MEDS ORDERED: HEMOQUE CONTROL SOLUTION ONE (17:00)
[2017-06-07] MEDS: CHLORHEXIDINE GLUCONATE 4% CLEANSER FOR DECOLONIZATION TP SCH (21:34)
[2017-06-07] MEDS: MOMETASONE FUROATE 220 MCG/IH INHALER IH SCH (21:34)
[2017-06-08] MEDS: HYDROCORTISONE SOD SUCCINATE 100 MG/2 ML VIAL IVPB SCH ×3 (02:00→18:41)
[2017-06-08] MEDS: ALBUTEROL SO4 2.5/IPRATROPIUM 0.5 INH SOL 3 ML VIAL.NEB. NEB SCH ×3 (02:19→09:45)
[2017-06-08] MEDS: PROPOFOL 1,000,000 MCG/100 ML VIAL IVPB SCH ×2 (03:30→11:49)
[2017-06-08] MEDS: GABAPENTIN 100 MG CAPSULE (FP) NGT SCH ×3 (05:22→22:13)
[2017-06-08] MEDS: INSULIN SLIDING SCALE (NOVOLOG) 1 VIAL SQ SCH ×4 (06:11→22:29)
[2017-06-08 06:21] LABS: HEMATOCRIT 26.4 % (32.4-45.2); HEMOGLOBIN 8.7 GM/dL (10.7-15.3); MCH 27.1 pg (25.7-33.7); MCHC 32.9 g/dl (32.0-36.0); MEAN CELL VOLUME 82.3 fl (80-96); MEAN PLT VOLUME 9.9 fl (7.5-11.1); PLATELET COUNT 48 K/MM3 (134-434); RDW 20.8 % (11.6-15.6); WHITE BLOOD COUNT 6.6 K/mm3 (4.0-10.0)
[2017-06-08 06:34] LABS: ANION GAP 15 (8-16); BILIRUBIN,TOTAL 1.7 mg/dL (0.2-1.0); BLOOD UREA NITROGEN 49 mg/dL (7-18); CALCIUM 8.5 mg/dL (8.5-10.1); CHLORIDE 100 mmol/L (98-107); CO2 27 mmol/L (21-32); CREATININE 2.5 mg/dL (0.55-1.02); GLUCOSE,RANDOM 157 mg/dL (74-106); POTASSIUM 3.7 mmol/L (3.5-5.1); SGOT/AST 24 U/L (15-37); SGPT/ALT 16 U/L (12-78); SODIUM 142 mmol/L (136-145); TOT PROT 5.4 g/dl (6.4-8.2)
[2017-06-08 06:35] LABS: ALK PHOS 150 U/L (45-117)
--- NOTE | 2017-06-08 09:34 | PN ---
Progress Note (short form) - Note Progress Note: SUBJECTIVE: Patient seen and examined in the ICU. 24HR: remains Off pressors afebrile failed PS trial, RR 30s, TV < 150 Vital Signs Temp 98.6 F 06/08/17 02:00 Pulse 80 06/08/17 08:44 Resp 17 06/08/17 08:44 BP 116/56 06/08/17 08:00 Pulse Ox 100 06/08/17 08:44 Intake & Output 06/07/17 06/07/17 06/08/17 11:59 23:59 11:59 Intake Total 319 576 285 Output Total 0 0 0 Balance 319 576 285 Weight 81.221 kg 81.284 kg Intake: IV 49 56 35 DIPRIVAN - 1,000,000 mcg 49 56 35 In 100 ml @ 5 MCG/KG/MIN 2.754 mls/hr IVPB TITR [facility] Rx#:[id number] Tube Feeding 210 480 210 Tube Irrigant 60 40 40 Output: Urine 0 0 0 Void 0 0 0 Other: Voiding Method Diaper Weight Measurement Method [facility] Built in [facility] Active Medications Albuterol/Ipratropium (Duoneb -) 1 amp NEB Q4HPO [facility] Last Admin: 06/08/17 06:52 Dose: 1 amp Amino Acids (Prosource No Carb Liquid Pkt) 30 ml PO DAILY [facility] Last Admin: 06/07/17 12:11 Dose: 30 ml Calcitriol (Rocaltrol -) 0.25 mcg PO DAILY [facility] Last Admin: 06/07/17 12:10 Dose: 0.25 mcg Chlorhexidine Gluconate (Hibiclens For Decolonization -) 1 applic TP HS [facility] Last Admin: 06/07/17 21:34 Dose: 1 applic Gabapentin (Neurontin -) 100 mg NGT TID [facility] Last Admin: 06/08/17 05:22 Dose: 100 mg Hydrocortisone Sodium Succinate (Solu-Cortef -) 25 mg IVPB Q8H-IV [facility] Last Admin: 06/08/17 02:00 Dose: 25 mg Propofol (Diprivan -) 1,000,000 mcg in 100 mls @ 2.754 mls/hr IVPB TITR [facility]; 5 MCG/KG/MIN PRN Reason: Protocol Last Admin: 06/08/17 03:30 Dose: 10 mcg/kg/min, 5.508 mls/hr Sodium Chloride (Normal Saline -) 250 mls @ 3,000 mls/hr IV PRN PRN PRN Reason: Hypotension during Dialysis Stop: 06/06/17 15:36 Insulin Aspart (Novolog Vial Sliding Scale -) 1 vial SQ ACHS [facility] PRN Reason: Protocol Last Admin: 06/08/17 06:11 Dose: 4 units Midodrine (Proamatine -) 5 mg PO TID-MID [facility] Last Admin: 06/07/17 19:04 Dose: 5 mg Mometasone Furoate (Asmanex 220mcg -) 1 puff IH HS [facility] Last Admin: 06/07/17 21:34 Dose: Not Given Morphine Sulfate (Morphine Sulfate) 2 mg IVPUSH Q6H PRN PRN Reason: PAIN LEVEL 1-5 Last Admin: 05/26/17 18:36 Dose: 2 mg Multivit/Ca Carb/B Cmplx/FA/Prenat (Nephro-Pancho -) 1 tablet PO DAILY [facility] Last Admin: 06/07/17 12:10 Dose: 1 tablet Pantoprazole Sodium (Protonix Iv) 40 mg IVPUSH BID [facility] Last Admin: 06/07/17 21:34 Dose: 40 mg Gen: intubated, lightly sedated, +anasarca Heart: RRR Lung: decreased breath sounds at the bases Abd: soft, nontender Ext: + edema, dry gangrene both LE, some weeping A/P Acute Hypoxic Respiratory Failure Shock - ?Septic vs Cardiogenic GI Bleed +Troponins likely [place]and Ischemia LV Systolic Dysfunction Volume Overload Thrombocytopenia Coagulopathy Gangrene CAD s/p CABG ESRD on HD HTN DM - Remains off ABX - monitoring off pressors/inotropes, maintain MAP >65 - HD per renal with ultrafiltration, HD likely tomorrow - cont steroid taper, transition to Oral pred post trach - Normal transfusion thresholds - hold sedation to assess mental status daily - not candidate for weaning - enteral feeds - DVT/GI prophylaxis - continue ICU monitoring - needs trach or palliative extubation - ICU monitoring [facility] [id number] 35min CCT Problem List - Problems (1) Anemia Code(s): D64.9 - ANEMIA, UNSPECIFIED (2) CAD (coronary artery disease) Code(s): I25.10 - ATHSCL HEART DISEASE OF [place] CORONARY ARTERY W/O ANG PCTRS Qualifiers: Coronary Disease-Associated Artery/Lesion type: [place] artery Associated angina: without angina (3) ESRD (end stage renal disease) Code(s): N18.6 - END STAGE RENAL DISEASE (4) GI bleed Code(s): K92.2 - GASTROINTESTINAL HEMORRHAGE, UNSPECIFIED (5) Hx of CABG Code(s): Z95.1 - PRESENCE OF AORTOCORONARY BYPASS GRAFT
--- NOTE | 2017-06-08 09:50 | PN ---
Progress Note (short form) - Note Progress Note: RENAL pt intubated and sedated on 40 percent fio2 comfortable Last Vital Signs Temp Pulse Resp BP Pulse Ox 98.6 F 80 17 116/56 100 06/08/17 02:00 06/08/17 08:44 06/08/17 08:44 06/08/17 08:00 06/08/17 08:44 lungs bilat air entry cvs s1s2 rr abd soft ext +edema in all extremities, right foot has dry gangrene has an art-line CBC, BMP 06/08/17 05:50 06/08/17 05:50 Current Medications Generic Name Dose Route Start Last Admin Trade Name Freq PRN Reason Stop Dose Admin Albuterol/Ipratropium 1 amp 05/21/17 18:00 06/08/17 06:52 Duoneb - NEB 1 amp Q4HPO [facility] Administration Amino Acids 30 ml 05/26/17 10:00 06/07/17 12:11 Prosource No Carb Liquid Pkt PO 30 ml DAILY [facility] Administration Calcitriol 0.25 mcg 05/23/17 10:45 06/07/17 12:10 Rocaltrol - PO 0.25 mcg DAILY [facility] Administration Chlorhexidine Gluconate 1 applic 05/21/17 22:00 06/07/17 21:34 Hibiclens For Decolonization - TP 1 applic HS [facility] Administration Gabapentin 100 mg 05/26/17 22:00 06/08/17 05:22 Neurontin - NGT 100 mg TID [facility] Administration Hydrocortisone Sodium Succinate 25 mg 06/07/17 09:26 06/08/17 02:00 Solu-Cortef - IVPB 25 mg Q8H-IV [facility] Administration Propofol 1,000,000 mcg in 100 mls @ 2.754 mls/hr 05/27/17 11:15 06/08/17 03: 30 Diprivan - IVPB 10 mcg/kg/min TITR RU[facility] 5.508 mls/hr Protocol Administration 5 MCG/KG/MIN Sodium Chloride 250 mls @ 3,000 mls/hr 06/05/17 15:36 Normal Saline - IV 06/06/17 15:36 PRN PRN Hypotension during Dialysis Insulin Aspart 1 vial 05/22/17 22:00 06/08/17 06:11 Novolog Vial Sliding Scale - SQ 4 units ACHS [facility] Administration Protocol Midodrine 5 mg 05/21/17 23:15 06/07/17 19:04 Proamatine - PO 5 mg TID-MID [facility] Administration Mometasone Furoate 1 puff 05/21/17 22:00 06/07/17 21:34 Asmanex 220mcg - IH Not Given HS [facility] Morphine Sulfate 2 mg 05/26/17 15:27 05/26/17 18:36 Morphine Sulfate IVPUSH 2 mg Q6H PRN Administration PAIN LEVEL 1-5 Multivit/Ca Carb/B Cmplx/FA/Prenat 1 tablet 05/22/17 10:00 06/07/17 12:10 Nephro-Pancho - PO 1 tablet DAILY [facility] Administration Pantoprazole Sodium 40 mg 05/25/17 10:00 06/07/17 21:34 Protonix Iv IVPUSH 40 mg BID [facility] Administration Impression 1. ESRD 2. GI bleed likely from hemorrhoids 3. hemorrhoids 4. anemia 5. CAD 6. s/p CABG 7. DM 8. hypotension 9. lactic acidosis 10. volume overload 11. resp failure requiring intubation Plan weaning attempts per ICU staff can increase midodrine to 10 tid trial of lasix if bp improves once stable will need amputation would try to taper hydrocortisone concerned about use of art line in an HD patient MV
[2017-06-08] MEDS: CALCITRIOL 0.25 MCG CAPSULE (FP) PO SCH (10:05)
[2017-06-08] MEDS: VITAMIN B COMP W-C 1 EA TABLET PO SCH (10:05)
[2017-06-08] MEDS: PANTOPRAZOLE SODIUM 40 MG VIAL IVPUSH SCH ×2 (10:05→22:13)
[2017-06-08] MEDS: MIDODRINE HCL 5 MG TABLET PO SCH ×3 (10:06→18:42)
[2017-06-08] MEDS: AMINO ACIDS/PROTEIN HYDROLYS 30 ML LIQUID.PKT PO SCH (10:06)
--- NOTE | 2017-06-08 11:09 | PN ---
Progress Note, Physician Chief Complaint: pt is awake , opens eyes when asked but not moving her fingers no distress unable to wean - Current Medication List Current Medications: Active Medications Albuterol/Ipratropium (Duoneb -) 1 amp NEB Q4HPO [facility] Last Admin: 06/08/17 06:52 Dose: 1 amp Amino Acids (Prosource No Carb Liquid Pkt) 30 ml PO DAILY [facility] Last Admin: 06/08/17 10:06 Dose: 30 ml Calcitriol (Rocaltrol -) 0.25 mcg PO DAILY [facility] Last Admin: 06/08/17 10:05 Dose: 0.25 mcg Chlorhexidine Gluconate (Hibiclens For Decolonization -) 1 applic TP HS [facility] Last Admin: 06/07/17 21:34 Dose: 1 applic Gabapentin (Neurontin -) 100 mg NGT TID [facility] Last Admin: 06/08/17 05:22 Dose: 100 mg Hydrocortisone Sodium Succinate (Solu-Cortef -) 25 mg IVPB Q8H-IV [facility] Last Admin: 06/08/17 10:05 Dose: 25 mg Propofol (Diprivan -) 1,000,000 mcg in 100 mls @ 2.754 mls/hr IVPB TITR [facility]; 5 MCG/KG/MIN PRN Reason: Protocol Last Admin: 06/08/17 03:30 Dose: 10 mcg/kg/min, 5.508 mls/hr Sodium Chloride (Normal Saline -) 250 mls @ 3,000 mls/hr IV PRN PRN PRN Reason: Hypotension during Dialysis Stop: 06/06/17 15:36 Insulin Aspart (Novolog Vial Sliding Scale -) 1 vial SQ ACHS [facility] PRN Reason: Protocol Last Admin: 06/08/17 06:11 Dose: 4 units Midodrine (Proamatine -) 5 mg PO TID-MID [facility] Last Admin: 06/08/17 10:06 Dose: 5 mg Mometasone Furoate (Asmanex 220mcg -) 1 puff IH HS [facility] Last Admin: 06/07/17 21:34 Dose: Not Given Morphine Sulfate (Morphine Sulfate) 2 mg IVPUSH Q6H PRN PRN Reason: PAIN LEVEL 1-5 Last Admin: 05/26/17 18:36 Dose: 2 mg Multivit/Ca Carb/B Cmplx/FA/Prenat (Nephro-Pancho -) 1 tablet PO DAILY [facility] Last Admin: 06/08/17 10:05 Dose: 1 tablet Pantoprazole Sodium (Protonix Iv) 40 mg IVPUSH BID [facility] Last Admin: 06/08/17 10:05 Dose: 40 mg - Objective Vital Signs: Vital Signs Temperature 98.1 F 06/08/17 09:59 Pulse Rate 84 06/08/17 09:59 Respiratory Rate 15 06/08/17 09:59 Blood Pressure 120/58 06/08/17 09:59 O2 Sat by Pulse Oximetry (%) 100 06/08/17 08:44 Constitutional: Yes: No Distress Cardiovascular: Yes: Regular Rate and Rhythm, Murmur Respiratory: Yes: Diminished, Mechanically Ventilated Gastrointestinal: Yes: Normal Bowel Sounds, Soft, Abdomen, Obese. No: Distention, Tenderness Extremities: Yes: Other (B/L feet gangrene) Edema: No Labs: CBC, BMP 06/08/17 05:50 06/08/17 05:50 INR, PTT INR 1.11 (0.82-1.09) 06/06/17 05:30 Fibrinogen 411.0 mg/dL (238-498) D 06/06/17 05:30 Problem List - Problems (1) Anemia Code(s): D64.9 - ANEMIA, UNSPECIFIED (2) CAD (coronary artery disease) Code(s): I25.10 - ATHSCL HEART DISEASE OF [place] CORONARY ARTERY W/O ANG PCTRS Qualifiers: Coronary Disease-Associated Artery/Lesion type: [place] artery Associated angina: without angina (3) ESRD (end stage renal disease) Code(s): N18.6 - END STAGE RENAL DISEASE (4) GI bleed Code(s): K92.2 - GASTROINTESTINAL HEMORRHAGE, UNSPECIFIED (5) Gangrene Code(s): I96 - GANGRENE, NOT ELSEWHERE CLASSIFIED (6) H/O heart valve replacement with bioprosthetic valve Code(s): Z95.3 - PRESENCE OF XENOGENIC HEART VALVE (7) Hx of CABG Code(s): Z95.1 - PRESENCE OF AORTOCORONARY BYPASS GRAFT (8) Lower GI bleed Code(s): K92.2 - GASTROINTESTINAL HEMORRHAGE, UNSPECIFIED (9) Sepsis Code(s): A41.9 - SEPSIS, UNSPECIFIED ORGANISM Assessment/Plan A/P Hypovolemic shock GI bleeding ESRD on HD CAD , s/p CABG, MV and TV replacement AMS Gangrene of rt foot and left ring finger hypothermia-- on Solucortef thrombocytopenia -- off pressors --if unable to wean - will need trach -- CBC stable --off iv antibiotics -- cultures negative
[2017-06-08] MEDS ORDERED: ALBUTEROL SO4 2.5/IPRATROPIUM 0.5 INH SOL 3 ML VIAL.NEB. NEB PRN (13:43)
[2017-06-08] MEDS ORDERED: PROPOFOL 1,000,000 MCG/100 ML VIAL ONE (21:43)
[2017-06-08] MEDS: CHLORHEXIDINE GLUCONATE 4% CLEANSER FOR DECOLONIZATION TP SCH (22:13)
[2017-06-09 06:21] LABS: HEMATOCRIT 24.2 % (32.4-45.2); MCH 27.3 pg (25.7-33.7); MCHC 32.8 g/dl (32.0-36.0); MEAN CELL VOLUME 83.1 fl (80-96); MEAN PLT VOLUME 12.2 fl (7.5-11.1); PLATELET COUNT 62 K/MM3 (134-434); RBC 2.91 M/mm3 (3.60-5.2); RDW 20.2 % (11.6-15.6); WHITE BLOOD COUNT 7.1 K/mm3 (4.0-10.0)
[2017-06-09] MEDS: HYDROCORTISONE SOD SUCCINATE 100 MG/2 ML VIAL IVPB SCH ×2 (06:25→18:42)
[2017-06-09] MEDS: GABAPENTIN 100 MG CAPSULE (FP) NGT SCH ×3 (06:25→22:28)
[2017-06-09] MEDS: INSULIN SLIDING SCALE (NOVOLOG) 1 VIAL SQ SCH ×4 (06:26→22:39)
[2017-06-09 07:10] LABS: ALBUMIN 1.7 g/dl (3.4-5.0); ANION GAP 11 (8-16); BILIRUBIN,TOTAL 1.3 mg/dL (0.2-1.0); BLOOD UREA NITROGEN 63 mg/dL (7-18); CHLORIDE 102 mmol/L (98-107); CO2 28 mmol/L (21-32); CREATININE 2.8 mg/dL (0.55-1.02); GLUCOSE,RANDOM 211 mg/dL (74-106); POTASSIUM 3.6 mmol/L (3.5-5.1); SGOT/AST 30 U/L (15-37); SGPT/ALT 18 U/L (12-78); SODIUM 141 mmol/L (136-145); TOT PROT 4.9 g/dl (6.4-8.2)
[2017-06-09 07:11] LABS: ALK PHOS 175 U/L (45-117)
--- NOTE | 2017-06-09 08:38 | PN ---
Progress Note (short form) - Note Progress Note: Pt seen/ examined chart reviewed. remains vent dependent . all f/u noted Vital Signs Temp 98.9 F 06/09/17 06:00 Pulse 89 06/09/17 08:25 Resp 14 06/09/17 08:25 BP 100/51 06/09/17 06:00 Pulse Ox 100 06/09/17 08:25 Intake & Output 06/08/17 06/08/17 06/09/17 11:59 23:59 11:59 Intake Total 285 520 526.8 Output Total 0 Balance 285 520 526.8 Weight 179 lb 3.2 oz 184 lb 8.43 oz Intake: IV 35 100 106.8 DIPRIVAN - 1,000,000 mcg 35 100 106.8 In 100 ml @ 5 MCG/KG/MIN 2.754 mls/hr IVPB TITR RU[facility] Rx#:[id number] Tube Feeding 210 360 360 Tube Irrigant 40 60 60 Output: Urine 0 Void 0 Other: Voiding Method Diaper Diaper Weight Measurement Method Built in [facility] Built in [facility] Active Medications Albuterol/Ipratropium (Duoneb -) 1 amp NEB Q6H PRN PRN Reason: WHEEZING Amino Acids (Prosource No Carb Liquid Pkt) 30 ml PO DAILY [facility] Last Admin: 06/08/17 10:06 Dose: 30 ml Calcitriol (Rocaltrol -) 0.25 mcg PO DAILY [facility] Last Admin: 06/08/17 10:05 Dose: 0.25 mcg Chlorhexidine Gluconate (Hibiclens For Decolonization -) 1 applic TP HS [facility] Last Admin: 06/08/17 22:13 Dose: 1 applic Gabapentin (Neurontin -) 100 mg NGT TID [facility] Last Admin: 06/09/17 06:25 Dose: 100 mg Hydrocortisone Sodium Succinate (Solu-Cortef -) 25 mg IVPB Q12H [facility] Last Admin: 06/09/17 06:25 Dose: 25 mg Propofol (Diprivan -) 1,000,000 mcg in 100 mls @ 2.754 mls/hr IVPB TITR [facility]; 5 MCG/KG/MIN PRN Reason: Protocol Last Admin: 06/08/17 11:49 Dose: 10 mcg/kg/min, 5.508 mls/hr Sodium Chloride (Normal Saline -) 250 mls @ 3,000 mls/hr IV PRN PRN PRN Reason: Hypotension during Dialysis Stop: 06/06/17 15:36 Insulin Aspart (Novolog Vial Sliding Scale -) 1 vial SQ ACHS [facility] PRN Reason: Protocol Last Admin: 06/09/17 06:26 Dose: 6 units Midodrine (Proamatine -) 5 mg PO TID-MID [facility] Last Admin: 06/08/17 18:42 Dose: 5 mg Multivit/Ca Carb/B Cmplx/FA/Prenat (Nephro-Pancho -) 1 tablet PO DAILY [facility] Last Admin: 06/08/17 10:05 Dose: 1 tablet Pantoprazole Sodium (Protonix Iv) 40 mg IVPUSH BID [facility] Last Admin: 06/08/17 22:13 Dose: 40 mg CBC, BMP 06/09/17 05:30 06/09/17 05:30 Physical Constitutional: Yes: opens eyes . vent dependent Cardiovascular: Yes: Regular Rate and Rhythm, Murmur Respiratory: Yes: Diminished, Mechanically Ventilated Gastrointestinal: Yes: Normal Bowel Sounds, Soft, Abdomen, Obese. No: Distention, Tenderness Extremities: Yes: Other (B/L feet gangrene) Edema: No Labs: Assessment/Plan Hypovolemic shock GI bleeding ESRD on HD CAD , s/p CABG, MV and TV replacement AMS Gangrene of rt foot and left ring finger hypothermia-- on Solucortef thrombocytopenia -- overall condition same. -- continue present care -- failed weaning - trach likely - discussed with nursing staff/ icu team. - overall condition remains poor. - will follow. Problem List - Problems (1) Respiratory failure Code(s): J96.90 - RESPIRATORY FAILURE, UNSP, UNSP W HYPOXIA OR HYPERCAPNIA (2) Coagulopathy Code(s): D68.9 - COAGULATION DEFECT, UNSPECIFIED (3) GI bleed Code(s): K92.2 - GASTROINTESTINAL HEMORRHAGE, UNSPECIFIED (4) Gangrene Code(s): I96 - GANGRENE, NOT ELSEWHERE CLASSIFIED (5) Hx of CABG Code(s): Z95.1 - PRESENCE OF AORTOCORONARY BYPASS GRAFT
[2017-06-09] MEDS ORDERED: SODIUM CHLORIDE 250 ML IV PRN ×2 (09:25→11:30)
[2017-06-09] MEDS ORDERED: NOREPINEPHRINE BITARTRATE 8,000 MCG in DEXTROSE 5%-WATER - 492 ML IV SCH (09:45)
--- NOTE | 2017-06-09 09:57 | PN ---
Physical Exam: SUBJECTIVE: Patient seen and examined Pt's blood pressures have decreased to as low as 50s overnight and this am off of pressors. This am, pt still sedated on vent, not following commands. OBJECTIVE: Vital Signs Period Temp Pulse Resp BP Sys/Ceron Pulse Ox Last 24 Hr 98 F-98.9 F 78-89 14-15 100-120/51-65 100-100 GENERAL: middle aged female, sedated on vent, NG tube in place, minimally responsive HEENT: vent and NG tube in place LUNGS: anterior lung sounds clear HEART: tachycardia, no murmurs ABDOMEN: soft, non-distended EXTREMITIES: 2+ edema in all extremities, gangrenous LEs NEUROLOGICAL: sedated on vent Laboratory Results - last 24 hr 06/05/17 06/05/17 06/05/17 05:27 16:23 22:10 WBC RBC Hgb Hct MCV MCH MCHC RDW Plt Count MPV Platelet Comment Sodium Potassium Chloride Carbon Dioxide Anion Gap BUN Creatinine Creat Clearance w eGFR POC Glucometer 223.91707 285.31518 [phone] Random Glucose Calcium Total Bilirubin AST ALT Alkaline Phosphatase Total Protein Albumin 06/06/17 06/06/17 06/06/17 06:06 11:23 16:13 WBC RBC Hgb Hct MCV MCH MCHC RDW Plt Count MPV Platelet Comment Sodium Potassium Chloride Carbon Dioxide Anion Gap BUN Creatinine Creat Clearance w eGFR POC Glucometer 142.87297 183.40727 [phone] Random Glucose Calcium Total Bilirubin AST ALT Alkaline Phosphatase Total Protein Albumin 06/06/17 06/07/17 06/07/17 21:52 05:36 06:06 WBC RBC Hgb Hct MCV MCH MCHC RDW Plt Count MPV Platelet Comment Sodium Potassium Chloride Carbon Dioxide Anion Gap BUN Creatinine Creat Clearance w eGFR POC Glucometer 216.44404 279.03056 269.86804 Random Glucose Calcium Total Bilirubin AST ALT Alkaline Phosphatase Total Protein Albumin 06/07/17 06/07/17 06/07/17 12:25 17:47 21:37 WBC RBC Hgb Hct MCV MCH MCHC RDW Plt Count MPV Platelet Comment Sodium Potassium Chloride Carbon Dioxide Anion Gap BUN Creatinine Creat Clearance w eGFR POC Glucometer 252.29279 203.27163 176.74242 Random Glucose Calcium Total Bilirubin AST ALT Alkaline Phosphatase Total Protein Albumin 06/08/17 06/08/17 06/08/17 05:50 06:10 11:51 WBC RBC Hgb Hct MCV MCH MCHC RDW Plt Count MPV Platelet Comment No clumping noted Sodium Potassium Chloride Carbon Dioxide Anion Gap BUN Creatinine Creat Clearance w eGFR POC Glucometer 201.09526 [phone] Random Glucose Calcium Total Bilirubin AST ALT Alkaline Phosphatase Total Protein Albumin 06/08/17 06/09/17 06/09/17 17:04 05:30 05:30 WBC 7.1 RBC 2.91 L Hgb 8.0 L Hct 24.2 L MCV 83.1 MCH 27.3 MCHC 32.8 RDW 20.2 H Plt Count 62 L D MPV 12.2 H D Platelet Comment Sodium 141 Potassium 3.6 Chloride 102 Carbon Dioxide 28 Anion Gap 11 BUN 63 H Creatinine 2.8 H Creat Clearance w eGFR 17.36 POC Glucometer 261.08156 Random Glucose 211 H Calcium 8.0 L Total Bilirubin 1.3 H D AST 30 ALT 18 Alkaline Phosphatase 175 H Total Protein 4.9 L Albumin 1.7 L Active Medications Generic Name Dose Route Start Last Admin Trade Name Freq PRN Reason Stop Dose Admin Albumin Human 12.5 gm 06/09/17 09:30 Albumin Human 25% IVPB Q30M RUEL Albuterol/Ipratropium 1 amp 06/08/17 13:43 Duoneb - NEB Q6H PRN WHEEZING Amino Acids 30 ml 05/26/17 10:00 06/08/17 10:06 Prosource No Carb Liquid Pkt PO 30 ml DAILY RUEL Administration Calcitriol 0.25 mcg 05/23/17 10:45 06/08/17 10:05 Rocaltrol - PO 0.25 mcg DAILY RUEL Administration Chlorhexidine Gluconate 1 applic 05/21/17 22:00 06/08/17 22:13 Hibiclens For Decolonization - TP 1 applic HS RUEL Administration Gabapentin 100 mg 05/26/17 22:00 06/09/17 06:25 Neurontin - NGT 100 mg TID RUEL Administration Hydrocortisone Sodium Succinate 25 mg 06/08/17 18:00 06/09/17 06:25 Solu-Cortef - IVPB 25 mg Q12H RUEL Administration Propofol 1,000,000 mcg in 100 mls @ 2.754 mls/hr 05/27/17 11:15 06/08/17 11: 49 Diprivan - IVPB 10 mcg/kg/min TITR RUEL 5.508 mls/hr Protocol Administration 5 MCG/KG/MIN Sodium Chloride 250 mls @ 3,000 mls/hr 06/05/17 15:36 Normal Saline - IV 06/06/17 15:36 PRN PRN Hypotension during Dialysis Sodium Chloride 250 mls @ 3,000 mls/hr 06/09/17 09:25 Normal Saline - IV 06/10/17 09:25 PRN PRN Hypotension during Dialysis Insulin Aspart 1 vial 05/22/17 22:00 06/09/17 06:26 Novolog Vial Sliding Scale - SQ 6 units ACHS RUEL Administration Protocol Midodrine 5 mg 05/21/17 23:15 06/08/17 18:42 Proamatine - PO 5 mg TID-MID RUEL Administration Multivit/Ca Carb/B Cmplx/FA/Prenat 1 tablet 05/22/17 10:00 06/08/17 10:05 Nephro-Pancho - PO 1 tablet DAILY RUEL Administration Pantoprazole Sodium 40 mg 05/25/17 10:00 06/08/17 22:13 Protonix Iv IVPUSH 40 mg BID RUEL Administration ASSESSMENT/PLAN: 56F with PMH of DM, HTN, MO (s/p CABG 03/2017), ESRD (on HD MW), and hemorrhoids , admitted to the ICU with shock, coagulopathy, currently off of pressors and abx, failing weaning trials off of vent. CV # shock - was resolved, but currently MAPs between 50- low 60s. If persistently decreased below 65, start levo. F/u CVP to differentiate septic vs. cardiogenic etiology. - ID (Dr. Shen) recs appreciated, off of abx for several days - per renal, increase midodrine to 10mg TID and taper hydrocortisone, currently at 25mg BID # CAD (s/p CABG) and systolic CHF - Cardiology (Dr. Stapleton) recs appreciated: no AC 2/2 severe anemia, thrombocytopenia, and recent bleed requiring transfusion # dry gangrene to susan feet - continue to monitor - amputation once stable Resp # acute hypoxic respiratory failure - intubated on vent, taper steroids. Change to prednisone after trach. - persistent failure at spontaneous breathing trials. Per Dr. Parish, trach scheduled for . Pt made NPO after midnight. - continue duonebs and Asmanex Nephro # ESRD with HD - anuric - Nephrology (Dr. Plummer) recs appreciated. HD to be done today - avoid nephrotoxic agents GI # GI bleed - likely 2/2 hemorrhoids - hgb at 8, down from 8.7 yesterday - transfuse as needed Endo # DM - BGMs - SSI - continue Neurontin FEN/ppx - Fluids: via NG tube - Electrolytes: wnl - Nutrition: Nepro to goal of 30 ml/hr x 24 hrs, Prosource 30ml daily - DVT chemoprophylaxis: held 2/2 thrombocytopenia and mechanical ppx held 2/ 2 PAD - GI ppx with Protonix Dispo - Full Code Case discussed with attending, Dr. Vargas. -Den Dsouza MD PGY1 ICU Team Visit type - Emergency Visit Emergency Visit: Yes ED Registration Date: 05/21/17 Care time: The patient presented to the Emergency Department on the above date and was hospitalized for further evaluation of their emergent condition. - New Patient This patient is new to me today: No - Critical Care Critical Care patient: Yes Total Critical Care Time (in minutes): 36 Critical Care Statement: The care of this patient involved high complexity decision making to prevent further life threatening deterioration of the patient 's condition and/or to evaluate & treat vital organ system(s) failure or risk of failure.
[2017-06-09] MEDS ORDERED: ALBUMIN HUMAN 25% 12.5 GM/50 ML VIAL IVPB ONE (10:15)
[2017-06-09] MEDS: PANTOPRAZOLE SODIUM 40 MG VIAL IVPUSH SCH ×2 (10:56→22:28)
--- NOTE | 2017-06-09 13:20 | PN ---
Progress Note, Physician History of Present Illness: Pt seen and examined at bedside. She remains in the ICU. Pt is intubated. - Current Medication List Current Medications: Active Medications Albumin Human (Albumin Human 25%) 12.5 gm IVPB Q30M [facility] Albuterol/Ipratropium (Duoneb -) 1 amp NEB Q6H PRN PRN Reason: WHEEZING Amino Acids (Prosource No Carb Liquid Pkt) 30 ml PO DAILY [facility] Last Admin: 06/08/17 10:06 Dose: 30 ml Calcitriol (Rocaltrol -) 0.25 mcg PO DAILY [facility] Last Admin: 06/08/17 10:05 Dose: 0.25 mcg Chlorhexidine Gluconate (Hibiclens For Decolonization -) 1 applic TP HS [facility] Last Admin: 06/08/17 22:13 Dose: 1 applic Gabapentin (Neurontin -) 100 mg NGT TID [facility] Last Admin: 06/09/17 06:25 Dose: 100 mg Hydrocortisone Sodium Succinate (Solu-Cortef -) 25 mg IVPB Q12H [facility] Last Admin: 06/09/17 06:25 Dose: 25 mg Propofol (Diprivan -) 1,000,000 mcg in 100 mls @ 2.754 mls/hr IVPB TITR RUEL; 5 MCG/KG/MIN PRN Reason: Protocol Last Admin: 06/08/17 11:49 Dose: 10 mcg/kg/min, 5.508 mls/hr Sodium Chloride (Normal Saline -) 250 mls @ 3,000 mls/hr IV PRN PRN PRN Reason: Hypotension during Dialysis Insulin Aspart (Novolog Vial Sliding Scale -) 1 vial SQ ACHS RUEL PRN Reason: Protocol Last Admin: 06/09/17 06:26 Dose: 6 units Midodrine (Proamatine -) 10 mg PO TID-MID [facility] Multivit/Ca Carb/B Cmplx/FA/Prenat (Nephro-Pancho -) 1 tablet PO DAILY [facility] Last Admin: 06/08/17 10:05 Dose: 1 tablet Pantoprazole Sodium (Protonix Iv) 40 mg IVPUSH BID [facility] Last Admin: 06/09/17 10:56 Dose: 40 mg - Objective Vital Signs: Vital Signs Temperature 98.4 F 06/09/17 08:00 Pulse Rate 85 06/09/17 12:00 Respiratory Rate 14 06/09/17 12:00 Blood Pressure 92/41 06/09/17 12:00 O2 Sat by Pulse Oximetry (%) 100 06/09/17 11:32 Constitutional: Yes: Calm Eyes: Yes: Conjunctiva Clear HENT: Yes: Atraumatic Cardiovascular: Yes: S1, S2 Respiratory: Yes: Mechanically Ventilated Gastrointestinal: Yes: Soft Genitourinary: Yes: Incontinence Musculoskeletal: Yes: Muscle Weakness Edema: Yes Edema: LUE: 1+, RUE: 1+, LLE: 1+, RLE: 1+ Integumentary: Yes: Other (gangrene) Neurological: Yes: Lethargy Labs: CBC, BMP 06/09/17 05:30 06/09/17 05:30 INR, PTT INR 1.11 (0.82-1.09) 06/06/17 05:30 Fibrinogen 411.0 mg/dL (238-498) D 06/06/17 05:30 Problem List - Problems (1) ESRD (end stage renal disease) Code(s): N18.6 - END STAGE RENAL DISEASE (2) CAD (coronary artery disease) Code(s): I25.10 - ATHSCL HEART DISEASE OF [place] CORONARY ARTERY W/O ANG PCTRS Qualifiers: Coronary Disease-Associated Artery/Lesion type: [place] artery Associated angina: without angina (3) Hx of CABG Code(s): Z95.1 - PRESENCE OF AORTOCORONARY BYPASS GRAFT (4) Anemia Code(s): D64.9 - ANEMIA, UNSPECIFIED (5) GI bleed Code(s): K92.2 - GASTROINTESTINAL HEMORRHAGE, UNSPECIFIED Assessment/Plan Current Medications Generic Name Dose Route Start Last Admin Trade Name Freq PRN Reason Stop Dose Admin Albumin Human 12.5 gm 06/09/17 09:30 Albumin Human 25% IVPB Q30M RUEL Albuterol/Ipratropium 1 amp 06/08/17 13:43 Duoneb - NEB Q6H PRN WHEEZING Amino Acids 30 ml 05/26/17 10:00 06/08/17 10:06 Prosource No Carb Liquid Pkt PO 30 ml DAILY RUEL Administration Calcitriol 0.25 mcg 05/23/17 10:45 06/08/17 10:05 Rocaltrol - PO 0.25 mcg DAILY RUEL Administration Chlorhexidine Gluconate 1 applic 05/21/17 22:00 06/08/17 22:13 Hibiclens For Decolonization - TP 1 applic HS RUEL Administration Gabapentin 100 mg 05/26/17 22:00 06/09/17 06:25 Neurontin - NGT 100 mg TID RUEL Administration Hydrocortisone Sodium Succinate 25 mg 06/08/17 18:00 06/09/17 06:25 Solu-Cortef - IVPB 25 mg Q12H RUEL Administration Propofol 1,000,000 mcg in 100 mls @ 2.754 mls/hr 05/27/17 11:15 06/08/17 11: 49 Diprivan - IVPB 10 mcg/kg/min TITR RUEL 5.508 mls/hr Protocol Administration 5 MCG/KG/MIN Sodium Chloride 250 mls @ 3,000 mls/hr 06/09/17 10:23 Normal Saline - IV PRN PRN Hypotension during Dialysis Insulin Aspart 1 vial 05/22/17 22:00 06/09/17 06:26 Novolog Vial Sliding Scale - SQ 6 units ACHS RUEL Administration Protocol Midodrine 10 mg 06/09/17 12:15 Proamatine - PO TID-MID RUEL Multivit/Ca Carb/B Cmplx/FA/Prenat 1 tablet 05/22/17 10:00 06/08/17 10:05 Nephro-Pancho - PO 1 tablet DAILY RUEL Administration Pantoprazole Sodium 40 mg 05/25/17 10:00 06/09/17 10:56 Protonix Iv IVPUSH 40 mg BID RUEL Administration Impression 1. ESRD 2. GI bleed likely from hemorrhoids 3. hemorrhoids 4. anemia 5. CAD 6. s/p CABG 7. DM 8. hypotension 9. lactic acidosis 10. volume overload 11. resp failure requiring intubation Plan - will arrange for HD today - monitor bp - pt likely going for trache tomorrow - vascular follow up for lower ext gangrene - discussed with ICU team - monitor pulse ox - will follow Dr Plummer
--- NOTE | 2017-06-09 14:19 | PN ---
Teaching Attending Note Name of Resident: Den Dsouza ATTENDING PHYSICIAN STATEMENT I saw and evaluated the patient. I reviewed the resident's note and discussed the case with the resident. I agree with the resident's findings and plan as documented. SUBJECTIVE: Pt seen and examined in the ICU. Remains intubated, sedated. Hypotensive this AM without fevers. OBJECTIVE: Last Vital Signs Temp Pulse Resp BP Pulse Ox 98.4 F 85 14 92/41 100 06/09/17 08:00 06/09/17 12:00 06/09/17 13:36 06/09/17 12:00 06/09/17 11:32 Intake & Output 06/06/17 06/07/17 06/08/17 06/09/17 23:59 23:59 23:59 23:59 Intake Total 745 895 805 526.8 Output Total 0 0 0 Balance 745 895 805 526.8 Weight 86.409 kg 81.221 kg 81.284 kg 83.7 kg Gen: intubated, sedated Heart: RRR Lung: decreased breath sounds at the bases Abd: soft, nontender Ext: + edema CBC, BMP 06/09/17 05:30 06/09/17 05:30 Active Medications Albumin Human (Albumin Human 25%) 12.5 gm IVPB Q30M RUEL Albuterol/Ipratropium (Duoneb -) 1 amp NEB Q6H PRN PRN Reason: WHEEZING Amino Acids (Prosource No Carb Liquid Pkt) 30 ml PO DAILY [facility] BEDS AT [facility] Last Admin: 06/08/17 10:06 Dose: 30 ml Calcitriol (Rocaltrol -) 0.25 mcg PO DAILY RUEL Last Admin: 06/08/17 10:05 Dose: 0.25 mcg Chlorhexidine Gluconate (Hibiclens For Decolonization -) 1 applic TP HS RUEL Last Admin: 06/08/17 22:13 Dose: 1 applic Gabapentin (Neurontin -) 100 mg NGT TID RUEL Last Admin: 06/09/17 06:25 Dose: 100 mg Hydrocortisone Sodium Succinate (Solu-Cortef -) 25 mg IVPB Q12H RUEL Last Admin: 06/09/17 06:25 Dose: 25 mg Propofol (Diprivan -) 1,000,000 mcg in 100 mls @ 2.754 mls/hr IVPB TITR RUEL; 5 MCG/KG/MIN PRN Reason: Protocol Last Admin: 06/08/17 11:49 Dose: 10 mcg/kg/min, 5.508 mls/hr Sodium Chloride (Normal Saline -) 250 mls @ 3,000 mls/hr IV PRN PRN PRN Reason: Hypotension during Dialysis Insulin Aspart (Novolog Vial Sliding Scale -) 1 vial SQ ACHS RUEL PRN Reason: Protocol Last Admin: 06/09/17 06:26 Dose: 6 units Midodrine (Proamatine -) 10 mg PO TID-MID RUEL Multivit/Ca Carb/B Cmplx/FA/Prenat (Nephro-Pancho -) 1 tablet PO DAILY [facility]S [facility]CLUDE 234 BEDS AT THE [facility] Last Admin: 06/08/17 10:05 Dose: 1 tablet Pantoprazole Sodium (Protonix Iv) 40 mg IVPUSH BID COUNTS INCLUDE 234 BEDS AT THE [facility] Last Admin: 06/09/17 10:56 Dose: 40 mg ASSESSMENT AND PLAN: Acute Hypoxic Respiratory Failure Shock - ?Septic vs Cardiogenic GI Bleed +Troponins likely [place]and Ischemia LV Systolic Dysfunction Volume Overload Thrombocytopenia Coagulopathy Gangrene CAD s/p CABG ESRD on HD HTN DM - completed empiric antibiotics - albumin bolus - titrate up midodrine - monitoring off pressors, inotropes, maintain MAP >65 - HD per renal with ultrafiltration - taper off steroids - check CVP - monitor platelets, coags, fibrinogen level - transfuse as needed - spontaneous breathing trials as tolerated - will likely need tracheostomy given failure to wean - enteral feeds - DVT/GI prophylaxis - continue ICU monitoring critical care time spent in reviewing chart, evaluating patient and formulating plan 35 min
[2017-06-09] MEDS: VITAMIN B COMP W-C 1 EA TABLET PO SCH (16:02)
[2017-06-09] MEDS: CALCITRIOL 0.25 MCG CAPSULE (FP) PO SCH (16:02)
[2017-06-09] MEDS: AMINO ACIDS/PROTEIN HYDROLYS 30 ML LIQUID.PKT PO SCH (16:02)
[2017-06-09] MEDS: MIDODRINE HCL 5 MG TABLET PO SCH ×3 (16:05→18:42)
[2017-06-09] MEDS ORDERED: NOREPINEPHRINE BITARTRATE 4 MG/4 ML ML IV ONE (16:59)
[2017-06-09] MEDS: NOREPINEPHRINE BITARTRATE 4,000 MCG in DEXTROSE 5%-WATER - 496 ML IV SCH (17:08)
[2017-06-09] MEDS: ALBUMIN HUMAN 25% 12.5 GM/50 ML VIAL IVPB SCH ×4 (17:37→19:30)
[2017-06-09] MEDS: PROPOFOL 1,000,000 MCG/100 ML VIAL IVPB SCH (18:40)
--- NOTE | 2017-06-09 21:52 | PN ---
Progress Note (short form) - Note Progress Note: Patient seen and examined arousable Last Vital Signs Temp Pulse Resp BP Pulse Ox 98.2 F 90 14 120/58 100 06/09/17 14:40 06/09/17 20:10 06/09/17 20:10 06/09/17 20:10 06/09/17 11:32 Cor: RSR, No murmurs, No gallops Lungs: Clear to P&A Abd: Soft, Normal bowel sounds, anasarca Abnormal Lab Results 06/09/17 06/09/17 05:30 05:30 RBC 2.91 L Hgb 8.0 L Hct 24.2 L RDW 20.2 H Plt Count 62 L D MPV 12.2 H D BUN 63 H Creatinine 2.8 H Random Glucose 211 H Calcium 8.0 L Total Bilirubin 1.3 H D Alkaline Phosphatase 175 H Total Protein 4.9 L Albumin 1.7 L Home Medication List Medication Instructions Recorded Confirmed Type Aspirin [ASA -] 325 mg PO DAILY 05/21/17 05/21/17 History Budesonide [Pulmicort Flexhaler] 90 mcg IH BID 05/21/17 05/21/17 History Calcitriol [Rocaltrol -] 0.25 mcg PO ASDIR 05/21/17 05/21/17 History Docusate Sodium 100 mg PO TID 05/21/17 05/21/17 History Epoetin Keegan [Procrit] 10,000 unit SQ 05/21/17 History Ipratropium/Albuterol Sulfate 3 ml IH Q4H 05/21/17 05/21/17 History [Iprat-Albut 0.5-3(2.5) mg/3 ml] Midodrine HCl 5 mg PO ASDIR 05/21/17 05/21/17 History Pantoprazole Sodium 40 mg PO DAILY 05/21/17 05/21/17 History Sennosides [Senna Lax] 2 tab PO BID 05/21/17 05/21/17 History Vit B Comp No.3/Folic/C/Biotin 1 each PO DAILY 05/21/17 05/21/17 History [Leticia-Pancho Rx Tablet] Active Medications Generic Name Dose Route Start Last Admin Trade Name Freq PRN Reason Stop Dose Admin Albuterol/Ipratropium 1 amp 06/08/17 13:43 Duoneb - NEB Q6H PRN WHEEZING Amino Acids 30 ml 05/26/17 10:00 06/09/17 16:02 Prosource No Carb Liquid Pkt PO Not Given DAILY [facility] Calcitriol 0.25 mcg 05/23/17 10:45 06/09/17 16:02 Rocaltrol - PO Not Given DAILY [facility] Chlorhexidine Gluconate 1 applic 05/21/17 22:00 06/08/17 22:13 Hibiclens For Decolonization - TP 1 applic HS RUEL Administration Gabapentin 100 mg 05/26/17 22:00 06/09/17 16:04 Neurontin - NGT Not Given TID RUEL Hydrocortisone Sodium Succinate 25 mg 06/08/17 18:00 06/09/17 18:42 Solu-Cortef - IVPB 25 mg Q12H RUEL Administration Propofol 1,000,000 mcg in 100 mls @ 2.754 mls/hr 05/27/17 11:15 06/09/17 18: 40 Diprivan - IVPB 10 mcg/kg/min TITR RUEL 5.508 mls/hr Protocol Administration 5 MCG/KG/MIN Sodium Chloride 250 mls @ 3,000 mls/hr 06/09/17 11:30 Normal Saline - IV PRN PRN Hypotension during Dialysis Norepinephrine Bitartrate 4, 500 mls @ 37.5 mls/hr 06/09/17 17:00 06/09/17 17 :08 000 mcg/ Dextrose IV 5 mcg/min TITR RUEL 37.5 mls/hr Protocol Administration 5 MCG/MIN Insulin Aspart 1 vial 05/22/17 22:00 06/09/17 16:14 Novolog Vial Sliding Scale - SQ 2 units ACHS RUEL Administration Protocol Midodrine 10 mg 06/09/17 12:15 06/09/17 18:42 Proamatine - PO Not Given TID-MID [facility] Multivit/Ca Carb/B Cmplx/FA/Prenat 1 tablet 05/22/17 10:00 06/09/17 16:02 Nephro-Pancho - PO Not Given DAILY [facility] Pantoprazole Sodium 40 mg 05/25/17 10:00 06/09/17 10:56 Protonix Iv IVPUSH 40 mg BID RUEL Administration A/P 56 y/o Acute Hypoxic Respiratory Failure Shock - ?Septic vs Cardiogenic GI Bleed LV Systolic Dysfunction Coagulopathy Gangrene CAD s/p CABG ESRD on HD HTN DM coagulopathy/thrombocytopenia--improved transfuse monodonor platelets/cryo/FFP if actively beeding or platelets < 20-30, 000 or fibrinogen < 100 monitor CBC/Coags anemia of chronic disease--ESRD procrit per renal will recheck iron studies
[2017-06-09] MEDS: CHLORHEXIDINE GLUCONATE 4% CLEANSER FOR DECOLONIZATION TP SCH (22:28)
[2017-06-10] MEDS: GABAPENTIN 100 MG CAPSULE (FP) NGT SCH ×3 (05:32→22:55)
[2017-06-10] MEDS: HYDROCORTISONE SOD SUCCINATE 100 MG/2 ML VIAL IVPB SCH ×2 (05:33→05:35)
[2017-06-10] MEDS: PROPOFOL 1,000,000 MCG/100 ML VIAL IVPB SCH ×2 (05:36→12:09)
[2017-06-10] MEDS: INSULIN SLIDING SCALE (NOVOLOG) 1 VIAL SQ SCH ×3 (06:46→16:45)
[2017-06-10 06:56] LABS: HEMATOCRIT 23.7 % (32.4-45.2); HEMOGLOBIN 7.9 GM/dL (10.7-15.3); MCH 27.4 pg (25.7-33.7); MCHC 33.4 g/dl (32.0-36.0); MEAN PLT VOLUME 9.7 fl (7.5-11.1); PLATELET COUNT 43 K/MM3 (134-434); RBC 2.89 M/mm3 (3.60-5.2); RDW 20.6 % (11.6-15.6); WHITE BLOOD COUNT 4.9 K/mm3 (4.0-10.0)
[2017-06-10 07:34] LABS: CALCIUM 8.4 mg/dL (8.5-10.1); CHLORIDE 102 mmol/L (98-107); POTASSIUM 3.6 mmol/L (3.5-5.1); SODIUM 140 mmol/L (136-145)
[2017-06-10 07:42] LABS: ALBUMIN 2.3 g/dl (3.4-5.0); ALK PHOS 114 U/L (45-117); ANION GAP 11 (8-16); BILIRUBIN,TOTAL 2.6 mg/dL (0.2-1.0); BLOOD UREA NITROGEN 46 mg/dL (7-18); CO2 27 mmol/L (21-32); CREATININE 2.2 mg/dL (0.55-1.02); GLUCOSE,RANDOM 100 mg/dL (74-106); LDH 279 U/L (84-246); MAGNESIUM 1.7 mg/dL (1.8-2.4); SGOT/AST 30 U/L (15-37); SGPT/ALT 14 U/L (12-78); TOT PROT 5.1 g/dl (6.4-8.2)
--- NOTE | 2017-06-10 08:24 | PN ---
Progress Note (short form) - Note Progress Note: pt seen/examined in icu intubated/ sedated. on pressor scheduled for trach today feeding on hold Vital Signs Temp 97.7 F 06/10/17 02:00 Pulse 82 06/10/17 06:45 Resp 18 06/10/17 07:03 BP 128/57 06/10/17 06:45 Pulse Ox 100 06/09/17 21:00 Intake & Output 06/09/17 06/09/17 06/10/17 11:59 23:59 11:59 Intake Total 526.8 294 70 Output Total 0 Balance 526.8 294 70 Weight 184 lb 8.43 oz 183 lb 12.8 oz Intake: IV 106.8 174 70 DIPRIVAN - 1,000,000 mcg 106.8 174 70 In 100 ml @ 5 MCG/KG/MIN 2.754 mls/hr IVPB TITR RUEL Rx#:[id number] Tube Feeding 360 80 Tube Irrigant 60 40 Output: Urine 0 Void 0 Other: Voiding Method Diaper Diaper Weight Measurement Method [facility] Active Medications Albuterol/Ipratropium (Duoneb -) 1 amp NEB Q6H PRN PRN Reason: WHEEZING Amino Acids (Prosource No Carb Liquid Pkt) 30 ml PO DAILY [facility] Last Admin: 06/09/17 16:02 Dose: Not Given Calcitriol (Rocaltrol -) 0.25 mcg PO DAILY [facility] Last Admin: 06/09/17 16:02 Dose: Not Given Chlorhexidine Gluconate (Hibiclens For Decolonization -) 1 applic TP HS [facility] Last Admin: 06/09/17 22:28 Dose: 1 applic Gabapentin (Neurontin -) 100 mg NGT TID [facility] Last Admin: 06/10/17 05:32 Dose: Not Given Hydrocortisone Sodium Succinate (Solu-Cortef -) 25 mg IVPB Q12H [facility] Last Admin: 06/10/17 05:35 Dose: 25 mg Propofol (Diprivan -) 1,000,000 mcg in 100 mls @ 2.754 mls/hr IVPB TITR RUEL; 5 MCG/KG/MIN PRN Reason: Protocol Last Admin: 06/10/17 05:36 Dose: 15 mcg/kg/min, 8.263 mls/hr Sodium Chloride (Normal Saline -) 250 mls @ 3,000 mls/hr IV PRN PRN PRN Reason: Hypotension during Dialysis Norepinephrine Bitartrate 4, (000 mcg/ Dextrose) 500 mls @ 37.5 mls/hr IV TITR RUEL; 5 MCG/MIN PRN Reason: Protocol Last Admin: 06/09/17 17:08 Dose: 5 mcg/min, 37.5 mls/hr Insulin Aspart (Novolog Vial Sliding Scale -) 1 vial SQ ACHS RUEL PRN Reason: Protocol Last Admin: 06/10/17 06:46 Dose: Not Given Midodrine (Proamatine -) 10 mg PO TID-MID [facility] Last Admin: 06/09/17 18:42 Dose: Not Given Multivit/Ca Carb/B Cmplx/FA/Prenat (Nephro-Pancho -) 1 tablet PO DAILY [facility] Last Admin: 06/09/17 16:02 Dose: Not Given Pantoprazole Sodium (Protonix Iv) 40 mg IVPUSH BID [facility] Last Admin: 06/09/17 22:28 Dose: 40 mg CBC, BMP 06/10/17 06:25 06/10/17 06:25 cxr- progressive changes. Physical Constitutional: Yes: opens eyes . intubated. ngt + Cardiovascular: Yes: Regular Rate and Rhythm, Murmur Respiratory: Yes: Diminished, Gastrointestinal: Yes: Normal Bowel Sounds, Soft, Abdomen, Obese. No: Distention, Tenderness Extremities: Yes: Other (B/L feet gangrene) Edema: No. Assessment/Plan Hypovolemic shock GI bleeding ESRD on HD CAD , s/p CABG, MV and TV replacement AMS Gangrene of rt foot and left ring finger hypothermia-- on Solucortef thrombocytopenia -- overall condition same. -- continue present care -- failed weaning - trach planned today - feeding on hold - discussed with nursing staff. - overall condition remains poor. - will follow.. Problem List - Problems (1) Respiratory failure Code(s): J96.90 - RESPIRATORY FAILURE, UNSP, UNSP W HYPOXIA OR HYPERCAPNIA (2) Coagulopathy Code(s): D68.9 - COAGULATION DEFECT, UNSPECIFIED (3) GI bleed Code(s): K92.2 - GASTROINTESTINAL HEMORRHAGE, UNSPECIFIED (4) Gangrene Code(s): I96 - GANGRENE, NOT ELSEWHERE CLASSIFIED (5) Hx of CABG Code(s): Z95.1 - PRESENCE OF AORTOCORONARY BYPASS GRAFT
--- NOTE | 2017-06-10 09:49 | OPR ---
Patient Name: Lily Cade MR#: [id number] Procedure Date: 06/10/2017 Preoperative Diagnosis: Respiratory failure. Postoperative Diagnosis: same. Procedure: 1. Percutaneous tracheostomy with #8 Shiley; 2. Bronchoscopy (performed by Dr. Vargas). Indication: Respiratory failure; Surgeon(s): Bon Parish MD Cosurgeon: austin Fiscal Manager Surgeon: Pablo Vargas MD. Anesthesia: General endotracheal; Findings: Abundant secretions. Specimens Sent: 1. na; Complications: none Drains / Tubes / Catheters: na Hardware / Implants: #8 Shiley Blood / Fluid Losses: minimal Post-Operative Condition: Stable. Indications: This patient is a 56 year-old female with multiple medical problems and respiratory failure referred for tracheostomy by Dr. Vargas and the ICU team. An informed consent was obtained. All questions were addressed and his family agreed. Details of Procedure: The procedure was done at the bedside. We began with bronchoscopy to clear the airway for the procedure. This was done by Dr. Vargas. After this, the neck was prepared and draped in standard fashion. We then made a transverse incision opening the prior tracheostomy, below the cricoid cartilage. We withdrew the endotracheal airway until we were close to the vocal cords and saw the old stoma site. With the incision in place, we inserted the needle from the percutaneous bronchoscopy kit under direct bronchoscopic vision identifying approximately the 2nd to 3rd ring. We then passed a wire under vision. We then dilated up and inserted the tracheostomy (#8 Shiley). We put the cuff up and connected the ventilator. We placed the bronchoscope through the tracheostomy and then above. There was minimal blood from the subcutaneous tissue that went into the airway. This was removed. There was no active bleeding and the placement was good.
[2017-06-10] MEDS ORDERED: MAGNESIUM 1GM/D5W 100ML - 100 ML IVPB IVPB ONE (10:00)
[2017-06-10] MEDS: MIDODRINE HCL 5 MG TABLET PO SCH ×4 (10:17→17:22)
[2017-06-10] MEDS: VITAMIN B COMP W-C 1 EA TABLET PO SCH ×2 (10:17→12:54)
[2017-06-10] MEDS: AMINO ACIDS/PROTEIN HYDROLYS 30 ML LIQUID.PKT PO SCH (10:18)
[2017-06-10] MEDS: CALCITRIOL 0.25 MCG CAPSULE (FP) PO SCH ×2 (10:18→12:54)
[2017-06-10 10:55] LABS: ANISOCYTOSIS 2+; CORRECTED WBC 4.05 K/mm3; MACROCYTOSIS 1+; PLATELET ESTIMATE DECREASED; TARGET CELLS 1+; TOXIC GRANULATION 1+
--- NOTE | 2017-06-10 13:20 | PN ---
Teaching Attending Note Name of Resident: Den Dsouza ATTENDING PHYSICIAN STATEMENT I saw and evaluated the patient. I reviewed the resident's note and discussed the case with the resident. I agree with the resident's findings and plan as documented. SUBJECTIVE: Pt seen and examined in the ICU. Remains intubated, sedated. Low dose levophed gtt restarted for hypotension. tolerated HD with UF 3L. CV 15-16. OBJECTIVE: Last Vital Signs Temp Pulse Resp BP Pulse Ox 98.8 F 86 14 90/49 100 06/10/17 12:00 06/10/17 12:02 06/10/17 13:04 06/10/17 12:02 06/10/17 11:51 Intake & Output 06/07/17 06/08/17 06/09/17 06/10/17 23:59 23:59 23:59 23:59 Intake Total 895 805 820.8 70 Output Total 0 0 0 Balance 895 805 820.8 70 Weight 81.221 kg 81.284 kg 83.7 kg 83.37 kg Gen: intubated, sedated Heart: RRR Lung: bilateral rhonchi Abd: soft, nontender Ext: + anasarca CBC, BMP 06/10/17 06:25 06/10/17 06:25 Active Medications Albuterol/Ipratropium (Duoneb -) 1 amp NEB Q6H PRN PRN Reason: WHEEZING Amino Acids (Prosource No Carb Liquid Pkt) 30 ml PO DAILY [facility] Last Admin: 06/10/17 10:18 Dose: Not Given Calcitriol (Rocaltrol -) 0.25 mcg PO DAILY [facility] Last Admin: 06/10/17 12:54 Dose: 0.25 mcg Chlorhexidine Gluconate (Hibiclens For Decolonization -) 1 applic TP HS [facility] Last Admin: 06/09/17 22:28 Dose: 1 applic Gabapentin (Neurontin -) 100 mg NGT TID [facility] Last Admin: 06/10/17 05:32 Dose: Not Given Propofol (Diprivan -) 1,000,000 mcg in 100 mls @ 2.754 mls/hr IVPB TITR [facility]; 5 MCG/KG/MIN PRN Reason: Protocol Last Admin: 06/10/17 12:09 Dose: 21.6 mcg/kg/min, 11.9 mls/hr Sodium Chloride (Normal Saline -) 250 mls @ 3,000 mls/hr IV PRN PRN PRN Reason: Hypotension during Dialysis Norepinephrine Bitartrate 4, (000 mcg/ Dextrose) 500 mls @ 37.5 mls/hr IV TITR RU[facility]; 5 MCG/MIN PRN Reason: Protocol Last Admin: 06/09/17 17:08 Dose: 5 mcg/min, 37.5 mls/hr Insulin Aspart (Novolog Vial Sliding Scale -) 1 vial SQ ACHS [facility] PRN Reason: Protocol Last Admin: 06/10/17 12:08 Dose: Not Given Midodrine (Proamatine -) 10 mg PO TID-MID [facility] Last Admin: 06/10/17 11:54 Dose: 10 mg Multivit/Ca Carb/B Cmplx/FA/Prenat (Nephro-Pancho -) 1 tablet PO DAILY [facility] Last Admin: 06/10/17 12:54 Dose: 1 tablet Pantoprazole Sodium (Protonix Iv) 40 mg IVPUSH BID [facility] Last Admin: 06/09/17 22:28 Dose: 40 mg ASSESSMENT AND PLAN: Acute Hypoxic Respiratory Failure Shock - Cardiogenic > Septic GI Bleed +Troponins likely Demand Ischemia LV Systolic Dysfunction Volume Overload Thrombocytopenia Coagulopathy Gangrene CAD s/p CABG ESRD on HD HTN DM - completed empiric antibiotics - titrate up midodrine - titrate off levophed gtt, maintain MAP >65 - HD per renal with ultrafiltration - taper off steroids - monitor CVP - monitor platelets, coags, fibrinogen level - transfuse as needed - spontaneous breathing trials as tolerated - for tracheostomy today given failure to wean - enteral feeds - DVT/GI prophylaxis - continue ICU monitoring critical care time spent in reviewing chart, evaluating patient and formulating plan 35 min
--- NOTE | 2017-06-10 14:17 | PN ---
Physical Exam: SUBJECTIVE: Patient seen and examined Overnight, pt started on levo for MAPs < 65. No other acute events overnight. This am, pt sedated and still unresponsive yo commands. OBJECTIVE: Vital Signs Period Temp Pulse Resp BP Sys/Ceron Pulse Ox Last 24 Hr 97.7 F-98.8 F 72-96 14-18 80-145/40-63 100-100 GENERAL: middle aged female, sedated on vent, NG tube in place, minimally responsive HEENT: vent and NG tube in place LUNGS: rhonchi HEART: tachycardia, no murmurs ABDOMEN: soft, non-distended EXTREMITIES: 2+ edema in all extremities, gangrenous LEs NEUROLOGICAL: sedated on vent Laboratory Results - last 24 hr 06/08/17 06/09/17 06/10/17 22:25 05:40 06:25 WBC Corrected WBC (auto) RBC Hgb Hct MCV MCH MCHC RDW Plt Count MPV Neutrophils % Neutrophils % (Manual) Band Neutrophils % Lymphocytes % Lymphocytes % (Manual) Monocytes % (Manual) Eosinophils % (Manual) Basophils % (Manual) Myelocytes % (Man) Promyelocytes % (Man) Blast Cells % (Manual) Nucleated RBC % Metamyelocytes Toxic Granulation Platelet Estimate Polychromasia Poikilocytosis Anisocytosis Microcytosis Macrocytosis Target Cells Sodium 140 Potassium 3.6 Chloride 102 Carbon Dioxide 27 Anion Gap 11 BUN 46 H Creatinine 2.2 H Creat Clearance w eGFR 22.93 POC Glucometer [id number] Random Glucose 100 Calcium 8.4 L Phosphorus 3.0 Magnesium 1.7 L Ferritin 1382.316 H Total Bilirubin 2.6 H D AST 30 ALT 14 Alkaline Phosphatase 114 LD Total 279 H Total Protein 5.1 L Albumin 2.3 L Vitamin B12 1772 H 06/10/17 06:25 WBC 4.9 D Corrected WBC (auto) 4.05 RBC 2.89 L Hgb 7.9 L Hct 23.7 L MCV 82.0 MCH 27.4 MCHC 33.4 RDW 20.6 H Plt Count 43 L D MPV 9.7 D Neutrophils % No Result Required. Neutrophils % (Manual) 70.7 Band Neutrophils % 20.2 Lymphocytes % No Result Required. Lymphocytes % (Manual) 6.1 L D Monocytes % (Manual) 1 L D Eosinophils % (Manual) 1.0 D Basophils % (Manual) 0.0 Myelocytes % (Man) 0 D Promyelocytes % (Man) 0 Blast Cells % (Manual) 0 Nucleated RBC % 21 H* D Metamyelocytes 0 Toxic Granulation 1+ Platelet Estimate Decreased Polychromasia 1+ Poikilocytosis 1+ Anisocytosis 2+ Microcytosis 1+ Macrocytosis 1+ Target Cells 1+ Sodium Potassium Chloride Carbon Dioxide Anion Gap BUN Creatinine Creat Clearance w eGFR POC Glucometer Random Glucose Calcium Phosphorus Magnesium Ferritin Total Bilirubin AST ALT Alkaline Phosphatase LD Total Total Protein Albumin Vitamin B12 Active Medications Generic Name Dose Route Start Last Admin Trade Name Freq PRN Reason Stop Dose Admin Albuterol/Ipratropium 1 amp 06/08/17 13:43 Duoneb - NEB Q6H PRN WHEEZING Amino Acids 30 ml 05/26/17 10:00 06/10/17 10:18 Prosource No Carb Liquid Pkt PO Not Given DAILY [facility] Calcitriol 0.25 mcg 05/23/17 10:45 06/10/17 12:54 Rocaltrol - PO 0.25 mcg DAILY [facility] Administration Chlorhexidine Gluconate 1 applic 05/21/17 22:00 06/09/17 22:28 Hibiclens For Decolonization - TP 1 applic HS [facility] Administration Gabapentin 100 mg 05/26/17 22:00 06/10/17 05:32 Neurontin - NGT Not Given TID [facility] Propofol 1,000,000 mcg in 100 mls @ 2.754 mls/hr 05/27/17 11:15 06/10/17 12: 09 Diprivan - IVPB 21.6 mcg/kg/min TITR [facility] 11.9 mls/hr Protocol Administration 5 MCG/KG/MIN Sodium Chloride 250 mls @ 3,000 mls/hr 06/09/17 11:30 Normal Saline - IV PRN PRN Hypotension during Dialysis Norepinephrine Bitartrate 4, 500 mls @ 37.5 mls/hr 06/09/17 17:00 06/09/17 17 :08 000 mcg/ Dextrose IV 5 mcg/min TITR [facility] 37.5 mls/hr Protocol Administration 5 MCG/MIN Insulin Aspart 1 vial 05/22/17 22:00 06/10/17 12:08 Novolog Vial Sliding Scale - SQ Not Given ACHS [facility] Protocol Midodrine 10 mg 06/09/17 12:15 06/10/17 11:54 Proamatine - PO 10 mg TID-MID [facility] Administration Multivit/Ca Carb/B Cmplx/FA/Prenat 1 tablet 05/22/17 10:00 06/10/17 12:54 Nephro-Pancho - PO 1 tablet DAILY [facility] Administration Pantoprazole Sodium 40 mg 05/25/17 10:00 06/09/17 22:28 Protonix Iv IVPUSH 40 mg BID [facility] Administration ASSESSMENT/PLAN: 56F with PMH of DM, HTN, RI (s/p CABG 03/2017), ESRD (on HD MWF), and hemorrhoids , admitted to the ICU with shock, coagulopathy, currently off of abx, failing weaning trials off of vent. CV # shock - started on levo overnight, currently at rate of 2. CVPs of 15-16, more consistent with cardiogenic etiology - ID (Dr. Shen) recs appreciated, off of abx for several days - continue midodrine 10mg TID - hydrocortisone discontinued # CAD (s/p CABG) and systolic CHF - Cardiology (Dr. Stapleton) recs appreciated: no AC 2/2 severe anemia, thrombocytopenia, and recent bleed requiring transfusion # dry gangrene to susan feet - continue to monitor - amputation once stable Resp # acute hypoxic respiratory failure - intubated on vent. change to prednisone after trach. - persistent failure at spontaneous breathing trials. Per Dr. Parish, trach scheduled for this afternoon - continue duonebs and Asmanex Nephro # ESRD with HD - anuric - Nephrology (Dr. Plummer) recs appreciated. HD done yesterday, 2kg of volume removed - avoid nephrotoxic agents GI # GI bleed - likely 2/2 hemorrhoids - hgb at 7.8, down from 8 yesterday - transfuse as needed Heme #thrombocytopenia -platelets of 43 today -per heme, give platelets if < 20-30. give FFP if fibrinogen < 100 OR active bleeding Endo # DM - BGMs - SSI - continue Neurontin FEN/ppx - Fluids: via NG tube - Electrolytes: Mg repleted - Nutrition: Nepro to goal of 30 ml/hr x 24 hrs, Prosource 30ml daily - DVT chemoprophylaxis: held 2/2 thrombocytopenia and mechanical ppx held 2/ 2 PAD and gangrene - GI ppx with Protonix Dispo - Full Code Case discussed with attending, Dr. Vargas. -Den Dsouza MD PGY1 ICU Team Visit type - Emergency Visit Emergency Visit: Yes ED Registration Date: 05/21/17 Care time: The patient presented to the Emergency Department on the above date and was hospitalized for further evaluation of their emergent condition. - New Patient This patient is new to me today: No - Critical Care Critical Care patient: Yes Total Critical Care Time (in minutes): 35 Critical Care Statement: The care of this patient involved high complexity decision making to prevent further life threatening deterioration of the patient 's condition and/or to evaluate & treat vital organ system(s) failure or risk of failure.
[2017-06-10] MEDS: PANTOPRAZOLE SODIUM 40 MG VIAL IVPUSH SCH ×2 (14:50→22:55)
[2017-06-10] MEDS ORDERED: NOREPINEPHRINE BITARTRATE 4 MG/4 ML ML IV ONE (14:52)
--- NOTE | 2017-06-10 14:57 | PN ---
Progress Note, Physician History of Present Illness: Pt seen and examined at bedside. She remains in the ICU. Pt remains lethargic. - Current Medication List Current Medications: Active Medications Albuterol/Ipratropium (Duoneb -) 1 amp NEB Q6H PRN PRN Reason: WHEEZING Amino Acids (Prosource No Carb Liquid Pkt) 30 ml PO DAILY [facility] Last Admin: 06/10/17 10:18 Dose: Not Given Calcitriol (Rocaltrol -) 0.25 mcg PO DAILY [facility] Last Admin: 06/10/17 12:54 Dose: 0.25 mcg Chlorhexidine Gluconate (Hibiclens For Decolonization -) 1 applic TP HS [facility] Last Admin: 06/09/17 22:28 Dose: 1 applic Gabapentin (Neurontin -) 100 mg NGT TID [facility] Last Admin: 06/10/17 14:40 Dose: Not Given Propofol (Diprivan -) 1,000,000 mcg in 100 mls @ 2.754 mls/hr IVPB TITR [facility]; 5 MCG/KG/MIN PRN Reason: Protocol Last Admin: 06/10/17 12:09 Dose: 21.6 mcg/kg/min, 11.9 mls/hr Sodium Chloride (Normal Saline -) 250 mls @ 3,000 mls/hr IV PRN PRN PRN Reason: Hypotension during Dialysis Norepinephrine Bitartrate 4, (000 mcg/ Dextrose) 500 mls @ 37.5 mls/hr IV TITR [facility]; 5 MCG/MIN PRN Reason: Protocol Last Admin: 06/09/17 17:08 Dose: 5 mcg/min, 37.5 mls/hr Insulin Aspart (Novolog Vial Sliding Scale -) 1 vial SQ ACHS [facility] PRN Reason: Protocol Last Admin: 06/10/17 12:08 Dose: Not Given Midodrine (Proamatine -) 10 mg PO TID-MID [facility] Last Admin: 06/10/17 14:51 Dose: Not Given Multivit/Ca Carb/B Cmplx/FA/Prenat (Nephro-Pancho -) 1 tablet PO DAILY [facility] Last Admin: 06/10/17 12:54 Dose: 1 tablet Pantoprazole Sodium (Protonix Iv) 40 mg IVPUSH BID [facility] Last Admin: 06/10/17 14:50 Dose: 40 mg - Objective Vital Signs: Vital Signs Temperature 98.4 F 04/10/18 13:30 Pulse Rate 92 H 06/10/17 14:36 Respiratory Rate 14 06/10/17 14:37 Blood Pressure 98/48 06/10/17 14:36 O2 Sat by Pulse Oximetry (%) 100 06/10/17 14:37 Constitutional: Yes: Calm Eyes: Yes: Conjunctiva Clear HENT: Yes: Atraumatic Cardiovascular: Yes: S1, S2 Respiratory: Yes: Mechanically Ventilated Gastrointestinal: Yes: Soft, Abdomen, Obese Genitourinary: Yes: Incontinence Musculoskeletal: Yes: Muscle Weakness Edema: Yes Edema: LUE: 1+, RUE: 1+ Integumentary: Yes: Other (gangrene of foot) Neurological: Yes: Lethargy Labs: CBC, BMP 06/10/17 06:25 06/10/17 06:25 INR, PTT INR 1.11 (0.82-1.09) 06/06/17 05:30 Fibrinogen 411.0 mg/dL (238-498) D 06/06/17 05:30 - ....Imaging Chest X-ray: Report Reviewed Problem List - Problems (1) ESRD (end stage renal disease) Code(s): N18.6 - END STAGE RENAL DISEASE (2) CAD (coronary artery disease) Code(s): I25.10 - ATHSCL HEART DISEASE OF [place] CORONARY ARTERY W/O ANG PCTRS Qualifiers: Coronary Disease-Associated Artery/Lesion type: [place] artery Associated angina: without angina (3) Hx of CABG Code(s): Z95.1 - PRESENCE OF AORTOCORONARY BYPASS GRAFT (4) Anemia Code(s): D64.9 - ANEMIA, UNSPECIFIED (5) GI bleed Code(s): K92.2 - GASTROINTESTINAL HEMORRHAGE, UNSPECIFIED Assessment/Plan Current Medications Generic Name Dose Route Start Last Admin Trade Name Freq PRN Reason Stop Dose Admin Albuterol/Ipratropium 1 amp 06/08/17 13:43 Duoneb - NEB Q6H PRN WHEEZING Amino Acids 30 ml 05/26/17 10:00 06/10/17 10:18 Prosource No Carb Liquid Pkt PO Not Given DAILY [facility] Calcitriol 0.25 mcg 05/23/17 10:45 06/10/17 12:54 Rocaltrol - PO 0.25 mcg DAILY [facility] Administration Chlorhexidine Gluconate 1 applic 05/21/17 22:00 06/09/17 22:28 Hibiclens For Decolonization - TP 1 applic HS [facility] Administration Gabapentin 100 mg 05/26/17 22:00 06/10/17 14:40 Neurontin - NGT Not Given TID [facility] Propofol 1,000,000 mcg in 100 mls @ 2.754 mls/hr 05/27/17 11:15 06/10/17 12: 09 Diprivan - IVPB 21.6 mcg/kg/min TITR [facility] 11.9 mls/hr Protocol Administration 5 MCG/KG/MIN Sodium Chloride 250 mls @ 3,000 mls/hr 06/09/17 11:30 Normal Saline - IV PRN PRN Hypotension during Dialysis Norepinephrine Bitartrate 4, 500 mls @ 37.5 mls/hr 06/09/17 17:00 06/09/17 17 :08 000 mcg/ Dextrose IV 5 mcg/min TITR [facility] 37.5 mls/hr Protocol Administration 5 MCG/MIN Insulin Aspart 1 vial 05/22/17 22:00 06/10/17 12:08 Novolog Vial Sliding Scale - SQ Not Given ACHS [facility] Protocol Midodrine 10 mg 06/09/17 12:15 06/10/17 14:51 Proamatine - PO Not Given TID-MID [facility] Multivit/Ca Carb/B Cmplx/FA/Prenat 1 tablet 05/22/17 10:00 06/10/17 12:54 Nephro-Pancho - PO 1 tablet DAILY [facility] Administration Pantoprazole Sodium 40 mg 05/25/17 10:00 06/10/17 14:50 Protonix Iv IVPUSH 40 mg BID [facility] Administration Impression 1. ESRD 2. GI bleed likely from hemorrhoids 3. hemorrhoids 4. anemia 5. CAD 6. s/p CABG 7. DM 8. hypotension 9. lactic acidosis 10. volume overload 11. resp failure requiring intubation Plan - pt getting trache today - will arrange for HD tomorrow - vent support - vascular follow up for lower ext gangrene - discussed with ICU team - monitor pulse ox - will follow Dr Plummer
[2017-06-10] MEDS ORDERED: VECURONIUM BROMIDE 10 MG VIAL ONE (15:24)
[2017-06-10] MEDS ORDERED: MIDAZOLAM HCL 2 MG/2 ML SINGLE DOSE VIAL IVPUSH ONE (15:29)
[2017-06-10] MEDS ORDERED: PROPOFOL 200 MG/20 ML VIAL IVPUSH ONE (15:30)
[2017-06-10] MEDS ORDERED: VECURONIUM BROMIDE 50 MG VIAL IVPUSH ONE (15:30)
[2017-06-10] MEDS ORDERED: WATER FOR INJ,STERILE 20 ML ONE (15:31)
[2017-06-10] MEDS ORDERED: MIDAZOLAM HCL 5 MG/1 ML Single Dose Vial ONE (15:31)
[2017-06-10] MEDS ORDERED: LIDOCAINE HCL/EPINEPHRINE/PF 10 ML VIAL IM ONE (15:41)
[2017-06-10] MEDS ORDERED: ALBUMIN HUMAN 25% 12.5 GM/50 ML VIAL IVPB ONE (16:00)
--- NOTE | 2017-06-10 16:20 | PROC ---
Procedure Note Procedure: BRONCHOSCOPY NOTE Informed consent was obtained. Storz video bronchoscope passed via the endotracheal tube and the airways were examined down to the subsegmental level. No endobronchial lesions noted. Prior stoma site identified, trachea visualized as surgery placed a percutaneous tracheostomy. Bronchoscope then passed via the new tracheostomy, no active bleeding noted and placement confirmed. Bronchoscope then withdrawn and procedure terminated. No immediate complications. Stat CXR ordered. Pablo Vargas MD
[2017-06-10] MEDS: NOREPINEPHRINE BITARTRATE 4,000 MCG in DEXTROSE 5%-WATER - 496 ML IV SCH (16:22)
[2017-06-10 19:50] LABS: ARTERIAL BLOOD GAS BASE EXCESS 3.7 meq/l (-2-2); ARTERIAL BLOOD GAS PCO2 29.4 mmHg (35-45); ARTERIAL BLOOD GAS pH 7.55 (7.35-7.45)
[2017-06-10 20:00] LABS: ALLENS TEST POSITIVE
[2017-06-10] MEDS: CHLORHEXIDINE GLUCONATE 4% CLEANSER FOR DECOLONIZATION TP SCH (22:55)
[2017-06-10 23:42] LABS: ARTERIAL BLD GAS O2 SATURATION 98.8 % (90-98.9); ARTERIAL BLOOD GAS BASE EXCESS 2.5 meq/l (-2-2); ARTERIAL BLOOD GAS PCO2 34.8 mmHg (35-45); ARTERIAL BLOOD GAS pH 7.48 (7.35-7.45)
[2017-06-11] MEDS: GABAPENTIN 100 MG CAPSULE (FP) NGT SCH ×3 (06:28→21:27)
[2017-06-11] MEDS: INSULIN SLIDING SCALE (NOVOLOG) 1 VIAL SQ SCH ×5 (06:29→21:31)
[2017-06-11] MEDS: NOREPINEPHRINE BITARTRATE 4,000 MCG in DEXTROSE 5%-WATER - 496 ML IV SCH ×2 (06:30→17:30)
[2017-06-11 06:35] LABS: HEMATOCRIT 23.3 % (32.4-45.2); HEMOGLOBIN 7.8 GM/dL (10.7-15.3); MCH 27.1 pg (25.7-33.7); MCHC 33.4 g/dl (32.0-36.0); RBC 2.88 M/mm3 (3.60-5.2); RDW 20.8 % (11.6-15.6); WHITE BLOOD COUNT 4.1 K/mm3 (4.0-10.0)
[2017-06-11 06:57] LABS: ADD RBC MORPHOLOGY YES
[2017-06-11 06:59] LABS: ALBUMIN 1.9 g/dl (3.4-5.0); CHLORIDE 99 mmol/L (98-107); POTASSIUM 3.9 mmol/L (3.5-5.1); SODIUM 140 mmol/L (136-145)
[2017-06-11 07:04] LABS: ALK PHOS 102 U/L (45-117); ANION GAP 14 (8-16); BILIRUBIN,TOTAL 3.2 mg/dL (0.2-1.0); BLOOD UREA NITROGEN 51 mg/dL (7-18); CALCIUM 8.2 mg/dL (8.5-10.1); CO2 27 mmol/L (21-32); CREATININE 2.7 mg/dL (0.55-1.02); GLUCOSE,RANDOM 127 mg/dL (74-106); MAGNESIUM 2.1 mg/dL (1.8-2.4); PHOSPHOROUS 3.3 mg/dL (2.5-4.9); SGOT/AST 33 U/L (15-37); SGPT/ALT 11 U/L (12-78); TOT PROT 4.8 g/dl (6.4-8.2)
[2017-06-11] MEDS: PROPOFOL 1,000,000 MCG/100 ML VIAL IVPB SCH ×2 (07:56→14:41)
[2017-06-11 08:47] LABS: MEAN PLT VOLUME 10.1 fl (7.5-11.1)
[2017-06-11 08:52] LABS: PLATELET COUNT 29 K/MM3 (134-434)
[2017-06-11] MEDS ORDERED: EPOETIN ALFA 2,000 UNIT/1 ML VIAL IVPUSH ONE (09:00)
[2017-06-11] MEDS ORDERED: SODIUM CHLORIDE 250 ML IV PRN (09:00)
[2017-06-11 09:53] LABS: ANISOCYTOSIS 1+; MACROCYTOSIS 1+; OVALOCYTE 1+; TARGET CELLS 1+; TOXIC GRANULATION 1+
[2017-06-11] MEDS: VITAMIN B COMP W-C 1 EA TABLET PO SCH (09:53)
[2017-06-11] MEDS: MIDODRINE HCL 5 MG TABLET PO SCH ×3 (09:53→18:22)
[2017-06-11] MEDS: PANTOPRAZOLE SODIUM 40 MG VIAL IVPUSH SCH ×2 (09:53→21:27)
[2017-06-11] MEDS: AMINO ACIDS/PROTEIN HYDROLYS 30 ML LIQUID.PKT PO SCH (09:53)
[2017-06-11 10:12] LABS: SERUM IRON SATURATION 15 % (15-55); TOTAL IRON BINDING CAPACITY 88 ug/dL (250-450); UIBC 75 ug/dL (131-425)
--- NOTE | 2017-06-11 11:07 | PN ---
Progress Note, Physician Chief Complaint: no distress unable to wean s/ p trach on levophed - Current Medication List Current Medications: Active Medications Albuterol/Ipratropium (Duoneb -) 1 amp NEB Q6H PRN PRN Reason: WHEEZING Amino Acids (Prosource No Carb Liquid Pkt) 30 ml PO DAILY [facility] Last Admin: 06/11/17 09:53 Dose: 30 ml Calcitriol (Rocaltrol Liquid -) 0.25 mcg NGT DAILY [facility] Chlorhexidine Gluconate (Hibiclens For Decolonization -) 1 applic TP HS [facility] Last Admin: 06/10/17 22:55 Dose: 1 applic Gabapentin (Neurontin -) 100 mg NGT TID [facility] Last Admin: 06/11/17 06:28 Dose: 100 mg Propofol (Diprivan -) 1,000,000 mcg in 100 mls @ 2.754 mls/hr IVPB TITR [facility]; 5 MCG/KG/MIN PRN Reason: Protocol Last Admin: 06/11/17 07:56 Dose: 21.6 mcg/kg/min, 11.9 mls/hr Sodium Chloride (Normal Saline -) 250 mls @ 3,000 mls/hr IV PRN PRN PRN Reason: Hypotension during Dialysis Norepinephrine Bitartrate 4, (000 mcg/ Dextrose) 500 mls @ 37.5 mls/hr IV TITR RU[facility]; 5 MCG/MIN PRN Reason: Protocol Last Admin: 06/11/17 06:30 Dose: 5 mcg/min, 37.5 mls/hr Insulin Aspart (Novolog Vial Sliding Scale -) 1 vial SQ ACHS [facility] PRN Reason: Protocol Last Admin: 06/11/17 08:17 Dose: Not Given Midodrine (Proamatine -) 10 mg PO TID-MID [facility] Last Admin: 06/11/17 09:53 Dose: 10 mg Multivit/Ca Carb/B Cmplx/FA/Prenat (Nephro-Pancho -) 1 tablet PO DAILY [facility] Last Admin: 06/11/17 09:53 Dose: 1 tablet Pantoprazole Sodium (Protonix Iv) 40 mg IVPUSH BID [facility] Last Admin: 06/11/17 09:53 Dose: 40 mg - Objective Vital Signs: Vital Signs Temperature 98.4 F 06/11/17 08:00 Pulse Rate 100 H 06/11/17 10:47 Respiratory Rate 14 04/11/18 10:47 Blood Pressure 113/54 06/11/17 10:47 O2 Sat by Pulse Oximetry (%) 100 06/11/17 09:19 Constitutional: Yes: No Distress Cardiovascular: Yes: Regular Rate and Rhythm Respiratory: Yes: Diminished, Mechanically Ventilated Gastrointestinal: Yes: Normal Bowel Sounds, Soft. No: Tenderness Extremities: Yes: Other (gangrene b/l feet) Edema: No Labs: CBC, BMP 06/11/17 06:10 06/11/17 06:10 INR, PTT INR 1.11 (0.82-1.09) 06/06/17 05:30 Fibrinogen 411.0 mg/dL (238-498) D 06/06/17 05:30 Problem List - Problems (1) Anemia Code(s): D64.9 - ANEMIA, UNSPECIFIED (2) CAD (coronary artery disease) Code(s): I25.10 - ATHSCL HEART DISEASE OF [place] CORONARY ARTERY W/O ANG PCTRS Qualifiers: Coronary Disease-Associated Artery/Lesion type: [place] artery Associated angina: without angina (3) ESRD (end stage renal disease) Code(s): N18.6 - END STAGE RENAL DISEASE (4) GI bleed Code(s): K92.2 - GASTROINTESTINAL HEMORRHAGE, UNSPECIFIED (5) Gangrene Code(s): I96 - GANGRENE, NOT ELSEWHERE CLASSIFIED (6) H/O heart valve replacement with bioprosthetic valve Code(s): Z95.3 - PRESENCE OF XENOGENIC HEART VALVE (7) Hx of CABG Code(s): Z95.1 - PRESENCE OF AORTOCORONARY BYPASS GRAFT (8) Lower GI bleed Code(s): K92.2 - GASTROINTESTINAL HEMORRHAGE, UNSPECIFIED (9) Sepsis Code(s): A41.9 - SEPSIS, UNSPECIFIED ORGANISM Assessment/Plan A/P Hypovolemic shock GI bleeding ESRD on HD CAD , s/p CABG, MV and TV replacement AMS Gangrene of rt foot and left ring finger hypothermia-- on Solucortef thrombocytopenia -- on pressors --s/p trach --labs noted -- prognosis poor -- cultures negative -- needs peg tube placement, GI eval
[2017-06-11 11:09] LABS: INR 1.32 (0.82-1.09); PROTHROMBIN TIME (PATIENT) 14.9 SEC (9.98-11.88)
[2017-06-11 11:11] LABS: ACTIVATED PTT 37.8 SECONDS (26.9-34.4)
[2017-06-11] MEDS: CALCITRIOL 1 MCG/ML BOT NGT SCH (11:30)
--- NOTE | 2017-06-11 12:50 | PN ---
Progress Note, Physician History of Present Illness: Pt seen and examined at bedside. She remains in the ICU. She is s/p trache. - Current Medication List Current Medications: Active Medications Albuterol/Ipratropium (Duoneb -) 1 amp NEB Q6H PRN PRN Reason: WHEEZING Amino Acids (Prosource No Carb Liquid Pkt) 30 ml PO DAILY [facility] Last Admin: 06/11/17 09:53 Dose: 30 ml Calcitriol (Rocaltrol Liquid -) 0.25 mcg NGT DAILY [facility] Chlorhexidine Gluconate (Hibiclens For Decolonization -) 1 applic TP HS [facility] Last Admin: 06/10/17 22:55 Dose: 1 applic Gabapentin (Neurontin -) 100 mg NGT TID [facility] Last Admin: 06/11/17 06:28 Dose: 100 mg Sodium Chloride (Normal Saline -) 250 mls @ 3,000 mls/hr IV PRN PRN PRN Reason: Hypotension during Dialysis Norepinephrine Bitartrate 4, (000 mcg/ Dextrose) 500 mls @ 37.5 mls/hr IV TITR [facility]; 5 MCG/MIN PRN Reason: Protocol Last Admin: 06/11/17 06:30 Dose: 5 mcg/min, 37.5 mls/hr Insulin Aspart (Novolog Vial Sliding Scale -) 1 vial SQ ACHS [facility] PRN Reason: Protocol Last Admin: 06/11/17 08:17 Dose: Not Given Midodrine (Proamatine -) 10 mg PO TID-MID [facility] Last Admin: 06/11/17 09:53 Dose: 10 mg Multivit/Ca Carb/B Cmplx/FA/Prenat (Nephro-Pancho -) 1 tablet PO DAILY [facility] Last Admin: 06/11/17 09:53 Dose: 1 tablet Pantoprazole Sodium (Protonix Iv) 40 mg IVPUSH BID [facility] Last Admin: 06/11/17 09:53 Dose: 40 mg - Objective Vital Signs: Vital Signs Temperature 97.9 F 06/11/17 12:24 Pulse Rate 96 H 06/11/17 12:24 Respiratory Rate 14 06/11/17 12:24 Blood Pressure 105/54 06/11/17 12:24 O2 Sat by Pulse Oximetry (%) 100 06/11/17 12:35 Constitutional: Yes: Calm Eyes: Yes: Conjunctiva Clear Neck: Yes: Other (trache) Cardiovascular: Yes: S1, S2 Respiratory: Yes: Mechanically Ventilated Gastrointestinal: Yes: Soft Genitourinary: Yes: Incontinence Edema: Yes Edema: LUE: 1+, RUE: 1+, LLE: 1+, RLE: 1+ Integumentary: Yes: Other (gangrene of foot) Neurological: Yes: Lethargy Labs: CBC, BMP 06/11/17 06:10 06/11/17 06:10 INR, PTT INR 1.32 (0.82-1.09) H 06/11/17 09:40 Fibrinogen 411.0 mg/dL (238-498) D 06/06/17 05:30 - ....Imaging Chest X-ray: Report Reviewed Problem List - Problems (1) ESRD (end stage renal disease) Code(s): N18.6 - END STAGE RENAL DISEASE (2) CAD (coronary artery disease) Code(s): I25.10 - ATHSCL HEART DISEASE OF [place] CORONARY ARTERY W/O ANG PCTRS Qualifiers: Coronary Disease-Associated Artery/Lesion type: [place] artery Associated angina: without angina (3) Hx of CABG Code(s): Z95.1 - PRESENCE OF AORTOCORONARY BYPASS GRAFT (4) Anemia Code(s): D64.9 - ANEMIA, UNSPECIFIED (5) GI bleed Code(s): K92.2 - GASTROINTESTINAL HEMORRHAGE, UNSPECIFIED Assessment/Plan Current Medications Generic Name Dose Route Start Last Admin Trade Name Freq PRN Reason Stop Dose Admin Albuterol/Ipratropium 1 amp 06/08/17 13:43 Duoneb - NEB Q6H PRN WHEEZING Amino Acids 30 ml 05/26/17 10:00 06/11/17 09:53 Prosource No Carb Liquid Pkt PO 30 ml DAILY [facility] Administration Calcitriol 0.25 mcg 06/11/17 10:30 Rocaltrol Liquid - NGT DAILY [facility] Chlorhexidine Gluconate 1 applic 05/21/17 22:00 06/10/17 22:55 Hibiclens For Decolonization - TP 1 applic HS [facility] Administration Gabapentin 100 mg 05/26/17 22:00 06/11/17 06:28 Neurontin - NGT 100 mg TID [facility] Administration Sodium Chloride 250 mls @ 3,000 mls/hr 06/09/17 11:30 Normal Saline - IV PRN PRN Hypotension during Dialysis Norepinephrine Bitartrate 4, 500 mls @ 37.5 mls/hr 06/09/17 17:00 06/11/17 06 :30 000 mcg/ Dextrose IV 5 mcg/min TITR [facility] 37.5 mls/hr Protocol Administration 5 MCG/MIN Insulin Aspart 1 vial 05/22/17 22:00 06/11/17 08:17 Novolog Vial Sliding Scale - SQ Not Given ACHS [facility] Protocol Midodrine 10 mg 06/09/17 12:15 06/11/17 09:53 Proamatine - PO 10 mg TID-MID [facility] Administration Multivit/Ca Carb/B Cmplx/FA/Prenat 1 tablet 05/22/17 10:00 06/11/17 09:53 Nephro-Pancho - PO 1 tablet DAILY [facility] Administration Pantoprazole Sodium 40 mg 05/25/17 10:00 06/11/17 09:53 Protonix Iv IVPUSH 40 mg BID [facility] Administration Impression 1. ESRD 2. GI bleed likely from hemorrhoids 3. hemorrhoids 4. anemia 5. CAD 6. s/p CABG 7. DM 8. hypotension 9. lactic acidosis 10. volume overload 11. resp failure requiring intubation Plan - pt is s/p trache - pt tolerated HD, she had 2.5 liters removed - vent support - vascular follow up for lower ext gangrene - discussed with ICU team - monitor platelets, heme follow up - monitor pulse ox - will follow Dr Plummer
--- NOTE | 2017-06-11 13:18 | PN ---
Teaching Attending Note Name of Resident: Den Dsouza ATTENDING PHYSICIAN STATEMENT I saw and evaluated the patient. I reviewed the resident's note and discussed the case with the resident. I agree with the resident's findings and plan as documented. SUBJECTIVE: Pt seen and examined in the ICU. s/p tracheostomy. Remains on levophed gtt. Dialyzed this AM. OBJECTIVE: Last Vital Signs Temp Pulse Resp BP Pulse Ox 97.9 F 93 H 14 110/57 100 06/11/17 13:02 06/11/17 13:02 06/11/17 13:02 06/11/17 13:02 06/11/17 12:35 Intake & Output 06/08/17 06/09/17 06/10/17 06/11/17 23:59 23:59 23:59 23:59 Intake Total 805 820.8 1124 346 Output Total 0 0 0 Balance 805 820.8 1124 346 Weight 81.284 kg 83.7 kg 83.37 kg 85.82 kg Gen: vented, sedated Heart: RRR Lung: scattered rhonchi Abd: soft, nontender Ext: + edema CBC, BMP 06/11/17 06:10 06/11/17 06:10 Active Medications Albuterol/Ipratropium (Duoneb -) 1 amp NEB Q6H PRN PRN Reason: WHEEZING Amino Acids (Prosource No Carb Liquid Pkt) 30 ml PO DAILY [facility] Last Admin: 06/11/17 09:53 Dose: 30 ml Calcitriol (Rocaltrol Liquid -) 0.25 mcg NGT DAILY [facility] Last Admin: 06/11/17 11:30 Dose: 0.25 mcg Chlorhexidine Gluconate (Hibiclens For Decolonization -) 1 applic TP HS [facility] Last Admin: 06/10/17 22:55 Dose: 1 applic Gabapentin (Neurontin -) 100 mg NGT TID [facility] Last Admin: 06/11/17 06:28 Dose: 100 mg Sodium Chloride (Normal Saline -) 250 mls @ 3,000 mls/hr IV PRN PRN PRN Reason: Hypotension during Dialysis Norepinephrine Bitartrate 4, (000 mcg/ Dextrose) 500 mls @ 37.5 mls/hr IV TITR RUEL; 5 MCG/MIN PRN Reason: Protocol Last Admin: 06/11/17 06:30 Dose: 5 mcg/min, 37.5 mls/hr Insulin Aspart (Novolog Vial Sliding Scale -) 1 vial SQ ACHS [facility] PRN Reason: Protocol Last Admin: 06/11/17 13:06 Dose: Not Given Midodrine (Proamatine -) 10 mg PO TID-MID [facility] Last Admin: 06/11/17 09:53 Dose: 10 mg Multivit/Ca Carb/B Cmplx/FA/Prenat (Nephro-Pancho -) 1 tablet PO DAILY [facility] Last Admin: 06/11/17 09:53 Dose: 1 tablet Pantoprazole Sodium (Protonix Iv) 40 mg IVPUSH BID [facility] Last Admin: 06/11/17 09:53 Dose: 40 mg ASSESSMENT AND PLAN: Acute Hypoxic Respiratory Failure Shock - Cardiogenic > Septic GI Bleed +Troponins likely Demand Ischemia LV Systolic Dysfunction Volume Overload Thrombocytopenia Coagulopathy Gangrene CAD s/p CABG ESRD on HD HTN DM - completed empiric antibiotics - continue midodrine - titrate off levophed gtt, maintain MAP >65 - HD per renal with ultrafiltration - s/p steroids - monitor CVP - monitor platelets, coags, fibrinogen level - transfuse as needed - spontaneous breathing trials as tolerated - stop sedation to assess mental status - enteral feeds, will need PEG placement once thrombocytopenia improved - DVT/GI prophylaxis - continue ICU monitoring critical care time spent in reviewing chart, evaluating patient and formulating plan 35 min
--- NOTE | 2017-06-11 15:02 | PN ---
Physical Exam: SUBJECTIVE: Patient seen and examined Pt is s/p trach procedure. Pt still sedated and unresponsive. OBJECTIVE: Vital Signs Period Temp Pulse Resp BP Sys/Ceron Pulse Ox Last 24 Hr 66 F-99.0 F 8-112 14-18 77-156/41-69 99-100 GENERAL: middle aged female, sedated on vent with trach, NG tube in place, minimally responsive HEENT: trach and NG tube in place LUNGS: rhonchi HEART: tachycardia, no murmurs ABDOMEN: soft, non-distended EXTREMITIES: 2+ edema in all extremities, gangrenous LEs NEUROLOGICAL: sedated on vent Laboratory Results - last 24 hr 06/10/17 06/10/17 06/10/17 06:25 19:35 23:35 WBC RBC Hgb Hct MCV MCH MCHC RDW Plt Count MPV Neutrophils % Neutrophils % (Manual) Band Neutrophils % Lymphocytes % Lymphocytes % (Manual) Monocytes % (Manual) Eosinophils % (Manual) Nucleated RBC % Metamyelocytes Toxic Granulation Anisocytosis Microcytosis Macrocytosis Target Cells Ovalocytes PT with INR INR PTT (Actin FS) Fibrinogen Anticoagulation Therapy No Result Required. Puncture Site Arterial line Arterial line ABG pH 7.55 H 7.48 H ABG pCO2 at Pt Temp 29.4 L 34.8 L ABG pO2 at Pt Temp 408.0 H* 117.0 H D ABG HCO3 25.8 25.7 ABG O2 Sat (Measured) 100.0 H* 98.8 ABG O2 Content 11.6 L 10.5 L ABG Base Excess 3.7 H 2.5 H Dilip Test Positive No Result Required. O2 Delivery Device Vent Ventilator Oxygen Flow Rate 100% 40% Vent Mode No Result Required. A/c Vent Rate 18 14 Mechanical Rate No Result Required. Yes PEEP 5.0 5.0 Pressure Support Vent 450 Sodium Potassium Chloride Carbon Dioxide Anion Gap BUN Creatinine Creat Clearance w eGFR Random Glucose Calcium Phosphorus Magnesium Iron 13 L TIBC 88 L Iron Saturation 15 Total Bilirubin AST ALT Alkaline Phosphatase Total Protein Albumin Blood Type Antibody Screen Crossmatch 06/11/17 06/11/17 06/11/17 06:10 06:10 09:40 WBC 4.1 RBC 2.88 L Hgb 7.8 L Hct 23.3 L MCV 81.0 MCH 27.1 MCHC 33.4 RDW 20.8 H Plt Count 29 L* D MPV 10.1 Neutrophils % No Result Required. Neutrophils % (Manual) 60.0 Band Neutrophils % 24.0 Lymphocytes % No Result Required. Lymphocytes % (Manual) 3.0 L D Monocytes % (Manual) 8 D Eosinophils % (Manual) 2.0 D Nucleated RBC % 4 H Metamyelocytes 2 D Toxic Granulation 1+ Anisocytosis 1+ Microcytosis 1+ Macrocytosis 1+ Target Cells 1+ Ovalocytes 1+ PT with INR 14.90 H INR 1.32 H PTT (Actin FS) 37.8 H Fibrinogen Anticoagulation Therapy Puncture Site ABG pH ABG pCO2 at Pt Temp ABG pO2 at Pt Temp ABG HCO3 ABG O2 Sat (Measured) ABG O2 Content ABG Base Excess Dilip Test O2 Delivery Device Oxygen Flow Rate Vent Mode Vent Rate Mechanical Rate PEEP Pressure Support Vent Sodium 140 Potassium 3.9 Chloride 99 Carbon Dioxide 27 Anion Gap 14 BUN 51 H Creatinine 2.7 H Creat Clearance w eGFR 18.10 Random Glucose 127 H Calcium 8.2 L Phosphorus 3.3 Magnesium 2.1 Iron TIBC Iron Saturation Total Bilirubin 3.2 H D AST 33 ALT 11 L Alkaline Phosphatase 102 Total Protein 4.8 L Albumin 1.9 L Blood Type Antibody Screen Crossmatch 06/11/17 06/11/17 09:40 10:03 WBC RBC Hgb Hct MCV MCH MCHC RDW Plt Count MPV Neutrophils % Neutrophils % (Manual) Band Neutrophils % Lymphocytes % Lymphocytes % (Manual) Monocytes % (Manual) Eosinophils % (Manual) Nucleated RBC % Metamyelocytes Toxic Granulation Anisocytosis Microcytosis Macrocytosis Target Cells Ovalocytes PT with INR INR PTT (Actin FS) Fibrinogen 677.0 H Anticoagulation Therapy Puncture Site ABG pH ABG pCO2 at Pt Temp ABG pO2 at Pt Temp ABG HCO3 ABG O2 Sat (Measured) ABG O2 Content ABG Base Excess Dilip Test O2 Delivery Device Oxygen Flow Rate Vent Mode Vent Rate Mechanical Rate PEEP Pressure Support Vent Sodium Potassium Chloride Carbon Dioxide Anion Gap BUN Creatinine Creat Clearance w eGFR Random Glucose Calcium Phosphorus Magnesium Iron TIBC Iron Saturation Total Bilirubin AST ALT Alkaline Phosphatase Total Protein Albumin Blood Type O POSITIVE Antibody Screen Negative Crossmatch See Detail Active Medications Generic Name Dose Route Start Last Admin Trade Name Freq PRN Reason Stop Dose Admin Albuterol/Ipratropium 1 amp 06/08/17 13:43 Duoneb - NEB Q6H PRN WHEEZING Amino Acids 30 ml 03/26/18 10:00 06/11/17 09:53 Prosource No Carb Liquid Pkt PO 30 ml DAILY [facility] Administration Calcitriol 0.25 mcg 06/11/17 10:30 06/11/17 11:30 Rocaltrol Liquid - NGT 0.25 mcg DAILY [facility] Administration Chlorhexidine Gluconate 1 applic 05/21/17 22:00 06/10/17 22:55 Hibiclens For Decolonization - TP 1 applic HS [facility] Administration Gabapentin 100 mg 05/26/17 22:00 06/11/17 14:48 Neurontin - NGT 100 mg TID [facility] Administration Sodium Chloride 250 mls @ 3,000 mls/hr 06/09/17 11:30 Normal Saline - IV PRN PRN Hypotension during Dialysis Norepinephrine Bitartrate 4, 500 mls @ 37.5 mls/hr 06/09/17 17:00 06/11/17 06 :30 000 mcg/ Dextrose IV 5 mcg/min TITR [facility] 37.5 mls/hr Protocol Administration 5 MCG/MIN Insulin Aspart 1 vial 05/22/17 22:00 06/11/17 13:06 Novolog Vial Sliding Scale - SQ Not Given ACHS [facility] Protocol Midodrine 10 mg 06/09/17 12:15 06/11/17 14:47 Proamatine - PO 10 mg TID-MID [facility] Administration Multivit/Ca Carb/B Cmplx/FA/Prenat 1 tablet 05/22/17 10:00 06/11/17 09:53 Nephro-Pancho - PO 1 tablet DAILY [facility] Administration Pantoprazole Sodium 40 mg 05/25/17 10:00 06/11/17 09:53 Protonix Iv IVPUSH 40 mg BID [facility] Administration ASSESSMENT/PLAN: 56F with PMH of DM, HTN, [place] (s/p CABG 03/2017), ESRD (on HD MWF), and hemorrhoids , admitted to the ICU with shock, coagulopathy, currently off of abx, back on pressors, s/p trach on 06/10. CV # shock - wean off of levophed as tolerated, maintain MAP > 65 - ID (Dr. Shen) recs appreciated, off of abx for several days - continue midodrine 10mg TID # CAD (s/p CABG) and systolic CHF - Cardiology (Dr. Stapleton) recs appreciated: no AC 2/2 severe anemia, thrombocytopenia, and recent bleed requiring transfusion # dry gangrene to susan feet - continue to monitor - amputation once stable Resp # acute hypoxic respiratory failure - intubated, s/p trach on 06/10. propofol d/c'd. - continue duonebs and Asmanex Nephro # ESRD with HD - anuric - Nephrology (Dr. Plummer) recs appreciated. HD to be done today - avoid nephrotoxic agents GI # GI bleed - likely 2/2 hemorrhoids - hgb of 7.8, down from 7.9 yesterday - per hematology, pt given 1 unit of PRBCs Heme #thrombocytopenia -platelets of 29 today -per heme, 1 unit of mono-donor platelets given -continue to monitor platelets Endo # DM - BGMs - SSI - continue Neurontin FEN/ppx - Fluids: via NG tube - Electrolytes: electrolytes wnl - Nutrition: Nepro to goal of 40 ml/hr x 24 hrs, Prosource 30ml daily - DVT chemoprophylaxis: held 2/2 thrombocytopenia and mechanical ppx held 2/ 2 PAD and gangrene - GI ppx with Protonix Dispo - Full Code - family member spoken to regarding peg tube for pt. Family member stated that he will speak to his other family members and let us know Case discussed with attending, Dr. Vargas. -Den Dsouza MD PGY1 ICU Team Visit type - Emergency Visit Emergency Visit: Yes ED Registration Date: 05/21/17 Care time: The patient presented to the Emergency Department on the above date and was hospitalized for further evaluation of their emergent condition. - New Patient This patient is new to me today: No - Critical Care Critical Care patient: Yes Total Critical Care Time (in minutes): 36 Critical Care Statement: The care of this patient involved high complexity decision making to prevent further life threatening deterioration of the patient 's condition and/or to evaluate & treat vital organ system(s) failure or risk of failure.
--- NOTE | 2017-06-11 16:09 | PN ---
Progress Note (short form) - Note Progress Note: Patient seen and examined events noted chart reviewed Cor: RSR, No murmurs, No gallops Lungs: Clear to P&A Abd: Soft, Normal bowel sounds, anasarca Temp Pulse Resp BP Pulse Ox 98.3 F 95 H 15 97/52 100 06/11/17 15:00 06/11/17 15:00 06/11/17 15:00 06/11/17 15:00 06/11/17 12:35 CBC, BMP 06/11/17 06:10 06/11/17 06:10 Current Medications Generic Name Dose Route Start Last Admin Trade Name Freq PRN Reason Stop Dose Admin Albuterol/Ipratropium 1 amp 06/08/17 13:43 Duoneb - NEB Q6H PRN WHEEZING Amino Acids 30 ml 05/26/17 10:00 06/11/17 09:53 Prosource No Carb Liquid Pkt PO 30 ml DAILY [facility] Administration Calcitriol 0.25 mcg 06/11/17 10:30 06/11/17 11:30 Rocaltrol Liquid - NGT 0.25 mcg DAILY [facility] Administration Chlorhexidine Gluconate 1 applic 05/21/17 22:00 06/10/17 22:55 Hibiclens For Decolonization - TP 1 applic HS [facility] Administration Gabapentin 100 mg 05/26/17 22:00 06/11/17 14:48 Neurontin - NGT 100 mg TID [facility] Administration Sodium Chloride 250 mls @ 3,000 mls/hr 06/09/17 11:30 Normal Saline - IV PRN PRN Hypotension during Dialysis Norepinephrine Bitartrate 4, 500 mls @ 37.5 mls/hr 06/09/17 17:00 06/11/17 06 :30 000 mcg/ Dextrose IV 5 mcg/min TITR [facility] 37.5 mls/hr Protocol Administration 5 MCG/MIN Insulin Aspart 1 vial 05/22/17 22:00 06/11/17 13:06 Novolog Vial Sliding Scale - SQ Not Given ACHS [facility] Protocol Midodrine 10 mg 06/09/17 12:15 06/11/17 14:47 Proamatine - PO 10 mg TID-MID [facility] Administration Multivit/Ca Carb/B Cmplx/FA/Prenat 1 tablet 05/22/17 10:00 04/11/18 09:53 Nephro-Pancho - PO 1 tablet DAILY [facility] Administration Pantoprazole Sodium 40 mg 05/25/17 10:00 06/11/17 09:53 Protonix Iv IVPUSH 40 mg BID [facility] Administration coagulopathy/thrombocytopenia--multifactorial transfuse monodonor platelets/cryo/FFP if actively beeding or platelets < 20-30, 000 or fibrinogen < 100 monitor CBC/Coags Today , PRBCS/Platelets anemia of chronic disease--ESRD procrit per renal Problem List - Problems (1) Coagulopathy Code(s): D68.9 - COAGULATION DEFECT, UNSPECIFIED (2) Gangrene Code(s): I96 - GANGRENE, NOT ELSEWHERE CLASSIFIED (3) GI bleed Code(s): K92.2 - GASTROINTESTINAL HEMORRHAGE, UNSPECIFIED (4) Hx of CABG Code(s): Z95.1 - PRESENCE OF AORTOCORONARY BYPASS GRAFT
[2017-06-11 19:35] LABS: HEMATOCRIT 28.8 % (32.4-45.2); HEMOGLOBIN 9.7 GM/dL (10.7-15.3); MCHC 33.7 g/dl (32.0-36.0); MEAN PLT VOLUME 8.7 fl (7.5-11.1); PLATELET COUNT 43 K/MM3 (134-434); RBC 3.47 M/mm3 (3.60-5.2); RDW 18.4 % (11.6-15.6); WHITE BLOOD COUNT 3.4 K/mm3 (4.0-10.0)
[2017-06-11] MEDS ORDERED: PT OWN MED DRAWER 7, Y5N ONE (20:44)
[2017-06-11] MEDS: CHLORHEXIDINE GLUCONATE 4% CLEANSER FOR DECOLONIZATION TP SCH (21:27)
[2017-06-12] MEDS ORDERED: NOREPINEPHRINE BITARTRATE 4 MG/4 ML ML IV ONE ×2 (04:53→19:27)
[2017-06-12] MEDS: GABAPENTIN 100 MG CAPSULE (FP) NGT SCH ×3 (06:26→21:07)
[2017-06-12] MEDS: INSULIN SLIDING SCALE (NOVOLOG) 1 VIAL SQ SCH ×4 (06:26→21:08)
[2017-06-12] MEDS: NOREPINEPHRINE BITARTRATE 4,000 MCG in DEXTROSE 5%-WATER - 496 ML IV SCH ×3 (06:27→21:07)
[2017-06-12 07:04] LABS: EOS % 1.2 % (0-4.5); HEMATOCRIT 27.3 % (32.4-45.2); HEMOGLOBIN 9.3 GM/dL (10.7-15.3); LYMPH % 6.1 % (8-40); MCHC 34.2 g/dl (32.0-36.0); MEAN PLT VOLUME 9.2 fl (7.5-11.1); MONO % 0.8 % (3.8-10.2); NEUT % 91.9 % (42.8-82.8); PLATELET COUNT 38 K/MM3 (134-434); RBC 3.33 M/mm3 (3.60-5.2); RDW 19.6 % (11.6-15.6); WHITE BLOOD COUNT 4.2 K/mm3 (4.0-10.0)
[2017-06-12 07:22] LABS: CHLORIDE 100 mmol/L (98-107); POTASSIUM 3.5 mmol/L (3.5-5.1); SODIUM 140 mmol/L (136-145)
[2017-06-12 07:30] LABS: ALBUMIN 1.8 g/dl (3.4-5.0); ALK PHOS 122 U/L (45-117); ANION GAP 12 (8-16); BLOOD UREA NITROGEN 37 mg/dL (7-18); CALCIUM 8.7 mg/dL (8.5-10.1); CO2 28 mmol/L (21-32); CREATININE 2.1 mg/dL (0.55-1.02); GLUCOSE,RANDOM 141 mg/dL (74-106); MAGNESIUM 1.9 mg/dL (1.8-2.4); PHOSPHOROUS 2.6 mg/dL (2.5-4.9); SGOT/AST 26 U/L (15-37); SGPT/ALT 9 U/L (12-78)
[2017-06-12 07:39] LABS: ADD RBC MORPHOLOGY YES
[2017-06-12] MEDS ORDERED: AMIODARONE HCL INJECTION 150 MG in DEXTROSE 5%-WATER - 97 ML IVPB ONE (07:45)
[2017-06-12 07:56] LABS: INR 1.35 (0.82-1.09)
[2017-06-12 07:58] LABS: ACTIVATED PTT 44.2 SECONDS (26.9-34.4)
[2017-06-12 08:00] LABS: ARTERIAL BLD GAS O2 SATURATION 91.5 % (90-98.9); ARTERIAL BLOOD GAS BASE EXCESS 3.6 meq/l (-2-2); ARTERIAL BLOOD GAS PO2 59.7 mmHg (80-100); ARTERIAL BLOOD GAS pH 7.46 (7.35-7.45)
[2017-06-12] MEDS: AMIODARONE HCL INJECTION 450 MG in DEXTROSE 5%-WATER - 241 ML IVPB SCH ×2 (08:02→17:09)
[2017-06-12 10:52] LABS: FIBRINOGEN > 500.0 mg/dL (238-498)
[2017-06-12] MEDS: MIDODRINE HCL 5 MG TABLET PO SCH ×3 (10:58→17:19)
[2017-06-12] MEDS: VITAMIN B COMP W-C 1 EA TABLET PO SCH (10:58)
[2017-06-12] MEDS: AMINO ACIDS/PROTEIN HYDROLYS 30 ML LIQUID.PKT PO SCH (10:58)
[2017-06-12] MEDS: PANTOPRAZOLE SODIUM 40 MG VIAL IVPUSH SCH ×2 (10:59→21:07)
--- NOTE | 2017-06-12 11:18 | PN ---
Progress Note, Physician Chief Complaint: had just received multiple shocks for Vtach poorly responsive on levophed drip on Amiodarone drip - Current Medication List Current Medications: Active Medications Albuterol/Ipratropium (Duoneb -) 1 amp NEB Q6H PRN PRN Reason: WHEEZING Amino Acids (Prosource No Carb Liquid Pkt) 30 ml PO DAILY [facility] Last Admin: 06/12/17 10:58 Dose: 30 ml Calcitriol (Rocaltrol Liquid -) 0.25 mcg NGT DAILY [facility] Last Admin: 06/11/17 11:30 Dose: 0.25 mcg Chlorhexidine Gluconate (Hibiclens For Decolonization -) 1 applic TP HS [facility] Last Admin: 06/11/17 21:27 Dose: 1 applic Gabapentin (Neurontin -) 100 mg NGT TID [facility] Last Admin: 06/12/17 06:26 Dose: 100 mg Sodium Chloride (Normal Saline -) 250 mls @ 3,000 mls/hr IV PRN PRN PRN Reason: Hypotension during Dialysis Norepinephrine Bitartrate 4, (000 mcg/ Dextrose) 500 mls @ 37.5 mls/hr IV TITR RU[facility]; 5 MCG/MIN PRN Reason: Protocol Last Admin: 06/12/17 06:27 Dose: 6 mcg/min, 45 mls/hr Amiodarone HCl 450 mg/ (Dextrose) 250 mls @ 16.66 mls/hr IVPB TITR [facility]; 0.5 MG/ MIN PRN Reason: Protocol Last Admin: 06/12/17 08:02 Dose: 1 mg/min, 33.33 mls/hr Insulin Aspart (Novolog Vial Sliding Scale -) 1 vial SQ ACHS [facility] PRN Reason: Protocol Last Admin: 06/12/17 11:00 Dose: 2 units Midodrine (Proamatine -) 10 mg PO TID-MID [facility] Last Admin: 06/12/17 10:58 Dose: 10 mg Multivit/Ca Carb/B Cmplx/FA/Prenat (Nephro-Pancho -) 1 tablet PO DAILY [facility] Last Admin: 06/12/17 10:58 Dose: 1 tablet Pantoprazole Sodium (Protonix Iv) 40 mg IVPUSH BID [facility] Last Admin: 06/12/17 10:59 Dose: 40 mg - Objective Vital Signs: Vital Signs Temperature 97.8 F 06/12/17 10:00 Pulse Rate 114 H 06/12/17 10:00 Respiratory Rate 18 06/12/17 10:00 Blood Pressure 113/65 06/12/17 10:00 O2 Sat by Pulse Oximetry (%) 100 06/12/17 09:00 Constitutional: Yes: Ashen Cardiovascular: Yes: Tachycardia Respiratory: Yes: Diminished, Mechanically Ventilated Gastrointestinal: Yes: Abdomen, Obese. No: Hypoactive Bowel Sounds, Tenderness Extremities: Yes: Other (gangrene B/L feet) Edema: Yes (anasarca) Labs: CBC, BMP 06/12/17 06:10 06/12/17 06:10 INR, PTT INR 1.35 (0.82-1.09) H 06/12/17 06:10 Fibrinogen > 500.0 mg/dL (238-498) H D 06/12/17 06:10 Problem List - Problems (1) Anemia Code(s): D64.9 - ANEMIA, UNSPECIFIED (2) CAD (coronary artery disease) Code(s): I25.10 - ATHSCL HEART DISEASE OF [place] CORONARY ARTERY W/O ANG PCTRS Qualifiers: Coronary Disease-Associated Artery/Lesion type: [place] artery Associated angina: without angina (3) ESRD (end stage renal disease) Code(s): N18.6 - END STAGE RENAL DISEASE (4) GI bleed Code(s): K92.2 - GASTROINTESTINAL HEMORRHAGE, UNSPECIFIED (5) Gangrene Code(s): I96 - GANGRENE, NOT ELSEWHERE CLASSIFIED (6) H/O heart valve replacement with bioprosthetic valve Code(s): Z95.3 - PRESENCE OF XENOGENIC HEART VALVE (7) Hx of CABG Code(s): Z95.1 - PRESENCE OF AORTOCORONARY BYPASS GRAFT (8) Lower GI bleed Code(s): K92.2 - GASTROINTESTINAL HEMORRHAGE, UNSPECIFIED (9) Sepsis Code(s): A41.9 - SEPSIS, UNSPECIFIED ORGANISM Assessment/Plan A/P Hypovolemic shock GI bleeding ESRD on HD CAD , s/p CABG, MV and TV replacement AMS Gangrene of b/l feet and left ring finger thrombocytopenia Vtach -- on pressors --s/p trach --labs noted -- prognosis poor -- cultures negative -- s/p multiple shocks -- outcome is poor-- need palliative care eval - to d/w family about goals of care
[2017-06-12] MEDS: CALCITRIOL 1 MCG/ML BOT NGT SCH (11:46)
--- NOTE | 2017-06-12 12:14 | PN ---
Teaching Attending Note Name of Resident: Den Dsouza ATTENDING PHYSICIAN STATEMENT I saw and evaluated the patient. I reviewed the resident's note and discussed the case with the resident. I agree with the resident's findings and plan as documented. SUBJECTIVE: Pt seen and examined in the ICU. Multiple episodes of sustained VT this AM defibrillated 14 times. Amiodarone gtt started now in sinus. OBJECTIVE: Last Vital Signs Temp Pulse Resp BP Pulse Ox 97.8 F 104 H 17 117/65 100 06/12/17 10:00 06/12/17 12:00 06/12/17 12:00 06/12/17 12:00 06/12/17 09:00 Intake & Output 06/09/17 06/10/17 06/11/17 06/12/17 23:59 23:59 23:59 23:59 Intake Total 820.8 1124 1940.5 495 Output Total 0 0 Balance 820.8 1124 1940.5 495 Weight 83.7 kg 83.37 kg 85.82 kg 84.992 kg Gen: vented, arousable Heart: tachycardic, regular Lung: scattered rhonchi Abd: soft, nontender Ext: + edema CBC, BMP 06/12/17 06:10 06/12/17 06:10 Active Medications Albuterol/Ipratropium (Duoneb -) 1 amp NEB Q6H PRN PRN Reason: WHEEZING Amino Acids (Prosource No Carb Liquid Pkt) 30 ml PO DAILY [facility] Last Admin: 06/12/17 10:58 Dose: 30 ml Calcitriol (Rocaltrol Liquid -) 0.25 mcg NGT DAILY [facility] Last Admin: 06/12/17 11:46 Dose: 0.25 mcg Chlorhexidine Gluconate (Hibiclens For Decolonization -) 1 applic TP HS [facility] Last Admin: 06/11/17 21:27 Dose: 1 applic Gabapentin (Neurontin -) 100 mg NGT TID [facility] Last Admin: 06/12/17 06:26 Dose: 100 mg Sodium Chloride (Normal Saline -) 250 mls @ 3,000 mls/hr IV PRN PRN PRN Reason: Hypotension during Dialysis Norepinephrine Bitartrate 4, (000 mcg/ Dextrose) 500 mls @ 37.5 mls/hr IV TITR RUEL; 5 MCG/MIN PRN Reason: Protocol Last Admin: 06/12/17 06:27 Dose: 6 mcg/min, 45 mls/hr Amiodarone HCl 450 mg/ (Dextrose) 250 mls @ 16.66 mls/hr IVPB TITR RUEL; 0.5 MG/ MIN PRN Reason: Protocol Last Admin: 06/12/17 08:02 Dose: 1 mg/min, 33.33 mls/hr Insulin Aspart (Novolog Vial Sliding Scale -) 1 vial SQ ACHS [facility] PRN Reason: Protocol Last Admin: 06/12/17 11:00 Dose: 2 units Midodrine (Proamatine -) 10 mg PO TID-MID [facility] Last Admin: 06/12/17 10:58 Dose: 10 mg Multivit/Ca Carb/B Cmplx/FA/Prenat (Nephro-Pancho -) 1 tablet PO DAILY [facility] Last Admin: 06/12/17 10:58 Dose: 1 tablet Pantoprazole Sodium (Protonix Iv) 40 mg IVPUSH BID [facility] Last Admin: 06/12/17 10:59 Dose: 40 mg ASSESSMENT AND PLAN: Acute Hypoxic Respiratory Failure Shock - Cardiogenic > Septic GI Bleed +Troponins likely Demand Ischemia LV Systolic Dysfunction Ventricular Tachycardia Volume Overload Thrombocytopenia Coagulopathy Gangrene CAD s/p CABG ESRD on HD HTN DM - continue amiodarone gtt - recheck echocardiogram - monitor and replete lytes - completed empiric antibiotics - continue midodrine - titrate off levophed gtt, maintain MAP >65 - HD per renal with ultrafiltration - s/p steroids - monitor CVP - monitor platelets, coags, fibrinogen level - transfuse as needed - spontaneous breathing trials as tolerated - stop sedation to assess mental status - enteral feeds, will need PEG placement once thrombocytopenia improved - DVT/GI prophylaxis - continue ICU monitoring - poor overall prognosis, continue discussions regarding goals of care, advanced directives critical care time spent in reviewing chart, evaluating patient and formulating plan 45 min
--- NOTE | 2017-06-12 12:36 | RAPID ---
Physical Examination Vital Signs: Vital Signs Temperature 97.8 F 06/12/17 10:00 Pulse Rate 104 H 06/12/17 12:00 Respiratory Rate 17 06/12/17 12:00 Blood Pressure 117/65 06/12/17 12:00 O2 Sat by Pulse Oximetry (%) 100 06/12/17 09:00 Labs: CBC, BMP 06/12/17 06:10 06/12/17 06:10 Rapid Response - Rapid Response Assessment: Briefly, patient is a 56 year old female with a PMHx of ESRD ON hd, CAD s/p CABG , BioMVR &TVR, Severe PVD and PAD who was admitted to the ICU for shock and coagulopathy requiring pressors and intubation. At 07:30 this morning, patient went into Vtach requiring multiple shocks x14. Patient's HR was in the 190's-200's and hypotensive. Patient received three amps of Sodium bicarb, calcium chloride, and Magnesium. Amiodarone bolus 150 and drip was started and patients rhythm stabilized, as well as her vitals. U/S done at bedside and revealed no tamponade or pericardial effusions. Rest per rapid response sheet PLAN: -CBC -CMP -CARDIAC PROFILE -LACTIC -ABG -CHEST X-RAY -ECHO -INR/PTT -Continue Pressord and wean off as tolerated. -Continue to monitor Electrolytes -Patient's family now considering DNR/DNI and palliative care.
--- NOTE | 2017-06-12 15:25 | PN ---
Physical Exam: SUBJECTIVE: Patient seen and examined No acute events overnight. This am, pt went into unstable Vtach becoming hypotensive on levo, for which rapid response was called. Pulse was never lost. Pt was ultimately given 14 shocks, amiodarone, Mg, calcium, and sodium bicarb before stabilizing. Bedside US did not reveal any tamponade. Morning labs revealed no significant abnormalities. CXR showed no significant change from yesterday. Cardiology was called and family was informed of situation and told to come in. Pt's sister stated that she wanted to make pt DNR/DNI, was told to discuss with palliative care and complete all necessary documentation. OBJECTIVE: Vital Signs Period Temp Pulse Resp BP Sys/Ceron Pulse Ox Last 24 Hr 97.8 F-100.8 F 99-114 14-20 81-117/43-69 96-100 GENERAL: middle aged female, sedated on vent with trach, NG tube in place, minimally responsive HEENT: trach and NG tube in place LUNGS: rhonchi HEART: tachycardia, no murmurs ABDOMEN: soft, non-distended EXTREMITIES: 2+ edema in all extremities, gangrenous LEs NEUROLOGICAL: sedated on vent Laboratory Results - last 24 hr 06/10/17 06/11/17 06/12/17 06:25 Unknown 06:10 WBC 3.4 L 4.2 RBC 3.47 L D 3.33 L Hgb 9.7 L D 9.3 L Hct 24.7 L 28.8 L D 27.3 L MCV 83.0 82.0 MCH 28.0 28.0 MCHC 33.7 34.2 RDW 18.4 H D 19.6 H Plt Count 43 L D 38 L MPV 8.7 D 9.2 Neutrophils % 91.9 H Lymphocytes % 6.1 L D Monocytes % 0.8 L Eosinophils % 1.2 D Basophils % 0.0 PT with INR INR PTT (Actin FS) Fibrinogen Puncture Site ABG pH ABG pCO2 at Pt Temp ABG pO2 at Pt Temp ABG HCO3 ABG O2 Sat (Measured) ABG O2 Content ABG Base Excess Dilip Test O2 Delivery Device Oxygen Flow Rate Vent Mode Vent Rate PEEP Pressure Support Vent Sodium Potassium Chloride Carbon Dioxide Anion Gap BUN Creatinine Creat Clearance w eGFR Random Glucose Calcium Phosphorus Magnesium Total Bilirubin AST ALT Alkaline Phosphatase Troponin I Total Protein Albumin Folate >2510 Folate Hemolysate >620.0 06/12/17 06/12/17 06/12/17 06:10 06:10 07:44 WBC RBC Hgb Hct MCV MCH MCHC RDW Plt Count MPV Neutrophils % Lymphocytes % Monocytes % Eosinophils % Basophils % PT with INR 15.30 H INR 1.35 H PTT (Actin FS) 44.2 H Fibrinogen > 500.0 H D Puncture Site Arterial line ABG pH 7.46 H ABG pCO2 at Pt Temp 39.0 ABG pO2 at Pt Temp 59.7 L D ABG HCO3 27.2 H ABG O2 Sat (Measured) 91.5 ABG O2 Content 11.8 L ABG Base Excess 3.6 H Dilip Test Not applicable O2 Delivery Device Other Oxygen Flow Rate 40% Vent Mode A/c Vent Rate 14 PEEP 5.0 Pressure Support Vent 450 Sodium 140 Potassium 3.5 Chloride 100 Carbon Dioxide 28 Anion Gap 12 BUN 37 H Creatinine 2.1 H Creat Clearance w eGFR 24.19 Random Glucose 141 H Calcium 8.7 Phosphorus 2.6 Magnesium 1.9 Total Bilirubin 4.0 H D AST 26 ALT 9 L Alkaline Phosphatase 122 H Troponin I Total Protein 5.0 L Albumin 1.8 L Folate Folate Hemolysate 06/12/17 08:00 WBC RBC Hgb Hct MCV MCH MCHC RDW Plt Count MPV Neutrophils % Lymphocytes % Monocytes % Eosinophils % Basophils % PT with INR INR PTT (Actin FS) Fibrinogen Puncture Site ABG pH ABG pCO2 at Pt Temp ABG pO2 at Pt Temp ABG HCO3 ABG O2 Sat (Measured) ABG O2 Content ABG Base Excess Dilip Test O2 Delivery Device Oxygen Flow Rate Vent Mode Vent Rate PEEP Pressure Support Vent Sodium Potassium Chloride Carbon Dioxide Anion Gap BUN Creatinine Creat Clearance w eGFR Random Glucose Calcium Phosphorus Magnesium Total Bilirubin AST ALT Alkaline Phosphatase Troponin I 1.79 H* Total Protein Albumin Folate Folate Hemolysate Active Medications Generic Name Dose Route Start Last Admin Trade Name Freq PRN Reason Stop Dose Admin Albuterol/Ipratropium 1 amp 06/08/17 13:43 Duoneb - NEB Q6H PRN WHEEZING Amino Acids 30 ml 05/26/17 10:00 06/12/17 10:58 Prosource No Carb Liquid Pkt PO 30 ml DAILY RUEL Administration Calcitriol 0.25 mcg 06/11/17 10:30 06/12/17 11:46 Rocaltrol Liquid - NGT 0.25 mcg DAILY RUEL Administration Chlorhexidine Gluconate 1 applic 05/21/17 22:00 06/11/17 21:27 Hibiclens For Decolonization - TP 1 applic HS RUEL Administration Gabapentin 100 mg 05/26/17 22:00 06/12/17 13:45 Neurontin - NGT 100 mg TID RUEL Administration Sodium Chloride 250 mls @ 3,000 mls/hr 06/09/17 11:30 Normal Saline - IV PRN PRN Hypotension during Dialysis Norepinephrine Bitartrate 4, 500 mls @ 37.5 mls/hr 06/09/17 17:00 06/12/17 06 :27 000 mcg/ Dextrose IV 6 mcg/min TITR RUEL 45 mls/hr Protocol Administration 5 MCG/MIN Amiodarone HCl 450 mg/ 250 mls @ 16.66 mls/hr 06/12/17 08:00 06/12/17 08:02 Dextrose IVPB 1 mg/min TITR RUEL 33.33 mls/hr Protocol Administration 0.5 MG/MIN Insulin Aspart 1 vial 05/22/17 22:00 06/12/17 11:00 Novolog Vial Sliding Scale - SQ 2 units ACHS RUEL Administration Protocol Midodrine 10 mg 06/09/17 12:15 06/12/17 13:45 Proamatine - PO 10 mg TID-MID RUEL Administration Multivit/Ca Carb/B Cmplx/FA/Prenat 1 tablet 05/22/17 10:00 06/12/17 10:58 Nephro-Pancho - PO 1 tablet DAILY RUEL Administration Pantoprazole Sodium 40 mg 05/25/17 10:00 06/12/17 10:59 Protonix Iv IVPUSH 40 mg BID RUEL Administration ASSESSMENT/PLAN: 56F with PMH of DM, HTN, AL (s/p CABG 03/2017), ESRD (on HD MWF), and hemorrhoids , admitted to the ICU with shock, coagulopathy, currently off of abx, on pressors, s/p trach on 06/10. CV # shock - s/p unstable Vtach today, currently on amiodarone gtt - wean off of levophed as tolerated, maintain MAP > 65 - ID (Dr. Shen) recs appreciated, off of abx for several days - continue midodrine 10mg TID - trend trops - f/u echo # CAD (s/p CABG) and systolic CHF - Cardiology (Dr. Stapleton) recs appreciated: no AC 2/2 severe anemia, thrombocytopenia, and recent bleed requiring transfusion # dry gangrene to susan feet - continue to monitor - amputation once stable Resp # acute hypoxic respiratory failure - intubated, s/p trach on 06/10 - continue duonebs and Asmanex Nephro # ESRD with HD - anuric - Nephrology (Dr. Plummer) recs appreciated - avoid nephrotoxic agents GI # GI bleed - likely 2/2 hemorrhoids - hgb of 9.3, s/p 1 unit of PRBCs yesteray Heme #thrombocytopenia -platelets of 38 today, s/p 1 unit of mono-donor platelets yesterday -continue to monitor platelets Endo # DM - BGMs - SSI - continue Neurontin FEN/ppx - Fluids: via NG tube - Electrolytes: electrolytes wnl - Nutrition: Nepro to goal of 40 ml/hr x 24 hrs, Prosource 30ml daily - DVT chemoprophylaxis: held 2/2 thrombocytopenia and mechanical ppx held 2/ 2 PAD and gangrene - GI ppx with Protonix Dispo - DNR/DNI orders in process of being changed Case discussed with attending, Dr. Vargas. -Den Dsouza MD PGY1 ICU Team Visit type - Emergency Visit Emergency Visit: Yes ED Registration Date: 05/21/17 Care time: The patient presented to the Emergency Department on the above date and was hospitalized for further evaluation of their emergent condition. - New Patient This patient is new to me today: No - Critical Care Critical Care patient: Yes Total Critical Care Time (in minutes): 75 Critical Care Statement: The care of this patient involved high complexity decision making to prevent further life threatening deterioration of the patient 's condition and/or to evaluate & treat vital organ system(s) failure or risk of failure.
--- NOTE | 2017-06-12 15:35 | PN ---
Progress Note, Physician Chief Complaint: Multiple shocks for VTach History of Present Illness: This is a 56 year old female with a PMH of ESRD, DM, CABG at [facility], [facility] , [facility]. Admitted 05/22/17 with a GIB. Echocardiogram 05/02/17 with severe LV dysfunction, moderate RV hypokinesis, MV repair, mild MR, severe TV. She was intubated and received a tracheostomy on 06/10/17. She is on pressors and have multiple episodes of VTach requiring multiple shocks. Amiodarone was started and has stablized the rhythm. Troponin I 1.79 Echocardiogram : EF 28% Severe LV systolic dysfunction Global LV hypokinesis Severe TR RVSP 30 - 40 mmHg - Current Medication List Current Medications: Active Medications Albuterol/Ipratropium (Duoneb -) 1 amp NEB Q6H PRN PRN Reason: WHEEZING Amino Acids (Prosource No Carb Liquid Pkt) 30 ml PO DAILY RUEL Last Admin: 06/12/17 10:58 Dose: 30 ml Calcitriol (Rocaltrol Liquid -) 0.25 mcg NGT DAILY RUEL Last Admin: 06/12/17 11:46 Dose: 0.25 mcg Chlorhexidine Gluconate (Hibiclens For Decolonization -) 1 applic TP HS RUEL Last Admin: 06/11/17 21:27 Dose: 1 applic Gabapentin (Neurontin -) 100 mg NGT TID RUEL Last Admin: 06/12/17 13:45 Dose: 100 mg Sodium Chloride (Normal Saline -) 250 mls @ 3,000 mls/hr IV PRN PRN PRN Reason: Hypotension during Dialysis Norepinephrine Bitartrate 4, (000 mcg/ Dextrose) 500 mls @ 37.5 mls/hr IV TITR RUEL; 5 MCG/MIN PRN Reason: Protocol Last Admin: 06/12/17 06:27 Dose: 6 mcg/min, 45 mls/hr Amiodarone HCl 450 mg/ (Dextrose) 250 mls @ 16.66 mls/hr IVPB TITR RUEL; 0.5 MG/ MIN PRN Reason: Protocol Last Admin: 06/12/17 08:02 Dose: 1 mg/min, 33.33 mls/hr Insulin Aspart (Novolog Vial Sliding Scale -) 1 vial SQ ACHS RUEL PRN Reason: Protocol Last Admin: 06/12/17 11:00 Dose: 2 units Midodrine (Proamatine -) 10 mg PO TID-MID [facility] Last Admin: 06/12/17 13:45 Dose: 10 mg Multivit/Ca Carb/B Cmplx/FA/Prenat (Nephro-Pancho -) 1 tablet PO DAILY [facility] Last Admin: 06/12/17 10:58 Dose: 1 tablet Pantoprazole Sodium (Protonix Iv) 40 mg IVPUSH BID [facility] Last Admin: 06/12/17 10:59 Dose: 40 mg - Objective Vital Signs: Vital Signs Temperature 100.8 F H 06/12/17 14:00 Pulse Rate 103 H 06/12/17 14:00 Respiratory Rate 14 06/12/17 14:31 Blood Pressure 106/61 06/12/17 14:00 O2 Sat by Pulse Oximetry (%) 100 06/12/17 13:58 Constitutional: Yes: Other (Intubated) HENT: Yes: Other (Tracheostomy) Cardiovascular: Yes: Pulse Irregular, S1, S2 (2/6 HSM at apex) Respiratory: Yes: Mechanically Ventilated Gastrointestinal: Yes: Soft Labs: CBC, BMP 06/12/17 06:10 06/12/17 06:10 INR, PTT INR 1.35 (0.82-1.09) H 06/12/17 06:10 Fibrinogen > 500.0 mg/dL (238-498) H D 06/12/17 06:10 Assessment/Plan Ventricular Arrhythmias Agree with IV amiodarone load Follow electrolytes Wean off pressors if able Palliative care consult pending
--- NOTE | 2017-06-12 16:13 | PN ---
Progress Note, Physician History of Present Illness: Pt seen and examined at bedside. She went into V-tach and needed to be shocked. - Current Medication List Current Medications: Active Medications Albuterol/Ipratropium (Duoneb -) 1 amp NEB Q6H PRN PRN Reason: WHEEZING Amino Acids (Prosource No Carb Liquid Pkt) 30 ml PO DAILY [facility] Last Admin: 06/12/17 10:58 Dose: 30 ml Calcitriol (Rocaltrol Liquid -) 0.25 mcg NGT DAILY RUEL Last Admin: 06/12/17 11:46 Dose: 0.25 mcg Chlorhexidine Gluconate (Hibiclens For Decolonization -) 1 applic TP HS RUEL Last Admin: 06/11/17 21:27 Dose: 1 applic Gabapentin (Neurontin -) 100 mg NGT TID [facility] Last Admin: 06/12/17 13:45 Dose: 100 mg Sodium Chloride (Normal Saline -) 250 mls @ 3,000 mls/hr IV PRN PRN PRN Reason: Hypotension during Dialysis Norepinephrine Bitartrate 4, (000 mcg/ Dextrose) 500 mls @ 37.5 mls/hr IV TITR RUEL; 5 MCG/MIN PRN Reason: Protocol Last Admin: 06/12/17 06:27 Dose: 6 mcg/min, 45 mls/hr Amiodarone HCl 450 mg/ (Dextrose) 250 mls @ 16.66 mls/hr IVPB TITR RUEL; 0.5 MG/ MIN PRN Reason: Protocol Last Admin: 06/12/17 08:02 Dose: 1 mg/min, 33.33 mls/hr Insulin Aspart (Novolog Vial Sliding Scale -) 1 vial SQ ACHS RUEL PRN Reason: Protocol Last Admin: 06/12/17 11:00 Dose: 2 units Midodrine (Proamatine -) 10 mg PO TID-MID [facility] Last Admin: 06/12/17 13:45 Dose: 10 mg Multivit/Ca Carb/B Cmplx/FA/Prenat (Nephro-Pancho -) 1 tablet PO DAILY [facility] Last Admin: 06/12/17 10:58 Dose: 1 tablet Pantoprazole Sodium (Protonix Iv) 40 mg IVPUSH BID [facility] Last Admin: 06/12/17 10:59 Dose: 40 mg - Objective Vital Signs: Vital Signs Temperature 100.8 F H 06/12/17 14:00 Pulse Rate 103 H 06/12/17 16:00 Respiratory Rate 18 06/12/17 16:00 Blood Pressure 119/65 06/12/17 16:00 O2 Sat by Pulse Oximetry (%) 100 06/12/17 13:58 Constitutional: Yes: Calm Cardiovascular: Yes: S1, S2 Respiratory: Yes: Mechanically Ventilated Gastrointestinal: Yes: Soft Genitourinary: Yes: Incontinence Musculoskeletal: Yes: Muscle Weakness Edema: Yes Edema: LUE: 1+, RUE: 1+, LLE: 1+, RLE: 1+ Integumentary: Yes: Other (gangrene of foot) Neurological: Yes: Lethargy Labs: CBC, BMP 06/12/17 06:10 06/12/17 06:10 INR, PTT INR 1.35 (0.82-1.09) H 06/12/17 06:10 Fibrinogen > 500.0 mg/dL (238-498) H D 06/12/17 06:10 Problem List - Problems (1) ESRD (end stage renal disease) Code(s): N18.6 - END STAGE RENAL DISEASE (2) CAD (coronary artery disease) Code(s): I25.10 - ATHSCL HEART DISEASE OF [place] CORONARY ARTERY W/O ANG PCTRS Qualifiers: Coronary Disease-Associated Artery/Lesion type: [place] artery Associated angina: without angina (3) Hx of CABG Code(s): Z95.1 - PRESENCE OF AORTOCORONARY BYPASS GRAFT (4) Anemia Code(s): D64.9 - ANEMIA, UNSPECIFIED (5) GI bleed Code(s): K92.2 - GASTROINTESTINAL HEMORRHAGE, UNSPECIFIED Assessment/Plan Current Medications Generic Name Dose Route Start Last Admin Trade Name Freq PRN Reason Stop Dose Admin Albuterol/Ipratropium 1 amp 06/08/17 13:43 Duoneb - NEB Q6H PRN WHEEZING Amino Acids 30 ml 05/26/17 10:00 06/12/17 10:58 Prosource No Carb Liquid Pkt PO 30 ml DAILY RUEL Administration Calcitriol 0.25 mcg 06/11/17 10:30 06/12/17 11:46 Rocaltrol Liquid - NGT 0.25 mcg DAILY RUEL Administration Chlorhexidine Gluconate 1 applic 05/21/17 22:00 06/11/17 21:27 Hibiclens For Decolonization - TP 1 applic HS RUEL Administration Gabapentin 100 mg 05/26/17 22:00 06/12/17 13:45 Neurontin - NGT 100 mg TID RUEL Administration Sodium Chloride 250 mls @ 3,000 mls/hr 06/09/17 11:30 Normal Saline - IV PRN PRN Hypotension during Dialysis Norepinephrine Bitartrate 4, 500 mls @ 37.5 mls/hr 06/09/17 17:00 06/12/17 06 :27 000 mcg/ Dextrose IV 6 mcg/min TITR RUEL 45 mls/hr Protocol Administration 5 MCG/MIN Amiodarone HCl 450 mg/ 250 mls @ 16.66 mls/hr 06/12/17 08:00 06/12/17 08:02 Dextrose IVPB 1 mg/min TITR RUEL 33.33 mls/hr Protocol Administration 0.5 MG/MIN Insulin Aspart 1 vial 05/22/17 22:00 06/12/17 11:00 Novolog Vial Sliding Scale - SQ 2 units ACHS RUEL Administration Protocol Midodrine 10 mg 06/09/17 12:15 06/12/17 13:45 Proamatine - PO 10 mg TID-MID RUEL Administration Multivit/Ca Carb/B Cmplx/FA/Prenat 1 tablet 05/22/17 10:00 06/12/17 10:58 Nephro-Pancho - PO 1 tablet DAILY RUEL Administration Pantoprazole Sodium 40 mg 05/25/17 10:00 06/12/17 10:59 Protonix Iv IVPUSH 40 mg BID RUEL Administration Impression 1. ESRD 2. GI bleed likely from hemorrhoids 3. hemorrhoids 4. anemia 5. CAD 6. s/p CABG 7. DM 8. hypotension 9. lactic acidosis 10. volume overload 11. resp failure requiring intubation 12. v-tach Plan - monitor bp - pt dialyzed yesterday - will evaluate for HD in am - overall prognosis is poor - cardio follow up - vent support - monitor pulse ox - will follow Dr Plummer
[2017-06-12] MEDS ORDERED: PT OWN MED DRAWER 7, Y5N ONE (17:21)
[2017-06-12] MEDS ORDERED: AMIODARONE HCL INJECTION 450 MG in DEXTROSE 5%-WATER - 241 ML IVPB SCH (17:30)
--- NOTE | 2017-06-12 17:57 | PN ---
Progress Note (short form) - Note Progress Note: As discussed with the icu team and the HCP, in view of todays events the patient is not a candidate for PEG at this time. Will re-evaluate if and when clinical condition allow for the procedure.
[2017-06-12] MEDS ORDERED: ACETAMINOPHEN 1000 MG/100 ML VIAL (NON FORMULARY) IVPB ONE (19:15)
[2017-06-12] MEDS: CHLORHEXIDINE GLUCONATE 4% CLEANSER FOR DECOLONIZATION TP SCH (21:07)
[2017-06-13] MEDS ORDERED: VASOPRESSIN 50 UNITS in SODIUM CHLORIDE 97.5 ML IVPB SCH (05:45)
[2017-06-13] MEDS: INSULIN SLIDING SCALE (NOVOLOG) 1 VIAL SQ SCH ×2 (06:02→16:30)
[2017-06-13] MEDS: GABAPENTIN 100 MG CAPSULE (FP) NGT SCH (06:05)
[2017-06-13 06:43] VITALS: TEMP 98.8
[2017-06-13 06:48] LABS: ALBUMIN 1.7 g/dl (3.4-5.0); ANION GAP 25 (8-16); BLOOD UREA NITROGEN 49 mg/dL (7-18); CALCIUM 9.1 mg/dL (8.5-10.1); CHLORIDE 98 mmol/L (98-107); CO2 14 mmol/L (21-32); CREATININE 2.6 mg/dL (0.55-1.02); GLUCOSE,RANDOM 110 mg/dL (74-106); HEMOGLOBIN 9.3 GM/dL (10.7-15.3); MAGNESIUM 2.2 mg/dL (1.8-2.4); MCH 27.4 pg (25.7-33.7); MCHC 32.1 g/dl (32.0-36.0); MEAN CELL VOLUME 85.3 fl (80-96); MEAN PLT VOLUME 8.4 fl (7.5-11.1); PHOSPHOROUS 2.9 mg/dL (2.5-4.9); POTASSIUM 3.7 mmol/L (3.5-5.1); RDW 19.6 % (11.6-15.6); SGOT/AST 35 U/L (15-37); SGPT/ALT 9 U/L (12-78); SODIUM 137 mmol/L (136-145); WHITE BLOOD COUNT 4.8 K/mm3 (4.0-10.0)
[2017-06-13 06:51] LABS: ALK PHOS 114 U/L (45-117); BILIRUBIN,TOTAL 4.6 mg/dL (0.2-1.0); TOT PROT 4.9 g/dl (6.4-8.2)
[2017-06-13 07:08] LABS: INR 1.35 (0.82-1.09); PROTHROMBIN TIME (PATIENT) 15.3 SEC (9.98-11.88)
[2017-06-13 07:10] LABS: ACTIVATED PTT 46.8 SECONDS (26.9-34.4)
[2017-06-13 08:04] LABS: PLATELET COUNT 20 K/MM3 (134-434)
[2017-06-13] MEDS ORDERED: VASOPRESSIN 20 UNITS/ML VIAL IV ONE (08:12)
[2017-06-13 08:15] VITALS: BP 83/55; PULSE 125
--- NOTE | 2017-06-13 08:55 | PN ---
Progress Note (short form) - Note Progress Note: Pt seen/ examined. chart reviewed all f/u noted poorly responsive. s/p multiple shocks for vt yesterday on amiodrone drip Vital Signs Temp 98.8 F 06/13/17 06:00 Pulse 125 H 06/13/17 08:00 Resp 24 06/13/17 08:22 BP 83/55 06/13/17 08:00 Pulse Ox 98 06/12/17 21:00 Intake & Output 06/12/17 06/12/17 06/13/17 11:59 23:59 11:59 Intake Total 495 2368.6 688 Output Total 100 Balance 495 2268.6 688 Weight 187 lb 6 oz 190 lb 4 oz Intake: IV 315 962.6 378 Levophed 617.2 259 Levophed - 4,000 Mcg In 315 D5w - 496 ml @ 5 MCG/MIN 37.5 mls/hr IV TITR RUEL Rx#:[id number] amiodarone 345.4 119 IVPB 646 Tube Feeding 140 640 280 Tube Irrigant 40 120 30 Output: Drainage 100 fms stool 100 Other: Voiding Method Diaper Bowel Movement Yes Weight Measurement Method Built in Bedscale Built in Bedscale Active Medications Albuterol/Ipratropium (Duoneb -) 1 amp NEB Q6H PRN PRN Reason: WHEEZING Amino Acids (Prosource No Carb Liquid Pkt) 30 ml PO DAILY [facility] Last Admin: 06/12/17 10:58 Dose: 30 ml Calcitriol (Rocaltrol Liquid -) 0.25 mcg NGT DAILY [facility] Last Admin: 06/12/17 11:46 Dose: 0.25 mcg Chlorhexidine Gluconate (Hibiclens For Decolonization -) 1 applic TP HS [facility] Last Admin: 06/12/17 21:07 Dose: 1 applic Gabapentin (Neurontin -) 100 mg NGT TID [facility] Last Admin: 06/13/17 06:05 Dose: 100 mg Sodium Chloride (Normal Saline -) 250 mls @ 3,000 mls/hr IV PRN PRN PRN Reason: Hypotension during Dialysis Norepinephrine Bitartrate 4, (000 mcg/ Dextrose) 500 mls @ 37.5 mls/hr IV TITR RUEL; 5 MCG/MIN PRN Reason: Protocol Last Titration: 06/13/17 05:40 Dose: 15 mcg/min, 112.5 mls/hr Amiodarone HCl 450 mg/ (Dextrose) 250 mls @ 16.66 mls/hr IVPB TITR RUEL; 0.5 MG/ MIN PRN Reason: Protocol Last Admin: 06/12/17 19:20 Dose: Not Given Vasopressin 50 units/ Sodium (Chloride) 100 mls @ 4.8 mls/hr IVPB TITR RUEL; 2.4 UNITS/HR PRN Reason: Protocol Insulin Aspart (Novolog Vial Sliding Scale -) 1 vial SQ ACHS RUEL PRN Reason: Protocol Last Admin: 06/13/17 06:02 Dose: Not Given Midodrine (Proamatine -) 10 mg PO TID-MID [facility] Last Admin: 06/12/17 17:19 Dose: 10 mg Multivit/Ca Carb/B Cmplx/FA/Prenat (Nephro-Pancho -) 1 tablet PO DAILY [facility] Last Admin: 06/12/17 10:58 Dose: 1 tablet Pantoprazole Sodium (Protonix Iv) 40 mg IVPUSH BID [facility] Last Admin: 06/12/17 21:07 Dose: 40 mg CBC, BMP 06/13/17 06:00 06/13/17 06:00 cxr- noted -- Physical Constitutional: Yes: poorly responsive. Heent--s/p trach / ngt + Cardiovascular: Yes: Tachycardia Respiratory: Yes: Diminished, Mechanically Ventilated. Gastrointestinal: Yes: Abdomen, Obese. No: Hypoactive Bowel Sounds, Tenderness Extremities: Yes: Other (gangrene B/L feet) Edema: Yes (anasarca) Assessment/Plan s/p vt- rapid response Hypovolemic shock GI bleeding ESRD on HD CAD , s/p CABG, MV and TV replacement AMS Gangrene of b/l feet and left ring finger thrombocytopenia -- on pressors --s/p trach ---- prognosis poor . -- -- s/p multiple shocks. -- will follow -- discussed with nursing staff - will discuss goals of care again with family. - Had discussed many times-- family wants everything to be done. - Will discuss with icu team also -- cc time 30 min. Problem List - Problems (1) Respiratory failure Code(s): J96.90 - RESPIRATORY FAILURE, UNSP, UNSP W HYPOXIA OR HYPERCAPNIA (2) Coagulopathy Code(s): D68.9 - COAGULATION DEFECT, UNSPECIFIED (3) GI bleed Code(s): K92.2 - GASTROINTESTINAL HEMORRHAGE, UNSPECIFIED (4) Gangrene Code(s): I96 - GANGRENE, NOT ELSEWHERE CLASSIFIED (5) Hx of CABG Code(s): Z95.1 - PRESENCE OF AORTOCORONARY BYPASS GRAFT
--- NOTE | 2017-06-13 09:30 | EKG ---
Test Reason : Blood Pressure : / mmHG Vent. Rate : 103 BPM Atrial Rate : 197 BPM P-R Int : 000 ms QRS Dur : 100 ms QT Int : 298 ms P-R-T Axes : 000 -17 239 degrees QTc Int : 390 ms ATRIAL FIBRILLATION WITH RAPID VENTRICULAR RESPONSE INCOMPLETE RIGHT BUNDLE BRANCH BLOCK SEPTAL INFARCT , AGE UNDETERMINED ABNORMAL ECG WHEN COMPARED WITH ECG OF 12-JUN-2017 07:51, ATRIAL FIBRILLATION HAS REPLACED WIDE QRS TACHYCARDIA VENT. RATE HAS DECREASED BY 91 BPM Confirmed by SHADI CONWAY MD ([id number]) on 06/13/2017 9:30:26 AM Referred By: Confirmed By:SHADI CONWAY MD
--- NOTE | 2017-06-13 09:31 | EKG ---
Test Reason : Blood Pressure : / mmHG Vent. Rate : 194 BPM Atrial Rate : 096 BPM P-R Int : 000 ms QRS Dur : 164 ms QT Int : 232 ms P-R-T Axes : 000 157 -37 degrees QTc Int : 416 ms POOR DATA QUALITY, INTERPRETATION MAY BE ADVERSELY AFFECTED WIDE QRS TACHYCARDIA WITH OCCASIONAL PREMATURE VENTRICULAR COMPLEXES RIGHT BUNDLE BRANCH BLOCK POSSIBLE LATERAL INFARCT , AGE UNDETERMINED T WAVE ABNORMALITY, CONSIDER INFERIOR ISCHEMIA ABNORMAL ECG WHEN COMPARED WITH ECG OF 25-MAY-2017 11:37, WIDE QRS TACHYCARDIA HAS REPLACED SINUS RHYTHM VENT. RATE HAS INCREASED BY 101 BPM Confirmed by SHADI CONWAY MD ([id number]) on 06/13/2017 9:30:41 AM Referred By: Confirmed By:SHADI CONWAY MD
[2017-06-13] MEDS ORDERED: PT OWN MED DRAWER 7, Y5N ONE (10:44)
[2017-06-13] MEDS ORDERED: NOREPINEPHRINE BITARTRATE 4 MG/4 ML ML IV ONE (11:00)
[2017-06-13] MEDS: VITAMIN B COMP W-C 1 EA TABLET PO SCH (11:19)
[2017-06-13] MEDS: CALCITRIOL 1 MCG/ML BOT NGT SCH (11:19)
[2017-06-13] MEDS: AMINO ACIDS/PROTEIN HYDROLYS 30 ML LIQUID.PKT PO SCH (11:19)
[2017-06-13] MEDS: PANTOPRAZOLE SODIUM 40 MG VIAL IVPUSH SCH (11:19)
[2017-06-13] MEDS: MIDODRINE HCL 5 MG TABLET PO SCH (11:19)
[2017-06-13] MEDS: NOREPINEPHRINE BITARTRATE 4,000 MCG in DEXTROSE 5%-WATER - 496 ML IV SCH (11:25)
[2017-06-13 11:27] LABS: ANISOCYTOSIS 1+; OVALOCYTE 1+; PLATELET ESTIMATE DECREASED; TARGET CELLS 1+; TOXIC GRANULATION 1+
[2017-06-13 11:34] LABS: CORRECTED WBC 4.49 K/mm3
--- NOTE | 2017-06-13 12:48 | HOSP ---
Subjective - Review of Symptoms Events since last encounter: Code 99 was announced at around 11:53am. Code team arrived in room and patient was found to be non-responsive and pulseless. ACLS protocol was started immediately. Family was informed. For details, please refer to the code sheet in paper chart. At around 12:25pm, patient still remained asystole and has no spontaneous breathing, pulse, or heart sounds. Non-responsive to painful stimuli and no corneal reflex. Time of pronounced at 12:25pm on 06/13/2017. Family notified by myself and emotional support given. Physical Examination Vital Signs: Vital Signs Temperature 98.8 F 06/13/17 06:00 Pulse Rate 125 H 06/13/17 08:00 Respiratory Rate 31 H 06/13/17 11:35 Blood Pressure 83/55 06/13/17 08:00 O2 Sat by Pulse Oximetry (%) 97 06/13/17 10:20 Labs: CBC, BMP 06/13/17 06:00 06/13/17 06:00 Visit type - Emergency Visit Emergency Visit: No - New Patient This patient is new to me today: No - Critical Care Critical Care patient: Yes Total Critical Care Time (in minutes): 25
--- NOTE | 2017-06-13 15:52 | PN ---
Progress Note, Physician Chief Complaint: Multiple shocks for VTach Critically ill History of Present Illness: This is a 56 year old female with a PMH of ESRD, DM, CABG at [facility], [facility] , [facility]. Admitted 05/22/17 with a GIB. Echocardiogram 05/02/17 with severe LV dysfunction, moderate RV hypokinesis, MV repair, mild MR, severe TV. She was intubated and received a tracheostomy on 06/10/17. She is on pressors and have multiple episodes of VTach requiring multiple shocks. Amiodarone was started and has stablized the rhythm. Troponin I 1.79 Echocardiogram : EF 28% Severe LV systolic dysfunction Global LV hypokinesis Severe TR RVSP 30 - 40 mmHg - Current Medication List Current Medications: Active Medications Albuterol/Ipratropium (Duoneb -) 1 amp NEB Q6H PRN PRN Reason: WHEEZING Amino Acids (Prosource No Carb Liquid Pkt) 30 ml PO DAILY RUEL Last Admin: 06/13/17 11:19 Dose: 30 ml Calcitriol (Rocaltrol Liquid -) 0.25 mcg NGT DAILY RUEL Last Admin: 06/13/17 11:19 Dose: 0.25 mcg Chlorhexidine Gluconate (Hibiclens For Decolonization -) 1 applic TP HS RUEL Last Admin: 06/12/17 21:07 Dose: 1 applic Gabapentin (Neurontin -) 100 mg NGT TID RUEL Last Admin: 06/13/17 06:05 Dose: 100 mg Sodium Chloride (Normal Saline -) 250 mls @ 3,000 mls/hr IV PRN PRN PRN Reason: Hypotension during Dialysis Norepinephrine Bitartrate 4, (000 mcg/ Dextrose) 500 mls @ 37.5 mls/hr IV TITR RUEL; 5 MCG/MIN PRN Reason: Protocol Last Titration: 06/13/17 05:40 Dose: 15 mcg/min, 112.5 mls/hr Amiodarone HCl 450 mg/ (Dextrose) 250 mls @ 16.66 mls/hr IVPB TITR RUEL; 0.5 MG/ MIN PRN Reason: Protocol Last Admin: 06/12/17 19:20 Dose: Not Given Vasopressin 50 units/ Sodium (Chloride) 100 mls @ 4.8 mls/hr IVPB TITR RUEL; 2.4 UNITS/HR PRN Reason: Protocol Insulin Aspart (Novolog Vial Sliding Scale -) 1 vial SQ ACHS [facility] [place] PRN Reason: Protocol Last Admin: 06/13/17 06:02 Dose: Not Given Midodrine (Proamatine -) 10 mg PO TID-MID [facility] [place] Last Admin: 06/13/17 11:19 Dose: 10 mg Multivit/Ca Carb/B Cmplx/FA/Prenat (Nephro-Pancho -) 1 tablet PO DAILY [facility] [place] Last Admin: 06/13/17 11:19 Dose: 1 tablet Pantoprazole Sodium (Protonix Iv) 40 mg IVPUSH BID [facility] [place] Last Admin: 06/13/17 11:19 Dose: 40 mg - Objective Vital Signs: Vital Signs Temperature 98.8 F 06/13/17 06:00 Pulse Rate 125 H 06/13/17 08:00 Respiratory Rate 31 H 06/13/17 11:35 Blood Pressure 83/55 06/13/17 08:00 O2 Sat by Pulse Oximetry (%) 97 06/13/17 10:20 Constitutional: Yes: Other (Critically ill) HENT: Yes: WNL Neck: Yes: Other (Trach) Cardiovascular: Yes: S1, S2 (Tachycardia) Respiratory: Yes: Mechanically Ventilated Gastrointestinal: Yes: Soft Edema: LLE: 1+, RLE: 1+ Neurological: Yes: Unresponsive Labs: CBC, BMP 06/13/17 06:00 06/13/17 06:00 INR, PTT INR 1.35 (0.82-1.09) H 06/13/17 06:00 Fibrinogen 677.0 mg/dL (238-498) H 06/13/17 06:00 Assessment/Plan Ventricular Arrhythmias Heart rhythm seems to have stabilized with amiodarone Follow electrolytes Wean off pressors if able Would continue amiodarone drip at 0.5 mg/minute Troponin I: 4.79 Likely secondary to demand ischemia, and may also be a result of the multiple shocks Would follow trends Would not anticoagulate at this time especially given that the platlets are 20.
--- NOTE | 2017-06-13 16:44 | PN ---
Physical Exam: SUBJECTIVE: Patient seen and examined No acute events overnight. Pt was still on amiodarone gtt and levo this am, pt unresponsive. A code called at 11:53am today, was unsuccessful, and time of was called at 12:25. OBJECTIVE: Vital Signs Period Temp Pulse Resp BP Sys/Ceron Pulse Ox Last 24 Hr 98.8 F-102.5 F 95-126 14-31 61-107/48-68 97-98 GENERAL: middle aged female, sedated on vent with trach, NG tube in place, unresponsive HEENT: trach and NG tube in place LUNGS: rhonchi HEART: tachycardia, no murmurs ABDOMEN: soft, non-distended EXTREMITIES: 2+ edema in all extremities, gangrenous LEs NEUROLOGICAL: sedated on vent Laboratory Results - last 24 hr 06/12/17 06/12/17 06/12/17 16:42 21:07 21:45 WBC Corrected WBC (auto) RBC Hgb Hct MCV MCH MCHC RDW Plt Count MPV Neutrophils % Neutrophils % (Manual) Band Neutrophils % Lymphocytes % Lymphocytes % (Manual) Monocytes % (Manual) Eosinophils % (Manual) Basophils % (Manual) Myelocytes % (Man) Promyelocytes % (Man) Blast Cells % (Manual) Nucleated RBC % Metamyelocytes Hypochromia Toxic Granulation Platelet Estimate Platelet Comment Polychromasia Poikilocytosis Anisocytosis Microcytosis Target Cells Ovalocytes Fragmented RBCs PT with INR INR PTT (Actin FS) Fibrinogen Sodium Potassium Chloride Carbon Dioxide Anion Gap BUN Creatinine Creat Clearance w eGFR POC Glucometer [phone] Random Glucose Calcium Phosphorus Magnesium Total Bilirubin AST ALT Alkaline Phosphatase Troponin I 4.44 H* Total Protein Albumin 06/13/17 06/13/17 06/13/17 05:49 06:00 06:00 WBC 4.8 Corrected WBC (auto) 4.49 RBC 3.40 L Hgb 9.3 L Hct 29.0 L MCV 85.3 MCH 27.4 MCHC 32.1 RDW 19.6 H Plt Count 20 L* D MPV 8.4 Neutrophils % No Result Required. Neutrophils % (Manual) 76.8 D Band Neutrophils % 6.1 Lymphocytes % No Result Required. Lymphocytes % (Manual) 11.1 D Monocytes % (Manual) 0 L D Eosinophils % (Manual) 0.0 D Basophils % (Manual) 0.0 Myelocytes % (Man) 3 H D Promyelocytes % (Man) 0 Blast Cells % (Manual) 0 Nucleated RBC % 18 H* Metamyelocytes 3 H D Hypochromia 1+ Toxic Granulation 1+ Platelet Estimate Decreased Platelet Comment Giant platelets Polychromasia 1+ Poikilocytosis 1+ Anisocytosis 1+ Microcytosis 2+ Target Cells 1+ Ovalocytes 1+ Fragmented RBCs 1+ PT with INR INR PTT (Actin FS) Fibrinogen Sodium 137 Potassium 3.7 Chloride 98 Carbon Dioxide 14 L Anion Gap 25 H BUN 49 H Creatinine 2.6 H Creat Clearance w eGFR 18.91 POC Glucometer [phone] Random Glucose 110 H Calcium 9.1 Phosphorus 2.9 Magnesium 2.2 Total Bilirubin 4.6 H AST 35 ALT 9 L Alkaline Phosphatase 114 Troponin I Total Protein 4.9 L Albumin 1.7 L 06/13/17 06/13/17 06:00 06:00 WBC Corrected WBC (auto) RBC Hgb Hct MCV MCH MCHC RDW Plt Count MPV Neutrophils % Neutrophils % (Manual) Band Neutrophils % Lymphocytes % Lymphocytes % (Manual) Monocytes % (Manual) Eosinophils % (Manual) Basophils % (Manual) Myelocytes % (Man) Promyelocytes % (Man) Blast Cells % (Manual) Nucleated RBC % Metamyelocytes Hypochromia Toxic Granulation Platelet Estimate Platelet Comment Polychromasia Poikilocytosis Anisocytosis Microcytosis Target Cells Ovalocytes Fragmented RBCs PT with INR 15.30 H INR 1.35 H PTT (Actin FS) 46.8 H Fibrinogen 677.0 H Sodium Potassium Chloride Carbon Dioxide Anion Gap BUN Creatinine Creat Clearance w eGFR POC Glucometer Random Glucose Calcium Phosphorus Magnesium Total Bilirubin AST ALT Alkaline Phosphatase Troponin I 4.79 H* Total Protein Albumin Active Medications Generic Name Dose Route Start Last Admin Trade Name Freq PRN Reason Stop Dose Admin Albuterol/Ipratropium 1 amp 06/08/17 13:43 Duoneb - NEB Q6H PRN WHEEZING Amino Acids 30 ml 05/26/17 10:00 06/13/17 11:19 Prosource No Carb Liquid Pkt PO 30 ml DAILY RUEL Administration Calcitriol 0.25 mcg 06/11/17 10:30 06/13/17 11:19 Rocaltrol Liquid - NGT 0.25 mcg DAILY RUEL Administration Chlorhexidine Gluconate 1 applic 05/21/17 22:00 06/12/17 21:07 Hibiclens For Decolonization - TP 1 applic HS RUEL Administration Gabapentin 100 mg 05/26/17 22:00 06/13/17 06:05 Neurontin - NGT 100 mg TID RUEL Administration Sodium Chloride 250 mls @ 3,000 mls/hr 06/09/17 11:30 Normal Saline - IV PRN PRN Hypotension during Dialysis Norepinephrine Bitartrate 4, 500 mls @ 37.5 mls/hr 06/09/17 17:00 06/13/17 05 :40 000 mcg/ Dextrose IV 15 mcg/min TITR RUEL 112.5 mls/hr Protocol Titration 5 MCG/MIN Amiodarone HCl 450 mg/ 250 mls @ 16.66 mls/hr 06/12/17 17:30 06/12/17 19:20 Dextrose IVPB Not Given TITR RUEL Protocol 0.5 MG/MIN Vasopressin 50 units/ Sodium 100 mls @ 4.8 mls/hr 06/13/17 05:45 Chloride IVPB TITR RUEL Protocol 2.4 UNITS/HR Insulin Aspart 1 vial 05/22/17 22:00 06/13/17 16:30 Novolog Vial Sliding Scale - SQ Not Given ACHS RUEL Protocol Midodrine 10 mg 06/09/17 12:15 06/13/17 11:19 Proamatine - PO 10 mg TID-MID RUEL Administration Multivit/Ca Carb/B Cmplx/FA/Prenat 1 tablet 05/22/17 10:00 06/13/17 11:19 Nephro-Pancho - PO 1 tablet DAILY RUEL Administration Pantoprazole Sodium 40 mg 05/25/17 10:00 06/13/17 11:19 Protonix Iv IVPUSH 40 mg BID RUEL Administration ASSESSMENT/PLAN: 56F with PMH of DM, HTN, SD (s/p CABG 03/2017), and ESRD (on HD MWF), admitted to the ICU with shock, coagulopathy, currently off of abx, on pressors, s/p trach on 06/10. At 11:53am, notified by nurse that pt was very tachycardic and hypotensive. went to evaluate pt who was found to be hypotensive with MAP in 30s on levophed, tachycardic to 170-200s. Pt was found to be completely unresponsive and no pulse was found, so a code was initiated. The details of the code can be found in the official code sheet. The code was unsuccessful, and time of was called at 12:25. -Den Dsouza MD PGY1 ICU Team Visit type - Emergency Visit Emergency Visit: Yes ED Registration Date: 05/21/17 Care time: The patient presented to the Emergency Department on the above date and was hospitalized for further evaluation of their emergent condition. - New Patient This patient is new to me today: No - Critical Care Critical Care patient: Yes Total Critical Care Time (in minutes): 60 Critical Care Statement: The care of this patient involved high complexity decision making to prevent further life threatening deterioration of the patient 's condition and/or to evaluate & treat vital organ system(s) failure or risk of failure.
--- NOTE | 2017-06-15 16:25 | DS ---
Physical Examination Vital Signs: Vital Signs Temperature 98.8 F 06/13/17 06:00 Pulse Rate 125 H 06/13/17 08:00 Respiratory Rate 31 H 06/13/17 11:35 Blood Pressure 83/55 06/13/17 08:00 O2 Sat by Pulse Oximetry (%) 97 06/13/17 10:20 Findings/Remarks: see progress note of 06/13/17 Labs: CBC, BMP 06/13/17 06:00 06/13/17 06:00 Discharge Summary Reason For Visit: GASTROINTESTINAL HEMORRHAGE Hospital Course: pt with extensive pmhx as below s/p vt- rapid response Hypovolemic shock GI bleeding ESRD on HD CAD , s/p CABG, MV and TV replacement AMS Gangrene of b/l feet and left ring finger thrombocytopenia pt went into cardiac arrest unable to resuscitate - Instructions Referrals: ON STAFF,NOT [Non Staff, Medical] - Keyur Jones MD [Staff Physician] - Disposition: - Home Medications Comprehensive Discharge Medication List: Ambulatory Orders Aspirin [ASA -] 325 mg PO DAILY 05/21/17 Budesonide [Pulmicort Flexhaler] 90 mcg IH BID 05/21/17 Calcitriol [Rocaltrol -] 0.25 mcg PO ASDIR 05/21/17 Docusate Sodium 100 mg PO TID 05/21/17 Epoetin Keegan [Procrit] 10,000 unit SQ 05/21/17 Ipratropium/Albuterol Sulfate [Iprat-Albut 0.5-3(2.5) mg/3 ml] 3 ml IH Q4H 05/21 Midodrine HCl 5 mg PO ASDIR 05/21/17 Pantoprazole Sodium 40 mg PO DAILY 05/21/17 Sennosides [Senna Lax] 2 tab PO BID 05/21/17 Vit B Comp No.3/Folic/C/Biotin [Leticia-Pancho Rx Tablet] 1 each PO DAILY 05/21/17
== END 2017-06-13 19:00 | disposition expired | DRG 4 ==
LOC: SUPCPDRO 09:46 → JER 09:46 → JERBED 14:48 → JICU 17:00
PROVIDERS: ADMIT Internal Medicine; ATTEND Internal Medicine
PROC: 05HN33Z Insertion of Infusion Device into Left Internal Jugular Vein, Percutaneous Approach (ICD-10-PCS; 2017-05-21)
PROC: B514ZZA Fluoroscopy of Left Jugular Veins, Guidance (ICD-10-PCS; 2017-05-21)
PROC: 30233H1 Transfusion of Nonautologous Whole Blood into Peripheral Vein, Percutaneous Approach (ICD-10-PCS; 2017-05-21)
PROC: 5A1955Z Respiratory Ventilation, Greater than 96 Consecutive Hours (ICD-10-PCS; 2017-05-23)
PROC: 0BH17EZ Insertion of Endotracheal Airway into Trachea, Via Natural or Artificial Opening (ICD-10-PCS; 2017-05-23)
PROC: 30233K1 Transfusion of Nonautologous Frozen Plasma into Peripheral Vein, Percutaneous Approach (ICD-10-PCS; 2017-05-23)
PROC: 30233L1 Transfusion of Nonautologous Fresh Plasma into Peripheral Vein, Percutaneous Approach (ICD-10-PCS; 2017-05-23)
PROC: 5A1D70Z Performance of Urinary Filtration, Intermittent, Less than 6 Hours Per Day (ICD-10-PCS; 2017-05-23)
PROC: 30233R1 Transfusion of Nonautologous Platelets into Peripheral Vein, Percutaneous Approach (ICD-10-PCS; 2017-05-25)
PROC: 03HY32Z Insertion of Monitoring Device into Upper Artery, Percutaneous Approach (ICD-10-PCS; 2017-06-02)
PROC: B54MZZA Ultrasonography of Right Upper Extremity Veins, Guidance (ICD-10-PCS; 2017-06-02)
PROC: 06HN33Z Insertion of Infusion Device into Left Femoral Vein, Percutaneous Approach (ICD-10-PCS; 2017-06-05)
PROC: B51CZZA Fluoroscopy of Left Lower Extremity Veins, Guidance (ICD-10-PCS; 2017-06-05)
PROC: 0BJ08ZZ Inspection of Tracheobronchial Tree, Via Natural or Artificial Opening Endoscopic (ICD-10-PCS; 2017-06-10)
PROC: 0B113F4 Bypass Trachea to Cutaneous with Tracheostomy Device, Percutaneous Approach (ICD-10-PCS; principal; 2017-06-10 15:27)
PROC: 5A12012 Performance of Cardiac Output, Single, Manual (ICD-10-PCS; 2017-06-13)
DX: A41.9 Sepsis, unspecified organism (principal); R65.21 Severe sepsis with septic shock; R57.1 Hypovolemic shock; I47.2 Ventricular tachycardia; D68.9 Coagulation defect, unspecified; I96 Gangrene, not elsewhere classified; D61.818 Other pancytopenia; I12.0 Hypertensive chronic kidney disease with stage 5 chronic kidney disease or end stage renal disease; N18.6 End stage renal disease; I24.8 Other forms of acute ischemic heart disease; E87.2 Acidosis; E11.22 Type 2 diabetes mellitus with diabetic chronic kidney disease; I95.9 Hypotension, unspecified; D69.6 Thrombocytopenia, unspecified; E11.52 Type 2 diabetes mellitus with diabetic peripheral angiopathy with gangrene; I50.20 Unspecified systolic (congestive) heart failure; I36.1 Nonrheumatic tricuspid (valve) insufficiency; E87.70 Fluid overload, unspecified; I48.91 Unspecified atrial fibrillation; M06.1 Adult-onset Still's disease; D62 Acute posthemorrhagic anemia; E83.42 Hypomagnesemia; K62.5 Hemorrhage of anus and rectum; K64.4 Residual hemorrhoidal skin tags; J96.01 Acute respiratory failure with hypoxia; R68.0 Hypothermia, not associated with low environmental temperature; Z95.3 Presence of xenogenic heart valve; Z99.2 Dependence on renal dialysis; I45.10 Unspecified right bundle-branch block; I25.10 Atherosclerotic heart disease of native coronary artery without angina pectoris; Z95.1 Presence of aortocoronary bypass graft; Z66 Do not resuscitate; I25.2 Old myocardial infarction; K57.30 Diverticulosis of large intestine without perforation or abscess without bleeding; E66.9 Obesity, unspecified; Z68.30 Body mass index [BMI] 30.0-30.9, adult; Z95.4 Presence of other heart-valve replacement; E78.5 Hyperlipidemia, unspecified; R23.8 Other skin changes; E87.6 Hypokalemia; D63.8 Anemia in other chronic diseases classified elsewhere
CPT/HCPCS: 31500; 36415; 36430; 36600; 71045-TC-FY; 76700-TC; 80048; 80053; 80076; 82247; 82248; 82272; 82542; 82550; 82607; 82728; 82747; 82803; 82962; 83540; 83550; 83605; 83615; 83735; 83880; 84100; 84132; 84443; 84484; 85014; 85025; 85027; 85044; 85379; 85384; 85610; 85730; 86022; 86704; 86706; 86708; 86850; 86880; 86900; 86901; 86922; 87040; 87070; 87186; 87205; 87340; 90670; 93005; 93010; 93306-TC; 93925-TC; 94002; 94640; 99285-25; C1894; G0480; J0131; J0885; J1250; J2597; J7030; J7620; P9017; P9034; P9038; P9047; P9058